=== PATIENT | female | born 1965 | race Caucasian/White ===

== ENCOUNTER 2018-02-12 19:12 | Emergency (ER) | payer MEDICAID ==
--- NOTE | 2018-02-12 19:43 | EDM.PDOC ---
ED HPI GENERAL MEDICAL PROBLEM - General Chief Complaint: Genitourinary Problem Stated Complaint: POSS UTI Time Seen by Provider: 02/12/18 19:25 Source of Information: Reports: Patient, Significant Other (Boyfriend) History Limitations: Reports: No Limitations - History of Present Illness INITIAL COMMENTS - FREE TEXT/NARRATIVE: The patient states that she developed dysuria, urinary frequency, and urgency, as well as noticing slight blood when she wipes, this morning. She denies abdominal or back pain. No recent fever, nausea, or vomiting. No prior similar symptoms. The patient states that she has not taken any [id number] medications, such as Azo, today. The patient states that she just moved to [place] and does not have a PCP. Bladder Pain Score (Numeric/FACES): 8 - Related Data Home Meds: Home Meds Sulfamethoxazole/Trimethoprim [Bactrim Ds Tablet] 1 tab PO Q12H #9 tablet [Rx] Past Medical History Musculoskeletal History: Reports: Osteoarthritis, Other (See Below) (Scoliosis) Psychiatric History: Reports: Anxiety, Depression - Infectious Disease History Infectious Disease History: Reports: Hepatitis C (treated, cured) - Past Surgical History GI Surgical History: Reports: Appendectomy Female Surgical History: Reports: Hysterectomy Social & Family History - Tobacco Use Smoking Status *Q: Current Every Day Smoker Years of Tobacco use: 36 Packs/Tins Daily: 1 - Caffeine Use Caffeine Use: Reports: Coffee, Soda - Alcohol Use Alcohol Use History: Yes Date/Time of Last Drink Comment: In recovery since 2016 - Recreational Drug Use Recreational Drug Use: Yes Drug Use in Last 12 Months: Yes Recreational Drug Type: Reports: Marijuana/Hashish (last smoked mid 2016), Methamphetamine (last snorted mid 2016) Other Recreational Drug Type: past history-last used 1 yr ago - Living Situation & Occupation Living situation: Reports: , with Family (Daughter, her 2 kids, and her boyfriend) Occupation: Disabled ED ROS GENERAL - Review of Systems Review Of Systems: ROS reveals no pertinent complaints other than HPI. ED EXAM, RENAL/ - Physical Exam Exam: See Below Exam Limited By: No Limitations General Appearance: Alert, WD/WN, No Apparent Distress Eye Exam: Bilateral Eye: Normal Inspection Ears: Normal External Exam, Hearing Grossly Normal Nose: Normal Inspection, No Blood Throat/Mouth: Normal Inspection, Normal Lips, Normal Voice, No Airway Compromise Head: Atraumatic, Normocephalic Neck: Normal Inspection, Full Range of Motion Respiratory/Chest: No Respiratory Distress, Lungs Clear, Normal Breath Sounds, No Accessory Muscle Use Cardiovascular: Normal Peripheral Pulses, Regular Rate, Rhythm, No Gallop, No JVD, No Murmur, No Rub GI/Abdominal: Normal Bowel Sounds, Soft, Non-Tender (including suprapubically), No Organomegaly, No Distention, No Abnormal Bruit, No Mass (Female) Exam: Deferred Rectal (Female) Exam: Deferred Back Exam: Normal Inspection, Full Range of Motion. No: CVA Tenderness (L), CVA Tenderness (R) Extremities: Normal Inspection, Normal Range of Motion, No Pedal Edema, Normal Capillary Refill Neurological: Alert, Oriented, Normal Cognition, No Motor/Sensory Deficits Psychiatric: Normal Affect Skin Exam: Warm, Dry, Intact, Normal Color, No Rash Course - Vital Signs Last Recorded V/S: Last Vital Signs Temp 36.7 C 02/12/18 19:31 Pulse 84 02/12/18 19:31 Resp 20 02/12/18 19:31 BP 125/73 02/12/18 19:31 Pulse Ox 99 02/12/18 19:31 - Orders/Labs/Meds Orders: Active Orders 24 hr Category Date Time Status CULTURE URINE [RM] Stat Lab 02/12/18 20:37 Ordered Sulfamethoxazole/Trimethoprim [Septra DS] Med 02/12/18 20:38 Once 1 tab PO ONETIME ONE Labs: Laboratory Tests 02/12/18 Range/Units 19:18 Urine Color Dark yellow (Yellow) Urine Appearance Turbid H (Clear) Urine pH 6.5 (5.0-8.0) Ur Specific [place] > or = 1.030 (1.005-1.030) Urine Protein 2+ H (Negative) Urine Glucose (UA) Negative (Negative) Urine Ketones Trace H (Negative) Urine Occult Blood 3+ H (Negative) Urine Nitrite Positive H (Negative) Urine Bilirubin Negative (Negative) Urine Urobilinogen 1.0 (0.2-1.0) Ur Leukocyte Esterase 3+ H (Negative) Urine RBC 10-20 H (0-5) /hpf Urine WBC 10-20 H (0-5) /hpf Ur Epithelial Cells 0-5 (0-5) /hpf Urine Bacteria Few (FEW) /hpf Urine Mucus Few (FEW) /hpf - Re-Assessments/Exams Free Text/Narrative Re-Assessment/Exam: 02/12/18 20:38 The chemical analysis of the patient's urine was done quickly, however, there was a delay in receiving the microscopic analysis. The patient's urinalysis is consistent with a UTI. A urine culture has been ordered. I will start her on empiric Bactrim. She will also receive peridium, which she can purchase [id number] if she wishes. Departure - Departure Time of Disposition: 20:44 Disposition: Home, Self-Care 01 Condition: Good Clinical Impression: Cystitis - Discharge Information Referrals: PCP,None [Primary Care Provider] - Dania Tamez MD [Physician] - Forms: ED Department Discharge Additional Instructions: You were seen in the emergency room for burning with urination and frequent urination. Workup in the ER included a urinalysis, which confirmed that you have a urinary tract infection. You have been started on the antibiotic Bactrim. A prescription for Bactrim has been sent to the [facility] located in the [employer] store. Take one tablet every 12 hours, starting tomorrow morning, 02/13/2018, as prescribed. Finish the entire prescription unless told otherwise by a doctor. You have also been started on the pain medicine Azo (pyridium). This medicine is available [id number]. If you decide to take it, you may take a total of 6 doses, including the dose you had in the ER. You may take 2 doses a day for 3 days, or 3 doses a day for 2 days. Be aware that Azo will turn your urine orange - this is normal. Stay adequately hydrated. A sample of your urine has been sent for culture. The culture results should be back by 02/15/2018. Follow-up with Dr. Dania Tamez as a primary care physician on Tuesday, 2017, to check on your urine culture results, as well as to establish her as a primary care physician. If any other problems, please do not hesitate to return to the ER. - My Orders Last 24 Hours: My Active Orders 02/12/18 20:37 CULTURE URINE [RM] Stat 02/12/18 20:38 Sulfamethoxazole/Trimethoprim [Septra DS] 1 tab PO ONETIME ONE - Assessment/Plan Last 24 Hours: My Active Orders 02/12/18 20:37 CULTURE URINE [RM] Stat 02/12/18 20:38 Sulfamethoxazole/Trimethoprim [Septra DS] 1 tab PO ONETIME ONE
[2018-02-12] MEDS ORDERED: Sulfamethoxazole/Trimethoprim 800-160 MG Tab PO ONE (20:38)
[2018-02-12] MEDS ORDERED: Phenazopyridine 95 MG Tab PO STA (20:47)
== END 2018-02-12 21:00 | disposition home or self-care (01) ==
LOC: JD.ED 19:12
DX: N30.90 Cystitis, unspecified without hematuria (principal); F17.210 Nicotine dependence, cigarettes, uncomplicated
CPT/HCPCS: 81001; 87086; 87088; 87186; 99283; A9270

== ENCOUNTER 2018-05-19 09:06 | Emergency (ER) | payer MEDICAID ==
--- NOTE | 2018-05-19 10:03 | EDM.PDOC ---
<Heather Bruno - Last Filed: 05/19/18 09:56> ED HPI GENERAL MEDICAL PROBLEM - General Chief Complaint: ENT Problem Stated Complaint: DENTAL COMPLAINT Time Seen by Provider: 05/19/18 09:38 - History of Present Illness INITIAL COMMENTS - FREE TEXT/NARRATIVE: Florence is a 53-year-old woman who presents with dental pain in her right lower jaw for the past two days. Pain is partially relieved by Tylenol and hot/cold compresses. She does not regularly see a dentist and does not have dental insurance. She has a history of extensive tooth decay due to meth use. 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 Her top teeth have been removed and she wears dentures. She has no dental implants. Florence reports a mild bilateral temporal headache. She denies fever, chills, shortness of breath, difficulty eating/swallowing, difficulty speaking or difficulty moving her tongue. She takes Paxil and trazodone and is a 0.75 pack- per-day smoker. She smoked from age 16 until she became with her daughter in 1998 (18 years), and started smoking again 14 months ago when she stopped using meth. She is concerned about substance abuse, so she does not want to take any narcotic pain medication. Right Lower Oral/Mouth Pain Score (Numeric/FACES): 9 - Related Data Allergies Allergy/AdvReac Type Severity Reaction Status Date / Time ketorolac [From Toradol] Allergy Vomiting Verified 05/19/18 09:14 Home Meds: Home Meds Amoxicillin/Potassium Clav [Augmentin 875-125 Tablet] 1 each PO BID #14 tablet 05/19/18 [Rx] Naproxen [Naprosyn] 500 mg PO Q12HR #14 tab 05/19/18 [Rx] PARoxetine [Paxil] 20 mg PO DAILY 05/19/18 [History] traZODone HCl [Trazodone HCl] 150 mg PO BEDTIME 05/19/18 [History] Past Medical History HEENT History: Reports: Impaired Vision Respiratory History: Reports: COPD Genitourinary History: Reports: UTI, Recurrent 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 - Past Surgical History HEENT Surgical History: Reports: Oral Surgery GI Surgical History: Reports: Appendectomy Female Surgical History: Reports: Hysterectomy Social & Family History - Family History Family Medical History: Noncontributory Cardiac: Reports: CAD Oncologic: Reports: Breast - Tobacco Use Smoking Status *Q: Current Every Day Smoker Years of Tobacco use: 30 Packs/Tins Daily: 0.7 - Caffeine Use Caffeine Use: Reports: Coffee - Recreational Drug Use Recreational Drug Use: Yes Drug Use in Last 12 Months: No Recreational Drug Type: Reports: Methamphetamine - Living Situation & Occupation Living situation: Reports: , with Family (Daughter, her 2 kids, and her boyfriend) Occupation: Disabled ED ROS ENT - Review of Systems Review Of Systems: ROS reveals no pertinent complaints other than HPI. Constitutional: Denies: Fever, Chills HEENT: Reports: Dental Pain (dental pain in right lower jaw). Denies: Ear Discharge, Eye Pain, Sinus Problem, Throat Pain, Throat Swelling Respiratory: Denies: Shortness of Breath, Cough Cardiovascular: Reports: No Symptoms Endocrine: Reports: Other GI/Abdominal: Reports: No Symptoms Musculoskeletal: Reports: No Symptoms Skin: Reports: No Symptoms Neurological: Reports: Headache (bilateral temporal headache, mild). Denies: Trouble Speaking, Change in Speech Psychiatric: Reports: Other Immunologic: Reports: No Symptoms, Other (no known allergies to antibiotics) ED EXAM, ENT - Physical Exam Exam Limited By: No Limitations General Appearance: Alert, Mild Distress, Thin Eye Exam: Bilateral Eye: EOMI Ears: Normal External Exam. No: Mastoid Swelling, Mastoid Tenderness Mouth/Throat: Dental Pain, Dental Tenderness. No: Normal Teeth (dentures on upper teeth; widespread dental decay on lower teeth. Did not appreciate any masses in the mouth. Moderate tenderness diffusely to right lower gumline. Multiple teeth are missing from the lower jaw, including all molars on the right lower jaw. ), Bleeding, Hoarse Voice, Lip Swelling, Oral Ulcers, Pharyngeal Erythema, Throat Swelling, Tonsillar Exudates Neck: Normal Inspection (no fullness or lymphadenopathy noted), Non-Tender, Lymphadenopathy (L) Cardiovascular: Normal Peripheral Pulses, Regular Rate, Rhythm Psychiatric: Anxious Course - Vital Signs Last Recorded V/S: Last Vital Signs Temp 97.2 F 05/19/18 09:19 Pulse 80 05/19/18 09:19 Resp 16 05/19/18 09:19 BP 122/62 05/19/18 09:19 Pulse Ox 96 05/19/18 09:19 Departure - Departure Disposition: Home, Self-Care 01 Clinical Impression: Pain, dental - Discharge Information Prescriptions: Naproxen [Naprosyn] 500 mg PO Q12HR #14 tab Amoxicillin/Potassium Clav [Augmentin 875-125 Tablet] 1 each PO BID #14 tablet Instructions: Preventive Dental Care, Adult Referrals: Ping Tamez MD [Primary Care Provider] - Forms: ED Department Discharge Additional Instructions: augmentin 875 mg twice daily, take that with food. Naprosyn 500 mg twice daily for pain and inflamation as needed. See dentist as soon as possible, early next week preferable. Follow up clinic if unable to get into dentist next week and symptoms not resolving as expected. Return to ED as needed. <Wilfrido Horner - Last Filed: 05/22/18 12:15> ED ROS ENT - Review of Systems Review Of Systems: See Below ED EXAM, ENT - Physical Exam Exam: See Below Course - Re-Assessments/Exams Free Text/Narrative Re-Assessment/Exam: 05/22/18 12:14 inititial hx and exam was done by Heather Wesley, 4th year medical student. I also interviewed and examined patient. I agree with her hx and exam as documented. Discharge instr. as documented. Departure - Departure Time of Disposition: 10:14 Condition: Fair
== END 2018-05-19 10:38 | disposition home or self-care (01) ==
LOC: JD.ED 09:06
DX: K02.9 Dental caries, unspecified (principal); F17.210 Nicotine dependence, cigarettes, uncomplicated; F41.9 Anxiety disorder, unspecified; F32.9 Major depressive disorder, single episode, unspecified; Z79.899 Other long term (current) drug therapy; Z88.6 Allergy status to analgesic agent
CPT/HCPCS: 99283

== ENCOUNTER 2018-10-28 20:48 | Emergency (ER) | payer MEDICAID ==
[2018-10-28] MEDS ORDERED: HYDROmorphone 1 MG/ML Syringe IM ONE (21:47)
--- NOTE | 2018-10-28 21:53 | EDM.PDOC ---
ED HPI GENERAL MEDICAL PROBLEM - General Chief Complaint: Lower Extremity Injury/Pain Stated Complaint: LEFT KNEE PAIN FELL ON ICE Time Seen by Provider: 10/28/18 21:03 Source of Information: Reports: Patient, RN Notes Reviewed History Limitations: Reports: No Limitations - History of Present Illness INITIAL COMMENTS - FREE TEXT/NARRATIVE: Patient is a 53-year-old female who presents to the ED for the evaluation of left knee pain after a fall on the ice. He states that approximately 6:30 PM tonight she was walking out of her house when she slipped on the ice and fell and hit the lateral side of her left knee. She states that this was just below her left knee, she did not take anything for pain at this time. She states that her foot feels numb however she does have good pulses and can feel my touch and move her toes and ankle appropriately. Her primary care doc is Dr. Tamez. She denies any left hip pain or left ankle pain. She would rate her pain at a 8 out of 10 today. She further denies hitting her head or any loss of consciousness. 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 - Past Surgical History HEENT Surgical History: Reports: Oral Surgery GI Surgical History: Reports: Appendectomy Female Surgical History: Reports: Hysterectomy Social & Family History - Family History Family Medical History: Noncontributory Cardiac: Reports: CAD Oncologic: Reports: Breast - Caffeine Use Caffeine Use: Reports: Coffee - Living Situation & Occupation Living situation: Reports: , with Family (Daughter, her 2 kids, and her boyfriend) Occupation: Disabled Review of Systems - Review of Systems Review Of Systems: See Below Constitutional: Reports: No Symptoms Eyes: Reports: No Symptoms Ears: Reports: No Symptoms Nose: Reports: No Symptoms Mouth/Throat: Reports: No Symptoms Respiratory: Reports: No Symptoms Cardiovascular: Reports: No Symptoms GI/Abdominal: Reports: No Symptoms Genitourinary: Reports: No Symptoms Musculoskeletal: Reports: Leg Pain (Left lower leg just inferior to left knee) Skin: Reports: No Symptoms Neurological: Reports: No Symptoms Psychiatric: Reports: No Symptoms ED EXAM, GENERAL - Physical Exam Exam: See Below Exam Limited By: No Limitations General Appearance: Alert, WD/WN, No Apparent Distress Eye Exam: Bilateral Eye: Normal Inspection Head: Atraumatic, Normocephalic Neck: Normal Inspection, Supple, Non-Tender, Full Range of Motion Respiratory/Chest: No Respiratory Distress, Lungs Clear, Normal Breath Sounds, No Accessory Muscle Use, Chest Non-Tender Cardiovascular: Normal Peripheral Pulses, Regular Rate, Rhythm, No Murmur GI/Abdominal: Normal Bowel Sounds, Soft, Non-Tender, No Distention Back Exam: Normal Inspection, Full Range of Motion Extremities: Normal Inspection, No Pedal Edema, Normal Capillary Refill, Limited Range of Motion (Of left knee secondary to pain). No: Joint Swelling, Mottled Neurological: Alert, Oriented, Normal Cognition, Normal Reflexes, No Motor/ Sensory Deficits Psychiatric: Normal Affect, Normal Mood Skin Exam: Warm, Dry, Intact, Normal Color, No Rash Course - Vital Signs Last Recorded V/S: Last Vital Signs Temp 99.0 F 10/28/18 21:03 Pulse 74 10/28/18 21:03 Resp 20 10/28/18 21:03 BP 115/62 10/28/18 21:03 Pulse Ox 99 10/28/18 21:03 - Orders/Labs/Meds Orders: Active Orders 24 hr Category Date Time Status Knee 3V Lt [CR] Stat Exams 10/28/18 21:22 Ordered Tibia Fibula Lt [CR] Stat Exams 10/28/18 21:22 Ordered HYDROmorphone [Dilaudid] Med 10/28/18 21:47 Once 0.5 mg IM ONETIME ONE - Re-Assessments/Exams Free Text/Narrative Re-Assessment/Exam: 10/28/18 21:52 Patient presents to the ED for the evaluation of left knee pain. I did order a left knee x-ray and left tib-fib x-ray in further evaluation of this. Did review this with Dr. Baeza and there is no acute fracture that is appreciated at this time. Will give general recommendations and discharge home. Have ordered 0.5 mg of IM Dilaudid for pain management in the ED ivette. Departure - Departure Time of Disposition: 21:53 Disposition: Home, Self-Care 01 Condition: Fair Clinical Impression: Knee pain Qualifiers: Chronicity: acute Laterality: left Qualified Code(s): M25.562 - Pain in left knee - Discharge Information *PRESCRIPTION DRUG MONITORING PROGRAM REVIEWED*: No *COPY OF PRESCRIPTION DRUG MONITORING REPORT IN PATIENT RUFINO: No Instructions: Knee Pain, Adult, [id number] Referrals: Ping Tamez MD [Primary Care Provider] - Additional Instructions: You have been evaluated in the ED for your left knee pain. Your x-ray demonstrated no acute fracture of your left knee or left lower leg. Please use ice/heat as tolerated to the affected area. You may take Aleve 500mg Q12 hours for pain relief. Please do so until you have a tolerable level of pain with activity. If your pain does not get much better within 1-1/2 to 2 weeks please seek re- evaluation by your primary care provider for a possible soft tissue injury not made apparent at ivette's visit. Please return to ED if your symptoms should change or worsen. - My Orders Last 24 Hours: My Active Orders 10/28/18 21:22 Knee 3V Lt [CR] Stat Tibia Fibula Lt [CR] Stat 10/28/18 21:47 HYDROmorphone [Dilaudid] 0.5 mg IM ONETIME ONE - Assessment/Plan Last 24 Hours: My Active Orders 10/28/18 21:22 Knee 3V Lt [CR] Stat Tibia Fibula Lt [CR] Stat 10/28/18 21:47 HYDROmorphone [Dilaudid] 0.5 mg IM ONETIME ONE
--- NOTE | 2018-10-30 07:03 | CR ---
Left knee: AP, lateral and sunrise patellar views of the left knee were obtained. Comparison: No prior knee exam. Medial and lateral joint compartments are maintained in height. No joint effusion is seen. No acute fracture or other abnormality is seen. Impression: 1. No abnormality is appreciated on left knee exam. Diagnostic code #1
--- NOTE | 2018-10-30 07:03 | CR ---
Left tibia and fibula: Two views of the left tibia and fibula were obtained. Comparison: No previous study. No fracture or other bony abnormality is seen. Impression: 1. No abnormality is seen on two-view left tibia and fibula exam. Diagnostic code #1
== END 2018-10-28 22:42 | disposition home or self-care (01) ==
LOC: JD.ED 20:48
DX: M25.562 Pain in left knee (principal); F41.9 Anxiety disorder, unspecified; F32.9 Major depressive disorder, single episode, unspecified; Z79.899 Other long term (current) drug therapy; Z88.6 Allergy status to analgesic agent; W00.0XXA Fall on same level due to ice and snow, initial encounter
CPT/HCPCS: 73562; 73590; 96372; 99283; J1170

== ENCOUNTER 2019-08-14 17:28 | Observation (INO) | payer MEDICAID ==
[2019-08-14] MEDS ORDERED: HYDROmorphone 0.5 MG/0.5 ML Syringe IVPUSH ONE ×2 (17:57→19:01)
[2019-08-14] MEDS ORDERED: Ondansetron 4 MG/2 ML SDV IVPUSH ONE (17:57)
[2019-08-14] MEDS ORDERED: Sodium Chloride 0.9% 10 ML Syringe FLUSH PRN (17:57)
--- NOTE | 2019-08-14 18:12 | EDM.PDOC ---
<Wilfrido Horner Radha - Last Filed: 08/14/19 19:01> ED HPI GENERAL MEDICAL PROBLEM - General Chief Complaint: Abdominal Pain Stated Complaint: R SIDE ABD PAIN Time Seen by Provider: 08/14/19 17:52 Source of Information: Reports: Patient, RN Notes Reviewed - History of Present Illness INITIAL COMMENTS - FREE TEXT/NARRATIVE: 54-year-old lady comes in with severe abdominal pain. This started about 3 hours ago. Upper right abdomen with some radiation to her back. It is severe, sharp and shooting. Nausea but no vomiting. She had felt fine earlier today. She did eat a light breakfast this past AM and than had steak and cheesy potato hashbrowns about 4 hrs ago. There is been no diarrhea. No other family members ill. She has had prior appendectomy, she still does have her gallbladder with no history of prior gallbladder related problems. 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: Reports: Other (see below) Other 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: none Right Upper Abdomen Pain Score (Numeric/FACES): 10 - Related Data Allergies Allergy/AdvReac Type Severity Reaction Status Date / Time ketorolac [From Toradol] Allergy Vomiting Verified 10/28/18 21:08 Home Meds: Home Meds traZODone HCl [Trazodone HCl] 150 mg PO BEDTIME 05/19/18 [History] Sertraline [Zoloft] 25 mg PO DAILY 08/14/19 [History] carBAMazepine [Carbamazepine] 200 mg PO BID 08/14/19 [History] Past Medical History HEENT History: Reports: Impaired Vision Respiratory History: Reports: COPD Genitourinary History: Reports: UTI, Recurrent 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 - Infectious Disease History Infectious Disease History: Reports: Hepatitis C Other Infectious Disease History: had treatment and now is clear since November. - Past Surgical History HEENT Surgical History: Reports: Oral Surgery GI Surgical History: Reports: Appendectomy Female Surgical History: Reports: Hysterectomy Social & Family History - Family History Family Medical History: Noncontributory Cardiac: Reports: CAD Oncologic: Reports: Breast - Tobacco Use Smoking Status *Q: Current Every Day Smoker Years of Tobacco use: 2 Packs/Tins Daily: 1 - Caffeine Use Caffeine Use: Reports: Coffee, Soda - Recreational Drug Use Recreational Drug Use: No - Living Situation & Occupation Living situation: Reports: , with Family (Daughter, her 2 kids, and her boyfriend) Occupation: Disabled ED ROS GENERAL - Review of Systems Review Of Systems: See Below Constitutional: Denies: Fever, Chills, Diaphoresis HEENT: Reports: No Symptoms Respiratory: Denies: Shortness of Breath Cardiovascular: Denies: Chest Pain GI/Abdominal: Reports: Abdominal Pain, Nausea. Denies: Diarrhea, Hematochezia, Melena, Vomiting : Reports: No Symptoms Musculoskeletal: Reports: Back Pain Skin: Reports: No Symptoms Neurological: Reports: No Symptoms ED EXAM, GI/ABD - Physical Exam Exam: See Below General Appearance: Alert, Moderate Distress Throat/Mouth: Normal Inspection, Normal Oropharynx Head: Atraumatic. No: Facial Swelling Neck: Supple, Full Range of Motion Respiratory/Chest: No Respiratory Distress, Lungs Clear, Normal Breath Sounds Cardiovascular: Regular Rate, Rhythm GI/Abdominal Exam: Soft, Tender (Right upper abdomen, upper mid abdomen, left abdomen nontender). No: Guarding, Rebound Back Exam: No: CVA Tenderness (L), CVA Tenderness (R) Extremities: Normal Inspection, Normal Range of Motion Neurological: Alert, Oriented, No Motor/Sensory Deficits Skin Exam: Warm, Dry, Normal Color Course - Vital Signs Last Recorded V/S: Last Vital Signs Temp 37.1 C 08/14/19 17:44 Pulse 86 08/14/19 17:44 Resp 20 08/14/19 17:44 BP 116/73 08/14/19 17:44 Pulse Ox 100 08/14/19 17:44 - Orders/Labs/Meds Orders: Active Orders 24 hr Category Date Time Status Patient Status [ADT] Routine ADT 08/14/19 23:59 Active Activity as Tolerated [RC] .Routine Care 08/14/19 23:59 Ordered Antiembolic Devices [RC] PER UNIT ROUTINE Care 08/15/19 00:00 Ordered Oxygen Therapy [RC] PRN Care 08/14/19 23:59 Ordered Peripheral IV Care [RC] . DIRECTED Care 08/14/19 17:58 Active RT Incentive Spirometry [RC] Q1HWA Care 08/14/19 23:59 Ordered Vital Signs [RC] Q8H Care 08/14/19 23:59 Ordered Nothing Per Oral Diet [DIET] Diet 08/15/19 Breakfast Ordered Abdomen Pelvis w Cont [CT] Stat Exams 08/14/19 21:58 Taken CBC WITH AUTO DIFF [HEME] AM Lab 08/15/19 05:11 Ordered Heparin Sodium Med 08/14/19 23:45 Ordered 5,000 units SUBCUT Q8H Lactated Ringers @ 100 MLS/HR(1000ml Bag) Med 08/14/19 23:45 Ordered Lactated Ringers [Ringers, Lactated] 1,000 ml IV ASDIRECTED Sertraline [Zoloft] Med 08/15/19 09:00 Ordered 25 mg PO DAILY Sodium Chloride 0.9% [Saline Flush] Med 08/14/19 17:57 Active 10 ml FLUSH ASDIRECTED PRN carBAMazepine [TEGretol Tab] Med 08/15/19 09:00 Ordered 200 mg PO BID traZODone HCl [Trazodone HCl] Med 08/15/19 21:00 Ordered 150 mg PO BEDTIME Peripheral IV Insertion Adult [OM.PC] Stat Oth 08/14/19 17:57 Ordered Sequential Compression Device [OM.PC] Routine Oth 08/14/19 23:59 Ordered Resuscitation Status Routine Resus Stat 08/14/19 23:58 Ordered Medication Orders Sodium Chloride (Saline Flush) 10 ml FLUSH ASDIRECTED PRN PRN Reason: Keep Vein Open Last Admin: 08/14/19 18:12 Dose: 10 ml Labs: Laboratory Tests 08/14/19 08/14/19 08/14/19 Range/Units 18:05 18:05 18:05 WBC 19.34 H (3.98-10.04) K/mm3 RBC 4.57 (3.98-5.22) M/mm3 Hgb 13.4 (11.2-15.7) gm/dl Hct 39.5 (34.1-44.9) % MCV 86.4 (79.4-94.8) fl MCH 29.3 (25.6-32.2) pg MCHC 33.9 (32.2-35.5) g/dl RDW Std Deviation 39.9 (36.4-46.3) fL Plt Count 475 H (182-369) K/mm3 MPV 9.3 L (9.4-12.3) fl Neut % (Auto) 81.7 H (34.0-71.1) % Lymph % (Auto) 12.0 L (19.3-51.7) % [place] % (Auto) 5.7 (4.7-12.5) % Eos % (Auto) 0.2 L (0.7-5.8) Baso % (Auto) 0.2 (0.1-1.2) % Neut # (Auto) 15.79 H (1.56-6.13) K/mm3 Lymph # (Auto) 2.33 (1.18-3.74) K/mm3 [place] # (Auto) 1.11 H (0.24-0.36) K/mm3 Eos # (Auto) 0.04 (0.04-0.36) K/mm3 Baso # (Auto) 0.03 (0.01-0.08) K/mm3 Manual Slide Review Abnormal smear Sodium 140 (136-145) mEq/L Potassium 3.5 (3.5-5.1) mEq/L Chloride 100 (98-107) mEq/L Carbon Dioxide 26 (21-32) mEq/L Anion Gap 17.5 H (5-15) BUN 10 (7-18) mg/dL Creatinine 0.7 (0.55-1.02) mg/dL Est Cr Clr Drug Dosing 72.37 mL/min Estimated GFR (MDRD) > 60 (>60) mL/min BUN/Creatinine Ratio 14.3 (14-18) Glucose 104 (74-106) mg/dL Calcium 9.2 (8.5-10.1) mg/dL Total Bilirubin 0.3 (0.2-1.0) mg/dL GGT 40 (5-55) U/L AST 15 (15-37) U/L ALT 19 (14-59) U/L Alkaline Phosphatase 101 (46-116) U/L C-Reactive Protein 7.8 H* (<1.0) mg/dL Total Protein 8.1 (6.4-8.2) g/dl Albumin 3.3 L (3.4-5.0) g/dl Globulin 4.8 gm/dL Albumin/Globulin Ratio 0.7 L (1-2) Lipase 227 (73-393) U/L Meds: Medications Generic Name Dose Route Start Last Admin Trade Name Freq PRN Reason Stop Dose Admin Sodium Chloride 10 ml 08/14/19 17:57 08/14/19 18:12 Saline Flush FLUSH 10 ml ASDIRECTED PRN Administration Keep Vein Open Discontinued Medications Generic Name Dose Route Start Last Admin Trade Name Freq PRN Reason Stop Dose Admin Hydromorphone HCl 0.5 mg 08/14/19 17:57 08/14/19 18:06 Dilaudid IVPUSH 08/14/19 17:58 0.5 mg ONETIME ONE Administration Hydromorphone HCl 0.5 mg 08/14/19 19:01 08/14/19 19:14 Dilaudid IVPUSH 08/14/19 19:02 0.5 mg ONETIME ONE Administration Ondansetron HCl 4 mg 08/14/19 17:57 08/14/19 18:08 Zofran IVPUSH 08/14/19 17:58 4 mg ONETIME ONE Administration - Re-Assessments/Exams Free Text/Narrative Re-Assessment/Exam: 08/14/19 18:55 White blood count is come back elevated at 19,300, C-reactive protein 7.8. Lipase is normal. Bilirubin, LFTs normal. 08/14/19 18:56 08/14/19 19:01 right upper quadrant pain is starting to come back. Will repeat Dilaudid 0.5 mg IV. As noted in history she does have history of prior appendectomy. She was pain-free up until just 3 or 4 hours ago. She did have steak with cheesy hashbrowns at around 2:30 this afternoon so we'll have to wait until about 8:30 to get a RUQ US which she probably needs this evening with consideration of severe RUQ pain that is not going away and quite elevated WBC. It is change of shift. Will transfer care to Dr Cantrell. Departure - Departure Disposition: Admitted As Inpatient 66 Clinical Impression: Acute cholecystitis - Discharge Information Referrals: Ping Tamez MD [Primary Care Provider] - Macho Garrison MD [Physician] - Forms: ED Department Discharge Sepsis Event Note - Evaluation Sepsis Screening Result: No Definite Risk - Focused Exam Vital Signs: Vital Signs Temp Pulse Resp BP Pulse Ox 08/14/19 17:44 37.1 C 86 20 116/73 100 Date Exam was Performed: 08/14/19 Time Exam was Performed: 19:01 - My Orders Last 24 Hours: My Active Orders 08/14/19 21:58 Abdomen Pelvis w Cont [CT] Stat - Assessment/Plan Last 24 Hours: My Active Orders 08/14/19 21:58 Abdomen Pelvis w Cont [CT] Stat <Crow Cantrell - Last Filed: 08/15/19 00:03> Social & Family History - Tobacco Use Years of Tobacco use: 32 - Alcohol Use Alcohol Use History: Yes Date/Time of Last Drink Comment: Alcoholic - sober since 2017 - Recreational Drug Use Recreational Drug Use: Yes Drug Use in Last 12 Months: No Recreational Drug Type: Reports: Marijuana/Hashish (last smoked 2016), Methamphetamine (last snorted 2016) - Living Situation & Occupation Living situation: Reports: , with Significant Other (Boyfriend) Occupation: Unemployed ED ROS GENERAL - Review of Systems Review Of Systems: Comprehensive ROS is negative, except as noted in HPI. Course - Re-Assessments/Exams Free Text/Narrative Re-Assessment/Exam: 08/14/19 21:[address] Horner. Ultrasound of the right upper quadrant is read by Dr. Roldan as: 1. Slightly dilated gallbladder as well as mildly dilated CBD. No shadowing gallstones are seen. Gallbladder wall is slightly thickened. Acalculous cholecystitis is difficult to exclude. Biliary HIDA scan with ejection fraction would be helpful to further evaluate. 2. No additional abnormality is identified on right upper quadrant abdominal ultrasound. 08/14/19 21:57 At present, the patient is relatively pain-free, although she states that the pain may be coming back. On examination, she has no abdominal tenderness whatsoever. Case discussed with Dr. Garrison at 21:53. He does not feel that there is enough evidence to justify undergoing a cholecystectomy at this time, primarily because of the lack of gallstones, however, he would like me to order a CT scan of the abdomen and pelvis - primarily because of the elevated WBC count - and he will come to the ED to evaluate the patient himself, shortly. 08/14/19 23:33 Dr. Garrison is here. He has viewed the CT images, although the Radiologist's report has not yet resulted. He will evaluate the patient. 08/14/19 23:56 CT of the abdomen and pelvis with oral and IV contrast is read by [facility] as: 1. A couple of pulmonary nodules at the left lung base measuring up to 5 mm. Further workup may be indicated. 2. Irregular enhancement of the biliary endothelium. While this could represent cholangitis, cholangiocarcinoma is also of concern. 3. Dilatation of the gallbladder and intrahepatic bile ducts. 4. eccentric [sic] gallbladder wall thickening that is present raises the question of cholecystitis. 5. Solitary 2 cm hepatic mass, suspicious for metastasis. Case discussed with Dr. Garrison. He has evaluated the patient and discussed the case with the [facility] Radiologist leasing professional. While the patient's abdominal exam is now benign, Dr. Garrison would like to admit her to his service to perform a HIDA scan tomorrow. If positive, he plans to take the patient to the operating room for a lap-cholecystectomy. If negative, she will need an outpatient workup that will likely include an ERCP. Departure - Departure Time of Disposition: 00:01 Condition: Fair - Discharge Information *PRESCRIPTION DRUG MONITORING PROGRAM REVIEWED*: Not Applicable *COPY OF PRESCRIPTION DRUG MONITORING REPORT IN PATIENT RUFINO: Not Applicable Sepsis Event Note - Focused Exam Date Exam was Performed: 08/15/19 Time Exam was Performed: 00:02 - My Orders Last 24 Hours: My Active Orders 08/14/19 21:58 Abdomen Pelvis w Cont [CT] Stat - Assessment/Plan Last 24 Hours: My Active Orders 08/14/19 21:58 Abdomen Pelvis w Cont [CT] Stat
--- NOTE | 2019-08-14 21:30 | US ---
Limited abdominal ultrasound: Multiple real-time images of the upper right abdomen were obtained. Comparison: No previous abdominal imaging. Liver shows no focal abnormality. Right kidney shows no hydronephrosis or mass and has a length of 10.1 cm. Common bile duct is somewhat dilated at 7.3 cm. Gallbladder is also slightly dilated. No shadowing gallstones are seen. Gallbladder wall appears somewhat thickened. Impression: 1. Slightly dilated gallbladder as well as mildly dilated CBD. No shadowing gallstones are seen. Gallbladder wall is slightly thickened. Acalculous cholecystitis is difficult to exclude. Biliary HIDA scan with ejection fraction would be helpful to further evaluate. 2. No additional abnormality is identified on right upper quadrant abdominal ultrasound. Diagnostic code #3 This report was dictated in [place] Standard Time
[2019-08-14] MEDS ORDERED: Lactated Ringers 1,000 ML IV SCH (23:45)
--- NOTE | 2019-08-15 00:15 | PCM.HP.2 ---
H&P History of Present Illness - General Date of Service: 08/15/19 Admit Problem/Dx: Admission Diagnosis/Problem Admission Diagnosis/Problem Cholecystitis without cholelithiasis Source of Information: Patient History Limitations: Reports: No Limitations - History of Present Illness Onset of Symptoms: Reports: Today Duration of Symptoms: Reports: Hour(s):, Improving Location: Reports: Abdomen Severity: Severe Associated Symptoms: Reports: No Other Symptoms Other HPI/Comments: Ms. Collins is a 54 yo woman presenting with RUQ pain. The pain began at 2 pm on 08/14 about one hour after eating steak and cheesy potatoes. The pain was severe and localized at the right upper quadrant. She denies associated symptoms such as fever or nausea. She has never had this pain before. It has essentially gone away at the time of evaluation, 10 hours after onset. She reports only psychiatric health issues and takes medications for depression/ anxiety. She has a history of Hepatitis C but has been disease free for 2.5 years per her report. She has had an open appendectomy and hysterectomy in the past. She denies any history of IV drug use. She has extensive tattoos. She is a smoker and denies any other drug use within the past two years. Her mother was an alcoholic and of complications from cirrhosis. On presentation, the patient has a WBC >19,000 with otherwise normal labs including LFTs. Her vitals are normal and abdominal exam benign. She does have a palpable large gallbladder, which is seen on CT scan. The scan shws a small radiodense lesion on the right lobe of the liver that looks like a small abscess or metastasis. The gallbladder is very large with thickened wall and some pericholecystic fluid but no evidence of gallstones. Per discussion with the initial interpreting radiologist, the distal common bile duct epithelial surface appears abnormal, raising concern for cholangiocarcinoma. 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 - Infectious Disease History Infectious Disease History: Reports: Hepatitis C Other Infectious Disease History: had treatment and now is clear since November. - Past Surgical History HEENT Surgical History: Reports: Oral Surgery GI Surgical History: Reports: Appendectomy Female Surgical History: Reports: Hysterectomy Social & Family History - Family History Family Medical History: Noncontributory Cardiac: Reports: CAD Oncologic: Reports: Breast - Tobacco Use Smoking Status *Q: Current Every Day Smoker Years of Tobacco use: 32 Packs/Tins Daily: 1 - Caffeine Use Caffeine Use: Reports: Coffee, Soda - Recreational Drug Use Recreational Drug Use: Yes Drug Use in Last 12 Months: No Recreational Drug Type: Reports: Marijuana/Hashish (last smoked 2016), Methamphetamine (last snorted 2016) - Living Situation & Occupation Living situation: Reports: , with Significant Other (Boyfriend) Occupation: Unemployed H&P Review of Systems - Review of Systems: Review Of Systems: See Below General: Reports: No Symptoms HEENT: Reports: No Symptoms Pulmonary: Reports: No Symptoms Cardiovascular: Reports: No Symptoms Gastrointestinal: Reports: Abdominal Pain, Constipation, Nausea Genitourinary: Reports: No Symptoms Musculoskeletal: Reports: No Symptoms Skin: Reports: No Symptoms Psychiatric: Reports: No Symptoms Neurological: Reports: No Symptoms Hematologic/Lymphatic: Reports: No Symptoms Immunologic: Reports: No Symptoms Exam - Exam Exam: See Below - Vital Signs Vital Signs: Last Vital Signs Temp 37.1 C 08/14/19 17:44 Pulse 86 08/14/19 17:44 Resp 20 08/14/19 17:44 BP 116/73 08/14/19 17:44 Pulse Ox 100 08/14/19 17:44 Weight: 49.895 kg - Exam General: Alert, Oriented, Cooperative HEENT: Conjunctiva Clear, Other (nearly edentulous with upper dentures) Neck: Supple Lungs: Clear to Auscultation, Normal Respiratory Effort Cardiovascular: Regular Rate GI/Abdominal Exam: Soft, Non-Tender, No Distention, Mass (Female) Exam: Deferred Rectal (Female) Exam: Deferred Back Exam: Normal Inspection Extremities: Normal Inspection Peripheral Pulses: 2+: Radial (L), Radial (R) Skin: Warm, Dry, Intact, Other (extensive tattoos) Neurological: Strength Equal Bilateral, Normal Gait Neuro Extensive - Mental Status: Alert, Oriented x3, Normal Mood/Affect Psychiatric: Alert, Normal Affect, Normal Mood - Patient Data Lab Results Last 24 hrs: Laboratory Results - last 24 hr 08/14/19 08/14/19 08/14/19 Range/Units 18:05 18:05 18:05 WBC 19.34 H (3.98-10.04) K/mm3 RBC 4.57 (3.98-5.22) M/mm3 Hgb 13.4 (11.2-15.7) gm/dl Hct 39.5 (34.1-44.9) % MCV 86.4 (79.4-94.8) fl MCH 29.3 (25.6-32.2) pg MCHC 33.9 (32.2-35.5) g/dl RDW Std Deviation 39.9 (36.4-46.3) fL Plt Count 475 H (182-369) K/mm3 MPV 9.3 L (9.4-12.3) fl Neut % (Auto) 81.7 H (34.0-71.1) % Lymph % (Auto) 12.0 L (19.3-51.7) % [place] % (Auto) 5.7 (4.7-12.5) % Eos % (Auto) 0.2 L (0.7-5.8) Baso % (Auto) 0.2 (0.1-1.2) % Neut # (Auto) 15.79 H (1.56-6.13) K/mm3 Lymph # (Auto) 2.33 (1.18-3.74) K/mm3 [place] # (Auto) 1.11 H (0.24-0.36) K/mm3 Eos # (Auto) 0.04 (0.04-0.36) K/mm3 Baso # (Auto) 0.03 (0.01-0.08) K/mm3 Manual Slide Review Abnormal smear Sodium 140 (136-145) mEq/L Potassium 3.5 (3.5-5.1) mEq/L Chloride 100 (98-107) mEq/L Carbon Dioxide 26 (21-32) mEq/L Anion Gap 17.5 H (5-15) BUN 10 (7-18) mg/dL Creatinine 0.7 (0.55-1.02) mg/dL Est Cr Clr Drug Dosing 72.37 mL/min Estimated GFR (MDRD) > 60 (>60) mL/min BUN/Creatinine Ratio 14.3 (14-18) Glucose 104 (74-106) mg/dL Calcium 9.2 (8.5-10.1) mg/dL Total Bilirubin 0.3 (0.2-1.0) mg/dL GGT 40 (5-55) U/L AST 15 (15-37) U/L ALT 19 (14-59) U/L Alkaline Phosphatase 101 (46-116) U/L C-Reactive Protein 7.8 H* (<1.0) mg/dL Total Protein 8.1 (6.4-8.2) g/dl Albumin 3.3 L (3.4-5.0) g/dl Globulin 4.8 gm/dL Albumin/Globulin Ratio 0.7 L (1-2) Lipase 227 (73-393) U/L Result Diagrams: 08/14/19 18:05 08/14/19 18:05 Sepsis Event Note - Evaluation Sepsis Screening Result: No Definite Risk - Focused Exam Vital Signs: Vital Signs Temp Pulse Resp BP Pulse Ox 08/14/19 17:44 37.1 C 86 20 116/73 100 Date Exam was Performed: 08/15/19 Time Exam was Performed: 09:08 *Q Meaningful Use (ADM) - VTE Risk Assess *Q Each Risk Factor Represents 1 Point: Age 41 - 59 years Total Score 1 Point Risk Factors: 1 Each Risk Factor Represents 2 Points: Malignancy (present or previous) Total Score 2 Point Risk Factors: 2 Problem List Initiated/Reviewed/Updated: Yes Orders Last 24hrs: Active Orders 24 hr Category Date Time Status Patient Status [ADT] Routine ADT 08/14/19 23:59 Ordered Activity as Tolerated [RC] .Routine Care 08/14/19 23:59 Ordered Antiembolic Devices [RC] PER UNIT ROUTINE Care 08/15/19 00:00 Ordered Oxygen Therapy [RC] PRN Care 08/14/19 23:59 Ordered Peripheral IV Care [RC] . DIRECTED Care 08/14/19 17:58 Active RT Incentive Spirometry [RC] Q1HWA Care 08/14/19 23:59 Ordered Vital Signs [RC] Q8H Care 08/14/19 23:59 Ordered Nothing Per Oral Diet [DIET] Diet 08/15/19 Breakfast Ordered Abdomen Pelvis w Cont [CT] Stat Exams 08/14/19 21:58 Taken HIDA with EF [Cholescintigraphy w Pharm Int] [NM] Exams 08/15/19 07:00 Ordered Routine AFP, SERUM, TUMOR MARKER [REF] Routine Lab 08/15/19 07:00 Ordered BILIRUBIN DIRECT [CHEM] Routine Lab 08/15/19 07:00 Ordered CA 19-9 [REF] Routine Lab 08/15/19 07:00 Ordered CBC WITH AUTO DIFF [HEME] Routine Lab 08/15/19 07:00 Ordered CEA [REF] Routine Lab 08/15/19 07:00 Ordered CMP [COMPREHENSIVE METABOLIC PN,CMP] [CHEM] Timed Lab 08/15/19 07:00 Ordered LACTATE DEHYDROGENASE,LDH [CHEM] Routine Lab 08/15/19 07:00 Ordered Heparin Sodium Med 08/14/19 23:45 Ordered 5,000 units SUBCUT Q8H Lactated Ringers @ 100 MLS/HR(1000ml Bag) Med 08/14/19 23:45 Ordered Lactated Ringers [Ringers, Lactated] 1,000 ml IV ASDIRECTED Sertraline [Zoloft] Med 08/15/19 09:00 Ordered 25 mg PO DAILY Sodium Chloride 0.9% [Saline Flush] Med 08/14/19 17:57 Active 10 ml FLUSH ASDIRECTED PRN carBAMazepine [TEGretol Tab] Med 08/15/19 09:00 Ordered 200 mg PO BID traZODone HCl [Trazodone HCl] Med 08/15/19 21:00 Ordered 150 mg PO BEDTIME Peripheral IV Insertion Adult [OM.PC] Stat Oth 08/14/19 17:57 Ordered Sequential Compression Device [OM.PC] Routine Oth 08/14/19 23:59 Ordered Resuscitation Status Routine Resus Stat 08/14/19 23:58 Ordered Medication Orders Carbamazepine (Tegretol Tab) 200 mg PO BID IVONNE Heparin Sodium (Porcine) (Heparin Sodium) 5,000 units SUBCUT Q8H IVONNE Lactated Ringer's (Ringers, Lactated) 1,000 mls @ 100 mls/hr IV ASDIRECTED IVONNE Non-Formulary Medication (Trazodone Hcl [Trazodone Hcl]) 150 mg PO BEDTIME IVONNE Sertraline HCl (Zoloft) 25 mg PO DAILY IVONNE Sodium Chloride (Saline Flush) 10 ml FLUSH ASDIRECTED PRN PRN Reason: Keep Vein Open Last Admin: 08/14/19 18:12 Dose: 10 ml Assessment/Plan Comment:: Question of acalculous cholecystitis in patient with history of Hepatitis C and findings on CT scan worrisome for metastatic disease in liver and changes in distal common bile duct suggestive of cholangiocarcinoma. At this time however, VSS and abdominal pain completely resolved. HIDA scan ordered, will be done tomorrow to determine if there is any gallbladder activity. This will guide the decision to do any intervention regarding treatment of cholecystitis. However, the patient warrants further investigation of her liver and biliary abnormalities and will likely need referral to a medical center with advanced GI capabilities including ERCP.
[2019-08-15] MEDS ORDERED: Ibuprofen 400 MG Tab PO ONE (00:43)
[2019-08-15] MEDS: Heparin Sodium 5,000 Units/ML Vial SUBCUT SCH ×3 (00:46→15:58)
[2019-08-15] MEDS: Sertraline 25 MG Tab PO SCH (08:09)
[2019-08-15] MEDS: carBAMazepine 200 MG Tab PO SCH ×2 (08:09→20:18)
[2019-08-15] MEDS: Ibuprofen 400 MG Tab PO PRN ×2 (09:33→20:18)
[2019-08-15] MEDS ORDERED: Ondansetron 4 MG Tab.DIS PO PRN (09:36)
--- NOTE | 2019-08-15 11:49 | CT ---
CT abdomen and pelvis Technique: Multiple axial sections were obtained from above the dome of the diaphragm inferiorly through the pubic symphysis. Intravenous and oral contrast was given. Delayed images were also obtained through the abdomen and pelvis. Comparison: Previous right upper quadrant abdominal ultrasound performed earlier on the same day (8:50 PM). Findings: Gallbladder is dilated with slight gallbladder wall thickening. Soft tissue density is seen within the distal CBD which measures 8.9 mm. Uncertain if this is due to soft tissue mass or represents a noncalcified gallstone. Mild intrahepatic and extrahepatic biliary duct dilatation is seen. 2 nodules are identified within the right lung base as well as 2 nodules within the left lung base. Emphysematous change is also noted within both lungs. Small pleural based nodule is also noted within the left lung base. Nodules all measure less than 1 cm in size. Abnormality is noted within the liver showing circumferential enhancement. This finding measures roughly 2.7 cm in size when including measurement of the enhancing component. This could be a metastatic lesion as the findings do not appear to represent definite hemangioma at this time. No additional abnormality is seen within the liver. Spleen appears normal. Adrenal glands show no nodule. Kidneys show symmetric contrast enhancement. 1.1 cm lesion within the right kidney. This does not clearly represent a cyst and could be a solid lesion. Adrenal glands show no nodule. Pancreas appears within normal limits. Aorta shows no aneurysm with atherosclerotic change being seen. No retroperitoneal adenopathy is seen at this time. No mesenteric abnormalities are appreciated. No pelvic mass or adenopathy is seen. No free fluid or inflammatory change is noted. Delayed images shows contrast within both ureters without evidence of ureteral obstruction. Contrast is also noted within the bladder. Appendix not visualized with certainty. Bone window settings were reviewed which shows minimal degenerative change within the lower thoracic spine. No acute osseous finding is seen. Impression: 1. Dilated gallbladder with gallbladder wall thickening. Soft tissue density within the distal CBD either due to soft tissue mass or noncalcified gallstone. 2. Lesion within the right kidney which is not clearly a cyst measuring 1.1 cm. Renal mass not excluded at this time. 3. 2.7 cm lesion within the right lobe of the liver showing peripheral enhancement. As mentioned above, this does not clearly represent a hemangioma and could represent a metastatic lesion. 4. Small nodules within both lung bases which are nonspecific but given the above findings, difficult to exclude early pulmonary metastatic disease. Diagnostic code #9 This report was dictated in [place] Standard Time I agree with preliminary report issued by [facility], additional renal finding as noted above ([facility] report finalized on 08/15/19, 12:55 AM Central Time.
[2019-08-15] MEDS: traZODone 50 MG Tab PO SCH (20:18)
[2019-08-16] MEDS: Ibuprofen 400 MG Tab PO PRN ×2 (04:49→13:28)
[2019-08-16] MEDS: Heparin Sodium 5,000 Units/ML Vial SUBCUT SCH ×3 (05:34→15:22)
[2019-08-16] MEDS: carBAMazepine 200 MG Tab PO SCH ×2 (08:10→21:11)
[2019-08-16] MEDS: Sertraline 25 MG Tab PO SCH (08:10)
[2019-08-16] MEDS ORDERED: Lactated Ringers 1,000 ML IV SCH (09:15)
--- NOTE | 2019-08-16 09:23 | PCM.SN ---
- Free Text/Narrative Note: S: HD 2 admitted for RUQ pain and abnormal hepatobiliary findings on CT imaging raising suspicion for cholangiocarcinoma and hepatic metastasis as well as acalculous cholecystitis. WBC down from 19 to 14, symptoms resolved. HIDA scan later today. 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 HIDA scan will answer the question of active cholecystitis. Regardless, if the patient's symptoms are minimal, I think further diagnostic workup including MRCP vs ERCP is warranted, and cholecystectomy may delay or interfere with future definitive treatment plan. I will await the results and discuss with patient plan of care but I anticipate referral to gastroenterology in the outpatient setting without preceding cholecystectomy if her symptoms continue to be minimal. She has not had antibiotics or narcotic pain medication since admission. Plan for diet after HIDA and likely discharge home later today.
--- NOTE | 2019-08-16 13:35 | NM ---
Biliary HIDA scan with ejection fraction Technique: 2.6 mCi of technetium 99m mebrofenin was given intravenously. Scintigraphic imaging then obtained over the upper abdomen. During the study, 3 ounces of heavy whipping cream and 1 teaspoon of sugar was given and continued scintigraphic imaging was performed. Gallbladder ejection fraction is 0% Comparison: Previous CT abdomen and pelvis study of 08/14/19. Gallbladder is opacified compatible with patent cystic drug. Photopenic area is noted within the right lobe liver which correlates to previous liver mass. Impression: 1. Patent cystic duct with 0% ejection fraction compatible with non-functioning gallbladder. 2. Photopenic liver abnormality correlating to liver mass on previous CT exam. Diagnostic code #3 This report was dictated in [place] Standard Time
[2019-08-16] MEDS ORDERED: oxyCODONE 5 MG Tab PO ONE (13:53)
--- NOTE | 2019-08-16 15:52 | PCM.PREANE ---
Preanesthetic Assessment - Procedure Proposed Procedure: Laparoscopic Cholecystectomy - Anesthesia/Transfusion/Family Hx Anesthesia History: Prior Anesthesia Without Reaction Family History of Anesthesia Reaction: No Transfusion History: No Prior Transfusion(s) Intubation History: Unknown - Review of Systems General: No Symptoms Pulmonary: No Symptoms (COPD: smoker-1 ppd times 32 years/ Last used marijuana 2016, last used methamphetamines 2016 ETOH 2016) Cardiovascular: No Symptoms, Dyspnea on Exertion Gastrointestinal: No Symptoms (History of GERD), Abdominal Pain (08/31), Decreased Appetite, Nausea Neurological: No Symptoms (Scoliosis), Headache (History of migraines), Seizure (currently on tegretol/May 2019) Other: Reports: Liver Problems (History of Hepatitis C), Depression, Anxiety ( History of suicidal attempt) - Physical Assessment NPO Status Date: 08/16/19 NPO Status Time: 13:30 Vital Signs: Last Vital Signs Temp 36.4 C 08/16/19 08:08 Pulse 59 L 08/16/19 08:08 Resp 18 08/16/19 08:08 BP 113/93 H 08/16/19 08:08 Pulse Ox 93 L 08/16/19 08:08 Height: 1.6 m Weight: 47.4 kg ASA Class: 3E Mental Status: Alert & Oriented x3 Airway Class: Mallampati = 2 Dentition: Reports: Dentures (upper), Missing Tooth/Teeth (very loose two bottom teeth) Thyro-Mental Finger Breadths: 3 Mouth Opening Finger Breadths: 3 ROM/Head Extension: Full Lungs: Clear to Auscultation, Normal Respiratory Effort, Decreased Breath Sounds Cardiovascular: Regular Rate, Regular Rhythm, No Murmurs - Lab Values: Laboratory Last Values WBC 15.86 K/mm3 (3.98-10.04) H 08/16/19 14:35 RBC 4.53 M/mm3 (3.98-5.22) 08/16/19 14:35 Hgb 13.1 gm/dl (11.2-15.7) 08/16/19 14:35 Hct 39.6 % (34.1-44.9) 08/16/19 14:35 MCV 87.4 fl (79.4-94.8) 08/16/19 14:35 MCH 28.9 pg (25.6-32.2) 08/16/19 14:35 MCHC 33.1 g/dl (32.2-35.5) 08/16/19 14:35 RDW Std Deviation 40.4 fL (36.4-46.3) 08/16/19 14:35 Plt Count 463 K/mm3 (182-369) H 08/16/19 14:35 MPV 9.5 fl (9.4-12.3) 08/16/19 14:35 Neut % (Auto) 85.1 % (34.0-71.1) H 08/16/19 14:35 Lymph % (Auto) 8.6 % (19.3-51.7) L 08/16/19 14:35 Campbell % (Auto) 5.7 % (4.7-12.5) 08/16/19 14:35 Eos % (Auto) 0.2 (0.7-5.8) L 08/16/19 14:35 Baso % (Auto) 0.2 % (0.1-1.2) 08/16/19 14:35 Neut # (Auto) 13.50 K/mm3 (1.56-6.13) H 08/16/19 14:35 Lymph # (Auto) 1.37 K/mm3 (1.18-3.74) 08/16/19 14:35 Campbell # (Auto) 0.90 K/mm3 (0.24-0.36) H 08/16/19 14:35 Eos # (Auto) 0.03 K/mm3 (0.04-0.36) L 08/16/19 14:35 Baso # (Auto) 0.03 K/mm3 (0.01-0.08) 08/16/19 14:35 Manual Slide Review Abnormal smear 08/16/19 14:35 Sodium 141 mEq/L (136-145) 08/16/19 14:35 Potassium 3.7 mEq/L (3.5-5.1) 08/16/19 14:35 Chloride 102 mEq/L (98-107) 08/16/19 14:35 Carbon Dioxide 28 mEq/L (21-32) 08/16/19 14:35 Anion Gap 14.7 (5-15) 08/16/19 14:35 BUN 14 mg/dL (7-18) 08/16/19 14:35 Creatinine 0.7 mg/dL (0.55-1.02) 08/16/19 14:35 Est Cr Clr Drug Dosing 68.75 mL/min 08/16/19 14:35 Estimated GFR (MDRD) > 60 mL/min (>60) 08/16/19 14:35 BUN/Creatinine Ratio 20.0 (14-18) H 08/16/19 14:35 Glucose 93 mg/dL (74-106) 08/16/19 14:35 Calcium 8.7 mg/dL (8.5-10.1) 08/16/19 14:35 Total Bilirubin 0.5 mg/dL (0.2-1.0) 08/16/19 14:35 Direct Bilirubin 0.10 mg/dl (0.0-0.2) 08/15/19 09:00 GGT 40 U/L (5-55) 08/14/19 18:05 AST 45 U/L (15-37) H 08/16/19 14:35 ALT 50 U/L (14-59) 08/16/19 14:35 Alkaline Phosphatase 115 U/L (46-116) 08/16/19 14:35 Lactate Dehydrogenase 164 U/L (81-234) 08/15/19 09:00 C-Reactive Protein 7.8 mg/dL (<1.0) H* 08/14/19 18:05 Total Protein 7.8 g/dl (6.4-8.2) 08/16/19 14:35 Albumin 3.0 g/dl (3.4-5.0) L 08/16/19 14:35 Globulin 4.8 gm/dL 08/16/19 14:35 Albumin/Globulin Ratio 0.6 (1-2) L 08/16/19 14:35 Lipase 227 U/L (73-393) 08/14/19 18:05 All labs reviewed and noted and within acceptable ranges to proceed with scheduled procedure. - Allergies Allergies/Adverse Reactions: Allergies Allergy/AdvReac Type Severity Reaction Status Date / Time ketorolac [From Toradol] Allergy Vomiting Verified 08/15/19 00:26 - Anesthesia Plan Pre-Op Medication Ordered: None - Acknowledgements Anesthesia Type Planned: General Anesthesia Pt an Appropriate Candidate for the Planned Anesthesia: Yes Alternatives and Risks of Anesthesia Discussed w Pt/Guardian: Yes Pt/Guardian Understands and Agrees with Anesthesia Plan: Yes PreAnesthesia Questionnaire HEENT History: Reports: Impaired Vision Respiratory History: Reports: COPD Gastrointestinal History: Reports: Hepatitis Other Gastrointestinal History: "cured for hepatitis C" Genitourinary History: Reports: UTI, 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 - Infectious Disease History Infectious Disease History: Reports: Hepatitis C Other Infectious Disease History: had treatment and now is clear since November. - Past Surgical History HEENT Surgical History: Reports: Oral Surgery GI Surgical History: Reports: Appendectomy Female Surgical History: Reports: Hysterectomy - SUBSTANCE USE Smoking Status *Q: Current Every Day Smoker Tobacco Use Within Last Twelve Months: Cigarettes Recreational Drug Use History: No Recreational Drug Type: Reports: Marijuana/Hashish (last smoked 2016), Methamphetamine (last snorted 2016) - HOME MEDS Home Medications: Home Meds traZODone HCl [Trazodone HCl] 150 mg PO BEDTIME 05/19/18 [History] Sertraline [Zoloft] 25 mg PO DAILY 08/14/19 [History] carBAMazepine [Carbamazepine] 100 mg PO BID 08/14/19 [History] - CURRENT (IN HOUSE) MEDS Current Meds: Current Medications Carbamazepine (Tegretol Tab) 200 mg PO BID [facility] Last Admin: 08/16/19 08:10 Dose: 200 mg Heparin Sodium (Porcine) (Heparin Sodium) 5,000 units SUBCUT Q8H [facility] Last Admin: 08/16/19 15:22 Dose: 5,000 units Lactated Ringer's (Ringers, Lactated) 1,000 mls @ 100 mls/hr IV ASDIRECTED [facility] Last Admin: 08/16/19 13:30 Dose: 100 mls/hr Piperacillin Sod/Tazobactam (Sod 4.5 gm/ Sodium Chloride) 100 mls @ 25 mls/hr IV Q8H [facility] Piperacillin Sod/Tazobactam (Sod 4.5 gm/ Sodium Chloride) 100 mls @ 200 mls/hr IV ONETIME ONE Stop: 08/16/19 16:29 Last Admin: 08/16/19 15:34 Dose: 200 mls/hr Ibuprofen (Motrin) 400 mg PO Q8H PRN PRN Reason: Headache Last Admin: 08/16/19 13:28 Dose: 400 mg Ondansetron HCl (Zofran Odt) 4 mg PO Q8H PRN PRN Reason: Nausea/Vomiting Last Admin: 08/15/19 09:42 Dose: 4 mg Sertraline HCl (Zoloft) 25 mg PO DAILY [facility] Last Admin: 08/16/19 08:10 Dose: 25 mg Sodium Chloride (Saline Flush) 10 ml FLUSH ASDIRECTED PRN PRN Reason: Keep Vein Open Last Admin: 08/14/19 18:12 Dose: 10 ml Trazodone HCl (Trazodone) 150 mg PO BEDTIME [facility] Last Admin: 08/15/19 20:18 Dose: 150 mg Discontinued Medications Hydromorphone HCl (Dilaudid) 0.5 mg IVPUSH ONETIME ONE Stop: 08/14/19 17:58 Last Admin: 08/14/19 18:06 Dose: 0.5 mg Hydromorphone HCl (Dilaudid) 0.5 mg IVPUSH ONETIME ONE Stop: 08/14/19 19:02 Last Admin: 08/14/19 19:14 Dose: 0.5 mg Lactated Ringer's (Ringers, Lactated) 1,000 mls @ 100 mls/hr IV ASDIRECTED [facility] Last Admin: 08/15/19 00:46 Dose: 100 mls/hr Ibuprofen (Motrin) 400 mg PO ONETIME ONE Stop: 08/15/19 00:44 Last Admin: 08/15/19 00:56 Dose: 400 mg Ondansetron HCl (Zofran) 4 mg IVPUSH ONETIME ONE Stop: 08/14/19 17:58 Last Admin: 08/14/19 18:08 Dose: 4 mg Oxycodone HCl (Oxycodone) 5 mg PO ONETIME ONE Stop: 08/16/19 13:54 Last Admin: 08/16/19 14:19 Dose: 5 mg
[2019-08-16] MEDS ORDERED: Bupivacaine 0.5%/EPINEPHrine 1:200,000 50 ML MDV ONE (15:59)
[2019-08-16] MEDS ORDERED: Piperacillin/Tazobactam 4.5 GM in Sodium Chloride 0.9% 100 ML IV ONE (16:00)
[2019-08-16] MEDS ORDERED: Albuterol 0.083% 2.5 MG/3 ML Neb Soln NEB ONE (16:00)
[2019-08-16] MEDS ORDERED: Rocuronium 100 MG/10 ML MDV ONE (16:29)
[2019-08-16] MEDS ORDERED: Ondansetron 4 MG/2 ML SDV ONE (16:29)
[2019-08-16] MEDS ORDERED: Dexamethasone 4 MG/ML 5 ML MDV ONE (16:29)
[2019-08-16] MEDS ORDERED: Lactated Ringers 2,000 ML ONE (16:29)
[2019-08-16] MEDS ORDERED: Lidocaine 1% 6 ML ONE (16:29)
[2019-08-16] MEDS ORDERED: Propofol 200 MG/20 ML SDV ONE (16:30)
[2019-08-16] MEDS ORDERED: Midazolam 1 MG/ML 2 ML SDV ONE (16:30)
[2019-08-16] MEDS ORDERED: fentaNYL 250 MCG/5 ML SDV ONE (16:30)
[2019-08-16] MEDS ORDERED: Phenylephrine/Normal Saline 100 MCG/ML 10 ML Syringe ONE (16:38)
[2019-08-16] MEDS ORDERED: Neostigmine Methylsulfate 1 MG/ML 5 ML Syringe ONE (16:48)
[2019-08-16] MEDS ORDERED: ePHEDrine 50 MG/ML SDV IVPUSH PRN (16:55)
[2019-08-16] MEDS ORDERED: diphenhydrAMINE 50 MG/ML SDV IVPUSH PRN (16:55)
[2019-08-16] MEDS ORDERED: HYDROmorphone 0.5 MG/0.5 ML Syringe IVPUSH PRN (16:55)
[2019-08-16] MEDS ORDERED: Albuterol 0.083% 2.5 MG/3 ML Neb Soln NEB PRN (16:55)
[2019-08-16] MEDS ORDERED: fentaNYL 100 MCG/2 ML SDV IVPUSH PRN (16:55)
[2019-08-16] MEDS ORDERED: Labetalol 100 MG/20 ML MDV ONE (16:57)
[2019-08-16] MEDS ORDERED: Phenylephrine 1 MG in Sodium Chloride 0.9% 10 ML IV SCH (17:00)
--- NOTE | 2019-08-16 17:54 | PCM.PRNOTE ---
- Free Text/Narrative Note: Operative Report Operation: laparoscopic cholecystectomy Date: 08/16/2019 Attending Surgeon: Macho Garrison MD Indication for Surgery:symptomatic acalculous cholecystitis Preoperative antibiotics: 4.5 g zosyn IV VTE prophylaxis: Heparin 5000 u SC, SCDs Estimated Blood Loss: 10 cc Findings: enlarged, chronically inflamed and edematous gallbladder. nearly 150 cc dark green bilious material aspirated from gallbladder. Calot node removed with specimen and sent for pathology. Liver appeared somewhat fibrotic. No obvious lesions suggestive of malignancy. Critical view was obtained. Detailed Report: The patient underwent general endotracheal anesthesia after being placed supine on the operating table and initial timeout. The abdomen was prepped and draped in sterile fashion. A pre-incision timeout was performed confirming the patient s identity and the operation to be performed. A Veress needle was inserted into the abdominal cavity below the left costal margin along the mid-clavicular line. The abdomen was insufflated with CO2 to 15 mm Hg. Gas was aspirated below the umbilicus with a syringe in order to ensure safe placement of a 5 mm bladed laparoscopic port. The 5mm 30 degree laparoscope was then inserted and viscera inspected. The gallbladder appeared very large and edematous. Two additional 5 mm ports were placed along the right subcostal region under direct vision with the laparoscope, and a 12 mm port was placed at the subxiphoid region. The gallbladder was decompressed with the laparoscopic hollow needle on a 60 cc syringe, and nearly 150 cc of bilious fluid was aspirated. The gallbladder was grasped at the fundus with a locking grasper and retracted anteriorly and superiorly, exposing the infundibulum. This was grasped with the surgeons left hand grasper and retracted laterally. The hook electrode was used to open the overlying peritoneum, and this plane of dissection was developed along the edges of the gallbladder at its interface with the liver bed. A combination of hook electrode, blunt dissection with the suction drop forger helper and the [place] grasper were used to carefully expose and skeletonize the cystic duct. Calot's node was dissected free and removed for pathology. A critical view of safety was obtained. Hemolock clips were then placed on the cystic duct; two on the stay side and one each on the specimen side. The duct was transected with laparoscopic scissors. The cystic artery was diminuitive and the arterial supply was divided with the hook electrode distal to the node. The hook was then used to dissect the gallbladder free from its attachment to the liver. The specimen was then placed in an Endocatch bag and removed through the subxiphoid port. The liver bed was irrigated and suctioned and appeared hemostatic. The larger subxiphoid port was closed at the level of the fascia with vicryl suture using the PMI laparoscopic suture passer. Pneumoperitoneum was then released. All skin incisions were then closed with placement of subcuticular vicryl suture and dressed with dermabond. A total of 20 cc 0.5% marcaine with epinephrine was used for local anesthesia at the incision sites. The patient tolerated the operation well, was extubated in the operating room and transferred to the PACU for routine post-anesthesia care. Macho Garrison MD General Surgery
--- NOTE | 2019-08-16 18:11 | PCM.POSTAN ---
POST ANESTHESIA ASSESSMENT - MENTAL STATUS Mental Status: Alert - VITAL SIGNS Vital Signs: Last Vital Signs Temp 98.8f 08/16/19 1745 Pulse 79 08/16/19 1745 Resp 17 08/16/19 1745 BP 143/68 08/16/19 1745 Pulse Ox 79 08/16/19 1745 - RESPIRATORY Respiratory Status: Respiratory Rate WNL, Airway Patent, O2 Saturation Stable - CARDIOVASCULAR CV Status: Pulse Rate WNL, Blood Pressure Stable - GASTROINTESTINAL GI Status: No Symptoms - POST OP HYDRATION Hydration Status: Adequate & Stable
[2019-08-16] MEDS: Acetaminophen 325 MG Tab PO SCH (19:34)
[2019-08-16] MEDS: traZODone 50 MG Tab PO SCH (21:10)
[2019-08-17] MEDS: Piperacillin/Tazobactam 4.5 GM in Sodium Chloride 0.9% 100 ML IV SCH ×2 (00:52→07:53)
[2019-08-17] MEDS: Acetaminophen 325 MG Tab PO SCH ×3 (00:53→12:07)
[2019-08-17] MEDS: Heparin Sodium 5,000 Units/ML Vial SUBCUT SCH ×2 (00:53→07:58)
[2019-08-17] MEDS: oxyCODONE 5 MG Tab PO PRN ×2 (04:47→09:55)
--- NOTE | 2019-08-17 07:49 | PCM48HPAN ---
Post Anesthesia Note - EVALUATION WITHIN 48HRS OF ANESTHETIC Vital Signs in Normal Range: Yes Patient Participated in Evaluation: Yes Respiratory Function Stable: Yes Airway Patent: Yes Cardiovascular Function Stable: Yes Hydration Status Stable: Yes Pain Control Satisfactory: Yes Nausea and Vomiting Control Satisfactory: Yes Mental Status Recovered: Yes Vital Signs: Last Vital Signs Temp 36.6 C 08/17/19 04:49 Pulse 54 L 08/17/19 04:49 Resp 16 08/17/19 04:49 BP 112/48 L 08/17/19 04:49 Pulse Ox 98 08/17/19 04:49 - COMMENTS/OBSERVATIONS Free Text/Narrative:: no anesthesia complications noted
[2019-08-17] MEDS: carBAMazepine 200 MG Tab PO SCH (07:59)
[2019-08-17] MEDS: Sertraline 25 MG Tab PO SCH (07:59)
--- NOTE | 2019-08-17 09:31 | PCM.DCSUM1 ---
Discharge Summary - Hospital Course Free Text/Narrative:: Mrs. Collins was admitted from the emergency department with abdominal pain, WBC 19,000 and imaging suggestive of acalculous cholecystitis as well as a right hepatic lobe lesion suspicious for metastasis and distal common bile duct abnormality suggesting possible cholangiocarcinoma. She has a history of Hepatitis C in remission for the past few years. Her symptoms resolved and WBC came down spontaneously, and a HIDA scan was ordered to assess for cholecystitis. The HIDA showed flow of tracer into the gallbladder but 0% gallbladder activity. The patient's symptoms returned and her WBC went from about 14,000 to 16,000 so laparoscopic cholecystectomy was performed. The gallbladder was markedly enlarged and edematous. No intraperitoneal lesions suggestive of cancer were observed at the time. She did well postoperatively. - Discharge Data Discharge Date: 08/17/19 Discharge Disposition: Home, Self-Care 01 Condition: Good - Referral to Home Health Primary Care Physician: Ping Tamez MD - Patient Summary/Data Operative Procedure(s) Performed: laparoscopic cholecystectomy Recommended Follow-up Testing/Procedures: MRCP vs ERCP for evaluation of distal common bile duct abnormality seen on CT scan, possible IR biopsy of suspicious liver lesion. - Patient Instructions Diet: Regular Diet as Tolerated Activity: As Tolerated Showering/Bathing: May Shower Wound/Incision Care: Keep Operative Site/Wound Site Clean and Dry Notify Provider of: Fever, Increased Pain - Discharge Plan *PRESCRIPTION DRUG MONITORING PROGRAM REVIEWED*: Not Applicable *COPY OF PRESCRIPTION DRUG MONITORING REPORT IN PATIENT RUFINO: Not Applicable Prescriptions/Med Rec: oxyCODONE 5 mg PO Q4H PRN #15 tab PRN Reason: Pain Home Medications: Home Meds traZODone HCl [Trazodone HCl] 150 mg PO BEDTIME 05/19/18 [History] Sertraline [Zoloft] 25 mg PO DAILY 08/14/19 [History] carBAMazepine [Carbamazepine] 100 mg PO BID 08/14/19 [History] oxyCODONE 5 mg PO Q4H PRN #15 tab 08/17/19 [Rx] Patient Handouts: Cholecystitis, [id number], Steps to Quit Smoking Forms: ED Department Discharge Referrals: Ping Tamez MD [Primary Care Provider] - Macho Garrison MD [Physician] - - Discharge Summary/Plan Comment DC Time >30 min.: No - Patient Data Vitals - Most Recent: Last Vital Signs Temp 36.6 C 08/17/19 09:02 Pulse 68 08/17/19 09:02 Resp 16 08/17/19 09:02 BP 131/56 L 08/17/19 09:02 Pulse Ox 99 08/17/19 09:02 Weight - Most Recent: 48.534 kg I&O - Last 24 hours: Intake & Output 08/16/19 08/17/19 08/17/19 22:59 06:59 14:59 Intake Total 470 1300 Output Total 500 300 Balance -30 1000 Lab Results - Last 24 hrs: Laboratory Results - last 24 hr 08/15/19 08/16/19 08/16/19 Range/Units 09:00 14:35 14:35 WBC 15.86 H (3.98-10.04) K/mm3 RBC 4.53 (3.98-5.22) M/mm3 Hgb 13.1 (11.2-15.7) gm/dl Hct 39.6 (34.1-44.9) % MCV 87.4 (79.4-94.8) fl MCH 28.9 (25.6-32.2) pg MCHC 33.1 (32.2-35.5) g/dl RDW Std Deviation 40.4 (36.4-46.3) fL Plt Count 463 H (182-369) K/mm3 MPV 9.5 (9.4-12.3) fl Neut % (Auto) 85.1 H (34.0-71.1) % Lymph % (Auto) 8.6 L (19.3-51.7) % [place] % (Auto) 5.7 (4.7-12.5) % Eos % (Auto) 0.2 L (0.7-5.8) Baso % (Auto) 0.2 (0.1-1.2) % Neut # (Auto) 13.50 H (1.56-6.13) K/mm3 Lymph # (Auto) 1.37 (1.18-3.74) K/mm3 [place] # (Auto) 0.90 H (0.24-0.36) K/mm3 Eos # (Auto) 0.03 L (0.04-0.36) K/mm3 Baso # (Auto) 0.03 (0.01-0.08) K/mm3 Manual Slide Review Abnormal smear Sodium 141 (136-145) mEq/L Potassium 3.7 (3.5-5.1) mEq/L Chloride 102 (98-107) mEq/L Carbon Dioxide 28 (21-32) mEq/L Anion Gap 14.7 (5-15) BUN 14 (7-18) mg/dL Creatinine 0.7 (0.55-1.02) mg/dL Est Cr Clr Drug Dosing 68.75 mL/min Estimated GFR (MDRD) > 60 (>60) mL/min BUN/Creatinine Ratio 20.0 H (14-18) Glucose 93 (74-106) mg/dL Calcium 8.7 (8.5-10.1) mg/dL Total Bilirubin 0.5 (0.2-1.0) mg/dL AST 45 H (15-37) U/L ALT 50 (14-59) U/L Alkaline Phosphatase 115 (46-116) U/L Total Protein 7.8 (6.4-8.2) g/dl Albumin 3.0 L (3.4-5.0) g/dl Globulin 4.8 gm/dL Albumin/Globulin Ratio 0.6 L (1-2) Carcinoembryonic Ag 3.0 (0.0-3.0) ng/mL Med Orders - Current: Current Medications Acetaminophen (Tylenol) 650 mg PO Q6H [facility] Last Admin: 08/17/19 06:22 Dose: 650 mg Carbamazepine (Tegretol Tab) 200 mg PO BID [facility] Last Admin: 08/17/19 07:59 Dose: 200 mg Heparin Sodium (Porcine) (Heparin Sodium) 5,000 units SUBCUT Q8H [facility] Last Admin: 08/17/19 07:58 Dose: 5,000 units Lactated Ringer's (Ringers, Lactated) 1,000 mls @ 100 mls/hr IV ASDIRECTED [facility] Last Admin: 08/16/19 13:30 Dose: 100 mls/hr Piperacillin Sod/Tazobactam (Sod 4.5 gm/ Sodium Chloride) 100 mls @ 25 mls/hr IV Q8H [facility] Last Admin: 08/17/19 07:53 Dose: 25 mls/hr Ibuprofen (Motrin) 400 mg PO Q8H PRN PRN Reason: Headache Last Admin: 08/16/19 13:28 Dose: 400 mg Ondansetron HCl (Zofran Odt) 4 mg PO Q8H PRN PRN Reason: Nausea/Vomiting Last Admin: 08/15/19 09:42 Dose: 4 mg Oxycodone HCl (Oxycodone) 5 mg PO Q4H PRN PRN Reason: Pain (moderate 4-6) Last Admin: 08/17/19 04:47 Dose: 5 mg Sertraline HCl (Zoloft) 25 mg PO DAILY [facility] Last Admin: 08/17/19 07:59 Dose: 25 mg Sodium Chloride (Saline Flush) 10 ml FLUSH ASDIRECTED PRN PRN Reason: Keep Vein Open Last Admin: 08/14/19 18:12 Dose: 10 ml Trazodone HCl (Trazodone) 150 mg PO BEDTIME IVONNE Last Admin: 08/16/19 21:10 Dose: 150 mg Discontinued Medications Albuterol (Proventil Neb Soln) 2.5 mg NEB ONETIME ONE Stop: 08/16/19 16:01 Last Admin: 08/16/19 16:19 Dose: 2.5 mg Albuterol (Proventil Neb Soln) 2.5 mg NEB ONETIME PRN PRN Reason: bronchodilation Stop: 08/16/19 19:00 Bupivacaine HCl/Epinephrine Bitart (Marcaine 0.5%/Epinephrine 1:200,000) Confirm Administered Dose 50 ml .ROUTE .STK-MED ONE Stop: 08/16/19 16:00 Last Admin: 08/16/19 16:49 Dose: 50 ml Dexamethasone (Dexamethasone) Confirm Administered Dose 20 mg .ROUTE .STK-MED ONE Stop: 08/16/19 16:30 Diphenhydramine HCl (Benadryl) 25 mg IVPUSH Q6H PRN PRN Reason: pruritis Stop: 08/16/19 19:00 Ephedrine Sulfate (Ephedrine Sulfate) 5 mg IVPUSH ASDIRECTED PRN PRN Reason: Hypotension Stop: 08/16/19 19:00 Fentanyl (Sublimaze) Confirm Administered Dose 250 mcg .ROUTE .STK-MED ONE Stop: 08/16/19 16:31 Fentanyl (Sublimaze) 50 mcg IVPUSH Q5M PRN PRN Reason: Pain Stop: 08/16/19 19:00 Last Admin: 12/26/19 18:05 Dose: 50 mcg Glycopyrrolate () Confirm Administered Dose 1 mg .ROUTE .STK-MED ONE Stop: 08/16/19 16:49 Hydromorphone HCl (Dilaudid) 0.5 mg IVPUSH ONETIME ONE Stop: 08/14/19 17:58 Last Admin: 08/14/19 18:06 Dose: 0.5 mg Hydromorphone HCl (Dilaudid) 0.5 mg IVPUSH ONETIME ONE Stop: 08/14/19 19:02 Last Admin: 08/14/19 19:14 Dose: 0.5 mg Hydromorphone HCl (Dilaudid) 0.5 mg IVPUSH Q15M PRN PRN Reason: Pain (severe 7-10) Stop: 08/16/19 19:00 Lactated Ringer's (Ringers, Lactated) 1,000 mls @ 100 mls/hr IV ASDIRECTED IVONNE Last Admin: 08/15/19 00:46 Dose: 100 mls/hr Piperacillin Sod/Tazobactam (Sod 4.5 gm/ Sodium Chloride) 100 mls @ 200 mls/hr IV ONETIME ONE Stop: 08/16/19 16:29 Last Admin: 08/16/19 15:34 Dose: 200 mls/hr Lidocaine HCl (Xylocaine-Mpf 1%) Confirm Administered Dose 6 mls @ as directed .ROUTE .STK-MED ONE Stop: 08/16/19 16:30 Lactated Ringer's (Ringers, Lactated) Confirm Administered Dose 2,000 mls @ as directed .ROUTE .STK-MED ONE Stop: 08/16/19 16:30 Phenylephrine HCl 1 mg/ Sodium (Chloride) 10.1 mls @ 1 mls/sec IV TITRATE IVONNE; Protocol Stop: 08/16/19 19:00 Ibuprofen (Motrin) 400 mg PO ONETIME ONE Stop: 08/15/19 00:44 Last Admin: 08/15/19 00:56 Dose: 400 mg Labetalol HCl (Normodyne) Confirm Administered Dose 100 mg .ROUTE .STK-MED ONE Stop: 08/16/19 16:58 Midazolam HCl (Versed 1 Mg/Ml) Confirm Administered Dose 2 mg .ROUTE .STK-MED ONE Stop: 08/16/19 16:31 Neostigmine Methylsulfate (Neostigmine) Confirm Administered Dose 5 mg .ROUTE .STK-MED ONE Stop: 08/16/19 16:49 Ondansetron HCl (Zofran) 4 mg IVPUSH ONETIME ONE Stop: 08/14/19 17:58 Last Admin: 08/14/19 18:08 Dose: 4 mg Ondansetron HCl (Zofran) Confirm Administered Dose 4 mg .ROUTE .STK-MED ONE Stop: 08/16/19 16:30 Oxycodone HCl (Oxycodone) 5 mg PO ONETIME ONE Stop: 08/16/19 13:54 Last Admin: 08/16/19 14:19 Dose: 5 mg Phenylephrine HCl (Phenylephrine In Ns 100 Mcg/Ml) Confirm Administered Dose 1 mg .ROUTE .STK-MED ONE Stop: 08/16/19 16:39 Propofol (Diprivan 20 Ml) Confirm Administered Dose 200 mg .ROUTE .STK-MED ONE Stop: 08/16/19 16:31 Rocuronium [place] (Zemuron) Confirm Administered Dose 100 mg .ROUTE .STK-MED ONE Stop: 08/16/19 16:30
== END 2019-08-17 12:45 | disposition home or self-care (01) ==
LOC: JD.ED 17:28 → JD.MS 23:59
PROVIDERS: ADMIT Surgery; ATTEND Surgery
DX: K81.1 Chronic cholecystitis (principal); J44.9 Chronic obstructive pulmonary disease, unspecified; F41.9 Anxiety disorder, unspecified; F32.9 Major depressive disorder, single episode, unspecified; F17.210 Nicotine dependence, cigarettes, uncomplicated; G43.909 Migraine, unspecified, not intractable, without status migrainosus; Z90.49 Acquired absence of other specified parts of digestive tract; Z88.8 Allergy status to other drugs, medicaments and biological substances; Z79.899 Other long term (current) drug therapy
CPT/HCPCS: 36415; 47562; 74177; 76705; 78227; 80053; 82105; 82248; 82378; 82977; 83615; 83690; 85025; 86140; 86301; 88304; 93005; 94640; A9270; A9537; J1100; J1170; J1644; J2001; J2250; J2370; J2405; J2543; J2704; J2710; J3010; J3490; J7050; J7120; 99284

== ENCOUNTER 2019-08-17 17:38 | Emergency (ER) | payer MEDICAID ==
[2019-08-17] MEDS ORDERED: Simethicone 80 MG Tab.Chew PO ONE (18:08)
[2019-08-17] MEDS ORDERED: HYDROmorphone 0.5 MG/0.5 ML Syringe IM ONE (18:08)
[2019-08-17] MEDS ORDERED: FLU Vacc QS2019-20(6MOS+)/PF 60 MCG/0.5 ML SYRINGE IM ONE (18:15)
--- NOTE | 2019-08-17 19:47 | EDM.PDOC ---
ED HPI GENERAL MEDICAL PROBLEM - General Chief Complaint: Gastrointestinal Problem Stated Complaint: GAS PAINS FOLLOWING SURGERY Time Seen by Provider: 08/17/19 17:56 Source of Information: Reports: Patient, Family, Old Records, RN Notes Reviewed History Limitations: Reports: No Limitations - History of Present Illness INITIAL COMMENTS - FREE TEXT/NARRATIVE: Patient is a 54-year-old female who presents to the ED for the evaluation of abdominal pain and gas pains. Patient notes she had a cholecystectomy done yesterday, and she is now having increased abdominal pain and gas pain. She states she is able to eat and drink okay, but she is not passing gas nor has she had a bowel movement. She did try going to walk around [employer] as well. She has been taking her pain medications as prescribed, and was directed by Dr. Garrison to also take MiraLAX. Patient notes that she did have 3 good meals today. And she has been drinking fluids as well. She has no fevers or chills, nausea or vomiting, her last dose of pain medication was oxycodone 5 mg at 3:30 PM. Right Upper Abdominal Pain Score (Numeric/FACES): 10 - Related Data Allergies Allergy/AdvReac Type Severity Reaction Status Date / Time ketorolac [From Toradol] AdvReac Vomiting Verified 08/17/19 17:59 Home Meds: Home Meds traZODone HCl [Trazodone HCl] 150 mg PO BEDTIME 05/19/18 [History] Sertraline [Zoloft] 25 mg PO DAILY 08/14/19 [History] carBAMazepine [Carbamazepine] 100 mg PO BID 08/14/19 [History] oxyCODONE 5 mg PO Q4H PRN #15 tab 08/17/19 [Rx] Past Medical History HEENT History: Reports: Impaired Vision Respiratory History: Reports: COPD Gastrointestinal History: Reports: Hepatitis Other Gastrointestinal History: "cured for hepatitis C" Genitourinary History: Reports: UTI, Recurrent [employer]IN History: Reports: Other [employer] History: partial hysterectomy Musculoskeletal History: Reports: RA Other Musculoskeletal History: bone on bone on both knees, and scolerosis of the spine Neurological History: Reports: Migraines, Seizure Psychiatric History: Reports: Anxiety, Depression, Suicide Attempt Other Immunologic History: Hep C- cured? - Infectious Disease History Infectious Disease History: Reports: Hepatitis C Other Infectious Disease History: had treatment and now is clear since November. - Past Surgical History HEENT Surgical History: Reports: Oral Surgery GI Surgical History: Reports: Appendectomy, Cholecystectomy Female Surgical History: Reports: Hysterectomy Social & Family History - Family History Family Medical History: Noncontributory Cardiac: Reports: CAD Oncologic: Reports: Breast - Tobacco Use Smoking Status *Q: Current Every Day Smoker Years of Tobacco use: 2 Packs/Tins Daily: 1 - Caffeine Use Caffeine Use: Reports: Coffee, Soda Other Caffeine Use: 2-3 coffee/day. 2 soda/day - Recreational Drug Use Recreational Drug Use: No - Living Situation & Occupation Living situation: Reports: , with Family (Daughter, her 2 kids, and her boyfriend) Occupation: Disabled ED ROS GENERAL - Review of Systems Review Of Systems: See Below Constitutional: Denies: Fever, Chills Respiratory: Reports: Shortness of Breath (d/t abd pain, hurts to take deep breath) Cardiovascular: Denies: Chest Pain GI/Abdominal: Reports: Abdominal Pain (generalized), Constipation. Denies: Flatus, Nausea, Vomiting : Denies: Dysuria, Frequency, Urgency ED EXAM, GI/ABD - Physical Exam Exam: See Below Exam Limited By: No Limitations General Appearance: Alert, WD/WN, No Apparent Distress Respiratory/Chest: No Respiratory Distress, Lungs Clear, Normal Breath Sounds, No Accessory Muscle Use, Chest Non-Tender Cardiovascular: Normal Peripheral Pulses, Regular Rate, Rhythm, No Murmur GI/Abdominal Exam: Soft, No Distention, Tender (entire abdomen is generally sore to touch), Abnormal Bowel Sounds (hypoactive bowel tones). No: Rigid, Rebound Extremities: Normal Inspection, Normal Capillary Refill Neurological: Alert, Oriented, Normal Cognition, No Motor/Sensory Deficits Psychiatric: Normal Affect, Normal Mood Skin Exam: Warm, Dry, Intact, Normal Color, No Rash Course - Vital Signs Last Recorded V/S: Last Vital Signs Temp 98.6 F 08/17/19 17:58 Pulse 74 08/17/19 17:58 Resp 20 08/17/19 17:58 BP 140/68 08/17/19 17:58 Pulse Ox 99 08/17/19 17:58 - Orders/Labs/Meds Orders: Active Orders 24 hr Category Date Time Status Influenza Vaccine Charge [RC] .DISCHARGE Care 08/17/19 18:03 Active Chest 2V [CR] Stat Exams 08/17/19 20:40 Taken KUB [Abdomen 1V Flat] [CR] Stat Exams 08/17/19 18:09 Taken Labs: Laboratory Tests 08/17/19 Range/Units 18:36 Urine Color Yellow (Yellow) Urine Appearance Clear (Clear) Urine pH 7.0 (5.0-8.0) Ur Specific [place] 1.020 (1.005-1.030) Urine Protein Negative (Negative) Urine Glucose (UA) Negative (Negative) Urine Ketones Negative (Negative) Urine Occult Blood Trace-intact H (Negative) Urine Nitrite Negative (Negative) Urine Bilirubin Negative (Negative) Urine Urobilinogen 0.2 (0.2-1.0) Ur Leukocyte Esterase Negative (Negative) Urine RBC 0-5 (0-5) /hpf Urine WBC 0-5 (0-5) /hpf Ur Squamous Epith Cells 5-10 H (0-5) /hpf Urine Bacteria Few (FEW) /hpf Urine Mucus Few (FEW) /hpf Meds: Medications Discontinued Medications Generic Name Dose Route Start Last Admin Trade Name Freq PRN Reason Stop Dose Admin Hydromorphone HCl 0.5 mg 08/17/19 18:08 08/17/19 18:32 Dilaudid IM 08/17/19 18:09 0.5 mg ONETIME ONE Administration Influenza Virus Vaccine 60 mcg 08/17/19 18:15 08/17/19 18:32 Fluzone Quad [id number] Syringe IM 08/17/19 18:16 60 mcg .ONCE ONE Administration Simethicone 160 mg 08/17/19 18:08 08/17/19 18:32 Simethicone PO 08/17/19 18:09 160 mg ONETIME ONE Administration - Re-Assessments/Exams Free Text/Narrative Re-Assessment/Exam: 08/17/19 18:20 Presents to the ED for evaluation of abdominal pain and gas pains after laparoscopic surgery yesterday. Ordered KUB, urinalysis for further evaluation. Patient will be given 0.5 mg IM Dilaudid and 160 mg p.o. simethicone for initial management. 08/17/19 19:46 Patient's KUB is done, and demonstrates a moderate amount of stool within the right side of the colon, and a large bout of gas within the left colon. Patient was reassessed at bedside, and states that she is feeling a little bit better, the combination of meds seem to help give her a little bit relief, however she is not had much for flatus yet. She notes that she still feels quite full. I will likely send the patient home with a bottle of magnesium citrate and have her take MiraLAX as previously directed. I will direct her also to take Gas-X [id number] for further gas pains relief. UA is still pending, as I had forgot to order it at initial time of exam. 08/17/19 20:11 UA is done and demonstrates no acute infection. Official radiology read is pending on the KUB x-ray, I would like to have that before I discharge the patient home. I did discuss the patient's clinical course with Dr. Brown, and he suggested getting official radiology read before discharge. 08/17/19 20:40 Patient x-ray is read by V rad, transverse and descending colon slightly dilated up to 6 cm. Mild ileus is not excluded. Oral contrast within the colon throughout. Infiltrate within the right lower lung field consider chest CT. At this time I think a CT might be a little too aggressive, I did order a 2 view chest x-ray for further evaluation. 08/17/19 22:44 Chest x-ray came back and also demonstrated the infiltrate within the right lower lobe, and suggested a CT be done. At this time I did call surgeon on- call Dr. Musa, and she believes that it very well due to atelectasis versus a pneumonia. She would recommend having the patient be more aggressive with her incentive spirometer, and have her follow-up with Dr. Garrison on Tuesday or present to the ER if she has any sort of fevers or chills. The patient became very frustrated with me as I ordered a chest x-ray for further evaluation of the infiltrate that was noted on the abdomen x-ray. She requested that she get her discharge papers so she could leave, it was at that time she called me stupid, and stated "you don't even know anything, you did not even review my chart to know that I had COPD and lung issues. " I assured her that I reviewed her chart, and tried to explain that the infiltrate was something that was a newer finding and not a chronic finding, however she was not receptive to this information. She was discharged home with general recommendations. Departure - Departure Time of Disposition: 21:41 Disposition: Home, Self-Care 01 Condition: Fair Clinical Impression: History of laparoscopic cholecystectomy, Abdominal gas pain, Infiltrate of right lung present on chest x-ray Constipation Qualifiers: Constipation type: unspecified constipation type Qualified Code(s): K59.00 - Constipation, unspecified - Discharge Information *PRESCRIPTION DRUG MONITORING PROGRAM REVIEWED*: No *COPY OF PRESCRIPTION DRUG MONITORING REPORT IN PATIENT RUFINO: No Instructions: Laparoscopic Cholecystectomy, Care After, [id number], Preventing Constipation After Surgery Referrals: Ping Tamez MD [Primary Care Provider] - Forms: ED Department Discharge Additional Instructions: You were evaluated in the ER today regarding your abdominal pain and gas pains. An abdominal x-ray was done, and demonstrates a large amount of gas within the left colon, and a moderate amount of stool within the right colon. You were given pain meds in the ER, and also a medication to relieve the gas in her abdomen. This seem to help provide pretty good relief. Recommend that you go to [facility], and obtain Gas-X and take as directed for dosing, recommend you also obtain a bottle of magnesium citrate, you will find this in the laxative section, please take 1/4-1/2 bottle, wait a few hours if you do not have a rather large bowel movement, recommend you repeat with the last half bottle. Please take your pain medication as previously prescribed, this may be contributing to slow down of your bowels. Dr. Garrison recommended taking MiraLAX to soften the stools, I would also keep doing that, on a regular basis while taking the opioid pain medication. The air in your abdomen, will likely reabsorb itself, may take up to 3 days to do so. Please expect that you will have a slight amount of abdominal discomfort during this time. If, however your pain is not much better by Tuesday recommend you call your surgeon for further management. These use your incentive spirometer at home, 10 repetitions every hour while awake, to help guard against collapsed lung tissue called atelectasis. If your symptoms should change or worsen however, please do not hesitate to return to the ER for evaluation. Sepsis Event Note - Evaluation Sepsis Screening Result: No Definite Risk - Focused Exam Vital Signs: Vital Signs Temp Pulse Resp BP Pulse Ox 08/17/19 17:58 98.6 F 74 20 140/68 99 Date Exam was Performed: 08/17/19 Time Exam was Performed: 22:44 - My Orders Last 24 Hours: My Active Orders 08/17/19 18:03 Influenza Vaccine Charge [RC] .DISCHARGE 08/17/19 18:09 KUB [Abdomen 1V Flat] [CR] Stat 08/17/19 20:40 Chest 2V [CR] Stat - Assessment/Plan Last 24 Hours: My Active Orders 08/17/19 18:03 Influenza Vaccine Charge [RC] .DISCHARGE 08/17/19 18:09 KUB [Abdomen 1V Flat] [CR] Stat 08/17/19 20:40 Chest 2V [CR] Stat
--- NOTE | 2019-08-20 07:12 | CR ---
Abdomen: Supine view of the abdomen was obtained. Comparison: Prior CT abdomen and pelvis study of 08/14/19. Contrast is noted within the colon from previous CT exam. Bowel gas pattern appears within normal limits. Bony structures are unremarkable. No abnormal calcifications or soft tissue abnormality is seen. Slight parenchymal density seen within the right mid-to lower lung most likely representing atelectasis or possibly change from aspiration. Impression: 1. Slight density within the right mid-to lower lung as described above. 2. Other incidental finding as noted above. Nothing acute is otherwise seen. Diagnostic code #1 I agree with preliminary report issued by [facility] ([facility] report finalized on 08/17/19, 9:20 PM Central Time) This report was dictated in [place] Standard Time
--- NOTE | 2019-08-20 07:12 | CR ---
Chest: Two views of the chest were obtained. Comparison: No chest x-ray is available. Heart size and mediastinum are normal. Increased density is noted within the right mid to lower lung. Lungs are hyperinflated compatible with emphysematous change. Lungs otherwise are clear. Bony structures appear within normal limits for the patient's age. Impression: 1. Emphysematous change. 2. Mild parenchymal density within the right mid to lower lung with differential including pneumonia, aspiration or atelectasis. Diagnostic code #3 This report was dictated in [place] Standard Time I agree with preliminary report issued by [facility] ([facility] report finalized on 08/17/19, 10:20 PM Central Time)
== END 2019-08-17 21:44 | disposition home or self-care (01) ==
LOC: JD.ED 17:38
DX: R14.1 Gas pain (principal); K59.00 Constipation, unspecified; R91.8 Other nonspecific abnormal finding of lung field; Z90.49 Acquired absence of other specified parts of digestive tract; M06.9 Rheumatoid arthritis, unspecified; F41.9 Anxiety disorder, unspecified; F32.9 Major depressive disorder, single episode, unspecified; F17.210 Nicotine dependence, cigarettes, uncomplicated; Z88.8 Allergy status to other drugs, medicaments and biological substances; Z79.899 Other long term (current) drug therapy
CPT/HCPCS: 71046; 74018; 81001; 90686; 96372; 99284; A9270; J1170; 99283

== ENCOUNTER 2019-10-07 18:03 | Inpatient (IN) | payer MEDICAID ==
--- NOTE | 2019-10-07 18:12 | EDM.PDOC ---
ED HPI GENERAL MEDICAL PROBLEM - General Chief Complaint: Fever Stated Complaint: BODY COLD/HEADACHE Time Seen by Provider: 10/07/19 18:12 Source of Information: Reports: Patient History Limitations: Reports: No Limitations - History of Present Illness INITIAL COMMENTS - FREE TEXT/NARRATIVE: 54-year-old female presents to the ED with a 3 day history of illness. She's not sure that all the symptoms came on at the same time but her chief complaint now is a severe headache temperature by 103.3 riders and chills with productive cough. Diagnsoed with Rt lung cancer with metastatic disease to her liver the beginning of this year.The lesion has been biopsied. The lesion was noted in her liver after gallbladder surgery that was done on August 17, 2019. She is currently awaiting further investigations by way of PET scan /MRI ,I believe this coming etc. to see if she is amenable to chemotherapy. She quit cigarette smoking 9 days ago. She has pain at the base of both lungs worse on the left side from coughing. She has not been able to eat all day today. She has no diarrhea and is mildly nauseated. She states she has a daughter at home that's diagnosed with pneumonia--(Preethi Herbert with known alpha 1 anti trypsin deficiency) and a grand child that is coughing paroxysmal and likely has influenza. Shee did have an influenza shot and a Pneumovax. Onset: Sudden Onset Date: 10/05/19 Duration: Day(s):, Getting Worse Location: Reports: Head (Severe generalized myalgia. Diffuse pounding headache) , Chest (Mildly productive cough without hemoptysis.), Generalized, Other ( Maria Eugenia's complete loss of appetite.) Quality: Reports: Other Severity: Severe (Signs and symptoms of influenza. 103.6.) Improves with: Reports: None Worsens with: Reports: None Context: Reports: Other (Illness started about 2-1/2 days ago.). Denies: Activity, Exercise, Lifting, Sick Contact, Trauma Associated Symptoms: Reports: Chest Pain, Cough (From coughing and deep breathing there is a pleuritic component or pain particularly left posterior lateral chest), cough w sputum ( minimally productive.), Diaphoresis, Fever/ Chills (High fever with chills and rigors.), Headaches, Loss of Appetite, Malaise, Nausea/Vomiting, Shortness of Breath, Weakness (Nausea without vomiting ). 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 take Tylenol before bed last night. She is having quite a bit of night sweats. ) - Related Data Allergies Allergy/AdvReac Type Severity Reaction Status Date / Time ketorolac [From Toradol] AdvReac Vomiting Verified 10/07/19 18:14 Home Meds: Home Meds traZODone HCl [Trazodone HCl] 150 mg PO BEDTIME 05/19/18 [History] Sertraline [Zoloft] 25 mg PO DAILY 08/14/19 [History] Albuterol Sulfate [Proair Hfa] 2 inh INH Q4HR PRN 10/07/19 [History] lamoTRIgine 25 mg PO DAILY 10/07/19 [History] Past Medical History HEENT History: Reports: Impaired Vision Respiratory History: Reports: COPD Gastrointestinal History: Reports: Hepatitis Other Gastrointestinal History: "cured for hepatitis C" Genitourinary History: Reports: UTI, Recurrent 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 Oncologic (Cancer) History: Reports: Lung (Right lung carcinoma diagnosed by biopsy and CT exam within the last 5 weeks. She's not sure about what kind of lung cancer she has. It is known to be metastatic to her liver), Metastatic (To the liver) - Infectious Disease History Infectious Disease History: Reports: Hepatitis C Other Infectious Disease History: had treatment and now is clear since November. - Past Surgical History HEENT Surgical History: Reports: Oral Surgery GI Surgical History: Reports: Appendectomy, Cholecystectomy Female Surgical History: Reports: Hysterectomy Social & Family History - Family History Family Medical History: Noncontributory Cardiac: Reports: CAD Oncologic: Reports: Breast - Tobacco Use Smoking Status *Q: Current Every Day Smoker Tobacco Use Within Last Twelve Months: Cigarettes (Quit 9 days ago.) - Caffeine Use Caffeine Use: Reports: Coffee, Soda Other Caffeine Use: 2-3 coffee/day. 2 soda/day - Living Situation & Occupation Living situation: Reports: , with Family (Daughter, her 2 kids, and her boyfriend) Occupation: Disabled ED ROS GENERAL - Review of Systems Review Of Systems: See Below Constitutional: Reports: Fever, Chills, Malaise, Weakness, Fatigue, Diaphoresis (With rigors.), Decreased Appetite, Weight Loss HEENT: Reports: Other Respiratory: Reports: Shortness of Breath (Mild sore throat), Wheezing, Pleuritic Chest Pain, Cough, Sputum (Some pleuritic chest pain on deep inspiration left lung base posterior laterally.). Denies: Hemoptysis ( Minimal sputum production) Cardiovascular: Reports: Chest Pain, Dyspnea on Exertion, Lightheadedness. Denies: Blood Pressure Problem (As described above.), Claudication, Orthopnea Endocrine: Reports: Fatigue GI/Abdominal: Reports: Abdominal Pain, Decreased Appetite, Nausea. Denies: Constipation (Right upper quadrant abdominal pain with deep inspiration in the distribution of her liver.), Difficulty Swallowing, Distension, Flatus, Hematemesis, Hematochezia, Melena, Mucous in Stool, Stool Incontinence, Vomiting , Other : Reports: No Symptoms Musculoskeletal: Reports: Muscle Pain Skin: Reports: No Symptoms (Generalized myalgia.) Neurological: Reports: Other (Takes Lamictal 25 mg a day for reported seizures. I question this diagnosis.) Psychiatric: Reports: Anxiety, Depression (Currently not using Cymbalta) Hematologic/Lymphatic: Reports: No Symptoms Immunologic: Reports: No Symptoms ED EXAM, GENERAL - Physical Exam Exam: See Below Exam Limited By: No Limitations General Appearance: Alert, Moderate Distress, Other (She is obviously quite ill. She is very thin. Temperature is 39.6 pulse 100 respiratory rate of 19 with O2 sats of 96% on room air BP is 129/66.) Eye Exam: Bilateral Eye: Normal Inspection Ears: Normal TMs Throat/Mouth: Normal Voice, No Airway Compromise, Other (Tongue is dry and coated.). No: Normal Lips (Lips are dry and chapped) Head: Atraumatic, Normocephalic Neck: Normal Inspection, Supple, Non-Tender, Full Range of Motion, Other (No supraclavicular or infraclavicular adenopathy noted.). No: Lymphadenopathy (L) , Lymphadenopathy (R), Thyromegaly Respiratory/Chest: Lungs Clear, Normal Breath Sounds, No Accessory Muscle Use, Chest Non-Tender, Respiratory Distress (Mild tachypnea at rest.), Rhonchi ( Right posterior lung field) Cardiovascular: Normal Peripheral Pulses, Regular Rate, Rhythm, No Edema, No Gallop, No Murmur, No Rub Peripheral Pulses: 2+: Carotid (L), Carotid (R), Posterior Tibial (L), Posterior Tibial (R), Dorsalis Pedis (L), Dorsalis Pedis (R) GI/Abdominal: Soft, Tender (Celso right upper quadrant with palpable liver 2 cm ), Hepatomegaly. No: Distended ( or 2 fingerbreadths below the right costal margin.), Splenomegaly Back Exam: Normal Inspection. No: CVA Tenderness (L), CVA Tenderness (R) Extremities: Normal Inspection, Normal Range of Motion, Non-Tender, No Pedal Edema Neurological: Alert, Oriented, CN II-XII Intact, Normal Cognition Psychiatric: Tearful, Other (She is not feeling very good at all. [place] recent prognosis with lung cancer with metastatic disease to her liver.) Skin Exam: Warm, Dry, Intact, Normal Color, No Rash Course - Vital Signs Last Recorded V/S: Last Vital Signs Temp 39.4 C H 10/07/19 18:34 Pulse 100 10/07/19 18:11 Resp 19 10/07/19 18:11 BP 129/66 10/07/19 18:11 Pulse Ox 96 10/07/19 18:11 - Orders/Labs/Meds Orders: Active Orders 24 hr Category Date Time Status Chest 1V Frontal [CR] Stat Exams 10/07/19 18:19 Taken CULTURE BLOOD [BC] Stat Lab 10/07/19 18:35 Received CULTURE BLOOD [BC] Stat Lab 10/07/19 18:45 Received Azithromycin [Zithromax] 500 mg Med 10/07/19 19:33 Active Sodium Chloride 0.9% [Normal Saline] 250 ml IV ONETIME Dextrose 5%-0.9% NaCl [Dextrose 5%-Normal Saline] 1,000 Med 10/07/19 18:30 Active ml IV ASDIRECTED cefTRIAXone [Rocephin] 2 gm Med 10/07/19 19:27 Active Sodium Chloride 0.9% [Normal Saline] 100 ml IV ONETIME Blood Culture x2 Reflex Set [OM.PC] Stat Oth 10/07/19 18:20 Ordered Medication Orders Dextrose/Sodium Chloride (Dextrose 5%-Normal Saline) 1,000 mls @ 999 mls/hr IV ASDIRECTED IVONNE Last Admin: 10/07/19 18:34 Dose: 999 mls/hr Azithromycin 500 mg/ Sodium (Chloride) 250 mls @ 250 mls/hr IV ONETIME ONE Stop: 10/07/19 20:32 Ceftriaxone Sodium 2 gm/ (Sodium Chloride) 100 mls @ 200 mls/hr IV ONETIME ONE Stop: 10/07/19 19:56 Labs: Laboratory Tests 10/07/19 10/07/19 10/07/19 Range/Units 18:35 18:35 18:35 WBC 19.86 H (3.98-10.04) K/mm3 RBC 3.59 L (3.98-5.22) M/mm3 Hgb 10.0 L D (11.2-15.7) gm/dl Hct 29.9 L (34.1-44.9) % MCV 83.3 D (79.4-94.8) fl MCH 27.9 (25.6-32.2) pg MCHC 33.4 (32.2-35.5) g/dl RDW Std Deviation 39.9 (36.4-46.3) fL Plt Count 615 H D (182-369) K/mm3 MPV 8.5 L (9.4-12.3) fl Neutrophils % (Manual) 83 H (40-60) % Band Neutrophils % 0 (0-10) % Lymphocytes % (Manual) 8 L (20-40) % Atypical Lymphs % 0 % Monocytes % (Manual) 7 (2-10) % Eosinophils % (Manual) 2 (0.7-5.8) % Basophils % (Manual) 0 L (0.1-1.2) Platelet Estimate Increased Plt Morphology Comment Normal RBC Morph Comment Normal PT 11.5 (9.7-12.0) SECONDS INR 1.06 APTT 30 (22-31) SECONDS Sodium 132 L (136-145) mEq/L Potassium 3.6 (3.5-5.1) mEq/L Chloride 95 L (98-107) mEq/L Carbon Dioxide 26 (21-32) mEq/L Anion Gap 14.6 (5-15) BUN 8 (7-18) mg/dL Creatinine 0.7 (0.55-1.02) mg/dL Est Cr Clr Drug Dosing 66.45 mL/min Estimated GFR (MDRD) > 60 (>60) mL/min BUN/Creatinine Ratio 11.4 L (14-18) Glucose 110 H (74-106) mg/dL Lactic Acid (0.4-2.0) mmol/L Calcium 9.3 (8.5-10.1) mg/dL Magnesium 1.7 L (1.8-2.4) mg/dl Total Bilirubin 0.3 (0.2-1.0) mg/dL GGT 218 H (5-55) U/L AST 16 (15-37) U/L ALT 22 (14-59) U/L Alkaline Phosphatase 158 H (46-116) U/L C-Reactive Protein 14.3 H* (<1.0) mg/dL NT-Pro-B Natriuret Pep (0-125) pg/mL Total Protein 7.9 (6.4-8.2) g/dl Albumin 2.4 L (3.4-5.0) g/dl Globulin 5.5 gm/dL Albumin/Globulin Ratio 0.4 L (1-2) Lipase 72 L (73-393) U/L 10/07/19 10/07/19 Range/Units 18:35 18:45 WBC (3.98-10.04) K/mm3 RBC (3.98-5.22) M/mm3 Hgb (11.2-15.7) gm/dl Hct (34.1-44.9) % MCV (79.4-94.8) fl MCH (25.6-32.2) pg MCHC (32.2-35.5) g/dl RDW Std Deviation (36.4-46.3) fL Plt Count (182-369) K/mm3 MPV (9.4-12.3) fl Neutrophils % (Manual) (40-60) % Band Neutrophils % (0-10) % Lymphocytes % (Manual) (20-40) % Atypical Lymphs % % Monocytes % (Manual) (2-10) % Eosinophils % (Manual) (0.7-5.8) % Basophils % (Manual) (0.1-1.2) Platelet Estimate Plt Morphology Comment RBC Morph Comment PT (9.7-12.0) SECONDS INR APTT (22-31) SECONDS Sodium (136-145) mEq/L Potassium (3.5-5.1) mEq/L Chloride (98-107) mEq/L Carbon Dioxide (21-32) mEq/L Anion Gap (5-15) BUN (7-18) mg/dL Creatinine (0.55-1.02) mg/dL Est Cr Clr Drug Dosing mL/min Estimated GFR (MDRD) (>60) mL/min BUN/Creatinine Ratio (14-18) Glucose (74-106) mg/dL Lactic Acid 1.1 (0.4-2.0) mmol/L Calcium (8.5-10.1) mg/dL Magnesium (1.8-2.4) mg/dl Total Bilirubin (0.2-1.0) mg/dL GGT (5-55) U/L AST (15-37) U/L ALT (14-59) U/L Alkaline Phosphatase (46-116) U/L C-Reactive Protein (<1.0) mg/dL NT-Pro-B Natriuret Pep 293 H (0-125) pg/mL Total Protein (6.4-8.2) g/dl Albumin (3.4-5.0) g/dl Globulin gm/dL Albumin/Globulin Ratio (1-2) Lipase (73-393) U/L Meds: Medications Generic Name Dose Route Start Last Admin Trade Name Freq PRN Reason Stop Dose Admin Dextrose/Sodium Chloride 1,000 mls @ 999 mls/hr 10/07/19 18:30 10/07/19 18:34 Dextrose 5%-Normal Saline IV 999 mls/hr ASDIRECTED IVONNE Administration Azithromycin 500 mg/ Sodium 250 mls @ 250 mls/hr 10/07/19 19:33 Chloride IV 10/07/19 20:32 ONETIME ONE Ceftriaxone Sodium 2 gm/ 100 mls @ 200 mls/hr 10/07/19 19:27 Sodium Chloride IV 10/07/19 19:56 ONETIME ONE Discontinued Medications Generic Name Dose Route Start Last Admin Trade Name Freq PRN Reason Stop Dose Admin Acetaminophen 650 mg 10/07/19 18:22 10/07/19 18:34 Tylenol PO 10/07/19 18:23 650 mg ONETIME ONE Administration Hydromorphone HCl 0.25 mg 10/07/19 18:22 10/07/19 18:33 Dilaudid IVPUSH 10/07/19 18:23 0.25 mg ONETIME ONE Administration Ondansetron HCl 4 mg 10/07/19 18:22 10/07/19 18:34 Zofran IVPUSH 10/07/19 18:23 4 mg ONETIME ONE Administration - Radiology Interpretation Free Text/Narrative:: 54-year-old female presents to the ED with a 2-1/2-3 day history of illness. She is unclear when fever started but she has not felt well enough to eat much for the last 3 days. Now she is having high fever of 103.6 with rigors and chills yesterday and today. Mild cough but not all that productive . No hemoptysis. Hurts to breathe deeply on the left side with a pleuritic component to pain at the base of her left lung. Generalized myalgia. Complete loss of appetite. Diaphoresis and sweats. She did have a flu shot and a Pneumovax shot. She stopped smoking 9 days ago. She was diagnosed with right lung cancer with metastatic disease to her liver the beginning of this year. She is currently awaiting further workup with oncology with PET scan later this week etc. She has a daughter at home with reported pneumonia and one of her grandchildren is sick with influenza-like symptoms. Clinically I suspect she has influenza as well. Cousin with diagnosis of lung cancer and left pleuritic base of lung pain a chest x-ray will be obtained. IV will be D5 normal saline at open. She is allergic to Toradol. She will receive Zofran 4 mg IV with Dilaudid 0.25 mg IV as she is not very big, i.e. 45 kg. She will receive Tylenol 650 mg IV 15 minutes after Zofran has been infused. She will have blood cultures and septic workup carried out including lactic acid as well as influenza screen. - Re-Assessments/Exams Free Text/Narrative Re-Assessment/Exam: 10/07/19 19:24 White count is markedly elevated at 19.86 with 83% neutrophils and no band cells reported. Hemoglobin is 10.0 with a hematocrit of 29.9. Platelet count is elevated at 615,000. PT is 11.5 with an INR slightly elevated at 1.06. PTT is 30. Sodium is slightly low at 132. Potassium is 3.6 with chloride 95. Bicarbonate was 26 with an anion gap of 14.6. BUN is 8 with a creatinine of 0.7. GFR is greater than 60. Glucose is 110. Calcium is 9.3 magnesium minimally low at 1.7. Bilirubin is 0.3 GGT is elevated at 218. AST is 16 with an ALT of 22. Alkaline phosphatase is also slightly elevated at 158. C- reactive protein is 14.3. Total protein is 7.9 with a low albumin fraction of 2.4. Lipase is 72. Influenza screen is negative. Zyvox and Levaquin both interact with trazodone to prolonged QT interval and potentiate serotonin syndrome. I therefore will opt with for Rocephin 2 g intravenously and Zithromax 500 mg intravenously. I would suggest placing the trazodone 150 mg on hold while taking medication. They require alternative medication to help sleep well in the hospital such as Ambien or clonazepam 2 mg. 10/07/19 19:51 I discussed the findings with the patient and her daughter. Patient is actually quite happy to come into the hospital she feels too ill to try and help herself at home and she has a daughter at home with pneumonia with alpha 1 antitrypsin deficiency and one of the grandkids is sick with suspect influenza. Advise clonazepam 2 mg at bedtime to replace trazodone 150 mg to help her sleep so that there is not a drug drug interaction with Zithromax. Stressed the case with Dr. Pacheco artificial stone applicator hospitalist and the patient will be admitted to the [facility] surgery floor on telemetry. Of note her lactic acid level did come back in the normal range at 1.1. His completed her first liter of IV fluids for rehydration but with a normal lactic acid she does not need further aggressive fluid management. Second liter fluid will be D5 normal saline with 20 mg of KCl per liter to run at 125 mils per hour. Departure - Departure Time of Disposition: 20:02 Disposition: Admitted As Inpatient 66 Condition: Poor Clinical Impression: Acute febrile illness, Primary cancer of right lung metastatic to other site Pneumonia Qualifiers: Pneumonia type: due to unspecified organism Laterality: right Lung location: lower lobe of lung Qualified Code(s): J18.9 - Pneumonia, unspecified organism - Discharge Information *PRESCRIPTION DRUG MONITORING PROGRAM REVIEWED*: Not Applicable *COPY OF PRESCRIPTION DRUG MONITORING REPORT IN PATIENT RUFINO: Not Applicable Referrals: Ping Tamez MD [Primary Care Provider] - Forms: ED Department Discharge Sepsis Event Note - Focused Exam Vital Signs: Vital Signs Temp Temp Pulse Resp BP Pulse Ox 10/07/19 18:34 39.4 C H 10/07/19 18:11 39.6 C H 100 19 129/66 96 Date Exam was Performed: 10/07/19 Time Exam was Performed: 19:51 - My Orders Last 24 Hours: My Active Orders 10/07/19 18:19 Chest 1V Frontal [CR] Stat 10/07/19 18:20 Blood Culture x2 Reflex Set [OM.PC] Stat 10/07/19 18:30 Dextrose 5%-0.9% NaCl [Dextrose 5%-Normal Saline] 1,000 ml IV ASDIRECTED 10/07/19 18:35 CULTURE BLOOD [BC] Stat 10/07/19 18:45 CULTURE BLOOD [BC] Stat 10/07/19 19:27 cefTRIAXone [Rocephin] 2 gm Sodium Chloride 0.9% [Normal Saline] 100 ml IV ONETIME 10/07/19 19:33 Azithromycin [Zithromax] 500 mg Sodium Chloride 0.9% [Normal Saline] 250 ml IV ONETIME - Assessment/Plan Last 24 Hours: My Active Orders 10/07/19 18:19 Chest 1V Frontal [CR] Stat 10/07/19 18:20 Blood Culture x2 Reflex Set [OM.PC] Stat 10/07/19 18:30 Dextrose 5%-0.9% NaCl [Dextrose 5%-Normal Saline] 1,000 ml IV ASDIRECTED 10/07/19 18:35 CULTURE BLOOD [BC] Stat 10/07/19 18:45 CULTURE BLOOD [BC] Stat 10/07/19 19:27 cefTRIAXone [Rocephin] 2 gm Sodium Chloride 0.9% [Normal Saline] 100 ml IV ONETIME 10/07/19 19:33 Azithromycin [Zithromax] 500 mg Sodium Chloride 0.9% [Normal Saline] 250 ml IV ONETIME
[2019-10-07] MEDS ORDERED: HYDROmorphone 0.5 MG/0.5 ML Syringe IVPUSH ONE ×2 (18:22→19:52)
[2019-10-07] MEDS ORDERED: Acetaminophen 325 MG Tab PO ONE (18:22)
[2019-10-07] MEDS ORDERED: Ondansetron 4 MG/2 ML SDV IVPUSH ONE (18:22)
[2019-10-07] MEDS: Dextrose 5%-0.9% NaCl 1,000 ML IV SCH ×3 (18:34→20:35)
[2019-10-07] MEDS ORDERED: cefTRIAXone 2 GM in Sodium Chloride 0.9% 100 ML IV ONE (19:27)
[2019-10-07] MEDS ORDERED: Azithromycin 500 MG in Sodium Chloride 0.9% 250 ML IV ONE (19:33)
[2019-10-07] MEDS ORDERED: Dextrose 5%-0.9% NaCl with KCl 1,000 ML IV SCH (20:00)
--- NOTE | 2019-10-07 20:50 | CR ---
Chest: Portable view of the chest was obtained. Comparison: Prior chest CT study of 08/24/19 and chest x-ray [id number]. Increasing masslike density is noted within the right lung base from prior study. Lungs otherwise are clear but hyperinflated. Heart size and mediastinum are normal. Scoliosis is noted within the spine. Impression: 1. Increasing masslike density within the right lung base. Finding suspicious for worsening neoplasm. 2. Emphysematous change. 3. Nothing acute is otherwise seen. Diagnostic code #9 This report was dictated in [place] Standard Time
[2019-10-07] MEDS ORDERED: Albuterol/Ipratropium 3.0-0.5 MG/3 ML Neb Soln NEB PRN (21:57)
[2019-10-07] MEDS ORDERED: Acetaminophen 325 MG Tab PO PRN (21:57)
[2019-10-07] MEDS ORDERED: Albuterol 0.083% 2.5 MG/3 ML Neb Soln NEB PRN (21:57)
--- NOTE | 2019-10-07 22:07 | PCM.HP.2 ---
H&P History of Present Illness - General Date of Service: 10/07/19 Admit Problem/Dx: Admission Diagnosis/Problem Admission Diagnosis/Problem Pneumonia - History of Present Illness Initial Comments - Free Text/Narative: 54-year-old female with history of metastatic lung cancer to the liver diagnosed late July presents to the emergency room with symptoms of upper respiratory tract infection and fever. Patient had a fever of 103.3 with dry cough and runny nose. She states that she has a mass in her liver that was biopsied and a mass in her lung. She stopped smoking approximately 9 days ago. Patient has not had a PET scan or chemotherapy. Patient received Pneumovax a couple of weeks ago and influenza vaccine a couple months ago. She does complain of right-sided upper abdominal pain. Chest x-ray showed a increasing masslike density within the right lung base suspicious for worsening neoplasm. Emphysematous change. Labs: WBC 19.86, hemoglobin 10.0 (13.1 on 08/16/2019), platelet count 615, sodium 132, potassium 3.6, chloride 95, anion gap 14.6, BUN 8, creatinine 0.7, lactic acid 1.1, GGT 218, magnesium 1.7. Patient given Rocephin and azithromycin in the emergency room. Patient also has a history of seizure disorder. She states that she developed seizures in the and her last seizure was in May. Her neurologist recently took her off of carbamazepine and has started her on Lamictal. Patient is currently on only 25 mg a day and will increase it to twice a day in 2 days. - Related Data Allergies/Adverse Reactions: Allergies Allergy/AdvReac Type Severity Reaction Status Date / Time ketorolac [From Toradol] AdvReac Vomiting Verified 10/07/19 20:58 Home Medications: Home Meds traZODone HCl [Trazodone HCl] 150 mg PO BEDTIME 05/19/18 [History] Sertraline [Zoloft] 25 mg PO DAILY 08/14/19 [History] Albuterol Sulfate [Proair Hfa] 2 inh INH Q4HR PRN 10/07/19 [History] lamoTRIgine 25 mg PO DAILY 10/07/19 [History] Past Medical History HEENT History: Reports: Impaired Vision, Other (See Below) Other HEENT History: wears glasses Respiratory History: Reports: COPD, Other (See Below) Other Respiratory History: emphysema and lung cancer Gastrointestinal History: Reports: Hepatitis Other Gastrointestinal History: "cured for hepatitis C" Genitourinary History: Reports: UTI, 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 Oncologic (Cancer) History: Reports: Liver, Lung, Metastatic Dermatologic History: Reports: Other (See Below) Other Dermatologic History: dry skin - Infectious Disease History Infectious Disease History: Reports: Chicken Pox, Hepatitis C Other Infectious Disease History: had treatment and now is clear since November. - Past Surgical History HEENT Surgical History: Reports: Oral Surgery Other HEENT Surgeries/Procedures: upper dentures Respiratory Surgical History: Reports: None GI Surgical History: Reports: Appendectomy, Cholecystectomy Female Surgical History: Reports: Hysterectomy Neurological Surgical History: Reports: None Musculoskeletal Surgical History: Reports: None Oncologic Surgical History: Reports: None Social & Family History - Family History Family Medical History: Noncontributory Cardiac: Reports: CAD Oncologic: Reports: Breast - Tobacco Use Smoking Status *Q: Former Smoker Used Tobacco, but Quit: Yes Month/Year Tobacco Last Used: 09/27/19 Second Hand Smoke Exposure: No - Caffeine Use Caffeine Use: Reports: Coffee, Soda Other Caffeine Use: 2 cups a day sometimes 3 - Recreational Drug Use Recreational Drug Use: Yes Drug Use in Last 12 Months: No Recreational Drug Type: Reports: Marijuana/Hashish, Methamphetamine Other Recreational Drug Type: none for 3 years in february - Living Situation & Occupation Living situation: Reports: , with Family (Daughter, her 2 kids, and her boyfriend) Occupation: Disabled H&P Review of Systems - Review of Systems: Review Of Systems: Comprehensive ROS is negative, except as noted in HPI. Exam - Exam Exam: See Below - Vital Signs Vital Signs: Last Vital Signs Temp 97.9 F 10/07/19 20:45 Pulse 74 10/07/19 20:45 Resp 17 10/07/19 20:45 BP 94/56 L 10/07/19 20:45 Pulse Ox 95 02/16/20 20:45 Weight: 101 lb - Exam General: Alert, Oriented, Other (Cachectic) HEENT: Conjunctiva Clear, Hearing Intact, Mucosa Moist & [place] Neck: Supple, Trachea Midline, 2 Lungs: Normal Respiratory Effort, Rhonchi (Right lower lobe), Wheezing (Faint wheeze bilaterally) Cardiovascular: Regular Rate, Regular Rhythm GI/Abdominal Exam: Normal Bowel Sounds, Soft, Non-Tender, No Organomegaly, No Distention, No Abnormal Bruit, No Mass Back Exam: Normal Inspection Extremities: Normal Inspection, Normal Range of Motion, Non-Tender, No Pedal Edema, Normal Capillary Refill Skin: Warm, Dry, Intact Neurological: Cranial Nerves Intact Neuro Extensive - Mental Status: Alert, Oriented x3, Normal Mood/Affect, Normal Cognition, Memory Intact Neuro Extensive - Motor, Sensory, Reflexes: CN II-XII Intact Psychiatric: Alert, Normal Affect, Normal Mood - Patient Data Lab Results Last 24 hrs: Laboratory Results - last 24 hr 10/07/19 10/07/19 10/07/19 Range/Units 18:35 18:35 18:35 WBC 19.86 H (3.98-10.04) K/mm3 RBC 3.59 L (3.98-5.22) M/mm3 Hgb 10.0 L D (11.2-15.7) gm/dl Hct 29.9 L (34.1-44.9) % MCV 83.3 D (79.4-94.8) fl MCH 27.9 (25.6-32.2) pg MCHC 33.4 (32.2-35.5) g/dl RDW Std Deviation 39.9 (36.4-46.3) fL Plt Count 615 H D (182-369) K/mm3 MPV 8.5 L (9.4-12.3) fl Neutrophils % (Manual) 83 H (40-60) % Band Neutrophils % 0 (0-10) % Lymphocytes % (Manual) 8 L (20-40) % Atypical Lymphs % 0 % Monocytes % (Manual) 7 (2-10) % Eosinophils % (Manual) 2 (0.7-5.8) % Basophils % (Manual) 0 L (0.1-1.2) Platelet Estimate Increased Plt Morphology Comment Normal RBC Morph Comment Normal PT 11.5 (9.7-12.0) SECONDS INR 1.06 APTT 30 (22-31) SECONDS Sodium 132 L (136-145) mEq/L Potassium 3.6 (3.5-5.1) mEq/L Chloride 95 L (98-107) mEq/L Carbon Dioxide 26 (21-32) mEq/L Anion Gap 14.6 (5-15) BUN 8 (7-18) mg/dL Creatinine 0.7 (0.55-1.02) mg/dL Est Cr Clr Drug Dosing 66.45 mL/min Estimated GFR (MDRD) > 60 (>60) mL/min BUN/Creatinine Ratio 11.4 L (14-18) Glucose 110 H (74-106) mg/dL Lactic Acid (0.4-2.0) mmol/L Calcium 9.3 (8.5-10.1) mg/dL Magnesium 1.7 L (1.8-2.4) mg/dl Total Bilirubin 0.3 (0.2-1.0) mg/dL GGT 218 H (5-55) U/L AST 16 (15-37) U/L ALT 22 (14-59) U/L Alkaline Phosphatase 158 H (46-116) U/L C-Reactive Protein 14.3 H* (<1.0) mg/dL NT-Pro-B Natriuret Pep (0-125) pg/mL Total Protein 7.9 (6.4-8.2) g/dl Albumin 2.4 L (3.4-5.0) g/dl Globulin 5.5 gm/dL Albumin/Globulin Ratio 0.4 L (1-2) Lipase 72 L (73-393) U/L 10/07/19 10/07/19 Range/Units 18:35 18:45 WBC (3.98-10.04) K/mm3 RBC (3.98-5.22) M/mm3 Hgb (11.2-15.7) gm/dl Hct (34.1-44.9) % MCV (79.4-94.8) fl MCH (25.6-32.2) pg MCHC (32.2-35.5) g/dl RDW Std Deviation (36.4-46.3) fL Plt Count (182-369) K/mm3 MPV (9.4-12.3) fl Neutrophils % (Manual) (40-60) % Band Neutrophils % (0-10) % Lymphocytes % (Manual) (20-40) % Atypical Lymphs % % Monocytes % (Manual) (2-10) % Eosinophils % (Manual) (0.7-5.8) % Basophils % (Manual) (0.1-1.2) Platelet Estimate Plt Morphology Comment RBC Morph Comment PT (9.7-12.0) SECONDS INR APTT (22-31) SECONDS Sodium (136-145) mEq/L Potassium (3.5-5.1) mEq/L Chloride (98-107) mEq/L Carbon Dioxide (21-32) mEq/L Anion Gap (5-15) BUN (7-18) mg/dL Creatinine (0.55-1.02) mg/dL Est Cr Clr Drug Dosing mL/min Estimated GFR (MDRD) (>60) mL/min BUN/Creatinine Ratio (14-18) Glucose (74-106) mg/dL Lactic Acid 1.1 (0.4-2.0) mmol/L Calcium (8.5-10.1) mg/dL Magnesium (1.8-2.4) mg/dl Total Bilirubin (0.2-1.0) mg/dL GGT (5-55) U/L AST (15-37) U/L ALT (14-59) U/L Alkaline Phosphatase (46-116) U/L C-Reactive Protein (<1.0) mg/dL NT-Pro-B Natriuret Pep 293 H (0-125) pg/mL Total Protein (6.4-8.2) g/dl Albumin (3.4-5.0) g/dl Globulin gm/dL Albumin/Globulin Ratio (1-2) Lipase (73-393) U/L Result Diagrams: 10/07/19 18:35 10/07/19 18:35 Pb Results Last 24 hrs: Microbiology 10/07/19 18:35 Influenza Type A Antigen Screen - Final Nasal Aspirate, Unspecified NEGATIVE INFLUENZA A VIRUS AG REFERENCE RANGE: NEGATIVE Influenza Type B Antigen Screen - Final NEGATIVE INFLUENZA B VIRUS AG REFERENCE RANGE: NEGATIVE Sepsis Event Note - Evaluation Sepsis Screening Result: No Definite Risk - Focused Exam Vital Signs: Vital Signs Temp Temp Pulse Pulse Resp BP BP 10/07/19 20:45 97.9 F 74 17 94/56 L 10/07/19 18:34 103 F H 10/07/19 18:11 103.3 F H 100 19 129/66 Pulse Ox 10/07/19 20:45 95 10/07/19 18:34 10/07/19 18:11 96 Date Exam was Performed: 10/07/19 Time Exam was Performed: 22:51 Problem List Initiated/Reviewed/Updated: Yes Orders Last 24hrs: Active Orders 24 hr Category Date Time Status Admission Status [Patient Status] [ADT] Routine ADT 10/07/19 19:53 Active Oxygen Therapy [RC] PRN Care 10/07/19 21:58 Ordered RT Aerosol Therapy [RC] ASDIRECTED Care 10/07/19 22:02 Ordered Up ad Destiny [RC] ASDIRECTED Care 10/07/19 21:57 Ordered VTE/DVT Education [RC] PER UNIT ROUTINE Care 10/07/19 21:58 Ordered Vital Signs [RC] Q4H Care 10/07/19 21:58 Ordered Regular Diet [DIET] Diet 10/08/19 Breakfast Ordered C-REACTIVE PROTEIN [CHEM] AM Lab 10/08/19 05:11 Ordered C-REACTIVE PROTEIN [CHEM] AM Lab 10/09/19 05:11 Ordered CBC WITH AUTO DIFF [HEME] AM Lab 10/08/19 05:11 Ordered CBC WITH AUTO DIFF [HEME] AM Lab 10/09/19 05:11 Ordered COMPREHENSIVE METABOLIC PN,CMP [CHEM] AM Lab 10/08/19 05:11 Ordered COMPREHENSIVE METABOLIC PN,CMP [CHEM] AM Lab 10/09/19 05:11 Ordered CULTURE BLOOD [BC] Stat Lab 10/07/19 18:35 Received CULTURE BLOOD [BC] Stat Lab 10/07/19 18:45 Received MAGNESIUM [CHEM] AM Lab 10/08/19 05:11 Ordered MAGNESIUM [CHEM] AM Lab 10/09/19 05:11 Ordered RESPIRATORY PANEL Routine Lab 10/07/19 22:06 Ordered STREP PNEUMONIAE ANTIGEN [MREF] Routine Lab 10/07/19 22:05 Ordered Acetaminophen [Tylenol] Med 10/07/19 21:57 Ordered 650 mg PO Q4H PRN Acetaminophen/HYDROcodone [Carney 325-5 MG] Med 10/07/19 21:57 Ordered 1 tab PO Q4H PRN Albuterol [Proventil Neb Soln] Med 02/16/20 21:57 Ordered 2.5 mg NEB Q2H PRN Albuterol/Ipratropium [DuoNeb 3.0-0.5 MG/3 ML] Med 10/07/19 21:57 Ordered 3 ml NEB Q4H PRN Azithromycin [Zithromax] 250 mg Med 10/08/19 20:00 Ordered Sodium Chloride 0.9% [Normal Saline] 250 ml IV Q24H Dextrose 5%-0.9% NaCl [Dextrose 5%-Normal Saline] 1,000 Med 10/07/19 18:30 Active ml IV ASDIRECTED Enoxaparin [Lovenox] Med 10/08/19 09:00 Ordered 40 mg SUBCUT DAILY Melatonin Med 10/08/19 21:00 Ordered 9 mg PO BEDTIME Oseltamivir [Tamiflu] Med 10/07/19 22:15 Ordered 75 mg PO BID Sertraline [Zoloft] Med 10/08/19 09:00 Ordered 25 mg PO DAILY cefTRIAXone [Rocephin] 1 gm Med 10/08/19 19:00 Ordered Sodium Chloride 0.9% [Normal Saline] 100 ml IV Q24H lamoTRIgine Med 10/07/19 21:00 Ordered 25 mg PO BEDTIME lamoTRIgine Med 10/09/19 09:00 Once 25 mg PO BID ONE Blood Culture x2 Reflex Set [OM.PC] Stat Oth 10/07/19 18:20 Ordered Resuscitation Status Routine Resus Stat 10/07/19 21:57 Ordered Medication Orders Acetaminophen (Tylenol) 650 mg PO Q4H PRN PRN Reason: Pain (Mild 1-3)/fever Hydrocodone Bitart/Acetaminophen (Carney 325-5 Mg) 1 tab PO Q4H PRN PRN Reason: Pain (moderate 4-6) Albuterol (Proventil Neb Soln) 2.5 mg NEB Q2H PRN PRN Reason: Shortness Of Breath/wheezing Albuterol/Ipratropium (Duoneb 3.0-0.5 Mg/3 Ml) 3 ml NEB Q4H PRN PRN Reason: Shortness Of Breath/wheezing Enoxaparin Sodium (Lovenox) 40 mg SUBCUT DAILY IVONNE Dextrose/Sodium Chloride (Dextrose 5%-Normal Saline) 1,000 mls @ 999 mls/hr IV ASDIRECTED IVONNE Last Admin: 10/07/19 20:35 Dose: 999 mls/hr Infusion: 10/07/19 20:35 Dose: 999 mls/hr Admin: 10/07/19 20:07 Dose: 999 mls/hr Infusion: 10/07/19 19:35 Dose: 999 mls/hr Admin: 10/07/19 18:34 Dose: 999 mls/hr Azithromycin 250 mg/ Sodium (Chloride) 250 mls @ 250 mls/hr IV Q24H IVONNE Stop: 10/11/19 20:59 Ceftriaxone Sodium 1 gm/ (Sodium Chloride) 100 mls @ 200 mls/hr IV Q24H IVONNE Lamotrigine (Lamotrigine) 25 mg PO BID ONE Stop: 10/09/19 09:01 Melatonin (Melatonin) 9 mg PO BEDTIME IVONNE Non-Formulary Medication (Lamotrigine) 25 mg PO BEDTIME IVONNE Stop: 10/09/19 21:01 Oseltamivir Phosphate (Tamiflu) 75 mg PO BID IVONNE Sertraline HCl (Zoloft) 25 mg PO DAILY IVONNE Assessment/Plan Comment:: Assessment * Right lower lobe pneumonia/metastatic lung disease with mass in the right lung base * Started on Rocephin and azithromycin * Chest x-ray suggestive for increasing size of the mass versus secondary infiltrate. * WBC 19.6,, fever 103.3, lactic acid 1.1, C-reactive protein 14.3 * Right lower chest/upper abdomen pain * COPD exacerbation * Worsening cough * Mild wheeze on exam * Chest x-ray consistent with emphysematous changes * Hypomagnesemia * Seizure disorder * Recently switched to Lamictal and titrating up * Last seizure May, seizure disorder diagnosed in the * Depression/anxiety * On sertraline * Trazodone at night, held secondary to interaction with Zithromax Plan * Admit to medical floor * Continue Rocephin and azithromycin * Albuterol nebs every 2 hours as needed wheeze * DuoNeb every 6 hours as needed wheeze * Solu-Medrol 40 mg every 8 hours * Lamictal 25 mg in the evening for 2 days then 25 mg twice daily * Carney and Tylenol for pain * Melatonin for insomnia * Respiratory panel, strep pneumonia antigen, blood cultures * VTE prophylaxis with Lovenox * CODE STATUS: Full code * Length of stay anticipated 3 to 4 days - Mortality Measure Prognosis:: Poor
[2019-10-07] MEDS ORDERED: Oseltamivir 75 MG Cap PO SCH (22:15)
[2019-10-07] MEDS ORDERED: Nicotine 21 MG/24 Hr Patch TRDERM ONE (22:33)
[2019-10-07] MEDS ORDERED: Magnesium Sulfate/Water 2 GM in Premix Bag 1 BAG IV ONE (22:38)
[2019-10-07] MEDS: methylPREDNISolone Sodium Succinate 40 MG/1 ML SDV IVPUSH SCH (23:16)
[2019-10-07] MEDS: Melatonin 3 MG Tab PO SCH (23:16)
[2019-10-08] MEDS: Oseltamivir 30 MG Cap PO SCH ×3 (00:38→20:42)
[2019-10-08] MEDS: methylPREDNISolone Sodium Succinate 40 MG/1 ML SDV IVPUSH SCH ×3 (06:52→22:40)
[2019-10-08] MEDS ORDERED: Magnesium Hydroxide 400 MG/5 ML Susp 30 ML Cup PO ONE (08:13)
[2019-10-08] MEDS: Sertraline 25 MG Tab PO SCH (08:33)
[2019-10-08] MEDS: Enoxaparin 40 MG/0.4 ML Syringe SUBCUT SCH (08:33)
[2019-10-08] MEDS ORDERED: Polyethylene Glycol 3350 Powder 17 GM Packet PO ONE (08:45)
[2019-10-08] MEDS ORDERED: Nicotine 21 MG/24 Hr Patch TRDERM SCH (09:00)
[2019-10-08] MEDS: Acetaminophen/HYDROcodone 325-5 MG Tab PO PRN (10:56)
--- NOTE | 2019-10-08 13:52 | PCM.PN ---
- General Info Date of Service: 10/08/19 Admission Dx/Problem (Free Text): Admission Diagnosis/Problem Admission Diagnosis/Problem Pneumonia Subjective Update: Patient states that she is having less pain. Generally feeling better. Tolerating a diet. Functional Status: Reports: Pain Controlled - Review of Systems General: Reports: No Symptoms HEENT: Reports: No Symptoms Pulmonary: Reports: No Symptoms Cardiovascular: Reports: No Symptoms Gastrointestinal: Reports: Abdominal Pain - Patient Data Vitals - Most Recent: Last Vital Signs Temp 97.3 F 10/08/19 12:52 Pulse 56 L 10/08/19 12:52 Resp 16 10/08/19 12:52 BP 93/52 L 10/08/19 12:52 Pulse Ox 99 10/08/19 12:52 Weight - Most Recent: 100 lb 12.8 oz I&O - Last 24 Hours: Intake & Output 10/07/19 10/08/19 10/08/19 22:59 06:59 14:59 Intake Total 1660 540 Output Total 1100 Balance 560 540 Lab Results Last 24 Hours: Laboratory Results - last 24 hr 10/07/19 10/07/19 10/07/19 Range/Units 18:35 18:35 18:35 WBC 19.86 H (3.98-10.04) K/mm3 RBC 3.59 L (3.98-5.22) M/mm3 Hgb 10.0 L D (11.2-15.7) gm/dl Hct 29.9 L (34.1-44.9) % MCV 83.3 D (79.4-94.8) fl MCH 27.9 (25.6-32.2) pg MCHC 33.4 (32.2-35.5) g/dl RDW Std Deviation 39.9 (36.4-46.3) fL Plt Count 615 H D (182-369) K/mm3 MPV 8.5 L (9.4-12.3) fl Neut % (Auto) (34.0-71.1) % Lymph % (Auto) (19.3-51.7) % [place] % (Auto) (4.7-12.5) % Eos % (Auto) (0.7-5.8) Baso % (Auto) (0.1-1.2) % Neut # (Auto) (1.56-6.13) K/mm3 Lymph # (Auto) (1.18-3.74) K/mm3 [place] # (Auto) (0.24-0.36) K/mm3 Eos # (Auto) (0.04-0.36) K/mm3 Baso # (Auto) (0.01-0.08) K/mm3 Neutrophils % (Manual) 83 H (40-60) % Band Neutrophils % 0 (0-10) % Lymphocytes % (Manual) 8 L (20-40) % Atypical Lymphs % 0 % Monocytes % (Manual) 7 (2-10) % Eosinophils % (Manual) 2 (0.7-5.8) % Basophils % (Manual) 0 L (0.1-1.2) Manual Slide Review Platelet Estimate Increased Plt Morphology Comment Normal RBC Morph Comment Normal PT 11.5 (9.7-12.0) SECONDS INR 1.06 APTT 30 (22-31) SECONDS Sodium 132 L (136-145) mEq/L Potassium 3.6 (3.5-5.1) mEq/L Chloride 95 L (98-107) mEq/L Carbon Dioxide 26 (21-32) mEq/L Anion Gap 14.6 (5-15) BUN 8 (7-18) mg/dL Creatinine 0.7 (0.55-1.02) mg/dL Est Cr Clr Drug Dosing 66.45 mL/min Estimated GFR (MDRD) > 60 (>60) mL/min BUN/Creatinine Ratio 11.4 L (14-18) Glucose 110 H (74-106) mg/dL Lactic Acid (0.4-2.0) mmol/L Calcium 9.3 (8.5-10.1) mg/dL Magnesium 1.7 L (1.8-2.4) mg/dl Total Bilirubin 0.3 (0.2-1.0) mg/dL GGT 218 H (5-55) U/L AST 16 (15-37) U/L ALT 22 (14-59) U/L Alkaline Phosphatase 158 H (46-116) U/L C-Reactive Protein 14.3 H* (<1.0) mg/dL NT-Pro-B Natriuret Pep (0-125) pg/mL Total Protein 7.9 (6.4-8.2) g/dl Albumin 2.4 L (3.4-5.0) g/dl Globulin 5.5 gm/dL Albumin/Globulin Ratio 0.4 L (1-2) Lipase 72 L (73-393) U/L 10/07/19 10/07/19 10/08/19 Range/Units 18:35 18:45 05:45 WBC 18.23 H (3.98-10.04) K/mm3 RBC 3.70 L (3.98-5.22) M/mm3 Hgb 10.2 L (11.2-15.7) gm/dl Hct 31.6 L (34.1-44.9) % MCV 85.4 (79.4-94.8) fl MCH 27.6 (25.6-32.2) pg MCHC 32.3 (32.2-35.5) g/dl RDW Std Deviation 41.1 (36.4-46.3) fL Plt Count 551 H (182-369) K/mm3 MPV 9.0 L (9.4-12.3) fl Neut % (Auto) 94.6 H (34.0-71.1) % Lymph % (Auto) 3.7 L (19.3-51.7) % [place] % (Auto) 1.3 L (4.7-12.5) % Eos % (Auto) 0.2 L (0.7-5.8) Baso % (Auto) 0.2 (0.1-1.2) % Neut # (Auto) 17.26 H (1.56-6.13) K/mm3 Lymph # (Auto) 0.68 L (1.18-3.74) K/mm3 [place] # (Auto) 0.23 L (0.24-0.36) K/mm3 Eos # (Auto) 0.03 L (0.04-0.36) K/mm3 Baso # (Auto) 0.03 (0.01-0.08) K/mm3 Neutrophils % (Manual) (40-60) % Band Neutrophils % (0-10) % Lymphocytes % (Manual) (20-40) % Atypical Lymphs % % Monocytes % (Manual) (2-10) % Eosinophils % (Manual) (0.7-5.8) % Basophils % (Manual) (0.1-1.2) Manual Slide Review Abnormal smear Platelet Estimate Plt Morphology Comment RBC Morph Comment PT (9.7-12.0) SECONDS INR APTT (22-31) SECONDS Sodium (136-145) mEq/L Potassium (3.5-5.1) mEq/L Chloride (98-107) mEq/L Carbon Dioxide (21-32) mEq/L Anion Gap (5-15) BUN (7-18) mg/dL Creatinine (0.55-1.02) mg/dL Est Cr Clr Drug Dosing mL/min Estimated GFR (MDRD) (>60) mL/min BUN/Creatinine Ratio (14-18) Glucose (74-106) mg/dL Lactic Acid 1.1 (0.4-2.0) mmol/L Calcium (8.5-10.1) mg/dL Magnesium (1.8-2.4) mg/dl Total Bilirubin (0.2-1.0) mg/dL GGT (5-55) U/L AST (15-37) U/L ALT (14-59) U/L Alkaline Phosphatase (46-116) U/L C-Reactive Protein (<1.0) mg/dL NT-Pro-B Natriuret Pep 293 H (0-125) pg/mL Total Protein (6.4-8.2) g/dl Albumin (3.4-5.0) g/dl Globulin gm/dL Albumin/Globulin Ratio (1-2) Lipase (73-393) U/L 10/08/19 Range/Units 05:45 WBC (3.98-10.04) K/mm3 RBC (3.98-5.22) M/mm3 Hgb (11.2-15.7) gm/dl Hct (34.1-44.9) % MCV (79.4-94.8) fl MCH (25.6-32.2) pg MCHC (32.2-35.5) g/dl RDW Std Deviation (36.4-46.3) fL Plt Count (182-369) K/mm3 MPV (9.4-12.3) fl Neut % (Auto) (34.0-71.1) % Lymph % (Auto) (19.3-51.7) % [place] % (Auto) (4.7-12.5) % Eos % (Auto) (0.7-5.8) Baso % (Auto) (0.1-1.2) % Neut # (Auto) (1.56-6.13) K/mm3 Lymph # (Auto) (1.18-3.74) K/mm3 [place] # (Auto) (0.24-0.36) K/mm3 Eos # (Auto) (0.04-0.36) K/mm3 Baso # (Auto) (0.01-0.08) K/mm3 Neutrophils % (Manual) (40-60) % Band Neutrophils % (0-10) % Lymphocytes % (Manual) (20-40) % Atypical Lymphs % % Monocytes % (Manual) (2-10) % Eosinophils % (Manual) (0.7-5.8) % Basophils % (Manual) (0.1-1.2) Manual Slide Review Platelet Estimate Plt Morphology Comment RBC Morph Comment PT (9.7-12.0) SECONDS INR APTT (22-31) SECONDS Sodium 137 (136-145) mEq/L Potassium 4.1 (3.5-5.1) mEq/L Chloride 101 (98-107) mEq/L Carbon Dioxide 28 (21-32) mEq/L Anion Gap 12.1 (5-15) BUN 8 (7-18) mg/dL Creatinine 0.8 (0.55-1.02) mg/dL Est Cr Clr Drug Dosing 58.03 mL/min Estimated GFR (MDRD) > 60 (>60) mL/min BUN/Creatinine Ratio 10.0 L (14-18) Glucose 196 H (74-106) mg/dL Lactic Acid (0.4-2.0) mmol/L Calcium 9.0 (8.5-10.1) mg/dL Magnesium 2.6 H (1.8-2.4) mg/dl Total Bilirubin 0.2 (0.2-1.0) mg/dL GGT (5-55) U/L AST 14 L (15-37) U/L ALT 17 (14-59) U/L Alkaline Phosphatase 139 H (46-116) U/L C-Reactive Protein 13.0 H* (<1.0) mg/dL NT-Pro-B Natriuret Pep (0-125) pg/mL Total Protein 7.3 (6.4-8.2) g/dl Albumin 2.1 L (3.4-5.0) g/dl Globulin 5.2 gm/dL Albumin/Globulin Ratio 0.4 L (1-2) Lipase (73-393) U/L Pb Results Last 24 Hours: Microbiology 10/07/19 18:35 Influenza Type A Antigen Screen - Final Nasal Aspirate, Unspecified NEGATIVE INFLUENZA A VIRUS AG REFERENCE RANGE: NEGATIVE Influenza Type B Antigen Screen - Final NEGATIVE INFLUENZA B VIRUS AG REFERENCE RANGE: NEGATIVE Med Orders - Current: Current Medications Acetaminophen (Tylenol) 650 mg PO Q4H PRN PRN Reason: Pain (Mild 1-3)/fever Hydrocodone Bitart/Acetaminophen ([place] 325-5 Mg) 1 tab PO Q4H PRN PRN Reason: Pain (moderate 4-6) Last Admin: 10/08/19 10:56 Dose: 1 tab Albuterol (Proventil Neb Soln) 2.5 mg NEB Q2H PRN PRN Reason: Shortness Of Breath/wheezing Albuterol/Ipratropium (Duoneb 3.0-0.5 Mg/3 Ml) 3 ml NEB Q4H PRN PRN Reason: Shortness Of Breath/wheezing Enoxaparin Sodium (Lovenox) 40 mg SUBCUT DAILY [facility] Last Admin: 10/08/19 08:33 Dose: 40 mg Azithromycin 250 mg/ Sodium (Chloride) 250 mls @ 250 mls/hr IV Q24H [facility] Stop: 10/11/19 21:59 Ceftriaxone Sodium 1 gm/ (Sodium Chloride) 100 mls @ 200 mls/hr IV Q24H [facility] Lamotrigine (Lamotrigine) 25 mg PO BEDTIME [facility] Stop: 10/08/19 23:59 Last Admin: 10/08/19 00:38 Dose: 25 mg Lamotrigine (Lamotrigine) 25 mg PO BID [facility] Melatonin (Melatonin) 9 mg PO BEDTIME [facility] Last Admin: 10/07/19 23:16 Dose: 9 mg Methylprednisolone Sodium Succinate (Solu-Medrol) 40 mg IVPUSH Q8H [facility] Last Admin: 10/08/19 06:52 Dose: 40 mg Oseltamivir Phosphate (Tamiflu) 30 mg PO BID [facility] Last Admin: 10/08/19 08:33 Dose: 30 mg Sertraline HCl (Zoloft) 25 mg PO DAILY [facility] Last Admin: 10/08/19 08:33 Dose: 25 mg Discontinued Medications Acetaminophen (Tylenol) 650 mg PO ONETIME ONE Stop: 10/07/19 18:23 Last Admin: 10/07/19 18:34 Dose: 650 mg Hydromorphone HCl (Dilaudid) 0.25 mg IVPUSH ONETIME ONE Stop: 10/07/19 18:23 Last Admin: 10/07/19 18:33 Dose: 0.25 mg Hydromorphone HCl (Dilaudid) 0.5 mg IVPUSH ONETIME ONE Stop: 10/07/19 19:53 Last Admin: 10/07/19 20:24 Dose: 0.5 mg Dextrose/Sodium Chloride (Dextrose 5%-Normal Saline) 1,000 mls @ 999 mls/hr IV ASDIRECTED [facility] Last Admin: 10/07/19 20:35 Dose: 999 mls/hr Azithromycin 500 mg/ Sodium (Chloride) 250 mls @ 250 mls/hr IV ONETIME ONE Stop: 10/07/19 20:32 Last Admin: 10/07/19 20:40 Dose: 250 mls/hr Ceftriaxone Sodium 2 gm/ (Sodium Chloride) 100 mls @ 200 mls/hr IV ONETIME ONE Stop: 10/07/19 19:56 Last Admin: 10/07/19 20:15 Dose: 200 mls/hr Potassium Chloride/Dextrose/Sod Cl (D5 Ns With 20 Meq Kcl) 1,000 mls @ 125 mls/ hr IV ASDIRECTED [facility] Magnesium Sulfate 2 gm/ Premix 50 mls @ 25 mls/hr IV ONETIME ONE Stop: 10/08/19 00:37 Last Admin: 10/07/19 23:16 Dose: 25 mls/hr Magnesium Hydroxide (Milk Of Magnesia) 30 ml PO ONETIME ONE Stop: 10/08/19 08:14 Last Admin: 10/08/19 08:38 Dose: Not Given Miscellaneous Information (Remove Patch) 1 ea TRDERM DAILY [facility] Nicotine (Habitrol) 21 mg TRDERM ONETIME ONE Stop: 10/07/19 22:34 Last Admin: 10/07/19 23:21 Dose: Not Given Nicotine (Habitrol) 21 mg TRDERM DAILY [facility] Ondansetron HCl (Zofran) 4 mg IVPUSH ONETIME ONE Stop: 10/07/19 18:23 Last Admin: 10/07/19 18:34 Dose: 4 mg Oseltamivir Phosphate (Tamiflu) 75 mg PO BID [facility] Last Admin: 10/08/19 00:01 Dose: Not Given Polyethylene Glycol (Miralax) 17 gm PO ONETIME ONE Stop: 10/08/19 08:46 Last Admin: 10/08/19 08:48 Dose: 17 gm - Exam Quality Assessment: Supplemental Oxygen General: Alert, Oriented HEENT: Pupils Equal, Mucous Membr. Moist/[place] Neck: Supple Lungs: Normal Respiratory Effort, Rhonchi (Bibasilar) Cardiovascular: Regular Rate, Regular Rhythm GI/Abdominal Exam: Normal Bowel Sounds, Soft, No Organomegaly, No Distention, No Abnormal Bruit, No Mass, Tender (Mild epigastric and right upper quadrant tenderness) Extremities: Normal Inspection, Normal Range of Motion, Non-Tender, No Pedal Edema Skin: Warm, Dry, Intact Psy/Mental Status: Alert, Normal Affect, Normal Mood Sepsis Event Note - Evaluation Sepsis Screening Result: No Definite Risk - Focused Exam Vital Signs: Vital Signs Temp Pulse Resp BP Pulse Ox 10/08/19 12:52 97.3 F 56 L 16 93/52 L 99 10/08/19 08:10 97.9 F 58 L 20 103/44 L 99 10/08/19 05:10 61 91/48 L 99 10/08/19 05:04 97.9 F 58 L 18 86/54 L 98 Date Exam was Performed: 10/08/19 Time Exam was Performed: 13:48 - Problem List Review Problem List Initiated/Reviewed/Updated: Yes - My Orders Last 24 Hours: My Active Orders 10/07/19 21:57 Up ad Destiny [RC] ASDIRECTED Acetaminophen [Tylenol] 650 mg PO Q4H PRN Acetaminophen/HYDROcodone [[place] 325-5 MG] 1 tab PO Q4H PRN Albuterol [Proventil Neb Soln] 2.5 mg NEB Q2H PRN Albuterol/Ipratropium [DuoNeb 3.0-0.5 MG/3 ML] 3 ml NEB Q4H PRN Resuscitation Status Routine 10/07/19 21:58 Oxygen Therapy [RC] PRN VTE/DVT Education [RC] PER UNIT ROUTINE Vital Signs [RC] Q4H 10/07/19 22:02 RT Aerosol Therapy [RC] ASDIRECTED 10/07/19 22:30 Melatonin 9 mg PO BEDTIME 10/07/19 22:35 RESPIRATORY PANEL Routine 10/07/19 23:00 methylPREDNISolone Sod Succ [Solu-MEDROL] 40 mg IVPUSH Q8H 10/07/19 23:24 STREP PNEUMONIAE ANTIGEN [MREF] Routine 10/07/19 23:45 Oseltamivir [Tamiflu] 30 mg PO BID 10/08/19 00:30 lamoTRIgine 25 mg PO BEDTIME 10/08/19 09:00 Enoxaparin [Lovenox] 40 mg SUBCUT DAILY Sertraline [Zoloft] 25 mg PO DAILY 10/08/19 20:00 cefTRIAXone [Rocephin] 1 gm Sodium Chloride 0.9% [Normal Saline] 100 ml IV Q24H 10/08/19 21:00 Azithromycin [Zithromax] 250 mg Sodium Chloride 0.9% [Normal Saline] 250 ml IV Q24H 10/08/19 Breakfast Regular Diet [DIET] 10/09/19 05:11 C-REACTIVE PROTEIN [CHEM] AM CBC WITH AUTO DIFF [HEME] AM COMPREHENSIVE METABOLIC PN,CMP [CHEM] AM MAGNESIUM [CHEM] AM 10/09/19 09:00 lamoTRIgine 25 mg PO BID - Plan Plan:: Assessment * Right lower lobe pneumonia/metastatic lung disease with mass in the right lung base * Rocephin and azithromycin * Chest x-ray suggestive for increasing size of the mass versus secondary infiltrate. * WBC 19.6, fever 103.3, lactic acid 1.1, C-reactive protein 14.3 * Right lower chest/upper abdomen pain - improved * COPD exacerbation * Worsening cough - improved * Chest x-ray consistent with emphysematous changes * Hypomagnesemia - 2.6 - resolved * Seizure disorder * Recently switched to Lamictal and titrating up * Last seizure May, seizure disorder diagnosed in the * Depression/anxiety * On sertraline * Trazodone at night, held secondary to interaction with Zithromax Plan * Admit to medical floor * Continue Rocephin and azithromycin * Albuterol nebs every 2 hours as needed wheeze * DuoNeb every 6 hours as needed wheeze * Solu-Medrol 40 mg every 8 hours * Lamictal 25 mg in the evening for 2 days then 25 mg twice daily * [place] and Tylenol for pain * Melatonin for insomnia * Respiratory panel, strep pneumonia antigen, blood cultures * VTE prophylaxis with Lovenox * CODE STATUS: Full code * Length of stay anticipated 3 to 4 days total
[2019-10-08] MEDS ORDERED: cefTRIAXone 1 GM in Sodium Chloride 0.9% 100 ML IV SCH (20:00)
[2019-10-08] MEDS: Melatonin 3 MG Tab PO SCH (20:42)
[2019-10-08] MEDS ORDERED: Azithromycin 250 MG in Sodium Chloride 0.9% 250 ML IV SCH (21:00)
[2019-10-09 04:47] LABS: BORDETELLA PARAPERT IS1001 Not Detected (Not Detected)
[2019-10-09] MEDS: methylPREDNISolone Sodium Succinate 40 MG/1 ML SDV IVPUSH SCH (06:29)
[2019-10-09] MEDS: Sertraline 25 MG Tab PO SCH (08:37)
[2019-10-09] MEDS: Oseltamivir 30 MG Cap PO SCH (08:37)
[2019-10-09] MEDS: Enoxaparin 40 MG/0.4 ML Syringe SUBCUT SCH (08:41)
[2019-10-09] MEDS ORDERED: Sennosides 8.6 MG Tab PO SCH (09:45)
--- NOTE | 2019-10-09 11:37 | PCM.DCSUM1 ---
Discharge Summary - Hospital Course HPI Initial Comments: 54-year-old female with history of metastatic lung cancer to the liver diagnosed late July presents to the emergency room with symptoms of upper respiratory tract infection and fever. Patient had a fever of 103.3 with dry cough and runny nose. She states that she has a mass in her liver that was biopsied and a mass in her lung. She stopped smoking approximately 9 days ago. Patient has not had a PET scan or chemotherapy. Patient received Pneumovax a couple of weeks ago and influenza vaccine a couple months ago. She does complain of right-sided upper abdominal pain. Chest x-ray showed a increasing masslike density within the right lung base suspicious for worsening neoplasm. Emphysematous change. Labs: WBC 19.86, hemoglobin 10.0 (13.1 on 08/16/2019), platelet count 615, sodium 132, potassium 3.6, chloride 95, anion gap 14.6, BUN 8, creatinine 0.7, lactic acid 1.1, GGT 218, magnesium 1.7. Patient given Rocephin and azithromycin in the emergency room. Patient also has a history of seizure disorder. She states that she developed seizures in the and her last seizure was in May. Her neurologist recently took her off of carbamazepine and has started her on Lamictal. Patient is currently on only 25 mg a day and will increase it to twice a day in 2 days. Diagnosis: Stroke: No - Discharge Data Discharge Date: 10/09/19 Discharge Disposition: Home, Self-Care 01 Condition: Good - Referral to Home Health Primary Care Physician: Ping Tamez MD - Patient Summary/Data Hospital Course: Patient was admitted with possible pneumonia. She has a history of metastatic lung disease and due to x-ray suggesting increased size of her mass she was treated with Rocephin and azithromycin for possible pneumonia. Patient also had some mild wheezing on exam consistent with a COPD exacerbation. Patient did well with IV steroids, DuoNeb, albuterol, and antibiotics. Respiratory panel was ordered and it was positive for RSV. Patient was sent home on day 2 on oral steroids and azithromycin for an exacerbation of COPD. - Patient Instructions Diet: Usual Diet as Tolerated Driving: May Drive Today Showering/Bathing: May Shower Notify Provider of: Fever Other/Special Instructions: Follow up with PCP in 1 week. - Discharge Plan *PRESCRIPTION DRUG MONITORING PROGRAM REVIEWED*: Not Applicable *COPY OF PRESCRIPTION DRUG MONITORING REPORT IN PATIENT RUFINO: Not Applicable Prescriptions/Med Rec: Azithromycin 250 mg PO DAILY #3 tablet predniSONE [Prednisone] 40 mg PO DAILY #6 tablet Home Medications: Home Meds traZODone HCl [Trazodone HCl] 150 mg PO BEDTIME 05/19/18 [History] Sertraline [Zoloft] 25 mg PO DAILY 08/14/19 [History] Albuterol Sulfate [Proair Hfa] 2 inh INH Q4HR PRN 10/07/19 [History] lamoTRIgine 25 mg PO DAILY 10/07/19 [History] Azithromycin 250 mg PO DAILY #3 tablet 10/09/19 [Rx] lamoTRIgine 25 mg PO BID tab.chew 10/09/19 [Rx] predniSONE [Prednisone] 40 mg PO DAILY #6 tablet 10/09/19 [Rx] Patient Handouts: Steps to Quit Smoking, [id number], Sepsis, Adult Forms: ED Department Discharge Referrals: Ping Tamez MD [Primary Care Provider] - 10/16/19 12:45 pm (Please follow up with your primary care provider on ) - Discharge Summary/Plan Comment DC Time >30 min.: Yes Discharge Summary/Plan Comment: Discharge home with prednisone 40 mg daily x3 days and azithromycin 2050 mg daily x3 days. Follow-up with primary care provider and oncologist. - General Info Date of Service: 10/09/19 Admission Dx/Problem (Free Text: Admission Diagnosis/Problem Admission Diagnosis/Problem Pneumonia Subjective Update: Off oxygen and feeling much better. Functional Status: Reports: Pain Controlled - Review of Systems General: Reports: No Symptoms HEENT: Reports: No Symptoms Pulmonary: Reports: Cough Cardiovascular: Reports: No Symptoms Gastrointestinal: Reports: No Symptoms - Patient Data Vitals - Most Recent: Last Vital Signs Temp 97.7 F 10/09/19 08:46 Pulse 61 10/09/19 08:46 Resp 10 L 10/09/19 08:46 BP 100/54 L 10/09/19 08:46 Pulse Ox 98 10/09/19 08:46 Weight - Most Recent: 103 lb 1.6 oz I&O - Last 24 hours: Intake & Output 10/08/19 10/09/19 10/09/19 22:59 06:59 14:59 Intake Total 1340 830 240 Output Total 700 525 Balance 640 305 240 Lab Results - Last 24 hrs: Laboratory Results - last 24 hr 10/07/19 10/09/19 10/09/19 Range/Units 22:35 05:00 05:00 WBC 22.02 H (3.98-10.04) K/mm3 RBC 3.95 L (3.98-5.22) M/mm3 Hgb 10.5 L (11.2-15.7) gm/dl Hct 34.6 (34.1-44.9) % MCV 87.6 (79.4-94.8) fl MCH 26.6 (25.6-32.2) pg MCHC 30.3 L (32.2-35.5) g/dl RDW Std Deviation 42.2 (36.4-46.3) fL Plt Count 682 H D (182-369) K/mm3 MPV 9.5 (9.4-12.3) fl Neut % (Auto) 89.5 H (34.0-71.1) % Lymph % (Auto) 6.4 L (19.3-51.7) % [place] % (Auto) 3.7 L (4.7-12.5) % Eos % (Auto) 0 L (0.7-5.8) Baso % (Auto) 0.1 (0.1-1.2) % Neut # (Auto) 19.72 H (1.56-6.13) K/mm3 Lymph # (Auto) 1.40 (1.18-3.74) K/mm3 [place] # (Auto) 0.81 H (0.24-0.36) K/mm3 Eos # (Auto) 0.00 L (0.04-0.36) K/mm3 Baso # (Auto) 0.02 (0.01-0.08) K/mm3 Manual Slide Review Abnormal smear Sodium 140 (136-145) mEq/L Potassium 4.3 (3.5-5.1) mEq/L Chloride 103 (98-107) mEq/L Carbon Dioxide 30 (21-32) mEq/L Anion Gap 11.3 (5-15) BUN 9 (7-18) mg/dL Creatinine 0.6 (0.55-1.02) mg/dL Est Cr Clr Drug Dosing 79.13 mL/min Estimated GFR (MDRD) > 60 (>60) mL/min BUN/Creatinine Ratio 15.0 (14-18) Glucose 135 H (74-106) mg/dL Calcium 9.6 (8.5-10.1) mg/dL Magnesium 2.1 (1.8-2.4) mg/dl Total Bilirubin 0.1 L (0.2-1.0) mg/dL AST 12 L (15-37) U/L ALT 14 (14-59) U/L Alkaline Phosphatase 127 H (46-116) U/L C-Reactive Protein 7.9 H* (<1.0) mg/dL Total Protein 7.3 (6.4-8.2) g/dl Albumin 2.2 L (3.4-5.0) g/dl Globulin 5.1 gm/dL Albumin/Globulin Ratio 0.4 L (1-2) Adenovirus (PCR) Not detected (Not Detected) B. pertussis DNA (PCR) Not detected (Not Detected) B.parapertussis DNA PCR Not detected (Not Detected) C. pneumoniae DNA (PCR) Not detected (Not Detected) Coronavirus (PCR) Not detected (Not Detected) Human Metapneumovir PCR Not detected (Not Detected) Influenza A (RT-PCR) Not detected (Not Detected) Influenza B (RT-PCR) Not detected (Not Detected) M. pneumoniae (PCR) Not detected (Not Detected) Parainfluen 1,2,3,4 PCR Not detected (Not Detected) RSV (PCR) Detected H (Not Detected) Entero/Rhino (PCR) Not detected (Not Detected) TYREE Results - Last 24 hrs: Microbiology 10/07/19 18:45 Aerobic Blood Culture - Preliminary Blood - Venous - Lab Draw NO GROWTH AFTER 1 DAY Anaerobic Blood Culture - Preliminary NO GROWTH AFTER 1 DAY 10/07/19 18:35 Aerobic Blood Culture - Preliminary Blood - Venous NO GROWTH AFTER 1 DAY Anaerobic Blood Culture - Preliminary NO GROWTH AFTER 1 DAY Med Orders - Current: Current Medications Acetaminophen (Tylenol) 650 mg PO Q4H PRN PRN Reason: Pain (Mild 1-3)/fever Last Admin: 10/08/19 15:30 Dose: 650 mg Hydrocodone Bitart/Acetaminophen ([place] 325-5 Mg) 1 tab PO Q4H PRN PRN Reason: Pain (moderate 4-6) Last Admin: 10/08/19 10:56 Dose: 1 tab Albuterol (Proventil Neb Soln) 2.5 mg NEB Q2H PRN PRN Reason: Shortness Of Breath/wheezing Albuterol/Ipratropium (Duoneb 3.0-0.5 Mg/3 Ml) 3 ml NEB Q4H PRN PRN Reason: Shortness Of Breath/wheezing Enoxaparin Sodium (Lovenox) 40 mg SUBCUT DAILY [facility] Last Admin: 10/09/19 08:41 Dose: 40 mg Azithromycin 250 mg/ Sodium (Chloride) 250 mls @ 250 mls/hr IV Q24H [facility] Stop: 10/11/19 21:59 Last Admin: 10/08/19 21:25 Dose: 250 mls/hr Ceftriaxone Sodium 1 gm/ (Sodium Chloride) 100 mls @ 200 mls/hr IV Q24H [facility] Last Admin: 10/08/19 20:42 Dose: 200 mls/hr Lamotrigine (Lamotrigine) 25 mg PO BID [facility] Last Admin: 10/09/19 08:37 Dose: 25 mg Melatonin (Melatonin) 9 mg PO BEDTIME [facility] Last Admin: 10/08/19 20:42 Dose: 9 mg Methylprednisolone Sodium Succinate (Solu-Medrol) 40 mg IVPUSH Q8H [facility] Last Admin: 10/09/19 06:29 Dose: 40 mg Senna (Senna) 17.2 mg PO BID [facility] Stop: 10/09/19 21:01 Last Admin: 10/09/19 11:08 Dose: 17.2 mg Sertraline HCl (Zoloft) 25 mg PO DAILY [facility] Last Admin: 10/09/19 08:37 Dose: 25 mg Discontinued Medications Acetaminophen (Tylenol) 650 mg PO ONETIME ONE Stop: 10/07/19 18:23 Last Admin: 10/07/19 18:34 Dose: 650 mg Hydromorphone HCl (Dilaudid) 0.25 mg IVPUSH ONETIME ONE Stop: 10/07/19 18:23 Last Admin: 10/07/19 18:33 Dose: 0.25 mg Hydromorphone HCl (Dilaudid) 0.5 mg IVPUSH ONETIME ONE Stop: 10/07/19 19:53 Last Admin: 10/07/19 20:24 Dose: 0.5 mg Dextrose/Sodium Chloride (Dextrose 5%-Normal Saline) 1,000 mls @ 999 mls/hr IV ASDIRECTED [facility] Last Admin: 10/07/19 20:35 Dose: 999 mls/hr Azithromycin 500 mg/ Sodium (Chloride) 250 mls @ 250 mls/hr IV ONETIME ONE Stop: 10/07/19 20:32 Last Admin: 10/07/19 20:40 Dose: 250 mls/hr Ceftriaxone Sodium 2 gm/ (Sodium Chloride) 100 mls @ 200 mls/hr IV ONETIME ONE Stop: 10/07/19 19:56 Last Admin: 10/07/19 20:15 Dose: 200 mls/hr Potassium Chloride/Dextrose/Sod Cl (D5 Ns With 20 Meq Kcl) 1,000 mls @ 125 mls/ hr IV ASDIRECTED [facility] Magnesium Sulfate 2 gm/ Premix 50 mls @ 25 mls/hr IV ONETIME ONE Stop: 10/08/19 00:37 Last Admin: 10/07/19 23:16 Dose: 25 mls/hr Lamotrigine (Lamotrigine) 25 mg PO BEDTIME [facility] Stop: 10/08/19 23:59 Last Admin: 10/08/19 20:41 Dose: 25 mg Magnesium Hydroxide (Milk Of Magnesia) 30 ml PO ONETIME ONE Stop: 10/08/19 08:14 Last Admin: 10/08/19 08:38 Dose: Not Given Miscellaneous Information (Remove Patch) 1 ea TRDERM DAILY [facility] Nicotine (Habitrol) 21 mg TRDERM ONETIME ONE Stop: 10/07/19 22:34 Last Admin: 10/07/19 23:21 Dose: Not Given Nicotine (Habitrol) 21 mg TRDERM DAILY [facility] Ondansetron HCl (Zofran) 4 mg IVPUSH ONETIME ONE Stop: 10/07/19 18:23 Last Admin: 10/07/19 18:34 Dose: 4 mg Oseltamivir Phosphate (Tamiflu) 75 mg PO BID [facility] Last Admin: 10/08/19 00:01 Dose: Not Given Oseltamivir Phosphate (Tamiflu) 30 mg PO BID [facility] Last Admin: 10/09/19 08:37 Dose: 30 mg Polyethylene Glycol (Miralax) 17 gm PO ONETIME ONE Stop: 10/08/19 08:46 Last Admin: 10/08/19 08:48 Dose: 17 gm - Exam General: Reports: Alert, Oriented HEENT: Reports: Pupils Equal, Mucous Membr. Moist/[place] Neck: Reports: Supple Lungs: Reports: Clear to Auscultation, Normal Respiratory Effort Cardiovascular: Reports: Regular Rate Extremities: Normal Inspection, Normal Range of Motion, Non-Tender, No Pedal Edema Skin: Reports: Warm, Dry, Intact
[2019-10-09] MEDS: Acetaminophen/HYDROcodone 325-5 MG Tab PO PRN (12:21)
== END 2019-10-09 13:57 | disposition home or self-care (01) | DRG 194 ==
LOC: JD.ED 18:03 → JD.MS 19:53
PROVIDERS: ADMIT Family Medicine; ATTEND Family Medicine
DX: J18.9 Pneumonia, unspecified organism (principal); C34.91 Malignant neoplasm of unspecified part of right bronchus or lung; C78.7 Secondary malignant neoplasm of liver and intrahepatic bile duct; J43.9 Emphysema, unspecified; H54.7 Unspecified visual loss; J44.9 Chronic obstructive pulmonary disease, unspecified; Z86.19 Personal history of other infectious and parasitic diseases; Z87.440 Personal history of urinary (tract) infections; M06.9 Rheumatoid arthritis, unspecified; M41.9 Scoliosis, unspecified; E83.42 Hypomagnesemia; G40.909 Epilepsy, unspecified, not intractable, without status epilepticus; G47.00 Insomnia, unspecified; G43.909 Migraine, unspecified, not intractable, without status migrainosus; Z90.711 Acquired absence of uterus with remaining cervical stump; F41.9 Anxiety disorder, unspecified; F32.9 Major depressive disorder, single episode, unspecified; Z85.05 Personal history of malignant neoplasm of liver; Z90.49 Acquired absence of other specified parts of digestive tract; Z87.891 Personal history of nicotine dependence; Z98.890 Other specified postprocedural states; Z88.8 Allergy status to other drugs, medicaments and biological substances; Z79.51 Long term (current) use of inhaled steroids; Z79.899 Other long term (current) drug therapy; Z99.81 Dependence on supplemental oxygen; Z90.710 Acquired absence of both cervix and uterus
CPT/HCPCS: 36415; 71045; 80053; 82977; 83605; 83690; 83735; 83880; 85007; 85027; 85610; 85730; 86140; 87040 ×2; 87804 ×2; A9270; J1170; J2405; J7042; 85025; 87486; 87581; 87632; 87798; 87899; 96361; 96374; 96375; 99222; 99231; 99239; 99285; 99285-25; J0456; J0696; J1650; J2920; J3475; J7050

== ENCOUNTER 2019-10-10 10:47 | Emergency (ER) | payer MEDICAID ==
[2019-10-10] MEDS ORDERED: HYDROmorphone 1 MG/ML Syringe IM ONE (11:19)
--- NOTE | 2019-10-10 11:24 | EDM.PDOC ---
ED HPI GENERAL MEDICAL PROBLEM - General Chief Complaint: Back Pain or Injury Stated Complaint: BACK PAIN Time Seen by Provider: 10/10/19 11:08 Source of Information: Reports: Patient History Limitations: Reports: No Limitations - History of Present Illness INITIAL COMMENTS - FREE TEXT/NARRATIVE: Patient is a 54-year-old female who presents with complaints of low back pain that started last night. She denies any known injury to the area. She was just discharged from the hospital yesterday with pneumonia and RSV. Patient also has a diagnosis of lung cancer with metastases to the liver. Her oncologist is Dr. Villar and primary care provider is Dr. Aparna Tamez. She has no history of low back pain and has no known metastases to the bone. Patient is scheduled for a PET scan and MRI in [place] tomorrow. She denies any numbness or tingling in her extremities. No bowel or bladder dysfunction. Lower Back Pain Score (Numeric/FACES): 9 - Related Data Allergies Allergy/AdvReac Type Severity Reaction Status Date / Time ketorolac [From Toradol] AdvReac Vomiting Verified 10/10/19 11:02 Home Meds: Home Meds traZODone HCl [Trazodone HCl] 150 mg PO BEDTIME 05/19/18 [History] Sertraline [Zoloft] 25 mg PO DAILY 08/14/19 [History] Albuterol Sulfate [Proair Hfa] 2 inh INH Q4HR PRN 10/07/19 [History] lamoTRIgine 25 mg PO DAILY 10/07/19 [History] Azithromycin 250 mg PO DAILY #3 tablet 10/09/19 [Rx] lamoTRIgine 25 mg PO BID tab.chew 10/09/19 [Rx] predniSONE [Prednisone] 40 mg PO DAILY #6 tablet 10/09/19 [Rx] Acetaminophen/oxyCODONE [Percocet 325-5 MG] 1 each PO Q4H PRN #10 tab 10/10/19 [ Rx] Past Medical History HEENT History: Reports: Impaired Vision, Other (See Below) Other HEENT History: wears glasses Respiratory History: Reports: COPD, Other (See Below) Other Respiratory History: emphysema and lung cancer Gastrointestinal History: Reports: Hepatitis Other Gastrointestinal History: "cured for hepatitis C" Genitourinary History: Reports: UTI, Recurrent FOUNDATION ENGINEER History: Reports: Other FOUNDATION ENGINEER History: partial hysterectomy, vaginal x 3 deliveries Musculoskeletal History: Reports: RA Other Musculoskeletal History: bone on bone on both knees, and scolerosis of the spine Neurological History: Reports: Migraines, Seizure Psychiatric History: Reports: Anxiety, Depression, Suicide Attempt Other Immunologic History: Hep C- cured? Oncologic (Cancer) History: Reports: Liver, Lung, Metastatic Dermatologic History: Reports: Other (See Below) Other Dermatologic History: dry skin - Infectious Disease History Infectious Disease History: Reports: Chicken Pox, Hepatitis C Other Infectious Disease History: had treatment and now is clear since November. - Past Surgical History HEENT Surgical History: Reports: Oral Surgery Other HEENT Surgeries/Procedures: upper dentures Respiratory Surgical History: Reports: None GI Surgical History: Reports: Appendectomy, Cholecystectomy Female Surgical History: Reports: Hysterectomy Neurological Surgical History: Reports: None Musculoskeletal Surgical History: Reports: None Oncologic Surgical History: Reports: None Social & Family History - Family History Family Medical History: Noncontributory Cardiac: Reports: CAD Oncologic: Reports: Breast - Tobacco Use Smoking Status *Q: Current Every Day Smoker Years of Tobacco use: 22 Packs/Tins Daily: 1 Used Tobacco, but Quit: Yes Month/Year Tobacco Last Used: 11days - Caffeine Use Caffeine Use: Reports: Coffee Other Caffeine Use: 2 cups a day sometimes 3 - Recreational Drug Use Recreational Drug Use: No - Living Situation & Occupation Living situation: Reports: , with Family (Daughter, her 2 kids, and her boyfriend) Occupation: Disabled ED ROS GENERAL - Review of Systems Review Of Systems: Comprehensive ROS is negative, except as noted in HPI. ED EXAM,LOWER BACK PAIN/INJURY - Physical Exam Exam: See Below Exam Limited By: No Limitations General Appearance: Alert, WD/WN, No Apparent Distress Respiratory/Chest: No Respiratory Distress, Lungs Clear, Normal Breath Sounds, No Accessory Muscle Use, Chest Non-Tender Cardiovascular: Normal Peripheral Pulses, Regular Rate, Rhythm, No Edema, No Gallop, No JVD, No Murmur, No Rub Back Exam: Normal Inspection, Vertebral Tenderness (L1 - S1) Extremities: Normal Inspection, Normal Range of Motion, Non-Tender, No Pedal Edema, Normal Capillary Refill Neurological: Alert, Normal Mood/Affect, Normal Dorsiflexion, CN II-XII Intact, Normal Plantar Flexion, Normal Gait, Normal Reflexes, No Motor/Sensory Deficits , Oriented x 3 Psychiatric: Normal Affect, Normal Mood Skin Exam: Warm, Dry, Intact, Normal Color, No Rash Course - Vital Signs Last Recorded V/S: Last Vital Signs Temp 98.7 F 10/10/19 10:56 Pulse 95 10/10/19 10:56 Resp 20 10/10/19 10:56 BP 112/66 10/10/19 10:56 Pulse Ox 96 10/10/19 10:56 - Orders/Labs/Meds Orders: Active Orders 24 hr Category Date Time Status Lumbar Spine 2 or 3V [CR] Stat Exams 10/10/19 11:18 Taken Meds: Medications Discontinued Medications Generic Name Dose Route Start Last Admin Trade Name Freq PRN Reason Stop Dose Admin Hydromorphone HCl 0.75 mg 10/10/19 11:19 10/10/19 11:25 Dilaudid IM 10/10/19 11:20 0.75 mg ONETIME ONE Administration - Re-Assessments/Exams Free Text/Narrative Re-Assessment/Exam: 10/10/19 11:42 There is no obvious lesions to the vertebrae on x-ray. No signs of compression fracture. Patient has having improvement in her pain after the Dilaudid administration. We will discharge her home with Percocet as needed for pain. Recommend she follow-up with her primary care provider if symptoms continue. Discharge instructions as documented. Departure - Departure Time of Disposition: 11:42 Disposition: Home, Self-Care 01 Condition: Fair Clinical Impression: Back pain Qualifiers: Back pain location: low back pain Chronicity: acute Back pain laterality: midline Sciatica presence: without sciatica Qualified Code(s): M54.5 - Low back pain - Discharge Information *PRESCRIPTION DRUG MONITORING PROGRAM REVIEWED*: Yes *COPY OF PRESCRIPTION DRUG MONITORING REPORT IN PATIENT RUFINO: No Prescriptions: Acetaminophen/oxyCODONE [Percocet 325-5 MG] 1 each PO Q4H PRN #10 tab PRN Reason: Pain Instructions: Acute Back Pain, Adult Referrals: Ping Tamez MD [Primary Care Provider] - Forms: ED Department Discharge Additional Instructions: You were seen in the emergency department today for low back pain. An x-ray of your lumbar spine was done and showed no evidence of fracture or lesions to the vertebrae. While in the ER you received an injection of Dilaudid which you state did improve your pain. Recommend that you use [id number] Tylenol or ibuprofen as needed for pain. For pain not relieved by these methods, a prescription of Percocet has been sent to [facility] in [place]. Use this only as needed. Do not drive after taking this medication as it can be sedating. You may also apply a hot pack to your lower back. If the symptoms persist or fail to improve as expected, I recommend that you follow-up with your primary care provider, or return to the emergency department as needed. Sepsis Event Note - Evaluation Sepsis Screening Result: No Definite Risk - Focused Exam Vital Signs: Vital Signs Temp Pulse Resp BP Pulse Ox 10/10/19 10:56 98.7 F 95 20 112/66 96 Date Exam was Performed: 10/10/19 Time Exam was Performed: 11:41 - My Orders Last 24 Hours: My Active Orders 10/10/19 11:18 Lumbar Spine 2 or 3V [CR] Stat - Assessment/Plan Last 24 Hours: My Active Orders 10/10/19 11:18 Lumbar Spine 2 or 3V [CR] Stat
--- NOTE | 2019-10-10 13:25 | CR ---
Lumbar spine: AP and lateral views of the lumbar spine were obtained. Comparison: No prior lumbar spine imaging. Findings: Mild disc space narrowing is noted at T11-T12 with anterior osteophytes. Mild anterior disc space narrowing at noted at T10-T11. Vertebral body heights and disc spaces within lumbar spine are maintained. Pedicles are intact. Transverse and spinous processes are intact. No subluxation is seen. Vascular calcification is noted within the aorta. Impression: 1. Mild degenerative change within the lower thoracic spine. 2. Two-view lumbar spine study is otherwise unremarkable. Diagnostic code #3 Study was dictated in [place] Standard Time
== END 2019-10-10 11:59 | disposition home or self-care (01) ==
LOC: JD.ED 10:47
DX: M54.5 Low back pain (principal); J43.9 Emphysema, unspecified; F41.9 Anxiety disorder, unspecified; F32.9 Major depressive disorder, single episode, unspecified; R56.9 Unspecified convulsions; F17.210 Nicotine dependence, cigarettes, uncomplicated; Z88.6 Allergy status to analgesic agent; Z79.899 Other long term (current) drug therapy; Z79.52 Long term (current) use of systemic steroids
CPT/HCPCS: 72100; 96372; 99283; J1170

== ENCOUNTER 2019-10-14 16:33 | Inpatient (IN) | payer MEDICAID ==
[2019-10-14] MEDS ORDERED: Sodium Chloride 0.9% 1,000 ML IV ONE (17:19)
[2019-10-14] MEDS ORDERED: Sodium Chloride 0.9% 10 ML Syringe FLUSH PRN (17:19)
--- NOTE | 2019-10-14 17:48 | EDM.PDOC ---
ED HPI GENERAL MEDICAL PROBLEM - General Chief Complaint: Respiratory Problem Stated Complaint: SOB UNABLE TO GET A DEEP BREATH Time Seen by Provider: 10/14/19 17:08 Source of Information: Reports: Patient, Old Records, RN Notes Reviewed History Limitations: Reports: No Limitations - History of Present Illness INITIAL COMMENTS - FREE TEXT/NARRATIVE: Patient is a 54-year-old female who presents to the ED for evaluation of her increasing shortness of breath. Patient relates that she has a recent diagnosis of lung and liver cancer, and was hospitalized in this hospital last week for pneumonia for a few days. Patient states she felt okay after this, but over the last few days, she is having increased weakness, coughing, just cannot catch a deep breath. She relates some nausea, and pains in her chest as well. She does have a fever at time of triage, 101.8 F, and blood pressure was mildly low at 97/76. Patient was seen in the ER just after the hospitalization for back pain as well, and states that she was given some tabs of oxycodone, but has not taken any for pain management. Right Chest Pain Score (Numeric/FACES): 7 - Related Data Allergies Allergy/AdvReac Type Severity Reaction Status Date / Time ketorolac [From Toradol] AdvReac Vomiting Verified 10/10/19 11:02 Home Meds: Home Meds traZODone HCl [Trazodone HCl] 150 mg PO BEDTIME 05/19/18 [History] Sertraline [Zoloft] 25 mg PO DAILY 08/14/19 [History] Albuterol Sulfate [Proair Hfa] 2 inh INH Q4HR PRN 10/07/19 [History] lamoTRIgine 25 mg PO BID tab.chew 10/09/19 [Rx] Past Medical History HEENT History: Reports: Impaired Vision, Other (See Below) Other HEENT History: wears glasses Respiratory History: Reports: COPD (emphysema), Other (See Below) Other Respiratory History: lung cancer Gastrointestinal History: Reports: Hepatitis Other Gastrointestinal History: "cured for hepatitis C" Genitourinary History: Reports: UTI, Recurrent FISHER LOBSTER 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 Oncologic (Cancer) History: Reports: Liver, Lung, Metastatic Dermatologic History: Reports: Other (See Below) Other Dermatologic History: dry skin - Infectious Disease History Infectious Disease History: Reports: Chicken Pox, Hepatitis C Other Infectious Disease History: had treatment and now is clear since November. - Past Surgical History HEENT Surgical History: Reports: Oral Surgery Other HEENT Surgeries/Procedures: upper dentures GI Surgical History: Reports: Appendectomy, Cholecystectomy Female Surgical History: Reports: Hysterectomy Social & Family History - Family History Family Medical History: Noncontributory Cardiac: Reports: CAD Oncologic: Reports: Breast - Caffeine Use Caffeine Use: Reports: Coffee Other Caffeine Use: 2 cups a day sometimes 3 - Living Situation & Occupation Living situation: Reports: , with Family (Daughter, her 2 kids, and her boyfriend) Occupation: Disabled ED ROS GENERAL - Review of Systems Review Of Systems: See Below Constitutional: Reports: Fever, Chills, Malaise, Decreased Appetite Respiratory: Reports: Shortness of Breath. Denies: Cough Cardiovascular: Reports: Chest Pain GI/Abdominal: Reports: Abdominal Pain, Nausea. Denies: Constipation, Diarrhea, Vomiting Neurological: Denies: Headache ED EXAM, GENERAL - Physical Exam Exam: See Below Exam Limited By: No Limitations General Appearance: Alert, WD/WN, No Apparent Distress, Cachetic Eye Exam: Bilateral Eye: EOMI, Normal Inspection, PERRL Ears: Normal External Exam Nose: Normal Inspection Throat/Mouth: Normal Inspection, Normal Lips, Normal Teeth, Normal Gums, Normal Oropharynx, Normal Voice, No Airway Compromise Head: Atraumatic, Normocephalic Neck: Normal Inspection Respiratory/Chest: No Respiratory Distress, Lungs Clear, Normal Breath Sounds, No Accessory Muscle Use, Chest Non-Tender Cardiovascular: Normal Peripheral Pulses, Regular Rate, Rhythm, No Edema, No Murmur Peripheral Pulses: 3+: Radial (L), Radial (R) GI/Abdominal: Normal Bowel Sounds, Soft, No Distention, No Mass, Tender (mild generlized tenderness) Extremities: Normal Inspection, Normal Capillary Refill Neurological: Alert, Oriented, Normal Cognition, No Motor/Sensory Deficits Psychiatric: Normal Affect, Normal Mood Skin Exam: Warm, Dry, Intact, Normal Color, No Rash EKG INTERPRETATION EKG Date: 10/14/19 Time: 18:55 Rhythm: NSR Rate (Beats/Min): 92 [place]: Normal P-Wave: Present QRS: Normal ST-T: Normal QT: Normal EKG Interpretation Comments: No acute ischemic changes noted reviewed by myself and Dr. Sanders. Course - Vital Signs Last Recorded V/S: Last Vital Signs Temp 100 F 10/14/19 20:21 Pulse 75 10/14/19 20:21 Resp 16 10/14/19 20:21 BP 104/56 L 10/14/19 20:21 Pulse Ox 95 10/14/19 20:21 - Orders/Labs/Meds Orders: Active Orders 24 hr Category Date Time Status CULTURE BLOOD [BC] Stat Lab 10/14/19 17:45 Received CULTURE BLOOD [BC] Stat Lab 10/14/19 17:50 Received CULTURE URINE [RM] Routine Lab 10/14/19 18:10 Received Sodium Chloride 0.9% [Saline Flush] Med 10/14/19 17:19 Active 10 ml FLUSH ASDIRECTED PRN Blood Culture x2 Reflex Set [OM.PC] Stat Oth 10/14/19 17:19 Ordered Saline Lock Insert [OM.PC] Stat Oth 10/14/19 17:19 Ordered Medication Orders Lactated Ringer's (Ringers, Lactated) 1,000 mls @ 50 mls/hr IV ASDIRECTED IVONNE Sodium Chloride (Saline Flush) 10 ml FLUSH ASDIRECTED PRN PRN Reason: Keep Vein Open Last Admin: 10/14/19 17:46 Dose: 10 ml Labs: Laboratory Tests 10/14/19 10/14/19 10/14/19 Range/Units 17:45 17:45 17:45 WBC 24.91 H (3.98-10.04) K/mm3 RBC 4.08 (3.98-5.22) M/mm3 Hgb 10.9 L (11.2-15.7) gm/dl Hct 34.2 (34.1-44.9) % MCV 83.8 D (79.4-94.8) fl MCH 26.7 (25.6-32.2) pg MCHC 31.9 L (32.2-35.5) g/dl RDW Std Deviation 42.1 (36.4-46.3) fL Plt Count 695 H (182-369) K/mm3 MPV 8.9 L (9.4-12.3) fl Neutrophils % (Manual) 88 H (40-60) % Band Neutrophils % 0 (0-10) % Lymphocytes % (Manual) 5 L (20-40) % Atypical Lymphs % 0 % Monocytes % (Manual) 7 (2-10) % Eosinophils % (Manual) 0 L (0.7-5.8) % Basophils % (Manual) 0 L (0.1-1.2) Platelet Estimate Increased Plt Morphology Comment See note Macrocytosis 1+ slight Spherocytes Few Ovalocytes 1+ slight RBC Morph Comment Not Reportable PT 11.5 (9.7-12.0) SECONDS INR 1.06 Sodium (136-145) mEq/L Potassium (3.5-5.1) mEq/L Chloride (98-107) mEq/L Carbon Dioxide (21-32) mEq/L Anion Gap (5-15) BUN (7-18) mg/dL Creatinine (0.55-1.02) mg/dL Est Cr Clr Drug Dosing mL/min Estimated GFR (MDRD) (>60) mL/min BUN/Creatinine Ratio (14-18) Glucose (74-106) mg/dL Lactic Acid 1.4 (0.4-2.0) mmol/L Calcium (8.5-10.1) mg/dL Total Bilirubin (0.2-1.0) mg/dL AST (15-37) U/L ALT (14-59) U/L Alkaline Phosphatase (46-116) U/L Troponin I (0.00-0.056) ng/mL C-Reactive Protein (<1.0) mg/dL Total Protein (6.4-8.2) g/dl Albumin (3.4-5.0) g/dl Globulin gm/dL Albumin/Globulin Ratio (1-2) Urine Color (Yellow) Urine Appearance (Clear) Urine pH (5.0-8.0) Ur Specific [place] (1.005-1.030) Urine Protein (Negative) Urine Glucose (UA) (Negative) Urine Ketones (Negative) Urine Occult Blood (Negative) Urine Nitrite (Negative) Urine Bilirubin (Negative) Urine Urobilinogen (0.2-1.0) Ur Leukocyte Esterase (Negative) Urine RBC (0-5) /hpf Urine WBC (0-5) /hpf Ur Squamous Epith Cells (0-5) /hpf Urine Bacteria (FEW) /hpf Urine Mucus (FEW) /hpf Mycoplasma pneumon IgM (NEGATIVE) 10/14/19 10/14/19 10/14/19 Range/Units 17:50 17:50 17:50 WBC (3.98-10.04) K/mm3 RBC (3.98-5.22) M/mm3 Hgb (11.2-15.7) gm/dl Hct (34.1-44.9) % MCV (79.4-94.8) fl MCH (25.6-32.2) pg MCHC (32.2-35.5) g/dl RDW Std Deviation (36.4-46.3) fL Plt Count (182-369) K/mm3 MPV (9.4-12.3) fl Neutrophils % (Manual) (40-60) % Band Neutrophils % (0-10) % Lymphocytes % (Manual) (20-40) % Atypical Lymphs % % Monocytes % (Manual) (2-10) % Eosinophils % (Manual) (0.7-5.8) % Basophils % (Manual) (0.1-1.2) Platelet Estimate Plt Morphology Comment Macrocytosis Spherocytes Ovalocytes RBC Morph Comment PT (9.7-12.0) SECONDS INR Sodium 132 L (136-145) mEq/L Potassium 3.6 (3.5-5.1) mEq/L Chloride 95 L (98-107) mEq/L Carbon Dioxide 25 (21-32) mEq/L Anion Gap 15.6 H (5-15) BUN 8 (7-18) mg/dL Creatinine 0.9 (0.55-1.02) mg/dL Est Cr Clr Drug Dosing 52.19 mL/min Estimated GFR (MDRD) > 60 (>60) mL/min BUN/Creatinine Ratio 8.9 L (14-18) Glucose 113 H (74-106) mg/dL Lactic Acid (0.4-2.0) mmol/L Calcium 9.8 (8.5-10.1) mg/dL Total Bilirubin 0.6 (0.2-1.0) mg/dL AST 12 L (15-37) U/L ALT 14 (14-59) U/L Alkaline Phosphatase 117 H (46-116) U/L Troponin I < 0.017 (0.00-0.056) ng/mL C-Reactive Protein 30.8 H* (<1.0) mg/dL Total Protein 8.3 H (6.4-8.2) g/dl Albumin 2.6 L (3.4-5.0) g/dl Globulin 5.7 gm/dL Albumin/Globulin Ratio 0.5 L (1-2) Urine Color (Yellow) Urine Appearance (Clear) Urine pH (5.0-8.0) Ur Specific [place] (1.005-1.030) Urine Protein (Negative) Urine Glucose (UA) (Negative) Urine Ketones (Negative) Urine Occult Blood (Negative) Urine Nitrite (Negative) Urine Bilirubin (Negative) Urine Urobilinogen (0.2-1.0) Ur Leukocyte Esterase (Negative) Urine RBC (0-5) /hpf Urine WBC (0-5) /hpf Ur Squamous Epith Cells (0-5) /hpf Urine Bacteria (FEW) /hpf Urine Mucus (FEW) /hpf Mycoplasma pneumon IgM Positive H (NEGATIVE) 10/14/19 Range/Units 18:10 WBC (3.98-10.04) K/mm3 RBC (3.98-5.22) M/mm3 Hgb (11.2-15.7) gm/dl Hct (34.1-44.9) % MCV (79.4-94.8) fl MCH (25.6-32.2) pg MCHC (32.2-35.5) g/dl RDW Std Deviation (36.4-46.3) fL Plt Count (182-369) K/mm3 MPV (9.4-12.3) fl Neutrophils % (Manual) (40-60) % Band Neutrophils % (0-10) % Lymphocytes % (Manual) (20-40) % Atypical Lymphs % % Monocytes % (Manual) (2-10) % Eosinophils % (Manual) (0.7-5.8) % Basophils % (Manual) (0.1-1.2) Platelet Estimate Plt Morphology Comment Macrocytosis Spherocytes Ovalocytes RBC Morph Comment PT (9.7-12.0) SECONDS INR Sodium (136-145) mEq/L Potassium (3.5-5.1) mEq/L Chloride (98-107) mEq/L Carbon Dioxide (21-32) mEq/L Anion Gap (5-15) BUN (7-18) mg/dL Creatinine (0.55-1.02) mg/dL Est Cr Clr Drug Dosing mL/min Estimated GFR (MDRD) (>60) mL/min BUN/Creatinine Ratio (14-18) Glucose (74-106) mg/dL Lactic Acid (0.4-2.0) mmol/L Calcium (8.5-10.1) mg/dL Total Bilirubin (0.2-1.0) mg/dL AST (15-37) U/L ALT (14-59) U/L Alkaline Phosphatase (46-116) U/L Troponin I (0.00-0.056) ng/mL C-Reactive Protein (<1.0) mg/dL Total Protein (6.4-8.2) g/dl Albumin (3.4-5.0) g/dl Globulin gm/dL Albumin/Globulin Ratio (1-2) Urine Color Yellow (Yellow) Urine Appearance Slt cloudy H (Clear) Urine pH 8.5 H (5.0-8.0) Ur Specific [place] 1.020 (1.005-1.030) Urine Protein Trace H (Negative) Urine Glucose (UA) Negative (Negative) Urine Ketones Negative (Negative) Urine Occult Blood 1+ H (Negative) Urine Nitrite Negative (Negative) Urine Bilirubin Negative (Negative) Urine Urobilinogen 1.0 (0.2-1.0) Ur Leukocyte Esterase Negative (Negative) Urine RBC 20-30 H (0-5) /hpf Urine WBC 0-5 (0-5) /hpf Ur Squamous Epith Cells 0-5 (0-5) /hpf Urine Bacteria Few (FEW) /hpf Urine Mucus Few (FEW) /hpf Mycoplasma pneumon IgM (NEGATIVE) Meds: Medications Generic Name Dose Route Start Last Admin Trade Name Freq PRN Reason Stop Dose Admin Lactated Ringer's 1,000 mls @ 50 mls/hr 10/14/19 20:45 Ringers, Lactated IV ASDIRECTED IVONNE Sodium Chloride 10 ml 10/14/19 17:19 10/14/19 17:46 Saline Flush FLUSH 10 ml ASDIRECTED PRN Administration Keep Vein Open Discontinued Medications Generic Name Dose Route Start Last Admin Trade Name Rowan PRN Reason Stop Dose Admin Acetaminophen 975 mg 10/14/19 20:46 10/14/19 20:58 Tylenol PO 10/14/19 20:47 975 mg NOW ONE Administration Hydromorphone HCl 0.5 mg 10/14/19 17:49 10/14/19 18:09 Dilaudid IVPUSH 10/14/19 17:50 0.5 mg ONETIME ONE Administration Hydromorphone HCl 0.5 mg 10/14/19 20:06 10/14/19 20:11 Dilaudid IVPUSH 10/14/19 20:07 0.5 mg ONETIME ONE Administration Sodium Chloride 1,000 mls @ 999 mls/hr 10/14/19 17:19 10/14/19 17:46 Normal Saline IV 10/14/19 18:19 999 mls/hr BOLUS ONE Administration Ceftriaxone Sodium 1 gm/ 100 mls @ 200 mls/hr 10/14/19 20:44 10/14/19 20:59 Sodium Chloride IV 10/14/19 21:13 200 mls/hr ONETIME ONE Administration Vancomycin HCl 1 gm/ Sodium 250 mls @ 250 mls/hr 10/14/19 20:43 Chloride IV 10/14/19 21:42 ONETIME ONE Ondansetron HCl 4 mg 10/14/19 17:49 10/14/19 18:09 Zofran IVPUSH 10/14/19 17:50 4 mg ONETIME ONE Administration - Re-Assessments/Exams Free Text/Narrative Re-Assessment/Exam: 10/14/19 17:48 Patient presents to the ED for the evaluation of some increased shortness of breath and a cough. I have ordered chest x-ray, CBC, CMP, EKG, CRP, blood cultures, influenza screen, lactic acid with reflex, PT/INR, UA and IV fluids for initial management. 10/14/19 18:46 Patient's labs have started to return, demonstrate a white blood cell count that is markedly elevated at 24.91, with 88% neutrophils no bands noted. Metabolic panel still pending. PT/INR is okay at this time. Patient's chest x- ray was read as a worsening parenchymal density within the right lower lung. Findings presumably represent worsening neoplasm. Otherwise nothing acute is appreciated on the plain film study. With emphysematous change. 10/14/19 20:44 Patient's course was discussed with she does accept the patient for this time, she did request a few labs to be added, I did do this, she did not states she would like any antibiotics started, but it talked the case over Dr. Sanders and he suggested, Rocephin and a gram of Vanco to start with. I have ordered this at this time. Departure - Departure Time of Disposition: 20:40 Disposition: Refer to Observation Condition: Fair Clinical Impression: SIRS (systemic inflammatory response syndrome) - Discharge Information *PRESCRIPTION DRUG MONITORING PROGRAM REVIEWED*: No *COPY OF PRESCRIPTION DRUG MONITORING REPORT IN PATIENT RUFINO: No Sepsis Event Note - Evaluation Sepsis Screening Result: No Definite Risk - Focused Exam Vital Signs: Vital Signs Temp Pulse Resp BP Pulse Ox 10/14/19 20:21 100 F 75 16 104/56 L 95 10/14/19 16:46 101.8 F H 97 20 97/76 98 Date Exam was Performed: 10/14/19 Time Exam was Performed: 22:01 - My Orders Last 24 Hours: My Active Orders 10/14/19 17:19 Sodium Chloride 0.9% [Saline Flush] 10 ml FLUSH ASDIRECTED PRN Blood Culture x2 Reflex Set [OM.PC] Stat Saline Lock Insert [OM.PC] Stat 10/14/19 17:45 CULTURE BLOOD [BC] Stat 10/14/19 17:50 CULTURE BLOOD [BC] Stat 10/14/19 18:10 CULTURE URINE [RM] Routine - Assessment/Plan Last 24 Hours: My Active Orders 10/14/19 17:19 Sodium Chloride 0.9% [Saline Flush] 10 ml FLUSH ASDIRECTED PRN Blood Culture x2 Reflex Set [OM.PC] Stat Saline Lock Insert [OM.PC] Stat 10/14/19 17:45 CULTURE BLOOD [BC] Stat 10/14/19 17:50 CULTURE BLOOD [BC] Stat 10/14/19 18:10 CULTURE URINE [RM] Routine
[2019-10-14] MEDS ORDERED: HYDROmorphone 0.5 MG/0.5 ML Syringe IVPUSH ONE ×2 (17:49→20:06)
[2019-10-14] MEDS ORDERED: Ondansetron 4 MG/2 ML SDV IVPUSH ONE (17:49)
--- NOTE | 2019-10-14 18:21 | CR ---
Chest: 2 views of the chest were obtained. Comparison: Prior chest x-ray of 08/23/19. Parenchymal density is seen within the superior segment of the right lower lung. This appears slightly more dense than on prior study and may represent continuing increased worsening neoplasm. Lungs otherwise are clear without definite acute parenchymal change being seen on this plain film exam. Heart size and mediastinum are normal. Lungs are hyperinflated compatible with emphysematous change. Impression: 1. Worsening parenchymal density within the right lower lung. Findings presumably represent worsening neoplasm. 2. Nothing acute is otherwise appreciated on plain film study. 3. Emphysematous change. Diagnostic code #9 This report was dictated in [place] Standard Time
[2019-10-14] MEDS ORDERED: cefTRIAXone 1 GM in Sodium Chloride 0.9% 100 ML IV ONE (20:44)
[2019-10-14] MEDS ORDERED: Lactated Ringers 1,000 ML IV SCH (20:45)
[2019-10-14] MEDS ORDERED: Acetaminophen 325 MG Tab PO ONE (20:46)
[2019-10-14] MEDS ORDERED: Trolamine Salicylate/Aloe Vera 10% Crm 85 GM Tube TOP PRN (22:35)
--- NOTE | 2019-10-15 07:33 | PCM.HP.2 ---
H&P History of Present Illness - General Date of Service: 10/15/19 Admit Problem/Dx: Admission Diagnosis/Problem Admission Diagnosis/Problem SIRS without acute organ dysfunction due to infectious process - History of Present Illness Initial Comments - Free Text/Narative: Patient is a 54-year-old female who presents to the ED for evaluation of her increasing shortness of breath. Patient relates that she has a recent diagnosis of lung and liver cancer, and was hospitalized in this hospital last week for pneumonia for a few days. Patient states she felt okay after this, but over the last few days, she is having increased weakness, coughing, just cannot catch a deep breath. She relates some nausea, and pains in her chest as well. She does have a fever at time of triage, 101.8 F, and blood pressure was mildly low at 97/76. Patient was seen in the ER just after the hospitalization for back pain as well, and states that she was given some tabs of oxycodone, but has not taken any for pain management. Right Chest Pain Score (Numeric/FACES): 7 - Related Data Allergies/Adverse Reactions: Allergies Allergy/AdvReac Type Severity Reaction Status Date / Time ketorolac [From Toradol] AdvReac Vomiting Verified 10/10/19 11:02 Home Medications: Home Meds traZODone HCl [Trazodone HCl] 150 mg PO BEDTIME 05/19/18 [History] Sertraline [Zoloft] 25 mg PO DAILY 08/14/19 [History] Albuterol Sulfate [Proair Hfa] 2 inh INH Q4HR PRN 10/07/19 [History] lamoTRIgine 25 mg PO BID tab.chew 10/09/19 [Rx] Past Medical History HEENT History: Reports: Impaired Vision, Other (See Below) Other HEENT History: wears glasses Respiratory History: Reports: COPD, Other (See Below) Other Respiratory History: lung cancer Gastrointestinal History: Reports: Hepatitis Other Gastrointestinal History: "cured for hepatitis C" Genitourinary History: Reports: None 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 Oncologic (Cancer) History: Reports: Liver, Lung, Metastatic Dermatologic History: Reports: Other (See Below) Other Dermatologic History: dry skin - Infectious Disease History Infectious Disease History: Reports: Chicken Pox, Hepatitis C Other Infectious Disease History: had treatment and now is clear since November. - Past Surgical History HEENT Surgical History: Reports: Oral Surgery Other HEENT Surgeries/Procedures: upper dentures Respiratory Surgical History: Reports: None GI Surgical History: Reports: Appendectomy, Cholecystectomy Female Surgical History: Reports: Hysterectomy Neurological Surgical History: Reports: None Musculoskeletal Surgical History: Reports: None Social & Family History - Family History Family Medical History: Noncontributory Cardiac: Reports: CAD Oncologic: Reports: Breast - Tobacco Use Smoking Status *Q: Former Smoker Years of Tobacco use: 32 Packs/Tins Daily: 1 Used Tobacco, but Quit: Yes Month/Year Tobacco Last Used: 09/2019 Second Hand Smoke Exposure: No - Caffeine Use Caffeine Use: Reports: Coffee, Soda Other Caffeine Use: 2 cups a day sometimes 3 - Recreational Drug Use Recreational Drug Use: Yes Drug Use in Last 12 Months: No Recreational Drug Type: Reports: Marijuana/Hashish, Methamphetamine Other Recreational Drug Type: Reports has not taken any since February 2017 Recreational Drug Use Frequency: Not Used In Over 6 Months - Living Situation & Occupation Living situation: Reports: , with Family (Daughter, her 2 kids, and her boyfriend) Occupation: Disabled H&P Review of Systems - Review of Systems: Review Of Systems: See Below Review of Systems Comment:: Constitutional: Reports: Fever, Chills, Malaise, Decreased Appetite Respiratory: Reports: Shortness of Breath. Denies: Cough Cardiovascular: Reports: Chest Pain GI/Abdominal: Reports: Abdominal Pain, Nausea. Denies: Constipation, Diarrhea, Vomiting Neurological: Denies: Headache Exam - Exam Exam: See Below - Vital Signs Vital Signs: Last Vital Signs Temp 98.9 F 10/15/19 00:00 Pulse 85 10/14/19 23:18 Resp 14 10/15/19 00:00 BP 102/58 L 10/15/19 00:00 Pulse Ox 96 10/15/19 00:00 Weight: 45.405 kg - Exam General: Alert, Oriented, Cooperative, Mild Distress HEENT: Conjunctiva Clear, EACs Clear, EOMI, Mucosa Moist & Thurman, Other ( extremely poor dentition) Neck: Supple, Trachea Midline, +2 Carotid Pulse wo Bruit, Full Range of Motion. No: Lymphadenopathy Lungs: Clear to Auscultation, Normal Respiratory Effort, Crackles (very occasional). No: Rales, Rub, Stridor, Wheezing Cardiovascular: Regular Rate, Regular Rhythm. No: Systolic Murmur, Diastolic Murmur, Rubs, Gallop/S3 GI/Abdominal Exam: Normal Bowel Sounds. No: Distended, Guarding, Rigid, Rebound , Tender Back Exam: Normal Inspection. No: CVA Tenderness (L), CVA Tenderness (R) Extremities: Normal Inspection, Normal Range of Motion Neuro Extensive - Mental Status: Alert, Oriented x3 Psychiatric: Alert, Labile Mood, Anxious, Agitated - Patient Data Result Diagrams: 10/16/19 10:50 10/15/19 13:30 Sepsis Event Note - Evaluation Sepsis Screening Result: No Definite Risk - Focused Exam Vital Signs: Vital Signs Temp Temp Pulse Pulse Resp BP BP 10/15/19 00:00 98.9 F 14 102/58 L 10/14/19 23:18 100 F 85 16 97/64 10/14/19 21:30 97/54 L 10/14/19 21:22 99.1 F 78 14 89/52 L 10/14/19 20:21 100 F 75 16 104/56 L Pulse Ox 10/15/19 00:00 96 10/14/19 23:18 95 10/14/19 21:30 10/14/19 21:22 95 10/14/19 20:21 95 Date Exam was Performed: 10/17/19 Time Exam was Performed: 05:52 - Problem List (1) Mycoplasma infection SNOMED Code(s): 313961273 ICD Code: A49.3 - MYCOPLASMA INFECTION, UNSPECIFIED SITE Status: Acute Priority: High Current Visit: Yes (2) RSV (respiratory syncytial virus infection) SNOMED Code(s): 48528915 ICD Code: B97.4 - RESPIRATORY SYNCYTIAL VIRUS CAUSING DISEASES CLASSD ELSWHR Status: Acute Priority: High Current Visit: Yes (3) Primary cancer of right lung metastatic to other site SNOMED Code(s): 25463212, 897263883 ICD Code: C34.91 - MALIGNANT NEOPLASM OF UNSP PART OF RIGHT BRONCHUS OR LUNG Status: Chronic Priority: High Current Visit: Yes (4) Liver metastases Status: Acute Current Visit: Yes (5) COPD (chronic obstructive pulmonary disease) SNOMED Code(s): 47259590 ICD Code: J44.9 - CHRONIC OBSTRUCTIVE PULMONARY DISEASE, UNSPECIFIED Status : Chronic Priority: Medium Current Visit: No Qualifiers: COPD type: unspecified COPD Qualified Code(s): J44.9 - Chronic obstructive pulmonary disease, unspecified (6) Depression SNOMED Code(s): 72090242 ICD Code: F32.9 - MAJOR DEPRESSIVE DISORDER, SINGLE EPISODE, UNSPECIFIED Status: Chronic Priority: Low Current Visit: No Qualifiers: Depression Type: other depression Qualified Code(s): F32.89 - Other specified depressive episodes (7) History of hepatitis C SNOMED Code(s): 50440183317204, 99306352550257 ICD Code: Z86.19 - PERSONAL HISTORY OF OTHER INFECTIOUS AND PARASITIC DISEASES Status: Chronic Priority: Low Current Visit: No (8) SIRS (systemic inflammatory response syndrome) SNOMED Code(s): 906067176 ICD Code: R65.10 - SIRS OF NON-INFECTIOUS ORIGIN W/O ACUTE ORGAN DYSFUNCTION Status: Acute Current Visit: Yes Problem List Initiated/Reviewed/Updated: Yes Assessment/Plan Comment:: Mycoplasma infection RSV (respiratory syncytial virus infection), recent admission 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 COPD (chronic obstructive pulmonary disease) Shortness of breath Discharged 1 week ago--> she was admitted for URI--> + RSV at that time --> Discharged on Azithromycin and prednisone for 3 more days Completed treatment with azithromycin prior to admission Reconsults for SOB, new respiratory panel in ER was done and was positive for RSV and mycoplasma this is expected and she has been treated for both of these conditions The leukocytosis, mainly neutrophils is secondary to the steroid use-->due to bone marrow stimulation and decreased migration out of the circulation Patient also has a mental health component and appears to be very anxious being that the first thing she asked me for was something for anxiety She is also showing some signs of splitting during out conversation I discussed with her that at this time there is not really much treatment regimens that i can offer other than repeat the CBC in the morning to see if WBC count has come down and that might not happen because she just took steroids but generally this effect peaks at 24 hours and is normal around 72 hours however this might be changed due to her current neoplastic process affecting the liver As for her shortness of breath her SatO2 has not dropped below 95% on RA PLAN - I recommended discharge to follow up with PCP tomorrow however patient voiced concern that she was not ready to go home and requested a longer hospital stay. - Repeat CBC in the morning PROPHYLAXIS DVT- ambulation GI-not indicated CODE STATUS: FULL CODE DISPOSITION: Patient will remain admitted with repeat CBC to be drawn in the morning. - Mortality Measure Prognosis:: Good
[2019-10-15] MEDS: Sertraline 25 MG Tab PO SCH (09:32)
--- NOTE | 2019-10-15 09:34 | PCM.DCSUM1 ---
Discharge Summary - Discharge Data Discharge Date: 10/15/19 Discharge Disposition: Home, Self-Care 01 Condition: Stable - Referral to Home Health Primary Care Physician: Ping Tamez MD - Discharge Plan *PRESCRIPTION DRUG MONITORING PROGRAM REVIEWED*: No *COPY OF PRESCRIPTION DRUG MONITORING REPORT IN PATIENT RUFINO: No Home Medications: Home Meds traZODone HCl [Trazodone HCl] 150 mg PO BEDTIME 05/19/18 [History] Sertraline [Zoloft] 25 mg PO DAILY 08/14/19 [History] Albuterol Sulfate [Proair Hfa] 2 inh INH Q4HR PRN 10/07/19 [History] lamoTRIgine 25 mg PO BID tab.chew 10/09/19 [Rx] Patient Handouts: Steps to Quit Smoking, Community-Acquired Pneumonia, Adult, [id number] Forms: ED Department Discharge Referrals: Ping Tamez MD [Primary Care Provider] - - General Info Date of Service: 10/15/19 - Patient Data Vitals - Most Recent: Last Vital Signs Temp 98.4 F 10/15/19 07:50 Pulse 77 10/15/19 07:50 Resp 19 10/15/19 07:50 BP 113/59 L 10/15/19 07:50 Pulse Ox 96 10/15/19 07:50 Weight - Most Recent: 45.405 kg I&O - Last 24 hours: Intake & Output 10/14/19 10/15/19 10/15/19 22:59 06:59 14:59 Intake Total 925 Output Total 1200 Balance -275 Lab Results - Last 24 hrs: Laboratory Results - last 24 hr 10/14/19 10/14/19 10/14/19 Range/Units 17:45 17:45 17:45 WBC 24.91 H (3.98-10.04) K/mm3 RBC 4.08 (3.98-5.22) M/mm3 Hgb 10.9 L (11.2-15.7) gm/dl Hct 34.2 (34.1-44.9) % MCV 83.8 D (79.4-94.8) fl MCH 26.7 (25.6-32.2) pg MCHC 31.9 L (32.2-35.5) g/dl RDW Std Deviation 42.1 (36.4-46.3) fL Plt Count 695 H (182-369) K/mm3 MPV 8.9 L (9.4-12.3) fl Neutrophils % (Manual) 88 H (40-60) % Band Neutrophils % 0 (0-10) % Lymphocytes % (Manual) 5 L (20-40) % Atypical Lymphs % 0 % Monocytes % (Manual) 7 (2-10) % Eosinophils % (Manual) 0 L (0.7-5.8) % Basophils % (Manual) 0 L (0.1-1.2) Platelet Estimate Increased Plt Morphology Comment See note Macrocytosis 1+ slight Spherocytes Few Ovalocytes 1+ slight RBC Morph Comment Not Reportable PT 11.5 (9.7-12.0) SECONDS INR 1.06 Sodium (136-145) mEq/L Potassium (3.5-5.1) mEq/L Chloride (98-107) mEq/L Carbon Dioxide (21-32) mEq/L Anion Gap (5-15) BUN (7-18) mg/dL Creatinine (0.55-1.02) mg/dL Est Cr Clr Drug Dosing mL/min Estimated GFR (MDRD) (>60) mL/min BUN/Creatinine Ratio (14-18) Glucose (74-106) mg/dL Lactic Acid 1.4 (0.4-2.0) mmol/L Calcium (8.5-10.1) mg/dL Total Bilirubin (0.2-1.0) mg/dL AST (15-37) U/L ALT (14-59) U/L Alkaline Phosphatase (46-116) U/L Troponin I (0.00-0.056) ng/mL C-Reactive Protein (<1.0) mg/dL Total Protein (6.4-8.2) g/dl Albumin (3.4-5.0) g/dl Globulin gm/dL Albumin/Globulin Ratio (1-2) Urine Color (Yellow) Urine Appearance (Clear) Urine pH (5.0-8.0) Ur Specific [place] (1.005-1.030) Urine Protein (Negative) Urine Glucose (UA) (Negative) Urine Ketones (Negative) Urine Occult Blood (Negative) Urine Nitrite (Negative) Urine Bilirubin (Negative) Urine Urobilinogen (0.2-1.0) Ur Leukocyte Esterase (Negative) Urine RBC (0-5) /hpf Urine WBC (0-5) /hpf Ur Squamous Epith Cells (0-5) /hpf Urine Bacteria (FEW) /hpf Urine Mucus (FEW) /hpf Mycoplasma pneumon IgM (NEGATIVE) 10/14/19 10/14/19 10/14/19 Range/Units 17:50 17:50 17:50 WBC (3.98-10.04) K/mm3 RBC (3.98-5.22) M/mm3 Hgb (11.2-15.7) gm/dl Hct (34.1-44.9) % MCV (79.4-94.8) fl MCH (25.6-32.2) pg MCHC (32.2-35.5) g/dl RDW Std Deviation (36.4-46.3) fL Plt Count (182-369) K/mm3 MPV (9.4-12.3) fl Neutrophils % (Manual) (40-60) % Band Neutrophils % (0-10) % Lymphocytes % (Manual) (20-40) % Atypical Lymphs % % Monocytes % (Manual) (2-10) % Eosinophils % (Manual) (0.7-5.8) % Basophils % (Manual) (0.1-1.2) Platelet Estimate Plt Morphology Comment Macrocytosis Spherocytes Ovalocytes RBC Morph Comment PT (9.7-12.0) SECONDS INR Sodium 132 L (136-145) mEq/L Potassium 3.6 (3.5-5.1) mEq/L Chloride 95 L (98-107) mEq/L Carbon Dioxide 25 (21-32) mEq/L Anion Gap 15.6 H (5-15) BUN 8 (7-18) mg/dL Creatinine 0.9 (0.55-1.02) mg/dL Est Cr Clr Drug Dosing 52.19 mL/min Estimated GFR (MDRD) > 60 (>60) mL/min BUN/Creatinine Ratio 8.9 L (14-18) Glucose 113 H (74-106) mg/dL Lactic Acid (0.4-2.0) mmol/L Calcium 9.8 (8.5-10.1) mg/dL Total Bilirubin 0.6 (0.2-1.0) mg/dL AST 12 L (15-37) U/L ALT 14 (14-59) U/L Alkaline Phosphatase 117 H (46-116) U/L Troponin I < 0.017 (0.00-0.056) ng/mL C-Reactive Protein 30.8 H* (<1.0) mg/dL Total Protein 8.3 H (6.4-8.2) g/dl Albumin 2.6 L (3.4-5.0) g/dl Globulin 5.7 gm/dL Albumin/Globulin Ratio 0.5 L (1-2) Urine Color (Yellow) Urine Appearance (Clear) Urine pH (5.0-8.0) Ur Specific [place] (1.005-1.030) Urine Protein (Negative) Urine Glucose (UA) (Negative) Urine Ketones (Negative) Urine Occult Blood (Negative) Urine Nitrite (Negative) Urine Bilirubin (Negative) Urine Urobilinogen (0.2-1.0) Ur Leukocyte Esterase (Negative) Urine RBC (0-5) /hpf Urine WBC (0-5) /hpf Ur Squamous Epith Cells (0-5) /hpf Urine Bacteria (FEW) /hpf Urine Mucus (FEW) /hpf Mycoplasma pneumon IgM Positive H (NEGATIVE) 10/14/19 Range/Units 18:10 WBC (3.98-10.04) K/mm3 RBC (3.98-5.22) M/mm3 Hgb (11.2-15.7) gm/dl Hct (34.1-44.9) % MCV (79.4-94.8) fl MCH (25.6-32.2) pg MCHC (32.2-35.5) g/dl RDW Std Deviation (36.4-46.3) fL Plt Count (182-369) K/mm3 MPV (9.4-12.3) fl Neutrophils % (Manual) (40-60) % Band Neutrophils % (0-10) % Lymphocytes % (Manual) (20-40) % Atypical Lymphs % % Monocytes % (Manual) (2-10) % Eosinophils % (Manual) (0.7-5.8) % Basophils % (Manual) (0.1-1.2) Platelet Estimate Plt Morphology Comment Macrocytosis Spherocytes Ovalocytes RBC Morph Comment PT (9.7-12.0) SECONDS INR Sodium (136-145) mEq/L Potassium (3.5-5.1) mEq/L Chloride (98-107) mEq/L Carbon Dioxide (21-32) mEq/L Anion Gap (5-15) BUN (7-18) mg/dL Creatinine (0.55-1.02) mg/dL Est Cr Clr Drug Dosing mL/min Estimated GFR (MDRD) (>60) mL/min BUN/Creatinine Ratio (14-18) Glucose (74-106) mg/dL Lactic Acid (0.4-2.0) mmol/L Calcium (8.5-10.1) mg/dL Total Bilirubin (0.2-1.0) mg/dL AST (15-37) U/L ALT (14-59) U/L Alkaline Phosphatase (46-116) U/L Troponin I (0.00-0.056) ng/mL C-Reactive Protein (<1.0) mg/dL Total Protein (6.4-8.2) g/dl Albumin (3.4-5.0) g/dl Globulin gm/dL Albumin/Globulin Ratio (1-2) Urine Color Yellow (Yellow) Urine Appearance Slt cloudy H (Clear) Urine pH 8.5 H (5.0-8.0) Ur Specific [place] 1.020 (1.005-1.030) Urine Protein Trace H (Negative) Urine Glucose (UA) Negative (Negative) Urine Ketones Negative (Negative) Urine Occult Blood 1+ H (Negative) Urine Nitrite Negative (Negative) Urine Bilirubin Negative (Negative) Urine Urobilinogen 1.0 (0.2-1.0) Ur Leukocyte Esterase Negative (Negative) Urine RBC 20-30 H (0-5) /hpf Urine WBC 0-5 (0-5) /hpf Ur Squamous Epith Cells 0-5 (0-5) /hpf Urine Bacteria Few (FEW) /hpf Urine Mucus Few (FEW) /hpf Mycoplasma pneumon IgM (NEGATIVE) TYREE Results - Last 24 hrs: Microbiology 10/14/19 17:52 Influenza Type A Antigen Screen - Final Nasal, Unspecified NEGATIVE INFLUENZA A VIRUS AG REFERENCE RANGE: NEGATIVE Influenza Type B Antigen Screen - Final NEGATIVE INFLUENZA B VIRUS AG REFERENCE RANGE: NEGATIVE Med Orders - Current: Current Medications Acetaminophen (Tylenol) 650 mg PO Q6H PRN PRN Reason: Pain Lactated Ringer's (Ringers, Lactated) 1,000 mls @ 50 mls/hr IV ASDIRECTED [facility] Last Admin: 10/14/19 22:29 Dose: 50 mls/hr Lamotrigine (Lamotrigine) 25 mg PO BID [facility] Last Admin: 10/15/19 09:32 Dose: 25 mg Sertraline HCl (Zoloft) 25 mg PO DAILY [facility] Last Admin: 10/15/19 09:32 Dose: 25 mg Sodium Chloride (Saline Flush) 10 ml FLUSH ASDIRECTED PRN PRN Reason: Keep Vein Open Last Admin: 10/14/19 17:46 Dose: 10 ml Trazodone HCl (Trazodone) 150 mg PO BEDTIME [facility] Trolamine Salicylate (Aspercreme 10%) 0 gm TOP Q1H PRN PRN Reason: Pain Discontinued Medications Acetaminophen (Tylenol) 975 mg PO NOW ONE Stop: 10/14/19 20:47 Last Admin: 10/14/19 20:58 Dose: 975 mg Hydromorphone HCl (Dilaudid) 0.5 mg IVPUSH ONETIME ONE Stop: 10/14/19 17:50 Last Admin: 10/14/19 18:09 Dose: 0.5 mg Hydromorphone HCl (Dilaudid) 0.5 mg IVPUSH ONETIME ONE Stop: 10/14/19 20:07 Last Admin: 10/14/19 20:11 Dose: 0.5 mg Sodium Chloride (Normal Saline) 1,000 mls @ 999 mls/hr IV BOLUS ONE Stop: 10/14/19 18:19 Last Admin: 10/14/19 17:46 Dose: 999 mls/hr Ceftriaxone Sodium 1 gm/ (Sodium Chloride) 100 mls @ 200 mls/hr IV ONETIME ONE Stop: 10/14/19 21:13 Last Admin: 10/14/19 20:59 Dose: 200 mls/hr Vancomycin HCl 1 gm/ Sodium (Chloride) 250 mls @ 250 mls/hr IV ONETIME ONE Stop: 10/14/19 21:42 Last Admin: 10/14/19 22:28 Dose: 250 mls/hr Ondansetron HCl (Zofran) 4 mg IVPUSH ONETIME ONE Stop: 10/14/19 17:50 Last Admin: 10/14/19 18:09 Dose: 4 mg
[2019-10-15] MEDS: Benzocaine/Cetylpyridinium/Menthol Lozenge MUCMEM PRN ×2 (10:37→20:24)
[2019-10-15] MEDS: Azithromycin 250 MG Tab PO SCH (12:33)
[2019-10-15] MEDS: Acetaminophen 325 MG Tab PO PRN ×2 (12:33→20:24)
[2019-10-15] MEDS: traZODone 50 MG Tab PO SCH (20:24)
[2019-10-16] MEDS: Acetaminophen 325 MG Tab PO PRN ×3 (05:39→23:25)
[2019-10-16] MEDS: Sertraline 25 MG Tab PO SCH (08:38)
[2019-10-16] MEDS ORDERED: Sertraline 25 MG Tab PO SCH (09:45)
--- NOTE | 2019-10-16 11:14 | PCM.PN ---
- General Info Date of Service: 10/16/19 Admission Dx/Problem (Free Text): Admission Diagnosis/Problem Admission Diagnosis/Problem SIRS without acute organ dysfunction due to infectious process Functional Status: Reports: Pain Controlled, Tolerating Diet, Ambulating, Urinating, Incentive Spirometry. Denies: New Symptoms - Review of Systems General: Reports: No Symptoms. Denies: Fever, Weakness, Fatigue, Malaise, Chills HEENT: Reports: Sore Throat (occasional). Denies: Headaches Pulmonary: Reports: Pleuritic Chest Pain (2/2 coughing ), Cough, Sputum. Denies : Shortness of Breath, Wheezing Cardiovascular: Reports: No Symptoms. Denies: Chest Pain, Palpitations, Dyspnea on Exertion Gastrointestinal: Reports: No Symptoms. Denies: Abdominal Pain, Constipation, Diarrhea, Nausea, Vomiting Genitourinary: Reports: No Symptoms. Denies: Pain Musculoskeletal: Reports: Back Pain (occasional ) Skin: Reports: No Symptoms Neurological: Reports: No Symptoms. Denies: Confusion, Difficulty Walking, Gait Disturbance Psychiatric: Reports: No Symptoms - Patient Data Vitals - Most Recent: Last Vital Signs Temp 98.2 F 10/16/19 07:18 Pulse 53 L 10/16/19 07:18 Resp 14 10/16/19 07:18 BP 102/33 L 10/16/19 07:18 Pulse Ox 95 10/16/19 07:18 Weight - Most Recent: 101 lb 12.8 oz I&O - Last 24 Hours: Intake & Output 10/15/19 10/16/19 10/16/19 22:59 06:59 14:59 Intake Total 1587 700 600 Output Total 1350 1700 Balance 237 -1000 600 Lab Results Last 24 Hours: Laboratory Results - last 24 hr 10/14/19 10/14/19 10/15/19 Range/Units 17:50 23:15 13:30 WBC 20.04 H (3.98-10.04) K/mm3 RBC 3.33 L (3.98-5.22) M/mm3 Hgb 8.9 L D (11.2-15.7) gm/dl Hct 28.5 L (34.1-44.9) % MCV 85.6 (79.4-94.8) fl MCH 26.7 (25.6-32.2) pg MCHC 31.2 L (32.2-35.5) g/dl RDW Std Deviation 42.6 (36.4-46.3) fL Plt Count 553 H D (182-369) K/mm3 MPV 8.6 L (9.4-12.3) fl Neutrophils % (Manual) 84 H (40-60) % Band Neutrophils % 0 (0-10) % Lymphocytes % (Manual) 8 L (20-40) % Atypical Lymphs % 0 % Monocytes % (Manual) 7 (2-10) % Eosinophils % (Manual) 1 (0.7-5.8) % Basophils % (Manual) 0 L (0.1-1.2) Platelet Estimate Increased Anisocytosis 1+ slight RBC Morph Comment Not Reportable Sodium (136-145) mEq/L Potassium (3.5-5.1) mEq/L Chloride (98-107) mEq/L Carbon Dioxide (21-32) mEq/L Anion Gap (5-15) BUN (7-18) mg/dL Creatinine (0.55-1.02) mg/dL Est Cr Clr Drug Dosing mL/min Estimated GFR (MDRD) (>60) mL/min BUN/Creatinine Ratio (14-18) Glucose (74-106) mg/dL Calcium (8.5-10.1) mg/dL Procalcitonin 0.10 H (<0.10) ng/mL Adenovirus (PCR) Not detected (Not Detected) B. pertussis DNA (PCR) Not detected (Not Detected) B.parapertussis DNA PCR Not detected (Not Detected) C. pneumoniae DNA (PCR) Not detected (Not Detected) Coronavirus (PCR) Not detected (Not Detected) Human Metapneumovir PCR Not detected (Not Detected) Influenza A (RT-PCR) Not detected (Not Detected) Influenza B (RT-PCR) Not detected (Not Detected) M. pneumoniae (PCR) Not detected (Not Detected) Parainfluen 1,2,3,4 PCR Not detected (Not Detected) RSV (PCR) Detected H (Not Detected) Entero/Rhino (PCR) Not detected (Not Detected) 10/15/19 10/16/19 Range/Units 13:30 10:50 WBC 18.63 H (3.98-10.04) K/mm3 RBC 3.44 L (3.98-5.22) M/mm3 Hgb 9.2 L (11.2-15.7) gm/dl Hct 28.3 L (34.1-44.9) % MCV 82.3 D (79.4-94.8) fl MCH 26.7 (25.6-32.2) pg MCHC 32.5 (32.2-35.5) g/dl RDW Std Deviation 40.4 (36.4-46.3) fL Plt Count 548 H (182-369) K/mm3 MPV 8.3 L (9.4-12.3) fl Neutrophils % (Manual) 80 H (40-60) % Band Neutrophils % 0 (0-10) % Lymphocytes % (Manual) 11 L (20-40) % Atypical Lymphs % 0 % Monocytes % (Manual) 8 (2-10) % Eosinophils % (Manual) 1 (0.7-5.8) % Basophils % (Manual) 0 L (0.1-1.2) Platelet Estimate Increased Anisocytosis 1+ slight RBC Morph Comment Not Reportable Sodium 135 L (136-145) mEq/L Potassium 3.5 (3.5-5.1) mEq/L Chloride 98 (98-107) mEq/L Carbon Dioxide 26 (21-32) mEq/L Anion Gap 14.5 (5-15) BUN 9 (7-18) mg/dL Creatinine 0.8 (0.55-1.02) mg/dL Est Cr Clr Drug Dosing 57.62 mL/min Estimated GFR (MDRD) > 60 (>60) mL/min BUN/Creatinine Ratio 11.3 L (14-18) Glucose 145 H (74-106) mg/dL Calcium 8.8 (8.5-10.1) mg/dL Procalcitonin (<0.10) ng/mL Adenovirus (PCR) (Not Detected) B. pertussis DNA (PCR) (Not Detected) B.parapertussis DNA PCR (Not Detected) C. pneumoniae DNA (PCR) (Not Detected) Coronavirus (PCR) (Not Detected) Human Metapneumovir PCR (Not Detected) Influenza A (RT-PCR) (Not Detected) Influenza B (RT-PCR) (Not Detected) M. pneumoniae (PCR) (Not Detected) Parainfluen 1,2,3,4 PCR (Not Detected) RSV (PCR) (Not Detected) Entero/Rhino (PCR) (Not Detected) Pb Results Last 24 Hours: Microbiology 10/14/19 18:10 Streptococcus pneumoniae Antigen (M - Final Urine 10/14/19 17:50 Aerobic Blood Culture - Preliminary Blood - Venous - Lab Draw NO GROWTH AFTER 1 DAY Anaerobic Blood Culture - Preliminary NO GROWTH AFTER 1 DAY 10/14/19 17:45 Aerobic Blood Culture - Preliminary Blood - Venous NO GROWTH AFTER 1 DAY Anaerobic Blood Culture - Preliminary NO GROWTH AFTER 1 DAY Med Orders - Current: Current Medications Acetaminophen (Tylenol) 650 mg PO Q6H PRN PRN Reason: Pain Last Admin: 10/16/19 05:39 Dose: 650 mg Azithromycin (Zithromax) 500 mg PO Q24H [facility] Last Admin: 10/15/19 12:33 Dose: 500 mg Benzocaine/Menthol (Cepacol Sore Throat) 1 lozenge MUCMEM Q4H PRN PRN Reason: Sore Throat Last Admin: 10/15/19 20:24 Dose: 1 lozenge Lamotrigine (Lamotrigine) 25 mg PO BID [facility] Last Admin: 10/16/19 08:38 Dose: 25 mg Sertraline HCl (Zoloft) 25 mg PO DAILY [facility] Last Admin: 10/16/19 08:38 Dose: 25 mg Sodium Chloride (Saline Flush) 10 ml FLUSH ASDIRECTED PRN PRN Reason: Keep Vein Open Last Admin: 10/14/19 17:46 Dose: 10 ml Trazodone HCl (Trazodone) 150 mg PO BEDTIME [facility] Last Admin: 10/15/19 20:24 Dose: 150 mg Trolamine Salicylate (Aspercreme 10%) 0 gm TOP Q1H PRN PRN Reason: Pain Discontinued Medications Acetaminophen (Tylenol) 975 mg PO NOW ONE Stop: 10/14/19 20:47 Last Admin: 10/14/19 20:58 Dose: 975 mg Hydromorphone HCl (Dilaudid) 0.5 mg IVPUSH ONETIME ONE Stop: 10/14/19 17:50 Last Admin: 10/14/19 18:09 Dose: 0.5 mg Hydromorphone HCl (Dilaudid) 0.5 mg IVPUSH ONETIME ONE Stop: 10/14/19 20:07 Last Admin: 10/14/19 20:11 Dose: 0.5 mg Sodium Chloride (Normal Saline) 1,000 mls @ 999 mls/hr IV BOLUS ONE Stop: 10/14/19 18:19 Last Admin: 10/14/19 17:46 Dose: 999 mls/hr Lactated Ringer's (Ringers, Lactated) 1,000 mls @ 50 mls/hr IV ASDIRECTED IVONNE Last Admin: 10/14/19 22:29 Dose: 50 mls/hr Ceftriaxone Sodium 1 gm/ (Sodium Chloride) 100 mls @ 200 mls/hr IV ONETIME ONE Stop: 10/14/19 21:13 Last Admin: 10/14/19 20:59 Dose: 200 mls/hr Vancomycin HCl 1 gm/ Sodium (Chloride) 250 mls @ 250 mls/hr IV ONETIME ONE Stop: 10/14/19 21:42 Last Admin: 10/14/19 22:28 Dose: 250 mls/hr Ondansetron HCl (Zofran) 4 mg IVPUSH ONETIME ONE Stop: 10/14/19 17:50 Last Admin: 10/14/19 18:09 Dose: 4 mg Sertraline HCl (Zoloft) 25 mg PO DAILY IVONNE - Exam Quality Assessment: DVT Prophylaxis. No: Supplemental Oxygen General: Alert, Oriented, Cooperative, No Acute Distress, Other (cachectic ) HEENT: Pupils Equal, Pupils Reactive, Mucous Membr. Moist/Sleeping [place] Lungs: Normal Respiratory Effort, Decreased Breath Sounds Cardiovascular: Regular Rate, Regular Rhythm GI/Abdominal Exam: Normal Bowel Sounds, Soft, Non-Tender, No Distention (Female) Exam: Deferred Back Exam: Normal Inspection, Full Range of Motion Extremities: Normal Inspection, Normal Range of Motion, Non-Tender, No Pedal Edema, Normal Capillary Refill Peripheral Pulses: 2+: Radial (L), Radial (R), Dorsalis Pedis (L), Dorsalis Pedis (R) Skin: Warm, Dry, Intact Neurological: No New Focal Deficit Psy/Mental Status: Alert, Normal Affect, Normal Mood Sepsis Event Note - Evaluation Sepsis Screening Result: No Definite Risk - Focused Exam Vital Signs: Vital Signs Temp Pulse Resp BP Pulse Ox 10/16/19 07:18 98.2 F 53 L 14 102/33 L 95 10/16/19 05:43 98.4 F 10/16/19 05:41 99.0 F 81 18 98/48 L 96 Date Exam was Performed: 10/17/19 Time Exam was Performed: 09:05 - Problem List & Annotations (1) RSV (respiratory syncytial virus infection) SNOMED Code(s): 17531547 Code(s): B97.4 - RESPIRATORY SYNCYTIAL VIRUS CAUSING DISEASES CLASSD [id number] Status: Acute Priority: High Current Visit: Yes (2) Mycoplasma infection SNOMED Code(s): 921494266 Code(s): A49.3 - MYCOPLASMA INFECTION, UNSPECIFIED SITE Status: Acute Priority: High Current Visit: Yes (3) Back pain SNOMED Code(s): 294073332 Code(s): M54.9 - DORSALGIA, UNSPECIFIED Status: Chronic Priority: Medium Current Visit: No Qualifiers: Back pain location: low back pain Chronicity: acute Back pain laterality : midline Sciatica presence: without sciatica Qualified Code(s): M54.5 - Low back pain (4) History of laparoscopic cholecystectomy SNOMED Code(s): 480373839 Code(s): Z90.49 - ACQUIRED ABSENCE OF OTHER SPECIFIED PARTS OF DIGESTIVE TRACT Status: Chronic Priority: Low Current Visit: No (5) Pneumonia SNOMED Code(s): 579613798 Code(s): J18.9 - PNEUMONIA, UNSPECIFIED ORGANISM Status: Acute Priority: High Current Visit: Yes Qualifiers: Pneumonia type: due to unspecified organism Laterality: right Lung location: lower lobe of lung Qualified Code(s): J18.9 - Pneumonia, unspecified organism (6) Primary cancer of right lung metastatic to other site SNOMED Code(s): 85330456, 318171454 Code(s): C34.91 - MALIGNANT NEOPLASM OF UNSP PART OF RIGHT BRONCHUS OR LUNG Status: Chronic Priority: High Current Visit: Yes (7) Liver cancer SNOMED Code(s): 30161142 Code(s): C22.9 - MALIG NEOPLASM OF LIVER, NOT SPECIFIED PRIMARY OR SEC Status: Chronic Priority: Medium Current Visit: Yes Qualifiers: Liver malignancy type: unspecified liver malignancy Qualified Code(s): C22.9 - Malignant neoplasm of liver, not specified as primary or secondary (8) History of hepatitis C SNOMED Code(s): 35738252017615, 81140807233771 Code(s): Z86.19 - PERSONAL HISTORY OF OTHER INFECTIOUS AND PARASITIC DISEASES Status: Chronic Priority: Low Current Visit: No (9) COPD (chronic obstructive pulmonary disease) SNOMED Code(s): 47543853 Code(s): J44.9 - CHRONIC OBSTRUCTIVE PULMONARY DISEASE, UNSPECIFIED Status : Chronic Priority: Medium Current Visit: No Qualifiers: COPD type: unspecified COPD Qualified Code(s): J44.9 - Chronic obstructive pulmonary disease, unspecified (10) History of seizures SNOMED Code(s): 519545348 Code(s): Z87.898 - PERSONAL HISTORY OF OTHER SPECIFIED CONDITIONS Status: Chronic Priority: Low Current Visit: No (11) History of migraine SNOMED Code(s): 742181063 Code(s): Z86.69 - PERSONAL HISTORY OF DIS OF THE NERVOUS SYS AND SENSE ORGANS Status: Chronic Priority: Low Current Visit: No (12) Osteoarthritis SNOMED Code(s): 141301426 Code(s): M19.90 - UNSPECIFIED OSTEOARTHRITIS, UNSPECIFIED SITE Status: Chronic Priority: Medium Current Visit: No Qualifiers: Osteoarthritis location: unspecified site Osteoarthritis type: unspecified Qualified Code(s): M19.90 - Unspecified osteoarthritis, unspecified site (13) Anxiety SNOMED Code(s): 29772139 Code(s): F41.9 - ANXIETY DISORDER, UNSPECIFIED Status: Chronic Priority: Low Current Visit: No (14) Depression SNOMED Code(s): 44921584 Code(s): F32.9 - MAJOR DEPRESSIVE DISORDER, SINGLE EPISODE, UNSPECIFIED Status: Chronic Priority: Low Current Visit: No Qualifiers: Depression Type: other depression Qualified Code(s): F32.89 - Other specified depressive episodes (15) History of suicide attempt SNOMED Code(s): 443649281, 594794691 Code(s): Z91.5 - PERSONAL HISTORY OF SELF-HARM Status: Chronic Priority: Low Current Visit: No (16) Liver metastases Status: Chronic Priority: Medium Current Visit: Yes (17) SIRS (systemic inflammatory response syndrome) SNOMED Code(s): 085188441 Code(s): R65.10 - SIRS OF NON-INFECTIOUS ORIGIN W/O ACUTE ORGAN DYSFUNCTION Status: Acute Priority: High Current Visit: Yes - Problem List Review Problem List Initiated/Reviewed/Updated: Yes - My Orders Last 24 Hours: My Active Orders 10/16/19 09:44 RT Incentive Spirometry [RC] ASDIRECTED - Plan Plan:: Mycoplasma infection RSV (respiratory syncytial virus infection), recent admission 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 COPD (chronic obstructive pulmonary disease) Shortness of breath Discharged 1 week ago--> she was admitted for URI--> + RSV at that time --> Discharged on Azithromycin and prednisone for 3 more days Completed treatment with azithromycin prior to admission Reconsults for SOB, new respiratory panel in ER was done and was positive for RSV and mycoplasma this is expected and she has been treated for both of these conditions The leukocytosis, mainly neutrophils is secondary to the steroid use-->due to bone marrow stimulation and decreased migration out of the circulation Patient also has a mental health component and appears to be very anxious being that the first thing she asked me for was something for anxiety She is also showing some signs of splitting during our conversation I discussed with her that at this time there is not really much treatment regimens that i can offer other than repeat the CBC in the morning to see if WBC count has come down and that might not happen because she just took steroids but generally this effect peaks at 24 hours and is normal around 72 hours however this might be changed due to her current neoplastic process affecting the liver As for her shortness of breath her SatO2 has not dropped below 95% on RA PLAN - I recommended discharge to follow up with PCP tomorrow however patient voiced concern that she was not ready to go home and requested a longer hospital stay. - Repeat CBC in the morning - Sl[employer] Helper consult - Droplet/Contact isolation PROPHYLAXIS DVT- ambulation GI-not indicated CODE STATUS: FULL CODE DISPOSITION: Patient will remain admitted with repeat CBC to be drawn in the morning. Likely discharge on 10/17/19 Follow-up with Oncology regarding neoplasm of lung and liver
[2019-10-16] MEDS: Azithromycin 250 MG Tab PO SCH (12:29)
[2019-10-16] MEDS: traZODone 50 MG Tab PO SCH (20:10)
[2019-10-17] MEDS: Sertraline 25 MG Tab PO SCH (08:59)
--- NOTE | 2019-10-17 09:10 | PCM.DCSUM1 ---
Discharge Summary - Hospital Course HPI Initial Comments: Patient is a 54-year-old female who presents to the ED for evaluation of her increasing shortness of breath. Patient relates that she has a recent diagnosis of lung and liver cancer, and was hospitalized in this hospital last week for pneumonia for a few days. Patient states she felt okay after this, but over the last few days, she is having increased weakness, coughing, just cannot catch a deep breath. She relates some nausea, and pains in her chest as well. She does have a fever at time of triage, 101.8 F, and blood pressure was mildly low at 97/76. Patient was seen in the ER just after the hospitalization for back pain as well, and states that she was given some tabs of oxycodone, but has not taken any for pain management. Diagnosis: Stroke: No - Discharge Data Discharge Date: 10/17/19 (Admit date: 10/14/19) Discharge Disposition: Home, Self-Care 01 Condition: Good - Referral to Home Health Primary Care Physician: Ping Tamez MD - Discharge Diagnosis/Problem(s) (1) RSV (respiratory syncytial virus infection) SNOMED Code(s): 31600772 ICD Code: B97.4 - RESPIRATORY SYNCYTIAL VIRUS CAUSING DISEASES CLASSD ELSWHR Status: Acute Priority: High Current Visit: Yes (2) Mycoplasma infection SNOMED Code(s): 549409594 ICD Code: A49.3 - MYCOPLASMA INFECTION, UNSPECIFIED SITE Status: Acute Priority: High Current Visit: Yes (3) Back pain SNOMED Code(s): 916616114 ICD Code: M54.9 - DORSALGIA, UNSPECIFIED Status: Chronic Priority: Medium Current Visit: No Qualifiers: Back pain location: low back pain Chronicity: acute Back pain laterality : midline Sciatica presence: without sciatica Qualified Code(s): M54.5 - Low back pain (4) History of laparoscopic cholecystectomy SNOMED Code(s): 796973880 ICD Code: Z90.49 - ACQUIRED ABSENCE OF OTHER SPECIFIED PARTS OF DIGESTIVE TRACT Status: Chronic Priority: Low Current Visit: No (5) Pneumonia SNOMED Code(s): 332095755 ICD Code: J18.9 - PNEUMONIA, UNSPECIFIED ORGANISM Status: Acute Priority : High Current Visit: Yes Qualifiers: Pneumonia type: due to unspecified organism Laterality: right Lung location: lower lobe of lung Qualified Code(s): J18.9 - Pneumonia, unspecified organism (6) Primary cancer of right lung metastatic to other site SNOMED Code(s): 26300013, 904461758 ICD Code: C34.91 - MALIGNANT NEOPLASM OF UNSP PART OF RIGHT BRONCHUS OR LUNG Status: Chronic Priority: High Current Visit: Yes (7) Liver cancer SNOMED Code(s): 50666156 ICD Code: C22.9 - MALIG NEOPLASM OF LIVER, NOT SPECIFIED PRIMARY OR SEC Status: Chronic Priority: Medium Current Visit: Yes Qualifiers: Liver malignancy type: unspecified liver malignancy Qualified Code(s): C22.9 - Malignant neoplasm of liver, not specified as primary or secondary (8) History of hepatitis C SNOMED Code(s): 60736222251910, 94196061629092 ICD Code: Z86.19 - PERSONAL HISTORY OF OTHER INFECTIOUS AND PARASITIC DISEASES Status: Chronic Priority: Low Current Visit: No (9) COPD (chronic obstructive pulmonary disease) SNOMED Code(s): 92316093 ICD Code: J44.9 - CHRONIC OBSTRUCTIVE PULMONARY DISEASE, UNSPECIFIED Status : Chronic Priority: Medium Current Visit: No Qualifiers: COPD type: unspecified COPD Qualified Code(s): J44.9 - Chronic obstructive pulmonary disease, unspecified (10) History of seizures SNOMED Code(s): 258116821 ICD Code: Z87.898 - PERSONAL HISTORY OF OTHER SPECIFIED CONDITIONS Status: Chronic Priority: Low Current Visit: No (11) History of migraine SNOMED Code(s): 342520586 ICD Code: Z86.69 - PERSONAL HISTORY OF DIS OF THE NERVOUS SYS AND SENSE ORGANS Status: Chronic Priority: Low Current Visit: No (12) Osteoarthritis SNOMED Code(s): 522271196 ICD Code: M19.90 - UNSPECIFIED OSTEOARTHRITIS, UNSPECIFIED SITE Status: Chronic Priority: Medium Current Visit: No Qualifiers: Osteoarthritis location: unspecified site Osteoarthritis type: unspecified Qualified Code(s): M19.90 - Unspecified osteoarthritis, unspecified site (13) Anxiety SNOMED Code(s): 87972762 ICD Code: F41.9 - ANXIETY DISORDER, UNSPECIFIED Status: Chronic Priority : Low Current Visit: No (14) Depression SNOMED Code(s): 19815959 ICD Code: F32.9 - MAJOR DEPRESSIVE DISORDER, SINGLE EPISODE, UNSPECIFIED Status: Chronic Priority: Low Current Visit: No Qualifiers: Depression Type: other depression Qualified Code(s): F32.89 - Other specified depressive episodes (15) History of suicide attempt SNOMED Code(s): 323585757, 621638919 ICD Code: Z91.5 - PERSONAL HISTORY OF SELF-HARM Status: Chronic Priority : Low Current Visit: No (16) Liver metastases Status: Chronic Priority: Medium Current Visit: Yes (17) SIRS (systemic inflammatory response syndrome) SNOMED Code(s): 005262162 ICD Code: R65.10 - SIRS OF NON-INFECTIOUS ORIGIN W/O ACUTE ORGAN DYSFUNCTION Status: Acute Priority: High Current Visit: Yes - Patient Summary/Data Consults: Consultations 10/16/19 11:35 Consult to Spiritual Care [CONS] Routine 10/16/19 11:48 Consult to Electrical Prospecting Engineer [CONS] Routine Labs Pending at D/C: None Recommended Follow-up Testing/Procedures: Follow-up with PCP within 7-10 days of discharge, sooner if needed. Follow-up with oncology as directed prior. Hospital Course: [place] was admitted to the floor for possible SIRS. Started on Vanco and Rocephin in the ED and once on the floor became pretty obvious that this was not as severe of an infection as initially thought. Patient had been treated for mycoplasma and RSV prior hospital admission. Patient was pretty adamant that she had a new infection due to her elevated white count and it was explained to the patient that this was likely due to her prior steroid and also her ongoing neoplasm. She was ultimately switched to a 5-day course of azithromycin. It was explained to her that she will likely feel bad for some time as we can treat her mycoplasma but the RSV virus must run its course. She was given incentive spirometry and Acapella. She did have a productive cough. She denied any significant pain until just prior to discharge. At that time she began to complain of severe right sided back pain. She reports this is the same pain that brought her to the emergency room initially. She did report that she has had this pain in the past and was given Dilaudid in the ER, which helped significantly. She had been refusing any narcotics while here however with this acute onset of pain she did request something that would make her feel better. She does have a prescription for [place] which she reports she has not taken and does not want while here. We discussed options and ultimately she was given a 10 mg Flexeril. She was warned that this can make her feel like a wet noodle. She did report that her daughter will be driving her home and she is not concerned about operating motor vehicle. She was prescribed 2 more days of 500 mg azithromycin which will complete her 5 days of treatment. She was advised to continue to utilize her incentive spirometry and Acapella until symptoms resolve. She also requested another prescription for an albuterol inhaler, as she reports she has lost hers, and this was provided. She was advised to follow-up with her primary care provider within 7 to 10 days of discharge and to follow-up with her oncologist as per prior. She did note that she was awaiting results of a PET scan and that her oncologist will be calling today to discuss options. She was discharged today. Home medications were otherwise continued. - Patient Instructions Diet: Usual Diet as Tolerated Activity: As Tolerated Driving: Do Not Drive Showering/Bathing: May Shower Notify Provider of: Fever, Increased Pain, Nausea and/or Vomiting Other/Special Instructions: Follow-up with primary care provider within 7-10 days of discharge, sooner if needed. Follow-up with oncology as per prior. Take over the counter Robitussin DM for cough. Take all of your antibiotic as prescribed, even if you feel 100% better. Your symptoms will likely last for quite a while. You have both a bacterial and viral infection. We can give you an antibiotic for the bacteria but unfortunately the virus must just run its course. Take it easy. Drink plenty of water and stay hydrated. Avoid contact with the very old or very young. You are generally contagious for 3-8 days from the onset of symptoms, but may be contagious longer. You saw our fabric coating supervisor and they recommended an oral supplement. You were given samples of this. Recommend you continue this at home. Continuet to utilize your incentive spirometry ( Clear/blue tube you inhale thorugh) and acapella (green tube you blow through) until your symptoms resolve. Should symtpoms return or worsen, contact primary care provider or return to the Emergency Department. - Discharge Plan *PRESCRIPTION DRUG MONITORING PROGRAM REVIEWED*: No *COPY OF PRESCRIPTION DRUG MONITORING REPORT IN PATIENT RUFINO: No Prescriptions/Med Rec: Albuterol Sulfate [Proair Hfa] 2 inh INH Q4HR PRN #1 hfa.[email or web address] PRN Reason: Shortness Of Breath Azithromycin [Zithromax] 500 mg PO Q24H #2 tablet Home Medications: Home Meds traZODone HCl [Trazodone HCl] 150 mg PO BEDTIME 05/19/18 [History] Sertraline [Zoloft] 25 mg PO DAILY 08/14/19 [History] lamoTRIgine 25 mg PO BID tab.chew 10/09/19 [Rx] Albuterol Sulfate [Proair Hfa] 2 inh INH Q4HR PRN #1 hfa.aer.ad 10/17/19 [Rx] Azithromycin [Zithromax] 500 mg PO Q24H #2 tablet 10/17/19 [Rx] Oxygen Therapy Mode: Room Air Patient Handouts: Upper Respiratory Infection, Adult, [id number], Respiratory Syncytial Virus, Adult, Community-Acquired Pneumonia, Adult, Easy-to -Read Referrals: Ping Tamez MD [Primary Care Provider] - 10/25/19 12:45 pm (Please follow up with Dr. Tamez on October 24 at 12:45 for a hospital follow-up. This appointment will be replacing your well visit. Discuss with Dr. Tamez if you must reschedule your well visit.) Justin Blackwell MD [Ordering Only Provider] - - Discharge Summary/Plan Comment DC Time >30 min.: Yes (45 mins ) - General Info Date of Service: 10/17/19 Admission Dx/Problem (Free Text: Admission Diagnosis/Problem Admission Diagnosis/Problem SIRS without acute organ dysfunction due to infectious process Functional Status: Reports: Pain Controlled, Tolerating Diet, Ambulating, Urinating, Incentive Spirometry, Other (Acapella ). Denies: New Symptoms - Review of Systems General: Reports: No Symptoms. Denies: Fever, Weakness, Fatigue, Malaise, Chills HEENT: Reports: No Symptoms. Denies: Headaches Pulmonary: Reports: Pleuritic Chest Pain (2/2 cough ), Cough, Sputum. Denies: Shortness of Breath, Wheezing Cardiovascular: Reports: No Symptoms. Denies: Chest Pain, Palpitations, Dyspnea on Exertion, Edema Gastrointestinal: Reports: No Symptoms. Denies: Abdominal Pain, Constipation, Diarrhea, Nausea, Vomiting Genitourinary: Reports: No Symptoms. Denies: Pain Musculoskeletal: Reports: Back Pain (Sudden severe right scapular pain prior to discharge. ) Skin: Reports: No Symptoms. Denies: Cyanosis Neurological: Reports: No Symptoms. Denies: Confusion, Difficulty Walking, Gait Disturbance Psychiatric: Reports: No Symptoms - Patient Data Vitals - Most Recent: Last Vital Signs Temp 98.8 F 10/17/19 07:37 Pulse 64 10/17/19 07:37 Resp 12 10/17/19 07:37 BP 120/54 L 10/17/19 07:37 Pulse Ox 95 10/17/19 07:37 Weight - Most Recent: 101 lb 12.8 oz I&O - Last 24 hours: Intake & Output 10/16/19 10/17/19 10/17/19 22:59 06:59 14:59 Intake Total 1560 850 Output Total 1500 1300 Balance 60 -450 Lab Results - Last 24 hrs: Laboratory Results - last 24 hr 10/16/19 Range/Units 10:50 WBC 18.63 H (3.98-10.04) K/mm3 RBC 3.44 L (3.98-5.22) M/mm3 Hgb 9.2 L (11.2-15.7) gm/dl Hct 28.3 L (34.1-44.9) % MCV 82.3 D (79.4-94.8) fl MCH 26.7 (25.6-32.2) pg MCHC 32.5 (32.2-35.5) g/dl RDW Std Deviation 40.4 (36.4-46.3) fL Plt Count 548 H (182-369) K/mm3 MPV 8.3 L (9.4-12.3) fl Neutrophils % (Manual) 80 H (40-60) % Band Neutrophils % 0 (0-10) % Lymphocytes % (Manual) 11 L (20-40) % Atypical Lymphs % 0 % Monocytes % (Manual) 8 (2-10) % Eosinophils % (Manual) 1 (0.7-5.8) % Basophils % (Manual) 0 L (0.1-1.2) Platelet Estimate Increased Anisocytosis 1+ slight RBC Morph Comment Not Reportable TYREE Results - Last 24 hrs: Microbiology 10/14/19 17:50 Aerobic Blood Culture - Preliminary Blood - Venous - Lab Draw NO GROWTH AFTER 2 DAYS Anaerobic Blood Culture - Preliminary NO GROWTH AFTER 2 DAYS 10/14/19 17:45 Aerobic Blood Culture - Preliminary Blood - Venous NO GROWTH AFTER 2 DAYS Anaerobic Blood Culture - Preliminary NO GROWTH AFTER 2 DAYS 10/14/19 18:10 Urine Culture - Final Urine, Clean Catch MIXED JIMBO SUGGESTIVE OF CONTAMINATION. 10/14/19 18:10 Streptococcus pneumoniae Antigen (M - Final Urine Med Orders - Current: Current Medications Acetaminophen (Tylenol) 650 mg PO Q6H PRN PRN Reason: Pain Last Admin: 10/16/19 23:25 Dose: 650 mg Azithromycin (Zithromax) 500 mg PO Q24H [facility] Last Admin: 10/16/19 12:29 Dose: 500 mg Benzocaine/Menthol (Cepacol Sore Throat) 1 lozenge MUCMEM Q4H PRN PRN Reason: Sore Throat Last Admin: 10/15/19 20:24 Dose: 1 lozenge Lamotrigine (Lamotrigine) 25 mg PO BID [facility] Last Admin: 10/17/19 08:59 Dose: 25 mg Sertraline HCl (Zoloft) 25 mg PO DAILY [facility] Last Admin: 10/17/19 08:59 Dose: 25 mg Sodium Chloride (Saline Flush) 10 ml FLUSH ASDIRECTED PRN PRN Reason: Keep Vein Open Last Admin: 10/14/19 17:46 Dose: 10 ml Trazodone HCl (Trazodone) 150 mg PO BEDTIME [facility] Last Admin: 10/16/19 20:10 Dose: 150 mg Trolamine Salicylate (Aspercreme 10%) 0 gm TOP Q1H PRN PRN Reason: Pain Discontinued Medications Acetaminophen (Tylenol) 975 mg PO NOW ONE Stop: 10/14/19 20:47 Last Admin: 10/14/19 20:58 Dose: 975 mg Hydromorphone HCl (Dilaudid) 0.5 mg IVPUSH ONETIME ONE Stop: 10/14/19 17:50 Last Admin: 10/14/19 18:09 Dose: 0.5 mg Hydromorphone HCl (Dilaudid) 0.5 mg IVPUSH ONETIME ONE Stop: 10/14/19 20:07 Last Admin: 10/14/19 20:11 Dose: 0.5 mg Sodium Chloride (Normal Saline) 1,000 mls @ 999 mls/hr IV BOLUS ONE Stop: 10/14/19 18:19 Last Admin: 10/14/19 17:46 Dose: 999 mls/hr Lactated Ringer's (Ringers, Lactated) 1,000 mls @ 50 mls/hr IV ASDIRECTED IVONNE Last Admin: 10/14/19 22:29 Dose: 50 mls/hr Ceftriaxone Sodium 1 gm/ (Sodium Chloride) 100 mls @ 200 mls/hr IV ONETIME ONE Stop: 10/14/19 21:13 Last Admin: 10/14/19 20:59 Dose: 200 mls/hr Vancomycin HCl 1 gm/ Sodium (Chloride) 250 mls @ 250 mls/hr IV ONETIME ONE Stop: 10/14/19 21:42 Last Admin: 10/14/19 22:28 Dose: 250 mls/hr Ondansetron HCl (Zofran) 4 mg IVPUSH ONETIME ONE Stop: 10/14/19 17:50 Last Admin: 10/14/19 18:09 Dose: 4 mg Sertraline HCl (Zoloft) 25 mg PO DAILY IVONNE - Exam Quality Assessment: Reports: DVT Prophylaxis. Denies: Supplemental Oxygen General: Reports: Alert, Oriented, Cooperative, No Acute Distress HEENT: Reports: Pupils Equal, Pupils Reactive, Mucous Membr. Moist/Likely Neck: Reports: Supple, Trachea Midline Lungs: Reports: Clear to Auscultation, Normal Respiratory Effort Cardiovascular: Reports: Regular Rate, Regular Rhythm GI/Abdominal Exam: Normal Bowel Sounds, Soft, Non-Tender, No Distention (Female) Exam: Deferred Rectal (Female) Exam: Deferred Back Exam: Reports: Normal Inspection, Full Range of Motion, Other (Reports back pain on right scapular region. No muscle spasm noted. ). Denies: Muscle Spasm Extremities: Normal Inspection, Normal Range of Motion, Non-Tender, No Pedal Edema, Normal Capillary Refill Skin: Reports: Warm, Dry, Intact Neurological: Reports: No New Focal Deficit Psy/Mental Status: Reports: Alert, Normal Affect, Normal Mood
[2019-10-17] MEDS: Acetaminophen 325 MG Tab PO PRN (12:55)
[2019-10-17] MEDS: Azithromycin 250 MG Tab PO SCH (12:55)
[2019-10-17] MEDS ORDERED: Cyclobenzaprine 10 MG Tab PO ONE (14:18)
== END 2019-10-17 15:38 | disposition home or self-care (01) | DRG 194 ==
LOC: JD.ED 16:33 → JD.MS 20:38 → OBSVTOIN 10-16 11:20
PROVIDERS: ADMIT Internal Medicine; ATTEND Internal Medicine
DX: J18.9 Pneumonia, unspecified organism (principal); C34.91 Malignant neoplasm of unspecified part of right bronchus or lung; J44.0 Chronic obstructive pulmonary disease with (acute) lower respiratory infection; C78.7 Secondary malignant neoplasm of liver and intrahepatic bile duct; R65.10 Systemic inflammatory response syndrome (SIRS) of non-infectious origin without acute organ dysfunction; B97.4 Respiratory syncytial virus as the cause of diseases classified elsewhere; J44.9 Chronic obstructive pulmonary disease, unspecified; A49.3 Mycoplasma infection, unspecified site; Z86.19 Personal history of other infectious and parasitic diseases; M54.9 Dorsalgia, unspecified; M54.5 Low back pain; M19.90 Unspecified osteoarthritis, unspecified site; F41.9 Anxiety disorder, unspecified; Z91.5 Personal history of self-harm; Z88.6 Allergy status to analgesic agent; F32.9 Major depressive disorder, single episode, unspecified; H54.7 Unspecified visual loss; Z88.5 Allergy status to narcotic agent; M41.9 Scoliosis, unspecified; Z79.899 Other long term (current) drug therapy; Z90.710 Acquired absence of both cervix and uterus; Z87.891 Personal history of nicotine dependence; Z90.49 Acquired absence of other specified parts of digestive tract
CPT/HCPCS: 36415 ×3; 71046; 80048; 80053; 81001; 83605; 84145; 84484; 85007 ×3; 85027 ×3; 85610; 86140; 86738; 87040 ×2; 87086; 87486; 87581; 87632; 87798; 87804 ×2; 87899; 93005; 96361; 96365; 96367; 96375; 96376; 99285; A9270 ×13; J0696; J1170 ×2; J2405; J3370; J7030; J7050 ×2; J7120; 93010; 94667; 99284; G0378

== ENCOUNTER 2019-10-25 20:07 | Emergency (ER) | payer MEDICAID ==
[2019-10-25] MEDS ORDERED: Ibuprofen 600 MG Tab PO ONE (20:58)
--- NOTE | 2019-10-25 21:06 | EDM.PDOC ---
ED HPI GENERAL MEDICAL PROBLEM - General Chief Complaint: General Stated Complaint: FIRST CHEMO NOW BACK AND STOMACH HURT Time Seen by Provider: 10/25/19 20:35 Source of Information: Reports: Patient History Limitations: Reports: No Limitations - History of Present Illness INITIAL COMMENTS - FREE TEXT/NARRATIVE: Patient is a 54-year-old female who presents with complaints of generalized abdominal and low back pain and bloating for the last 2 days. Patient does have stage IV lung cancer. Her port was just placed this past Tuesday and she received her first round of chemo yesterday. She states that on Tuesday she had a normal bowel movement. She states that she is also not passing gas. She has had no nausea or vomiting. She has not had a fever that she is aware of, however she states that she does feel chilled at this time. She denies any cough or shortness of breath. She was just discharged from our facility last week for a pneumonia. Her primary care provider is Dr. Tamez and she did have an appointment with her today. Her oncologist is Dr. Manuel at [facility] in [place]. Lower Back Pain Score (Numeric/FACES): 8 - Related Data Allergies Allergy/AdvReac Type Severity Reaction Status Date / Time ketorolac [From Toradol] AdvReac Vomiting Verified 10/10/19 11:02 Home Meds: Home Meds traZODone HCl [Trazodone HCl] 150 mg PO BEDTIME 05/19/18 [History] Sertraline [Zoloft] 25 mg PO DAILY 08/14/19 [History] Albuterol Sulfate [Proair Hfa] 2 inh INH Q4HR PRN #1 [email or web address] 10/17/19 [Rx] Nicotine [Habitrol] 14 mg TOP DAILY PRN 10/26/19 [History] Ondansetron [Zofran] 8 mg PO Q6H PRN 10/26/19 [History] Orphenadrine Citrate [Orphenadrine Citrate ER] 100 mg PO DAILY PRN 10/26/19 [ History] Promethazine HCl 25 mg TOP Q6H PRN 10/26/19 [History] lamoTRIgine 50 mg PO BID 10/26/19 [History] Past Medical History HEENT History: Reports: Impaired Vision, Other (See Below) Other HEENT History: wears glasses Respiratory History: Reports: COPD, Other (See Below) Other Respiratory History: lung cancer Gastrointestinal History: Reports: Hepatitis Other Gastrointestinal History: "cured for hepatitis C" Genitourinary History: Reports: None 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 Oncologic (Cancer) History: Reports: Liver, Lung, Metastatic Dermatologic History: Reports: Other (See Below) Other Dermatologic History: dry skin - Infectious Disease History Infectious Disease History: Reports: Chicken Pox, Hepatitis C Other Infectious Disease History: had treatment and now is clear since November. - Past Surgical History HEENT Surgical History: Reports: Oral Surgery Other HEENT Surgeries/Procedures: upper dentures Respiratory Surgical History: Reports: None GI Surgical History: Reports: Appendectomy, Cholecystectomy Female Surgical History: Reports: Hysterectomy Neurological Surgical History: Reports: None Musculoskeletal Surgical History: Reports: None Social & Family History - Family History Family Medical History: Noncontributory Cardiac: Reports: CAD Oncologic: Reports: Breast - Tobacco Use Smoking Status *Q: Former Smoker Used Tobacco, but Quit: Yes Month/Year Tobacco Last Used: Dec - Caffeine Use Caffeine Use: Reports: Coffee, Soda Other Caffeine Use: 2 cups a day sometimes 3 - Recreational Drug Use Recreational Drug Use: No Other Recreational Drug Type: clean for 2.5 yrs - Living Situation & Occupation Living situation: Reports: , with Family (Daughter, her 2 kids, and her boyfriend) Occupation: Disabled ED ROS GENERAL - Review of Systems Review Of Systems: Comprehensive ROS is negative, except as noted in HPI. ED EXAM, GENERAL - Physical Exam Exam: See Below Exam Limited By: No Limitations General Appearance: Alert, WD/WN, No Apparent Distress Head: Atraumatic, Normocephalic Respiratory/Chest: No Respiratory Distress, Lungs Clear, Normal Breath Sounds, No Accessory Muscle Use, Chest Non-Tender Cardiovascular: Normal Peripheral Pulses, Regular Rate, Rhythm, No Edema, No Gallop, No JVD, No Murmur, No Rub GI/Abdominal: Normal Bowel Sounds, Soft, No Distention, No Abnormal Bruit, No Mass, Pelvis Stable, Tender (Generalized throughout. ) Neurological: Alert, Oriented, CN II-XII Intact, Normal Cognition, Normal Gait, Normal Reflexes, No Motor/Sensory Deficits Psychiatric: Normal Affect, Normal Mood Skin Exam: Warm, Dry, Intact, Normal Color, No Rash, Wound/Incision (partially healed incision to right upper chest from port-a-cath insertion. No redness or drainage present.) Course - Vital Signs Last Recorded V/S: Last Vital Signs Temp 100.1 F 10/25/19 23:50 Pulse 85 10/25/19 20:24 Resp 19 10/25/19 23:50 BP 99/59 L 10/25/19 23:50 Pulse Ox 95 10/25/19 23:50 - Orders/Labs/Meds Orders: Active Orders 24 hr Category Date Time Status Enema [RC] ASDIRECTED Care 10/25/19 21:59 Active CULTURE BLOOD [BC] Stat Lab 10/25/19 21:40 Received CULTURE BLOOD [BC] Stat Lab 10/25/19 21:48 Received Blood Culture x2 Reflex Set [OM.PC] Stat Oth 10/25/19 20:56 Ordered Labs: Laboratory Tests 10/25/19 10/25/19 10/25/19 Range/Units 21:00 21:40 21:48 WBC (3.98-10.04) K/mm3 RBC (3.98-5.22) M/mm3 Hgb (11.2-15.7) gm/dl Hct (34.1-44.9) % MCV (79.4-94.8) fl MCH (25.6-32.2) pg MCHC (32.2-35.5) g/dl RDW Std Deviation (36.4-46.3) fL Plt Count (182-369) K/mm3 MPV (9.4-12.3) fl Neut % (Auto) (34.0-71.1) % Lymph % (Auto) (19.3-51.7) % Emery % (Auto) (4.7-12.5) % Eos % (Auto) (0.7-5.8) Baso % (Auto) (0.1-1.2) % Neut # (Auto) (1.56-6.13) K/mm3 Lymph # (Auto) (1.18-3.74) K/mm3 Emery # (Auto) (0.24-0.36) K/mm3 Eos # (Auto) (0.04-0.36) K/mm3 Baso # (Auto) (0.01-0.08) K/mm3 Manual Slide Review PT (9.7-12.0) SECONDS INR Sodium (136-145) mEq/L Potassium (3.5-5.1) mEq/L Chloride (98-107) mEq/L Carbon Dioxide (21-32) mEq/L Anion Gap (5-15) BUN (7-18) mg/dL Creatinine (0.55-1.02) mg/dL Est Cr Clr Drug Dosing mL/min Estimated GFR (MDRD) (>60) mL/min BUN/Creatinine Ratio (14-18) Glucose (74-106) mg/dL Lactic Acid 2.3 H* (0.4-2.0) mmol/L Calcium (8.5-10.1) mg/dL Total Bilirubin (0.2-1.0) mg/dL AST (15-37) U/L ALT (14-59) U/L Alkaline Phosphatase (46-116) U/L C-Reactive Protein 13.9 H* (<1.0) mg/dL Total Protein (6.4-8.2) g/dl Albumin (3.4-5.0) g/dl Globulin gm/dL Albumin/Globulin Ratio (1-2) Urine Color Yellow (Yellow) Urine Appearance Clear (Clear) Urine pH 7.0 (5.0-8.0) Ur Specific Carrington 1.020 (1.005-1.030) Urine Protein Negative (Negative) Urine Glucose (UA) Negative (Negative) Urine Ketones Negative (Negative) Urine Occult Blood Trace-lysed H (Negative) Urine Nitrite Negative (Negative) Urine Bilirubin Negative (Negative) Urine Urobilinogen 0.2 (0.2-1.0) Ur Leukocyte Esterase Negative (Negative) Urine RBC 0-5 (0-5) /hpf Urine WBC 0-5 (0-5) /hpf Ur Squamous Epith Cells Not seen (0-5) /hpf Urine Bacteria Rare (FEW) /hpf Urine Mucus Not seen (FEW) /hpf 03/05/20 03/05/20 03/05/20 Range/Units 21:48 21:48 21:48 WBC 26.66 H (3.98-10.04) K/mm3 RBC 3.42 L (3.98-5.22) M/mm3 Hgb 8.7 L (11.2-15.7) gm/dl Hct 28.8 L (34.1-44.9) % MCV 84.2 (79.4-94.8) fl MCH 25.4 L (25.6-32.2) pg MCHC 30.2 L (32.2-35.5) g/dl RDW Std Deviation 42.6 (36.4-46.3) fL Plt Count 684 H D (182-369) K/mm3 MPV 9.0 L (9.4-12.3) fl Neut % (Auto) 93.5 H (34.0-71.1) % Lymph % (Auto) 4.6 L (19.3-51.7) % Emery % (Auto) 1.3 L (4.7-12.5) % Eos % (Auto) 0.2 L (0.7-5.8) Baso % (Auto) 0.1 (0.1-1.2) % Neut # (Auto) 24.95 H (1.56-6.13) K/mm3 Lymph # (Auto) 1.22 (1.18-3.74) K/mm3 Emery # (Auto) 0.34 (0.24-0.36) K/mm3 Eos # (Auto) 0.04 (0.04-0.36) K/mm3 Baso # (Auto) 0.02 (0.01-0.08) K/mm3 Manual Slide Review Abnormal smear PT 10.5 (9.7-12.0) SECONDS INR 0.96 Sodium 137 (136-145) mEq/L Potassium 3.6 (3.5-5.1) mEq/L Chloride 97 L (98-107) mEq/L Carbon Dioxide 29 (21-32) mEq/L Anion Gap 14.6 (5-15) BUN 11 (7-18) mg/dL Creatinine 0.8 (0.55-1.02) mg/dL Est Cr Clr Drug Dosing 61.02 mL/min Estimated GFR (MDRD) > 60 (>60) mL/min BUN/Creatinine Ratio 13.8 L (14-18) Glucose 107 H (74-106) mg/dL Lactic Acid (0.4-2.0) mmol/L Calcium 9.2 (8.5-10.1) mg/dL Total Bilirubin 0.3 (0.2-1.0) mg/dL AST 20 (15-37) U/L ALT 17 (14-59) U/L Alkaline Phosphatase 146 H (46-116) U/L C-Reactive Protein (<1.0) mg/dL Total Protein 7.2 (6.4-8.2) g/dl Albumin 2.2 L (3.4-5.0) g/dl Globulin 5.0 gm/dL Albumin/Globulin Ratio 0.4 L (1-2) Urine Color (Yellow) Urine Appearance (Clear) Urine pH (5.0-8.0) Ur Specific Carrington (1.005-1.030) Urine Protein (Negative) Urine Glucose (UA) (Negative) Urine Ketones (Negative) Urine Occult Blood (Negative) Urine Nitrite (Negative) Urine Bilirubin (Negative) Urine Urobilinogen (0.2-1.0) Ur Leukocyte Esterase (Negative) Urine RBC (0-5) /hpf Urine WBC (0-5) /hpf Ur Squamous Epith Cells (0-5) /hpf Urine Bacteria (FEW) /hpf Urine Mucus (FEW) /hpf Meds: Medications Discontinued Medications Generic Name Dose Route Start Last Admin Trade Name Freq PRN Reason Stop Dose Admin Hydromorphone HCl 0.5 mg 10/25/19 21:12 10/25/19 21:51 Dilaudid IVPUSH 10/25/19 21:13 0.5 mg ONETIME ONE Administration Levofloxacin/Dextrose 750 mg/ 150 mls @ 100 mls/hr 10/25/19 22:45 10/25/19 23 :02 Premix IV 10/26/19 00:14 100 mls/hr ONETIME ONE Administration Sodium Chloride 1,000 mls @ 150 mls/hr 10/25/19 22:45 10/25/19 23:02 Normal Saline IV 150 mls/hr ASDIRECTED IVONNE Administration Vancomycin HCl 1.25 gm/ Sodium 250 mls @ 150 mls/hr 10/25/19 23:11 10/25/19 23:29 Chloride IV 10/26/19 00:50 150 mls/hr ONETIME ONE Administration Ibuprofen 600 mg 10/25/19 20:58 10/25/19 21:51 Motrin PO 10/25/19 20:59 600 mg ONETIME ONE Administration - Re-Assessments/Exams Free Text/Narrative Re-Assessment/Exam: On exam, patient is warm to the touch, especially in the chest area around her port insertion site. A recheck of her temperature showed a fever of 101.0 temporal. Based on this finding and her recent port insertion, we will do a complete septic work-up, as well as an abdomen x-ray to assess for constipation. I have ordered a CBC, CMP, lactic acid, PT/INR, blood cultures from the peripheral as well as the port, chest x-ray, urinalysis, and abdomen 2 view. Patient does currently have chills. Have ordered ibuprofen 600 mg to be given for her fever. Have also ordered Dilaudid 0.5 mg for her back pain. 10/25/19 22:00 X-ray of the abdomen and pelvis showed increased stool throughout the rectal vault and the descending colon. I ordered a soapsuds enema. 10/25/19 23:15 Hematology was significant for a WBC elevated at 26.6, hemoglobin decreased to 8.7, platelets 684, lactic acid elevated at 2.6, CRP elevated at 13.9. Repeat temperature is 100.5 temporal. I have ordered maintenance IVF, as well as levaquin IV. Pt did have a large bowel movement after the soap suds enema and states that her abdominal pain and back pain has resolved. Discussed admission for sepsis with hospitalist, Dr. Jay. She felt patient would be best cared for with oncology services available. Called [facility] and spoke with oncologist on-call, Dr. St. He recommended that we start Vancomycin in addition to the Levaquin and discuss admission with a oncology consult with the hospitalist. Spoke with hospitalist Dr. Castle. She accepted pt for transfer with direct admission. Pt will be transferred via ground ambulance. Departure - Departure Time of Disposition: 23:10 Disposition: DC/Tfer to [facility] 02 Condition: Fair Clinical Impression: Sepsis Qualifiers: Sepsis type: sepsis due to unspecified organism Sepsis acute organ dysfunction status: without acute organ dysfunction Qualified Code(s): A41.9 - Sepsis, unspecified organism - Discharge Information Referrals: Ping Tamez MD [Primary Care Provider] - Forms: ED Department Discharge Sepsis Event Note - Evaluation Sepsis Screening Result: No Definite Risk - Focused Exam Date Exam was Performed: 10/26/19 Time Exam was Performed: 12:11 - My Orders Last 24 Hours: My Active Orders 10/25/19 20:56 Blood Culture x2 Reflex Set [OM.PC] Stat 10/25/19 21:40 CULTURE BLOOD [BC] Stat 10/25/19 21:48 CULTURE BLOOD [BC] Stat 10/25/19 21:59 Enema [RC] ASDIRECTED - Assessment/Plan Last 24 Hours: My Active Orders 10/25/19 20:56 Blood Culture x2 Reflex Set [OM.PC] Stat 10/25/19 21:40 CULTURE BLOOD [BC] Stat 10/25/19 21:48 CULTURE BLOOD [BC] Stat 10/25/19 21:59 Enema [RC] ASDIRECTED
[2019-10-25] MEDS ORDERED: HYDROmorphone 0.5 MG/0.5 ML Syringe IVPUSH ONE (21:12)
[2019-10-25] MEDS ORDERED: Sodium Chloride 0.9% 1,000 ML IV SCH (22:45)
[2019-10-25] MEDS ORDERED: Levofloxacin/Dextrose 5%-Water 750 MG in Premix Bag 1 BAG IV ONE (22:45)
--- NOTE | 2019-10-26 07:42 | CR ---
Chest: Two views of the chest were obtained. Comparison: Prior chest x-ray of 10/14/19. Masslike density within the right lung base is seen. Findings are fairly stable from previous exam. Right-sided infusion port is seen which is an interval change. Lungs otherwise are clear without acute parenchymal change. Mild degenerative change is seen within the lower thoracic spine. Impression: 1. Interval placement of right-sided infusion port. 2. Continuing parenchymal mass within the right base. 3. Nothing acute is otherwise seen. Diagnostic code #3 This report was dictated in [place] Standard Time
--- NOTE | 2019-10-26 07:59 | CR ---
Abdomen: Supine and upright views of the abdomen were obtained. Comparison: Prior abdominal series of 08/23/19. Bowel gas pattern appears within normal limits. No free air is seen. Parenchymal density having a masslike appearance seen within the right lung base which is stable from prior chest x-ray. Bony structures are grossly intact. Impression: 1. Masslike density within the right lung base similar to previous exam. 2. Nothing acute is otherwise seen on two-view abdominal x-ray. Diagnostic code #3 This report was dictated in [place] Standard Time
== END 2019-10-25 23:50 ==
LOC: JD.ED 20:07
DX: A41.9 Sepsis, unspecified organism (principal); Z79.899 Other long term (current) drug therapy; Z88.8 Allergy status to other drugs, medicaments and biological substances; Z90.49 Acquired absence of other specified parts of digestive tract; Z87.891 Personal history of nicotine dependence
CPT/HCPCS: 36415; 71046; 74019; 80053; 81001; 83605; 85025; 85610; 86140; 87040; 96365; 96375; 99285; A9270; J1170; J1956; J3370; J7030; J7050

== ENCOUNTER 2019-11-04 15:32 | Emergency (ER) | payer MEDICAID ==
--- NOTE | 2019-11-04 16:22 | EDM.PDOC ---
ED HPI GENERAL MEDICAL PROBLEM - General Chief Complaint: Fever Stated Complaint: NOT FEELING WELL STAGE 4 CANCER Time Seen by Provider: 11/04/19 15:44 Source of Information: Reports: Patient, RN Notes Reviewed - History of Present Illness INITIAL COMMENTS - FREE TEXT/NARRATIVE: 54-year-old lady comes in with fever, chills, dizziness not feeling well. She feels more short of breath than usual, has generalized body aches. She does have history of stage IV lung cancer. She just had a Port-A-Cath placed a couple of weeks ago. At her first round of chemotherapy about a couple of weeks ago. Was evaluated here in this ED 12 days ago found to have fever, high white blood count of 26,660, C-reactive protein 13.9, lactic acid 2.3. As for to [facility] with diagnosis of probable sepsis. [place] cultures are reported to have remained negative. Treated with IV antibiotics while at [facility] having been discharged home 4 days ago. States that I have continued to have fever every day since discharge does have fever on arrival to ED at this time. Side been taking a lot of Tylenol, I am tired of taking Tylenol with her last dosage last evening, none today. 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 1400 - Related Data Allergies Allergy/AdvReac Type Severity Reaction Status Date / Time ketorolac [From Toradol] AdvReac Vomiting Verified 10/10/19 11:02 Home Meds: Home Meds traZODone HCl [Trazodone HCl] 150 mg PO BEDTIME 05/19/18 [History] Sertraline [Zoloft] 25 mg PO DAILY 08/14/19 [History] Albuterol Sulfate [Proair Hfa] 2 inh INH Q4HR PRN #1 [email or web address] 10/17/19 [Rx] Promethazine HCl 12.5 mg TOP Q6H PRN 10/26/19 [History] lamoTRIgine 50 mg PO BID 10/26/19 [History] Diphenoxylate HCl/Atropine [Lomotil] 2 mg PO ASDIRECTED 11/04/19 [History] HYDROmorphone [Dilaudid] 2 mg PO Q6H PRN 11/04/19 [History] Ondansetron [Zofran] 8 mg PO Q8H PRN 11/04/19 [History] Past Medical History HEENT History: Reports: Impaired Vision, Other (See Below) Other HEENT History: wears glasses Respiratory History: Reports: COPD, Other (See Below) Other Respiratory History: lung cancer Gastrointestinal History: Reports: Hepatitis Other Gastrointestinal History: "cured for hepatitis C" Genitourinary History: Reports: None HEALTH CENTER ASSISTANT History: Reports: Other HEALTH CENTER ASSISTANT History: partial hysterectomy, vaginal x 3 deliveries Musculoskeletal History: Reports: Osteoarthritis Other Musculoskeletal History: and scoliosis of the spine Neurological History: Reports: Migraines, Seizure Psychiatric History: Reports: Anxiety, Depression, Suicide Attempt Immunologic History: Reports: Other (See Below) Other Immunologic History: Hep C- cured? Oncologic (Cancer) History: Reports: Liver, Lung, Metastatic Dermatologic History: Reports: Other (See Below) Other Dermatologic History: dry skin - Infectious Disease History Infectious Disease History: Reports: Chicken Pox, Hepatitis C Other Infectious Disease History: had treatment and now is clear since November. - Past Surgical History HEENT Surgical History: Reports: Oral Surgery Other HEENT Surgeries/Procedures: upper dentures Respiratory Surgical History: Reports: None GI Surgical History: Reports: Appendectomy, Cholecystectomy Female Surgical History: Reports: Hysterectomy Neurological Surgical History: Reports: None Musculoskeletal Surgical History: Reports: None Social & Family History - Family History Family Medical History: Noncontributory Cardiac: Reports: CAD Oncologic: Reports: Breast - Tobacco Use Smoking Status *Q: Former Smoker Used Tobacco, but Quit: Yes Month/Year Tobacco Last Used: 2 months - Caffeine Use Caffeine Use: Reports: Coffee, Soda Other Caffeine Use: 2 cups a day sometimes 3 - Recreational Drug Use Recreational Drug Use: No - Living Situation & Occupation Living situation: Reports: , with Family (Daughter, her 2 kids, and her boyfriend) Occupation: Disabled ED ROS GENERAL - Review of Systems Review Of Systems: See Below Constitutional: Reports: Fever, Chills HEENT: Denies: Sinus Problem, Throat Pain Respiratory: Reports: Shortness of Breath, Wheezing, Cough. Denies: Sputum Cardiovascular: Reports: Chest Pain (With coughing) Endocrine: Reports: Fatigue GI/Abdominal: Denies: Abdominal Pain, Vomiting : Denies: Dysuria, Frequency Musculoskeletal: Reports: Other (Analyzed achiness) Neurological: Reports: Dizziness, Weakness (Analyzed) ED EXAM, GENERAL - Physical Exam Exam: See Below General Appearance: Alert, Mild Distress Eye Exam: Bilateral Eye: Proptosis Throat/Mouth: Normal Inspection Neck: Supple Respiratory/Chest: Respiratory Distress, Wheezing (Bilateral). No: Rhonchi ( Tachypnea) Cardiovascular: Regular Rate, Rhythm GI/Abdominal: Soft, Non-Tender. No: Guarding Back Exam: No: CVA Tenderness (L), CVA Tenderness (R) Extremities: Normal Inspection. No: Pedal Edema, Leg Pain, Increased Warmth Neurological: Alert, Oriented, No Motor/Sensory Deficits Skin Exam: Warm, Dry, No Rash Course - Vital Signs Last Recorded V/S: Last Vital Signs Temp 213.3 F H 11/04/19 19:08 Pulse 80 11/04/19 15:41 Resp 20 11/04/19 15:41 BP 112/68 11/04/19 15:41 Pulse Ox 99 11/04/19 15:41 - Orders/Labs/Meds Labs: Laboratory Tests 11/04/19 11/04/19 11/04/19 Range/Units 16:25 16:55 16:55 WBC 10.79 H (3.98-10.04) K/mm3 RBC 3.59 L (3.98-5.22) M/mm3 Hgb 9.7 L (11.2-15.7) gm/dl Hct 30.2 L (34.1-44.9) % MCV 84.1 (79.4-94.8) fl MCH 27.0 (25.6-32.2) pg MCHC 32.1 L (32.2-35.5) g/dl RDW Std Deviation 46.1 (36.4-46.3) fL Plt Count 663 H (182-369) K/mm3 MPV 8.2 L (9.4-12.3) fl Neut % (Auto) 63.7 (34.0-71.1) % Lymph % (Auto) 13.4 L (19.3-51.7) % [place] % (Auto) 20.8 H (4.7-12.5) % Eos % (Auto) 1.2 (0.7-5.8) Baso % (Auto) 0.3 (0.1-1.2) % Neut # (Auto) 6.88 H (1.56-6.13) K/mm3 Lymph # (Auto) 1.45 (1.18-3.74) K/mm3 [place] # (Auto) 2.24 H (0.24-0.36) K/mm3 Eos # (Auto) 0.13 (0.04-0.36) K/mm3 Baso # (Auto) 0.03 (0.01-0.08) K/mm3 Manual Slide Review Abnormal smear Sodium (136-145) mEq/L Potassium (3.5-5.1) mEq/L Chloride (98-107) mEq/L Carbon Dioxide (21-32) mEq/L Anion Gap (5-15) BUN (7-18) mg/dL Creatinine (0.55-1.02) mg/dL Est Cr Clr Drug Dosing mL/min Estimated GFR (MDRD) (>60) mL/min BUN/Creatinine Ratio (14-18) Glucose (74-106) mg/dL Lactic Acid (0.4-2.0) mmol/L Calcium (8.5-10.1) mg/dL Total Bilirubin (0.2-1.0) mg/dL AST (15-37) U/L ALT (14-59) U/L Alkaline Phosphatase (46-116) U/L C-Reactive Protein 25.3 H* (<1.0) mg/dL Total Protein (6.4-8.2) g/dl Albumin (3.4-5.0) g/dl Globulin gm/dL Albumin/Globulin Ratio (1-2) Urine Color Yellow (Yellow) Urine Appearance Clear (Clear) Urine pH 7.0 (5.0-8.0) Ur Specific [place] 1.020 (1.005-1.030) Urine Protein Negative (Negative) Urine Glucose (UA) Negative (Negative) Urine Ketones Negative (Negative) Urine Occult Blood 2+ H (Negative) Urine Nitrite Negative (Negative) Urine Bilirubin Negative (Negative) Urine Urobilinogen 0.2 (0.2-1.0) Ur Leukocyte Esterase Negative (Negative) Urine RBC 5-10 H (0-5) /hpf Urine WBC 0-5 (0-5) /hpf Ur Epithelial Cells 0-5 (0-5) /hpf Urine Bacteria Rare (FEW) /hpf Urine Mucus Rare (FEW) /hpf 11/04/19 11/04/19 Range/Units 16:55 16:55 WBC (3.98-10.04) K/mm3 RBC (3.98-5.22) M/mm3 Hgb (11.2-15.7) gm/dl Hct (34.1-44.9) % MCV (79.4-94.8) fl MCH (25.6-32.2) pg MCHC (32.2-35.5) g/dl RDW Std Deviation (36.4-46.3) fL Plt Count (182-369) K/mm3 MPV (9.4-12.3) fl Neut % (Auto) (34.0-71.1) % Lymph % (Auto) (19.3-51.7) % [place] % (Auto) (4.7-12.5) % Eos % (Auto) (0.7-5.8) Baso % (Auto) (0.1-1.2) % Neut # (Auto) (1.56-6.13) K/mm3 Lymph # (Auto) (1.18-3.74) K/mm3 [place] # (Auto) (0.24-0.36) K/mm3 Eos # (Auto) (0.04-0.36) K/mm3 Baso # (Auto) (0.01-0.08) K/mm3 Manual Slide Review Sodium 132 L (136-145) mEq/L Potassium 2.8 L (3.5-5.1) mEq/L Chloride 92 L (98-107) mEq/L Carbon Dioxide 30 (21-32) mEq/L Anion Gap 12.8 (5-15) BUN 3 L (7-18) mg/dL Creatinine 0.7 (0.55-1.02) mg/dL Est Cr Clr Drug Dosing 67.10 mL/min Estimated GFR (MDRD) > 60 (>60) mL/min BUN/Creatinine Ratio 4.3 L (14-18) Glucose 89 (74-106) mg/dL Lactic Acid 1.4 (0.4-2.0) mmol/L Calcium 8.4 L (8.5-10.1) mg/dL Total Bilirubin 0.5 (0.2-1.0) mg/dL AST 15 (15-37) U/L ALT 15 (14-59) U/L Alkaline Phosphatase 155 H (46-116) U/L C-Reactive Protein (<1.0) mg/dL Total Protein 7.1 (6.4-8.2) g/dl Albumin 2.6 L (3.4-5.0) g/dl Globulin 4.5 gm/dL Albumin/Globulin Ratio 0.6 L (1-2) Urine Color (Yellow) Urine Appearance (Clear) Urine pH (5.0-8.0) Ur Specific [place] (1.005-1.030) Urine Protein (Negative) Urine Glucose (UA) (Negative) Urine Ketones (Negative) Urine Occult Blood (Negative) Urine Nitrite (Negative) Urine Bilirubin (Negative) Urine Urobilinogen (0.2-1.0) Ur Leukocyte Esterase (Negative) Urine RBC (0-5) /hpf Urine WBC (0-5) /hpf Ur Epithelial Cells (0-5) /hpf Urine Bacteria (FEW) /hpf Urine Mucus (FEW) /hpf Meds: Medications Discontinued Medications Generic Name Dose Route Start Last Admin Trade Name Rowan PRN Reason Stop Dose Admin Acetaminophen 650 mg 11/04/19 18:04 11/04/19 18:11 Tylenol PO 11/04/19 18:05 650 mg NOW ONE Administration Acetaminophen Confirm 11/04/19 18:23 11/04/19 18:27 Tylenol Administered 11/04/19 18:24 Not Given Dose 650 mg .ROUTE .STK-MED ONE Sodium Chloride 1,000 mls @ 999 mls/hr 11/04/19 16:30 11/04/19 16:40 Normal Saline IV 999 mls/hr ONETIME IVONNE Administration Lactated Ringer's 1,000 mls @ 75 mls/hr 11/04/19 18:30 11/04/19 18:28 Ringers, Lactated IV 75 mls/hr ASDIRECTED IVONNE Administration Cefepime HCl 2 gm/ Premix 50 mls @ 100 mls/hr 11/04/19 18:24 11/04/19 18:56 IV 11/04/19 18:53 100 mls/hr ONETIME ONE Administration Lactated Ringer's Confirm 11/04/19 18:24 11/04/19 18:42 Ringers, Lactated Administered 11/04/19 18:25 Not Given Dose 1,000 mls @ as directed .ROUTE .STK-MED ONE Potassium Chloride 40 meq 11/04/19 18:31 11/04/19 18:55 Klor-Con M20 PO 11/04/19 18:32 40 meq ONETIME ONE Administration Potassium Chloride 20 meq 11/04/19 18:31 11/04/19 18:56 Klor-Con 10 PO 11/04/19 18:32 20 meq ONETIME ONE Administration - Re-Assessments/Exams Free Text/Narrative Re-Assessment/Exam: 11/06/19 02:44 I did discuss this with Dr Jay regarding need for hospital admission. Dr Jay has [facility], believes with her recent chemo that she could become more ill very quickly, needs higher level of care. I did make arrangements for her to be transferred to [facility], Dr Avitia, Hospitalist, accepting Physician. Cefepime 2 grams IV given, transported by ground ambulance. Departure - Departure Time of Disposition: 19:00 Disposition: DC/Tfer to Acute Hospital 02 Clinical Impression: Lung cancer, Immunocompromised state Pneumonia Qualifiers: Pneumonia type: due to unspecified organism Laterality: right Lung location: lower lobe of lung Qualified Code(s): J18.9 - Pneumonia, unspecified organism - Discharge Information Referrals: Ping Tamez MD [Primary Care Provider] - Forms: ED Department Discharge Sepsis Event Note - Evaluation Sepsis Screening Result: Sepsis Risk - Focused Exam Date Exam was Performed: 11/06/19 Time Exam was Performed: 02:43
[2019-11-04] MEDS ORDERED: Sodium Chloride 0.9% 1,000 ML IV SCH (16:30)
--- NOTE | 2019-11-04 17:42 | CR ---
Chest: 2 views of the chest were obtained. Comparison: Prior chest x-ray of 10/25/19. Parenchymal density within the right lung base is seen. New nodular density is noted within the left lung base. Lungs are hyperinflated compatible with emphysematous change. Infusion port is seen on the right side. Heart size and mediastinum are normal. Upper lungs are clear. Impression: 1. Parenchymal density within the right lung base. Findings are seen on prior study but may be increased. Uncertain if this represents increasing neoplasm or represents superimposed pneumonia. 2. Small nodular density within the left base. This is an interval change and difficult to exclude developing nodule. Recommend treatment with antibiotics and repeat chest x-ray 2 weeks after antibiotic therapy is complete to see if findings resolve or persist. Diagnostic code #9 Study was dictated in MDT
[2019-11-04] MEDS ORDERED: Acetaminophen 325 MG Tab PO ONE (18:04)
[2019-11-04] MEDS ORDERED: Acetaminophen 325 MG Tab ONE (18:23)
[2019-11-04] MEDS ORDERED: Cefepime 2 GM in Premix Bag 1 BAG IV ONE (18:24)
[2019-11-04] MEDS ORDERED: Lactated Ringers 1,000 ML ONE (18:24)
[2019-11-04] MEDS ORDERED: Lactated Ringers 1,000 ML IV SCH (18:30)
[2019-11-04] MEDS ORDERED: Potassium Chloride 10 MEQ Tab.ER PO ONE (18:31)
[2019-11-04] MEDS ORDERED: Potassium Chloride 20 MEQ Tab.ER PO ONE (18:31)
== END 2019-11-04 20:50 ==
LOC: JD.ED 15:32
DX: J18.9 Pneumonia, unspecified organism (principal); C34.90 Malignant neoplasm of unspecified part of unspecified bronchus or lung; D89.9 Disorder involving the immune mechanism, unspecified; J44.9 Chronic obstructive pulmonary disease, unspecified; F41.9 Anxiety disorder, unspecified; M41.9 Scoliosis, unspecified; Z87.891 Personal history of nicotine dependence; F32.9 Major depressive disorder, single episode, unspecified; Z88.8 Allergy status to other drugs, medicaments and biological substances
CPT/HCPCS: 36415; 71046; 80053; 81001; 83605; 85025; 86140; 87040; 87804; 96361; 96365; 99285; A9270; J0692; J7030; J7120

== ENCOUNTER 2019-11-11 12:14 | Inpatient (IN) | payer MEDICAID ==
[2019-11-11] MEDS ORDERED: Sodium Chloride 0.9% 10 ML Syringe FLUSH PRN (13:05)
--- NOTE | 2019-11-11 14:46 | EDM.PDOC ---
ED HPI GENERAL MEDICAL PROBLEM - General Chief Complaint: ENT Problem Stated Complaint: SORE THROAT AND RUNNY NOSE Time Seen by Provider: 11/11/19 12:35 Source of Information: Reports: Patient, RN Notes Reviewed - History of Present Illness INITIAL COMMENTS - FREE TEXT/NARRATIVE: 54 year old female comes in with acute onset this past morning of sore throat, nasal and sinus congestion. She has hx of recently diagnosed lung cancer, had her first dose of chemo about 3 1/2 wks ago. She has had fevers on and off for the past 3 weeks with [address] [facility] just released from [facility] 3 days ago. She not currently coughing, occasional chills but no current fever. No abd pain nausea or vomiting. Her mouth feels dry, not able to eat or drink much this morning. Throat Pain Score (Numeric/FACES): 8 - Related Data Allergies Allergy/AdvReac Type Severity Reaction Status Date / Time ketorolac [From Toradol] AdvReac Vomiting Verified 11/11/19 13:27 Home Meds: Home Meds traZODone HCl [Trazodone HCl] 150 mg PO BEDTIME 05/19/18 [History] Sertraline [Zoloft] 25 mg PO DAILY 08/14/19 [History] lamoTRIgine 75 mg PO BID 10/26/19 [History] Diphenoxylate HCl/Atropine [Lomotil] 2 mg PO QID PRN 11/04/19 [History] HYDROmorphone [Dilaudid] 2 mg PO Q6H PRN 11/04/19 [History] Baclofen 5 mg PO TID PRN 11/11/19 [History] Naproxen 250 tab PO Q12HR PRN 11/11/19 [History] lamoTRIgine [Lamotrigine] 25 tab PO ASDIRECTED 11/11/19 [History] traMADol [Ultram] 50 mg PO Q6H PRN 11/11/19 [History] Past Medical History HEENT History: Reports: Impaired Vision, Other (See Below) Other HEENT History: wears glasses Respiratory History: Reports: COPD, Other (See Below) Other Respiratory History: lung cancer Gastrointestinal History: Reports: Hepatitis Other Gastrointestinal History: "cured for hepatitis C" Genitourinary History: Reports: None RECRUITER ACCOUNT MANAGER History: Reports: Other RECRUITER ACCOUNT MANAGER History: partial hysterectomy, vaginal x 3 deliveries Musculoskeletal History: Reports: Osteoarthritis Other Musculoskeletal History: and scoliosis of the spine Neurological History: Reports: Migraines, Seizure Psychiatric History: Reports: Anxiety, Depression, Suicide Attempt Immunologic History: Reports: Other (See Below) Other Immunologic History: Hep C- cured? Oncologic (Cancer) History: Reports: Liver, Lung, Metastatic Dermatologic History: Reports: Other (See Below) Other Dermatologic History: dry skin - Infectious Disease History Infectious Disease History: Reports: Chicken Pox, Hepatitis C Other Infectious Disease History: had treatment and now is clear since November. - Past Surgical History HEENT Surgical History: Reports: Oral Surgery Other HEENT Surgeries/Procedures: upper dentures Respiratory Surgical History: Reports: None GI Surgical History: Reports: Appendectomy, Cholecystectomy Female Surgical History: Reports: Hysterectomy Neurological Surgical History: Reports: None Musculoskeletal Surgical History: Reports: None Social & Family History - Family History Family Medical History: Noncontributory Cardiac: Reports: CAD Oncologic: Reports: Breast - Tobacco Use Smoking Status *Q: Former Smoker Used Tobacco, but Quit: Yes Month/Year Tobacco Last Used: 3 months ago - Caffeine Use Caffeine Use: Reports: Coffee, Soda Other Caffeine Use: 2 cups a day sometimes 3 - Recreational Drug Use Recreational Drug Use: No - Living Situation & Occupation Living situation: Reports: , with Family (Daughter, her 2 kids, and her boyfriend) Occupation: Disabled ED ROS GENERAL - Review of Systems Review Of Systems: See Below Constitutional: Reports: Chills. Denies: Fever HEENT: Reports: Rhinitis, Sinus Problem, Throat Pain Respiratory: Denies: Shortness of Breath Cardiovascular: Denies: Chest Pain GI/Abdominal: Denies: Abdominal Pain, Nausea, Vomiting Musculoskeletal: Denies: Leg Pain Skin: Denies: Rash Neurological: Reports: Dizziness ED EXAM, GENERAL - Physical Exam Exam: See Below General Appearance: Alert, Mild Distress Throat/Mouth: Other (oral mucosa is dry, pharynx mildly inflamed) Respiratory/Chest: No Respiratory Distress, Lungs Clear, Normal Breath Sounds Cardiovascular: Regular Rate, Rhythm GI/Abdominal: Non-Tender Extremities: No: Pedal Edema, Leg Pain, Redness Neurological: Alert, Oriented, No Motor/Sensory Deficits Skin Exam: Warm, Dry, No Rash Course - Vital Signs Last Recorded V/S: Last Vital Signs Temp 97.9 F 11/11/19 17:58 Pulse 79 11/11/19 17:58 Resp 16 11/11/19 17:58 BP 117/44 L 11/11/19 17:58 Pulse Ox 94 L 11/11/19 17:58 - Orders/Labs/Meds Orders: Active Orders 24 hr Category Date Time Status Admission Status [Patient Status] [ADT] Routine ADT 11/11/19 17:31 Active Peripheral IV Care [RC] Q2HR Care 11/11/19 13:08 Active CXR [Chest 2V] [CR] Stat Exams 11/11/19 13:11 Taken CULTURE BLOOD [BC] Stat Lab 11/11/19 15:40 Received CULTURE BLOOD [BC] Stat Lab 11/11/19 16:59 Received CULTURE STREP A CONFIRMATION [RM] Stat Lab 11/11/19 13:11 Results STREP SCRN A RAPID W CULT CONF [RM] Stat Lab 11/11/19 13:11 Results Sodium Chloride 0.9% [Saline Flush] Med 11/11/19 13:05 Active 10 ml FLUSH ASDIRECTED PRN Peripheral IV Insertion Adult [OM.PC] Stat Oth 11/11/19 13:08 Ordered Medication Orders Sodium Chloride (Saline Flush) 10 ml FLUSH ASDIRECTED PRN PRN Reason: Keep Vein Open Last Admin: 11/11/19 13:21 Dose: 10 ml Labs: Laboratory Tests 11/11/19 11/11/19 11/11/19 Range/Units 14:11 14:11 14:11 WBC 33.21 H (3.98-10.04) K/mm3 RBC 3.48 L (3.98-5.22) M/mm3 Hgb 9.2 L (11.2-15.7) gm/dl Hct 29.4 L (34.1-44.9) % MCV 84.5 (79.4-94.8) fl MCH 26.4 (25.6-32.2) pg MCHC 31.3 L (32.2-35.5) g/dl RDW Std Deviation 50.8 H (36.4-46.3) fL Plt Count 666 H (182-369) K/mm3 MPV 7.9 L (9.4-12.3) fl Neut % (Auto) 85.2 H (34.0-71.1) % Lymph % (Auto) 4.9 L (19.3-51.7) % [place] % (Auto) 7.1 (4.7-12.5) % Eos % (Auto) 2.0 (0.7-5.8) Baso % (Auto) 0.2 (0.1-1.2) % Neut # (Auto) 28.27 H (1.56-6.13) K/mm3 Lymph # (Auto) 1.62 (1.18-3.74) K/mm3 [place] # (Auto) 2.37 H (0.24-0.36) K/mm3 Eos # (Auto) 0.67 H (0.04-0.36) K/mm3 Baso # (Auto) 0.07 (0.01-0.08) K/mm3 Manual Slide Review Abnormal smear Sodium 139 (136-145) mEq/L Potassium 3.7 (3.5-5.1) mEq/L Chloride 101 (98-107) mEq/L Carbon Dioxide 28 (21-32) mEq/L Anion Gap 14.7 (5-15) BUN 4 L (7-18) mg/dL Creatinine 0.9 (0.55-1.02) mg/dL Est Cr Clr Drug Dosing 54.24 mL/min Estimated GFR (MDRD) > 60 (>60) mL/min BUN/Creatinine Ratio 4.4 L (14-18) Glucose 111 H (74-106) mg/dL Lactic Acid (0.4-2.0) mmol/L Calcium 8.7 (8.5-10.1) mg/dL Total Bilirubin 0.3 (0.2-1.0) mg/dL AST 11 L (15-37) U/L ALT 9 L (14-59) U/L Alkaline Phosphatase 173 H (46-116) U/L C-Reactive Protein 23.8 H* (<1.0) mg/dL Total Protein 6.4 (6.4-8.2) g/dl Albumin 2.0 L (3.4-5.0) g/dl Globulin 4.4 gm/dL Albumin/Globulin Ratio 0.5 L (1-2) Urine Color (Yellow) Urine Appearance (Clear) Urine pH (5.0-8.0) Ur Specific [place] (1.005-1.030) Urine Protein (Negative) Urine Glucose (UA) (Negative) Urine Ketones (Negative) Urine Occult Blood (Negative) Urine Nitrite (Negative) Urine Bilirubin (Negative) Urine Urobilinogen (0.2-1.0) Ur Leukocyte Esterase (Negative) Urine RBC (0-5) /hpf Urine WBC (0-5) /hpf Ur Squamous Epith Cells (0-5) /hpf Urine Bacteria (FEW) /hpf Urine Mucus (FEW) /hpf 11/11/19 11/11/19 Range/Units 14:11 15:05 WBC (3.98-10.04) K/mm3 RBC (3.98-5.22) M/mm3 Hgb (11.2-15.7) gm/dl Hct (34.1-44.9) % MCV (79.4-94.8) fl MCH (25.6-32.2) pg MCHC (32.2-35.5) g/dl RDW Std Deviation (36.4-46.3) fL Plt Count (182-369) K/mm3 MPV (9.4-12.3) fl Neut % (Auto) (34.0-71.1) % Lymph % (Auto) (19.3-51.7) % [place] % (Auto) (4.7-12.5) % Eos % (Auto) (0.7-5.8) Baso % (Auto) (0.1-1.2) % Neut # (Auto) (1.56-6.13) K/mm3 Lymph # (Auto) (1.18-3.74) K/mm3 [place] # (Auto) (0.24-0.36) K/mm3 Eos # (Auto) (0.04-0.36) K/mm3 Baso # (Auto) (0.01-0.08) K/mm3 Manual Slide Review Sodium (136-145) mEq/L Potassium (3.5-5.1) mEq/L Chloride (98-107) mEq/L Carbon Dioxide (21-32) mEq/L Anion Gap (5-15) BUN (7-18) mg/dL Creatinine (0.55-1.02) mg/dL Est Cr Clr Drug Dosing mL/min Estimated GFR (MDRD) (>60) mL/min BUN/Creatinine Ratio (14-18) Glucose (74-106) mg/dL Lactic Acid 1.6 (0.4-2.0) mmol/L Calcium (8.5-10.1) mg/dL Total Bilirubin (0.2-1.0) mg/dL AST (15-37) U/L ALT (14-59) U/L Alkaline Phosphatase (46-116) U/L C-Reactive Protein (<1.0) mg/dL Total Protein (6.4-8.2) g/dl Albumin (3.4-5.0) g/dl Globulin gm/dL Albumin/Globulin Ratio (1-2) Urine Color Yellow (Yellow) Urine Appearance Clear (Clear) Urine pH 8.5 H (5.0-8.0) Ur Specific [place] 1.020 (1.005-1.030) Urine Protein Negative (Negative) Urine Glucose (UA) Negative (Negative) Urine Ketones Negative (Negative) Urine Occult Blood Trace-intact H (Negative) Urine Nitrite Negative (Negative) Urine Bilirubin Negative (Negative) Urine Urobilinogen 1.0 (0.2-1.0) Ur Leukocyte Esterase Negative (Negative) Urine RBC 0-5 (0-5) /hpf Urine WBC 0-5 (0-5) /hpf Ur Squamous Epith Cells 0-5 (0-5) /hpf Urine Bacteria Few (FEW) /hpf Urine Mucus Not seen (FEW) /hpf Meds: Medications Generic Name Dose Route Start Last Admin Trade Name Freq PRN Reason Stop Dose Admin Sodium Chloride 10 ml 11/11/19 13:05 11/11/19 13:21 Saline Flush FLUSH 10 ml ASDIRECTED PRN Administration Keep Vein Open Discontinued Medications Generic Name Dose Route Start Last Admin Trade Name Freq PRN Reason Stop Dose Admin Hydromorphone HCl 0.5 mg 11/11/19 14:39 11/11/19 15:43 Dilaudid IVPUSH 11/11/19 14:40 0.25 mg ONETIME ONE Administration - Re-Assessments/Exams Free Text/Narrative Re-Assessment/Exam: 11/11/19 16:34. Rapid strep neg, flu screen neg. WBC 33,200, CRP 23.8, lactic acid 1.6, afebrile, not tachycardic, BP has been good. CXR does not show pneumonia, UA clear. I have discussed this with Dr Olivera, manager community relations for [facility]. He recomends 2 blood cultures which have been done, Obs admission, antibioitics if indicated for sx. He recomends our Hospitalist phone consult Her Oncologist Dr Sandoval, [facility] for further guidance. Departure - Departure Time of Disposition: 16:46 Disposition: Home, Self-Care 01 Condition: Fair Clinical Impression: Pharyngitis Qualifiers: Pharyngitis/tonsillitis etiology: unspecified etiology Qualified Code(s): J02.9 - Acute pharyngitis, unspecified Leukocytosis Qualifiers: Leukocytosis type: unspecified Qualified Code(s): D72.829 - Elevated white blood cell count, unspecified Lung cancer Qualifiers: Laterality: right Lung location: unspecified part of lung Qualified Code(s): C34.91 - Malignant neoplasm of unspecified part of right bronchus or lung - Discharge Information Sepsis Event Note - Evaluation Sepsis Screening Result: No Definite Risk - Focused Exam Vital Signs: Vital Signs Temp Pulse Resp BP Pulse Ox 11/11/19 12:25 98.4 F 75 20 127/71 96 Date Exam was Performed: 11/11/19 Time Exam was Performed: 18:34 ED Communication - Discussed Case With (1) Discussed Case With (1): Admitting Provider (Tara, decision to admit at about 16;45) - My Orders Last 24 Hours: My Active Orders 11/11/19 13:05 Sodium Chloride 0.9% [Saline Flush] 10 ml FLUSH ASDIRECTED PRN 11/11/19 13:08 Peripheral IV Care [RC] Q2HR Peripheral IV Insertion Adult [OM.PC] Stat 11/11/19 13:11 CXR [Chest 2V] [CR] Stat CULTURE STREP A CONFIRMATION [RM] Stat STREP SCRN A RAPID W CULT CONF [RM] Stat 11/11/19 15:40 CULTURE BLOOD [BC] Stat 11/11/19 16:59 CULTURE BLOOD [BC] Stat 11/11/19 17:31 Admission Status [Patient Status] [ADT] Routine - Assessment/Plan Last 24 Hours: My Active Orders 11/11/19 13:05 Sodium Chloride 0.9% [Saline Flush] 10 ml FLUSH ASDIRECTED PRN 11/11/19 13:08 Peripheral IV Care [RC] Q2HR Peripheral IV Insertion Adult [OM.PC] Stat 11/11/19 13:11 CXR [Chest 2V] [CR] Stat CULTURE STREP A CONFIRMATION [RM] Stat STREP SCRN A RAPID W CULT CONF [RM] Stat 11/11/19 15:40 CULTURE BLOOD [BC] Stat 11/11/19 16:59 CULTURE BLOOD [BC] Stat 11/11/19 17:31 Admission Status [Patient Status] [ADT] Routine
[2019-11-11] MEDS: HYDROmorphone 0.5 MG/0.5 ML Syringe IVPUSH ONE ×2 (14:48→15:43)
[2019-11-11] MEDS ORDERED: Atropine/Diphenoxylate 0.025-2.5 MG Tab PO PRN ×3 (19:44→21:31)
[2019-11-11] MEDS ORDERED: HYDROMORPHONE 2 MG PO PRN (19:44)
[2019-11-11] MEDS ORDERED: Baclofen 10 MG Tab PO PRN (19:44)
[2019-11-11] MEDS ORDERED: LAMOTRIGINE PO SCH (19:45)
[2019-11-11] MEDS: cefTRIAXone 2 GM in Sodium Chloride 0.9% 100 ML IV SCH (20:48)
[2019-11-11] MEDS: Ondansetron 4 MG/2 ML SDV IV PRN (20:53)
--- NOTE | 2019-11-11 20:58 | PCM.HP.2 ---
H&P History of Present Illness - General Date of Service: 11/11/19 Admit Problem/Dx: Admission Diagnosis/Problem Admission Diagnosis/Problem Leukocytosis - History of Present Illness Initial Comments - Free Text/Narative: 54-year-old female who was recently diagnosed with lung cancer with mets to the liver has been hospitalized 4 times in the last 6 weeks. Patient was hospitalized here the first 2 times with pneumonia the first time with mycoplasma and RSV the second time secondary to pain. She was then seen in the emergency room and transferred to [place] 2 more times after her first dose of chemotherapy. She apparently was hospitalized last time for approximately 1 week and believes she was given IV antibiotics. She was just released from [facility] in [place] 3 days ago. Today she presents secondary to a sore throat that started this morning. She denies any cough does have occasional chills but no fever. No abdominal pain, nausea or vomiting. Her mouth does feel dry she is having difficulty eating and drinking because of throat pain. In the emergency room her rapid strep and flu were negative. Her white count was 33,200 and her C-reactive protein was 23.8. Lactic acid of 1.8. She was afebrile and not tachycardic. Blood pressure was good. Chest x-ray showed improvement from last x-ray with no pneumonia. UA was clear. Dr. Horner spoke with Dr. Olivera the on-call oncologist who recommended blood cultures and admission for observation. He also recommended speaking with her oncologist, Dr. Sandoval, tomorrow. Throat Pain Score (Numeric/FACES): 8 - Related Data Allergies/Adverse Reactions: Allergies Allergy/AdvReac Type Severity Reaction Status Date / Time ketorolac [From Toradol] AdvReac Vomiting Verified 11/11/19 13:27 Home Medications: Home Meds traZODone HCl [Trazodone HCl] 150 mg PO BEDTIME 05/19/18 [History] Sertraline [Zoloft] 25 mg PO DAILY 08/14/19 [History] lamoTRIgine 75 mg PO BID 10/26/19 [History] Diphenoxylate HCl/Atropine [Lomotil] 2 mg PO QID PRN 11/04/19 [History] HYDROmorphone [Dilaudid] 2 mg PO Q6H PRN 11/04/19 [History] Baclofen 5 mg PO TID PRN 11/11/19 [History] Naproxen 250 tab PO Q12HR PRN 11/11/19 [History] lamoTRIgine [Lamotrigine] 25 tab PO ASDIRECTED 11/11/19 [History] traMADol [Ultram] 50 mg PO Q6H PRN 11/11/19 [History] Past Medical History HEENT History: Reports: Impaired Vision, Other (See Below) Other HEENT History: wears glasses Respiratory History: Reports: COPD, Other (See Below) Other Respiratory History: lung cancer Gastrointestinal History: Reports: Hepatitis Other Gastrointestinal History: "cured for hepatitis C" Genitourinary History: Reports: None 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 Oncologic (Cancer) History: Reports: Liver, Lung, Metastatic Other Oncologic History: Last chemo-3 weeks ago-4 total treatments, next upcoming is the 2nd Dermatologic History: Reports: Other (See Below) Other Dermatologic History: dry skin - Infectious Disease History Infectious Disease History: Reports: Chicken Pox, Hepatitis C Other Infectious Disease History: had treatment and now is clear since November. - Past Surgical History HEENT Surgical History: Reports: Oral Surgery Other HEENT Surgeries/Procedures: upper dentures Respiratory Surgical History: Reports: None GI Surgical History: Reports: Appendectomy, Cholecystectomy Female Surgical History: Reports: Hysterectomy Neurological Surgical History: Reports: None Musculoskeletal Surgical History: Reports: None Social & Family History - Family History Family Medical History: Noncontributory Cardiac: Reports: CAD Oncologic: Reports: Breast - Tobacco Use Smoking Status *Q: Former Smoker Used Tobacco, but Quit: Yes Month/Year Tobacco Last Used: 3 months ago Second Hand Smoke Exposure: Yes - Caffeine Use Caffeine Use: Reports: Coffee, Soda Other Caffeine Use: 2 cups a day sometimes 3 - Recreational Drug Use Recreational Drug Use: No - Living Situation & Occupation Living situation: Reports: , with Family (Daughter, her 2 kids, and her boyfriend) Occupation: Disabled H&P Review of Systems - Review of Systems: Review Of Systems: Comprehensive ROS is negative, except as noted in HPI. Exam - Exam Exam: See Below - Vital Signs Vital Signs: Last Vital Signs Temp 97.9 F 11/11/19 17:58 Pulse 79 11/11/19 17:58 Resp 16 11/11/19 17:58 BP 117/44 L 11/11/19 17:58 Pulse Ox 94 L 11/11/19 17:58 Weight: 105 lb 6.4 oz - Exam Quality Assessment: No: Supplemental Oxygen General: Alert, Oriented, Severe Distress HEENT: Hearing Intact, Mucosa Moist & [place], Other (Right side of her uvula shows an ulcer. Posterior pharynx is erythematous) Neck: Supple, Trachea Midline, Lymphadenopathy (Tender lymph node left submandibular) Lungs: Clear to Auscultation, Normal Respiratory Effort Cardiovascular: Regular Rate, Regular Rhythm GI/Abdominal Exam: Normal Bowel Sounds, Soft, Non-Tender, No Organomegaly, No Distention, No Abnormal Bruit, No Mass Extremities: Normal Inspection, Normal Range of Motion, Non-Tender, No Pedal Edema, Normal Capillary Refill Skin: Warm, Dry, Intact Neuro Extensive - Mental Status: Alert, Oriented x3, Normal Mood/Affect, Normal Cognition Psychiatric: Alert, Normal Affect, Normal Mood - Patient Data Lab Results Last 24 hrs: Laboratory Results - last 24 hr 11/11/19 11/11/19 11/11/19 Range/Units 14:11 14:11 14:11 WBC 33.21 H (3.98-10.04) K/mm3 RBC 3.48 L (3.98-5.22) M/mm3 Hgb 9.2 L (11.2-15.7) gm/dl Hct 29.4 L (34.1-44.9) % MCV 84.5 (79.4-94.8) fl MCH 26.4 (25.6-32.2) pg MCHC 31.3 L (32.2-35.5) g/dl RDW Std Deviation 50.8 H (36.4-46.3) fL Plt Count 666 H (182-369) K/mm3 MPV 7.9 L (9.4-12.3) fl Neut % (Auto) 85.2 H (34.0-71.1) % Lymph % (Auto) 4.9 L (19.3-51.7) % [place] % (Auto) 7.1 (4.7-12.5) % Eos % (Auto) 2.0 (0.7-5.8) Baso % (Auto) 0.2 (0.1-1.2) % Neut # (Auto) 28.27 H (1.56-6.13) K/mm3 Lymph # (Auto) 1.62 (1.18-3.74) K/mm3 [place] # (Auto) 2.37 H (0.24-0.36) K/mm3 Eos # (Auto) 0.67 H (0.04-0.36) K/mm3 Baso # (Auto) 0.07 (0.01-0.08) K/mm3 Manual Slide Review Abnormal smear Sodium 139 (136-145) mEq/L Potassium 3.7 (3.5-5.1) mEq/L Chloride 101 (98-107) mEq/L Carbon Dioxide 28 (21-32) mEq/L Anion Gap 14.7 (5-15) BUN 4 L (7-18) mg/dL Creatinine 0.9 (0.55-1.02) mg/dL Est Cr Clr Drug Dosing 54.24 mL/min Estimated GFR (MDRD) > 60 (>60) mL/min BUN/Creatinine Ratio 4.4 L (14-18) Glucose 111 H (74-106) mg/dL Lactic Acid (0.4-2.0) mmol/L Calcium 8.7 (8.5-10.1) mg/dL Total Bilirubin 0.3 (0.2-1.0) mg/dL AST 11 L (15-37) U/L ALT 9 L (14-59) U/L Alkaline Phosphatase 173 H (46-116) U/L C-Reactive Protein 23.8 H* (<1.0) mg/dL Total Protein 6.4 (6.4-8.2) g/dl Albumin 2.0 L (3.4-5.0) g/dl Globulin 4.4 gm/dL Albumin/Globulin Ratio 0.5 L (1-2) Urine Color (Yellow) Urine Appearance (Clear) Urine pH (5.0-8.0) Ur Specific [place] (1.005-1.030) Urine Protein (Negative) Urine Glucose (UA) (Negative) Urine Ketones (Negative) Urine Occult Blood (Negative) Urine Nitrite (Negative) Urine Bilirubin (Negative) Urine Urobilinogen (0.2-1.0) Ur Leukocyte Esterase (Negative) Urine RBC (0-5) /hpf Urine WBC (0-5) /hpf Ur Squamous Epith Cells (0-5) /hpf Urine Bacteria (FEW) /hpf Urine Mucus (FEW) /hpf 11/11/19 11/11/19 Range/Units 14:11 15:05 WBC (3.98-10.04) K/mm3 RBC (3.98-5.22) M/mm3 Hgb (11.2-15.7) gm/dl Hct (34.1-44.9) % MCV (79.4-94.8) fl MCH (25.6-32.2) pg MCHC (32.2-35.5) g/dl RDW Std Deviation (36.4-46.3) fL Plt Count (182-369) K/mm3 MPV (9.4-12.3) fl Neut % (Auto) (34.0-71.1) % Lymph % (Auto) (19.3-51.7) % [place] % (Auto) (4.7-12.5) % Eos % (Auto) (0.7-5.8) Baso % (Auto) (0.1-1.2) % Neut # (Auto) (1.56-6.13) K/mm3 Lymph # (Auto) (1.18-3.74) K/mm3 [place] # (Auto) (0.24-0.36) K/mm3 Eos # (Auto) (0.04-0.36) K/mm3 Baso # (Auto) (0.01-0.08) K/mm3 Manual Slide Review Sodium (136-145) mEq/L Potassium (3.5-5.1) mEq/L Chloride (98-107) mEq/L Carbon Dioxide (21-32) mEq/L Anion Gap (5-15) BUN (7-18) mg/dL Creatinine (0.55-1.02) mg/dL Est Cr Clr Drug Dosing mL/min Estimated GFR (MDRD) (>60) mL/min BUN/Creatinine Ratio (14-18) Glucose (74-106) mg/dL Lactic Acid 1.6 (0.4-2.0) mmol/L Calcium (8.5-10.1) mg/dL Total Bilirubin (0.2-1.0) mg/dL AST (15-37) U/L ALT (14-59) U/L Alkaline Phosphatase (46-116) U/L C-Reactive Protein (<1.0) mg/dL Total Protein (6.4-8.2) g/dl Albumin (3.4-5.0) g/dl Globulin gm/dL Albumin/Globulin Ratio (1-2) Urine Color Yellow (Yellow) Urine Appearance Clear (Clear) Urine pH 8.5 H (5.0-8.0) Ur Specific [place] 1.020 (1.005-1.030) Urine Protein Negative (Negative) Urine Glucose (UA) Negative (Negative) Urine Ketones Negative (Negative) Urine Occult Blood Trace-intact H (Negative) Urine Nitrite Negative (Negative) Urine Bilirubin Negative (Negative) Urine Urobilinogen 1.0 (0.2-1.0) Ur Leukocyte Esterase Negative (Negative) Urine RBC 0-5 (0-5) /hpf Urine WBC 0-5 (0-5) /hpf Ur Squamous Epith Cells 0-5 (0-5) /hpf Urine Bacteria Few (FEW) /hpf Urine Mucus Not seen (FEW) /hpf Result Diagrams: 11/11/19 14:11 11/11/19 14:11 Pb Results Last 24 hrs: Microbiology 11/11/19 13:11 Group A Streptococcus Rapid Screen - Final Throat NEGATIVE STREP A SCREEN REFERENCE RANGE: NEGATIVE 11/11/19 13:22 Influenza Type A Antigen Screen - Final Nasopharyngeal Swab NEGATIVE INFLUENZA A VIRUS AG REFERENCE RANGE: NEGATIVE Influenza Type B Antigen Screen - Final NEGATIVE INFLUENZA B VIRUS AG REFERENCE RANGE: NEGATIVE Sepsis Event Note - Evaluation Sepsis Screening Result: No Definite Risk - Focused Exam Vital Signs: Vital Signs Temp Temp Pulse Pulse Resp BP BP 11/11/19 17:58 97.9 F 79 16 117/44 L 11/11/19 17:50 98.0 F 77 18 109/70 11/11/19 12:25 98.4 F 75 20 127/71 Pulse Ox 11/11/19 17:58 94 L 11/11/19 17:50 95 11/11/19 12:25 96 Date Exam was Performed: 11/11/19 Time Exam was Performed: 20:51 Problem List Initiated/Reviewed/Updated: Yes Orders Last 24hrs: Active Orders 24 hr Category Date Time Status Admission Status [Patient Status] [ADT] Routine ADT 11/11/19 17:31 Active Oxygen Therapy [RC] PRN Care 11/11/19 19:43 Active Peripheral IV Care [RC] Q2HR Care 11/11/19 13:08 Active Up ad Destiny [RC] ASDIRECTED Care 11/11/19 18:44 Active VTE/DVT Education [RC] PER UNIT ROUTINE Care 11/11/19 19:43 Active Vital Signs [RC] Q4H Care 11/11/19 19:43 Active Regular Diet [DIET] Diet 11/12/19 Breakfast Active CXR [Chest 2V] [CR] Stat Exams 11/11/19 13:11 Taken C-REACTIVE PROTEIN [CHEM] AM Lab 11/12/19 05:11 Ordered CBC WITH AUTO DIFF [HEME] AM Lab 11/12/19 05:11 Ordered COMPREHENSIVE METABOLIC PN,CMP [CHEM] AM Lab 11/12/19 05:11 Ordered CULTURE BLOOD [BC] Stat Lab 11/11/19 15:40 Received CULTURE BLOOD [BC] Stat Lab 11/11/19 16:59 Received CULTURE BLOOD [BC] Stat Lab 11/11/19 18:49 Received CULTURE STREP A CONFIRMATION [RM] Stat Lab 11/11/19 13:11 Results MAGNESIUM [CHEM] AM Lab 11/12/19 05:11 Ordered STREP SCRN A RAPID W CULT CONF [RM] Stat Lab 11/11/19 13:11 Results Acetaminophen [Tylenol] Med 11/11/19 19:43 Active 650 mg PO Q4H PRN Atropine/Diphenoxylate [Lomotil 0.025-2.5 MG] Med 11/11/19 19:44 Pending DOSE tab PO QID PRN Baclofen [Lioresal] Med 11/11/19 19:44 Pending 5 mg PO TID PRN Benzocaine/Cetylpyrd/Menthol [Cepacol Sore Throat] Med 11/11/19 19:34 Active 1 lozenge MUCMEM Q2H PRN Enoxaparin [Lovenox] Med 11/12/19 09:00 Active 40 mg SUBCUT DAILY HYDROmorphone [Dilaudid] Med 11/11/19 19:44 Ordered 2 mg PO Q6H PRN Nystatin [Nystatin Oral Syringe] Med 11/11/19 21:00 Active 500,000 unit PO QID Ondansetron [Zofran] Med 11/11/19 19:43 Active 4 mg IV Q4H PRN Sertraline [Zoloft] Med 11/12/19 09:00 Ordered 25 mg PO DAILY Sodium Chloride 0.9% [Saline Flush] Med 11/11/19 13:05 Active 10 ml FLUSH ASDIRECTED PRN cefTRIAXone [Rocephin] 2 gm Med 11/11/19 20:00 Active Sodium Chloride 0.9% [Normal Saline] 100 ml IV Q24H lamoTRIgine Med 11/11/19 19:45 Ordered 25 tab PO ASDIRECTED lamoTRIgine Med 11/11/19 21:00 Ordered 75 mg PO BID traMADol [Ultram] Med 11/11/19 19:44 Ordered 50 mg PO Q6H PRN traZODone HCl [Trazodone HCl] Med 11/11/19 21:00 Ordered 150 mg PO BEDTIME Blood Culture x2 Reflex Set [OM.PC] Stat Oth 11/11/19 18:15 Ordered Peripheral IV Insertion Adult [OM.PC] Stat Oth 11/11/19 13:08 Ordered Resuscitation Status Routine Resus Stat 11/11/19 18:39 Ordered Medication Orders Acetaminophen (Tylenol) 650 mg PO Q4H PRN PRN Reason: Pain (Mild 1-3)/fever Baclofen (Lioresal) 5 mg PO TID PRN PRN Reason: Other Benzocaine/Menthol (Cepacol Sore Throat) 1 lozenge MUCMEM Q2H PRN PRN Reason: Sore Throat Diphenoxylate HCl/Atropine (Lomotil 0.025-2.5 Mg) tab PO QID PRN PRN Reason: Diarrhea Enoxaparin Sodium (Lovenox) 40 mg SUBCUT DAILY [facility] Hydromorphone HCl (Dilaudid) 2 mg PO Q6H PRN PRN Reason: Pain Ceftriaxone Sodium 2 gm/ (Sodium Chloride) 100 mls @ 200 mls/hr IV Q24H IVONNE Last Admin: 11/11/19 20:48 Dose: 200 mls/hr Lamotrigine (Lamotrigine) 75 mg PO BID [facility] Non-Formulary Medication (Lamotrigine) 25 tab PO ASDIRECTED [facility] Non-Formulary Medication (Trazodone Hcl [Trazodone Hcl]) 150 mg PO BEDTIME [facility] Nystatin (Nystatin Oral Syringe) 500,000 unit PO QID [facility] Ondansetron HCl (Zofran) 4 mg IV Q4H PRN PRN Reason: Nausea/Vomiting Sertraline HCl (Zoloft) 25 mg PO DAILY [facility] Sodium Chloride (Saline Flush) 10 ml FLUSH ASDIRECTED PRN PRN Reason: Keep Vein Open Last Admin: 11/11/19 13:21 Dose: 10 ml Tramadol HCl (Ultram) 50 mg PO Q6H PRN PRN Reason: Pain (mild 1-3) Assessment/Plan Comment:: Assessment 54-year-old female with metastatic lung cancer to liver presents to the emergency room with pharyngitis and leukocytosis * Negative rapid strep and flu * Ulcer on the right side of her uvula * Pharyngeal erythema * Possible oral candidiasis * WBC 33,200, platelets 666, C-reactive protein 23.8, lactic acid 1.6 * White count, platelets, and C-reactive protein are likely reactive * This is the fifth hospitalization in the last 6 weeks. Depression, anxiety * Home med: Zoloft Chronic pain including back pain * Home meds: Dilaudid, baclofen, and Ultram Seizure disorder * Home med: Lamictal COPD Plan * Refer for observation * Blood cultures and culture from recent Port-A-Cath * Rocephin * Nystatin swish and swallow 4 times daily * Cepacol for throat pain * Continue home meds except NSAIDs * Discussed with her oncologist Dr. Sandoval in a.m. * VTE prophylaxis with Lovenox * CODE STATUS: Full code - Mortality Measure Prognosis:: Poor
[2019-11-11] MEDS: Nystatin Susp 100,000 Unit/ML 5 ML Oral Syringe PO SCH (21:14)
[2019-11-11] MEDS: Benzocaine/Cetylpyridinium/Menthol Lozenge MUCMEM PRN (21:14)
[2019-11-11] MEDS: traMADol 50 MG Tab**OWN MED PO PRN (22:34)
[2019-11-11] MEDS: TRAZODONE HCL 150 MG PO SCH (22:36)
--- NOTE | 2019-11-12 07:41 | CR ---
Chest: 2 views of the chest were obtained. Comparison: Prior chest x-ray of 11/04/19. Continuing parenchymal change is noted within the right lung base. Finding remains fairly stable from most recent exam. Slight parenchymal nodule within the left base is noted. Lung markings mildly increased within the left retrocardiac region questionably increased from prior exam representing bronchitis. Lungs are hyperinflated compatible with emphysematous change. Right-sided infusion catheter is seen. Impression: 1. Emphysematous change. 2. Parenchymal density presumably which is fairly stable from most recent exam. This presumably represents site of previous neoplasm. 3. Questionable increased lung markings within the left retrocardiac base and difficult to exclude mild superimposed bronchitis. 3. Nodular density within the left lung base which remained stable. Diagnostic code #3 This report was dictated in [facility]
[2019-11-12] MEDS: Enoxaparin 40 MG/0.4 ML Syringe SUBCUT SCH (08:19)
[2019-11-12] MEDS: Nystatin Susp 100,000 Unit/ML 5 ML Oral Syringe PO SCH ×4 (08:20→20:15)
[2019-11-12] MEDS: traMADol 50 MG Tab**OWN MED PO PRN (08:44)
[2019-11-12] MEDS ORDERED: Sertraline 25 MG Tab PO SCH (09:00)
[2019-11-12] MEDS: Acetaminophen 325 MG Tab PO PRN ×2 (11:30→20:14)
--- NOTE | 2019-11-12 16:23 | PCM.PN ---
- General Info Date of Service: 11/12/19 Admission Dx/Problem (Free Text): Admission Diagnosis/Problem Admission Diagnosis/Problem Leukocytosis Subjective Update: Patient is doing well. She states she is feeling better than yesterday. I spoke with her oncologist Dr. Blackwell who stated that she is likely fighting some kind of infection and to continue on Rocephin until discharge and then discharged on Levaquin. Functional Status: Reports: Pain Controlled - Review of Systems General: Reports: No Symptoms HEENT: Reports: No Symptoms Pulmonary: Reports: No Symptoms Cardiovascular: Reports: No Symptoms Gastrointestinal: Reports: No Symptoms Musculoskeletal: Reports: No Symptoms - Patient Data Vitals - Most Recent: Last Vital Signs Temp 99.1 F 11/12/19 11:30 Pulse 80 11/12/19 08:37 Resp 20 11/12/19 08:37 BP 104/51 L 11/12/19 08:37 Pulse Ox 94 L 11/12/19 08:37 Weight - Most Recent: 105 lb 9.6 oz I&O - Last 24 Hours: Intake & Output 11/12/19 11/12/19 11/12/19 06:59 14:59 22:59 Intake Total 300 480 900 Output Total 800 800 Balance -500 480 100 Lab Results Last 24 Hours: Laboratory Results - last 24 hr 11/12/19 11/12/19 Range/Units 05:23 05:23 WBC 24.74 H (3.98-10.04) K/mm3 RBC 3.20 L (3.98-5.22) M/mm3 Hgb 8.3 L (11.2-15.7) gm/dl Hct 27.3 L (34.1-44.9) % MCV 85.3 (79.4-94.8) fl MCH 25.9 (25.6-32.2) pg MCHC 30.4 L (32.2-35.5) g/dl RDW Std Deviation 51.9 H (36.4-46.3) fL Plt Count 624 H (182-369) K/mm3 MPV 8.0 L (9.4-12.3) fl Neut % (Auto) 80.8 H (34.0-71.1) % Lymph % (Auto) 7.8 L (19.3-51.7) % [place] % (Auto) 8.2 (4.7-12.5) % Eos % (Auto) 2.3 (0.7-5.8) Baso % (Auto) 0.2 (0.1-1.2) % Neut # (Auto) 19.98 H (1.56-6.13) K/mm3 Lymph # (Auto) 1.92 (1.18-3.74) K/mm3 [place] # (Auto) 2.02 H (0.24-0.36) K/mm3 Eos # (Auto) 0.58 H (0.04-0.36) K/mm3 Baso # (Auto) 0.06 (0.01-0.08) K/mm3 Manual Slide Review Abnormal smear Sodium 139 (136-145) mEq/L Potassium 3.8 (3.5-5.1) mEq/L Chloride 102 (98-107) mEq/L Carbon Dioxide 28 (21-32) mEq/L Anion Gap 12.8 (5-15) BUN 6 L (7-18) mg/dL Creatinine 1.0 (0.55-1.02) mg/dL Est Cr Clr Drug Dosing 48.63 mL/min Estimated GFR (MDRD) 58 (>60) mL/min BUN/Creatinine Ratio 6.0 L (14-18) Glucose 92 (74-106) mg/dL Calcium 8.5 (8.5-10.1) mg/dL Magnesium 1.9 (1.8-2.4) mg/dl Total Bilirubin 0.2 (0.2-1.0) mg/dL AST 10 L (15-37) U/L ALT 8 L (14-59) U/L Alkaline Phosphatase 155 H (46-116) U/L C-Reactive Protein 18.2 H* (<1.0) mg/dL Total Protein 6.1 L (6.4-8.2) g/dl Albumin 1.9 L (3.4-5.0) g/dl Globulin 4.2 gm/dL Albumin/Globulin Ratio 0.5 L (1-2) Pb Results Last 24 Hours: Microbiology 11/11/19 15:40 Aerobic Blood Culture - Preliminary Blood NO GROWTH AFTER 1 DAY Anaerobic Blood Culture - Preliminary NO GROWTH AFTER 1 DAY 11/11/19 13:11 Quick Strep Confirmation Culture - Preliminary Throat Group A Streptococcus Rapid Screen - Final NEGATIVE STREP A SCREEN REFERENCE RANGE: NEGATIVE 11/11/19 13:22 Influenza Type A Antigen Screen - Final Nasopharyngeal Swab NEGATIVE INFLUENZA A VIRUS AG REFERENCE RANGE: NEGATIVE Influenza Type B Antigen Screen - Final NEGATIVE INFLUENZA B VIRUS AG REFERENCE RANGE: NEGATIVE Med Orders - Current: Current Medications Acetaminophen (Tylenol) 650 mg PO Q4H PRN PRN Reason: Pain (Mild 1-3)/fever Last Admin: 11/12/19 11:30 Dose: 650 mg Baclofen (Lioresal) 5 mg PO TID PRN PRN Reason: Other Benzocaine/Menthol (Cepacol Sore Throat) 1 lozenge MUCMEM Q2H PRN PRN Reason: Sore Throat Last Admin: 11/11/19 21:14 Dose: 1 lozenge Diphenoxylate HCl/Atropine (Lomotil 0.025-2.5 Mg) 1 tab PO QID PRN PRN Reason: Diarrhea Enoxaparin Sodium (Lovenox) 40 mg SUBCUT DAILY [facility] Last Admin: 11/12/19 08:19 Dose: 40 mg Hydromorphone HCl (Dilaudid) 2 mg PO Q6H PRN PRN Reason: Pain Ceftriaxone Sodium 2 gm/ (Sodium Chloride) 100 mls @ 200 mls/hr IV Q24H [facility] Last Admin: 11/11/19 20:48 Dose: 200 mls/hr Lamotrigine (Lamotrigine) 75 mg PO BID [facility] Stop: 11/14/19 21:01 Last Admin: 11/12/19 08:22 Dose: 75 mg Lamotrigine (Lamotrigine) 75 mg PO DAILY [facility] Stop: 11/21/19 09:01 Lamotrigine (Lamotrigine) 100 mg PO BEDTIME [facility] Stop: 11/21/19 21:01 Lamotrigine (Lamotrigine) 100 mg PO BID [facility] Stop: 11/28/19 21:01 Lamotrigine 25 Tab - (Pts Own Med) 0 tab PO ASDIRECTED [facility] Trazodone Hcl 150 Mg (TabOwn Med) 150 mg PO BEDTIME [facility] Last Admin: 11/11/19 22:36 Dose: 150 mg Nystatin (Nystatin Oral Syringe) 500,000 unit PO QID [facility] Last Admin: 11/12/19 12:38 Dose: 500,000 unit Ondansetron HCl (Zofran) 4 mg IV Q4H PRN PRN Reason: Nausea/Vomiting Last Admin: 11/11/19 20:53 Dose: 4 mg Sertraline HCl (Zoloft) 25 mg PO DAILY [facility] Last Admin: 11/12/19 08:21 Dose: 25 mg Sodium Chloride (Saline Flush) 10 ml FLUSH ASDIRECTED PRN PRN Reason: Keep Vein Open Last Admin: 11/11/19 13:21 Dose: 10 ml Tramadol HCl (Ultram) 50 mg PO Q6H PRN PRN Reason: Pain (mild 1-3) Last Admin: 11/12/19 08:44 Dose: 50 mg Discontinued Medications Diphenoxylate HCl/Atropine (Lomotil 0.025-2.5 Mg) tab PO QID PRN PRN Reason: Diarrhea Hydromorphone HCl (Dilaudid) 0.5 mg IVPUSH ONETIME ONE Stop: 11/11/19 14:40 Last Admin: 11/11/19 15:43 Dose: 0.25 mg - Exam Quality Assessment: No: Supplemental Oxygen General: Alert, Oriented HEENT: Pupils Equal, Mucous Membr. Moist/[place] Neck: Supple Lungs: Clear to Auscultation, Normal Respiratory Effort Cardiovascular: Regular Rate, Regular Rhythm GI/Abdominal Exam: Normal Bowel Sounds, Soft, Non-Tender, No Organomegaly, No Distention Extremities: Normal Inspection, Normal Range of Motion, No Pedal Edema Sepsis Event Note - Evaluation Sepsis Screening Result: No Definite Risk - Focused Exam Vital Signs: Vital Signs Temp Pulse Resp BP Pulse Ox 11/12/19 11:30 99.1 F 11/12/19 08:37 98.1 F 80 20 104/51 L 94 L 11/12/19 05:15 98.2 F 72 12 101/75 93 L Date Exam was Performed: 11/13/19 Time Exam was Performed: 09:55 - Problem List Review Problem List Initiated/Reviewed/Updated: Yes - My Orders Last 24 Hours: My Active Orders 11/11/19 18:15 Blood Culture x2 Reflex Set [OM.PC] Stat 11/11/19 18:39 Resuscitation Status Routine 11/11/19 18:44 Up ad Destiny [RC] BID 11/11/19 18:49 CULTURE BLOOD [BC] Stat 11/11/19 19:34 Benzocaine/Cetylpyrd/Menthol [Cepacol Sore Throat] 1 lozenge MUCMEM Q2H PRN 11/11/19 19:43 Oxygen Therapy [RC] PRN VTE/DVT Education [RC] PER UNIT ROUTINE Vital Signs [RC] Q4HR Acetaminophen [Tylenol] 650 mg PO Q4H PRN Ondansetron [Zofran] 4 mg IV Q4H PRN 11/11/19 19:44 Baclofen [Lioresal] 5 mg PO TID PRN HYDROmorphone [Dilaudid] 2 mg PO Q6H PRN traMADol [Ultram] 50 mg PO Q6H PRN 11/11/19 19:45 lamoTRIgine 0 tab PO ASDIRECTED 11/11/19 20:00 cefTRIAXone [Rocephin] 2 gm Sodium Chloride 0.9% [Normal Saline] 100 ml IV Q24H 11/11/19 21:00 Nystatin [Nystatin Oral Syringe] 500,000 unit PO QID lamoTRIgine 75 mg PO BID 11/11/19 21:31 Atropine/Diphenoxylate [Lomotil 0.025-2.5 MG] 1 tab PO QID PRN 11/11/19 22:30 traZODone HCl [Trazodone HCl] 150 mg PO BEDTIME 11/12/19 09:00 Enoxaparin [Lovenox] 40 mg SUBCUT DAILY Sertraline [Zoloft] 25 mg PO DAILY 11/12/19 12:34 Admission Status [Patient Status] [ADT] Routine 11/12/19 Breakfast Regular Diet [DIET] 11/15/19 09:00 lamoTRIgine 75 mg PO DAILY 11/15/19 21:00 lamoTRIgine 100 mg PO BEDTIME 11/22/19 09:00 lamoTRIgine 100 mg PO BID - Plan Plan:: Assessment 54-year-old female with metastatic lung cancer to liver presents to the emergency room with pharyngitis and leukocytosis * Negative rapid strep and flu * Ulcer on the right side of her uvula - improved * Pharyngeal erythema - improved * Possible oral candidiasis - on nystatin * WBC 33.2-->24.74, C-reactive protein 23.8-->18.2, * White count, platelets, and C-reactive protein are likely reactive * This is the fifth hospitalization in the last 6 weeks. * I spoke with her oncologist Dr. Blackwell who stated that she is likely fighting some kind of infection and to continue on Rocephin until discharge and then discharged on Levaquin. Depression, anxiety * Home med: Zoloft Chronic pain including back pain * Home meds: Dilaudid, baclofen, and Ultram Seizure disorder * Home med: Lamictal COPD Plan * Admit as inpatient secondary to patient having inability to tolerate oral treatment with antibiotics. Because of her severely immunocompromised state we need to assure that she will get her antibiotics. Therefore we will keep her for another 24 to 48 hours to ensure antibiotic therapy. * Blood cultures and culture from recent Port-A-Cath * Continue Rocephin * Nystatin swish and swallow 4 times daily * Cepacol for throat pain * Continue home meds she can tolerate except NSAIDs * VTE prophylaxis with Lovenox * CODE STATUS: Full code
[2019-11-12] MEDS: Benzocaine/Cetylpyridinium/Menthol Lozenge MUCMEM PRN ×2 (16:55→20:14)
[2019-11-12] MEDS: Morphine 15 MG Tab.ER PO SCH (16:56)
[2019-11-12] MEDS: Ondansetron 4 MG/2 ML SDV IV PRN (18:01)
[2019-11-12] MEDS: cefTRIAXone 2 GM in Sodium Chloride 0.9% 100 ML IV SCH (20:15)
[2019-11-12] MEDS: TRAZODONE HCL 150 MG PO SCH (21:52)
[2019-11-13] MEDS: Benzocaine/Cetylpyridinium/Menthol Lozenge MUCMEM PRN ×2 (02:33→04:46)
[2019-11-13] MEDS: Morphine 15 MG Tab.ER PO SCH ×2 (04:46→16:42)
[2019-11-13] MEDS ORDERED: HYDROmorphone 2 MG Tab PO PRN (07:30)
[2019-11-13] MEDS ORDERED: Atropine/Diphenoxylate 0.025-2.5 MG Tab PO PRN (07:45)
[2019-11-13] MEDS: Sertraline 25 MG Tab PO SCH (08:10)
[2019-11-13] MEDS: Potassium Chloride 20 MEQ Tab.ER PO SCH (08:11)
[2019-11-13] MEDS: Nystatin Susp 100,000 Unit/ML 5 ML Oral Syringe PO SCH ×4 (08:14→20:39)
[2019-11-13] MEDS: Enoxaparin 40 MG/0.4 ML Syringe SUBCUT SCH (08:14)
[2019-11-13] MEDS: traMADol 50 MG Tab PO PRN ×2 (08:18→20:33)
[2019-11-13] MEDS: Baclofen 10 MG Tab PO PRN ×2 (08:19→20:38)
--- NOTE | 2019-11-13 08:42 | PCM.PN ---
- General Info Date of Service: 11/13/19 Admission Dx/Problem (Free Text): Admission Diagnosis/Problem Admission Diagnosis/Problem Leukocytosis Subjective Update: Reports she continues to feel good. Fever was overnight and she denies any symptoms so far today. Feels like her throat symptoms are improving. Functional Status: Reports: Pain Controlled, Tolerating Diet, Ambulating, Urinating. Denies: New Symptoms - Review of Systems General: Denies: Fever (lowgrade overnight. Nothing today), Weakness, Fatigue, Malaise HEENT: Reports: No Symptoms. Denies: Headaches, Sore Throat Pulmonary: Reports: No Symptoms. Denies: Shortness of Breath, Pleuritic Chest Pain, Cough, Sputum, Wheezing Cardiovascular: Reports: No Symptoms. Denies: Chest Pain, Palpitations, Dyspnea on Exertion, Edema Gastrointestinal: Reports: No Symptoms. Denies: Abdominal Pain, Constipation, Diarrhea, Nausea, Vomiting Genitourinary: Reports: No Symptoms. Denies: Pain Musculoskeletal: Reports: No Symptoms Skin: Reports: No Symptoms. Denies: Cyanosis Neurological: Reports: No Symptoms. Denies: Confusion, Pre-Existing Deficit, Difficulty Walking, Gait Disturbance Psychiatric: Reports: No Symptoms - Patient Data Vitals - Most Recent: Last Vital Signs Temp 98.1 F 11/13/19 07:40 Pulse 83 11/13/19 07:40 Resp 16 11/13/19 07:40 BP 108/52 L 11/13/19 07:40 Pulse Ox 94 L 11/13/19 07:40 Weight - Most Recent: 106 lb 3.2 oz I&O - Last 24 Hours: Intake & Output 11/12/19 11/13/19 11/13/19 22:59 06:59 14:59 Intake Total 1000 400 Output Total 800 1700 Balance 200 -1300 Lab Results Last 24 Hours: Laboratory Results - last 24 hr 11/13/19 Range/Units 04:45 WBC 29.17 H (3.98-10.04) K/mm3 RBC 3.18 L (3.98-5.22) M/mm3 Hgb 8.3 L (11.2-15.7) gm/dl Hct 27.3 L (34.1-44.9) % MCV 85.8 (79.4-94.8) fl MCH 26.1 (25.6-32.2) pg MCHC 30.4 L (32.2-35.5) g/dl RDW Std Deviation 51.6 H (36.4-46.3) fL Plt Count 549 H D (182-369) K/mm3 MPV 8.6 L (9.4-12.3) fl Neut % (Auto) 84.1 H (34.0-71.1) % Lymph % (Auto) 5.0 L (19.3-51.7) % [place] % (Auto) 7.5 (4.7-12.5) % Eos % (Auto) 2.5 (0.7-5.8) Baso % (Auto) 0.2 (0.1-1.2) % Neut # (Auto) 24.54 H (1.56-6.13) K/mm3 Lymph # (Auto) 1.46 (1.18-3.74) K/mm3 [place] # (Auto) 2.20 H (0.24-0.36) K/mm3 Eos # (Auto) 0.73 H (0.04-0.36) K/mm3 Baso # (Auto) 0.05 (0.01-0.08) K/mm3 Manual Slide Review Abnormal smear Pb Results Last 24 Hours: Microbiology 11/11/19 13:11 Quick Strep Confirmation Culture - Final Throat NEGATIVE FOR BETA STREP REFERENCE RANGE: NEGATIVE Group A Streptococcus Rapid Screen - Final NEGATIVE STREP A SCREEN REFERENCE RANGE: NEGATIVE 11/11/19 18:49 Aerobic Blood Culture - Preliminary Blood - Port-A-Cath NO GROWTH AFTER 1 DAY Anaerobic Blood Culture - Preliminary NO GROWTH AFTER 1 DAY 11/11/19 16:59 Aerobic Blood Culture - Preliminary Blood - Port-A-Cath NO GROWTH AFTER 1 DAY Anaerobic Blood Culture - Preliminary NO GROWTH AFTER 1 DAY 11/11/19 15:40 Aerobic Blood Culture - Preliminary Blood NO GROWTH AFTER 1 DAY Anaerobic Blood Culture - Preliminary NO GROWTH AFTER 1 DAY Med Orders - Current: Current Medications Acetaminophen (Tylenol) 650 mg PO Q4H PRN PRN Reason: Pain (Mild 1-3)/fever Last Admin: 11/12/19 20:14 Dose: 650 mg Baclofen (Lioresal) 5 mg PO TID PRN PRN Reason: Other Last Admin: 11/13/19 08:19 Dose: 5 mg Benzocaine/Menthol (Cepacol Sore Throat) 1 lozenge MUCMEM Q2H PRN PRN Reason: Sore Throat Last Admin: 11/13/19 04:46 Dose: 1 lozenge Diphenoxylate HCl/Atropine (Lomotil 0.025-2.5 Mg) 1 tab PO QID PRN PRN Reason: Diarrhea Enoxaparin Sodium (Lovenox) 40 mg SUBCUT DAILY [facility] Last Admin: 11/13/19 08:14 Dose: 40 mg Hydromorphone HCl (Dilaudid) 2 mg PO Q6H PRN PRN Reason: Pain Ceftriaxone Sodium 2 gm/ (Sodium Chloride) 100 mls @ 200 mls/hr IV Q24H [facility] Last Admin: 11/12/19 20:15 Dose: 200 mls/hr Lamotrigine (Lamotrigine) 75 mg PO DAILY [facility] Stop: 11/21/19 09:01 Lamotrigine (Lamotrigine) 100 mg PO BEDTIME [facility] Stop: 11/21/19 21:01 Lamotrigine (Lamotrigine) 100 mg PO BID [facility] Stop: 11/28/19 21:01 Lamotrigine (Lamotrigine) 75 mg PO BID [facility] Stop: 11/14/19 21:01 Last Admin: 11/13/19 08:09 Dose: 75 mg Morphine Sulfate (Ms Contin) 15 mg PO Q12H [facility] Last Admin: 11/13/19 04:46 Dose: 15 mg Lamotrigine 25 Tab - (Pts Own Med) 0 tab PO ASDIRECTED [facility] Nystatin (Nystatin Oral Syringe) 500,000 unit PO QID [facility] Last Admin: 11/13/19 08:14 Dose: 500,000 unit Ondansetron HCl (Zofran) 4 mg IV Q4H PRN PRN Reason: Nausea/Vomiting Last Admin: 11/12/19 18:01 Dose: 4 mg Potassium Chloride (Klor-Con M20) 20 meq PO DAILY [facility] Last Admin: 11/13/19 08:11 Dose: 20 meq Sertraline HCl (Zoloft) 25 mg PO DAILY [facility] Last Admin: 11/13/19 08:10 Dose: 25 mg Sodium Chloride (Saline Flush) 10 ml FLUSH ASDIRECTED PRN PRN Reason: Keep Vein Open Last Admin: 11/11/19 13:21 Dose: 10 ml Tramadol HCl (Ultram) 50 mg PO Q6H PRN PRN Reason: Pain (mild 1-3) Last Admin: 11/13/19 08:18 Dose: 50 mg Trazodone HCl (Trazodone) 150 mg PO BEDTIME [facility] Discontinued Medications Baclofen (Lioresal) 5 mg PO TID PRN PRN Reason: Other Diphenoxylate HCl/Atropine (Lomotil 0.025-2.5 Mg) tab PO QID PRN PRN Reason: Diarrhea Diphenoxylate HCl/Atropine (Lomotil 0.025-2.5 Mg) 1 tab PO QID PRN PRN Reason: Diarrhea Hydromorphone HCl (Dilaudid) 0.5 mg IVPUSH ONETIME ONE Stop: 11/11/19 14:40 Last Admin: 11/11/19 15:43 Dose: 0.25 mg Hydromorphone HCl (Dilaudid) 2 mg PO Q6H PRN PRN Reason: Pain Lamotrigine (Lamotrigine) 75 mg PO BID [facility] Stop: 11/14/19 21:01 Last Admin: 11/12/19 20:14 Dose: 75 mg Trazodone Hcl 150 Mg (TabOwn Med) 150 mg PO BEDTIME [facility] Last Admin: 11/12/19 21:52 Dose: 150 mg Sertraline HCl (Zoloft) 25 mg PO DAILY [facility] Last Admin: 11/12/19 08:21 Dose: 25 mg Tramadol HCl (Ultram) 50 mg PO Q6H PRN PRN Reason: Pain (mild 1-3) Last Admin: 11/12/19 08:44 Dose: 50 mg - Exam Quality Assessment: DVT Prophylaxis. No: Supplemental Oxygen General: Alert, Oriented, Cooperative, No Acute Distress HEENT: Pupils Equal, Pupils Reactive, Mucous Membr. Moist/[place] Neck: Supple, Trachea Midline Lungs: Clear to Auscultation, Normal Respiratory Effort, Other (Port in chest ) Cardiovascular: Regular Rate, Regular Rhythm GI/Abdominal Exam: Normal Bowel Sounds, Soft, Non-Tender, No Distention (Female) Exam: Deferred Back Exam: Normal Inspection, Full Range of Motion Extremities: Normal Inspection, Normal Range of Motion, Non-Tender, No Pedal Edema, Normal Capillary Refill Skin: Warm, Dry, Intact Neurological: No New Focal Deficit Psy/Mental Status: Alert, Normal Affect, Normal Mood Sepsis Event Note - Evaluation Sepsis Screening Result: No Definite Risk - Focused Exam Vital Signs: Vital Signs Temp Temp Pulse Pulse Resp BP BP 11/13/19 07:40 98.1 F 83 16 108/52 L 11/13/19 02:16 97.7 F 66 16 90/60 11/13/19 01:53 97.7 F 67 16 11/12/19 23:43 14 11/12/19 23:42 97.9 F 68 85/51 L 11/12/19 21:17 100.6 F Pulse Ox 11/13/19 07:40 94 L 11/13/19 02:16 96 11/13/19 01:53 96 11/12/19 23:43 11/12/19 23:42 97 11/12/19 21:17 Date Exam was Performed: 11/13/19 Time Exam was Performed: 12:52 - Problem List & Annotations (1) Leukocytosis SNOMED Code(s): 530478939, 341535869 Code(s): D72.829 - ELEVATED WHITE BLOOD CELL COUNT, UNSPECIFIED Status: Acute Priority: High Current Visit: Yes Qualifiers: Leukocytosis type: unspecified Qualified Code(s): D72.829 - Elevated white blood cell count, unspecified (2) Pharyngitis SNOMED Code(s): 336700309 Code(s): J02.9 - ACUTE PHARYNGITIS, UNSPECIFIED Status: Acute Priority: High Current Visit: Yes Qualifiers: Pharyngitis/tonsillitis etiology: unspecified etiology Qualified Code(s): J02.9 - Acute pharyngitis, unspecified (3) Acute febrile illness SNOMED Code(s): 476422967 Code(s): R50.9 - FEVER, UNSPECIFIED Status: Acute Priority: High Current Visit: Yes (4) Immunocompromised state SNOMED Code(s): 946080961 Code(s): D89.9 - DISORDER INVOLVING THE IMMUNE MECHANISM, UNSPECIFIED Status: Chronic Priority: Medium Current Visit: No (5) Anxiety SNOMED Code(s): 55240252 Code(s): F41.9 - ANXIETY DISORDER, UNSPECIFIED Status: Chronic Priority: Low Current Visit: No (6) COPD (chronic obstructive pulmonary disease) SNOMED Code(s): 16084807 Code(s): J44.9 - CHRONIC OBSTRUCTIVE PULMONARY DISEASE, UNSPECIFIED Status : Chronic Priority: Medium Current Visit: No Qualifiers: COPD type: unspecified COPD Qualified Code(s): J44.9 - Chronic obstructive pulmonary disease, unspecified (7) Depression SNOMED Code(s): 80806306 Code(s): F32.9 - MAJOR DEPRESSIVE DISORDER, SINGLE EPISODE, UNSPECIFIED Status: Chronic Priority: Low Current Visit: No Qualifiers: Depression Type: other depression Qualified Code(s): F32.89 - Other specified depressive episodes (8) History of hepatitis C SNOMED Code(s): 21466993589582, 06655219559194 Code(s): Z86.19 - PERSONAL HISTORY OF OTHER INFECTIOUS AND PARASITIC DISEASES Status: Chronic Priority: Low Current Visit: No (9) History of laparoscopic cholecystectomy SNOMED Code(s): 890441461 Code(s): Z90.49 - ACQUIRED ABSENCE OF OTHER SPECIFIED PARTS OF DIGESTIVE TRACT Status: Chronic Priority: Low Current Visit: No (10) History of migraine SNOMED Code(s): 887593870 Code(s): Z86.69 - PERSONAL HISTORY OF DIS OF THE NERVOUS SYS AND SENSE ORGANS Status: Chronic Priority: Low Current Visit: No (11) History of seizures SNOMED Code(s): 239722055 Code(s): Z87.898 - PERSONAL HISTORY OF OTHER SPECIFIED CONDITIONS Status: Chronic Priority: Low Current Visit: No (12) History of suicide attempt SNOMED Code(s): 393117451, 785946003 Code(s): Z91.5 - PERSONAL HISTORY OF SELF-HARM Status: Chronic Priority: Low Current Visit: No (13) Liver metastases Status: Chronic Priority: Medium Current Visit: No (14) Osteoarthritis SNOMED Code(s): 143022266 Code(s): M19.90 - UNSPECIFIED OSTEOARTHRITIS, UNSPECIFIED SITE Status: Chronic Priority: Medium Current Visit: No Qualifiers: Osteoarthritis location: unspecified site Osteoarthritis type: unspecified Qualified Code(s): M19.90 - Unspecified osteoarthritis, unspecified site (15) Primary cancer of right lung metastatic to other site SNOMED Code(s): 57965312, 325100613 Code(s): C34.91 - MALIGNANT NEOPLASM OF UNSP PART OF RIGHT BRONCHUS OR LUNG Status: Chronic Priority: Medium Current Visit: No - Problem List Review Problem List Initiated/Reviewed/Updated: Yes - Plan Plan:: Assessment 54-year-old female with metastatic lung cancer to liver presents to the emergency room with pharyngitis and leukocytosis * Negative rapid strep and flu * Ulcer on the right side of her uvula - improved * Pharyngeal erythema - improved * Possible oral candidiasis - on nystatin * WBC 33.2-->24.74-->29.17, C-reactive protein 23.8-->18.2, * White count, platelets, and C-reactive protein are likely reactive * This is the fifth hospitalization in the last 6 weeks. * Dr. Pacheco spoke with her oncologist Dr. Blackwell who stated that she is likely fighting some kind of infection and to continue on Rocephin until discharge and then discharged on Levaquin. Due to fever will change to Levaquin today. * Blood cultures and culture from recent Port-A-Cath negative Depression, anxiety * Home med: Zoloft Chronic pain including back pain * Home meds: Dilaudid, baclofen, and Ultram Seizure disorder * Home med: Lamictal COPD * No symptoms currently * Continue to monitor Plan * Refer for observation-->upgraded to inpatient * Switch to IV Levaquin * Nystatin swish and swallow 4 times daily * Cepacol for throat pain * Continue home meds except NSAIDs * VTE prophylaxis with Lovenox * CODE STATUS: Full code
[2019-11-13] MEDS ORDERED: Magnesium Hydroxide 400 MG/5 ML Susp 30 ML Cup PO ONE (10:00)
[2019-11-13] MEDS ORDERED: Levofloxacin/Dextrose 5%-Water 750 MG in Premix Bag 1 BAG IV SCH (12:30)
[2019-11-13] MEDS: Aluminum Hydroxide/Magnesium Hydroxide/Simethicone Susp 30 ML Cup PO PRN (17:09)
[2019-11-13] MEDS: Ondansetron 4 MG/2 ML SDV IV PRN (18:09)
[2019-11-13] MEDS: Acetaminophen 325 MG Tab PO PRN (23:35)
[2019-11-14] MEDS: Morphine 15 MG Tab.ER PO SCH ×2 (04:08→17:19)
[2019-11-14] MEDS: Sertraline 25 MG Tab PO SCH (09:00)
[2019-11-14] MEDS: Potassium Chloride 20 MEQ Tab.ER PO SCH (09:00)
[2019-11-14] MEDS: Enoxaparin 40 MG/0.4 ML Syringe SUBCUT SCH (09:01)
[2019-11-14] MEDS: Nystatin Susp 100,000 Unit/ML 5 ML Oral Syringe PO SCH ×4 (09:01→20:49)
--- NOTE | 2019-11-14 09:03 | PCM.PN ---
- General Info Date of Service: 11/14/19 Admission Dx/Problem (Free Text): Admission Diagnosis/Problem Admission Diagnosis/Problem Leukocytosis Subjective Update: In to see Florence. She is lying in bed sleeping. No new complaints and states she is doing pretty well. Functional Status: Reports: Pain Controlled, Tolerating Diet, Ambulating, Urinating. Denies: New Symptoms - Review of Systems General: Reports: Chills (States she has been cold in her room). Denies: Fever , Weakness, Fatigue, Malaise HEENT: Reports: Sore Throat (improving ). Denies: Headaches Pulmonary: Reports: No Symptoms. Denies: Shortness of Breath, Cough, Sputum, Wheezing Cardiovascular: Reports: No Symptoms. Denies: Chest Pain, Palpitations, Edema Gastrointestinal: Reports: No Symptoms. Denies: Abdominal Pain, Constipation, Diarrhea, Nausea, Vomiting Genitourinary: Reports: No Symptoms. Denies: Pain Musculoskeletal: Reports: No Symptoms Skin: Reports: No Symptoms. Denies: Cyanosis Neurological: Reports: No Symptoms. Denies: Confusion, Dizziness, Difficulty Walking, Weakness Psychiatric: Reports: No Symptoms - Patient Data Vitals - Most Recent: Last Vital Signs Temp 97.5 F 11/14/19 04:07 Pulse 72 11/14/19 04:07 Resp 20 11/14/19 04:07 BP 100/69 11/14/19 04:07 Pulse Ox 93 L 11/14/19 06:56 Weight - Most Recent: 106 lb 6.4 oz I&O - Last 24 Hours: Intake & Output 11/13/19 11/14/19 11/14/19 22:59 06:59 14:59 Intake Total 970 1400 Output Total 2150 1400 Balance -1180 0 Lab Results Last 24 Hours: Laboratory Results - last 24 hr 11/14/19 11/14/19 Range/Units 06:17 06:17 WBC 25.54 H (3.98-10.04) K/mm3 RBC 3.10 L (3.98-5.22) M/mm3 Hgb 8.0 L (11.2-15.7) gm/dl Hct 26.8 L (34.1-44.9) % MCV 86.5 (79.4-94.8) fl MCH 25.8 (25.6-32.2) pg MCHC 29.9 L (32.2-35.5) g/dl RDW Std Deviation 51.9 H (36.4-46.3) fL Plt Count 462 H D (182-369) K/mm3 MPV 8.2 L (9.4-12.3) fl Neut % (Auto) 82.3 H (34.0-71.1) % Lymph % (Auto) 4.5 L (19.3-51.7) % Caroline % (Auto) 8.8 (4.7-12.5) % Eos % (Auto) 3.5 (0.7-5.8) Baso % (Auto) 0.2 (0.1-1.2) % Neut # (Auto) 20.98 H (1.56-6.13) K/mm3 Lymph # (Auto) 1.16 L (1.18-3.74) K/mm3 Caroline # (Auto) 2.26 H (0.24-0.36) K/mm3 Eos # (Auto) 0.90 H (0.04-0.36) K/mm3 Baso # (Auto) 0.05 (0.01-0.08) K/mm3 Manual Slide Review Abnormal smear C-Reactive Protein 19.6 H* (<1.0) mg/dL Pb Results Last 24 Hours: Microbiology 11/11/19 18:49 Aerobic Blood Culture - Preliminary Blood - Port-A-Cath NO GROWTH AFTER 2 DAYS Anaerobic Blood Culture - Preliminary NO GROWTH AFTER 2 DAYS 11/11/19 16:59 Aerobic Blood Culture - Preliminary Blood - Port-A-Cath NO GROWTH AFTER 2 DAYS Anaerobic Blood Culture - Preliminary NO GROWTH AFTER 2 DAYS 11/11/19 15:40 Aerobic Blood Culture - Preliminary Blood NO GROWTH AFTER 2 DAYS Anaerobic Blood Culture - Preliminary NO GROWTH AFTER 2 DAYS 11/11/19 13:11 Quick Strep Confirmation Culture - Final Throat NEGATIVE FOR BETA STREP REFERENCE RANGE: NEGATIVE Group A Streptococcus Rapid Screen - Final NEGATIVE STREP A SCREEN REFERENCE RANGE: NEGATIVE Med Orders - Current: Current Medications Acetaminophen (Tylenol) 650 mg PO Q4H PRN PRN Reason: Pain (Mild 1-3)/fever Last Admin: 11/13/19 23:35 Dose: 650 mg Al Hydroxide/Mg Hydroxide (Mag-Al Plus) 30 ml PO Q4H PRN PRN Reason: Heartburn Last Admin: 11/13/19 17:09 Dose: 30 ml Baclofen (Lioresal) 5 mg PO TID PRN PRN Reason: Other Last Admin: 11/13/19 20:38 Dose: 5 mg Benzocaine/Menthol (Cepacol Sore Throat) 1 lozenge MUCMEM Q2H PRN PRN Reason: Sore Throat Last Admin: 11/13/19 04:46 Dose: 1 lozenge Diphenoxylate HCl/Atropine (Lomotil 0.025-2.5 Mg) 1 tab PO QID PRN PRN Reason: Diarrhea Enoxaparin Sodium (Lovenox) 40 mg SUBCUT DAILY [facility] Last Admin: 11/13/19 08:14 Dose: 40 mg Hydromorphone HCl (Dilaudid) 2 mg PO Q6H PRN PRN Reason: Pain Levofloxacin/Dextrose 750 mg/ (Premix) 150 mls @ 100 mls/hr IV Q24H [facility] Last Admin: 11/13/19 13:02 Dose: 100 mls/hr Lamotrigine (Lamotrigine) 75 mg PO DAILY [facility] Stop: 11/21/19 09:01 Lamotrigine (Lamotrigine) 100 mg PO BEDTIME [facility] Stop: 11/21/19 21:01 Lamotrigine (Lamotrigine) 100 mg PO BID [facility] Stop: 11/28/19 21:01 Lamotrigine (Lamotrigine) 75 mg PO BID [facility] Stop: 11/14/19 21:01 Last Admin: 11/13/19 20:35 Dose: 75 mg Morphine Sulfate (Ms Contin) 15 mg PO Q12H [facility] Last Admin: 11/14/19 04:08 Dose: 15 mg Nystatin (Nystatin Oral Syringe) 500,000 unit PO QID [facility] Last Admin: 11/13/19 20:39 Dose: 500,000 unit Ondansetron HCl (Zofran) 4 mg IV Q4H PRN PRN Reason: Nausea/Vomiting Last Admin: 11/13/19 18:09 Dose: 4 mg Potassium Chloride (Klor-Con M20) 20 meq PO DAILY [facility] Last Admin: 11/13/19 08:11 Dose: 20 meq Sertraline HCl (Zoloft) 25 mg PO DAILY [facility] Last Admin: 11/13/19 08:10 Dose: 25 mg Sodium Chloride (Saline Flush) 10 ml FLUSH ASDIRECTED PRN PRN Reason: Keep Vein Open Last Admin: 11/11/19 13:21 Dose: 10 ml Tramadol HCl (Ultram) 50 mg PO Q6H PRN PRN Reason: Pain (mild 1-3) Last Admin: 11/13/19 20:33 Dose: 50 mg Trazodone HCl (Trazodone) 150 mg PO BEDTIME [facility] Last Admin: 11/13/19 20:38 Dose: 150 mg Discontinued Medications Baclofen (Lioresal) 5 mg PO TID PRN PRN Reason: Other Diphenoxylate HCl/Atropine (Lomotil 0.025-2.5 Mg) tab PO QID PRN PRN Reason: Diarrhea Diphenoxylate HCl/Atropine (Lomotil 0.025-2.5 Mg) 1 tab PO QID PRN PRN Reason: Diarrhea Hydromorphone HCl (Dilaudid) 0.5 mg IVPUSH ONETIME ONE Stop: 11/11/19 14:40 Last Admin: 11/11/19 15:43 Dose: 0.25 mg Hydromorphone HCl (Dilaudid) 2 mg PO Q6H PRN PRN Reason: Pain Ceftriaxone Sodium 2 gm/ (Sodium Chloride) 100 mls @ 200 mls/hr IV Q24H [facility] Last Admin: 11/12/19 20:15 Dose: 200 mls/hr Lamotrigine (Lamotrigine) 75 mg PO BID [facility] Stop: 11/14/19 21:01 Last Admin: 11/12/19 20:14 Dose: 75 mg Magnesium Hydroxide (Milk Of Magnesia) 30 ml PO Q4H ONE Stop: 11/13/19 10:01 Last Admin: 11/13/19 10:04 Dose: 30 ml Lamotrigine 25 Tab - (Pts Own Med) 0 tab PO ASDIRECTED [facility] Trazodone Hcl 150 Mg (TabOwn Med) 150 mg PO BEDTIME [facility] Last Admin: 11/12/19 21:52 Dose: 150 mg Sertraline HCl (Zoloft) 25 mg PO DAILY [facility] Last Admin: 11/12/19 08:21 Dose: 25 mg Tramadol HCl (Ultram) 50 mg PO Q6H PRN PRN Reason: Pain (mild 1-3) Last Admin: 11/12/19 08:44 Dose: 50 mg - Exam Quality Assessment: DVT Prophylaxis General: Alert, Oriented, Cooperative, No Acute Distress HEENT: Pupils Equal, Pupils Reactive, Mucous Membr. Moist/[place] Neck: Supple, Trachea Midline Lungs: Clear to Auscultation, Normal Respiratory Effort, Decreased Breath Sounds Cardiovascular: Regular Rate, Regular Rhythm, Other (Port in chest) GI/Abdominal Exam: Normal Bowel Sounds, Soft, Non-Tender, No Distention (Female) Exam: Deferred Back Exam: Normal Inspection, Full Range of Motion Extremities: Normal Inspection, Normal Range of Motion, Non-Tender, No Pedal Edema, Normal Capillary Refill Skin: Warm, Dry, Intact Neurological: No New Focal Deficit Psy/Mental Status: Alert, Normal Affect, Normal Mood Sepsis Event Note - Evaluation Sepsis Screening Result: No Definite Risk - Focused Exam Vital Signs: Vital Signs Temp Pulse Resp BP Pulse Ox Pulse Ox 11/14/19 06:56 93 L 11/14/19 04:07 97.5 F 72 20 100/69 98 11/14/19 00:18 99.1 F 11/13/19 23:35 100.0 F 11/13/19 23:32 100.0 F 86 18 100/43 L 92 L Date Exam was Performed: 11/14/19 Time Exam was Performed: 12:27 - Problem List & Annotations (1) Leukocytosis SNOMED Code(s): 931357755, 492265973 Code(s): D72.829 - ELEVATED WHITE BLOOD CELL COUNT, UNSPECIFIED Status: Acute Priority: High Current Visit: Yes Qualifiers: Leukocytosis type: unspecified Qualified Code(s): D72.829 - Elevated white blood cell count, unspecified (2) Pharyngitis SNOMED Code(s): 394032598 Code(s): J02.9 - ACUTE PHARYNGITIS, UNSPECIFIED Status: Acute Priority: High Current Visit: Yes Qualifiers: Pharyngitis/tonsillitis etiology: unspecified etiology Qualified Code(s): J02.9 - Acute pharyngitis, unspecified (3) Acute febrile illness SNOMED Code(s): 904378252 Code(s): R50.9 - FEVER, UNSPECIFIED Status: Acute Priority: High Current Visit: Yes (4) Immunocompromised state SNOMED Code(s): 105247549 Code(s): D89.9 - DISORDER INVOLVING THE IMMUNE MECHANISM, UNSPECIFIED Status: Chronic Priority: Medium Current Visit: No (5) Anxiety SNOMED Code(s): 82244898 Code(s): F41.9 - ANXIETY DISORDER, UNSPECIFIED Status: Chronic Priority: Low Current Visit: No (6) COPD (chronic obstructive pulmonary disease) SNOMED Code(s): 13707236 Code(s): J44.9 - CHRONIC OBSTRUCTIVE PULMONARY DISEASE, UNSPECIFIED Status : Chronic Priority: Medium Current Visit: No Qualifiers: COPD type: unspecified COPD Qualified Code(s): J44.9 - Chronic obstructive pulmonary disease, unspecified (7) Depression SNOMED Code(s): 55823002 Code(s): F32.9 - MAJOR DEPRESSIVE DISORDER, SINGLE EPISODE, UNSPECIFIED Status: Chronic Priority: Low Current Visit: No Qualifiers: Depression Type: other depression Qualified Code(s): F32.89 - Other specified depressive episodes (8) History of hepatitis C SNOMED Code(s): 34803166803917, 49432539999954 Code(s): Z86.19 - PERSONAL HISTORY OF OTHER INFECTIOUS AND PARASITIC DISEASES Status: Chronic Priority: Low Current Visit: No (9) History of laparoscopic cholecystectomy SNOMED Code(s): 312992100 Code(s): Z90.49 - ACQUIRED ABSENCE OF OTHER SPECIFIED PARTS OF DIGESTIVE TRACT Status: Chronic Priority: Low Current Visit: No (10) History of migraine SNOMED Code(s): 687153056 Code(s): Z86.69 - PERSONAL HISTORY OF DIS OF THE NERVOUS SYS AND SENSE ORGANS Status: Chronic Priority: Low Current Visit: No (11) History of seizures SNOMED Code(s): 241901704 Code(s): Z87.898 - PERSONAL HISTORY OF OTHER SPECIFIED CONDITIONS Status: Chronic Priority: Low Current Visit: No (12) History of suicide attempt SNOMED Code(s): 908809101, 208401225 Code(s): Z91.5 - PERSONAL HISTORY OF SELF-HARM Status: Chronic Priority: Low Current Visit: No (13) Liver metastases Status: Chronic Priority: Medium Current Visit: No (14) Osteoarthritis SNOMED Code(s): 938728453 Code(s): M19.90 - UNSPECIFIED OSTEOARTHRITIS, UNSPECIFIED SITE Status: Chronic Priority: Medium Current Visit: No Qualifiers: Osteoarthritis location: unspecified site Osteoarthritis type: unspecified Qualified Code(s): M19.90 - Unspecified osteoarthritis, unspecified site (15) Primary cancer of right lung metastatic to other site SNOMED Code(s): 96017330, 619035689 Code(s): C34.91 - MALIGNANT NEOPLASM OF UNSP PART OF RIGHT BRONCHUS OR LUNG Status: Chronic Priority: Medium Current Visit: No - Problem List Review Problem List Initiated/Reviewed/Updated: Yes - My Orders Last 24 Hours: My Active Orders 11/13/19 12:30 Levofloxacin/Dextrose 5%-Water [Levaquin in D5W 750 MG/150 ML] 750 mg Premix Bag 1 bag IV Q24H 11/15/19 05:11 CBC WITH AUTO DIFF [HEME] AM 11/16/19 05:11 CBC WITH AUTO DIFF [HEME] AM 11/17/19 05:11 CBC WITH AUTO DIFF [HEME] AM - Plan Plan:: Assessment 54-year-old female with metastatic lung cancer to liver presents to the emergency room with pharyngitis and leukocytosis * Negative rapid strep and flu * Ulcer on the right side of her uvula - improved * Pharyngeal erythema - improved * Possible oral candidiasis - on nystatin * WBC 33.2-->24.74-->29.17-->25.54, C-reactive protein 23.8-->18.2-->19.6, * White count, platelets, and C-reactive protein are likely reactive * This is the fifth hospitalization in the last 6 weeks. * Dr. Pacheco spoke with her oncologist Dr. Blackwell who stated that she is likely fighting some kind of infection and to continue on Rocephin until discharge and then discharged on Levaquin. Due to fever will change to Levaquin today. * Blood cultures and culture from recent Port-A-Cath negative Depression, anxiety * Home med: Zoloft Chronic pain including back pain * Home meds: Dilaudid, baclofen, and Ultram Seizure disorder * Home med: Lamictal COPD * No symptoms currently * Continue to monitor Plan * Refer for observation-->upgraded to inpatient * Switch to PO Levaquin * Nystatin swish and swallow 4 times daily * Cepacol for throat pain * O2 As needed - RT to qualify - appears to desaturate at night * Continue home meds except NSAIDs * VTE prophylaxis with Lovenox * CODE STATUS: Full code * Likely discharge tomorrow pending continued stability
[2019-11-14] MEDS: Levofloxacin 750 MG Tab PO SCH (12:54)
[2019-11-14] MEDS ORDERED: LORazepam 0.5 MG Tab PO PRN (17:18)
[2019-11-14] MEDS: Aluminum Hydroxide/Magnesium Hydroxide/Simethicone Susp 30 ML Cup PO PRN (17:19)
[2019-11-14] MEDS: Ondansetron 4 MG/2 ML SDV IV PRN (17:23)
--- NOTE | 2019-11-14 18:40 | CR ---
Chest: 2 views of the chest were obtained. Comparison: Previous chest x-ray of 11/11/19. Increased density within the right lung base which is fairly stable from previous studies presumably representing treated lung cancer. Slight blunting of the lateral left costophrenic angle is seen and is difficult to exclude minimal pleural effusion. Lungs are hyperinflated compatible with emphysematous change. No acute parenchymal change is otherwise seen. Lungs are hyperinflated on the lateral view. Right-sided infusion port is seen. Mild scoliosis is noted within the spine. Impression: 1. Increased density with right lung base which is stable from prior studies most likely representing site of previous treated neoplasm. 2. Minimal blunting of the lateral left costophrenic angle and difficult to exclude minimal pleural effusion. 3. Emphysematous change and other stable findings as noted above. Diagnostic code #3 This report was dictated in MDT
[2019-11-14] MEDS: Baclofen 10 MG Tab PO PRN (20:46)
[2019-11-14] MEDS: Acetaminophen 325 MG Tab PO PRN (20:47)
[2019-11-15] MEDS: Ondansetron 4 MG/2 ML SDV IV PRN (02:58)
[2019-11-15] MEDS: Benzocaine/Cetylpyridinium/Menthol Lozenge MUCMEM PRN (02:58)
[2019-11-15] MEDS: Morphine 15 MG Tab.ER PO SCH (05:37)
[2019-11-15] MEDS: Sertraline 25 MG Tab PO SCH (08:28)
[2019-11-15] MEDS: Nystatin Susp 100,000 Unit/ML 5 ML Oral Syringe PO SCH ×2 (08:29→13:12)
[2019-11-15] MEDS: Potassium Chloride 20 MEQ Tab.ER PO SCH (08:29)
[2019-11-15] MEDS: Enoxaparin 40 MG/0.4 ML Syringe SUBCUT SCH (08:29)
--- NOTE | 2019-11-15 12:49 | PCM.DCSUM1 ---
Discharge Summary - Hospital Course HPI Initial Comments: 54-year-old female who was recently diagnosed with lung cancer with mets to the liver has been hospitalized 4 times in the last 6 weeks. Patient was hospitalized here the first 2 times with pneumonia the first time with mycoplasma and RSV the second time secondary to pain. She was then seen in the emergency room and transferred to [place] 2 more times after her first dose of chemotherapy. She apparently was hospitalized last time for approximately 1 week and believes she was given IV antibiotics. She was just released from [facility] in [place] 3 days ago. Today she presents secondary to a sore throat that started this morning. She denies any cough does have occasional chills but no fever. No abdominal pain, nausea or vomiting. Her mouth does feel dry she is having difficulty eating and drinking because of throat pain. In the emergency room her rapid strep and flu were negative. Her white count was 33,200 and her C-reactive protein was 23.8. Lactic acid of 1.8. She was afebrile and not tachycardic. Blood pressure was good. Chest x-ray showed improvement from last x-ray with no pneumonia. UA was clear. Dr. Horner spoke with Dr. Olivera the on-call oncologist who recommended blood cultures and admission for observation. He also recommended speaking with her oncologist, Dr. Sandoval, tomorrow. Diagnosis: Stroke: No - Discharge Data Discharge Date: 11/15/19 (Admit date: 11/11/19) Discharge Disposition: Home, Self-Care 01 Condition: Good - Referral to Home Health Primary Care Physician: Ping Tamez MD - Discharge Diagnosis/Problem(s) (1) Leukocytosis SNOMED Code(s): 086127203, 983092949 ICD Code: D72.829 - ELEVATED WHITE BLOOD CELL COUNT, UNSPECIFIED Status: Acute Priority: High Current Visit: Yes Qualifiers: Leukocytosis type: unspecified Qualified Code(s): D72.829 - Elevated white blood cell count, unspecified (2) Pharyngitis SNOMED Code(s): 646097706 ICD Code: J02.9 - ACUTE PHARYNGITIS, UNSPECIFIED Status: Acute Priority: High Current Visit: Yes Qualifiers: Pharyngitis/tonsillitis etiology: unspecified etiology Qualified Code(s): J02.9 - Acute pharyngitis, unspecified (3) Acute febrile illness SNOMED Code(s): 947902349 ICD Code: R50.9 - FEVER, UNSPECIFIED Status: Acute Priority: High Current Visit: Yes (4) Immunocompromised state SNOMED Code(s): 878196337 ICD Code: D89.9 - DISORDER INVOLVING THE IMMUNE MECHANISM, UNSPECIFIED Status: Chronic Priority: Medium Current Visit: No (5) Anxiety SNOMED Code(s): 18379565 ICD Code: F41.9 - ANXIETY DISORDER, UNSPECIFIED Status: Chronic Priority : Low Current Visit: No (6) COPD (chronic obstructive pulmonary disease) SNOMED Code(s): 40260059 ICD Code: J44.9 - CHRONIC OBSTRUCTIVE PULMONARY DISEASE, UNSPECIFIED Status : Chronic Priority: Medium Current Visit: No Qualifiers: COPD type: unspecified COPD Qualified Code(s): J44.9 - Chronic obstructive pulmonary disease, unspecified (7) Depression SNOMED Code(s): 69064287 ICD Code: F32.9 - MAJOR DEPRESSIVE DISORDER, SINGLE EPISODE, UNSPECIFIED Status: Chronic Priority: Low Current Visit: No Qualifiers: Depression Type: other depression Qualified Code(s): F32.89 - Other specified depressive episodes (8) History of hepatitis C SNOMED Code(s): 99077901471454, 77214710900182 ICD Code: Z86.19 - PERSONAL HISTORY OF OTHER INFECTIOUS AND PARASITIC DISEASES Status: Chronic Priority: Low Current Visit: No (9) History of laparoscopic cholecystectomy SNOMED Code(s): 489871076 ICD Code: Z90.49 - ACQUIRED ABSENCE OF OTHER SPECIFIED PARTS OF DIGESTIVE TRACT Status: Chronic Priority: Low Current Visit: No (10) History of migraine SNOMED Code(s): 519911130 ICD Code: Z86.69 - PERSONAL HISTORY OF DIS OF THE NERVOUS SYS AND SENSE ORGANS Status: Chronic Priority: Low Current Visit: No (11) History of seizures SNOMED Code(s): 377377343 ICD Code: Z87.898 - PERSONAL HISTORY OF OTHER SPECIFIED CONDITIONS Status: Chronic Priority: Low Current Visit: No (12) History of suicide attempt SNOMED Code(s): 515399415, 033597524 ICD Code: Z91.5 - PERSONAL HISTORY OF SELF-HARM Status: Chronic Priority : Low Current Visit: No (13) Liver metastases Status: Chronic Priority: Medium Current Visit: No (14) Osteoarthritis SNOMED Code(s): 711383701 ICD Code: M19.90 - UNSPECIFIED OSTEOARTHRITIS, UNSPECIFIED SITE Status: Chronic Priority: Medium Current Visit: No Qualifiers: Osteoarthritis location: unspecified site Osteoarthritis type: unspecified Qualified Code(s): M19.90 - Unspecified osteoarthritis, unspecified site (15) Primary cancer of right lung metastatic to other site SNOMED Code(s): 18671317, 696150902 ICD Code: C34.91 - MALIGNANT NEOPLASM OF UNSP PART OF RIGHT BRONCHUS OR LUNG Status: Chronic Priority: Medium Current Visit: No (16) Bronchitis SNOMED Code(s): 17095123 ICD Code: J40 - BRONCHITIS, NOT SPECIFIED ACUTE OR CHRONIC Status: Acute Priority: High Current Visit: Yes - Patient Summary/Data Labs Pending at D/C: None Recommended Follow-up Testing/Procedures: Follow-up with PCP within 5-7 days of discharge - Recommend repeat CBC at that time Follow-up with oncology as scheduled. Hospital Course: [place] was admitted to the floor due to pharyngitis, leukocytosis, and a possible bronchitis. Infectious work-up in the ED was grossly negative otherwise with a negative rapid strep and flu. Count was high at 33.2 and CRP elevated at 23.8. It is unknown if these are elevated due to stress, her ongoing neoplasms, and actual infection. Platelets are also noted to be elevated. Chest x-ray in the ED was suggestive of a possible mild bronchitis. The ED provider did speak with on-call oncologist, Dr. Peñaloza, who recommended the patient be admitted and that we contact the patient's primary oncologist in the morning. Dr. Pacheco, attending hospitalist, did contact Dr. Blackwell, patient's primary oncologist who recommended IV Rocephin and changed to p.o. Levaquin at discharge. Patient did have a very low-grade fever while here and a small spike in WBC. Because of this decision was made to switch from IV Rocephin to IV Levaquin. Her WBC and CRP continue to trend down. Blood cultures were also obtained peripherally and from patient's implanted port which were all negative throughout her stay. She was noted to have a small ulcer on the right side of her uvula, along with throat pain. She was started on oral nystatin with good response. She is also given Cepacol lozenges. Her medications were otherwise continued. Patient is on an increasing lamotrigine dosing schedule, which was started outpatient, which was continued. Patient has been hospitalized multiple times and this is her fifth hospitalization in the past 6 weeks. Prior to discharge we did discuss how she would likely have some of the symptoms throughout her treatment that she should remain in contact with her oncologist. She stated that she felt pretty good today. Overnight pulse ox was obtained and she was prescribed 1 L of oxygen overnight while sleeping, no need for oxygen during the day. She reports occasional nausea which does wax and wane. She was prescribed as needed Zofran at discharge. She should continue 5 more days of 750 mg p.o. oral Levaquin. She does report that her roommate smokes in the house and she was instructed to avoid this if at all possible, as it will likely exacerbate her symptoms. She was discharged home today. - Patient Instructions Diet: Usual Diet as Tolerated Activity: As Tolerated Showering/Bathing: May Shower Notify Provider of: Fever, Increased Pain, Nausea and/or Vomiting Other/Special Instructions: Follow-up with primary care provider, Dr. Tamez, within 5-7 days of discharge, sooner if needed. Follow-up with oncology as already scheduled. Continue your Lamotrigine dose increase directions as prior. Continue 75mg in the AM and 100mg in the PM until november. Starting november start taking 100 mg twice daily. Wear your oxygen as directed: None during the day, 1L at night or when sleeping. Continue to take your antibitoic as prescribed until you run out, even if you feel 100% better. Resume home medications as directed. Take tyleonl per the manufacturers recommendation as needed for pain. Stay hydrated. Be sure to drink plenty of water and keep eating as best you can. Continue to utilize you incetive spirometer (clear/blue device you inhale through.). Avoid being around cigarette smoke. Should symptoms return or worsen, contact your primary care provider, onlcology, or return to the Emergency Department. - Discharge Plan *PRESCRIPTION DRUG MONITORING PROGRAM REVIEWED*: No *COPY OF PRESCRIPTION DRUG MONITORING REPORT IN PATIENT RUFINO: No Prescriptions/Med Rec: levoFLOXacin [Levaquin] 750 mg PO Q24H #5 tablet Nystatin [Nystatin Oral Syringe] 500,000 unit PO QID 5 Days #5 syringe Ondansetron [Zofran] 4 mg PO Q6H PRN #12 tab PRN Reason: Nausea Home Medications: Home Meds traZODone HCl [Trazodone HCl] 150 mg PO BEDTIME 05/19/18 [History] Sertraline [Zoloft] 25 mg PO DAILY 08/14/19 [History] lamoTRIgine 75 mg PO BID 10/26/19 [History] Diphenoxylate HCl/Atropine [Lomotil] 2 mg PO QID PRN 11/04/19 [History] HYDROmorphone [Dilaudid] 2 mg PO Q6H PRN 11/04/19 [History] Baclofen 5 mg PO TID PRN 11/11/19 [History] Naproxen 250 tab PO Q12HR PRN 11/11/19 [History] traMADol [Ultram] 50 mg PO Q6H PRN 11/11/19 [History] Morphine Sulfate [Morphine Sulfate ER] 15 mg PO Q12H 11/12/19 [History] Potassium Chloride 20 meq PO DAILY 11/12/19 [History] Nystatin [Nystatin Oral Syringe] 500,000 unit PO QID 5 Days #5 syringe 11/15/19 [Rx] Ondansetron [Zofran] 4 mg PO Q6H PRN #12 tab 11/15/19 [Rx] levoFLOXacin [Levaquin] 750 mg PO Q24H #5 tablet 11/15/19 [Rx] Oxygen Therapy Mode: Room Air Oxygen Flow Rate (L/min): 1 (1L at night, nothing during the day) Patient Handouts: Fever, Adult, Chronic Obstructive Pulmonary Disease, Easy-to- Read, Home Oxygen Use, Adult, Acute Bronchitis, Adult, [id number], Pharyngitis , [id number] Referrals: Ping Tamez MD [Primary Care Provider] - 11/20/19 9:00 am (Follow Up with Dr. Tamez at 0900 on 11/20/2019.) Justin Blackwell MD [Ordering Only Provider] - 11/21/19 11:30 am (Oncology appointment with DR Indio Blackwell on Tuesday @ 11:30 CUSTOMER ACCOUNT SPECIALIST with labs prior at 10:30 CUSTOMER ACCOUNT SPECIALIST @ [facility] in [facility].) - Discharge Summary/Plan Comment DC Time >30 min.: Yes (45 mins ) - General Info Date of Service: 11/15/19 Admission Dx/Problem (Free Text: Admission Diagnosis/Problem Admission Diagnosis/Problem Leukocytosis Functional Status: Reports: Pain Controlled, Tolerating Diet, Ambulating, Urinating, Incentive Spirometry. Denies: New Symptoms - Review of Systems General: Reports: Weakness, Fatigue. Denies: Fever, Malaise, Chills HEENT: Reports: No Symptoms. Denies: Headaches, Sore Throat Pulmonary: Reports: Cough, Sputum. Denies: Shortness of Breath, Pleuritic Chest Pain, Wheezing Cardiovascular: Reports: No Symptoms. Denies: Chest Pain, Dyspnea on Exertion, Edema Gastrointestinal: Reports: No Symptoms. Denies: Abdominal Pain, Constipation, Diarrhea, Nausea, Vomiting Genitourinary: Reports: No Symptoms. Denies: Pain Musculoskeletal: Reports: No Symptoms Skin: Reports: No Symptoms. Denies: Cyanosis Neurological: Reports: Weakness. Denies: Confusion, Difficulty Walking, Gait Disturbance Psychiatric: Reports: No Symptoms - Patient Data Vitals - Most Recent: Last Vital Signs Temp 97.9 F 11/15/19 07:46 Pulse 78 11/15/19 07:46 Resp 20 11/15/19 07:46 BP 98/40 L 11/15/19 07:46 Pulse Ox 93 L 11/15/19 07:46 Orthostatic Blood Pressure [ 104/79 Standing] Orthostatic Blood Pressure [ 99/61 Sitting] Orthostatic Blood Pressure [ 95/59 Supine] Weight - Most Recent: 102 lb I&O - Last 24 hours: Intake & Output 11/14/19 11/15/19 11/15/19 22:59 06:59 14:59 Intake Total 2050 800 Output Total 2700 1450 Balance -650 -650 Lab Results - Last 24 hrs: Laboratory Results - last 24 hr 11/15/19 11/15/19 Range/Units 05:35 05:35 WBC 23.64 H (3.98-10.04) K/mm3 RBC 3.22 L (3.98-5.22) M/mm3 Hgb 8.4 L (11.2-15.7) gm/dl Hct 27.7 L (34.1-44.9) % MCV 86.0 (79.4-94.8) fl MCH 26.1 (25.6-32.2) pg MCHC 30.3 L (32.2-35.5) g/dl RDW Std Deviation 51.4 H (36.4-46.3) fL Plt Count 476 H (182-369) K/mm3 MPV 8.8 L (9.4-12.3) fl Neut % (Auto) 81.2 H (34.0-71.1) % Lymph % (Auto) 4.5 L (19.3-51.7) % [place] % (Auto) 9.4 (4.7-12.5) % Eos % (Auto) 4.1 (0.7-5.8) Baso % (Auto) 0.3 (0.1-1.2) % Neut # (Auto) 19.20 H (1.56-6.13) K/mm3 Lymph # (Auto) 1.07 L (1.18-3.74) K/mm3 [place] # (Auto) 2.22 H (0.24-0.36) K/mm3 Eos # (Auto) 0.97 H (0.04-0.36) K/mm3 Baso # (Auto) 0.06 (0.01-0.08) K/mm3 Manual Slide Review Abnormal smear Sodium 135 L (136-145) mEq/L Potassium 4.4 (3.5-5.1) mEq/L Chloride 98 (98-107) mEq/L Carbon Dioxide 30 (21-32) mEq/L Anion Gap 11.4 (5-15) BUN 7 (7-18) mg/dL Creatinine 0.9 (0.55-1.02) mg/dL Est Cr Clr Drug Dosing 52.19 mL/min Estimated GFR (MDRD) > 60 (>60) mL/min BUN/Creatinine Ratio 7.8 L (14-18) Glucose 91 (74-106) mg/dL Calcium 8.9 (8.5-10.1) mg/dL Magnesium 2.2 (1.8-2.4) mg/dl C-Reactive Protein 19.9 H* (<1.0) mg/dL TYREE Results - Last 24 hrs: Microbiology 11/11/19 18:49 Aerobic Blood Culture - Preliminary Blood - Port-A-Cath NO GROWTH AFTER 3 DAYS Anaerobic Blood Culture - Preliminary NO GROWTH AFTER 3 DAYS 11/11/19 16:59 Aerobic Blood Culture - Preliminary Blood - Port-A-Cath NO GROWTH AFTER 3 DAYS Anaerobic Blood Culture - Preliminary NO GROWTH AFTER 3 DAYS 11/11/19 15:40 Aerobic Blood Culture - Preliminary Blood NO GROWTH AFTER 3 DAYS Anaerobic Blood Culture - Preliminary NO GROWTH AFTER 3 DAYS Med Orders - Current: Current Medications Acetaminophen (Tylenol) 650 mg PO Q4H PRN PRN Reason: Pain (Mild 1-3)/fever Last Admin: 11/14/19 20:47 Dose: 650 mg Al Hydroxide/Mg Hydroxide (Mag-Al Plus) 30 ml PO Q4H PRN PRN Reason: Heartburn Last Admin: 11/14/19 17:19 Dose: 30 ml Baclofen (Lioresal) 5 mg PO TID PRN PRN Reason: Other Last Admin: 11/14/19 20:46 Dose: 5 mg Benzocaine/Menthol (Cepacol Sore Throat) 1 lozenge MUCMEM Q2H PRN PRN Reason: Sore Throat Last Admin: 11/15/19 02:58 Dose: 1 lozenge Diphenoxylate HCl/Atropine (Lomotil 0.025-2.5 Mg) 1 tab PO QID PRN PRN Reason: Diarrhea Enoxaparin Sodium (Lovenox) 40 mg SUBCUT DAILY [facility] Last Admin: 11/15/19 08:29 Dose: 40 mg Heparin Sodium (Porcine) (Heparin Lock Flush 100 Units/Ml) 500 units FLUSH ASDIRECTED PRN PRN Reason: deaccess port Hydromorphone HCl (Dilaudid) 2 mg PO Q6H PRN PRN Reason: Pain Lamotrigine (Lamotrigine) 75 mg PO DAILY [facility] Stop: 11/21/19 09:01 Last Admin: 11/15/19 08:32 Dose: 75 mg Lamotrigine (Lamotrigine) 100 mg PO BEDTIME [facility] Stop: 11/21/19 21:01 Lamotrigine (Lamotrigine) 100 mg PO BID [facility] Stop: 11/28/19 21:01 Levofloxacin (Levaquin) 750 mg PO Q24H [facility] Last Admin: 11/14/19 12:54 Dose: 750 mg Lorazepam (Ativan) 0.5 mg PO Q8H PRN PRN Reason: Anxiety Last Admin: 11/14/19 17:28 Dose: 0.5 mg Morphine Sulfate (Ms Contin) 15 mg PO Q12H [facility] Last Admin: 11/15/19 05:37 Dose: 15 mg Nystatin (Nystatin Oral Syringe) 500,000 unit PO QID [facility] Last Admin: 11/15/19 08:29 Dose: 500,000 unit Ondansetron HCl (Zofran) 4 mg IV Q4H PRN PRN Reason: Nausea/Vomiting Last Admin: 11/15/19 02:58 Dose: 4 mg Potassium Chloride (Klor-Con M20) 20 meq PO DAILY [facility] Last Admin: 11/15/19 08:29 Dose: 20 meq Sertraline HCl (Zoloft) 25 mg PO DAILY [facility] Last Admin: 11/15/19 08:28 Dose: 25 mg Sodium Chloride (Saline Flush) 10 ml FLUSH ASDIRECTED PRN PRN Reason: Keep Vein Open Last Admin: 11/11/19 13:21 Dose: 10 ml Tramadol HCl (Ultram) 50 mg PO Q6H PRN PRN Reason: Pain (mild 1-3) Last Admin: 11/13/19 20:33 Dose: 50 mg Trazodone HCl (Trazodone) 150 mg PO BEDTIME [facility] Last Admin: 11/14/19 20:44 Dose: 150 mg Discontinued Medications Baclofen (Lioresal) 5 mg PO TID PRN PRN Reason: Other Diphenoxylate HCl/Atropine (Lomotil 0.025-2.5 Mg) tab PO QID PRN PRN Reason: Diarrhea Diphenoxylate HCl/Atropine (Lomotil 0.025-2.5 Mg) 1 tab PO QID PRN PRN Reason: Diarrhea Hydromorphone HCl (Dilaudid) 0.5 mg IVPUSH ONETIME ONE Stop: 11/11/19 14:40 Last Admin: 11/11/19 15:43 Dose: 0.25 mg Hydromorphone HCl (Dilaudid) 2 mg PO Q6H PRN PRN Reason: Pain Ceftriaxone Sodium 2 gm/ (Sodium Chloride) 100 mls @ 200 mls/hr IV Q24H [facility] Last Admin: 11/12/19 20:15 Dose: 200 mls/hr Levofloxacin/Dextrose 750 mg/ (Premix) 150 mls @ 100 mls/hr IV Q24H [facility] Last Admin: 11/13/19 13:02 Dose: 100 mls/hr Lamotrigine (Lamotrigine) 75 mg PO BID [facility] Stop: 11/14/19 21:01 Last Admin: 11/12/19 20:14 Dose: 75 mg Lamotrigine (Lamotrigine) 75 mg PO BID [facility] Stop: 11/14/19 21:01 Last Admin: 11/14/19 20:44 Dose: 75 mg Magnesium Hydroxide (Milk Of Magnesia) 30 ml PO Q4H ONE Stop: 11/13/19 10:01 Last Admin: 11/13/19 10:04 Dose: 30 ml Lamotrigine 25 Tab - (Pts Own Med) 0 tab PO ASDIRECTED [facility] Trazodone Hcl 150 Mg (TabOwn Med) 150 mg PO BEDTIME [facility] Last Admin: 11/12/19 21:52 Dose: 150 mg Sertraline HCl (Zoloft) 25 mg PO DAILY [facility] Last Admin: 11/12/19 08:21 Dose: 25 mg Tramadol HCl (Ultram) 50 mg PO Q6H PRN PRN Reason: Pain (mild 1-3) Last Admin: 11/12/19 08:44 Dose: 50 mg - Exam Quality Assessment: Reports: DVT Prophylaxis General: Reports: Alert, Oriented, Cooperative, No Acute Distress HEENT: Reports: Pupils Equal, Pupils Reactive, Mucous Membr. Moist/[place] Neck: Reports: Supple, Trachea Midline Lungs: Reports: Normal Respiratory Effort, Decreased Breath Sounds Cardiovascular: Reports: Regular Rate, Regular Rhythm GI/Abdominal Exam: Normal Bowel Sounds, Soft, Non-Tender, No Abnormal Bruit (Female) Exam: Deferred Rectal (Female) Exam: Deferred Back Exam: Reports: Normal Inspection, Full Range of Motion Extremities: Normal Inspection, Normal Range of Motion, Non-Tender, No Pedal Edema, Normal Capillary Refill Skin: Reports: Warm, Dry, Intact Psy/Mental Status: Reports: Alert, Anxious
[2019-11-15] MEDS: Levofloxacin 750 MG Tab PO SCH (13:11)
[2019-11-15] MEDS ORDERED: lamoTRIgine 100 MG Tab PO SCH (21:00)
[2019-11-22] MEDS ORDERED: lamoTRIgine 100 MG Tab PO SCH (09:00)
== END 2019-11-15 14:21 | disposition home or self-care (01) | DRG 202 ==
LOC: JD.ED 12:14 → JD.MS 17:31 → OBSVTOIN 11-12 12:34 → JD.MS 11-12 12:35
PROVIDERS: ADMIT Family Medicine; ATTEND Family Medicine
DX: D84.9 Immunodeficiency, unspecified (principal); J20.9 Acute bronchitis, unspecified; C78.7 Secondary malignant neoplasm of liver and intrahepatic bile duct; C34.90 Malignant neoplasm of unspecified part of unspecified bronchus or lung; F32.9 Major depressive disorder, single episode, unspecified; C34.91 Malignant neoplasm of unspecified part of right bronchus or lung; J02.9 Acute pharyngitis, unspecified; D89.9 Disorder involving the immune mechanism, unspecified; F41.9 Anxiety disorder, unspecified; F32.89 Other specified depressive episodes; H54.7 Unspecified visual loss; G40.909 Epilepsy, unspecified, not intractable, without status epilepticus; Z90.711 Acquired absence of uterus with remaining cervical stump; K12.1 Other forms of stomatitis; M41.9 Scoliosis, unspecified; J44.9 Chronic obstructive pulmonary disease, unspecified; G89.29 Other chronic pain; Z80.3 Family history of malignant neoplasm of breast; Z88.6 Allergy status to analgesic agent; M19.90 Unspecified osteoarthritis, unspecified site; Z88.5 Allergy status to narcotic agent; Z86.19 Personal history of other infectious and parasitic diseases; Z90.49 Acquired absence of other specified parts of digestive tract; Z86.69 Personal history of other diseases of the nervous system and sense organs; Z87.898 Personal history of other specified conditions; Z91.5 Personal history of self-harm; Z79.899 Other long term (current) drug therapy; Z87.891 Personal history of nicotine dependence; M54.9 Dorsalgia, unspecified
CPT/HCPCS: 71046; 96365; 96375 ×2; 99284; 96372; 85025 ×2; 81001; 36415 ×2; 80053 ×2; 83735; 83605; 86140 ×2; 87081; 87804 ×2; 87430; 87040 ×3; A9270 ×9; J0696; J1650; J7050; J2405; J1170 ×2; G0378 ×2; 80048; 94762; 96374; 99283; J1642; J1956

== ENCOUNTER 2019-12-06 12:29 | Emergency (ER) | payer MEDICAID ==
--- NOTE | 2019-12-06 13:57 | CR ---
Chest: Portable view of the chest was obtained. Comparison: Prior chest x-ray of 11/14/19. Masslike density is again seen within the right chest. Lungs otherwise are clear. Right-sided infusion port is seen. Heart size and mediastinum are normal. Bony structures are grossly intact. Impression: 1. Stable appearing right sided lung mass. 2. Stable right-sided infusion port. 3. Nothing acute is appreciated. Diagnostic code #3 Study was dictated in [facility]
--- NOTE | 2019-12-06 14:20 | EDM.PDOC ---
ED HPI GENERAL MEDICAL PROBLEM - General Chief Complaint: Fever Stated Complaint: FEVER 101 X-3DAYS MUSCLE SORENESS Time Seen by Provider: 12/06/19 12:42 Source of Information: Reports: Patient History Limitations: Reports: No Limitations - History of Present Illness INITIAL COMMENTS - FREE TEXT/NARRATIVE: The patient presents with a fever. She has lung cancer with liver mets. She last had chemo about 3 weeks ago. She had the fever for about 3 days. It was as high as 101.1F. She denies cough, congestion, runny nose, sore throat, chest pain, shortness of breath, abdominal pain, nausea or vomiting. She see an oncologist at [facility]. She also has some body aches. Onset: Gradual Duration: Day(s): (3) Location: Reports: Generalized Quality: Reports: Ache Severity: Moderate Improves with: Reports: None Worsens with: Reports: None Associated Symptoms: Reports: Fever/Chills. Denies: Chest Pain, Cough, Headaches, Nausea/Vomiting, Shortness of Breath Generalized Pain Score (Numeric/FACES): 3 - Related Data Allergies Allergy/AdvReac Type Severity Reaction Status Date / Time ketorolac [From Toradol] AdvReac Vomiting Verified 11/11/19 13:27 Home Meds: Home Meds traZODone HCl [Trazodone HCl] 150 mg PO BEDTIME 05/19/18 [History] Sertraline [Zoloft] 25 mg PO DAILY 08/14/19 [History] lamoTRIgine 150 mg PO BID 10/26/19 [History] Baclofen 5 mg PO TID PRN 11/11/19 [History] Levofloxacin [Levaquin] 750 mg PO DAILY #7 tablet 12/06/19 [Rx] Past Medical History HEENT History: Reports: Impaired Vision, Other (See Below) Other HEENT History: wears glasses Respiratory History: Reports: COPD, Other (See Below) Other Respiratory History: lung cancer Gastrointestinal History: Reports: Hepatitis Other Gastrointestinal History: "cured for hepatitis C" Genitourinary History: Reports: None CREDIT OFFICE MANAGER History: Reports: Other CREDIT OFFICE MANAGER History: partial hysterectomy, vaginal x 3 deliveries Musculoskeletal History: Reports: Osteoarthritis Other Musculoskeletal History: and scoliosis of the spine Neurological History: Reports: Migraines, Seizure Psychiatric History: Reports: Anxiety, Depression, Suicide Attempt Immunologic History: Reports: Other (See Below) Other Immunologic History: Hep C- cured? Oncologic (Cancer) History: Reports: Liver, Lung, Metastatic Other Oncologic History: Last chemo-3 weeks ago-4 total treatments, next upcoming is the 2nd Dermatologic History: Reports: Other (See Below) Other Dermatologic History: dry skin - Infectious Disease History Infectious Disease History: Reports: Chicken Pox, Hepatitis C Other Infectious Disease History: had treatment and now is clear since November. - Past Surgical History HEENT Surgical History: Reports: Oral Surgery Other HEENT Surgeries/Procedures: upper dentures Respiratory Surgical History: Reports: None GI Surgical History: Reports: Appendectomy, Cholecystectomy Female Surgical History: Reports: Hysterectomy Neurological Surgical History: Reports: None Musculoskeletal Surgical History: Reports: None Social & Family History - Family History Family Medical History: Noncontributory Cardiac: Reports: CAD Oncologic: Reports: Breast - Tobacco Use Smoking Status *Q: Former Smoker Used Tobacco, but Quit: Yes Month/Year Tobacco Last Used: 5m - Caffeine Use Caffeine Use: Reports: Coffee, Soda Other Caffeine Use: 2 cups a day sometimes 3 - Recreational Drug Use Recreational Drug Use: No - Living Situation & Occupation Living situation: Reports: , with Family (Daughter, her 2 kids, and her boyfriend) Occupation: Disabled ED ROS GENERAL - Review of Systems Review Of Systems: See Below Constitutional: Reports: Fever. Denies: Chills HEENT: Reports: No Symptoms Respiratory: Reports: No Symptoms Cardiovascular: Reports: No Symptoms Endocrine: Reports: No Symptoms GI/Abdominal: Reports: No Symptoms : Reports: No Symptoms Musculoskeletal: Reports: No Symptoms ED EXAM, SEPSIS - Physical Exam Exam: See Below Exam Limited By: No Limitations General Appearance: Alert, No Apparent Distress Ears: Normal External Exam Nose: Normal Inspection Head: Atraumatic, Normocephalic Neck: Normal Inspection Respiratory/Chest: No Respiratory Distress, Lungs Clear, Normal Breath Sounds Cardiovascular: Regular Rate, Rhythm, No Edema, No Murmur GI/Abdominal Exam: Soft, Non-Tender, No Organomegaly, No Mass Extremities: Normal Inspection Course - Vital Signs Last Recorded V/S: Last Vital Signs Temp 99.7 F 12/06/19 12:43 Pulse 96 12/06/19 12:43 Resp 20 12/06/19 12:43 BP 143/65 H 12/06/19 12:43 Pulse Ox 100 12/06/19 12:43 - Orders/Labs/Meds Orders: Active Orders 24 hr Category Date Time Status Insert Alanis Catheter [Insert Urinary Catheter] [OM.PC] Care 12/06/19 15:05 Ordered Q24H Urinary Catheter Assessment [RC] ASDIRECTED Care 12/06/19 15:05 Active CORONAVIRUS COVID-19 PCR PHL Stat Lab 12/06/19 13:25 Received CULTURE BLOOD [BC] Stat Lab 12/06/19 13:25 Received CULTURE BLOOD [BC] Stat Lab 12/06/19 13:35 Received Blood Culture x2 Reflex Set [OM.PC] Stat Oth 12/06/19 13:03 Ordered Isolation [COMM] Routine Oth 12/06/19 13:04 Ordered Labs: Laboratory Tests 12/06/19 12/06/19 12/06/19 Range/Units 13:35 13:35 15:10 WBC 21.52 H (3.98-10.04) K/mm3 RBC 3.32 L (3.98-5.22) M/mm3 Hgb 8.9 L (11.2-15.7) gm/dl Hct 28.6 L (34.1-44.9) % MCV 86.1 (79.4-94.8) fl MCH 26.8 (25.6-32.2) pg MCHC 31.1 L (32.2-35.5) g/dl RDW Std Deviation 59.2 H (36.4-46.3) fL Plt Count 525 H (182-369) K/mm3 MPV 8.6 L (9.4-12.3) fl Neut % (Auto) 85.4 H (34.0-71.1) % Lymph % (Auto) 3.2 L (19.3-51.7) % [place] % (Auto) 10.4 (4.7-12.5) % Eos % (Auto) 0.3 L (0.7-5.8) Baso % (Auto) 0.1 (0.1-1.2) % Neut # (Auto) 18.38 H (1.56-6.13) K/mm3 Lymph # (Auto) 0.69 L (1.18-3.74) K/mm3 [place] # (Auto) 2.23 H (0.24-0.36) K/mm3 Eos # (Auto) 0.06 (0.04-0.36) K/mm3 Baso # (Auto) 0.03 (0.01-0.08) K/mm3 Manual Slide Review Abnormal smear Sodium 132 L (136-145) mEq/L Potassium 3.2 L (3.5-5.1) mEq/L Chloride 94 L (98-107) mEq/L Carbon Dioxide 28 (21-32) mEq/L Anion Gap 13.2 (5-15) BUN 14 (7-18) mg/dL Creatinine 0.8 (0.55-1.02) mg/dL Est Cr Clr Drug Dosing 58.14 mL/min Estimated GFR (MDRD) > 60 (>60) mL/min BUN/Creatinine Ratio 17.5 (14-18) Glucose 91 (74-106) mg/dL Calcium 9.0 (8.5-10.1) mg/dL Total Bilirubin 0.6 (0.2-1.0) mg/dL AST 21 (15-37) U/L ALT 22 (14-59) U/L Alkaline Phosphatase 286 H (46-116) U/L C-Reactive Protein 24.4 H* (<1.0) mg/dL Total Protein 7.5 (6.4-8.2) g/dl Albumin 2.5 L (3.4-5.0) g/dl Globulin 5.0 gm/dL Albumin/Globulin Ratio 0.5 L (1-2) Urine Color Light yellow (Yellow) Urine Appearance Clear (Clear) Urine pH 7.0 (5.0-8.0) Ur Specific [place] 1.015 (1.005-1.030) Urine Protein Negative (Negative) Urine Glucose (UA) Negative (Negative) Urine Ketones Negative (Negative) Urine Occult Blood 2+ H (Negative) Urine Nitrite Negative (Negative) Urine Bilirubin Negative (Negative) Urine Urobilinogen 0.2 (0.2-1.0) Ur Leukocyte Esterase Negative (Negative) Urine RBC 0-5 (0-5) /hpf Urine WBC Not seen (0-5) /hpf Ur Squamous Epith Cells Not seen (0-5) /hpf Urine Bacteria Not seen (FEW) /hpf Urine Mucus Not seen (FEW) /hpf - Re-Assessments/Exams Free Text/Narrative Re-Assessment/Exam: 12/06/19 14:19 I ordered labs, CXR, blood cultures and UA. 12/06/19 15:58 Her CXR shows stable appearing right sided lung mass. Stable right sided infusion port. Nothing acute is appreciated. 12/06/19 16:01 Her WBC was elevated at 21.52. Her Hgb was low at 8.9. Her alk phos was elevated. I called the oncologist rehabilitation aide at [facility] and he recommended levaquin daily until we get cultures back. I will discharge her home. Departure - Departure Time of Disposition: 16:10 Disposition: Home, Self-Care 01 Condition: Good Clinical Impression: Fever Qualifiers: Fever type: unspecified Qualified Code(s): R50.9 - Fever, unspecified Lung cancer, primary, with metastasis from lung to other site Qualifiers: Laterality: right Qualified Code(s): C34.91 - Malignant neoplasm of unspecified part of right bronchus or lung - Discharge Information *PRESCRIPTION DRUG MONITORING PROGRAM REVIEWED*: Not Applicable *COPY OF PRESCRIPTION DRUG MONITORING REPORT IN PATIENT RUFINO: Not Applicable Prescriptions: Levofloxacin [Levaquin] 750 mg PO DAILY #7 tablet Referrals: Ping Tamez MD [Primary Care Provider] - 1 Week Forms: ED Department Discharge Additional Instructions: Take your medication as prescribed. Take levaquin 750mg daily. We will call you with the COVID 19 results. Please return if you are worse. Sepsis Event Note - Evaluation Sepsis Screening Result: No Definite Risk - Focused Exam Vital Signs: Vital Signs Temp Pulse Resp BP Pulse Ox 12/06/19 12:43 99.7 F 96 20 143/65 H 100 Date Exam was Performed: 12/06/19 Time Exam was Performed: 16:01 - My Orders Last 24 Hours: My Active Orders 12/06/19 13:03 Blood Culture x2 Reflex Set [OM.PC] Stat 12/06/19 13:04 Isolation [COMM] Routine 12/06/19 13:25 CORONAVIRUS COVID-19 PCR PHL Stat CULTURE BLOOD [BC] Stat 12/06/19 13:35 CULTURE BLOOD [BC] Stat 12/06/19 15:05 Insert Alanis Catheter [Insert Urinary Catheter] [OM.PC] Q24H Urinary Catheter Assessment [RC] ASDIRECTED - Assessment/Plan Last 24 Hours: My Active Orders 12/06/19 13:03 Blood Culture x2 Reflex Set [OM.PC] Stat 12/06/19 13:04 Isolation [COMM] Routine 12/06/19 13:25 CORONAVIRUS COVID-19 PCR PHL Stat CULTURE BLOOD [BC] Stat 12/06/19 13:35 CULTURE BLOOD [BC] Stat 12/06/19 15:05 Insert Alanis Catheter [Insert Urinary Catheter] [OM.PC] Q24H Urinary Catheter Assessment [RC] ASDIRECTED
== END 2019-12-06 16:40 | disposition home or self-care (01) ==
LOC: JD.ED 12:29
DX: R50.9 Fever, unspecified (principal); C34.91 Malignant neoplasm of unspecified part of right bronchus or lung; Z88.8 Allergy status to other drugs, medicaments and biological substances; Z87.891 Personal history of nicotine dependence
CPT/HCPCS: 36415; 71045; 71045-26; 80053; 81001; 85025; 86140; 87040; 87804; 99283; 99283-25; U0002

== ENCOUNTER 2019-12-08 08:37 | Emergency (ER) | payer MEDICAID ==
--- NOTE | 2019-12-08 08:58 | EDM.PDOC ---
ED HPI GENERAL MEDICAL PROBLEM - General Chief Complaint: General Stated Complaint: MULTIPLE FALLS Time Seen by Provider: 12/08/19 08:57 - History of Present Illness INITIAL COMMENTS - FREE TEXT/NARRATIVE: 54-year-old female presents the emergency room with complaint of multiple falls. These falls started a couple of days ago on that day she was seen here and started on Levaquin as she had an elevated white count. No clear-cut diagnosis she is on chemotherapy for what sounds like a lung cancer with metastatic disease to the liver potentially elsewhere. The patient thinks it is a small cell, her understanding of the treatment goals is to slow the progression but it does not sound like they are looking for a state of remission. Patient is fallen forward a few times she has not struck her head or face but she has bumped her port a time or 2. The fall seem to be triggered by change of position and standing up. Patient states she is drinking plenty of fluid and trying to eat 3 meals a day. X-ray 2 days ago showed no acute changes lung mass no significant changes. Her white count was indeed elevated cultures pending. Blood cultures after 1 day are negative she had an influenza screen that was negative. - Related Data Allergies Allergy/AdvReac Type Severity Reaction Status Date / Time ketorolac [From Toradol] AdvReac Vomiting Verified 12/08/19 08:58 Home Meds: Home Meds traZODone HCl [Trazodone HCl] 150 mg PO BEDTIME 05/19/18 [History] Sertraline [Zoloft] 25 mg PO DAILY 08/14/19 [History] lamoTRIgine 150 mg PO BID 10/26/19 [History] Levofloxacin [Levaquin] 750 mg PO DAILY #7 tablet 12/06/19 [Rx] Potassium Chloride [Klor-Con M20] 20 meq PO Q8H #6 tab.er 12/08/19 [Rx] Past Medical History HEENT History: Reports: Impaired Vision, Other (See Below) Other HEENT History: wears glasses Respiratory History: Reports: COPD, Other (See Below) Other Respiratory History: lung cancer Gastrointestinal History: Reports: Hepatitis Other Gastrointestinal History: "cured for hepatitis C" Genitourinary History: Reports: None 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 Oncologic (Cancer) History: Reports: Liver, Lung, Metastatic Other Oncologic History: Last chemo-3 weeks ago-4 total treatments, next upcoming is the 2nd Dermatologic History: Reports: Other (See Below) Other Dermatologic History: dry skin - Infectious Disease History Infectious Disease History: Reports: Chicken Pox, Hepatitis C Other Infectious Disease History: had treatment and now is clear since November. - Past Surgical History HEENT Surgical History: Reports: Oral Surgery Other HEENT Surgeries/Procedures: upper dentures Respiratory Surgical History: Reports: None GI Surgical History: Reports: Appendectomy, Cholecystectomy Female Surgical History: Reports: Hysterectomy Neurological Surgical History: Reports: None Musculoskeletal Surgical History: Reports: None Social & Family History - Family History Family Medical History: Noncontributory Cardiac: Reports: CAD Oncologic: Reports: Breast - Caffeine Use Caffeine Use: Reports: Coffee, Soda Other Caffeine Use: 2 cups a day sometimes 3 - Living Situation & Occupation Living situation: Reports: , with Family (Daughter, her 2 kids, and her boyfriend) Occupation: Disabled ED ROS GENERAL - Review of Systems Review Of Systems: See Below Constitutional: Reports: Other (No fevers at this time) HEENT: Reports: No Symptoms Respiratory: Denies: Cough, Hemoptysis Cardiovascular: Reports: No Symptoms. Denies: Chest Pain GI/Abdominal: Reports: No Symptoms : Reports: No Symptoms Musculoskeletal: Reports: No Symptoms Skin: Reports: No Symptoms Neurological: Reports: Dizziness (Brought on by change of position) Psychiatric: Reports: No Symptoms ED EXAM, GENERAL - Physical Exam Exam: See Below Exam Limited By: No Limitations General Appearance: Alert, No Apparent Distress Eye Exam: Bilateral Eye: Normal Inspection, PERRL Ears: Normal External Exam, Normal Canal, Hearing Grossly Normal, Normal TMs Nose: Normal Inspection, Normal Mucosa, No Blood Throat/Mouth: Normal Inspection, Normal Lips, Normal Gums, Normal Oropharynx, Normal Voice, No Airway Compromise. No: Normal Teeth (Dentures on the upper poor dentition on the lower no acute issues seen) Head: Atraumatic, Normocephalic, Other (Tender no trauma) Neck: Normal Inspection, Supple, Non-Tender, Full Range of Motion. No: Limited Range of Motion, Lymphadenopathy (L), Lymphadenopathy (R), Tender Lateral, Tender Midline, Thyromegaly Respiratory/Chest: No Respiratory Distress, Lungs Clear, No Accessory Muscle Use , Chest Non-Tender, Decreased Breath Sounds (Decreased sounds in the right base otherwise normal breath sounds). No: Normal Breath Sounds Cardiovascular: Normal Peripheral Pulses, Regular Rate, Rhythm, No Edema GI/Abdominal: Normal Bowel Sounds, Soft, Non-Tender Back Exam: Normal Inspection. No: CVA Tenderness (L), CVA Tenderness (R) Extremities: Normal Inspection, No Pedal Edema Neurological: Alert, Oriented, Normal Cognition EKG INTERPRETATION EKG Date: 12/08/19 Rhythm: NSR Rate (Beats/Min): 69 [place]: Normal P-Wave: Present QRS: Normal ST-T: Other (Stable nonacute nondiagnostic changes inverted T waves V2 3) QT: Normal Comparison: Change From Previous EKG (Only the T wave changes in V2 V3) EKG Interpretation Comments: Inverted T's anterior leads otherwise normal looking EKG Course - Vital Signs Last Recorded V/S: Last Vital Signs Temp 36.4 C 12/08/19 08:52 Pulse 70 12/08/19 08:52 Resp 16 12/08/19 08:52 BP 93/77 12/08/19 08:52 Pulse Ox 99 12/08/19 08:52 - Orders/Labs/Meds Orders: Active Orders 24 hr Category Date Time Status Cardiac Monitoring [RC] . DIRECTED Care 12/08/19 09:09 Active EKG Documentation Completion [RC] STAT Care 12/08/19 09:09 Active Sodium Chloride 0.9% [Normal Saline] 1,000 ml Med 12/08/19 11:45 Active IV ASDIRECTED Medication Orders Sodium Chloride (Normal Saline) 1,000 mls @ 125 mls/hr IV ASDIRECTED IVONNE Last Admin: 12/08/19 11:40 Dose: 125 mls/hr Labs: Laboratory Tests 12/08/19 12/08/19 12/08/19 Range/Units 09:32 09:32 09:32 WBC 13.32 H (3.98-10.04) K/mm3 RBC 2.90 L (3.98-5.22) M/mm3 Hgb 7.8 L (11.2-15.7) gm/dl Hct 25.0 L (34.1-44.9) % MCV 86.2 (79.4-94.8) fl MCH 26.9 (25.6-32.2) pg MCHC 31.2 L (32.2-35.5) g/dl RDW Std Deviation 58.2 H (36.4-46.3) fL Plt Count 481 H (182-369) K/mm3 MPV 8.5 L (9.4-12.3) fl Neut % (Auto) 82.9 H (34.0-71.1) % Lymph % (Auto) 5.4 L (19.3-51.7) % [place] % (Auto) 10.8 (4.7-12.5) % Eos % (Auto) 0.5 L (0.7-5.8) Baso % (Auto) 0.1 (0.1-1.2) % Neut # (Auto) 11.04 H (1.56-6.13) K/mm3 Lymph # (Auto) 0.72 L (1.18-3.74) K/mm3 [place] # (Auto) 1.44 H (0.24-0.36) K/mm3 Eos # (Auto) 0.07 (0.04-0.36) K/mm3 Baso # (Auto) 0.01 (0.01-0.08) K/mm3 Manual Slide Review Abnormal smear Sodium 132 L (136-145) mEq/L Potassium 2.8 L (3.5-5.1) mEq/L Chloride 96 L (98-107) mEq/L Carbon Dioxide 26 (21-32) mEq/L Anion Gap 12.8 (5-15) BUN 14 (7-18) mg/dL Creatinine 0.8 (0.55-1.02) mg/dL Est Cr Clr Drug Dosing 58.14 mL/min Estimated GFR (MDRD) > 60 (>60) mL/min BUN/Creatinine Ratio 17.5 (14-18) Glucose 167 H (74-106) mg/dL Calcium 9.0 (8.5-10.1) mg/dL Magnesium 1.7 L (1.8-2.4) mg/dl Meds: Medications Generic Name Dose Route Start Last Admin Trade Name Freq PRN Reason Stop Dose Admin Sodium Chloride 1,000 mls @ 125 mls/hr 12/08/19 11:45 12/08/19 11:40 Normal Saline IV 125 mls/hr ASDIRECTED IVONNE Administration Discontinued Medications Generic Name Dose Route Start Last Admin Trade Name Rowan PRN Reason Stop Dose Admin Acetaminophen 650 mg 12/08/19 11:33 12/08/19 11:38 Tylenol PO 12/08/19 11:34 650 mg NOW ONE Administration Acetaminophen Confirm 12/08/19 11:34 12/08/19 11:51 Tylenol Administered 12/08/19 11:35 Not Given Dose 650 mg .ROUTE .STK-MED ONE Diphenhydramine HCl 50 mg 12/08/19 13:55 12/08/19 14:09 Benadryl IVPUSH 12/08/19 13:56 50 mg ONETIME ONE Administration Lactated Ringer's 1,000 mls @ 999 mls/hr 12/08/19 09:16 12/08/19 09:55 Ringers, Lactated IV 12/08/19 10:16 999 mls/hr .BOLUS ONE Administration Magnesium Sulfate 2 gm/ Premix 50 mls @ 25 mls/hr 12/08/19 10:26 12/08/19 11: 08 IV 12/08/19 12:25 25 mls/hr ONETIME ONE Administration Potassium Chloride 10 meq/ 100 mls @ 100 mls/hr 12/08/19 10:30 12/08/19 12:49 Premix IV 12/08/19 16:29 Infused Q1H IVONNE Infusion Potassium Chloride 10 meq/ 100 mls @ 100 mls/hr 12/08/19 12:45 12/08/19 14:45 Premix IV 12/08/19 14:44 100 mls/hr Q1H IVONNE Administration Potassium Chloride 40 meq 12/08/19 12:30 12/08/19 13:37 Klor-Con M20 PO 12/08/19 12:31 40 meq ONETIME ONE Administration - Re-Assessments/Exams Free Text/Narrative Re-Assessment/Exam: 12/08/19 09:44 Chest x-ray from 2 days ago showed no acute changes labs will be repeated to a lesser degree she will be started on some IV fluids as her blood pressure is little lower than normal and this seems to be positional. 12/08/19 13:11 Just got started on her second 10 mEq of IV potassium a while back we discussed observation for IV potassium replacement the patient really did not feel like spending the night in the hospital so we agreed to give her 40 mEq here in the emergency department as well as 40 p.o. And will discharge her on p.o. potassium her magnesium was a little low so we will give her 2 g of IV mag as well. 12/08/19 13:54 Patient is doing okay but she is getting headache we gave her some Tylenol a while back that did not seem to help we will give her some Benadryl. 12/08/19 15:45 Patient is doing better she is received a liter of fluids she is taking good p.o. intake she has had her potassium 40 mEq IV 40 mEq p.o. and 2 g of magnesium. Her headache is better and she would like to go home Departure - Departure Time of Disposition: 15:45 Disposition: Home, Self-Care 01 Clinical Impression: Dehydration, Hypokalemia - Discharge Information Prescriptions: Potassium Chloride [Klor-Con M20] 20 meq PO Q8H #6 tab.er Instructions: Hypokalemia, Dehydration, Adult Referrals: Ping Tamez MD [Primary Care Provider] - Forms: ED Department Discharge Additional Instructions: Return to the emergency room with any questions problems or worsening symptoms. Take the potassium 20 mEq 3 times a day for 2 days. 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 Follow-up with Dr. Tamez early this next week and have your potassium rechecked. Drink lots of fluids as we discussed. Sepsis Event Note - Focused Exam Vital Signs: Vital Signs Temp Pulse Resp BP Pulse Ox 12/08/19 08:52 36.4 C 70 16 93/77 99 Date Exam was Performed: 12/08/19 Time Exam was Performed: 15:52 - My Orders Last 24 Hours: My Active Orders 12/08/19 09:09 Cardiac Monitoring [RC] . DIRECTED EKG Documentation Completion [RC] STAT 12/08/19 11:45 Sodium Chloride 0.9% [Normal Saline] 1,000 ml IV ASDIRECTED - Assessment/Plan Last 24 Hours: My Active Orders 12/08/19 09:09 Cardiac Monitoring [RC] . DIRECTED EKG Documentation Completion [RC] STAT 12/08/19 11:45 Sodium Chloride 0.9% [Normal Saline] 1,000 ml IV ASDIRECTED
[2019-12-08] MEDS ORDERED: Lactated Ringers 1,000 ML IV ONE (09:16)
[2019-12-08] MEDS ORDERED: Magnesium Sulfate/Water 2 GM in Premix Bag 1 BAG IV ONE (10:26)
[2019-12-08] MEDS ORDERED: STERILE WATER IV SCH (10:30)
[2019-12-08] MEDS ORDERED: POTASSIUM CHLORIDE IV SCH (10:30)
[2019-12-08] MEDS: Potassium Chloride 10 MEQ in Premix Bag 1 BAG IV SCH ×5 (11:09→14:45)
[2019-12-08] MEDS ORDERED: Acetaminophen 325 MG Tab PO ONE (11:33)
[2019-12-08] MEDS ORDERED: Acetaminophen 325 MG Tab ONE (11:34)
[2019-12-08] MEDS ORDERED: Sodium Chloride 0.9% 1,000 ML IV SCH (11:45)
[2019-12-08] MEDS ORDERED: Potassium Chloride 20 MEQ Tab.ER PO ONE (12:30)
[2019-12-08] MEDS ORDERED: diphenhydrAMINE 50 MG/ML SDV IVPUSH ONE (13:55)
== END 2019-12-08 15:58 | disposition home or self-care (01) ==
LOC: JD.ED 08:37
DX: E87.6 Hypokalemia (principal); E86.0 Dehydration; J44.9 Chronic obstructive pulmonary disease, unspecified; R56.9 Unspecified convulsions; F41.9 Anxiety disorder, unspecified; F32.9 Major depressive disorder, single episode, unspecified; M41.9 Scoliosis, unspecified; Z79.899 Other long term (current) drug therapy; Z88.6 Allergy status to analgesic agent
CPT/HCPCS: 36415; 80048; 83735; 85025; 93005; 96361; 96365; 96366; 96368; 96375; 99284; A9270; J1200; J3475; J3480; J7030; J7120; 93010

== ENCOUNTER 2019-12-14 09:33 | Emergency (ER) | payer MEDICAID ==
--- NOTE | 2019-12-14 10:13 | EDM.PDOC ---
ED HPI GENERAL MEDICAL PROBLEM - General Chief Complaint: ENT Problem Stated Complaint: SORE THROAT Time Seen by Provider: 12/14/19 09:46 Source of Information: Reports: Patient History Limitations: Reports: No Limitations - History of Present Illness INITIAL COMMENTS - FREE TEXT/NARRATIVE: The patient presents with a sore throat. This started yesterday. She has a history of lung cancer and she had chemo on 12/11. She has no fever, chills, cough, congestion, runny nose, chest pain, shortness of breath, abdominal pain, nausea and vomiting. She says it takes her 2 tries to swallow. Things do go down but it hurts. Onset: Gradual Duration: Day(s): Location: Reports: Other (Throat) Quality: Reports: Sharp Severity: Moderate Improves with: Reports: None Worsens with: Reports: None Associated Symptoms: Reports: No Other Symptoms Throat Pain Score (Numeric/FACES): 6 - Related Data Allergies Allergy/AdvReac Type Severity Reaction Status Date / Time ketorolac [From Toradol] AdvReac Vomiting Verified 12/14/19 09:43 Home Meds: Home Meds traZODone HCl [Trazodone HCl] 150 mg PO BEDTIME 05/19/18 [History] Sertraline [Zoloft] 25 mg PO DAILY 08/14/19 [History] lamoTRIgine 150 mg PO BID 10/26/19 [History] Potassium Chloride [Klor-Con M20] 20 meq PO Q8H #6 tab.er 12/08/19 [Rx] Magnesium 250 mg PO DAILY 12/14/19 [History] Past Medical History HEENT History: Reports: Impaired Vision, Other (See Below) Other HEENT History: wears glasses Respiratory History: Reports: COPD, Other (See Below) Other Respiratory History: lung cancer Gastrointestinal History: Reports: Hepatitis Other Gastrointestinal History: "cured for hepatitis C" Genitourinary History: Reports: None LEAD ATHLETE History: Reports: Other LEAD ATHLETE History: partial hysterectomy, vaginal x 3 deliveries Musculoskeletal History: Reports: Osteoarthritis Other Musculoskeletal History: and scoliosis of the spine Neurological History: Reports: Migraines, Seizure Psychiatric History: Reports: Anxiety, Depression, Suicide Attempt Immunologic History: Reports: Other (See Below) Other Immunologic History: Hep C- cured? Oncologic (Cancer) History: Reports: Liver, Lung, Metastatic Other Oncologic History: Last chemo-3 weeks ago-4 total treatments, next upcoming is the 2nd Dermatologic History: Reports: Other (See Below) Other Dermatologic History: dry skin - Infectious Disease History Infectious Disease History: Reports: Chicken Pox, Hepatitis C Other Infectious Disease History: had treatment and now is clear since November. - Past Surgical History HEENT Surgical History: Reports: Oral Surgery Other HEENT Surgeries/Procedures: upper dentures Respiratory Surgical History: Reports: None GI Surgical History: Reports: Appendectomy, Cholecystectomy Female Surgical History: Reports: Hysterectomy Neurological Surgical History: Reports: None Musculoskeletal Surgical History: Reports: None Social & Family History - Family History Family Medical History: Noncontributory Cardiac: Reports: CAD Oncologic: Reports: Breast - Tobacco Use Smoking Status *Q: Former Smoker Used Tobacco, but Quit: Yes Month/Year Tobacco Last Used: august 2019 - Caffeine Use Caffeine Use: Reports: Coffee, Soda Other Caffeine Use: 2 cups a day sometimes 3 - Recreational Drug Use Recreational Drug Use: No - Living Situation & Occupation Living situation: Reports: , with Family (Daughter, her 2 kids, and her boyfriend) Occupation: Disabled ED ROS ENT - Review of Systems Review Of Systems: See Below Constitutional: Reports: No Symptoms HEENT: Reports: Throat Pain Respiratory: Reports: No Symptoms Cardiovascular: Reports: No Symptoms Endocrine: Reports: No Symptoms GI/Abdominal: Reports: No Symptoms : Reports: No Symptoms Musculoskeletal: Reports: No Symptoms ED EXAM, ENT - Physical Exam Exam: See Below Exam Limited By: No Limitations General Appearance: Alert, No Apparent Distress Ears: Normal External Exam Nose: Normal Inspection Mouth/Throat: Other (Mild erythema but no swelling) Head: Atraumatic, Normocephalic Neck: Normal Inspection, Supple, Non-Tender Respiratory/Chest: No Respiratory Distress, Lungs Clear, Normal Breath Sounds Cardiovascular: Regular Rate, Rhythm, No Edema, No Murmur GI/Abdominal: Soft, Non-Tender, No Organomegaly, No Mass Extremities: Normal Inspection Course - Vital Signs Last Recorded V/S: Last Vital Signs Temp 98.4 F 12/14/19 09:41 Pulse 76 12/14/19 09:41 Resp 18 12/14/19 09:41 BP 92/37 L 12/14/19 09:41 Pulse Ox 100 12/14/19 09:41 - Orders/Labs/Meds Orders: Active Orders 24 hr Category Date Time Status CULTURE STREP A CONFIRMATION [RM] Stat Lab 12/14/19 10:10 Results STREP SCRN A RAPID W CULT CONF [RM] Stat Lab 12/14/19 10:10 Results - Re-Assessments/Exams Free Text/Narrative Re-Assessment/Exam: 12/14/19 10:13 I ordered a rapid strep. 12/14/19 10:44 The strep is negative. I did not see any signs of thrush in her throat either. I will discharge her home. Departure - Departure Time of Disposition: 10:45 Disposition: Home, Self-Care 01 Condition: Good Clinical Impression: Sore throat - Discharge Information *PRESCRIPTION DRUG MONITORING PROGRAM REVIEWED*: Not Applicable *COPY OF PRESCRIPTION DRUG MONITORING REPORT IN PATIENT RUFINO: Not Applicable Referrals: Ping Tamez MD [Primary Care Provider] - 1 Week Forms: ED Department Discharge Additional Instructions: Take your medications as prescribed. Drink plenty of fluids. Drink some ice water and cool drinks. Please return if you are worse. Sepsis Event Note - Evaluation Sepsis Screening Result: No Definite Risk - Focused Exam Vital Signs: Vital Signs Temp Pulse Resp BP Pulse Ox 12/14/19 09:41 98.4 F 76 18 92/37 L 100 Date Exam was Performed: 12/14/19 Time Exam was Performed: 10:44 - My Orders Last 24 Hours: My Active Orders 12/14/19 10:10 CULTURE STREP A CONFIRMATION [RM] Stat STREP SCRN A RAPID W CULT CONF [RM] Stat - Assessment/Plan Last 24 Hours: My Active Orders 12/14/19 10:10 CULTURE STREP A CONFIRMATION [RM] Stat STREP SCRN A RAPID W CULT CONF [RM] Stat
== END 2019-12-14 10:58 | disposition home or self-care (01) ==
LOC: JD.ED 09:33
DX: J02.9 Acute pharyngitis, unspecified (principal); J44.9 Chronic obstructive pulmonary disease, unspecified; M41.9 Scoliosis, unspecified; R56.9 Unspecified convulsions; F32.9 Major depressive disorder, single episode, unspecified; F41.9 Anxiety disorder, unspecified; Z79.899 Other long term (current) drug therapy; Z88.6 Allergy status to analgesic agent; Z87.891 Personal history of nicotine dependence
CPT/HCPCS: 87081; 87430; 99282; 99283

== ENCOUNTER 2019-12-15 15:15 | Inpatient (IN) | payer MEDICAID ==
--- NOTE | 2019-12-15 15:34 | EDM.PDOC ---
ED HPI GENERAL MEDICAL PROBLEM - General Chief Complaint: Fever Stated Complaint: [facility] Time Seen by Provider: 12/15/19 15:29 - History of Present Illness INITIAL COMMENTS - FREE TEXT/NARRATIVE: 54-year-old female presents the emergency room with fever. It was well over 101 at home. Patient has lung cancer and is on palliative chemotherapy. Her last chemotherapy was on the . I saw her on the for frequent falls and she was seen here for a sore throat yesterday. This morning the patient was very chilled and then she noticed after she bundled up that her temperature was 101.4. Patient has some nausea. Otherwise does not have any significant pain she had a sore throat yesterday. This morning she did notice a mild cough. The patient is not positive but she thinks she finished Levaquin yesterday she does not recall who started it or what exactly it was for. Headache Pain Score (Numeric/FACES): 8 - Related Data Allergies Allergy/AdvReac Type Severity Reaction Status Date / Time ketorolac [From Toradol] AdvReac Vomiting Verified 12/15/19 15:19 Home Meds: Home Meds traZODone HCl [Trazodone HCl] 150 mg PO BEDTIME 05/19/18 [History] Sertraline [Zoloft] 25 mg PO DAILY 08/14/19 [History] lamoTRIgine 150 mg PO BID 10/26/19 [History] Potassium Chloride [Klor-Con M20] 20 meq PO Q8H #6 tab.er 12/08/19 [Rx] Magnesium 250 mg PO DAILY 12/14/19 [History] Past Medical History HEENT History: Reports: Impaired Vision, Other (See Below) Other HEENT History: wears glasses Respiratory History: Reports: COPD, Other (See Below) Other Respiratory History: lung cancer Gastrointestinal History: Reports: Hepatitis Other Gastrointestinal History: "cured for hepatitis C" Genitourinary History: Reports: None TRAFFIC CONTROL FLAGGER History: Reports: Other TRAFFIC CONTROL FLAGGER History: partial hysterectomy, vaginal x 3 deliveries Musculoskeletal History: Reports: Osteoarthritis Other Musculoskeletal History: and scoliosis of the spine Neurological History: Reports: Migraines, Seizure Psychiatric History: Reports: Anxiety, Depression, Suicide Attempt Immunologic History: Reports: Other (See Below) Other Immunologic History: Hep C- cured? Oncologic (Cancer) History: Reports: Liver, Lung, Metastatic Other Oncologic History: Last chemo-3 weeks ago-4 total treatments, next upcoming is the 2nd Dermatologic History: Reports: Other (See Below) Other Dermatologic History: dry skin - Infectious Disease History Infectious Disease History: Reports: Chicken Pox, Hepatitis C Other Infectious Disease History: had treatment and now is clear since November. - Past Surgical History HEENT Surgical History: Reports: Oral Surgery Other HEENT Surgeries/Procedures: upper dentures Respiratory Surgical History: Reports: None GI Surgical History: Reports: Appendectomy, Cholecystectomy Female Surgical History: Reports: Hysterectomy Neurological Surgical History: Reports: None Musculoskeletal Surgical History: Reports: None Social & Family History - Family History Family Medical History: Noncontributory Cardiac: Reports: CAD Oncologic: Reports: Breast - Tobacco Use Smoking Status *Q: Never Smoker - Caffeine Use Caffeine Use: Reports: Coffee, Soda Other Caffeine Use: 2 cups a day sometimes 3 - Recreational Drug Use Recreational Drug Use: No - Living Situation & Occupation Living situation: Reports: , with Family (Daughter, her 2 kids, and her boyfriend) Occupation: Disabled ED ROS GENERAL - Review of Systems Review Of Systems: See Below Constitutional: Reports: Fever, Chills HEENT: Reports: Throat Pain Respiratory: Reports: Cough. Denies: Shortness of Breath, Sputum, Hemoptysis Cardiovascular: Reports: No Symptoms, Palpitations GI/Abdominal: Reports: Nausea. Denies: Abdominal Pain, Constipation, Diarrhea, Vomiting : Reports: No Symptoms. Denies: Hematuria, Incontinence Musculoskeletal: Reports: No Symptoms Skin: Reports: No Symptoms Neurological: Reports: No Symptoms Hematologic/Lymphatic: Reports: No Symptoms Immunologic: Reports: No Symptoms ED EXAM, SEPSIS - Physical Exam Exam: See Below Exam Limited By: No Limitations General Appearance: Alert, No Apparent Distress Eye Exam: Bilateral Eye: Normal Inspection Ears: Normal External Exam Nose: Normal Inspection, Normal Mucosa, Nasal Drainage Throat/Mouth: Normal Inspection, Normal Lips, Normal Gums, Normal Oropharynx, Normal Voice, No Airway Compromise Head: Atraumatic, Normocephalic Neck: Normal Inspection, Supple, Non-Tender, Full Range of Motion. No: Lymphadenopathy (L), Lymphadenopathy (R) Respiratory/Chest: No Respiratory Distress, Lungs Clear, Normal Breath Sounds Cardiovascular: Regular Rate, Rhythm, No Edema, No Murmur GI/Abdominal Exam: Normal Bowel Sounds, Soft, Non-Tender. No: Guarding, Rigid, Rebound Back: Normal Inspection. No: CVA Tenderness (L), CVA Tenderness (R) Course - Vital Signs Last Recorded V/S: Last Vital Signs Temp 38.4 C H 12/15/19 15:16 Pulse 81 12/15/19 15:16 Resp 16 12/15/19 15:16 BP 126/62 12/15/19 15:16 Pulse Ox 96 12/15/19 15:16 - Orders/Labs/Meds Orders: Active Orders 24 hr Category Date Time Status CULTURE BLOOD [BC] Stat Lab 12/15/19 16:25 Received CULTURE BLOOD [BC] Stat Lab 12/15/19 16:34 Received PROCALCITONIN [REF] Stat Lab 12/15/19 16:20 Received Lactated Ringers [Ringers, Lactated] 1,000 ml Med 12/15/19 16:00 Active IV ASDIRECTED Sodium Chloride 0.9% [Saline Flush] Med 12/15/19 15:37 Active 10 ml FLUSH ASDIRECTED PRN Blood Culture x2 Reflex Set [OM.PC] Stat Oth 12/15/19 15:36 Ordered Blood Culture x2 Reflex Set [OM.PC] Stat Oth 12/15/19 15:37 Ordered Saline Lock Insert [OM.PC] Stat Oth 12/15/19 15:37 Ordered Severe Sepsis Onset Time [OM.PC] Stat Oth 12/15/19 15:37 Ordered Medication Orders Lactated Ringer's (Ringers, Lactated) 1,000 mls @ 125 mls/hr IV ASDIRECTED IVONNE Sodium Chloride (Saline Flush) 10 ml FLUSH ASDIRECTED PRN PRN Reason: Keep Vein Open Labs: Laboratory Tests 12/15/19 12/15/19 12/15/19 Range/Units 16:20 16:20 16:20 WBC 17.82 H (3.98-10.04) K/mm3 RBC 2.87 L (3.98-5.22) M/mm3 Hgb 7.8 L (11.2-15.7) gm/dl Hct 25.9 L (34.1-44.9) % MCV 90.2 D (79.4-94.8) fl MCH 27.2 (25.6-32.2) pg MCHC 30.1 L (32.2-35.5) g/dl RDW Std Deviation 69.5 H (36.4-46.3) fL Plt Count 581 H D (182-369) K/mm3 MPV 7.8 L (9.4-12.3) fl Neutrophils % (Manual) 84 H (40-60) % Band Neutrophils % 0 (0-10) % Lymphocytes % (Manual) 11 L (20-40) % Atypical Lymphs % 0 % Monocytes % (Manual) 4 (2-10) % Eosinophils % (Manual) 0 L (0.7-5.8) % Basophils % (Manual) 1 (0.1-1.2) Toxic Granulation 3+ marked Platelet Estimate Increased Plt Morphology Comment Normal Hypochromasia 2+ moderate Anisocytosis 2+ moderate RBC Morph Comment Not Reportable PT 11.2 (9.7-12.0) SECONDS INR 1.03 Sodium 130 L (136-145) mEq/L Potassium 3.7 (3.5-5.1) mEq/L Chloride 93 L (98-107) mEq/L Carbon Dioxide 27 (21-32) mEq/L Anion Gap 13.7 (5-15) BUN 13 (7-18) mg/dL Creatinine 0.8 (0.55-1.02) mg/dL Est Cr Clr Drug Dosing TNP Estimated GFR (MDRD) > 60 (>60) mL/min BUN/Creatinine Ratio 16.3 (14-18) Glucose 123 H (74-106) mg/dL Lactic Acid (0.4-2.0) mmol/L Calcium 8.9 (8.5-10.1) mg/dL Total Bilirubin 0.8 (0.2-1.0) mg/dL AST 21 (15-37) U/L ALT 13 L (14-59) U/L Alkaline Phosphatase 163 H (46-116) U/L C-Reactive Protein 20.3 H* (<1.0) mg/dL Total Protein 6.7 (6.4-8.2) g/dl Albumin 2.5 L (3.4-5.0) g/dl Globulin 4.2 gm/dL Albumin/Globulin Ratio 0.6 L (1-2) Amylase 35 (25-115) U/L Lipase 50 L (73-393) U/L Urine Color (Yellow) Urine Appearance (Clear) Urine pH (5.0-8.0) Ur Specific [place] (1.005-1.030) Urine Protein (Negative) Urine Glucose (UA) (Negative) Urine Ketones (Negative) Urine Occult Blood (Negative) Urine Nitrite (Negative) Urine Bilirubin (Negative) Urine Urobilinogen (0.2-1.0) Ur Leukocyte Esterase (Negative) Urine RBC (0-5) /hpf Urine WBC (0-5) /hpf Ur Squamous Epith Cells (0-5) /hpf Urine Bacteria (FEW) /hpf Urine Mucus (FEW) /hpf 12/15/19 12/15/19 Range/Units 16:20 16:35 WBC (3.98-10.04) K/mm3 RBC (3.98-5.22) M/mm3 Hgb (11.2-15.7) gm/dl Hct (34.1-44.9) % MCV (79.4-94.8) fl MCH (25.6-32.2) pg MCHC (32.2-35.5) g/dl RDW Std Deviation (36.4-46.3) fL Plt Count (182-369) K/mm3 MPV (9.4-12.3) fl Neutrophils % (Manual) (40-60) % Band Neutrophils % (0-10) % Lymphocytes % (Manual) (20-40) % Atypical Lymphs % % Monocytes % (Manual) (2-10) % Eosinophils % (Manual) (0.7-5.8) % Basophils % (Manual) (0.1-1.2) Toxic Granulation Platelet Estimate Plt Morphology Comment Hypochromasia Anisocytosis RBC Morph Comment PT (9.7-12.0) SECONDS INR Sodium (136-145) mEq/L Potassium (3.5-5.1) mEq/L Chloride (98-107) mEq/L Carbon Dioxide (21-32) mEq/L Anion Gap (5-15) BUN (7-18) mg/dL Creatinine (0.55-1.02) mg/dL Est Cr Clr Drug Dosing Estimated GFR (MDRD) (>60) mL/min BUN/Creatinine Ratio (14-18) Glucose (74-106) mg/dL Lactic Acid 1.1 (0.4-2.0) mmol/L Calcium (8.5-10.1) mg/dL Total Bilirubin (0.2-1.0) mg/dL AST (15-37) U/L ALT (14-59) U/L Alkaline Phosphatase (46-116) U/L C-Reactive Protein (<1.0) mg/dL Total Protein (6.4-8.2) g/dl Albumin (3.4-5.0) g/dl Globulin gm/dL Albumin/Globulin Ratio (1-2) Amylase (25-115) U/L Lipase (73-393) U/L Urine Color Yellow (Yellow) Urine Appearance Clear (Clear) Urine pH 7.5 (5.0-8.0) Ur Specific [place] 1.020 (1.005-1.030) Urine Protein Trace H (Negative) Urine Glucose (UA) Negative (Negative) Urine Ketones Negative (Negative) Urine Occult Blood Trace-lysed H (Negative) Urine Nitrite Negative (Negative) Urine Bilirubin Negative (Negative) Urine Urobilinogen 1.0 (0.2-1.0) Ur Leukocyte Esterase Negative (Negative) Urine RBC 5-10 H (0-5) /hpf Urine WBC 0-5 (0-5) /hpf Ur Squamous Epith Cells 0-5 (0-5) /hpf Urine Bacteria Not seen (FEW) /hpf Urine Mucus Not seen (FEW) /hpf Meds: Medications Generic Name Dose Route Start Last Admin Trade Name Freq PRN Reason Stop Dose Admin Lactated Ringer's 1,000 mls @ 125 mls/hr 12/15/19 16:00 Ringers, Lactated IV ASDIRECTED IVONNE Sodium Chloride 10 ml 12/15/19 15:37 Saline Flush FLUSH ASDIRECTED PRN Keep Vein Open Discontinued Medications Generic Name Dose Route Start Last Admin Trade Name Freq PRN Reason Stop Dose Admin Lactated Ringer's 1,000 mls @ 999 mls/hr 12/15/19 15:35 12/15/19 16:22 Ringers, Lactated IV 12/15/19 16:35 999 mls/hr .BOLUS ONE Administration Ondansetron HCl 4 mg 12/15/19 15:35 12/15/19 16:22 Zofran IVPUSH 12/15/19 15:36 4 mg ONETIME ONE Administration - Re-Assessments/Exams Free Text/Narrative Re-Assessment/Exam: 12/15/19 17:36 Case discussed with our hospitalist agrees the patient to be presented on my interpretation of the chest x-ray I am wondering about a left lower lobe infiltrate looking at this on initial exam I thought I heard some in the left base but could not reproduce it radiology thought this was a normal study so it is unclear to me exactly what is going on her white count 17,800 84 % segs no bandemia noted. She will be started on IV Zosyn and doxy. Departure - Departure Time of Disposition: 17:40 Disposition: Admitted As Inpatient 66 Clinical Impression: Pneumonia Qualifiers: Pneumonia type: due to unspecified organism Laterality: right Lung location: lower lobe of lung Qualified Code(s): J18.9 - Pneumonia, unspecified organism - Discharge Information Referrals: Ping Tamez MD [Primary Care Provider] - Forms: ED Department Discharge Sepsis Event Note - Evaluation Sepsis Screening Result: No Definite Risk - Focused Exam Vital Signs: Vital Signs Temp Pulse Resp BP Pulse Ox 12/15/19 15:16 38.4 C H 81 16 126/62 96 Date Exam was Performed: 12/15/19 Time Exam was Performed: 17:32 - My Orders Last 24 Hours: My Active Orders 12/15/19 15:36 Blood Culture x2 Reflex Set [OM.PC] Stat 12/15/19 15:37 Sodium Chloride 0.9% [Saline Flush] 10 ml FLUSH ASDIRECTED PRN Blood Culture x2 Reflex Set [OM.PC] Stat Saline Lock Insert [OM.PC] Stat Severe Sepsis Onset Time [OM.PC] Stat 12/15/19 16:00 Lactated Ringers [Ringers, Lactated] 1,000 ml IV ASDIRECTED 12/15/19 16:20 PROCALCITONIN [REF] Stat 12/15/19 16:25 CULTURE BLOOD [BC] Stat 12/15/19 16:34 CULTURE BLOOD [BC] Stat - Assessment/Plan Last 24 Hours: My Active Orders 12/15/19 15:36 Blood Culture x2 Reflex Set [OM.PC] Stat 12/15/19 15:37 Sodium Chloride 0.9% [Saline Flush] 10 ml FLUSH ASDIRECTED PRN Blood Culture x2 Reflex Set [OM.PC] Stat Saline Lock Insert [OM.PC] Stat Severe Sepsis Onset Time [OM.PC] Stat 12/15/19 16:00 Lactated Ringers [Ringers, Lactated] 1,000 ml IV ASDIRECTED 12/15/19 16:20 PROCALCITONIN [REF] Stat 12/15/19 16:25 CULTURE BLOOD [BC] Stat 12/15/19 16:34 CULTURE BLOOD [BC] Stat
[2019-12-15] MEDS ORDERED: Lactated Ringers 1,000 ML IV ONE (15:35)
[2019-12-15] MEDS ORDERED: Ondansetron 4 MG/2 ML SDV IVPUSH ONE (15:35)
[2019-12-15] MEDS ORDERED: Sodium Chloride 0.9% 10 ML Syringe FLUSH PRN (15:37)
[2019-12-15] MEDS ORDERED: Lactated Ringers 1,000 ML IV SCH (16:00)
--- NOTE | 2019-12-15 16:52 | CR ---
Chest: Frontal view of the chest was obtained. Comparison: Prior chest x-ray of 12/06/19. Stable right-sided lung mass is again noted. Right-sided infusion port is seen. Lungs show no acute parenchymal change. Diaphragms are flattened compatible with emphysematous change. Impression: 1. Findings as noted above. 2. Nothing acute is appreciated. Diagnostic code #3 This report was dictated in [facility]T
[2019-12-15] MEDS ORDERED: Piperacillin/Tazobactam 4.5 GM in Sodium Chloride 0.9% 100 ML IV ONE ×2 (17:35→18:56)
[2019-12-15] MEDS ORDERED: Doxycycline 100 MG in Sodium Chloride 0.9% 100 ML IV ONE (17:37)
[2019-12-15] MEDS ORDERED: Acetaminophen 325 MG Tab PO ONE (17:56)
[2019-12-15] MEDS ORDERED: Doxycycline 100 MG Vial ONE (17:58)
[2019-12-15] MEDS ORDERED: Albuterol 0.083% 2.5 MG/3 ML Neb Soln NEB PRN (18:40)
[2019-12-15] MEDS ORDERED: Acetaminophen 325 MG Tab PO PRN (18:40)
[2019-12-15] MEDS ORDERED: Ondansetron 4 MG/2 ML SDV IVPUSH PRN (18:40)
[2019-12-15] MEDS ORDERED: diphenhydrAMINE 50 MG/ML SDV IVPUSH PRN (18:40)
[2019-12-15] MEDS ORDERED: Acetaminophen 650 MG Supp RECTAL PRN (18:40)
[2019-12-15] MEDS ORDERED: Sodium Chloride 0.9% 1,000 ML IV ONE ×3 (18:40→23:25)
[2019-12-15] MEDS ORDERED: Ipratropium 0.02% 0.5 MG/2.5 ML Neb Soln NEB SCH (18:45)
[2019-12-15] MEDS ORDERED: Sodium Chloride 0.45% with KCl 1,000 ML IV SCH (18:45)
--- NOTE | 2019-12-15 19:03 | PCM.HP.2 ---
H&P History of Present Illness - General Date of Service: 12/15/19 Admit Problem/Dx: Admission Diagnosis/Problem Admission Diagnosis/Problem Fever - History of Present Illness Other HPI/Comments: Mrs. Collins is a pleasant 54-year-old female, with past medical history significant for depression, insomnia, stage IV cancer with metastases to the liver. Patient presented today in the ED for evaluation of fevers and shaking chills. Patient reported she was in her usual state of health, when yesterday she started having some sore throat. Reported coming to the ER for further evaluation. Patient was evaluated in the ER, strep was done to the patient fortunately came back negative. Patient was discharged from the ER but woke up this morning with what she describes as persistent nonproductive cough, chills. Eyes any obvious nausea or vomiting, no abdominal pain but noted that she was shaking at the same time developed some headache so decided to come to the ED for further evaluation. Evaluation in the ED, patient appears toxic, when talking oxygen saturation dropped to 89% per the patient he uses 1 L of oxygen just at night. Vital signs 71/47, that improved to 110/50 liter of NS, T-max 101.2. Labs that was done to the patient in the ED created sodium/ potassium 130/2.7, chloride 97 CO2 27 BUN/creatinine 13/0.8, random glucose 123 , WBC 17.8 with 50 left, H&H 17.8/25.9, platelets 581. Chest x-ray concerning for right lower lobe pneumonia, to confirm diagnosis will require CT scan of chest with IV contrast. Given this presentation, patient will be admitted with chief complaint sepsis secondary to right lobe pneumonia for further work-up and management. Headache Pain Score (Numeric/FACES): 8 - Related Data Allergies/Adverse Reactions: Allergies Allergy/AdvReac Type Severity Reaction Status Date / Time ketorolac [From Toradol] AdvReac Vomiting Verified 12/15/19 15:19 Home Medications: Home Meds traZODone HCl [Trazodone HCl] 150 mg PO BEDTIME 05/19/18 [History] Sertraline [Zoloft] 25 mg PO DAILY 08/14/19 [History] lamoTRIgine 150 mg PO BID 10/26/19 [History] Potassium Chloride [Klor-Con M20] 20 meq PO Q8H #6 tab.er 12/08/19 [Rx] Magnesium 250 mg PO DAILY 12/14/19 [History] Past Medical History HEENT History: Reports: Impaired Vision, Other (See Below) Other HEENT History: wears glasses Respiratory History: Reports: COPD, Other (See Below) Other Respiratory History: lung cancer Gastrointestinal History: Reports: Hepatitis Other Gastrointestinal History: "cured for hepatitis C" Genitourinary History: Reports: None COLON THERAPIST History: Reports: Other OB/BYN History: partial hysterectomy, vaginal x 3 deliveries Musculoskeletal History: Reports: Osteoarthritis Other Musculoskeletal History: and scoliosis of the spine Neurological History: Reports: Migraines, Seizure Psychiatric History: Reports: Anxiety, Depression, Suicide Attempt Immunologic History: Reports: Other (See Below) Other Immunologic History: Hep C- cured? Oncologic (Cancer) History: Reports: Liver, Lung, Metastatic Other Oncologic History: Last chemo-3 weeks ago-4 total treatments, next upcoming is the 2nd Dermatologic History: Reports: Other (See Below) Other Dermatologic History: dry skin - Infectious Disease History Infectious Disease History: Reports: Chicken Pox, Hepatitis C Other Infectious Disease History: had treatment and now is clear since November. - Past Surgical History HEENT Surgical History: Reports: Oral Surgery Other HEENT Surgeries/Procedures: upper dentures Respiratory Surgical History: Reports: None GI Surgical History: Reports: Appendectomy, Cholecystectomy Female Surgical History: Reports: Hysterectomy Neurological Surgical History: Reports: None Musculoskeletal Surgical History: Reports: None Social & Family History - Family History Family Medical History: Noncontributory Cardiac: Reports: CAD Oncologic: Reports: Breast - Tobacco Use Smoking Status *Q: Never Smoker - Caffeine Use Caffeine Use: Reports: Coffee, Soda Other Caffeine Use: 2 cups a day sometimes 3 - Recreational Drug Use Recreational Drug Use: No - Living Situation & Occupation Living situation: Reports: , with Family (Daughter, her 2 kids, and her boyfriend) Occupation: Disabled H&P Review of Systems - Review of Systems: Review Of Systems: See Below General: Reports: Fever, Chills, Malaise, Weakness, Fatigue HEENT: Reports: Sore Throat Pulmonary: Reports: Shortness of Breath, Cough Cardiovascular: Reports: No Symptoms Gastrointestinal: Reports: No Symptoms Genitourinary: Reports: No Symptoms Musculoskeletal: Reports: No Symptoms Skin: Reports: No Symptoms Psychiatric: Reports: No Symptoms Neurological: Reports: No Symptoms Hematologic/Lymphatic: Reports: No Symptoms Exam - Exam Exam: See Below - Vital Signs Vital Signs: Last Vital Signs Temp 102.4 F H 12/15/19 18:11 Pulse 81 12/15/19 15:16 Resp 16 12/15/19 15:16 BP 126/62 12/15/19 15:16 Pulse Ox 96 12/15/19 15:16 Weight: 101 lb - Exam Quality Assessment: Supplemental Oxygen General: Alert, Oriented, Cooperative, Mild Distress HEENT: Conjunctiva Clear, EACs Clear, Hearing Intact, Other (oral mucosa dry.) Neck: Supple, Trachea Midline Lungs: Clear to Auscultation, Normal Respiratory Effort, Decreased Breath Sounds (bilaterally) Cardiovascular: Regular Rate, Regular Rhythm, Normal S1, Normal S2 GI/Abdominal Exam: Normal Bowel Sounds, Soft, Non-Tender, No Organomegaly Back Exam: Normal Inspection, Full Range of Motion Extremities: Normal Inspection, Normal Range of Motion, Non-Tender, No Pedal Edema, Normal Capillary Refill Skin: Warm, Dry, Intact, Other (hot) Neurological: Cranial Nerves Intact, Reflexes Equal Bilateral Neuro Extensive - Mental Status: Alert, Oriented x3, Normal Mood/Affect, Normal Cognition, Memory Intact Psychiatric: Alert, Normal Affect, Normal Mood - Patient Data Lab Results Last 24 hrs: Laboratory Results - last 24 hr 12/15/19 12/15/19 12/15/19 Range/Units 16:20 16:20 16:20 WBC 17.82 H (3.98-10.04) K/mm3 RBC 2.87 L (3.98-5.22) M/mm3 Hgb 7.8 L (11.2-15.7) gm/dl Hct 25.9 L (34.1-44.9) % MCV 90.2 D (79.4-94.8) fl MCH 27.2 (25.6-32.2) pg MCHC 30.1 L (32.2-35.5) g/dl RDW Std Deviation 69.5 H (36.4-46.3) fL Plt Count 581 H D (182-369) K/mm3 MPV 7.8 L (9.4-12.3) fl Neutrophils % (Manual) 84 H (40-60) % Band Neutrophils % 0 (0-10) % Lymphocytes % (Manual) 11 L (20-40) % Atypical Lymphs % 0 % Monocytes % (Manual) 4 (2-10) % Eosinophils % (Manual) 0 L (0.7-5.8) % Basophils % (Manual) 1 (0.1-1.2) Toxic Granulation 3+ marked Platelet Estimate Increased Plt Morphology Comment Normal Hypochromasia 2+ moderate Anisocytosis 2+ moderate RBC Morph Comment Not Reportable PT 11.2 (9.7-12.0) SECONDS INR 1.03 Sodium 130 L (136-145) mEq/L Potassium 3.7 (3.5-5.1) mEq/L Chloride 93 L (98-107) mEq/L Carbon Dioxide 27 (21-32) mEq/L Anion Gap 13.7 (5-15) BUN 13 (7-18) mg/dL Creatinine 0.8 (0.55-1.02) mg/dL Est Cr Clr Drug Dosing TNP Estimated GFR (MDRD) > 60 (>60) mL/min BUN/Creatinine Ratio 16.3 (14-18) Glucose 123 H (74-106) mg/dL Lactic Acid (0.4-2.0) mmol/L Calcium 8.9 (8.5-10.1) mg/dL Total Bilirubin 0.8 (0.2-1.0) mg/dL AST 21 (15-37) U/L ALT 13 L (14-59) U/L Alkaline Phosphatase 163 H (46-116) U/L C-Reactive Protein 20.3 H* (<1.0) mg/dL Total Protein 6.7 (6.4-8.2) g/dl Albumin 2.5 L (3.4-5.0) g/dl Globulin 4.2 gm/dL Albumin/Globulin Ratio 0.6 L (1-2) Amylase 35 (25-115) U/L Lipase 50 L (73-393) U/L Urine Color (Yellow) Urine Appearance (Clear) Urine pH (5.0-8.0) Ur Specific [place] (1.005-1.030) Urine Protein (Negative) Urine Glucose (UA) (Negative) Urine Ketones (Negative) Urine Occult Blood (Negative) Urine Nitrite (Negative) Urine Bilirubin (Negative) Urine Urobilinogen (0.2-1.0) Ur Leukocyte Esterase (Negative) Urine RBC (0-5) /hpf Urine WBC (0-5) /hpf Ur Squamous Epith Cells (0-5) /hpf Urine Bacteria (FEW) /hpf Urine Mucus (FEW) /hpf 12/15/19 12/15/19 Range/Units 16:20 16:35 WBC (3.98-10.04) K/mm3 RBC (3.98-5.22) M/mm3 Hgb (11.2-15.7) gm/dl Hct (34.1-44.9) % MCV (79.4-94.8) fl MCH (25.6-32.2) pg MCHC (32.2-35.5) g/dl RDW Std Deviation (36.4-46.3) fL Plt Count (182-369) K/mm3 MPV (9.4-12.3) fl Neutrophils % (Manual) (40-60) % Band Neutrophils % (0-10) % Lymphocytes % (Manual) (20-40) % Atypical Lymphs % % Monocytes % (Manual) (2-10) % Eosinophils % (Manual) (0.7-5.8) % Basophils % (Manual) (0.1-1.2) Toxic Granulation Platelet Estimate Plt Morphology Comment Hypochromasia Anisocytosis RBC Morph Comment PT (9.7-12.0) SECONDS INR Sodium (136-145) mEq/L Potassium (3.5-5.1) mEq/L Chloride (98-107) mEq/L Carbon Dioxide (21-32) mEq/L Anion Gap (5-15) BUN (7-18) mg/dL Creatinine (0.55-1.02) mg/dL Est Cr Clr Drug Dosing Estimated GFR (MDRD) (>60) mL/min BUN/Creatinine Ratio (14-18) Glucose (74-106) mg/dL Lactic Acid 1.1 (0.4-2.0) mmol/L Calcium (8.5-10.1) mg/dL Total Bilirubin (0.2-1.0) mg/dL AST (15-37) U/L ALT (14-59) U/L Alkaline Phosphatase (46-116) U/L C-Reactive Protein (<1.0) mg/dL Total Protein (6.4-8.2) g/dl Albumin (3.4-5.0) g/dl Globulin gm/dL Albumin/Globulin Ratio (1-2) Amylase (25-115) U/L Lipase (73-393) U/L Urine Color Yellow (Yellow) Urine Appearance Clear (Clear) Urine pH 7.5 (5.0-8.0) Ur Specific [place] 1.020 (1.005-1.030) Urine Protein Trace H (Negative) Urine Glucose (UA) Negative (Negative) Urine Ketones Negative (Negative) Urine Occult Blood Trace-lysed H (Negative) Urine Nitrite Negative (Negative) Urine Bilirubin Negative (Negative) Urine Urobilinogen 1.0 (0.2-1.0) Ur Leukocyte Esterase Negative (Negative) Urine RBC 5-10 H (0-5) /hpf Urine WBC 0-5 (0-5) /hpf Ur Squamous Epith Cells 0-5 (0-5) /hpf Urine Bacteria Not seen (FEW) /hpf Urine Mucus Not seen (FEW) /hpf Result Diagrams: 12/15/19 16:20 12/15/19 16:20 Sepsis Event Note - Evaluation Sepsis Screening Result: No Definite Risk - Focused Exam Vital Signs: Vital Signs Temp Temp Pulse Resp BP Pulse Ox 12/15/19 18:11 102.4 F H 12/15/19 15:16 101.2 F H 81 16 126/62 96 Date Exam was Performed: 12/15/19 Time Exam was Performed: 18:58 Problem List Initiated/Reviewed/Updated: Yes Orders Last 24hrs: Active Orders 24 hr Category Date Time Status Admission Status [Patient Status] [ADT] Routine ADT 12/15/19 18:23 Active Patient Status [ADT] Routine ADT 12/15/19 18:41 Active Antiembolic Devices [RC] PER UNIT ROUTINE Care 12/15/19 18:43 Active Cardiac Monitoring [RC] CONTINUOUS Care 12/15/19 18:41 Active Communication Order [RC] ASDIRECTED Care 12/15/19 18:41 Active Communication Order [RC] ASDIRECTED Care 12/15/19 18:41 Active Communication Order [RC] PRN Care 12/15/19 18:41 Active EKG Documentation Completion [RC] AM Care 12/16/19 08:00 Active Enema [RC] Q2D Care 12/15/19 18:41 Active Head of Bed Elevation [RC] ASDIRECTED Care 12/15/19 18:41 Active Height and Weight [RC] DAILY Care 12/15/19 18:41 Active Notify Provider Vital Signs [RC] ASDIRECTED Care 12/15/19 18:41 Active Notify Provider [RC] ASDIRECTED Care 12/15/19 18:41 Active Notify Provider [RC] PRN Care 12/15/19 18:41 Active Oxygen Therapy [RC] ASDIRECTED Care 12/15/19 18:41 Active Up to Chair [RC] ASDIRECTED Care 12/15/19 18:41 Active Vital Signs [RC] PER UNIT ROUTINE Care 12/15/19 18:41 Active OT Evaluation and Treatment [CONS] Routine Cons 12/15/19 18:41 Active PT Evaluation and Treatment [CONS] Routine Cons 12/15/19 18:41 Active Soft Diet [DIET] Diet 12/15/19 Breakfast Active CBC WITH AUTO DIFF [HEME] AM Lab 12/16/19 05:11 Ordered COMPREHENSIVE METABOLIC PN,CMP [CHEM] AM Lab 12/16/19 05:11 Ordered CULTURE BLOOD [BC] Stat Lab 12/15/19 16:25 Received CULTURE BLOOD [BC] Stat Lab 12/15/19 16:34 Received CULTURE SPUTUM + SMEAR [RM] Routine Lab 12/15/19 18:49 Ordered CULTURE URINE [RM] Routine Lab 12/15/19 18:50 Ordered CULTURE URINE [RM] Stat Lab 12/15/19 18:17 Ordered INFLUENZA A+B AG SCREEN [RM] Routine Lab 12/15/19 18:49 Ordered PROCALCITONIN [REF] Stat Lab 12/15/19 16:20 Received TSH [CHEM] AM Lab 12/16/19 05:11 Ordered Acetaminophen [Tylenol] Med 12/15/19 18:40 Active 650 mg PO Q6H PRN Acetaminophen [Tylenol] Med 12/15/19 18:40 Active 650 mg RECTAL Q6H PRN Acetaminophen/HYDROcodone [[place] 325-5 MG] Med 12/15/19 18:40 Active 1 tab PO Q6H PRN Albuterol [Proventil Neb Soln] Med 12/15/19 18:40 Active 2.5 mg NEB Q2H PRN Aspirin [Halfprin] Med 12/16/19 09:00 Active 81 mg PO DAILY Docusate Sodium/Sennosides [Senna Plus] Med 12/15/19 21:00 Active 2 tab PO BID Doxycycline [Vibramycin] 100 mg Med 12/15/19 21:00 Active Sodium Chloride 0.9% [Normal Saline] 100 ml IV Q12HR Enoxaparin [Lovenox] Med 12/15/19 19:00 Active 30 mg SUBCUT DAILY Famotidine [Pepcid] Med 12/15/19 18:45 Active 20 mg PO Q12H Ipratropium [Atrovent] Med 12/15/19 18:45 Active 0.5 mg NEB Q8H Lactated Ringers [Ringers, Lactated] 1,000 ml Med 12/15/19 16:00 Active IV ASDIRECTED Metoprolol Succinate [Toprol XL] Med 12/15/19 21:00 Active 12.5 mg PO BID Morphine Med 12/15/19 18:40 Active 2 mg IVPUSH Q4H PRN Ondansetron [Zofran] Med 12/15/19 18:40 Active 4 mg IVPUSH Q4H PRN Piperacillin/Tazobactam [Piperacil-Tazobact] 4.5 gm Med 12/15/19 18:56 Active Sodium Chloride 0.9% [Normal Saline] 100 ml IV ONETIME Sertraline [Zoloft] Med 12/16/19 09:00 Active 25 mg PO DAILY Sodium Chloride 0.45% with KCl [1/2 NS with 20 mEq KCl] Med 12/15/19 18:45 Active 1,000 ml IV ASDIRECTED Sodium Chloride 0.9% [Normal Saline] 1,000 ml Med 12/15/19 18:40 Active IV ONETIME Sodium Chloride 0.9% [Saline Flush] Med 12/15/19 15:37 Active 10 ml FLUSH ASDIRECTED PRN Sucralfate [Carafate] Med 12/15/19 21:00 Active 2 gm PO BEDTIME diphenhydrAMINE [Benadryl] Med 12/15/19 18:40 Active 25 mg IVPUSH Q4H PRN lamoTRIgine Med 12/15/19 21:00 Active 150 mg PO BID polyethylene glycoL 3350 [MiraLAX] Med 12/16/19 09:00 Active 17 gm PO DAILY traZODone HCl [Trazodone HCl] Med 04/25/20 21:00 Active 150 mg PO BEDTIME Antiembolic Hose [OM.PC] Routine Oth 12/15/19 18:41 Ordered Blood Culture x2 Reflex Set [OM.PC] Stat Oth 12/15/19 15:36 Ordered Blood Culture x2 Reflex Set [OM.PC] Stat Oth 12/15/19 15:37 Ordered Saline Lock Insert [OM.PC] Stat Oth 12/15/19 15:37 Ordered Severe Sepsis Onset Time [OM.PC] Stat Ot 12/15/19 15:37 Ordered Resuscitation Status Routine Resus Stat 12/15/19 18:40 Ordered Medication Orders Acetaminophen (Tylenol) 650 mg PO Q6H PRN PRN Reason: Pain (Mild 1-3) or Fever Acetaminophen (Tylenol) 650 mg RECTAL Q6H PRN PRN Reason: Pain (Mild 1-3) or Fever Hydrocodone Bitart/Acetaminophen ([place] 325-5 Mg) 1 tab PO Q6H PRN PRN Reason: Pain (moderate 4-6) Albuterol (Proventil Neb Soln) 2.5 mg NEB Q2H PRN PRN Reason: Wheezing Aspirin (Halfprin) 81 mg PO DAILY IVONNE Diphenhydramine HCl (Benadryl) 25 mg IVPUSH Q4H PRN PRN Reason: Restlessness or Allergies Enoxaparin Sodium (Lovenox) 30 mg SUBCUT DAILY IVONNE Famotidine (Pepcid) 20 mg PO Q12H COUNT INCLUDES THE [facility] Lactated Ringer's (Ringers, Lactated) 1,000 mls @ 125 mls/hr IV ASDIRECTED COUNT INCLUDES THE [facility] Last Admin: 12/15/19 17:37 Dose: 125 mls/hr Sodium Chloride (Normal Saline) 1,000 mls @ 500 mls/hr IV ONETIME ONE Stop: 12/15/19 20:39 Potassium Chloride/Sodium Chloride (1/2 Ns With 20 Meq Kcl) 1,000 mls @ 126 mls /hr IV ASDIRECTED COUNT INCLUDES THE [facility] Doxycycline Hyclate 100 mg/ (Sodium Chloride) 100 mls @ 100 mls/hr IV Q12HR IVONNE Piperacillin Sod/Tazobactam (Sod 4.5 gm/ Sodium Chloride) 100 mls @ 200 mls/hr IV ONETIME ONE Stop: 12/15/19 19:25 Ipratropium [place] (Atrovent) 0.5 mg NEB Q8H IVONNE Lamotrigine (Lamotrigine) 150 mg PO BID COUNT INCLUDES THE [facility] Metoprolol Succinate (Toprol Xl) 12.5 mg PO BID COUNT INCLUDES THE [facility] Morphine Sulfate (Morphine) 2 mg IVPUSH Q4H PRN PRN Reason: Pain (severe 7-10) Non-Formulary Medication (Trazodone Hcl [Trazodone Hcl]) 150 mg PO BEDTIME IVONNE Ondansetron HCl (Zofran) 4 mg IVPUSH Q4H PRN PRN Reason: Nausea and Vomiting Polyethylene Glycol (Miralax) 17 gm PO DAILY IVONNE Senna/Docusate Sodium (Senna Plus) 2 tab PO BID IVONNE Sertraline HCl (Zoloft) 25 mg PO DAILY COUNT INCLUDES THE [facility] Sodium Chloride (Saline Flush) 10 ml FLUSH ASDIRECTED PRN PRN Reason: Keep Vein Open Sucralfate (Carafate) 2 gm PO BEDTIME IVONNE Assessment/Plan Comment:: Assessment and plan: Acute on chronic hypoxemic respiratory failure: The patient uses 1 L of oxygen at home, but on arrival in the ED, the patient when talking was noted with drop in oxygen saturation to 89, The patient will be admitted to telemetry. Will keep the patient on supplemental oxygen , Breathing treatments with DuoNeb every 6 hours and every 2 hours as needed. Sepsis secondary to pneumonia. . After initial 1 L of NS given in ER, BP stays reasonably stable, will give the patient additional 1l normal saline bolus. IVF will be continued as 1/2NS KCL 20 meq at rate 126 ml/hr, trying not to trigger fluid overload. Additional boluses and/or changes in IVF rate will be done based on further assessment Antibiotic choice based on the severity of clinical presentation to cover potentially nosocomial gram-negative or Staph carissa, and will be start Zosyn 3.375 gr IVPB q 6 hrs, and Doxycycline 100 mg IVPB q 12hrs. Will de-escalate antibiotics promptly after the patients status improves and if no obvious signs of aspiration. Will start Duoneb nebulizer treatments Q 8hr +Q 2 hrs prn wheezing. Will try to obtain sputum cultures. Awaiting the results of blood cultures taken in ER. . Moderate CV risk factors. Patient will be on metoprol 12.5 mg PO bid and aspirin 81 mg PO daily. Telemetry. Will do at least 2 sets of EKG and cardiac enzymes. Stage IV lung cancer with metastasis to the liver: Patient who last had chemotherapy on 12/12/2019, she is scheduled for additional rounds of chemotherapy. We will continue to monitor patient for signs of abnormalities. Hyponatremia: Patient's sodium 130, the patient will be on IV fluids as described above, continue to monitor and replace electrolytes. Chronic anemia: The patient's H&H 7.8/25.9. Will monitor patient's H&H closely I believe this is secondary to the patient's malignancy. Will check the patient 's iron studies. Calorie malnutrition: Patient appears cachectic, noted with decreased BMI. We will start the patient on Ensure 1 can 3 times daily with meals. Pain Control: Acetaminophen 650mg PO Q6H PRN mild pain or fever, HYDROcodone 5/ 325mg PO Q6H PRN moderate pain, and morphine sulfate 2mg IVP Q4H PRN chest pain or severe pain. Restlessness or Allergies: Benadryl 25mg IV Q4H PRN restlessness or allergy. Depression: will continue the patient's home dose of lamotrigine 150 mg p.o BID , and Zoloft 25mg p.o daily. Insomnia: will continue trazodone 150 mg p.o qhs. Nausea: In case of nausea use Zofran 4mg IVP Q4H PRN nausea. DVT Prophylaxis: Lovenox 30mg subQ Q24H (dose adjusted to renal function). We will keep monitoring H&H and platelet count. UGI Bleed Prophylaxis: Protonix 40mg PO QPM before dinner, Carafate 2 gram PO QHS, anti-reflux precautions, and Mylanta 30 mL q4h PRN indigestion. Constipation Prophylaxis: Senokot S 2 tabs PO BID, MiraLAX 17 grams PO at 1400 daily PRN no bowl movement, Fleet enema every other day if needed. CODE STATUS: Full Code Disposition: Anticipated hospital stay is longer than 2 midnights.
[2019-12-15] MEDS ORDERED: Albuterol/Ipratropium 3.0-0.5 MG/3 ML Neb Soln NEB PRN (19:19)
[2019-12-15] MEDS: Albuterol/Ipratropium 3.0-0.5 MG/3 ML Neb Soln NEB SCH (20:33)
[2019-12-15] MEDS ORDERED: Doxycycline 100 MG in Sodium Chloride 0.9% 100 ML IV SCH (21:00)
[2019-12-15] MEDS ORDERED: TRAZODONE HCL 150 MG PO SCH (21:00)
[2019-12-15] MEDS: Sucralfate 1 GM Tab PO SCH (21:58)
[2019-12-15] MEDS: Famotidine 20 MG Tab PO SCH (22:07)
[2019-12-15] MEDS: Acetaminophen/HYDROcodone 325-5 MG Tab PO PRN (22:08)
[2019-12-15] MEDS: Enoxaparin 30 MG/0.3 ML Syringe SUBCUT SCH (22:09)
[2019-12-15] MEDS: Sodium Chloride 0.45% with KCl 1,000 ML IV SCH (23:16)
[2019-12-15] MEDS: Metoprolol Succinate 25 MG Tab.ER PO SCH (23:29)
[2019-12-15] MEDS ORDERED: Sodium Chloride 0.9% 1,000 ML ONE (23:31)
[2019-12-16] MEDS: Albuterol/Ipratropium 3.0-0.5 MG/3 ML Neb Soln NEB SCH ×3 (05:32→21:08)
[2019-12-16] MEDS: Acetaminophen/HYDROcodone 325-5 MG Tab PO PRN ×3 (06:28→20:31)
[2019-12-16] MEDS: Famotidine 20 MG Tab PO SCH ×2 (06:28→20:29)
[2019-12-16] MEDS ORDERED: Piperacillin/Tazobactam 4.5 GM in Sodium Chloride 0.9% 100 ML IV ONE (07:51)
[2019-12-16] MEDS: Sodium Chloride 0.45% with KCl 1,000 ML IV SCH (08:37)
[2019-12-16] MEDS: Aspirin 81 MG Tab.EC PO SCH (08:41)
[2019-12-16] MEDS: Sertraline 25 MG Tab PO SCH (08:41)
[2019-12-16] MEDS: Enoxaparin 30 MG/0.3 ML Syringe SUBCUT SCH (08:47)
[2019-12-16] MEDS: Metoprolol Succinate 25 MG Tab.ER PO SCH ×2 (09:08→21:48)
[2019-12-16] MEDS: Doxycycline 100 MG in Sodium Chloride 0.9% 100 ML IV SCH ×2 (09:27→22:01)
[2019-12-16] MEDS ORDERED: Iopamidol 612 MG/ML 100 ML Bottle IVPUSH ONE (10:32)
[2019-12-16] MEDS ORDERED: Sodium Chloride 0.9% 10 ML Syringe FLUSH PRN (10:32)
[2019-12-16] MEDS: Polyethylene Glycol 3350 Powder 17 GM Packet PO SCH (11:04)
--- NOTE | 2019-12-16 11:49 | CT ---
CT chest Technique: Multiple axial sections were obtained from above the lung apices inferiorly through the lung bases. Intravenous contrast was utilized. Comparison: Prior CT chest exam of 08/24/19. Findings: Large irregular low density lesion noted within the right lobe of the liver. This measures around 8.1 cm in size. In similar measurement plane this measured about 6.8 cm on prior study and finding is felt to have increased in severity. 2nd lesion is seen more anteriorly within the right lobe of the liver which is not definitely appreciated on the prior exam and measures about 1.5 cm. Low density identified next of the ligamentum teres fissure most likely due to focal fat which is stable. Cysts are noted within the right kidney with lesser cysts also noted within the left kidney. Minimal pericardial effusion is seen which is an interval change from previous exam. Aorta shows no aneurysm. Right hilar lymph node is noted which has increased in size from previous study. This measures about 1.3 cm and measured about 8 mm on previous exam. Slightly enlarged carinal lymph node is also noted which in thickness measures 1.0 cm compared to 6 mm on prior exam. Several small pretracheal lymph nodes are seen which are believed to be stable. No axillary adenopathy is appreciated. Diffuse emphysematous changes are seen. Cavitary lesion is again noted within the right lung base increasing wall thickness is seen within this finding from prior exam. Increasing pulmonary nodularity is seen within the right lung compatible with mild increasing metastatic disease. Small left-sided nodule is seen in a subpleural location within the left base measuring 5 mm which is believed to be stable. 2nd lesion seen within the left base which is minimally more prominent when compared to previous exam. Bone window settings were reviewed which shows no acute osseous finding. Mild degenerative change is scattered within the thoracic spine. Impression: 1. Increasing size as well as increasing number of liver lesions from previous study most likely metastatic in etiology. 2. 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 3. Slight increasing nodularity as described above which is felt compatible with increasing metastatic nodules. Slight increasing mediastinal adenopathy is seen. 4. Severe emphysematous change which remains stable. 5. No pneumonia is identified. Diagnostic code #9 This report was dictated in MDT
--- NOTE | 2019-12-16 13:04 | PCM.PN ---
- General Info Date of Service: 12/16/19 - Review of Systems Systems Review Comment:: The patient was seen and examined by me, and discussed with Dr. Mead. At the time of my exam, the patient resting in bed. Still looks weak but states she feels somewhat better today compared to yesterday. Last night, patient's blood pressure still dropped requiring a total of 3 L of normal saline bolus since the time of admission. This morning patient looks pale but otherwise no reports of chest pain or palpitations no nausea no vomiting eating and drinking appropriately, nursing staff did not report any other acute concerns with the patient. - Patient Data Vitals - Most Recent: Last Vital Signs Temp 97.7 F 12/16/19 08:36 Pulse 81 12/16/19 08:36 Resp 19 12/16/19 08:36 BP 96/44 L 12/16/19 08:36 Pulse Ox 98 12/16/19 08:36 Weight - Most Recent: 103 lb I&O - Last 24 Hours: Intake & Output 12/15/19 12/16/19 12/16/19 22:59 06:59 14:59 Intake Total 3173 480 Output Total 1800 Balance 1373 480 Lab Results Last 24 Hours: Laboratory Results - last 24 hr 12/15/19 12/15/19 12/15/19 Range/Units 16:20 16:20 16:20 WBC 17.82 H (3.98-10.04) K/mm3 RBC 2.87 L (3.98-5.22) M/mm3 Hgb 7.8 L (11.2-15.7) gm/dl Hct 25.9 L (34.1-44.9) % MCV 90.2 D (79.4-94.8) fl MCH 27.2 (25.6-32.2) pg MCHC 30.1 L (32.2-35.5) g/dl RDW Std Deviation 69.5 H (36.4-46.3) fL Plt Count 581 H D (182-369) K/mm3 MPV 7.8 L (9.4-12.3) fl Neut % (Auto) (34.0-71.1) % Lymph % (Auto) (19.3-51.7) % [place] % (Auto) (4.7-12.5) % Eos % (Auto) (0.7-5.8) Baso % (Auto) (0.1-1.2) % Neut # (Auto) (1.56-6.13) K/mm3 Lymph # (Auto) (1.18-3.74) K/mm3 [place] # (Auto) (0.24-0.36) K/mm3 Eos # (Auto) (0.04-0.36) K/mm3 Baso # (Auto) (0.01-0.08) K/mm3 Neutrophils % (Manual) 84 H (40-60) % Band Neutrophils % 0 (0-10) % Lymphocytes % (Manual) 11 L (20-40) % Atypical Lymphs % 0 % Monocytes % (Manual) 4 (2-10) % Eosinophils % (Manual) 0 L (0.7-5.8) % Basophils % (Manual) 1 (0.1-1.2) Manual Slide Review Toxic Granulation 3+ marked Platelet Estimate Increased Plt Morphology Comment Normal Hypochromasia 2+ moderate Anisocytosis 2+ moderate RBC Morph Comment Not Reportable PT 11.2 (9.7-12.0) SECONDS INR 1.03 Sodium 130 L (136-145) mEq/L Potassium 3.7 (3.5-5.1) mEq/L Chloride 93 L (98-107) mEq/L Carbon Dioxide 27 (21-32) mEq/L Anion Gap 13.7 (5-15) BUN 13 (7-18) mg/dL Creatinine 0.8 (0.55-1.02) mg/dL Est Cr Clr Drug Dosing TNP Estimated GFR (MDRD) > 60 (>60) mL/min BUN/Creatinine Ratio 16.3 (14-18) Glucose 123 H (74-106) mg/dL Lactic Acid (0.4-2.0) mmol/L Calcium 8.9 (8.5-10.1) mg/dL Iron (50-170) ug/dL TIBC (100-400) ug/dL % Saturation (20-55) % Transferrin (202-364) mg/dL Total Bilirubin 0.8 (0.2-1.0) mg/dL AST 21 (15-37) U/L ALT 13 L (14-59) U/L Alkaline Phosphatase 163 H (46-116) U/L C-Reactive Protein 20.3 H* (<1.0) mg/dL Total Protein 6.7 (6.4-8.2) g/dl Albumin 2.5 L (3.4-5.0) g/dl Globulin 4.2 gm/dL Albumin/Globulin Ratio 0.6 L (1-2) Amylase 35 (25-115) U/L Lipase 50 L (73-393) U/L Procalcitonin (<0.10) ng/mL TSH 3rd Generation (0.358-3.74) uIU/mL Urine Color (Yellow) Urine Appearance (Clear) Urine pH (5.0-8.0) Ur Specific [place] (1.005-1.030) Urine Protein (Negative) Urine Glucose (UA) (Negative) Urine Ketones (Negative) Urine Occult Blood (Negative) Urine Nitrite (Negative) Urine Bilirubin (Negative) Urine Urobilinogen (0.2-1.0) Ur Leukocyte Esterase (Negative) Urine RBC (0-5) /hpf Urine WBC (0-5) /hpf Ur Squamous Epith Cells (0-5) /hpf Urine Bacteria (FEW) /hpf Urine Mucus (FEW) /hpf Blood Type Gel Antibody Screen 12/15/19 12/15/19 12/15/19 Range/Units 16:20 16:20 16:35 WBC (3.98-10.04) K/mm3 RBC (3.98-5.22) M/mm3 Hgb (11.2-15.7) gm/dl Hct (34.1-44.9) % MCV (79.4-94.8) fl MCH (25.6-32.2) pg MCHC (32.2-35.5) g/dl RDW Std Deviation (36.4-46.3) fL Plt Count (182-369) K/mm3 MPV (9.4-12.3) fl Neut % (Auto) (34.0-71.1) % Lymph % (Auto) (19.3-51.7) % [place] % (Auto) (4.7-12.5) % Eos % (Auto) (0.7-5.8) Baso % (Auto) (0.1-1.2) % Neut # (Auto) (1.56-6.13) K/mm3 Lymph # (Auto) (1.18-3.74) K/mm3 [place] # (Auto) (0.24-0.36) K/mm3 Eos # (Auto) (0.04-0.36) K/mm3 Baso # (Auto) (0.01-0.08) K/mm3 Neutrophils % (Manual) (40-60) % Band Neutrophils % (0-10) % Lymphocytes % (Manual) (20-40) % Atypical Lymphs % % Monocytes % (Manual) (2-10) % Eosinophils % (Manual) (0.7-5.8) % Basophils % (Manual) (0.1-1.2) Manual Slide Review Toxic Granulation Platelet Estimate Plt Morphology Comment Hypochromasia Anisocytosis RBC Morph Comment PT (9.7-12.0) SECONDS INR Sodium (136-145) mEq/L Potassium (3.5-5.1) mEq/L Chloride (98-107) mEq/L Carbon Dioxide (21-32) mEq/L Anion Gap (5-15) BUN (7-18) mg/dL Creatinine (0.55-1.02) mg/dL Est Cr Clr Drug Dosing Estimated GFR (MDRD) (>60) mL/min BUN/Creatinine Ratio (14-18) Glucose (74-106) mg/dL Lactic Acid 1.1 (0.4-2.0) mmol/L Calcium (8.5-10.1) mg/dL Iron (50-170) ug/dL TIBC (100-400) ug/dL % Saturation (20-55) % Transferrin (202-364) mg/dL Total Bilirubin (0.2-1.0) mg/dL AST (15-37) U/L ALT (14-59) U/L Alkaline Phosphatase (46-116) U/L C-Reactive Protein (<1.0) mg/dL Total Protein (6.4-8.2) g/dl Albumin (3.4-5.0) g/dl Globulin gm/dL Albumin/Globulin Ratio (1-2) Amylase (25-115) U/L Lipase (73-393) U/L Procalcitonin 0.21 H (<0.10) ng/mL TSH 3rd Generation (0.358-3.74) uIU/mL Urine Color Yellow (Yellow) Urine Appearance Clear (Clear) Urine pH 7.5 (5.0-8.0) Ur Specific [place] 1.020 (1.005-1.030) Urine Protein Trace H (Negative) Urine Glucose (UA) Negative (Negative) Urine Ketones Negative (Negative) Urine Occult Blood Trace-lysed H (Negative) Urine Nitrite Negative (Negative) Urine Bilirubin Negative (Negative) Urine Urobilinogen 1.0 (0.2-1.0) Ur Leukocyte Esterase Negative (Negative) Urine RBC 5-10 H (0-5) /hpf Urine WBC 0-5 (0-5) /hpf Ur Squamous Epith Cells 0-5 (0-5) /hpf Urine Bacteria Not seen (FEW) /hpf Urine Mucus Not seen (FEW) /hpf Blood Type Gel Antibody Screen 12/16/19 12/16/19 12/16/19 Range/Units 05:20 05:20 05:20 WBC 14.95 H (3.98-10.04) K/mm3 RBC 2.56 L (3.98-5.22) M/mm3 Hgb 6.8 L* (11.2-15.7) gm/dl Hct 23.1 L (34.1-44.9) % MCV 90.2 (79.4-94.8) fl MCH 26.6 (25.6-32.2) pg MCHC 29.4 L (32.2-35.5) g/dl RDW Std Deviation 68.6 H (36.4-46.3) fL Plt Count 491 H D (182-369) K/mm3 MPV 8.1 L (9.4-12.3) fl Neut % (Auto) 83.4 H (34.0-71.1) % Lymph % (Auto) 6.3 L (19.3-51.7) % [place] % (Auto) 9.6 (4.7-12.5) % Eos % (Auto) 0.3 L (0.7-5.8) Baso % (Auto) 0.1 (0.1-1.2) % Neut # (Auto) 12.48 H (1.56-6.13) K/mm3 Lymph # (Auto) 0.94 L (1.18-3.74) K/mm3 [place] # (Auto) 1.43 H (0.24-0.36) K/mm3 Eos # (Auto) 0.04 (0.04-0.36) K/mm3 Baso # (Auto) 0.01 (0.01-0.08) K/mm3 Neutrophils % (Manual) (40-60) % Band Neutrophils % (0-10) % Lymphocytes % (Manual) (20-40) % Atypical Lymphs % % Monocytes % (Manual) (2-10) % Eosinophils % (Manual) (0.7-5.8) % Basophils % (Manual) (0.1-1.2) Manual Slide Review Abnormal smear Toxic Granulation Platelet Estimate Plt Morphology Comment Hypochromasia Anisocytosis RBC Morph Comment PT (9.7-12.0) SECONDS INR Sodium 137 (136-145) mEq/L Potassium 3.8 (3.5-5.1) mEq/L Chloride 102 (98-107) mEq/L Carbon Dioxide 26 (21-32) mEq/L Anion Gap 12.8 (5-15) BUN 11 (7-18) mg/dL Creatinine 0.7 (0.55-1.02) mg/dL Est Cr Clr Drug Dosing 67.76 Estimated GFR (MDRD) > 60 (>60) mL/min BUN/Creatinine Ratio 15.7 (14-18) Glucose 98 (74-106) mg/dL Lactic Acid (0.4-2.0) mmol/L Calcium 8.0 L (8.5-10.1) mg/dL Iron 22 L (50-170) ug/dL TIBC 196 (100-400) ug/dL % Saturation 11 L (20-55) % Transferrin 157 L (202-364) mg/dL Total Bilirubin 0.6 (0.2-1.0) mg/dL AST 18 (15-37) U/L ALT 11 L (14-59) U/L Alkaline Phosphatase 133 H (46-116) U/L C-Reactive Protein (<1.0) mg/dL Total Protein 5.5 L (6.4-8.2) g/dl Albumin 2.0 L (3.4-5.0) g/dl Globulin 3.5 gm/dL Albumin/Globulin Ratio 0.6 L (1-2) Amylase (25-115) U/L Lipase (73-393) U/L Procalcitonin (<0.10) ng/mL TSH 3rd Generation 0.745 (0.358-3.74) uIU/mL Urine Color (Yellow) Urine Appearance (Clear) Urine pH (5.0-8.0) Ur Specific [place] (1.005-1.030) Urine Protein (Negative) Urine Glucose (UA) (Negative) Urine Ketones (Negative) Urine Occult Blood (Negative) Urine Nitrite (Negative) Urine Bilirubin (Negative) Urine Urobilinogen (0.2-1.0) Ur Leukocyte Esterase (Negative) Urine RBC (0-5) /hpf Urine WBC (0-5) /hpf Ur Squamous Epith Cells (0-5) /hpf Urine Bacteria (FEW) /hpf Urine Mucus (FEW) /hpf Blood Type Gel Antibody Screen 12/16/19 Range/Units 05:20 WBC (3.98-10.04) K/mm3 RBC (3.98-5.22) M/mm3 Hgb (11.2-15.7) gm/dl Hct (34.1-44.9) % MCV (79.4-94.8) fl MCH (25.6-32.2) pg MCHC (32.2-35.5) g/dl RDW Std Deviation (36.4-46.3) fL Plt Count (182-369) K/mm3 MPV (9.4-12.3) fl Neut % (Auto) (34.0-71.1) % Lymph % (Auto) (19.3-51.7) % [place] % (Auto) (4.7-12.5) % Eos % (Auto) (0.7-5.8) Baso % (Auto) (0.1-1.2) % Neut # (Auto) (1.56-6.13) K/mm3 Lymph # (Auto) (1.18-3.74) K/mm3 [place] # (Auto) (0.24-0.36) K/mm3 Eos # (Auto) (0.04-0.36) K/mm3 Baso # (Auto) (0.01-0.08) K/mm3 Neutrophils % (Manual) (40-60) % Band Neutrophils % (0-10) % Lymphocytes % (Manual) (20-40) % Atypical Lymphs % % Monocytes % (Manual) (2-10) % Eosinophils % (Manual) (0.7-5.8) % Basophils % (Manual) (0.1-1.2) Manual Slide Review Toxic Granulation Platelet Estimate Plt Morphology Comment Hypochromasia Anisocytosis RBC Morph Comment PT (9.7-12.0) SECONDS INR Sodium (136-145) mEq/L Potassium (3.5-5.1) mEq/L Chloride (98-107) mEq/L Carbon Dioxide (21-32) mEq/L Anion Gap (5-15) BUN (7-18) mg/dL Creatinine (0.55-1.02) mg/dL Est Cr Clr Drug Dosing Estimated GFR (MDRD) (>60) mL/min BUN/Creatinine Ratio (14-18) Glucose (74-106) mg/dL Lactic Acid (0.4-2.0) mmol/L Calcium (8.5-10.1) mg/dL Iron (50-170) ug/dL TIBC (100-400) ug/dL % Saturation (20-55) % Transferrin (202-364) mg/dL Total Bilirubin (0.2-1.0) mg/dL AST (15-37) U/L ALT (14-59) U/L Alkaline Phosphatase (46-116) U/L C-Reactive Protein (<1.0) mg/dL Total Protein (6.4-8.2) g/dl Albumin (3.4-5.0) g/dl Globulin gm/dL Albumin/Globulin Ratio (1-2) Amylase (25-115) U/L Lipase (73-393) U/L Procalcitonin (<0.10) ng/mL TSH 3rd Generation (0.358-3.74) uIU/mL Urine Color (Yellow) Urine Appearance (Clear) Urine pH (5.0-8.0) Ur Specific [place] (1.005-1.030) Urine Protein (Negative) Urine Glucose (UA) (Negative) Urine Ketones (Negative) Urine Occult Blood (Negative) Urine Nitrite (Negative) Urine Bilirubin (Negative) Urine Urobilinogen (0.2-1.0) Ur Leukocyte Esterase (Negative) Urine RBC (0-5) /hpf Urine WBC (0-5) /hpf Ur Squamous Epith Cells (0-5) /hpf Urine Bacteria (FEW) /hpf Urine Mucus (FEW) /hpf Blood Type O POSITIVE Gel Antibody Screen Negative Pb Results Last 24 Hours: Microbiology 12/15/19 23:25 Influenza Type A Antigen Screen - Final Nasopharyngeal Swab NEGATIVE INFLUENZA A VIRUS AG REFERENCE RANGE: NEGATIVE Influenza Type B Antigen Screen - Final NEGATIVE INFLUENZA B VIRUS AG REFERENCE RANGE: NEGATIVE Med Orders - Current: Current Medications Acetaminophen (Tylenol) 650 mg PO Q6H PRN PRN Reason: Pain (Mild 1-3) or Fever Last Admin: 12/16/19 03:30 Dose: 650 mg Acetaminophen (Tylenol) 650 mg RECTAL Q6H PRN PRN Reason: Pain (Mild 1-3) or Fever Hydrocodone Bitart/Acetaminophen ([place] 325-5 Mg) 1 tab PO Q6H PRN PRN Reason: Pain (moderate 4-6) Last Admin: 12/16/19 06:28 Dose: 1 tab Albuterol/Ipratropium (Duoneb 3.0-0.5 Mg/3 Ml) 3 ml NEB Q8HRRT [facility] Last Admin: 12/16/19 05:32 Dose: 3 ml Albuterol/Ipratropium (Duoneb 3.0-0.5 Mg/3 Ml) 3 ml NEB Q2H PRN PRN Reason: Shortness of Breath Aspirin (Halfprin) 81 mg PO DAILY [facility] Last Admin: 12/16/19 08:41 Dose: 81 mg Diphenhydramine HCl (Benadryl) 25 mg IVPUSH Q4H PRN PRN Reason: Restlessness or Allergies Enoxaparin Sodium (Lovenox) 30 mg SUBCUT DAILY [facility] Last Admin: 12/16/19 08:47 Dose: 30 mg Famotidine (Pepcid) 20 mg PO Q12H [facility] Last Admin: 12/16/19 06:28 Dose: 20 mg Doxycycline Hyclate 100 mg/ (Sodium Chloride) 100 mls @ 100 mls/hr IV Q12HR [facility] Last Admin: 12/16/19 09:27 Dose: 100 mls/hr Potassium Chloride/Sodium Chloride (1/2 Ns With 20 Meq Kcl) 1,000 mls @ 75 mls/ hr IV ASDIRECTED [facility] Last Admin: 12/16/19 08:37 Dose: 126 mls/hr Piperacillin Sod/Tazobactam (Sod 4.5 gm/ Sodium Chloride) 100 mls @ 25 mls/hr IV Q8H [facility] Lamotrigine (Lamotrigine) 150 mg PO BID [facility] Last Admin: 12/16/19 08:41 Dose: 150 mg Metoprolol Succinate (Toprol Xl) 12.5 mg PO BID [facility] Last Admin: 12/16/19 09:08 Dose: Not Given Morphine Sulfate (Morphine) 2 mg IVPUSH Q4H PRN PRN Reason: Pain (severe 7-10) Ondansetron HCl (Zofran) 4 mg IVPUSH Q4H PRN PRN Reason: Nausea and Vomiting Polyethylene Glycol (Miralax) 17 gm PO DAILY [facility] Last Admin: 12/16/19 11:04 Dose: Not Given Senna/Docusate Sodium (Senna Plus) 2 tab PO BID [facility] Last Admin: 12/16/19 09:09 Dose: Not Given Sertraline HCl (Zoloft) 25 mg PO DAILY [facility] Last Admin: 12/16/19 08:41 Dose: 25 mg Sodium Chloride (Saline Flush) 10 ml FLUSH ASDIRECTED PRN PRN Reason: Keep Vein Open Sodium Chloride (Saline Flush) 10 ml FLUSH ONETIME PRN PRN Reason: IV Flush Last Admin: 12/16/19 10:35 Dose: 10 ml Sucralfate (Carafate) 2 gm PO BEDTIME [facility] Last Admin: 12/15/19 21:58 Dose: 2 gm Trazodone HCl (Trazodone) 150 mg PO BEDTIME [facility] Discontinued Medications Acetaminophen (Tylenol) 975 mg PO NOW ONE Stop: 12/15/19 17:57 Last Admin: 12/15/19 18:11 Dose: 975 mg Albuterol (Proventil Neb Soln) 2.5 mg NEB Q2H PRN PRN Reason: Wheezing Doxycycline Hyclate (Vibramycin) Confirm Administered Dose 100 mg .ROUTE .STK- MED ONE Stop: 12/15/19 17:59 Last Admin: 12/15/19 23:10 Dose: Not Given Lactated Ringer's (Ringers, Lactated) 1,000 mls @ 999 mls/hr IV .BOLUS ONE Stop: 12/15/19 16:35 Last Admin: 12/15/19 16:22 Dose: 999 mls/hr Lactated Ringer's (Ringers, Lactated) 1,000 mls @ 125 mls/hr IV ASDIRECTED [facility] Last Admin: 12/15/19 17:37 Dose: 125 mls/hr Piperacillin Sod/Tazobactam (Sod 4.5 gm/ Sodium Chloride) 100 mls @ 200 mls/hr IV ONETIME ONE Stop: 12/15/19 18:04 Last Admin: 12/15/19 17:53 Dose: 200 mls/hr Doxycycline Hyclate 100 mg/ (Sodium Chloride) 100 mls @ 100 mls/hr IV ONETIME ONE Stop: 12/15/19 18:36 Last Admin: 12/15/19 18:28 Dose: 100 mls/hr Sodium Chloride (Normal Saline) 1,000 mls @ 999 mls/hr IV ONETIME ONE Stop: 12/15/19 19:40 Last Admin: 12/15/19 23:10 Dose: Not Given Potassium Chloride/Sodium Chloride (1/2 Ns With 20 Meq Kcl) 1,000 mls @ 126 mls /hr IV ASDIRECTED [facility] Doxycycline Hyclate 100 mg/ (Sodium Chloride) 100 mls @ 100 mls/hr IV Q12HR [facility] Last Admin: 12/15/19 21:17 Dose: Not Given Piperacillin Sod/Tazobactam (Sod 4.5 gm/ Sodium Chloride) 100 mls @ 200 mls/hr IV ONETIME ONE Stop: 12/15/19 19:25 Last Admin: 12/15/19 23:11 Dose: Not Given Sodium Chloride (Normal Saline) 1,000 mls @ 999 mls/hr IV ONETIME ONE Stop: 12/15/19 21:52 Last Admin: 12/15/19 21:58 Dose: 999 mls/hr Sodium Chloride (Normal Saline) 1,000 mls @ 999 mls/hr IV ONETIME ONE Stop: 12/16/19 00:25 Last Admin: 12/15/19 23:35 Dose: 999 mls/hr Sodium Chloride (Normal Saline) Confirm Administered Dose 1,000 mls @ as directed .ROUTE .STK-MED ONE Stop: 12/15/19 23:32 Last Admin: 12/15/19 23:35 Dose: Not Given Piperacillin Sod/Tazobactam (Sod 4.5 gm/ Sodium Chloride) 100 mls @ 200 mls/hr IV ONETIME ONE Stop: 12/16/19 08:20 Last Admin: 12/16/19 08:46 Dose: 200 mls/hr Iopamidol (Isovue-300 (61%)) 84 ml IVPUSH ONETIME ONE Stop: 12/16/19 10:33 Last Admin: 12/16/19 10:35 Dose: 84 ml Ipratropium [place] (Atrovent) 0.5 mg NEB Q8H [facility] Last Admin: 12/15/19 20:47 Dose: Not Given Non-Formulary Medication (Trazodone Hcl [Trazodone Hcl]) 150 mg PO BEDTIME [facility] Last Admin: 12/15/19 22:04 Dose: 150 mg Ondansetron HCl (Zofran) 4 mg IVPUSH ONETIME ONE Stop: 12/15/19 15:36 Last Admin: 12/15/19 16:22 Dose: 4 mg - Exam General: Alert, Oriented, Cooperative, No Acute Distress, Other (Patient looks pale) HEENT: Pupils Equal, Pupils Reactive, Mucous Membr. Moist/[place] Neck: Supple, Trachea Midline, No Thyromegaly Lungs: Clear to Auscultation, Normal Respiratory Effort Cardiovascular: Regular Rate, Regular Rhythm Extremities: Normal Inspection, Normal Range of Motion, Non-Tender, No Pedal Edema, Normal Capillary Refill Skin: Warm, Intact Neurological: No New Focal Deficit Psy/Mental Status: Alert, Normal Affect, Normal Mood Sepsis Event Note - Evaluation Sepsis Screening Result: No Definite Risk - Focused Exam Vital Signs: Vital Signs Temp Pulse Resp BP Pulse Ox Pulse Ox 12/16/19 08:36 97.7 F 81 19 96/44 L 98 12/16/19 05:33 94 L 12/16/19 05:01 97.9 F 83 18 111/85 96 12/16/19 03:05 97.3 F 74 18 108/50 L 98 Date Exam was Performed: 12/16/19 Time Exam was Performed: 12:58 - Problem List Review Problem List Initiated/Reviewed/Updated: Yes - My Orders Last 24 Hours: My Active Orders 12/15/19 18:40 Acetaminophen [Tylenol] 650 mg PO Q6H PRN Acetaminophen [Tylenol] 650 mg RECTAL Q6H PRN Acetaminophen/HYDROcodone [[place] 325-5 MG] 1 tab PO Q6H PRN Morphine 2 mg IVPUSH Q4H PRN Ondansetron [Zofran] 4 mg IVPUSH Q4H PRN diphenhydrAMINE [Benadryl] 25 mg IVPUSH Q4H PRN Resuscitation Status Routine 12/15/19 18:41 Patient Status [ADT] Routine Cardiac Monitoring [RC] CONTINUOUS Communication Order [RC] BID Enema [RC] Q2D Head of Bed Elevation [RC] BID Height and Weight [RC] 04 Notify Provider Vital Signs [RC] BID Notify Provider [RC] BID Oxygen Therapy [RC] ASDIRECTED Up to Chair [RC] 09,15 Vital Signs [RC] Q4HR OT Evaluation and Treatment [CONS] Routine PT Evaluation and Treatment [CONS] Routine Antiembolic Hose [OM.PC] Routine 12/15/19 18:43 Antiembolic Devices [RC] BID 12/15/19 18:45 Famotidine [Pepcid] 20 mg PO Q12H 12/15/19 19:00 Enoxaparin [Lovenox] 30 mg SUBCUT DAILY 12/15/19 19:18 RT Aerosol Therapy [RC] ASDIRECTED 12/15/19 19:19 Albuterol/Ipratropium [DuoNeb 3.0-0.5 MG/3 ML] 3 ml NEB Q2H PRN 12/15/19 21:00 Albuterol/Ipratropium [DuoNeb 3.0-0.5 MG/3 ML] 3 ml NEB Q8HRRT Docusate Sodium/Sennosides [Senna Plus] 2 tab PO BID Metoprolol Succinate [Toprol XL] 12.5 mg PO BID Sucralfate [Carafate] 2 gm PO BEDTIME lamoTRIgine 150 mg PO BID 12/15/19 21:24 traZODone 150 mg PO BEDTIME 12/15/19 23:15 Sodium Chloride 0.45% with KCl [1/2 NS with 20 mEq KCl] 1,000 ml IV ASDIRECTED 12/16/19 07:46 Transfuse PRBC [Transfuse Red Blood Cells] [COMM] Routine 12/16/19 08:33 PATIENT RETYPE [BBK] Routine 12/16/19 09:00 Aspirin [Halfprin] 81 mg PO DAILY Doxycycline [Vibramycin] 100 mg Sodium Chloride 0.9% [Normal Saline] 100 ml IV Q12HR Sertraline [Zoloft] 25 mg PO DAILY polyethylene glycoL 3350 [MiraLAX] 17 gm PO DAILY 12/16/19 17:00 Piperacillin/Tazobactam [Piperacil-Tazobact] 4.5 gm Sodium Chloride 0.9% [ Normal Saline] 100 ml IV Q8H 12/17/19 05:11 CBC WITH AUTO DIFF [HEME] AM CMP [COMPREHENSIVE METABOLIC PN,CMP] [CHEM] Routine MAGNESIUM (PHARM SOLN) [CHEM] DAILY - Plan Plan:: Assessment and plan: Acute on chronic hypoxemic respiratory failure: S/p resolved. At time of my exam today, patient was satting above 90 on room air. Will continue supplemental oxygen as needed. Continue to monitor patient for signs of respiratory distress. Sepsis secondary to pneumonia: Overnight, patient had a low-grade temperature. But blood pressure drop was given additional 2 L of normal saline bolus. Making a total of 3. At time of my exam, the patient looks weak but blood pressures improved.patient looks pale. We will continue the patient on IV hydration with decrease from 125 to 75 mL/h. Plan will be to further decrease IV fluids once patient starts transfusion for PRBC. In the meantime, continue broad-spectrum antibiotics with Zosyn and doxycycline. Continue to follow-up on blood , sputum cultures report of CT chest scan. Chemotherapy-induced anemia today, the patient's H&H 6.8/23.1. Patient looks pale slightly hypotensive. Plan will be to type and screen, transfuse 1 unit of PRBC, continue to monitor patient's blood closely. Moderate CV risk factors. Patient will be on metoprol 12.5 mg PO bid and aspirin 81 mg PO daily. Telemetry. Will do at least 2 sets of EKG and cardiac enzymes. Stage IV lung cancer with metastasis to the liver: Patient who last had chemotherapy on 12/12/2019, she is scheduled for additional rounds of chemotherapy. We will continue to monitor patient for signs of abnormalities. Hyponatremia: This was resolved. Today the patient's sodium level 137. We will continue to monitor patient's electrolytes. Calorie malnutrition: Patient appears cachectic, noted with decreased BMI. We will start the patient on Ensure 1 can 3 times daily with meals. Pain Control: Acetaminophen 650mg PO Q6H PRN mild pain or fever, HYDROcodone 5/ 325mg PO Q6H PRN moderate pain, and morphine sulfate 2mg IVP Q4H PRN chest pain or severe pain. Restlessness or Allergies: Benadryl 25mg IV Q4H PRN restlessness or allergy. Depression: will continue the patient's home dose of lamotrigine 150 mg p.o BID , and Zoloft 25mg p.o daily. Insomnia: will continue trazodone 150 mg p.o qhs. Nausea: In case of nausea use Zofran 4mg IVP Q4H PRN nausea. DVT Prophylaxis: Lovenox 30mg subQ Q24H (dose adjusted to renal function). We will keep monitoring H&H and platelet count. UGI Bleed Prophylaxis: Protonix 40mg PO QPM before dinner, Carafate 2 gram PO QHS, anti-reflux precautions, and Mylanta 30 mL q4h PRN indigestion. Constipation Prophylaxis: Senokot S 2 tabs PO BID, MiraLAX 17 grams PO at 1400 daily PRN no bowl movement, Fleet enema every other day if needed. CODE STATUS: Full Code Disposition: Anticipated hospital stay is longer than 2 midnights.
[2019-12-16] MEDS ORDERED: Sodium Chloride 0.9% 500 ML IV SCH (14:15)
[2019-12-16] MEDS: Piperacillin/Tazobactam 4.5 GM in Sodium Chloride 0.9% 100 ML IV SCH (20:32)
[2019-12-16] MEDS: Sucralfate 1 GM Tab PO SCH (21:23)
[2019-12-16] MEDS: traZODone 50 MG Tab PO SCH (21:49)
[2019-12-17] MEDS: Piperacillin/Tazobactam 4.5 GM in Sodium Chloride 0.9% 100 ML IV SCH ×4 (02:19→21:16)
[2019-12-17] MEDS: Acetaminophen/HYDROcodone 325-5 MG Tab PO PRN ×4 (03:01→23:08)
[2019-12-17] MEDS: Sodium Chloride 0.45% with KCl 1,000 ML IV SCH ×3 (03:04→16:17)
[2019-12-17] MEDS: Albuterol/Ipratropium 3.0-0.5 MG/3 ML Neb Soln NEB SCH ×3 (05:50→20:41)
[2019-12-17] MEDS: Famotidine 20 MG Tab PO SCH ×2 (06:16→18:12)
[2019-12-17] MEDS: Enoxaparin 30 MG/0.3 ML Syringe SUBCUT SCH (08:11)
[2019-12-17] MEDS: Aspirin 81 MG Tab.EC PO SCH (08:11)
[2019-12-17] MEDS: Polyethylene Glycol 3350 Powder 17 GM Packet PO SCH (08:12)
[2019-12-17] MEDS: Metoprolol Succinate 25 MG Tab.ER PO SCH ×2 (08:14→20:06)
[2019-12-17] MEDS: Sertraline 25 MG Tab PO SCH (08:16)
--- NOTE | 2019-12-17 08:39 | PCM.PN ---
- General Info Date of Service: 12/17/19 Admission Dx/Problem (Free Text): Admission Diagnosis/Problem Admission Diagnosis/Problem Fever Functional Status: Reports: Pain Controlled, Tolerating Diet, Ambulating, Urinating. Denies: New Symptoms - Review of Systems General: Reports: Weakness (improving ). Denies: Fever, Fatigue, Malaise, Chills HEENT: Reports: No Symptoms. Denies: Headaches, Sore Throat Pulmonary: Reports: Shortness of Breath (chronic ), Pleuritic Chest Pain ( chronic ), Cough (improved to resolved ). Denies: Sputum, Wheezing Cardiovascular: Reports: Dyspnea on Exertion (chronic ). Denies: Palpitations Gastrointestinal: Reports: No Symptoms. Denies: Abdominal Pain, Constipation, Diarrhea, Nausea, Vomiting Genitourinary: Reports: No Symptoms. Denies: Pain Musculoskeletal: Reports: Back Pain (chronic ) Skin: Reports: No Symptoms. Denies: Cyanosis Neurological: Denies: Confusion, Difficulty Walking, Gait Disturbance Psychiatric: Reports: No Symptoms - Patient Data Vitals - Most Recent: Last Vital Signs Temp 97.5 F 12/17/19 07:25 Pulse 81 12/17/19 08:14 Resp 20 12/17/19 07:25 BP 112/90 12/17/19 08:14 Pulse Ox 97 12/17/19 07:25 Weight - Most Recent: 104 lb 4.8 oz I&O - Last 24 Hours: Intake & Output 12/16/19 12/17/19 12/17/19 22:59 06:59 14:59 Intake Total 3550 2000 Output Total 2900 2500 Balance 650 -500 Lab Results Last 24 Hours: Laboratory Results - last 24 hr 12/15/19 12/16/19 12/16/19 Range/Units 16:20 05:20 14:01 WBC (3.98-10.04) K/mm3 RBC (3.98-5.22) M/mm3 Hgb (11.2-15.7) gm/dl Hct (34.1-44.9) % MCV (79.4-94.8) fl MCH (25.6-32.2) pg MCHC (32.2-35.5) g/dl RDW Std Deviation (36.4-46.3) fL Plt Count (182-369) K/mm3 MPV (9.4-12.3) fl Neut % (Auto) (34.0-71.1) % Lymph % (Auto) (19.3-51.7) % [place] % (Auto) (4.7-12.5) % Eos % (Auto) (0.7-5.8) Baso % (Auto) (0.1-1.2) % Neut # (Auto) (1.56-6.13) K/mm3 Lymph # (Auto) (1.18-3.74) K/mm3 [place] # (Auto) (0.24-0.36) K/mm3 Eos # (Auto) (0.04-0.36) K/mm3 Baso # (Auto) (0.01-0.08) K/mm3 Manual Slide Review Sodium (136-145) mEq/L Potassium (3.5-5.1) mEq/L Chloride (98-107) mEq/L Carbon Dioxide (21-32) mEq/L Anion Gap (5-15) BUN (7-18) mg/dL Creatinine (0.55-1.02) mg/dL Est Cr Clr Drug Dosing mL/min Estimated GFR (MDRD) (>60) mL/min BUN/Creatinine Ratio (14-18) Glucose (74-106) mg/dL Calcium (8.5-10.1) mg/dL Total Bilirubin (0.2-1.0) mg/dL AST (15-37) U/L ALT (14-59) U/L Alkaline Phosphatase (46-116) U/L Total Protein (6.4-8.2) g/dl Albumin (3.4-5.0) g/dl Globulin gm/dL Albumin/Globulin Ratio (1-2) Procalcitonin 0.21 H (<0.10) ng/mL Blood Type O POSITIVE Gel Antibody Screen Negative Crossmatch See Detail See Detail 12/17/19 12/17/19 Range/Units 06:20 06:20 WBC 12.62 H (3.98-10.04) K/mm3 RBC 2.99 L (3.98-5.22) M/mm3 Hgb 8.1 L (11.2-15.7) gm/dl Hct 26.4 L (34.1-44.9) % MCV 88.3 (79.4-94.8) fl MCH 27.1 (25.6-32.2) pg MCHC 30.7 L (32.2-35.5) g/dl RDW Std Deviation 64.1 H (36.4-46.3) fL Plt Count 490 H (182-369) K/mm3 MPV 8.1 L (9.4-12.3) fl Neut % (Auto) 77.5 H (34.0-71.1) % Lymph % (Auto) 8.6 L (19.3-51.7) % [place] % (Auto) 13.2 H (4.7-12.5) % Eos % (Auto) 0.3 L (0.7-5.8) Baso % (Auto) 0.1 (0.1-1.2) % Neut # (Auto) 9.79 H (1.56-6.13) K/mm3 Lymph # (Auto) 1.08 L (1.18-3.74) K/mm3 [place] # (Auto) 1.66 H (0.24-0.36) K/mm3 Eos # (Auto) 0.04 (0.04-0.36) K/mm3 Baso # (Auto) 0.01 (0.01-0.08) K/mm3 Manual Slide Review Abnormal smear Sodium 133 L (136-145) mEq/L Potassium 4.4 (3.5-5.1) mEq/L Chloride 98 (98-107) mEq/L Carbon Dioxide 26 (21-32) mEq/L Anion Gap 13.4 (5-15) BUN 8 (7-18) mg/dL Creatinine 0.7 (0.55-1.02) mg/dL Est Cr Clr Drug Dosing 68.62 mL/min Estimated GFR (MDRD) > 60 (>60) mL/min BUN/Creatinine Ratio 11.4 L (14-18) Glucose 104 (74-106) mg/dL Calcium 8.5 (8.5-10.1) mg/dL Total Bilirubin 0.8 (0.2-1.0) mg/dL AST 10 L (15-37) U/L ALT 12 L (14-59) U/L Alkaline Phosphatase 138 H (46-116) U/L Total Protein 6.2 L (6.4-8.2) g/dl Albumin 2.2 L (3.4-5.0) g/dl Globulin 4.0 gm/dL Albumin/Globulin Ratio 0.6 L (1-2) Procalcitonin (<0.10) ng/mL Blood Type Gel Antibody Screen Crossmatch Pb Results Last 24 Hours: Microbiology 12/15/19 16:34 Aerobic Blood Culture - Preliminary Blood - Venous - Lab Draw NO GROWTH AFTER 1 DAY Anaerobic Blood Culture - Preliminary NO GROWTH AFTER 1 DAY 12/15/19 16:25 Aerobic Blood Culture - Preliminary Blood - Venous NO GROWTH AFTER 1 DAY Anaerobic Blood Culture - Preliminary NO GROWTH AFTER 1 DAY Med Orders - Current: Current Medications Acetaminophen (Tylenol) 650 mg PO Q6H PRN PRN Reason: Pain (Mild 1-3) or Fever Last Admin: 12/16/19 03:30 Dose: 650 mg Acetaminophen (Tylenol) 650 mg RECTAL Q6H PRN PRN Reason: Pain (Mild 1-3) or Fever Hydrocodone Bitart/Acetaminophen ([place] 325-5 Mg) 1 tab PO Q6H PRN PRN Reason: Pain (moderate 4-6) Last Admin: 12/17/19 03:01 Dose: 1 tab Albuterol/Ipratropium (Duoneb 3.0-0.5 Mg/3 Ml) 3 ml NEB Q8HRRT [facility] [place] Last Admin: 12/17/19 05:50 Dose: 3 ml Albuterol/Ipratropium (Duoneb 3.0-0.5 Mg/3 Ml) 3 ml NEB Q2H PRN PRN Reason: Shortness of Breath Aspirin (Halfprin) 81 mg PO DAILY [facility] [place] Last Admin: 12/17/19 08:11 Dose: 81 mg Diphenhydramine HCl (Benadryl) 25 mg IVPUSH Q4H PRN PRN Reason: Restlessness or Allergies Enoxaparin Sodium (Lovenox) 30 mg SUBCUT DAILY [facility] [place] Last Admin: 12/17/19 08:11 Dose: 30 mg Famotidine (Pepcid) 20 mg PO Q12H [facility] [place] Last Admin: 12/17/19 06:16 Dose: 20 mg Doxycycline Hyclate 100 mg/ (Sodium Chloride) 100 mls @ 100 mls/hr IV Q12HR [facility] [place] Last Admin: 12/16/19 22:01 Dose: 100 mls/hr Potassium Chloride/Sodium Chloride (1/2 Ns With 20 Meq Kcl) 1,000 mls @ 75 mls/ hr IV ASDIRECTED [facility] [place] Last Admin: 12/17/19 08:09 Dose: 126 mls/hr Piperacillin Sod/Tazobactam (Sod 4.5 gm/ Sodium Chloride) 100 mls @ 25 mls/hr IV Q8H [facility] [place] Last Admin: 12/17/19 06:17 Dose: 25 mls/hr Lamotrigine (Lamotrigine) 150 mg PO BID [facility] [place] Last Admin: 12/17/19 08:12 Dose: 150 mg Metoprolol Succinate (Toprol Xl) 12.5 mg PO BID [facility] [place] Last Admin: 12/17/19 08:14 Dose: 12.5 mg Morphine Sulfate (Morphine) 2 mg IVPUSH Q4H PRN PRN Reason: Pain (severe 7-10) Ondansetron HCl (Zofran) 4 mg IVPUSH Q4H PRN PRN Reason: Nausea and Vomiting Polyethylene Glycol (Miralax) 17 gm PO DAILY [facility] [place] Last Admin: 12/17/19 08:12 Dose: Not Given Senna/Docusate Sodium (Senna Plus) 2 tab PO BID [facility] [place] Last Admin: 12/17/19 08:11 Dose: 2 tab Sertraline HCl (Zoloft) 25 mg PO DAILY [facility] [place] Last Admin: 12/17/19 08:16 Dose: 25 mg Sodium Chloride (Saline Flush) 10 ml FLUSH ONETIME PRN PRN Reason: IV Flush Last Admin: 12/16/19 10:35 Dose: 10 ml Sucralfate (Carafate) 2 gm PO BEDTIME [facility] [place] Last Admin: 12/16/19 21:23 Dose: Not Given Trazodone HCl (Trazodone) 150 mg PO BEDTIME [facility] [place] Last Admin: 12/16/19 21:49 Dose: 150 mg Discontinued Medications Acetaminophen (Tylenol) 975 mg PO NOW ONE Stop: 12/15/19 17:57 Last Admin: 12/15/19 18:11 Dose: 975 mg Albuterol (Proventil Neb Soln) 2.5 mg NEB Q2H PRN PRN Reason: Wheezing Doxycycline Hyclate (Vibramycin) Confirm Administered Dose 100 mg .ROUTE .STK- MED ONE Stop: 12/15/19 17:59 Last Admin: 12/15/19 23:10 Dose: Not Given Lactated Ringer's (Ringers, Lactated) 1,000 mls @ 999 mls/hr IV .BOLUS ONE Stop: 12/15/19 16:35 Last Admin: 12/15/19 16:22 Dose: 999 mls/hr Lactated Ringer's (Ringers, Lactated) 1,000 mls @ 125 mls/hr IV ASDIRECTED [facility] [place] Last Admin: 12/15/19 17:37 Dose: 125 mls/hr Piperacillin Sod/Tazobactam (Sod 4.5 gm/ Sodium Chloride) 100 mls @ 200 mls/hr IV ONETIME ONE Stop: 12/15/19 18:04 Last Admin: 12/15/19 17:53 Dose: 200 mls/hr Doxycycline Hyclate 100 mg/ (Sodium Chloride) 100 mls @ 100 mls/hr IV ONETIME ONE Stop: 12/15/19 18:36 Last Admin: 12/15/19 18:28 Dose: 100 mls/hr Sodium Chloride (Normal Saline) 1,000 mls @ 999 mls/hr IV ONETIME ONE Stop: 12/15/19 19:40 Last Admin: 12/15/19 23:10 Dose: Not Given Potassium Chloride/Sodium Chloride (1/2 Ns With 20 Meq Kcl) 1,000 mls @ 126 mls /hr IV ASDIRECTED [facility] [place] Doxycycline Hyclate 100 mg/ (Sodium Chloride) 100 mls @ 100 mls/hr IV Q12HR [facility] [place] Last Admin: 12/15/19 21:17 Dose: Not Given Piperacillin Sod/Tazobactam (Sod 4.5 gm/ Sodium Chloride) 100 mls @ 200 mls/hr IV ONETIME ONE Stop: 12/15/19 19:25 Last Admin: 12/15/19 23:11 Dose: Not Given Sodium Chloride (Normal Saline) 1,000 mls @ 999 mls/hr IV ONETIME ONE Stop: 12/15/19 21:52 Last Admin: 12/15/19 21:58 Dose: 999 mls/hr Sodium Chloride (Normal Saline) 1,000 mls @ 999 mls/hr IV ONETIME ONE Stop: 12/16/19 00:25 Last Admin: 12/15/19 23:35 Dose: 999 mls/hr Sodium Chloride (Normal Saline) Confirm Administered Dose 1,000 mls @ as directed .ROUTE .STK-MED ONE Stop: 12/15/19 23:32 Last Admin: 12/15/19 23:35 Dose: Not Given Piperacillin Sod/Tazobactam (Sod 4.5 gm/ Sodium Chloride) 100 mls @ 200 mls/hr IV ONETIME ONE Stop: 12/16/19 08:20 Last Admin: 12/16/19 08:46 Dose: 200 mls/hr Piperacillin Sod/Tazobactam (Sod 4.5 gm/ Sodium Chloride) 100 mls @ 25 mls/hr IV Q8H [facility] [place] Last Admin: 12/17/19 02:19 Dose: Not Given Sodium Chloride (Normal Saline) 500 mls @ 50 mls/hr IV ASDIRECTED [facility] [place] Last Admin: 12/16/19 14:20 Dose: 50 mls/hr Iopamidol (Isovue-300 (61%)) 84 ml IVPUSH ONETIME ONE Stop: 12/16/19 10:33 Last Admin: 12/16/19 10:35 Dose: 84 ml Ipratropium [place] (Atrovent) 0.5 mg NEB Q8H [facility] [place] Last Admin: 12/15/19 20:47 Dose: Not Given Non-Formulary Medication (Trazodone Hcl [Trazodone Hcl]) 150 mg PO BEDTIME [facility] [place] Last Admin: 12/15/19 22:04 Dose: 150 mg Ondansetron HCl (Zofran) 4 mg IVPUSH ONETIME ONE Stop: 12/15/19 15:36 Last Admin: 12/15/19 16:22 Dose: 4 mg Sodium Chloride (Saline Flush) 10 ml FLUSH ASDIRECTED PRN PRN Reason: Keep Vein Open - Exam Quality Assessment: Supplemental Oxygen, DVT Prophylaxis General: Alert, Cooperative, No Acute Distress HEENT: Pupils Equal, Pupils Reactive, Mucous Membr. Moist/[place] Neck: Supple, Trachea Midline Lungs: Clear to Auscultation, Normal Respiratory Effort Cardiovascular: Regular Rate, Regular Rhythm GI/Abdominal Exam: Normal Bowel Sounds, Soft, Non-Tender, No Distention (Female) Exam: Deferred Back Exam: Normal Inspection, Full Range of Motion Extremities: Normal Inspection, Normal Range of Motion, Non-Tender, No Pedal Edema, Normal Capillary Refill Skin: Warm, Dry, Intact Neurological: No New Focal Deficit Psy/Mental Status: Alert Sepsis Event Note - Evaluation Sepsis Screening Result: No Definite Risk - Focused Exam Vital Signs: Vital Signs Temp Pulse Resp BP Pulse Ox Pulse Ox 12/17/19 08:14 81 112/90 12/17/19 07:25 97.5 F 71 20 85/47 L 97 12/17/19 05:50 97 12/17/19 03:06 98.2 F 80 16 125/86 98 12/17/19 00:11 98.2 F 73 18 92/53 L 99 12/16/19 21:48 96 108/57 L 12/16/19 21:44 99.9 F 96 16 108/57 L 98 12/16/19 21:08 98 Date Exam was Performed: 12/17/19 Time Exam was Performed: 15:14 - Problem List & Annotations (1) Acute febrile illness SNOMED Code(s): 386762069 Code(s): R50.9 - FEVER, UNSPECIFIED Status: Acute Priority: High Current Visit: No (2) Leukocytosis SNOMED Code(s): 236250584, 631687656 Code(s): D72.829 - ELEVATED WHITE BLOOD CELL COUNT, UNSPECIFIED Status: Acute Priority: High Current Visit: No Qualifiers: Leukocytosis type: unspecified Qualified Code(s): D72.829 - Elevated white blood cell count, unspecified (3) Lung cancer SNOMED Code(s): 586277782 Code(s): C34.90 - MALIGNANT NEOPLASM OF UNSP PART OF UNSP BRONCHUS OR LUNG Status: Acute Current Visit: No Qualifiers: Laterality: right Lung location: unspecified part of lung Qualified Code( s): C34.91 - Malignant neoplasm of unspecified part of right bronchus or lung (4) Lung cancer, primary, with metastasis from lung to other site SNOMED Code(s): 23516111, 945598197 Code(s): C34.90 - MALIGNANT NEOPLASM OF UNSP PART OF UNSP BRONCHUS OR LUNG Status: Acute Current Visit: No Qualifiers: Laterality: right Qualified Code(s): C34.91 - Malignant neoplasm of unspecified part of right bronchus or lung (5) Anxiety SNOMED Code(s): 94019389 Code(s): F41.9 - ANXIETY DISORDER, UNSPECIFIED Status: Chronic Priority: Low Current Visit: No (6) Back pain SNOMED Code(s): 718295103 Code(s): M54.9 - DORSALGIA, UNSPECIFIED Status: Chronic Priority: Medium Current Visit: No Qualifiers: Back pain location: low back pain Chronicity: acute Back pain laterality : midline Sciatica presence: without sciatica Qualified Code(s): M54.5 - Low back pain (7) COPD (chronic obstructive pulmonary disease) SNOMED Code(s): 21395261 Code(s): J44.9 - CHRONIC OBSTRUCTIVE PULMONARY DISEASE, UNSPECIFIED Status : Chronic Priority: Medium Current Visit: No Qualifiers: COPD type: unspecified COPD Qualified Code(s): J44.9 - Chronic obstructive pulmonary disease, unspecified (8) Depression SNOMED Code(s): 83271925 Code(s): F32.9 - MAJOR DEPRESSIVE DISORDER, SINGLE EPISODE, UNSPECIFIED Status: Chronic Priority: Low Current Visit: No Qualifiers: Depression Type: other depression Qualified Code(s): F32.89 - Other specified depressive episodes (9) History of hepatitis C SNOMED Code(s): 17204472160214, 30079241867927 Code(s): Z86.19 - PERSONAL HISTORY OF OTHER INFECTIOUS AND PARASITIC DISEASES Status: Chronic Priority: Low Current Visit: No (10) History of laparoscopic cholecystectomy SNOMED Code(s): 191101501 Code(s): Z90.49 - ACQUIRED ABSENCE OF OTHER SPECIFIED PARTS OF DIGESTIVE TRACT Status: Chronic Priority: Low Current Visit: No (11) History of migraine SNOMED Code(s): 218170375 Code(s): Z86.69 - PERSONAL HISTORY OF DIS OF THE NERVOUS SYS AND SENSE ORGANS Status: Chronic Priority: Low Current Visit: No (12) History of seizures SNOMED Code(s): 213361018 Code(s): Z87.898 - PERSONAL HISTORY OF OTHER SPECIFIED CONDITIONS Status: Chronic Priority: Low Current Visit: No (13) History of suicide attempt SNOMED Code(s): 099204136, 904820162 Code(s): Z91.5 - PERSONAL HISTORY OF SELF-HARM Status: Chronic Priority: Low Current Visit: No (14) Immunocompromised state SNOMED Code(s): 524448610 Code(s): D89.9 - DISORDER INVOLVING THE IMMUNE MECHANISM, UNSPECIFIED Status: Chronic Priority: Medium Current Visit: No (15) Liver cancer SNOMED Code(s): 67896155 Code(s): C22.9 - MALIG NEOPLASM OF LIVER, NOT SPECIFIED PRIMARY OR SEC Status: Chronic Priority: Medium Current Visit: No Qualifiers: Liver malignancy type: unspecified liver malignancy Qualified Code(s): C22.9 - Malignant neoplasm of liver, not specified as primary or secondary (16) Liver metastases Status: Chronic Priority: Medium Current Visit: No (17) Osteoarthritis SNOMED Code(s): 545399237 Code(s): M19.90 - UNSPECIFIED OSTEOARTHRITIS, UNSPECIFIED SITE Status: Chronic Priority: Medium Current Visit: No Qualifiers: Osteoarthritis location: unspecified site Osteoarthritis type: unspecified Qualified Code(s): M19.90 - Unspecified osteoarthritis, unspecified site (18) Acute on chronic respiratory failure with hypoxemia SNOMED Code(s): 26920104936753429 Code(s): J96.21 - ACUTE AND CHRONIC RESPIRATORY FAILURE WITH HYPOXIA Status : Acute Priority: High Current Visit: Yes (19) Sepsis SNOMED Code(s): 24261121 Code(s): A41.9 - SEPSIS, UNSPECIFIED ORGANISM Status: Resolved Priority: High Current Visit: Yes Qualifiers: Sepsis type: sepsis due to unspecified organism Sepsis acute organ dysfunction status: without acute organ dysfunction Qualified Code(s): A41.9 - Sepsis, unspecified organism (20) Antineoplastic chemotherapy induced anemia Status: Acute Priority: High Current Visit: Yes (21) History of transfusion of packed red blood cells SNOMED Code(s): 480134128 Code(s): Z92.89 - PERSONAL HISTORY OF OTHER MEDICAL TREATMENT Status: Acute Priority: High Current Visit: Yes - Problem List Review Problem List Initiated/Reviewed/Updated: Yes - Plan Plan:: Assessment and plan: Acute on chronic hypoxemic respiratory failure: Has been requiring 1.5L over course of admission. Will order RT oxygen qualification with ambulation and overnight pulse oximetry. Has home O2 at night and will likely need increased O2. Chest CT shows worsening neoplasm. S/P Sepsis secondary to pneumonia: No fevers since admission. BP and vital signs have been stable. Patient reports she feels much better. WBC trending down. Urine cultures negative. Continue broad-spectrum antibiotics with Zosyn and doxycycline. Blood cultures negative. CT chest scan shows no obvious pneumonia however difficult with neoplasm and known immunocompromised state. Procalcitonin 0.21 Chemotherapy-induced anemia, the patient's H&H on admission 6.8/23.1, Now 8.1/ 26.4. Patient looks much better s/p 1 unit PRBC. Monitor H/H. Moderate CV risk factors. Patient will be on metoprol 12.5 mg PO bid and aspirin 81 mg PO daily. Telemetry. Stage IV lung cancer with metastasis to the liver: Patient who last had chemotherapy on 12/12/2019, she is scheduled for additional rounds of chemotherapy. We will continue to monitor patient for signs of abnormalities. Worsening chest CT neoplasms as noted. Hyponatremia: Stable. Sodium 130-->137-->133. Continue to monitor. Calorie malnutrition: Patient appears cachectic, noted with decreased BMI. We will start the patient on Ensure 1 can 3 times daily with meals. Pain Control: Acetaminophen 650mg PO Q6H PRN mild pain or fever, HYDROcodone 5/ 325mg PO Q6H PRN moderate pain, and morphine sulfate 2mg IVP Q4H PRN chest pain or severe pain. Restlessness or Allergies: Benadryl 25mg IV Q4H PRN restlessness or allergy. Depression: will continue the patient's home dose of lamotrigine 150 mg p.o BID , and Zoloft 25mg p.o daily. Insomnia: will continue trazodone 150 mg p.o qhs. Nausea: In case of nausea use Zofran 4mg IVP Q4H PRN nausea. DVT Prophylaxis: Lovenox 30mg subQ Q24H (dose adjusted to renal function). We will keep monitoring H&H and platelet count. UGI Bleed Prophylaxis: Protonix 40mg PO QPM before dinner, Carafate 2 gram PO QHS, anti-reflux precautions, and Mylanta 30 mL q4h PRN indigestion. Constipation Prophylaxis: Senokot S 2 tabs PO BID, MiraLAX 17 grams PO at 1400 daily PRN no bowl movement, Fleet enema every other day if needed. CODE STATUS: Full Code Disposition: Likely discharge 12/18/19
--- NOTE | 2019-12-17 09:00 | HP ---
DATE OF ADMISSION: 12/15/2019 ADDENDUM: CHIEF COMPLAINT: Fever, cough. PAST MEDICAL HISTORY: Significant for depression; right lung non-small cancer, on current chemotherapy with latest chemotherapy around on 12/12/2019. The patient was seen, examined, and discussed by me with Torsten Giordano PA-C. Ms. Collins is a 54-year-old white female with past medical history as above who stated that overall she was at her usual state of health till yesterday when the patient started having sore throat and started feeling very chilly, and today, the patient had shaking chills. She could not warm up, but after she warmed up finally, temperature was 101.4. The patient felt extremely weak, muscle aches, and she came to emergency room for evaluation. Evaluation in the emergency room found toxic-appearing, emaciated lady. Further encounter found white blood cells 17.4 thousand with WBC shift to left. In the emergency room, the patient's temperature was still very high at 101.2. The patient was found not tachycardic, but blood pressure was extremely low, as low as 71/47 (came up to 101/56 after 1 L of normal saline given in the emergency room). Further workup included a chest x-ray that was reviewed by me. The patient does have fibrosis over right mid lung secondary to known for the patient's right lung cancer. At the same time, the patient has areas of haziness over fibrosis, and over left lower lung, the patient has some linear infiltrates, difficult to say if it is infectious or just atelectasis. To lung auscultation, the patient has extremely diminished breathing sounds and basically silence over lower lungs. No obvious signs of fluid overload. The patient meets criteria for sepsis and the reason for sepsis most likely is bilateral pneumonia. With diagnosis of sepsis secondary to bilateral pneumonia in immunocompromised patient on chemotherapy, the patient will be admitted to Med/Surg floor telemetry for further workup and management. It is also worth to mention that at the time of physical exam, at time of conversation, the patient's pulse ox dropped as low as 79% to 82% and it took some time for the patient to build up her pulse ox back when she was placed on 3 L on nasal cannula oxygen. Additional diagnosis, acute on top of chronic hypoxemic respiratory failure. Upon admission to Med/Surg floor telemetry, diagnosis of pneumonia will be verified with chest CT. If for some reason, we do not see convincing signs of pneumonia, we will do further infectious workup that will include UA and maybe abdominal CT. The patient already received 1 L of normal saline fluids, blood pressure came up. We will still give additional 1 L of normal saline, and we will start IV fluids at 126 mL/hour, but we will watch the patient's fluid status, not to fluid overload the patient. Antibiotic choice will be Zosyn and doxycycline IV. We will provide the patient with DuoNeb nebulizer treatment q.6 hours and albuterol q.2 hours p.r.n. wheezes. Anticipated hospital stay is 3 to 4 days. General prognosis for this patient is very guarded given her primary diagnosis, deconditioning, and protein-calorie malnutrition/extremely low weight with BMI below 19. For details of the patient's history, clinical presentation, test results, physical exam, medications, and further plan of management, please see H and P note prepared by Torsten Giordano PA-C, that I discussed with Torsten in details at time of admission visit. GUILLAUME /[id number]
[2019-12-17] MEDS: Doxycycline 100 MG in Sodium Chloride 0.9% 100 ML IV SCH ×2 (10:22→20:07)
[2019-12-17] MEDS: Morphine 2 MG/ML Syringe IVPUSH PRN (10:28)
--- NOTE | 2019-12-17 10:41 | PN ---
DATE OF SERVICE: 12/16/2019 ADDENDUM: The patient was seen, examined, and discussed by me with Torsten Giordano PA-C. Ms. Collins today completely regained her mental status. Even comparing to all admissions, we can tell that the patient's mental status nicely improved. The patient still has cough. She did have fever up to 101 overnight but generally, the patient stated that she feels better, more interactive. Overnight, though, the patient did have an episode of a very low blood pressure, systolic was only in low 80s, so totally 3 L of normal saline boluses patient received overnight and was continued on the IV fluids up to 126 mL/h., and today though the patient is well hydrated and we will cut down on IV fluids to 75 mL/h. Today's hemoglobin came back at 6.8, most likely the patient developed chemotherapy- induced anemia that now revealed after hydration. 1 unit of PRBCs will be transfused and if needed additional units will be transfused tomorrow. Broad- spectrum antibiotics IV will be continued. We will keep close monitoring of respiratory status. The patient will stay in-house. For details of the patient's review of systems, interval test results, physical exam, medications, and further plan of management, please see note prepared by Torsten Giordano PA-C. GUILLAUME /[id number]
[2019-12-17] MEDS: Sucralfate 1 GM Tab PO SCH (20:04)
[2019-12-17] MEDS: traZODone 50 MG Tab PO SCH (20:04)
[2019-12-18] MEDS: Sodium Chloride 0.45% with KCl 1,000 ML IV SCH (04:28)
[2019-12-18] MEDS: Morphine 2 MG/ML Syringe IVPUSH PRN (04:33)
[2019-12-18] MEDS: Piperacillin/Tazobactam 4.5 GM in Sodium Chloride 0.9% 100 ML IV SCH ×2 (04:42→13:39)
[2019-12-18] MEDS: Albuterol/Ipratropium 3.0-0.5 MG/3 ML Neb Soln NEB SCH (05:23)
[2019-12-18] MEDS: Famotidine 20 MG Tab PO SCH ×2 (05:38→06:39)
--- NOTE | 2019-12-18 07:38 | PN ---
DATE OF SERVICE: 12/17/2019 ADDENDUM: The patient was seen, examined, and discussed by me with Mark Yuen PA-C. Ms. Collins today feels better and she was afebrile. At daytime, the patient does not require any oxygen supplementation for now. She is getting up and participated in physical therapy, even though still very weak. The chest CT that was done revealed worsening of infiltrate around the patient's right lung mass that is believed to represent inflammatory pneumonia and it looks like it is responding to our antibiotic treatment. The patient's white blood cells came down to 12.62 from 17.82 on admission and 14.95 yesterday, but still slightly elevated. At this moment, the patient will be continued on IV antibiotics. Overnight, we will do nocturnal oximetry on 1 L of nasal cannula oxygen the patient takes at home to make sure that she does not require any additional oxygen supplementation at night and tomorrow we will do exercise oximetry on room air to verify if the patient does or does not require oxygen supplementation. Other than this, hemoglobin remained stable at 8.1 after transfusion of 1 unit of PRBCs and no signs of any active bleeding. The patient will stay in-house, but prepare to discharge the patient home tomorrow. Upon discharge, we will recommend cefpodoxime 200 mg p.o. twice a day and doxycycline 100 mg p.o. twice a day to finish p.o. course of antibiotics for the patient's right mid lung pneumonia. The course of p.o. antibiotics will be 6 days. For details of the patient's review of systems, interval test results, physical exam, medications, and further plan of management, please see note prepared by Mark Yuen PA-C. MMODAL /[id number]
[2019-12-18] MEDS: Sertraline 25 MG Tab PO SCH (08:24)
[2019-12-18] MEDS: Aspirin 81 MG Tab.EC PO SCH (08:24)
[2019-12-18] MEDS: Metoprolol Succinate 25 MG Tab.ER PO SCH (08:24)
[2019-12-18] MEDS: Enoxaparin 30 MG/0.3 ML Syringe SUBCUT SCH (08:25)
[2019-12-18] MEDS: Polyethylene Glycol 3350 Powder 17 GM Packet PO SCH (08:31)
[2019-12-18] MEDS: Doxycycline 100 MG in Sodium Chloride 0.9% 100 ML IV SCH (08:45)
[2019-12-18] MEDS ORDERED: Magnesium Sulfate/Water 2 GM in Premix Bag 1 BAG IV ONE (09:30)
--- NOTE | 2019-12-18 11:04 | PCM.DCSUM1 ---
Discharge Summary - Hospital Course HPI Initial Comments: Mrs. Collins is a pleasant 54-year-old female, with past medical history significant for depression, insomnia, stage IV cancer with metastases to the liver. Patient presented today in the ED for evaluation of fevers and shaking chills. Patient reported she was in her usual state of health, when yesterday she started having some sore throat. Reported coming to the ER for further evaluation. Patient was evaluated in the ER, strep was done to the patient fortunately came back negative. Patient was discharged from the ER but woke up this morning with what she describes as persistent nonproductive cough, chills. Eyes any obvious nausea or vomiting, no abdominal pain but noted that she was shaking at the same time developed some headache so decided to come to the ED for further evaluation. Evaluation in the ED, patient appears toxic, when talking oxygen saturation dropped to 89% per the patient he uses 1 L of oxygen just at night. Vital signs 71/47, that improved to 110/50 liter of NS, T-max 101.2. Labs that was done to the patient in the ED created sodium/ potassium 130/2.7, chloride 97 CO2 27 BUN/creatinine 13/0.8, random glucose 123 , WBC 17.8 with 50 left, H&H 17.8/25.9, platelets 581. Chest x-ray concerning for right lower lobe pneumonia, to confirm diagnosis will require CT scan of chest with IV contrast. Given this presentation, patient will be admitted with chief complaint sepsis secondary to right lobe pneumonia for further work-up and management. Diagnosis: Stroke: No - Discharge Data Discharge Date: 12/18/19 (Admit date: 12/15/19) Discharge Disposition: Home, Self-Care 01 Condition: Good - Referral to Home Health Primary Care Physician: Ping Tamez MD - Discharge Diagnosis/Problem(s) (1) Acute febrile illness SNOMED Code(s): 992681197 ICD Code: R50.9 - FEVER, UNSPECIFIED Status: Acute Priority: High Current Visit: No (2) Leukocytosis SNOMED Code(s): 495599217, 194498414 ICD Code: D72.829 - ELEVATED WHITE BLOOD CELL COUNT, UNSPECIFIED Status: Acute Priority: High Current Visit: No Qualifiers: Leukocytosis type: unspecified Qualified Code(s): D72.829 - Elevated white blood cell count, unspecified (3) Lung cancer SNOMED Code(s): 842940070 ICD Code: C34.90 - MALIGNANT NEOPLASM OF UNSP PART OF UNSP BRONCHUS OR LUNG Status: Acute Current Visit: No Qualifiers: Laterality: right Lung location: unspecified part of lung Qualified Code( s): C34.91 - Malignant neoplasm of unspecified part of right bronchus or lung (4) Lung cancer, primary, with metastasis from lung to other site SNOMED Code(s): 58426854, 864789629 ICD Code: C34.90 - MALIGNANT NEOPLASM OF UNSP PART OF UNSP BRONCHUS OR LUNG Status: Acute Current Visit: No Qualifiers: Laterality: right Qualified Code(s): C34.91 - Malignant neoplasm of unspecified part of right bronchus or lung (5) Anxiety SNOMED Code(s): 19150935 ICD Code: F41.9 - ANXIETY DISORDER, UNSPECIFIED Status: Chronic Priority : Low Current Visit: No (6) Back pain SNOMED Code(s): 947739867 ICD Code: M54.9 - DORSALGIA, UNSPECIFIED Status: Chronic Priority: Medium Current Visit: No Qualifiers: Back pain location: low back pain Chronicity: acute Back pain laterality : midline Sciatica presence: without sciatica Qualified Code(s): M54.5 - Low back pain (7) COPD (chronic obstructive pulmonary disease) SNOMED Code(s): 70269356 ICD Code: J44.9 - CHRONIC OBSTRUCTIVE PULMONARY DISEASE, UNSPECIFIED Status : Chronic Priority: Medium Current Visit: No Qualifiers: COPD type: unspecified COPD Qualified Code(s): J44.9 - Chronic obstructive pulmonary disease, unspecified (8) Depression SNOMED Code(s): 58391186 ICD Code: F32.9 - MAJOR DEPRESSIVE DISORDER, SINGLE EPISODE, UNSPECIFIED Status: Chronic Priority: Low Current Visit: No Qualifiers: Depression Type: other depression Qualified Code(s): F32.89 - Other specified depressive episodes (9) History of hepatitis C SNOMED Code(s): 52155868791815, 70600472891113 ICD Code: Z86.19 - PERSONAL HISTORY OF OTHER INFECTIOUS AND PARASITIC DISEASES Status: Chronic Priority: Low Current Visit: No (10) History of laparoscopic cholecystectomy SNOMED Code(s): 233382765 ICD Code: Z90.49 - ACQUIRED ABSENCE OF OTHER SPECIFIED PARTS OF DIGESTIVE TRACT Status: Chronic Priority: Low Current Visit: No (11) History of migraine SNOMED Code(s): 335672460 ICD Code: Z86.69 - PERSONAL HISTORY OF DIS OF THE NERVOUS SYS AND SENSE ORGANS Status: Chronic Priority: Low Current Visit: No (12) History of seizures SNOMED Code(s): 530995366 ICD Code: Z87.898 - PERSONAL HISTORY OF OTHER SPECIFIED CONDITIONS Status: Chronic Priority: Low Current Visit: No (13) History of suicide attempt SNOMED Code(s): 291846463, 234572977 ICD Code: Z91.5 - PERSONAL HISTORY OF SELF-HARM Status: Chronic Priority : Low Current Visit: No (14) Immunocompromised state SNOMED Code(s): 194464774 ICD Code: D89.9 - DISORDER INVOLVING THE IMMUNE MECHANISM, UNSPECIFIED Status: Chronic Priority: Medium Current Visit: No (15) Liver cancer SNOMED Code(s): 65846789 ICD Code: C22.9 - MALIG NEOPLASM OF LIVER, NOT SPECIFIED PRIMARY OR SEC Status: Chronic Priority: Medium Current Visit: No Qualifiers: Liver malignancy type: unspecified liver malignancy Qualified Code(s): C22.9 - Malignant neoplasm of liver, not specified as primary or secondary (16) Liver metastases Status: Chronic Priority: Medium Current Visit: No (17) Osteoarthritis SNOMED Code(s): 094785767 ICD Code: M19.90 - UNSPECIFIED OSTEOARTHRITIS, UNSPECIFIED SITE Status: Chronic Priority: Medium Current Visit: No Qualifiers: Osteoarthritis location: unspecified site Osteoarthritis type: unspecified Qualified Code(s): M19.90 - Unspecified osteoarthritis, unspecified site (18) Acute on chronic respiratory failure with hypoxemia SNOMED Code(s): 71757634737879213 ICD Code: J96.21 - ACUTE AND CHRONIC RESPIRATORY FAILURE WITH HYPOXIA Status: Acute Priority: High Current Visit: Yes (19) Sepsis SNOMED Code(s): 47478000 ICD Code: A41.9 - SEPSIS, UNSPECIFIED ORGANISM Status: Resolved Priority : High Current Visit: Yes Qualifiers: Sepsis type: sepsis due to unspecified organism Sepsis acute organ dysfunction status: without acute organ dysfunction Qualified Code(s): A41.9 - Sepsis, unspecified organism (20) Antineoplastic chemotherapy induced anemia Status: Acute Priority: High Current Visit: Yes (21) History of transfusion of packed red blood cells SNOMED Code(s): 083437170 ICD Code: Z92.89 - PERSONAL HISTORY OF OTHER MEDICAL TREATMENT Status: Acute Priority: High Current Visit: Yes (22) Pneumonia SNOMED Code(s): 914020869 ICD Code: J18.9 - PNEUMONIA, UNSPECIFIED ORGANISM Status: Acute Priority : High Current Visit: Yes Qualifiers: Pneumonia type: due to unspecified organism Laterality: right Lung location: lower lobe of lung Qualified Code(s): J18.9 - Pneumonia, unspecified organism - Patient Summary/Data Consults: Consultations 12/15/19 18:41 OT Evaluation and Treatment [CONS] Routine PT Evaluation and Treatment [CONS] Routine Labs Pending at D/C: None Recommended Follow-up Testing/Procedures: Follow-up with primary care provider within 5-7 days of discharge, sooner if needed -Recommend recheck CBC, CMP, Magensium at that appointment. Follow-up with oncology as directed. Hospital Course: Florence was admitted to the hospital floor due to fever, cough, and suspected pneumonia. CT scan was obtained and appears to show worsening neoplasm. This may also have an underlying inflammatory pneumonia as her white count was quite high and she was requiring oxygen. She was started on twice daily doxycycline and every 8 hours Zosyn with good response. She also was noted to be anemic with a initial hemoglobin of 7.8. This did drop to 6.8 and she was given 1 unit packed red blood cells with good response. She states she feels much better. Globin has been stable since then and was 9.0 on discharge. We were able to wean her down for oxygen. Overnight pulse oximetry was obtained and she will be discharged on 2 L at nighttime. Respiratory therapy did attempt to qualify her and she does not need oxygen during the day. She was also started on daily 81 mg aspirin and probably 5 mg twice daily metoprolol due to her cardiac risk. She will be discharged on 6 more days of 200 mg p.o. twice daily cefpodoxime and 100 mg twice daily doxycycline PO. Home medications were otherwise continued. Her magnesium was low here and was supplemented. She is on daily magnesium and potassium supplementation this will be continued at discharge. She was instructed to follow-up with her primary care provider within 5 to 7 days of discharge or sooner if needed. She should follow-up with oncology as directed. We do recommend she obtain a repeat CBC, CMP, magnesium at discharge to check her levels. She was discharged home today. - Patient Instructions Diet: Usual Diet as Tolerated Activity: As Tolerated Driving: Do Not Drive (today) Showering/Bathing: May Shower Notify Provider of: Fever, Increased Pain, Nausea and/or Vomiting Other/Special Instructions: Follow-up with primary care provider within 5-7 days of dishcarge, sooner if needed. Follow-up with oncology as directed. Resume home medications as instructed. Take all of your antibioitic as prescribed until completed, even if you feel 100% better. No need for oxygen during the day. Please wear 2L at night. It is very important that you continue to do this as your oxygen saturations appear to drop overnight. Should symtpoms return or worsen contact primary care provider or return to the Emergency Department. - Discharge Plan *PRESCRIPTION DRUG MONITORING PROGRAM REVIEWED*: No *COPY OF PRESCRIPTION DRUG MONITORING REPORT IN PATIENT RUFINO: No Prescriptions/Med Rec: Aspirin [Halfprin] 81 mg PO DAILY #20 tab.ec Cefpodoxime [Vantin] 200 mg PO BID #12 tab Doxycycline [Vibramycin] 100 mg PO DAILY #12 tab Metoprolol Succinate [Toprol XL] 12.5 mg PO BID #15 tab.er Home Medications: Home Meds traZODone HCl [Trazodone HCl] 150 mg PO BEDTIME 05/19/18 [History] Sertraline [Zoloft] 25 mg PO DAILY 08/14/19 [History] lamoTRIgine 150 mg PO BID 10/26/19 [History] Magnesium 250 mg PO DAILY 12/14/19 [History] Potassium Chloride 20 meq PO DAILY 12/15/19 [History] Albuterol Sulfate [Albuterol Sulfate Hfa] 2 puff INH Q4H PRN 12/18/19 [History] Aspirin [Halfprin] 81 mg PO DAILY #20 tab.ec 12/18/19 [Rx] Cefpodoxime [Vantin] 200 mg PO BID #12 tab 12/18/19 [Rx] Doxycycline [Vibramycin] 100 mg PO DAILY #12 tab 12/18/19 [Rx] Metoprolol Succinate [Toprol XL] 12.5 mg PO BID #15 tab.er 12/18/19 [Rx] Oxygen Therapy Mode: Room Air Oxygen Flow Rate (L/min): 0 (2L at night ) Patient Handouts: Home Oxygen Use, Adult, Community-Acquired Pneumonia, Adult, [id number] Forms: ED Department Discharge Referrals: Ping Tamez MD [Primary Care Provider] - - Discharge Summary/Plan Comment DC Time >30 min.: Yes (45 mins ) - General Info Date of Service: 12/18/19 Admission Dx/Problem (Free Text: Admission Diagnosis/Problem Admission Diagnosis/Problem Fever Functional Status: Reports: Pain Controlled, Tolerating Diet, Ambulating, Urinating. Denies: New Symptoms - Review of Systems General: Reports: No Symptoms. Denies: Fever, Weakness, Fatigue, Malaise, Chills HEENT: Reports: No Symptoms. Denies: Headaches, Sore Throat Pulmonary: Reports: No Symptoms. Denies: Shortness of Breath, Cough, Sputum, Wheezing Cardiovascular: Reports: No Symptoms. Denies: Chest Pain, Palpitations, Dyspnea on Exertion Gastrointestinal: Reports: No Symptoms. Denies: Abdominal Pain, Constipation, Diarrhea, Nausea, Vomiting Genitourinary: Reports: No Symptoms. Denies: Pain Musculoskeletal: Reports: Back Pain (chronic ) Skin: Reports: No Symptoms. Denies: Cyanosis Neurological: Reports: No Symptoms. Denies: Confusion, Difficulty Walking, Weakness, Gait Disturbance Psychiatric: Reports: No Symptoms - Patient Data Vitals - Most Recent: Last Vital Signs Temp 99.9 F 12/18/19 08:22 Pulse 88 12/18/19 08:24 Resp 18 12/18/19 08:22 BP 107/58 L 12/18/19 08:24 Pulse Ox 92 L 12/18/19 08:22 Weight - Most Recent: 101 lb 4.8 oz I&O - Last 24 hours: Intake & Output 12/17/19 12/18/19 12/18/19 22:59 06:59 14:59 Intake Total 3353 1719 540 Output Total 1000 2450 Balance 2353 -731 540 Lab Results - Last 24 hrs: Laboratory Results - last 24 hr 12/18/19 12/18/19 Range/Units 08:06 08:06 WBC 15.09 H (3.98-10.04) K/mm3 RBC 3.26 L (3.98-5.22) M/mm3 Hgb 9.0 L (11.2-15.7) gm/dl Hct 29.2 L (34.1-44.9) % MCV 89.6 (79.4-94.8) fl MCH 27.6 (25.6-32.2) pg MCHC 30.8 L (32.2-35.5) g/dl RDW Std Deviation 68.2 H (36.4-46.3) fL Plt Count 580 H D (182-369) K/mm3 MPV 8.3 L (9.4-12.3) fl Neut % (Auto) 80.3 H (34.0-71.1) % Lymph % (Auto) 6.2 L (19.3-51.7) % [place] % (Auto) 12.5 (4.7-12.5) % Eos % (Auto) 0.2 L (0.7-5.8) Baso % (Auto) 0.1 (0.1-1.2) % Neut # (Auto) 12.11 H (1.56-6.13) K/mm3 Lymph # (Auto) 0.93 L (1.18-3.74) K/mm3 [place] # (Auto) 1.89 H (0.24-0.36) K/mm3 Eos # (Auto) 0.03 L (0.04-0.36) K/mm3 Baso # (Auto) 0.02 (0.01-0.08) K/mm3 Manual Slide Review Abnormal smear Sodium 129 L (136-145) mEq/L Potassium 4.6 (3.5-5.1) mEq/L Chloride 93 L (98-107) mEq/L Carbon Dioxide 27 (21-32) mEq/L Anion Gap 13.6 (5-15) BUN 9 (7-18) mg/dL Creatinine 0.8 (0.55-1.02) mg/dL Est Cr Clr Drug Dosing 58.31 mL/min Estimated GFR (MDRD) > 60 (>60) mL/min BUN/Creatinine Ratio 11.3 L (14-18) Glucose 110 H (74-106) mg/dL Calcium 9.3 (8.5-10.1) mg/dL Magnesium 1.6 L (1.8-2.4) mg/dl Total Bilirubin 0.8 (0.2-1.0) mg/dL AST 18 (15-37) U/L ALT 12 L (14-59) U/L Alkaline Phosphatase 168 H (46-116) U/L Total Protein 7.1 (6.4-8.2) g/dl Albumin 2.5 L (3.4-5.0) g/dl Globulin 4.6 gm/dL Albumin/Globulin Ratio 0.5 L (1-2) TYREE Results - Last 24 hrs: Microbiology 12/15/19 16:34 Aerobic Blood Culture - Preliminary Blood - Venous - Lab Draw NO GROWTH AFTER 2 DAYS Anaerobic Blood Culture - Preliminary NO GROWTH AFTER 2 DAYS 12/15/19 16:25 Aerobic Blood Culture - Preliminary Blood - Venous NO GROWTH AFTER 2 DAYS Anaerobic Blood Culture - Preliminary NO GROWTH AFTER 2 DAYS 12/15/19 16:35 Urine Culture - Final Urine, Clean Catch MIXED JIMBO SUGGESTIVE OF CONTAMINATION. Med Orders - Current: Current Medications Acetaminophen (Tylenol) 650 mg PO Q6H PRN PRN Reason: Pain (Mild 1-3) or Fever Last Admin: 12/16/19 03:30 Dose: 650 mg Acetaminophen (Tylenol) 650 mg RECTAL Q6H PRN PRN Reason: Pain (Mild 1-3) or Fever Hydrocodone Bitart/Acetaminophen ([place] 325-5 Mg) 1 tab PO Q6H PRN PRN Reason: Pain (moderate 4-6) Last Admin: 12/17/19 23:08 Dose: 1 tab Albuterol/Ipratropium (Duoneb 3.0-0.5 Mg/3 Ml) 3 ml NEB Q8HRRT [facility] Last Admin: 12/18/19 05:23 Dose: 3 ml Albuterol/Ipratropium (Duoneb 3.0-0.5 Mg/3 Ml) 3 ml NEB Q2H PRN PRN Reason: Shortness of Breath Aspirin (Halfprin) 81 mg PO DAILY [facility] Last Admin: 12/18/19 08:24 Dose: 81 mg Diphenhydramine HCl (Benadryl) 25 mg IVPUSH Q4H PRN PRN Reason: Restlessness or Allergies Enoxaparin Sodium (Lovenox) 30 mg SUBCUT DAILY [facility] Last Admin: 12/18/19 08:25 Dose: 30 mg Famotidine (Pepcid) 20 mg PO Q12H [facility] Last Admin: 12/18/19 06:39 Dose: Not Given Doxycycline Hyclate 100 mg/ (Sodium Chloride) 100 mls @ 100 mls/hr IV Q12HR [facility] Last Admin: 12/18/19 08:45 Dose: 100 mls/hr Potassium Chloride/Sodium Chloride (1/2 Ns With 20 Meq Kcl) 1,000 mls @ 75 mls/ hr IV ASDIRECTED [facility] Last Admin: 12/18/19 04:28 Dose: 126 mls/hr Piperacillin Sod/Tazobactam (Sod 4.5 gm/ Sodium Chloride) 100 mls @ 25 mls/hr IV Q8H [facility] Last Admin: 12/18/19 04:42 Dose: 25 mls/hr Magnesium Sulfate 2 gm/ Premix 50 mls @ 25 mls/hr IV ONETIME ONE Stop: 12/18/19 11:29 Last Admin: 12/18/19 10:22 Dose: 25 mls/hr Lamotrigine (Lamotrigine) 150 mg PO BID [facility] Last Admin: 12/18/19 08:24 Dose: 150 mg Metoprolol Succinate (Toprol Xl) 12.5 mg PO BID [facility] Last Admin: 12/18/19 08:24 Dose: 12.5 mg Morphine Sulfate (Morphine) 2 mg IVPUSH Q4H PRN PRN Reason: Pain (severe 7-10) Last Admin: 12/18/19 04:33 Dose: 2 mg Ondansetron HCl (Zofran) 4 mg IVPUSH Q4H PRN PRN Reason: Nausea and Vomiting Last Admin: 12/18/19 07:46 Dose: 4 mg Polyethylene Glycol (Miralax) 17 gm PO DAILY [facility] Last Admin: 12/18/19 08:31 Dose: Not Given Senna/Docusate Sodium (Senna Plus) 2 tab PO BID [facility] Last Admin: 12/18/19 08:31 Dose: Not Given Sertraline HCl (Zoloft) 25 mg PO DAILY [facility] Last Admin: 12/18/19 08:24 Dose: 25 mg Sodium Chloride (Saline Flush) 10 ml FLUSH ONETIME PRN PRN Reason: IV Flush Last Admin: 12/16/19 10:35 Dose: 10 ml Sucralfate (Carafate) 2 gm PO BEDTIME [facility] Last Admin: 12/17/19 20:04 Dose: 2 gm Trazodone HCl (Trazodone) 150 mg PO BEDTIME IVONNE Last Admin: 12/17/19 20:04 Dose: 150 mg Discontinued Medications Acetaminophen (Tylenol) 975 mg PO NOW ONE Stop: 12/15/19 17:57 Last Admin: 12/15/19 18:11 Dose: 975 mg Albuterol (Proventil Neb Soln) 2.5 mg NEB Q2H PRN PRN Reason: Wheezing Doxycycline Hyclate (Vibramycin) Confirm Administered Dose 100 mg .ROUTE .STK- MED ONE Stop: 12/15/19 17:59 Last Admin: 12/15/19 23:10 Dose: Not Given Lactated Ringer's (Ringers, Lactated) 1,000 mls @ 999 mls/hr IV .BOLUS ONE Stop: 12/15/19 16:35 Last Admin: 12/15/19 16:22 Dose: 999 mls/hr Lactated Ringer's (Ringers, Lactated) 1,000 mls @ 125 mls/hr IV ASDIRECTED [facility] Last Admin: 12/15/19 17:37 Dose: 125 mls/hr Piperacillin Sod/Tazobactam (Sod 4.5 gm/ Sodium Chloride) 100 mls @ 200 mls/hr IV ONETIME ONE Stop: 12/15/19 18:04 Last Admin: 12/15/19 17:53 Dose: 200 mls/hr Doxycycline Hyclate 100 mg/ (Sodium Chloride) 100 mls @ 100 mls/hr IV ONETIME ONE Stop: 12/15/19 18:36 Last Admin: 12/15/19 18:28 Dose: 100 mls/hr Sodium Chloride (Normal Saline) 1,000 mls @ 999 mls/hr IV ONETIME ONE Stop: 12/15/19 19:40 Last Admin: 12/15/19 23:10 Dose: Not Given Potassium Chloride/Sodium Chloride (1/2 Ns With 20 Meq Kcl) 1,000 mls @ 126 mls /hr IV ASDIRECTED [facility] Doxycycline Hyclate 100 mg/ (Sodium Chloride) 100 mls @ 100 mls/hr IV Q12HR [facility] Last Admin: 12/15/19 21:17 Dose: Not Given Piperacillin Sod/Tazobactam (Sod 4.5 gm/ Sodium Chloride) 100 mls @ 200 mls/hr IV ONETIME ONE Stop: 12/15/19 19:25 Last Admin: 12/15/19 23:11 Dose: Not Given Sodium Chloride (Normal Saline) 1,000 mls @ 999 mls/hr IV ONETIME ONE Stop: 12/15/19 21:52 Last Admin: 12/15/19 21:58 Dose: 999 mls/hr Sodium Chloride (Normal Saline) 1,000 mls @ 999 mls/hr IV ONETIME ONE Stop: 12/16/19 00:25 Last Admin: 12/15/19 23:35 Dose: 999 mls/hr Sodium Chloride (Normal Saline) Confirm Administered Dose 1,000 mls @ as directed .ROUTE .STK-MED ONE Stop: 12/15/19 23:32 Last Admin: 12/15/19 23:35 Dose: Not Given Piperacillin Sod/Tazobactam (Sod 4.5 gm/ Sodium Chloride) 100 mls @ 200 mls/hr IV ONETIME ONE Stop: 12/16/19 08:20 Last Admin: 12/16/19 08:46 Dose: 200 mls/hr Piperacillin Sod/Tazobactam (Sod 4.5 gm/ Sodium Chloride) 100 mls @ 25 mls/hr IV Q8H [facility] Last Admin: 12/17/19 02:19 Dose: Not Given Sodium Chloride (Normal Saline) 500 mls @ 50 mls/hr IV ASDIRECTED [facility] Last Admin: 12/16/19 14:20 Dose: 50 mls/hr Iopamidol (Isovue-300 (61%)) 84 ml IVPUSH ONETIME ONE Stop: 12/16/19 10:33 Last Admin: 12/16/19 10:35 Dose: 84 ml Ipratropium [place] (Atrovent) 0.5 mg NEB Q8H [facility] Last Admin: 12/15/19 20:47 Dose: Not Given Non-Formulary Medication (Trazodone Hcl [Trazodone Hcl]) 150 mg PO BEDTIME [facility] Last Admin: 12/15/19 22:04 Dose: 150 mg Ondansetron HCl (Zofran) 4 mg IVPUSH ONETIME ONE Stop: 12/15/19 15:36 Last Admin: 12/15/19 16:22 Dose: 4 mg Sodium Chloride (Saline Flush) 10 ml FLUSH ASDIRECTED PRN PRN Reason: Keep Vein Open - Exam Quality Assessment: Reports: DVT Prophylaxis General: Reports: Alert, Oriented, Cooperative, No Acute Distress HEENT: Reports: Pupils Equal, Pupils Reactive, Mucous Membr. Moist/[place] Lungs: Reports: Clear to Auscultation, Normal Respiratory Effort Cardiovascular: Reports: Regular Rate, Regular Rhythm, Other (Port in chest ) GI/Abdominal Exam: Normal Bowel Sounds, Soft, Non-Tender, No Distention (Female) Exam: Deferred Rectal (Female) Exam: Deferred Back Exam: Reports: Normal Inspection, Full Range of Motion Extremities: Normal Inspection, Normal Range of Motion, Non-Tender, No Pedal Edema, Normal Capillary Refill Skin: Reports: Warm, Dry, Intact Neurological: Reports: No New Focal Deficit Psy/Mental Status: Reports: Alert, Normal Affect, Normal Mood
--- NOTE | 2019-12-18 16:16 | DISCH ---
ADMISSION DATE: 12/15/2019 DISCHARGE DATE: 12/18/2019 ADDENDUM: FINAL DIAGNOSIS: 1. Sepsis secondary to severe right perifocal cancer pneumonia in immunocompromised patient on chemotherapy. 2. Right lung cancer, on chemotherapy. 3. Chronic hypoxemic respiratory failure requiring nasal cannula oxygen supplementation 2 L/minute overnight. 4. History of seizures. 5. Migraine. 6. History of hepatitis C. 7. Depression. 8. Anxiety. The patient was seen, examined, and discussed by me with Mark Yuen PA-C. HOSPITAL COURSE: Ms. Collins is a 54-year-old white female who was admitted to the hospital on 12/15/2019, from emergency room where the patient presented with changes in mental status/metabolic and possibly hypoxic encephalopathy, shaking chills, was found with high white blood cells, tachycardia. Clinical assessment and x-ray showed signs of pneumonia. Initially, it was the impression that patient has bilateral pneumonia, but CT scan showed that the patient has perifocal pneumonia around known for patient cancer. She was on broad-spectrum antibiotics. We applied oxygen supplementation. The patient received massive fluid resuscitation that included 3 L boluses of IV fluids on admission and fortunately established nice trend for improvement. By the day of discharge, the patient's condition is stable, mental status back to baseline. We found that at nighttime, the patient does require nasal cannula oxygen supplementation. She is afebrile and will be discharged home to continue chemotherapy under the care of her oncologist and follow up with primary physician. Upon discharge, we recommend nasal cannula oxygen at night and several more days of p.o. antibiotics to finish course of treatment for pneumonia and sepsis. For details of patient's history, clinical presentation, test results, physical exam, course of hospital stay, discharge medications and recommendations, please see discharge summary and discharge instructions prepared by Mark Yuen PA-C. MMODAL /[id number]
== END 2019-12-18 13:55 | disposition home or self-care (01) | DRG 871 ==
LOC: JD.ED 15:15 → JD.MS 18:23
PROVIDERS: ADMIT Internal Medicine; ATTEND Internal Medicine
PROC: 30233N1 Transfusion of Nonautologous Red Blood Cells into Peripheral Vein, Percutaneous Approach (ICD-10-PCS; principal; 2019-12-16)
DX: J18.1 Lobar pneumonia, unspecified organism (principal); A41.9 Sepsis, unspecified organism; C34.90 Malignant neoplasm of unspecified part of unspecified bronchus or lung; J18.9 Pneumonia, unspecified organism; J96.21 Acute and chronic respiratory failure with hypoxia; C34.91 Malignant neoplasm of unspecified part of right bronchus or lung; C78.7 Secondary malignant neoplasm of liver and intrahepatic bile duct; Z51.5 Encounter for palliative care; F32.9 Major depressive disorder, single episode, unspecified; E46 Unspecified protein-calorie malnutrition; Z91.81 History of falling; E87.1 Hypo-osmolality and hyponatremia; F41.9 Anxiety disorder, unspecified; M54.5 Low back pain; J44.9 Chronic obstructive pulmonary disease, unspecified; F32.89 Other specified depressive episodes; D89.9 Disorder involving the immune mechanism, unspecified; M19.90 Unspecified osteoarthritis, unspecified site; H54.7 Unspecified visual loss; D64.81 Anemia due to antineoplastic chemotherapy; D63.0 Anemia in neoplastic disease; T45.1X5A Adverse effect of antineoplastic and immunosuppressive drugs, initial encounter; G47.00 Insomnia, unspecified; Z92.89 Personal history of other medical treatment; Z86.19 Personal history of other infectious and parasitic diseases; Z90.49 Acquired absence of other specified parts of digestive tract; Z86.69 Personal history of other diseases of the nervous system and sense organs; Z87.898 Personal history of other specified conditions; Z91.5 Personal history of self-harm; Z79.82 Long term (current) use of aspirin; Z79.899 Other long term (current) drug therapy; Z88.8 Allergy status to other drugs, medicaments and biological substances; Z90.710 Acquired absence of both cervix and uterus
CPT/HCPCS: 36415; 71045; 80053; 81001; 82150; 83605; 83690; 84145; 85007; 85027; 85610; 86140; 87040 ×2; 87086; 96361; 96365; 96375; 99285; A9270; J2405; J2543; J7050; J7120 ×2; 36430; 71260; 71260-26; 83540; 83735; 84443; 84466; 85025; 86850; 86900; 86901; 86922; 87804; 94640; 94761; 96366; 96367; 97116-GP; 97162-GP; 97165-GO; J1642; J1650; J2270; J3475; J3480; J3490; J7030; J7040; J7620-GY; P9016; Q9967

== ENCOUNTER 2020-01-07 15:13 | Emergency (ER) | payer MEDICAID ==
--- NOTE | 2020-01-07 16:49 | EDM.PDOC ---
<Ania Cantrell - Last Filed: 01/07/20 16:33> ED HPI GENERAL MEDICAL PROBLEM - General Chief Complaint: General Stated Complaint: HEADACHE Time Seen by Provider: 01/07/20 15:37 Source of Information: Reports: Patient, RN Notes Reviewed History Limitations: Reports: No Limitations - History of Present Illness INITIAL COMMENTS - FREE TEXT/NARRATIVE: Florence presents with complaints of a KIRBY. She states she fell to her knees last night. She states she was able to crawl to her bed and get into bed. She does not remember striking her head but woke up this morning with a KIRBY on top right parietal scalp. Florence has a history of migraines and this is not like her migraine KIRBY. She has nausea, vomiting, and diarrhea chronically due to her chemo treatment for her lung cancer with mets to the liver. Her last chemo treatment was January 02, 2020. Florence had a scratchy throat yesterday. She states she was out at [facility] with her mask a few days ago. She was tested for COVID- 19 in November and which was negative. Florence notes she had a temp of 100.6 this am. Headache Pain Score (Numeric/FACES): 7 - Related Data Allergies Allergy/AdvReac Type Severity Reaction Status Date / Time ketorolac [From Toradol] AdvReac Vomiting Verified 01/07/20 15:58 Home Meds: Home Meds traZODone HCl [Trazodone HCl] 150 mg PO BEDTIME 05/19/18 [History] Sertraline [Zoloft] 25 mg PO DAILY 08/14/19 [History] lamoTRIgine 150 mg PO BID 10/26/19 [History] Albuterol Sulfate [Albuterol Sulfate Hfa] 2 puff INH Q4H PRN 12/18/19 [History] traMADol HCl [Tramadol HCl] 50 mg PO Q6H PRN 01/07/20 [History] Past Medical History HEENT History: Reports: Impaired Vision, Other (See Below) Other HEENT History: wears glasses Respiratory History: Reports: COPD, Other (See Below) Other Respiratory History: lung cancer, emphysema Gastrointestinal History: Reports: Hepatitis Other Gastrointestinal History: "cured for hepatitis C" Genitourinary History: Reports: None CREDIT MANAGER History: Reports: Other CREDIT MANAGER History: partial hysterectomy, vaginal x 3 deliveries Musculoskeletal History: Reports: Osteoarthritis Other Musculoskeletal History: and scoliosis of the spine Neurological History: Reports: Migraines, Seizure Psychiatric History: Reports: Anxiety, Depression, Suicide Attempt Immunologic History: Reports: Other (See Below) Other Immunologic History: Hep C- cured? Oncologic (Cancer) History: Reports: Liver, Lung, Metastatic Other Oncologic History: Last chemo-12/12/2019 Dermatologic History: Reports: Other (See Below) Other Dermatologic History: dry skin - Infectious Disease History Infectious Disease History: Reports: Chicken Pox, Hepatitis C Other Infectious Disease History: had treatment and now is clear since November. - Past Surgical History HEENT Surgical History: Reports: Oral Surgery Other HEENT Surgeries/Procedures: upper dentures, not here with pt Respiratory Surgical History: Reports: None GI Surgical History: Reports: Appendectomy, Cholecystectomy Female Surgical History: Reports: Hysterectomy Neurological Surgical History: Reports: None Musculoskeletal Surgical History: Reports: None Social & Family History - Family History Family Medical History: Noncontributory Cardiac: Reports: CAD Oncologic: Reports: Breast - Tobacco Use Smoking Status *Q: Former Smoker Years of Tobacco use: 17 Packs/Tins Daily: 1 Used Tobacco, but Quit: Yes Month/Year Tobacco Last Used: 06/2019 - Caffeine Use Caffeine Use: Reports: Coffee Other Caffeine Use: 2 cups a day sometimes 3 - Recreational Drug Use Recreational Drug Use: Yes Drug Use in Last 12 Months: No Recreational Drug Type: Reports: Marijuana/Hashish, Methamphetamine Recreational Drug Last Use: 3 years - Living Situation & Occupation Living situation: Reports: , with Family (Daughter, her 2 kids, and her boyfriend) Occupation: Disabled ED ROS GENERAL - Review of Systems Review Of Systems: Comprehensive ROS is negative, except as noted in HPI. ED EXAM, GENERAL - Physical Exam Exam Limited By: No Limitations General Appearance: Alert, WD/WN, No Apparent Distress, Other (T: 100.3 P: 81 Resp: 18 B/P: 109/50 SpO2 99%) Throat/Mouth: Normal Inspection, Normal Lips, Normal Teeth, Normal Gums, Normal Oropharynx, Normal Voice, No Airway Compromise Head: Other (small abrasion with soft swelling right parietal scalp) Neck: Normal Inspection, Supple, Non-Tender, Full Range of Motion Respiratory/Chest: No Respiratory Distress, Lungs Clear, Normal Breath Sounds, No Accessory Muscle Use, Chest Non-Tender Cardiovascular: Normal Peripheral Pulses, Regular Rate, Rhythm, No Edema, No Gallop, No JVD, No Murmur, No Rub GI/Abdominal: Normal Bowel Sounds, Soft, Non-Tender, No Organomegaly, No Distention, No Abnormal Bruit, No Mass Extremities: Normal Inspection, Normal Range of Motion, Non-Tender, Normal Capillary Refill, No Pedal Edema Neurological: Alert, Oriented, CN II-XII Intact, Normal Cognition, Normal Gait, Normal Reflexes, No Motor/Sensory Deficits Psychiatric: Normal Affect, Normal Mood Skin Exam: Warm, Dry, Intact, Normal Color, No Rash Course - Vital Signs Last Recorded V/S: Last Vital Signs Temp 100.6 F 01/07/20 18:39 Pulse 79 01/07/20 18:39 Resp 18 01/07/20 18:39 BP 102/53 L 01/07/20 18:39 Pulse Ox 98 01/07/20 18:39 - Orders/Labs/Meds Orders: Active Orders 24 hr Category Date Time Status Cardiac Monitoring [RC] . DIRECTED Care 01/07/20 16:27 Active CULTURE BLOOD [BC] Stat Lab 01/07/20 18:30 Received CULTURE BLOOD [] Stat Lab 01/07/20 18:38 Received CULTURE STREP A CONFIRMATION [] Stat Lab 01/07/20 16:32 Results STREP SCRN A RAPID W CULT CONF [] Stat Lab 01/07/20 16:32 Results cefTRIAXone 1 GM with Lidocaine 1% 2.1 ML IM Med 01/07/20 19:30 Ordered cefTRIAXone [Rocephin] 1 gm Lidocaine 1% [Xylocaine 1%] 2.1 ml IM Q24H Blood Culture x2 Reflex Set [OM.PC] Stat Oth 01/07/20 17:46 Ordered Medication Orders Ceftriaxone Sodium 1 gm/ (Lidocaine HCl 2.1 ml) 0 gm IM Q24H [facility] Labs: Laboratory Tests 01/07/20 01/07/20 01/07/20 Range/Units 16:50 17:00 17:00 WBC 28.71 H (3.98-10.04) K/mm3 RBC 3.54 L (3.98-5.22) M/mm3 Hgb 10.1 L D (11.2-15.7) gm/dl Hct 32.4 L (34.1-44.9) % MCV 91.5 (79.4-94.8) fl MCH 28.5 (25.6-32.2) pg MCHC 31.2 L (32.2-35.5) g/dl RDW Std Deviation 63.6 H (36.4-46.3) fL Plt Count 454 H D (182-369) K/mm3 MPV 8.3 L (9.4-12.3) fl Neut % (Auto) 90.4 H (34.0-71.1) % Lymph % (Auto) 4.2 L (19.3-51.7) % [place] % (Auto) 4.7 (4.7-12.5) % Eos % (Auto) 0.2 L (0.7-5.8) Baso % (Auto) 0.1 (0.1-1.2) % Neut # (Auto) 25.95 H (1.56-6.13) K/mm3 Lymph # (Auto) 1.21 (1.18-3.74) K/mm3 [place] # (Auto) 1.36 H (0.24-0.36) K/mm3 Eos # (Auto) 0.06 (0.04-0.36) K/mm3 Baso # (Auto) 0.02 (0.01-0.08) K/mm3 Manual Slide Review Abnormal smear Sodium 127 L (136-145) mEq/L Potassium 3.2 L (3.5-5.1) mEq/L Chloride 86 L (98-107) mEq/L Carbon Dioxide 32 (21-32) mEq/L Anion Gap 12.2 (5-15) BUN 10 (7-18) mg/dL Creatinine 0.7 (0.55-1.02) mg/dL Est Cr Clr Drug Dosing 69.08 mL/min Estimated GFR (MDRD) > 60 (>60) mL/min BUN/Creatinine Ratio 14.3 (14-18) Glucose 106 (74-106) mg/dL Calcium 9.1 (8.5-10.1) mg/dL Total Bilirubin 0.3 (0.2-1.0) mg/dL AST 15 (15-37) U/L ALT 14 (14-59) U/L Alkaline Phosphatase 186 H (46-116) U/L C-Reactive Protein 24.9 H* (<1.0) mg/dL Total Protein 7.4 (6.4-8.2) g/dl Albumin 2.4 L (3.4-5.0) g/dl Globulin 5.0 gm/dL Albumin/Globulin Ratio 0.5 L (1-2) Urine Color Yellow (Yellow) Urine Appearance Clear (Clear) Urine pH 8.0 (5.0-8.0) Ur Specific [place] 1.020 (1.005-1.030) Urine Protein 1+ H (Negative) Urine Glucose (UA) Negative (Negative) Urine Ketones Negative (Negative) Urine Occult Blood 1+ H (Negative) Urine Nitrite Negative (Negative) Urine Bilirubin Negative (Negative) Urine Urobilinogen 0.2 (0.2-1.0) Ur Leukocyte Esterase Negative (Negative) Urine RBC 5-10 H (0-5) /hpf Urine WBC 0-5 (0-5) /hpf Ur Squamous Epith Cells 5-10 H (0-5) /hpf Urine Bacteria Few (FEW) /hpf Urine Mucus Few (FEW) /hpf SARS-CoV-2 RNA (RT-PCR) (NEGATIVE) 01/07/20 Range/Units 18:38 WBC (3.98-10.04) K/mm3 RBC (3.98-5.22) M/mm3 Hgb (11.2-15.7) gm/dl Hct (34.1-44.9) % MCV (79.4-94.8) fl MCH (25.6-32.2) pg MCHC (32.2-35.5) g/dl RDW Std Deviation (36.4-46.3) fL Plt Count (182-369) K/mm3 MPV (9.4-12.3) fl Neut % (Auto) (34.0-71.1) % Lymph % (Auto) (19.3-51.7) % [place] % (Auto) (4.7-12.5) % Eos % (Auto) (0.7-5.8) Baso % (Auto) (0.1-1.2) % Neut # (Auto) (1.56-6.13) K/mm3 Lymph # (Auto) (1.18-3.74) K/mm3 [place] # (Auto) (0.24-0.36) K/mm3 Eos # (Auto) (0.04-0.36) K/mm3 Baso # (Auto) (0.01-0.08) K/mm3 Manual Slide Review Sodium (136-145) mEq/L Potassium (3.5-5.1) mEq/L Chloride (98-107) mEq/L Carbon Dioxide (21-32) mEq/L Anion Gap (5-15) BUN (7-18) mg/dL Creatinine (0.55-1.02) mg/dL Est Cr Clr Drug Dosing mL/min Estimated GFR (MDRD) (>60) mL/min BUN/Creatinine Ratio (14-18) Glucose (74-106) mg/dL Calcium (8.5-10.1) mg/dL Total Bilirubin (0.2-1.0) mg/dL AST (15-37) U/L ALT (14-59) U/L Alkaline Phosphatase (46-116) U/L C-Reactive Protein (<1.0) mg/dL Total Protein (6.4-8.2) g/dl Albumin (3.4-5.0) g/dl Globulin gm/dL Albumin/Globulin Ratio (1-2) Urine Color (Yellow) Urine Appearance (Clear) Urine pH (5.0-8.0) Ur Specific [place] (1.005-1.030) Urine Protein (Negative) Urine Glucose (UA) (Negative) Urine Ketones (Negative) Urine Occult Blood (Negative) Urine Nitrite (Negative) Urine Bilirubin (Negative) Urine Urobilinogen (0.2-1.0) Ur Leukocyte Esterase (Negative) Urine RBC (0-5) /hpf Urine WBC (0-5) /hpf Ur Squamous Epith Cells (0-5) /hpf Urine Bacteria (FEW) /hpf Urine Mucus (FEW) /hpf SARS-CoV-2 RNA (RT-PCR) Negative (NEGATIVE) Meds: Medications Generic Name Dose Route Start Last Admin Trade Name Freq PRN Reason Stop Dose Admin Ceftriaxone Sodium 1 gm/ 0 gm 01/07/20 19:30 Lidocaine HCl 2.1 ml IM Q24H IVONNE - Re-Assessments/Exams Free Text/Narrative Re-Assessment/Exam: Florence presents with complaints of a KIRBY. She states she fell to her knees last night. She states she was able to crawl to her bed and get into bed. She does not remember striking her head but woke up this morning with a KIRBY on top right parietal scalp. Florence has a history of migraines and this is not like her migraine KIRBY. She has nausea, vomiting, and diarrhea chronically due to her chemo treatment for her lung cancer with mets to the liver. Her last chemo treatment was January 02, 2020. Florence had a scratchy throat yesterday. She states she was out at [facility] with her mask a few days ago. She was tested for COVID- 19 in November and which was negative. She noted that her temp at home was 100.6. We will obtain CBC,CMP, Strep, UA. 01/07/20 1647 01/07/20 17:10 01/07/20 17:13 Departure - Departure Disposition: Home, Self-Care 01 Clinical Impression: Fever Qualifiers: Fever type: unspecified Qualified Code(s): R50.9 - Fever, unspecified Lung cancer, primary, with metastasis from lung to other site Qualifiers: Laterality: right Qualified Code(s): C34.91 - Malignant neoplasm of unspecified part of right bronchus or lung Leukocytosis Qualifiers: Leukocytosis type: unspecified Qualified Code(s): D72.829 - Elevated white blood cell count, unspecified - Discharge Information Referrals: Ping Tamez MD [Primary Care Provider] - Forms: ED Department Discharge Additional Instructions: Take your medications as prescribed. We will call you with the culture results. Please return if you are worse. Sepsis Event Note - Evaluation Sepsis Screening Result: No Definite Risk - Focused Exam Vital Signs: Vital Signs Temp Pulse Resp BP Pulse Ox 01/07/20 18:39 100.6 F 79 18 102/53 L 98 01/07/20 16:54 100.2 F 80 20 105/50 L 99 01/07/20 15:53 100.3 F 81 18 109/50 L 99 Date Exam was Performed: 01/07/20 Time Exam was Performed: 16:33 - My Orders Last 24 Hours: My Active Orders 01/07/20 16:27 Cardiac Monitoring [RC] . DIRECTED 01/07/20 16:32 CULTURE STREP A CONFIRMATION [RM] Stat STREP SCRN A RAPID W CULT CONF [RM] Stat 01/07/20 17:46 Blood Culture x2 Reflex Set [OM.PC] Stat 01/07/20 18:30 CULTURE BLOOD [BC] Stat 01/07/20 18:38 CULTURE BLOOD [BC] Stat 01/07/20 19:30 cefTRIAXone 1 GM with Lidocaine 1% 2.1 ML IM cefTRIAXone [Rocephin] 1 gm Lidocaine 1% [Xylocaine 1%] 2.1 ml IM Q24H - Assessment/Plan Last 24 Hours: My Active Orders 01/07/20 16:27 Cardiac Monitoring [RC] . DIRECTED 01/07/20 16:32 CULTURE STREP A CONFIRMATION [] Stat STREP SCRN A RAPID W CULT CONF [] Stat 01/07/20 17:46 Blood Culture x2 Reflex Set [OM.PC] Stat 01/07/20 18:30 CULTURE BLOOD [BC] Stat 01/07/20 18:38 CULTURE BLOOD [BC] Stat 01/07/20 19:30 cefTRIAXone 1 GM with Lidocaine 1% 2.1 ML IM cefTRIAXone [Rocephin] 1 gm Lidocaine 1% [Xylocaine 1%] 2.1 ml IM Q24H <Dandre Solis - Last Filed: 01/07/20 19:34> ED EXAM, GENERAL - Physical Exam Exam: See Below Course - Orders/Labs/Meds Meds: Medications Generic Name Dose Route Start Last Admin Trade Name Rowan PRN Reason Stop Dose Admin Ceftriaxone Sodium 1 gm/ 0 gm 01/07/20 19:30 Lidocaine HCl 2.1 ml IM Q24H [facility] - Re-Assessments/Exams Free Text/Narrative Re-Assessment/Exam: 01/07/20 19:10 I examined the patient myself and I agree with Kiana's assessment and plan. 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 Largest finding measures 8.6mm. No acute intracranial abnormality is seen. Her WBC is elevated at 28.71. Her Hgb is low at 10.1. Her platelets are elevated at 454. Her Na is low at 127. Her K is low at 3.2. Her alk phos is elevated at 186. Her CRP is elevated at 24.9. Her UA shows no UTI. 01/07/20 19:30 I feel the increased WBC is from the neupogen she got. I will give her a shot of rocephin and discharge her home. I will follow up with her cultures and COVID 19. 01/07/20 19:33 Departure - Departure Time of Disposition: 19:35 Condition: Good - Discharge Information *PRESCRIPTION DRUG MONITORING PROGRAM REVIEWED*: Not Applicable *COPY OF PRESCRIPTION DRUG MONITORING REPORT IN PATIENT RUFINO: Not Applicable Sepsis Event Note - Focused Exam Date Exam was Performed: 01/07/20 Time Exam was Performed: 19:30
--- NOTE | 2020-01-07 18:18 | CT ---
Head CT Technique: Multiple axial sections through the brain were obtained. Intravenous contrast was not utilized. Comparison: No prior intracranial imaging is available. Findings: Ventricles along with basal cisterns and sulci over the convexities are within normal limits for the patient's age. No abnormal parenchymal densities are seen. No evidence of intracranial hemorrhage. No midline shift or mass-effect is seen. Bone window settings were reviewed. No acute calvarial finding is appreciated. Visualized mastoid sinuses and paranasal sinuses are clear. Several lucent lesions are seen within the right parietal scalp. Difficult to exclude metastatic lesions. Larger lesion shows mild soft tissue component within the scalp. Larger lesion measures 8.6 mm. Impression: 1. 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 Largest finding measures 8.6 mm. 2. No acute intracranial abnormality is seen. Diagnostic code #9 This report was dictated in MDT
--- NOTE | 2020-01-07 19:22 | CR ---
Chest: Portable supine view of the chest was obtained. Comparison: Prior chest CT study of 12/16/19 and chest x-ray of 12/06/19 and . Cavitary lesion is partially visualized within the right lung base. This appears stable from prior study. Slight increasing area of atelectasis is seen within the right lung base which appears more prominent than on prior exam. Diffuse emphysematous change is seen. No acute parenchymal change is otherwise noted. Right-sided infusion catheter is seen. Impression: 1. Cavitary lesion within the right lung base which is seen on previous studies. Mild increasing atelectasis within the right lung base adjacent to the cavitary lesion. 2. Emphysematous change. 3. No other acute abnormality is seen. Diagnostic code #3 This report was dictated in MDT
[2020-01-07] MEDS ORDERED: cefTRIAXone 1 GM, Lidocaine 1% 2.1 ML IM SCH ×2 (19:30)
== END 2020-01-07 19:47 | disposition home or self-care (01) ==
LOC: JD.ED 15:13
DX: R50.9 Fever, unspecified (principal); C34.91 Malignant neoplasm of unspecified part of right bronchus or lung; D72.829 Elevated white blood cell count, unspecified; C78.7 Secondary malignant neoplasm of liver and intrahepatic bile duct; J44.9 Chronic obstructive pulmonary disease, unspecified; M41.9 Scoliosis, unspecified; F41.9 Anxiety disorder, unspecified; F32.9 Major depressive disorder, single episode, unspecified; Z88.6 Allergy status to analgesic agent; Z79.899 Other long term (current) drug therapy; Z87.891 Personal history of nicotine dependence
CPT/HCPCS: 36415; 70450; 71045; 80053; 81001; 85025; 86140; 87040; 87081; 87430; 87635; 96372; 99284; J0696; J2001; U0002

== ENCOUNTER 2020-01-08 16:44 | Inpatient (IN) | payer MEDICAID ==
[2020-01-08] MEDS ORDERED: Lactated Ringers 1,000 ML IV SCH ×2 (17:30→20:45)
--- NOTE | 2020-01-08 17:52 | CR ---
Chest: Portable view of the chest was obtained. Comparison: Prior chest x-ray of 01/07/20. Heart size and mediastinum are normal. Cavitary lesion is seen within the right lung base which appears stable. No acute parenchymal change is seen. Right-sided infusion port is seen with tip appearing stable from prior study in location. Bony structures are grossly intact. Impression: 1. Findings as noted above believed to be stable. 2. Nothing acute is appreciated on portable chest x-ray. Diagnostic code #3 This report was dictated in MDT
--- NOTE | 2020-01-08 18:09 | EDM.PDOC ---
<Ania Cantrell - Last Filed: 01/08/20 20:46> ED HPI GENERAL MEDICAL PROBLEM - General Chief Complaint: Fever Stated Complaint: [facility] Time Seen by Provider: 01/08/20 17:39 Source of Information: Reports: Patient History Limitations: Reports: No Limitations - History of Present Illness INITIAL COMMENTS - FREE TEXT/NARRATIVE: The patient presents today with complaints of falling during the night, increased weakness, and fever of 102 at home and per EMS 103.6. She feels like she is having increased weakness and generally feels worse. She has chronic nausea and lightheadedness due to her chemo. She is having constipation. She now states she has a dry cough. She was seen in ED yesterday for complaints falling, fever, and weakness. Her WBC was 28.71. HgB was low at 10.1. Her platelets were elevated at 454. Her NA was low at 127. Her K is low at 3.2. Her CRP is elevated at 24.9. 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 Her CXR was clear. Her UA did not show a UTI. She was given Rocephin and discharged home. She is scheduled for a repeat CT January 21 or 2019. - Related Data Allergies Allergy/AdvReac Type Severity Reaction Status Date / Time ketorolac [From Toradol] AdvReac Severe Vomiting Verified 01/08/20 16:46 Home Meds: Home Meds traZODone HCl [Trazodone HCl] 150 mg PO BEDTIME 05/19/18 [History] Sertraline [Zoloft] 25 mg PO DAILY 08/14/19 [History] lamoTRIgine 150 mg PO BID 10/26/19 [History] Albuterol Sulfate [Albuterol Sulfate Hfa] 2 puff INH Q4H PRN 12/18/19 [History] Past Medical History HEENT History: Reports: Impaired Vision, Other (See Below) Other HEENT History: wears glasses Respiratory History: Reports: COPD, Other (See Below) Other Respiratory History: lung cancer, emphysema Gastrointestinal History: Reports: Hepatitis Other Gastrointestinal History: "cured for hepatitis C" Genitourinary History: Reports: None 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 Oncologic (Cancer) History: Reports: Liver, Lung, Metastatic Other Oncologic History: Last chemo-12/12/2019 Dermatologic History: Reports: Other (See Below) Other Dermatologic History: dry skin - Infectious Disease History Infectious Disease History: Reports: Chicken Pox, Hepatitis C Other Infectious Disease History: had treatment and now is clear since November. - Past Surgical History HEENT Surgical History: Reports: Oral Surgery Other HEENT Surgeries/Procedures: upper dentures, not here with pt Respiratory Surgical History: Reports: None GI Surgical History: Reports: Appendectomy, Cholecystectomy Female Surgical History: Reports: Hysterectomy Neurological Surgical History: Reports: None Musculoskeletal Surgical History: Reports: None Social & Family History - Family History Family Medical History: Noncontributory Cardiac: Reports: CAD Oncologic: Reports: Breast - Tobacco Use Smoking Status *Q: Former Smoker Used Tobacco, but Quit: Yes Month/Year Tobacco Last Used: 11/04/2019 - Caffeine Use Caffeine Use: Reports: None Other Caffeine Use: 2 cups a day sometimes 3 - Living Situation & Occupation Living situation: Reports: , with Family (Daughter, her 2 kids, and her boyfriend) Occupation: Disabled ED ROS GENERAL - Review of Systems Review Of Systems: See Below Constitutional: Reports: Fever, Malaise, Weakness, Fatigue. Denies: Chills, Decreased Appetite HEENT: Reports: No Symptoms Respiratory: Reports: Shortness of Breath (When getting up onto bed.), Cough ( nonproductive). Denies: Wheezing Cardiovascular: Reports: No Symptoms, Lightheadedness. Denies: Chest Pain, Edema, Palpitations Endocrine: Reports: Fatigue GI/Abdominal: Reports: Constipation, Nausea. Denies: Diarrhea, Vomiting : Reports: No Symptoms Musculoskeletal: Reports: No Symptoms Skin: Reports: No Symptoms Neurological: Reports: Headache, Weakness. Denies: Confusion, Dizziness Psychiatric: Denies: Agitation, Anxiety, Confusion Hematologic/Lymphatic: Reports: No Symptoms Immunologic: Reports: No Symptoms ED EXAM, SEPSIS - Physical Exam Exam Limited By: No Limitations General Appearance: Alert, WD/WN, No Apparent Distress, Other (Temp: 1006. Pulse : 90 Resp: 16 B/P 106/64 SpO2: 96%) Eye Exam: Bilateral Eye: Normal Inspection Ears: Normal External Exam, Normal Canal, Hearing Grossly Normal, Normal TMs Nose: Normal Inspection, Normal Mucosa, No Blood Throat/Mouth: Normal Inspection, Normal Lips, Normal Teeth, Normal Gums, Normal Oropharynx, Normal Voice, No Airway Compromise Head: Other (Soft tender area over right parietal area) Neck: Normal Inspection, Supple, Non-Tender, Full Range of Motion Respiratory/Chest: No Respiratory Distress, Lungs Clear, Normal Breath Sounds, No Accessory Muscle Use, Chest Non-Tender Cardiovascular: Normal Peripheral Pulses, Regular Rate, Rhythm, No Edema, No Gallop, No JVD, No Murmur, No Rub GI/Abdominal Exam: Normal Bowel Sounds, Soft, Non-Tender, No Organomegaly, No Distention, No Abnormal Bruit, No Mass, Pelvis Stable Back: Normal Inspection, Full Range of Motion, NT Extremities: Normal Inspection, Normal Range of Motion, Non-Tender, No Pedal Edema, Normal Capillary Refill Neurological: Alert, Oriented, CN II-XII Intact, Normal Cognition Psychiatric: Normal Affect, Normal Mood Skin: Warm, Dry, Intact, Normal Color, No Rash EKG INTERPRETATION EKG Date: 01/08/20 Time: 18:23 Rhythm: NSR Rate (Beats/Min): 88 [place]: Normal P-Wave: Enlarged (LAE) QRS: Normal ST-T: Normal QT: Normal Comparison: No Change (12/08/2019) Course - Vital Signs Last Recorded V/S: Last Vital Signs Temp 38.1 C 01/08/20 16:46 Pulse 90 01/08/20 16:46 Resp 16 01/08/20 16:46 BP 106/64 01/08/20 16:46 Pulse Ox 96 01/08/20 16:46 Orthostatic Blood Pressure [ 100/67 Standing] Orthostatic Blood Pressure [ 116/58 Supine] - Orders/Labs/Meds Orders: Active Orders 24 hr Category Date Time Status Patient Status [ADT] Routine ADT 01/08/20 21:39 Active Antiembolic Devices [RC] PER UNIT ROUTINE Care 01/08/20 21:42 Active EKG Documentation Completion [RC] STAT Care 01/08/20 18:05 Active Height and Weight [RC] DAILY Care 01/08/20 21:39 Active Intake and Output [RC] QSHIFT Care 01/08/20 21:40 Active Orthostatic Vital Signs [RC] STAT Care 01/08/20 18:24 Active Oxygen Therapy [RC] PRN Care 01/08/20 21:39 Active Up With Assistance [RC] ASDIRECTED Care 01/08/20 21:39 Active VTE/DVT Education [RC] PER UNIT ROUTINE Care 01/08/20 21:39 Active Vital Signs [RC] Q4H Care 01/08/20 21:39 Active Consult to Printer Assistant [CONS] Routine Cons 01/08/20 21:39 Active Regular Diet [DIET] Diet 01/09/20 Breakfast Active BASIC METABOLIC PANEL,BMP [CHEM] AM Lab 01/09/20 05:11 Ordered CBC WITH AUTO DIFF [HEME] AM Lab 01/09/20 05:11 Ordered CULTURE BLOOD [BC] Stat Lab 01/08/20 17:30 Received CULTURE BLOOD [BC] Stat Lab 01/08/20 17:45 Received MAGNESIUM [CHEM] AM Lab 01/09/20 05:11 Ordered PHOSPHORUS [CHEM] AM Lab 01/09/20 05:11 Ordered PROCALCITONIN [REF] Stat Lab 01/08/20 17:30 Received STREP PNEUMONIAE ANTIGEN [MREF] Stat Lab 01/08/20 22:45 Received Acetaminophen [Tylenol] Med 01/08/20 21:39 Active 650 mg PO Q4H PRN Ondansetron [Zofran ODT] Med 01/08/20 21:39 Active 4 mg PO Q6H PRN Ondansetron [Zofran] Med 01/08/20 21:39 Active 4 mg IV Q6H PRN Sodium Chloride 0.9% [Normal Saline] 1,000 ml Med 01/08/20 21:45 Active IV ASDIRECTED Antiembolic Hose [OM.PC] Per Unit Routine Oth 01/08/20 21:40 Ordered Blood Culture x2 Reflex Set [OM.PC] Stat Oth 01/08/20 17:15 Ordered Resuscitation Status Routine Resus Stat 01/08/20 21:39 Ordered Medication Orders Acetaminophen (Tylenol) 650 mg PO Q4H PRN PRN Reason: Pain (Mild 1-3)/fever Azithromycin (Zithromax) 500 mg PO DAILY [facility] Sodium Chloride (Normal Saline) 1,000 mls @ 125 mls/hr IV ASDIRECTED [facility] Ondansetron HCl (Zofran Odt) 4 mg PO Q6H PRN PRN Reason: nausea, able to take PO Ondansetron HCl (Zofran) 4 mg IV Q6H PRN PRN Reason: Nausea/Vomiting Labs: Laboratory Tests 01/08/20 01/08/20 01/08/20 Range/Units 17:13 17:30 17:30 WBC 24.80 H (3.98-10.04) K/mm3 RBC 2.97 L (3.98-5.22) M/mm3 Hgb 8.5 L D (11.2-15.7) gm/dl Hct 27.3 L (34.1-44.9) % MCV 91.9 (79.4-94.8) fl MCH 28.6 (25.6-32.2) pg MCHC 31.1 L (32.2-35.5) g/dl RDW Std Deviation 63.8 H (36.4-46.3) fL Plt Count 389 H (182-369) K/mm3 MPV 8.5 L (9.4-12.3) fl Neutrophils % (Manual) 88 H (40-60) % Band Neutrophils % 0 (0-10) % Lymphocytes % (Manual) 7 L (20-40) % Atypical Lymphs % 0 % Monocytes % (Manual) 4 (2-10) % Eosinophils % (Manual) 1 (0.7-5.8) % Basophils % (Manual) 0 L (0.1-1.2) Toxic Granulation Few Platelet Estimate Adequate Anisocytosis 2+ moderate Macrocytosis 1+ slight Ovalocytes 1+ slight RBC Morph Comment Not Reportable D-Dimer, Quantitative (0.19-0.50) mg/L Sodium 128 L (136-145) mEq/L Potassium 3.1 L (3.5-5.1) mEq/L Chloride 88 L (98-107) mEq/L Carbon Dioxide 29 (21-32) mEq/L Anion Gap 14.1 (5-15) BUN 15 (7-18) mg/dL Creatinine 0.7 (0.55-1.02) mg/dL Est Cr Clr Drug Dosing 69.08 mL/min Estimated GFR (MDRD) > 60 (>60) mL/min BUN/Creatinine Ratio 21.4 H (14-18) Glucose 111 H (74-106) mg/dL Lactic Acid (0.4-2.0) mmol/L Calcium 8.5 (8.5-10.1) mg/dL Magnesium (1.8-2.4) mg/dl Ferritin (8-252) ng/ml Total Bilirubin 0.3 (0.2-1.0) mg/dL AST 16 (15-37) U/L ALT 14 (14-59) U/L Alkaline Phosphatase 187 H (46-116) U/L Lactate Dehydrogenase 190 (81-234) U/L Troponin I < 0.017 (0.00-0.056) ng/mL C-Reactive Protein 19.1 H* (<1.0) mg/dL NT-Pro-B Natriuret Pep (0-125) pg/mL Total Protein 6.8 (6.4-8.2) g/dl Albumin 2.2 L (3.4-5.0) g/dl Globulin 4.6 gm/dL Albumin/Globulin Ratio 0.5 L (1-2) Mycoplasma pneumon IgM (NEGATIVE) SARS Virus RNA (PCR) (NEGATIVE) 01/08/20 01/08/20 01/08/20 Range/Units 17:30 17:30 17:30 WBC (3.98-10.04) K/mm3 RBC (3.98-5.22) M/mm3 Hgb (11.2-15.7) gm/dl Hct (34.1-44.9) % MCV (79.4-94.8) fl MCH (25.6-32.2) pg MCHC (32.2-35.5) g/dl RDW Std Deviation (36.4-46.3) fL Plt Count (182-369) K/mm3 MPV (9.4-12.3) fl Neutrophils % (Manual) (40-60) % Band Neutrophils % (0-10) % Lymphocytes % (Manual) (20-40) % Atypical Lymphs % % Monocytes % (Manual) (2-10) % Eosinophils % (Manual) (0.7-5.8) % Basophils % (Manual) (0.1-1.2) Toxic Granulation Platelet Estimate Anisocytosis Macrocytosis Ovalocytes RBC Morph Comment D-Dimer, Quantitative 0.88 H (0.19-0.50) mg/L Sodium (136-145) mEq/L Potassium (3.5-5.1) mEq/L Chloride (98-107) mEq/L Carbon Dioxide (21-32) mEq/L Anion Gap (5-15) BUN (7-18) mg/dL Creatinine (0.55-1.02) mg/dL Est Cr Clr Drug Dosing mL/min Estimated GFR (MDRD) (>60) mL/min BUN/Creatinine Ratio (14-18) Glucose (74-106) mg/dL Lactic Acid (0.4-2.0) mmol/L Calcium (8.5-10.1) mg/dL Magnesium (1.8-2.4) mg/dl Ferritin 1795 H (8-252) ng/ml Total Bilirubin (0.2-1.0) mg/dL AST (15-37) U/L ALT (14-59) U/L Alkaline Phosphatase (46-116) U/L Lactate Dehydrogenase (81-234) U/L Troponin I (0.00-0.056) ng/mL C-Reactive Protein (<1.0) mg/dL NT-Pro-B Natriuret Pep 243 H (0-125) pg/mL Total Protein (6.4-8.2) g/dl Albumin (3.4-5.0) g/dl Globulin gm/dL Albumin/Globulin Ratio (1-2) Mycoplasma pneumon IgM (NEGATIVE) SARS Virus RNA (PCR) (NEGATIVE) 01/08/20 01/08/20 01/08/20 Range/Units 17:30 17:30 17:30 WBC (3.98-10.04) K/mm3 RBC (3.98-5.22) M/mm3 Hgb (11.2-15.7) gm/dl Hct (34.1-44.9) % MCV (79.4-94.8) fl MCH (25.6-32.2) pg MCHC (32.2-35.5) g/dl RDW Std Deviation (36.4-46.3) fL Plt Count (182-369) K/mm3 MPV (9.4-12.3) fl Neutrophils % (Manual) (40-60) % Band Neutrophils % (0-10) % Lymphocytes % (Manual) (20-40) % Atypical Lymphs % % Monocytes % (Manual) (2-10) % Eosinophils % (Manual) (0.7-5.8) % Basophils % (Manual) (0.1-1.2) Toxic Granulation Platelet Estimate Anisocytosis Macrocytosis Ovalocytes RBC Morph Comment D-Dimer, Quantitative (0.19-0.50) mg/L Sodium (136-145) mEq/L Potassium (3.5-5.1) mEq/L Chloride (98-107) mEq/L Carbon Dioxide (21-32) mEq/L Anion Gap (5-15) BUN (7-18) mg/dL Creatinine (0.55-1.02) mg/dL Est Cr Clr Drug Dosing mL/min Estimated GFR (MDRD) (>60) mL/min BUN/Creatinine Ratio (14-18) Glucose (74-106) mg/dL Lactic Acid 1.6 (0.4-2.0) mmol/L Calcium (8.5-10.1) mg/dL Magnesium 1.6 L (1.8-2.4) mg/dl Ferritin (8-252) ng/ml Total Bilirubin (0.2-1.0) mg/dL AST (15-37) U/L ALT (14-59) U/L Alkaline Phosphatase (46-116) U/L Lactate Dehydrogenase (81-234) U/L Troponin I (0.00-0.056) ng/mL C-Reactive Protein (<1.0) mg/dL NT-Pro-B Natriuret Pep (0-125) pg/mL Total Protein (6.4-8.2) g/dl Albumin (3.4-5.0) g/dl Globulin gm/dL Albumin/Globulin Ratio (1-2) Mycoplasma pneumon IgM Positive H (NEGATIVE) SARS Virus RNA (PCR) (NEGATIVE) 01/08/20 Range/Units 19:58 WBC (3.98-10.04) K/mm3 RBC (3.98-5.22) M/mm3 Hgb (11.2-15.7) gm/dl Hct (34.1-44.9) % MCV (79.4-94.8) fl MCH (25.6-32.2) pg MCHC (32.2-35.5) g/dl RDW Std Deviation (36.4-46.3) fL Plt Count (182-369) K/mm3 MPV (9.4-12.3) fl Neutrophils % (Manual) (40-60) % Band Neutrophils % (0-10) % Lymphocytes % (Manual) (20-40) % Atypical Lymphs % % Monocytes % (Manual) (2-10) % Eosinophils % (Manual) (0.7-5.8) % Basophils % (Manual) (0.1-1.2) Toxic Granulation Platelet Estimate Anisocytosis Macrocytosis Ovalocytes RBC Morph Comment D-Dimer, Quantitative (0.19-0.50) mg/L Sodium (136-145) mEq/L Potassium (3.5-5.1) mEq/L Chloride (98-107) mEq/L Carbon Dioxide (21-32) mEq/L Anion Gap (5-15) BUN (7-18) mg/dL Creatinine (0.55-1.02) mg/dL Est Cr Clr Drug Dosing mL/min Estimated GFR (MDRD) (>60) mL/min BUN/Creatinine Ratio (14-18) Glucose (74-106) mg/dL Lactic Acid (0.4-2.0) mmol/L Calcium (8.5-10.1) mg/dL Magnesium (1.8-2.4) mg/dl Ferritin (8-252) ng/ml Total Bilirubin (0.2-1.0) mg/dL AST (15-37) U/L ALT (14-59) U/L Alkaline Phosphatase (46-116) U/L Lactate Dehydrogenase (81-234) U/L Troponin I (0.00-0.056) ng/mL C-Reactive Protein (<1.0) mg/dL NT-Pro-B Natriuret Pep (0-125) pg/mL Total Protein (6.4-8.2) g/dl Albumin (3.4-5.0) g/dl Globulin gm/dL Albumin/Globulin Ratio (1-2) Mycoplasma pneumon IgM (NEGATIVE) SARS Virus RNA (PCR) Negative (NEGATIVE) Meds: Medications Generic Name Dose Route Start Last Admin Trade Name Freq PRN Reason Stop Dose Admin Acetaminophen 650 mg 01/08/20 21:39 Tylenol PO Q4H PRN Pain (Mild 1-3)/fever Azithromycin 500 mg 01/08/20 22:00 Zithromax PO DAILY [facility] Sodium Chloride 1,000 mls @ 125 mls/hr 01/08/20 21:45 Normal Saline IV ASDIRECTED [facility] Ondansetron HCl 4 mg 01/08/20 21:39 Zofran Odt PO Q6H PRN nausea, able to take PO Ondansetron HCl 4 mg 01/08/20 21:39 Zofran IV Q6H PRN Nausea/Vomiting Discontinued Medications Generic Name Dose Route Start Last Admin Trade Name Roawn PRN Reason Stop Dose Admin Lactated Ringer's 1,000 mls @ 150 mls/hr 01/08/20 17:30 01/08/20 20:50 Ringers, Lactated IV 125 mls/hr ASDIRECTED [facility] Infusion Magnesium Sulfate 2 gm/ Premix 50 mls @ 25 mls/hr 01/08/20 20:31 01/08/20 20: 49 IV 01/08/20 22:30 25 mls/hr ONETIME ONE Administration Lactated Ringer's 1,000 mls @ 125 mls/hr 01/08/20 20:45 Ringers, Lactated IV ASDIRECTED [facility] - Re-Assessments/Exams Free Text/Narrative Re-Assessment/Exam: 01/08/20 17:45 The patient presents today with complaints of falling during the night, increased weakness, and fever of 102 at home and per EMS 103.6. She feels like she is having increased weakness and generally feels worse. She has chronic nausea and lightheadedness due to her chemo. She is having constipation. She now states she has a dry cough. She was seen in ED yesterday for complaints falling, fever, and weakness. We will do a septic work up and COVID-19 work up for possible admission. Labs ordered a lactic acid, CBC, CMP, CRP, Blood cultures x 2, D-Dimer, LDH, Ferritin, BNP and a CXR. 01/08/20 18:08 Patient is now complaining of left sided chest pain with no radiation. No further change in status. She has no increased SOB or nausea. 01/08/20 18:25. Patient's EKG unremarkable. 01/08/20 20:46 Departure - Departure Disposition: Refer to Observation Clinical Impression: Hypomagnesemia, Hypokalemia, Hyponatremia, Generalized weakness, Fall at home, Anemia - Discharge Information Sepsis Event Note - Evaluation Sepsis Screening Result: No Definite Risk - Focused Exam Vital Signs: Vital Signs Temp Pulse Resp BP Pulse Ox 01/08/20 16:46 38.1 C 90 16 106/64 96 Date Exam was Performed: 01/08/20 Time Exam was Performed: 20:46 - My Orders Last 24 Hours: My Active Orders 01/08/20 18:24 Orthostatic Vital Signs [RC] STAT - Assessment/Plan Last 24 Hours: My Active Orders 01/08/20 18:24 Orthostatic Vital Signs [RC] STAT <Crow Cantrell - Last Filed: 01/08/20 23:04> ED EXAM, SEPSIS - Physical Exam Exam: See Below Course - Re-Assessments/Exams Free Text/Narrative Re-Assessment/Exam: 01/08/20 18:41 I evaluated and examined the patient with Ania Cantrell RN, and I agree with her assessment thus far. A work-up is in progress. I have added orthostatics and a magnesium level. 01/08/20 19:38 The patient is not orthostatic. Portable chest radiograph reviewed. The cardiac silhouette is within normal limits. No pulmonary vascular congestion. No pleural effusions, although there is subtle blunting of the left costophrenic angle, most likely due to pleural thickening. No pneumothorax. There is an infiltrate in the right middle lobe that most likely represents the patient's previously diagnosed lung cancer. Subtle thoracic scoliosis versus positioning. Formal read per the Radiologist pending. Not all of the patient's labs have returned, however, her ferritin is elevated, which is somewhat concerning for COVID-19, although how we can interpret markers of COVID-19 in the setting of cancer with chemotherapy is unknown, therefore I have ordered a rapid COVID-19 test. 01/08/20 20:35 The patient has been complaining of some left-sided chest discomfort. I have ordered a troponin. The patient CBC is remarkable for a WBC count elevated at 24.80, but with 0% bandemia. Her H/H is depressed at 8.5/27.3. Her platelets are elevated at 389, 000. Her CMP is remarkable for a sodium depressed at 128, and a potassium depressed at 3.1. Her blood glucose is slightly elevated at 111, with the remainder of her CMP being unremarkable. Her magnesium level is depressed at 1.6. Her BNP is slightly elevated at 243. Her lactic acid level is within normal limits at 1.6. Her LDH is within normal limits at 190. Her ferritin is elevated at 1795. Her CRP is elevated at 19.1. Her D-dimer is mildly elevated at 0.88. The SARS-CoV-2 virus test is still pending. Based on the above, I have ordered a 2 g Mg-rider. I have decreased her LR from 150 mL/h to 125 mL/h. Case discussed with Dr. Jay here in the ED, and she is accepted the patient for placement into observation. 01/08/20 21:12 The patient's troponin has returned undetectably low. Her SARS-CoV-2 virus test returned negative. Departure - Departure Time of Disposition: 20:41 Condition: Good - Discharge Information *PRESCRIPTION DRUG MONITORING PROGRAM REVIEWED*: Not Applicable *COPY OF PRESCRIPTION DRUG MONITORING REPORT IN PATIENT RUFINO: Not Applicable Sepsis Event Note - Focused Exam Date Exam was Performed: 01/08/20 Time Exam was Performed: 23:04
[2020-01-08] MEDS ORDERED: Magnesium Sulfate/Water 2 GM in Premix Bag 1 BAG IV ONE (20:31)
--- NOTE | 2020-01-08 21:15 | PCM.HP.2 ---
H&P History of Present Illness - General Date of Service: 01/08/20 - History of Present Illness Initial Comments - Free Text/Narative: This is a 54-year-old female with past medical history of advanced lung cancer currently getting chemotherapy who came to hospital brought by EMS for fever. 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 This morning patient noted head was still hurting and she also found to have a fever of 102 did not take any medications just called the ambulance and was brought here. Positive for dry cough, constipation (taking miralax BM every 3-7 days) Denies diarrhea, abdominal pain, no skin rash, painful urination, nausea, vomiting, no sick contacts but roommate does not follow social distancing and coughs a lot, yet hasn't been tested. - Related Data Allergies/Adverse Reactions: Allergies Allergy/AdvReac Type Severity Reaction Status Date / Time ketorolac [From Toradol] AdvReac Severe Vomiting Verified 01/08/20 16:46 Home Medications: Home Meds traZODone HCl [Trazodone HCl] 150 mg PO BEDTIME 05/19/18 [History] Sertraline [Zoloft] 25 mg PO DAILY 08/14/19 [History] lamoTRIgine 150 mg PO BID 10/26/19 [History] Albuterol Sulfate [Albuterol Sulfate Hfa] 2 puff INH Q4H PRN 12/18/19 [History] traMADol HCl [Tramadol HCl] 50 mg PO Q6H PRN 01/07/20 [History] Past Medical History HEENT History: Reports: Impaired Vision, Other (See Below) Other HEENT History: wears glasses Respiratory History: Reports: COPD, Other (See Below) Other Respiratory History: lung cancer, emphysema Gastrointestinal History: Reports: Hepatitis Other Gastrointestinal History: "cured for hepatitis C" Genitourinary History: Reports: None CONTACT REPRESENTATIVE History: Reports: Other OB/BYN History: partial hysterectomy, vaginal x 3 deliveries Musculoskeletal History: Reports: Osteoarthritis Other Musculoskeletal History: and scoliosis of the spine Neurological History: Reports: Migraines, Seizure Psychiatric History: Reports: Anxiety, Depression, Suicide Attempt Immunologic History: Reports: Other (See Below) Other Immunologic History: Hep C- cured? Oncologic (Cancer) History: Reports: Liver, Lung, Metastatic Other Oncologic History: Last chemo-12/12/2019 Dermatologic History: Reports: Other (See Below) Other Dermatologic History: dry skin - Infectious Disease History Infectious Disease History: Reports: Chicken Pox, Hepatitis C Other Infectious Disease History: had treatment and now is clear since November. - Past Surgical History HEENT Surgical History: Reports: Oral Surgery Other HEENT Surgeries/Procedures: upper dentures, not here with pt Respiratory Surgical History: Reports: None GI Surgical History: Reports: Appendectomy, Cholecystectomy Female Surgical History: Reports: Hysterectomy Neurological Surgical History: Reports: None Musculoskeletal Surgical History: Reports: None Social & Family History - Family History Family Medical History: Noncontributory Cardiac: Reports: CAD Oncologic: Reports: Breast - Tobacco Use Smoking Status *Q: Former Smoker Used Tobacco, but Quit: Yes Month/Year Tobacco Last Used: 11/04/2019 - Caffeine Use Caffeine Use: Reports: None Other Caffeine Use: 2 cups a day sometimes 3 - Living Situation & Occupation Living situation: Reports: , with Family (Daughter, her 2 kids, and her boyfriend) Occupation: Disabled H&P Review of Systems - Review of Systems: Review Of Systems: See Below General: Reports: Fever, Malaise, Weakness, Fatigue, Decreased Appetite, Weight Loss. Denies: Chills, Night Sweats, Diaphoresis HEENT: Denies: Post Nasal Drip, Sinus Congestion, Sore Throat, Vertigo, Visual Changes Pulmonary: Reports: Cough. Denies: Shortness of Breath, Wheezing, Pleuritic Chest Pain, Sputum, Hemoptysis Cardiovascular: Denies: Chest Pain, Palpitations, Dyspnea on Exertion, Orthopnea , PND, Edema, Lightheadedness, Syncope, Claudication Gastrointestinal: Reports: Constipation, Decreased Appetite. Denies: Abdominal Pain, Anorexia, Diarrhea, Distension, Nausea, Vomiting Genitourinary: Denies: Dysuria, Frequency, Burning, Pain, Urgency, Incontinence Musculoskeletal: Denies: Joint Pain, Joint Swelling, Muscle Pain, Muscle Stiffness Skin: Denies: Cyanosis, Jaundice, Mottled, Pallor Psychiatric: Reports: Depression, Anxiety. Denies: Mood Lability Neurological: Reports: Dizziness, Headache, Weakness. Denies: Numbness, Paresthesia Exam - Exam Exam: See Below - Vital Signs Vital Signs: Last Vital Signs Temp 100.6 F 01/08/20 16:46 Pulse 90 01/08/20 16:46 Resp 16 01/08/20 16:46 BP 106/64 01/08/20 16:46 Pulse Ox 96 01/08/20 16:46 Orthostatic Blood Pressure [ 100/67 Standing] Orthostatic Blood Pressure [ 116/58 Supine] Weight: 47.627 kg - Exam General: Alert, Oriented, Cooperative, Other (Severely cachectic, bitemporal wasting and eyes are sunken in) HEENT: Hearing Intact, Mucosa Moist & [place], Pupils Equal, Pupils Reactive. No: Rhinitis Neck: Supple, Trachea Midline, Full Range of Motion. No: Lymphadenopathy, Carotid Bruit Lungs: Clear to Auscultation, Normal Respiratory Effort. No: Decreased Breath Sounds, Crackles, Rales, Rhonchi, Rub, Stridor, Wheezing Cardiovascular: Regular Rate, Regular Rhythm. No: Systolic Murmur, Diastolic Murmur, Gallop/S3, Gallop/S4 GI/Abdominal Exam: Normal Bowel Sounds, Soft, Non-Tender. No: Distended, Guarding, Rigid, Rebound Back Exam: Normal Inspection, Other (Intercostal muscle wasting) Extremities: Normal Inspection, Normal Range of Motion, No Pedal Edema, Slow Capillary Refill Skin: Dry Neuro Extensive - Mental Status: Alert, Oriented x3 - Patient Data Result Diagrams: 01/08/20 17:30 01/08/20 17:30 Sepsis Event Note - Evaluation Sepsis Screening Result: No Definite Risk - Focused Exam Vital Signs: Vital Signs Temp Pulse Resp BP Pulse Ox 01/08/20 16:46 100.6 F 90 16 106/64 96 Date Exam was Performed: 01/08/20 Time Exam was Performed: 21:31 - Problem List (1) Hypoalbuminemia due to protein-calorie malnutrition SNOMED Code(s): 73363266678727 ICD Code: E88.09 - OTH DISORDERS OF PLASMA-PROTEIN METABOLISM, NEC; E46 - UNSPECIFIED PROTEIN-CALORIE MALNUTRITION Status: Acute Current Visit: Yes (2) Protein-calorie malnutrition SNOMED Code(s): 663991138 ICD Code: E46 - UNSPECIFIED PROTEIN-CALORIE MALNUTRITION Status: Acute Current Visit: Yes (3) Anemia SNOMED Code(s): 399350989 ICD Code: D64.9 - ANEMIA, UNSPECIFIED Status: Acute Current Visit: Yes (4) Constipation SNOMED Code(s): 52338137 ICD Code: K59.00 - CONSTIPATION, UNSPECIFIED Status: Acute Current Visit : No Qualifiers: Constipation type: unspecified constipation type Qualified Code(s): K59.00 - Constipation, unspecified (5) Depression SNOMED Code(s): 95094686 ICD Code: F32.9 - MAJOR DEPRESSIVE DISORDER, SINGLE EPISODE, UNSPECIFIED Status: Chronic Priority: Low Current Visit: No Qualifiers: Depression Type: other depression Qualified Code(s): F32.89 - Other specified depressive episodes (6) Fall at home SNOMED Code(s): 12703598 ICD Code: W19.XXXA - UNSPECIFIED FALL, INITIAL ENCOUNTER; Y92.009 - UNSP PLACE IN UNSP NON-INSTITUT (PRIVATE) RESIDENCE PLACE Status: Acute Current Visit: Yes (7) Fever SNOMED Code(s): 615607766 ICD Code: R50.9 - FEVER, UNSPECIFIED Status: Acute Current Visit: No Qualifiers: Fever type: unspecified Qualified Code(s): R50.9 - Fever, unspecified (8) Generalized weakness SNOMED Code(s): 07595937 ICD Code: R53.1 - WEAKNESS Status: Acute Current Visit: Yes (9) Hypokalemia SNOMED Code(s): 71814241 ICD Code: E87.6 - HYPOKALEMIA Status: Acute Current Visit: Yes (10) Hypomagnesemia SNOMED Code(s): 484256301 ICD Code: E83.42 - HYPOMAGNESEMIA Status: Acute Current Visit: Yes (11) Hyponatremia SNOMED Code(s): 70692051 ICD Code: E87.1 - HYPO-OSMOLALITY AND HYPONATREMIA Status: Acute Current Visit: Yes (12) Immunocompromised state SNOMED Code(s): 466488895 ICD Code: D89.9 - DISORDER INVOLVING THE IMMUNE MECHANISM, UNSPECIFIED Status: Chronic Priority: Medium Current Visit: No (13) Leukocytosis SNOMED Code(s): 173937662, 242504893 ICD Code: D72.829 - ELEVATED WHITE BLOOD CELL COUNT, UNSPECIFIED Status: Acute Priority: High Current Visit: No Qualifiers: Leukocytosis type: unspecified Qualified Code(s): D72.829 - Elevated white blood cell count, unspecified (14) Lung cancer SNOMED Code(s): 279887577 ICD Code: C34.90 - MALIGNANT NEOPLASM OF UNSP PART OF UNSP BRONCHUS OR LUNG Status: Acute Current Visit: No Qualifiers: Laterality: right Lung location: unspecified part of lung Qualified Code( s): C34.91 - Malignant neoplasm of unspecified part of right bronchus or lung Problem List Initiated/Reviewed/Updated: Yes Assessment/Plan Comment:: ASSESSMENT -Patient came in complaining of fever, documented at home at 102, in route by EMS of 103 and 100.6. -Denies any urinary, gastrointestinal, skin symptoms -Does endorse dry cough, however states that this is an intermittent problem -Is currently receiving chemotherapy for her lung cancer with Keytruda last chemotherapy session was on 01/01 next one on 01/22 -Labs -Significant leukocytosis with neutrophilia and no bandemia -Elevated ferritin and CRP -Chest x-ray without any changes from previous studies -Hb at baseline -Hyponatremia, hypokalemia and hypomagnesemia -hypoalbuminemia -A lot of the lab test might be abnormal secondary to chemotherapy, he does not seem to be an active infection -Will work up for atypical pneumonia and start azithromycin -As for the falls patient has been loosing significant amount of weight so vitamin levels will be drawn Fever Leukocytosis with neutrophilia Immunocompromised state Metastatic advanced lung cancer - Panculture if febrile - Procalcitonin stat - Mycoplasma and strep. pneumo serology - Start Azithromycin - Request records from [facility] Hypokalemia Hypomagnesemia Hyponatremia - KCL replaced in ED - 2g MgSO4 - NS at 125 - Repeat labs in AM Fall at home Generalized weakness Hypoalbuminemia due to protein-calorie malnutrition - Vitamin B 12, folic acid, vitamin D level - Dietary evaluation Constipation - Home bowel regimen Depression - Continue home medications PROPHYLAXIS: DVT- compression stockings GI- not indicated CODE STATUS: FULL CODE DISPOSITION: Patient will be admitted to medical floor for electrolyte replacement and monitoring for return of temperature, following up cultures. - Mortality Measure Prognosis:: Poor
[2020-01-08] MEDS ORDERED: Ondansetron 4 MG/2 ML SDV IV PRN (21:39)
[2020-01-08] MEDS ORDERED: Ondansetron 4 MG Tab.DIS PO PRN (21:39)
[2020-01-08] MEDS: Azithromycin 250 MG Tab PO SCH (23:12)
[2020-01-08] MEDS: Sodium Chloride 0.9% 1,000 ML IV SCH (23:15)
[2020-01-09] MEDS ORDERED: Albuterol 6.7 GM Inhaler INH PRN (00:04)
[2020-01-09] MEDS ORDERED: traZODone 50 MG Tab PO ONE ×2 (00:06→00:30)
[2020-01-09] MEDS: Acetaminophen 325 MG Tab PO PRN ×2 (05:11→14:13)
[2020-01-09] MEDS: Sodium Chloride 0.9% 1,000 ML IV SCH ×2 (07:04→16:53)
[2020-01-09] MEDS: lamoTRIgine 100 MG Tab PO SCH ×2 (08:38→20:35)
[2020-01-09] MEDS: Sertraline 25 MG Tab PO SCH (08:39)
[2020-01-09] MEDS: Azithromycin 250 MG Tab PO SCH (08:39)
--- NOTE | 2020-01-09 08:42 | PCM.PN ---
- General Info Date of Service: 01/09/20 Subjective Update: Reports she feels much better Last BM on the 16 Slept pretty well. No patient concerns. Functional Status: Reports: Pain Controlled, Tolerating Diet, Ambulating, Urinating. Denies: New Symptoms - Review of Systems General: Reports: Weakness (improving ). Denies: Fever, Fatigue, Malaise, Chills HEENT: Denies: Headaches Pulmonary: Reports: Cough. Denies: Shortness of Breath, Sputum, Wheezing Cardiovascular: Reports: Dyspnea on Exertion. Denies: Chest Pain, Palpitations , Edema Gastrointestinal: Reports: Constipation. Denies: Abdominal Pain, Diarrhea, Nausea, Vomiting Genitourinary: Reports: No Symptoms. Denies: Pain Musculoskeletal: Reports: No Symptoms Skin: Reports: No Symptoms Neurological: Reports: No Symptoms. Denies: Confusion, Difficulty Walking, Weakness, Gait Disturbance Psychiatric: Reports: No Symptoms - Patient Data Vitals - Most Recent: Last Vital Signs Temp 99.3 F 01/09/20 03:27 Pulse 74 01/09/20 03:27 Resp 16 01/09/20 03:27 BP 93/49 L 01/09/20 03:27 Pulse Ox 96 01/09/20 03:27 Orthostatic Blood Pressure [ 100/67 Standing] Orthostatic Blood Pressure [ 116/58 Supine] Weight - Most Recent: 99 lb 12.8 oz I&O - Last 24 Hours: Intake & Output 01/08/20 01/09/20 01/09/20 22:59 06:59 14:59 Intake Total 762 Output Total 1200 Balance -438 Lab Results Last 24 Hours: Laboratory Results - last 24 hr 01/08/20 01/08/20 01/08/20 Range/Units 17:13 17:30 17:30 WBC 24.80 H (3.98-10.04) K/mm3 RBC 2.97 L (3.98-5.22) M/mm3 Hgb 8.5 L D (11.2-15.7) gm/dl Hct 27.3 L (34.1-44.9) % MCV 91.9 (79.4-94.8) fl MCH 28.6 (25.6-32.2) pg MCHC 31.1 L (32.2-35.5) g/dl RDW Std Deviation 63.8 H (36.4-46.3) fL Plt Count 389 H (182-369) K/mm3 MPV 8.5 L (9.4-12.3) fl Neut % (Auto) (34.0-71.1) % Lymph % (Auto) (19.3-51.7) % Wolfe % (Auto) (4.7-12.5) % Eos % (Auto) (0.7-5.8) Baso % (Auto) (0.1-1.2) % Neut # (Auto) (1.56-6.13) K/mm3 Lymph # (Auto) (1.18-3.74) K/mm3 Wolfe # (Auto) (0.24-0.36) K/mm3 Eos # (Auto) (0.04-0.36) K/mm3 Baso # (Auto) (0.01-0.08) K/mm3 Neutrophils % (Manual) 88 H (40-60) % Band Neutrophils % 0 (0-10) % Lymphocytes % (Manual) 7 L (20-40) % Atypical Lymphs % 0 % Monocytes % (Manual) 4 (2-10) % Eosinophils % (Manual) 1 (0.7-5.8) % Basophils % (Manual) 0 L (0.1-1.2) Manual Slide Review Toxic Granulation Few Platelet Estimate Adequate Anisocytosis 2+ moderate Macrocytosis 1+ slight Ovalocytes 1+ slight RBC Morph Comment Not Reportable D-Dimer, Quantitative (0.19-0.50) mg/L Sodium 128 L (136-145) mEq/L Potassium 3.1 L (3.5-5.1) mEq/L Chloride 88 L (98-107) mEq/L Carbon Dioxide 29 (21-32) mEq/L Anion Gap 14.1 (5-15) BUN 15 (7-18) mg/dL Creatinine 0.7 (0.55-1.02) mg/dL Est Cr Clr Drug Dosing 69.08 mL/min Estimated GFR (MDRD) > 60 (>60) mL/min BUN/Creatinine Ratio 21.4 H (14-18) Glucose 111 H (74-106) mg/dL Lactic Acid (0.4-2.0) mmol/L Calcium 8.5 (8.5-10.1) mg/dL Phosphorus (2.6-4.7) mg/dL Magnesium (1.8-2.4) mg/dl Ferritin (8-252) ng/ml Total Bilirubin 0.3 (0.2-1.0) mg/dL AST 16 (15-37) U/L ALT 14 (14-59) U/L Alkaline Phosphatase 187 H (46-116) U/L Lactate Dehydrogenase 190 (81-234) U/L Troponin I < 0.017 (0.00-0.056) ng/mL C-Reactive Protein 19.1 H* (<1.0) mg/dL NT-Pro-B Natriuret Pep (0-125) pg/mL Total Protein 6.8 (6.4-8.2) g/dl Albumin 2.2 L (3.4-5.0) g/dl Globulin 4.6 gm/dL Albumin/Globulin Ratio 0.5 L (1-2) Mycoplasma pneumon IgM (NEGATIVE) SARS Virus RNA (PCR) (NEGATIVE) 01/08/20 01/08/20 01/08/20 Range/Units 17:30 17:30 17:30 WBC (3.98-10.04) K/mm3 RBC (3.98-5.22) M/mm3 Hgb (11.2-15.7) gm/dl Hct (34.1-44.9) % MCV (79.4-94.8) fl MCH (25.6-32.2) pg MCHC (32.2-35.5) g/dl RDW Std Deviation (36.4-46.3) fL Plt Count (182-369) K/mm3 MPV (9.4-12.3) fl Neut % (Auto) (34.0-71.1) % Lymph % (Auto) (19.3-51.7) % Wolfe % (Auto) (4.7-12.5) % Eos % (Auto) (0.7-5.8) Baso % (Auto) (0.1-1.2) % Neut # (Auto) (1.56-6.13) K/mm3 Lymph # (Auto) (1.18-3.74) K/mm3 Wolfe # (Auto) (0.24-0.36) K/mm3 Eos # (Auto) (0.04-0.36) K/mm3 Baso # (Auto) (0.01-0.08) K/mm3 Neutrophils % (Manual) (40-60) % Band Neutrophils % (0-10) % Lymphocytes % (Manual) (20-40) % Atypical Lymphs % % Monocytes % (Manual) (2-10) % Eosinophils % (Manual) (0.7-5.8) % Basophils % (Manual) (0.1-1.2) Manual Slide Review Toxic Granulation Platelet Estimate Anisocytosis Macrocytosis Ovalocytes RBC Morph Comment D-Dimer, Quantitative 0.88 H (0.19-0.50) mg/L Sodium (136-145) mEq/L Potassium (3.5-5.1) mEq/L Chloride (98-107) mEq/L Carbon Dioxide (21-32) mEq/L Anion Gap (5-15) BUN (7-18) mg/dL Creatinine (0.55-1.02) mg/dL Est Cr Clr Drug Dosing mL/min Estimated GFR (MDRD) (>60) mL/min BUN/Creatinine Ratio (14-18) Glucose (74-106) mg/dL Lactic Acid (0.4-2.0) mmol/L Calcium (8.5-10.1) mg/dL Phosphorus (2.6-4.7) mg/dL Magnesium (1.8-2.4) mg/dl Ferritin 1795 H (8-252) ng/ml Total Bilirubin (0.2-1.0) mg/dL AST (15-37) U/L ALT (14-59) U/L Alkaline Phosphatase (46-116) U/L Lactate Dehydrogenase (81-234) U/L Troponin I (0.00-0.056) ng/mL C-Reactive Protein (<1.0) mg/dL NT-Pro-B Natriuret Pep 243 H (0-125) pg/mL Total Protein (6.4-8.2) g/dl Albumin (3.4-5.0) g/dl Globulin gm/dL Albumin/Globulin Ratio (1-2) Mycoplasma pneumon IgM (NEGATIVE) SARS Virus RNA (PCR) (NEGATIVE) 01/08/20 01/08/20 01/08/20 Range/Units 17:30 17:30 17:30 WBC (3.98-10.04) K/mm3 RBC (3.98-5.22) M/mm3 Hgb (11.2-15.7) gm/dl Hct (34.1-44.9) % MCV (79.4-94.8) fl MCH (25.6-32.2) pg MCHC (32.2-35.5) g/dl RDW Std Deviation (36.4-46.3) fL Plt Count (182-369) K/mm3 MPV (9.4-12.3) fl Neut % (Auto) (34.0-71.1) % Lymph % (Auto) (19.3-51.7) % Wolfe % (Auto) (4.7-12.5) % Eos % (Auto) (0.7-5.8) Baso % (Auto) (0.1-1.2) % Neut # (Auto) (1.56-6.13) K/mm3 Lymph # (Auto) (1.18-3.74) K/mm3 Wolfe # (Auto) (0.24-0.36) K/mm3 Eos # (Auto) (0.04-0.36) K/mm3 Baso # (Auto) (0.01-0.08) K/mm3 Neutrophils % (Manual) (40-60) % Band Neutrophils % (0-10) % Lymphocytes % (Manual) (20-40) % Atypical Lymphs % % Monocytes % (Manual) (2-10) % Eosinophils % (Manual) (0.7-5.8) % Basophils % (Manual) (0.1-1.2) Manual Slide Review Toxic Granulation Platelet Estimate Anisocytosis Macrocytosis Ovalocytes RBC Morph Comment D-Dimer, Quantitative (0.19-0.50) mg/L Sodium (136-145) mEq/L Potassium (3.5-5.1) mEq/L Chloride (98-107) mEq/L Carbon Dioxide (21-32) mEq/L Anion Gap (5-15) BUN (7-18) mg/dL Creatinine (0.55-1.02) mg/dL Est Cr Clr Drug Dosing mL/min Estimated GFR (MDRD) (>60) mL/min BUN/Creatinine Ratio (14-18) Glucose (74-106) mg/dL Lactic Acid 1.6 (0.4-2.0) mmol/L Calcium (8.5-10.1) mg/dL Phosphorus (2.6-4.7) mg/dL Magnesium 1.6 L (1.8-2.4) mg/dl Ferritin (8-252) ng/ml Total Bilirubin (0.2-1.0) mg/dL AST (15-37) U/L ALT (14-59) U/L Alkaline Phosphatase (46-116) U/L Lactate Dehydrogenase (81-234) U/L Troponin I (0.00-0.056) ng/mL C-Reactive Protein (<1.0) mg/dL NT-Pro-B Natriuret Pep (0-125) pg/mL Total Protein (6.4-8.2) g/dl Albumin (3.4-5.0) g/dl Globulin gm/dL Albumin/Globulin Ratio (1-2) Mycoplasma pneumon IgM Positive H (NEGATIVE) SARS Virus RNA (PCR) (NEGATIVE) 01/08/20 01/09/20 01/09/20 Range/Units 19:58 05:40 05:40 WBC 17.18 H (3.98-10.04) K/mm3 RBC 2.92 L (3.98-5.22) M/mm3 Hgb 8.1 L (11.2-15.7) gm/dl Hct 26.8 L (34.1-44.9) % MCV 91.8 (79.4-94.8) fl MCH 27.7 (25.6-32.2) pg MCHC 30.2 L (32.2-35.5) g/dl RDW Std Deviation 63.9 H (36.4-46.3) fL Plt Count 364 (182-369) K/mm3 MPV 8.6 L (9.4-12.3) fl Neut % (Auto) 84.3 H (34.0-71.1) % Lymph % (Auto) 6.1 L (19.3-51.7) % Wolfe % (Auto) 8.9 (4.7-12.5) % Eos % (Auto) 0.3 L (0.7-5.8) Baso % (Auto) 0.1 (0.1-1.2) % Neut # (Auto) 14.49 H (1.56-6.13) K/mm3 Lymph # (Auto) 1.04 L (1.18-3.74) K/mm3 Wolfe # (Auto) 1.53 H (0.24-0.36) K/mm3 Eos # (Auto) 0.05 (0.04-0.36) K/mm3 Baso # (Auto) 0.01 (0.01-0.08) K/mm3 Neutrophils % (Manual) (40-60) % Band Neutrophils % (0-10) % Lymphocytes % (Manual) (20-40) % Atypical Lymphs % % Monocytes % (Manual) (2-10) % Eosinophils % (Manual) (0.7-5.8) % Basophils % (Manual) (0.1-1.2) Manual Slide Review Abnormal smear Toxic Granulation Platelet Estimate Anisocytosis Macrocytosis Ovalocytes RBC Morph Comment D-Dimer, Quantitative (0.19-0.50) mg/L Sodium 130 L (136-145) mEq/L Potassium 3.5 (3.5-5.1) mEq/L Chloride 94 L (98-107) mEq/L Carbon Dioxide 27 (21-32) mEq/L Anion Gap 12.5 (5-15) BUN 12 (7-18) mg/dL Creatinine 0.7 (0.55-1.02) mg/dL Est Cr Clr Drug Dosing 65.66 mL/min Estimated GFR (MDRD) > 60 (>60) mL/min BUN/Creatinine Ratio 17.1 (14-18) Glucose 143 H (74-106) mg/dL Lactic Acid (0.4-2.0) mmol/L Calcium 8.3 L (8.5-10.1) mg/dL Phosphorus 2.5 L (2.6-4.7) mg/dL Magnesium 1.9 (1.8-2.4) mg/dl Ferritin (8-252) ng/ml Total Bilirubin (0.2-1.0) mg/dL AST (15-37) U/L ALT (14-59) U/L Alkaline Phosphatase (46-116) U/L Lactate Dehydrogenase (81-234) U/L Troponin I (0.00-0.056) ng/mL C-Reactive Protein (<1.0) mg/dL NT-Pro-B Natriuret Pep (0-125) pg/mL Total Protein (6.4-8.2) g/dl Albumin (3.4-5.0) g/dl Globulin gm/dL Albumin/Globulin Ratio (1-2) Mycoplasma pneumon IgM (NEGATIVE) SARS Virus RNA (PCR) Negative (NEGATIVE) Med Orders - Current: Current Medications Acetaminophen (Tylenol) 650 mg PO Q4H PRN PRN Reason: Pain (Mild 1-3)/fever Last Admin: 01/09/20 05:11 Dose: 650 mg Albuterol (Proventil Hfa) 0 gm INH Q4H PRN PRN Reason: Shortness of Breath Azithromycin (Zithromax) 500 mg PO DAILY [facility] Last Admin: 01/09/20 08:39 Dose: 500 mg Sodium Chloride (Normal Saline) 1,000 mls @ 125 mls/hr IV ASDIRECTED [facility] Last Admin: 01/09/20 07:04 Dose: 125 mls/hr Lamotrigine (Lamotrigine) 150 mg PO BID [facility] Last Admin: 01/09/20 08:38 Dose: 150 mg Ondansetron HCl (Zofran Odt) 4 mg PO Q6H PRN PRN Reason: nausea, able to take PO Ondansetron HCl (Zofran) 4 mg IV Q6H PRN PRN Reason: Nausea/Vomiting Sertraline HCl (Zoloft) 25 mg PO DAILY [facility] Last Admin: 01/09/20 08:39 Dose: 25 mg Trazodone HCl (Trazodone) 150 mg PO BEDTIME [facility] Discontinued Medications Lactated Ringer's (Ringers, Lactated) 1,000 mls @ 150 mls/hr IV ASDIRECTED [facility] Last Infusion: 01/08/20 20:50 Dose: 125 mls/hr Magnesium Sulfate 2 gm/ Premix 50 mls @ 25 mls/hr IV ONETIME ONE Stop: 01/08/20 22:30 Last Admin: 01/08/20 20:49 Dose: 25 mls/hr Lactated Ringer's (Ringers, Lactated) 1,000 mls @ 125 mls/hr IV ASDIRECTED [facility] Trazodone HCl (Trazodone) 150 mg PO ONETIME ONE Stop: 01/09/20 00:31 Last Admin: 01/09/20 00:47 Dose: 150 mg - Exam Quality Assessment: DVT Prophylaxis. No: Supplemental Oxygen (1L at night) General: Alert, Oriented, Cooperative, No Acute Distress, Other (Cachectic ) HEENT: Pupils Equal, Pupils Reactive, Mucous Membr. Moist/[place]: Supple, Trachea Midline Lungs: Clear to Auscultation, Normal Respiratory Effort. No: Crackles, Rhonchi , Wheezing Cardiovascular: Regular Rate, Regular Rhythm GI/Abdominal Exam: Normal Bowel Sounds, Soft, Non-Tender, No Distention (Female) Exam: Deferred Back Exam: Normal Inspection, Full Range of Motion Extremities: Normal Inspection, Normal Range of Motion, Non-Tender, No Pedal Edema, Normal Capillary Refill Skin: Warm, Dry, Intact Neurological: No New Focal Deficit Psy/Mental Status: Alert Sepsis Event Note - Evaluation Sepsis Screening Result: No Definite Risk - Focused Exam Vital Signs: Vital Signs Temp Pulse Resp BP Pulse Ox 01/09/20 03:27 99.3 F 74 16 93/49 L 96 01/09/20 00:52 98.1 F 72 16 101/68 97 01/08/20 22:42 98.4 F 69 14 125/83 96 Date Exam was Performed: 01/09/20 Time Exam was Performed: 11:22 - Problem List & Annotations (1) Depression SNOMED Code(s): 05032110 Code(s): F32.9 - MAJOR DEPRESSIVE DISORDER, SINGLE EPISODE, UNSPECIFIED Status: Chronic Priority: Medium Current Visit: Yes Qualifiers: Depression Type: other depression Qualified Code(s): F32.89 - Other specified depressive episodes (2) Fall at home SNOMED Code(s): 34258845 Code(s): W19.XXXA - UNSPECIFIED FALL, INITIAL ENCOUNTER; Y92.009 - UNSP PLACE IN UNSP NON-INSTITUT (PRIVATE) RESIDENCE PLACE Status: Acute Priority: High Current Visit: Yes Qualifiers: Encounter type: initial encounter Qualified Code(s): W19.XXXA - Unspecified fall, initial encounter; Y92.009 - Unspecified place in unspecified non-institutional (private) residence as the place of occurrence of the external cause (3) Generalized weakness SNOMED Code(s): 00195055 Code(s): R53.1 - WEAKNESS Status: Chronic Priority: High Current Visit : Yes (4) Hypoalbuminemia due to protein-calorie malnutrition SNOMED Code(s): 08793999830657 Code(s): E88.09 - OTH DISORDERS OF PLASMA-PROTEIN METABOLISM, NEC; E46 - UNSPECIFIED PROTEIN-CALORIE MALNUTRITION Status: Chronic Priority: High Current Visit: Yes (5) Hypokalemia SNOMED Code(s): 31119258 Code(s): E87.6 - HYPOKALEMIA Status: Acute Priority: High Current Visit : Yes (6) Hypomagnesemia SNOMED Code(s): 531683226 Code(s): E83.42 - HYPOMAGNESEMIA Status: Acute Priority: High Current Visit: Yes (7) Hyponatremia SNOMED Code(s): 50209518 Code(s): E87.1 - HYPO-OSMOLALITY AND HYPONATREMIA Status: Acute Priority : High Current Visit: Yes (8) Constipation SNOMED Code(s): 84554524 Code(s): K59.00 - CONSTIPATION, UNSPECIFIED Status: Acute Priority: Medium Current Visit: Yes Qualifiers: Constipation type: unspecified constipation type Qualified Code(s): K59.00 - Constipation, unspecified (9) Fever SNOMED Code(s): 452553045 Code(s): R50.9 - FEVER, UNSPECIFIED Status: Acute Priority: High Current Visit: Yes Qualifiers: Fever type: unspecified Qualified Code(s): R50.9 - Fever, unspecified (10) Leukocytosis SNOMED Code(s): 651601444, 841970640 Code(s): D72.829 - ELEVATED WHITE BLOOD CELL COUNT, UNSPECIFIED Status: Acute Priority: High Current Visit: Yes Qualifiers: Leukocytosis type: unspecified Qualified Code(s): D72.829 - Elevated white blood cell count, unspecified (11) Lung cancer, primary, with metastasis from lung to other site SNOMED Code(s): 25734976, 102025578 Code(s): C34.90 - MALIGNANT NEOPLASM OF UNSP PART OF UNSP BRONCHUS OR LUNG Status: Chronic Priority: High Current Visit: Yes Qualifiers: Laterality: right Qualified Code(s): C34.91 - Malignant neoplasm of unspecified part of right bronchus or lung (12) Mycoplasma infection SNOMED Code(s): 966624909 Code(s): A49.3 - MYCOPLASMA INFECTION, UNSPECIFIED SITE Status: Acute Priority: High Current Visit: Yes (13) COPD (chronic obstructive pulmonary disease) SNOMED Code(s): 12214008 Code(s): J44.9 - CHRONIC OBSTRUCTIVE PULMONARY DISEASE, UNSPECIFIED Status : Chronic Priority: Medium Current Visit: No Qualifiers: COPD type: unspecified COPD Qualified Code(s): J44.9 - Chronic obstructive pulmonary disease, unspecified (14) Immunocompromised state SNOMED Code(s): 447387664 Code(s): D89.9 - DISORDER INVOLVING THE IMMUNE MECHANISM, UNSPECIFIED Status: Chronic Priority: Medium Current Visit: No (15) Liver cancer SNOMED Code(s): 67326956 Code(s): C22.9 - MALIG NEOPLASM OF LIVER, NOT SPECIFIED PRIMARY OR SEC Status: Chronic Priority: Medium Current Visit: No Qualifiers: Liver malignancy type: unspecified liver malignancy Qualified Code(s): C22.9 - Malignant neoplasm of liver, not specified as primary or secondary (16) Liver metastases Status: Chronic Priority: Medium Current Visit: No (17) Primary cancer of right lung metastatic to other site SNOMED Code(s): 18898883, 306956771 Code(s): C34.91 - MALIGNANT NEOPLASM OF UNSP PART OF RIGHT BRONCHUS OR LUNG Status: Chronic Priority: Medium Current Visit: No - Problem List Review Problem List Initiated/Reviewed/Updated: Yes - Plan Plan:: ASSESSMENT -Patient came in complaining of fever, documented at home at 102, in route by EMS of 103 and 100.6. -Denies any urinary, gastrointestinal, skin symptoms -Does endorse dry cough, however states that this is an intermittent problem -Is currently receiving chemotherapy for her lung cancer with Keytruda last chemotherapy session was on 01/01 next one on 01/22 -Labs -Significant leukocytosis with neutrophilia and no bandemia -Elevated ferritin and CRP -Chest x-ray without any changes from previous studies -Hb at baseline -Hyponatremia, hypokalemia and hypomagnesemia -hypoalbuminemia -A lot of the lab test might be abnormal secondary to chemotherapy, he does not seem to be an active infection -Will work up for atypical pneumonia and start azithromycin -As for the falls patient has been loosing significant amount of weight so vitamin levels will be drawn Day 1 -Reports she feels much better -Negative COVID-19 -No fevers since admission -Positive mycoplasma infection -Continue azithromycin -Blood cultures pending Fever Leukocytosis with neutrophilia Immunocompromised state Metastatic advanced lung cancer Mycoplasma infection - Panculture if febrile - Procalcitonin stat - Mycoplasma Positive - Strep. pneumo serology pending - Continue Azithromycin - Request records from [facility] Hypokalemia, Resolved Hypomagnesemia, Resolved Hyponatremia, stable - KCL replaced in ED - Discontinue IV fluids - Repeat labs in AM Fall at home Generalized weakness Hypoalbuminemia due to protein-calorie malnutrition - Vitamin B 12, folic acid, vitamin D level - Dietary evaluation Constipation - Home bowel regimen Depression - Continue home medications PROPHYLAXIS: DVT- compression stockings GI- not indicated CODE STATUS: FULL CODE DISPOSITION: Patient will be admitted to medical floor for electrolyte replacement and monitoring for return of temperature, following up cultures.
[2020-01-09] MEDS: Psyllium Husk Powder Sugar Free 3.4 GM Packet PO SCH ×2 (14:13→20:36)
[2020-01-09] MEDS ORDERED: Morphine 2 MG/ML Syringe IVPUSH PRN (14:31)
[2020-01-09] MEDS: Acetaminophen/HYDROcodone 325-5 MG Tab PO PRN ×2 (15:57→21:51)
[2020-01-09] MEDS: traZODone 50 MG Tab PO SCH (20:33)
[2020-01-09] MEDS ORDERED: traZODone 50 MG Tab PO SCH (21:00)
[2020-01-10] MEDS: Acetaminophen 325 MG Tab PO PRN (00:24)
[2020-01-10] MEDS: Sodium Chloride 0.9% 1,000 ML IV SCH ×2 (06:21→18:57)
[2020-01-10] MEDS: Sertraline 25 MG Tab PO SCH (09:08)
[2020-01-10] MEDS: lamoTRIgine 100 MG Tab PO SCH ×2 (09:08→21:28)
[2020-01-10] MEDS: Azithromycin 250 MG Tab PO SCH (09:09)
[2020-01-10] MEDS: Psyllium Husk Powder Sugar Free 3.4 GM Packet PO SCH ×3 (09:11→21:31)
[2020-01-10] MEDS: Sodium Chloride/Potassium Chloride Tab PO SCH ×2 (11:54→16:06)
[2020-01-10] MEDS ORDERED: Bisacodyl 10 MG Supp RECTAL ONE (12:00)
--- NOTE | 2020-01-10 12:45 | PCM.PN ---
- General Info Date of Service: 01/10/20 Admission Dx/Problem (Free Text): Fever Subjective Update: Patient complains of having chills. She had a temperature of 102.6 overnight. No blood cultures were drawn. Denies bowel movement since admission. Decreased appetite. Functional Status: Reports: Pain Controlled - Review of Systems General: Reports: Fever, Fatigue, Malaise HEENT: Reports: Headaches Pulmonary: Reports: Cough Cardiovascular: Reports: No Symptoms Gastrointestinal: Reports: Decreased Appetite, Nausea Musculoskeletal: Reports: No Symptoms Skin: Reports: No Symptoms Neurological: Reports: No Symptoms Psychiatric: Reports: No Symptoms - Patient Data Vitals - Most Recent: Last Vital Signs Temp 99.5 F 01/10/20 11:29 Pulse 93 01/10/20 11:29 Resp 16 01/10/20 11:29 BP 140/66 01/10/20 11:29 Pulse Ox 99 01/10/20 11:29 Orthostatic Blood Pressure [ 100/67 Standing] Orthostatic Blood Pressure [ 116/58 Supine] Weight - Most Recent: 104 lb 3.2 oz I&O - Last 24 Hours: Intake & Output 01/09/20 01/10/20 01/10/20 22:59 06:59 14:59 Intake Total 2400 1453 420 Output Total 500 Balance 2400 953 420 Lab Results Last 24 Hours: Laboratory Results - last 24 hr 01/08/20 01/09/20 01/09/20 Range/Units 17:30 05:40 05:40 Sodium (136-145) mEq/L Potassium (3.5-5.1) mEq/L Chloride (98-107) mEq/L Carbon Dioxide (21-32) mEq/L Anion Gap (5-15) BUN (7-18) mg/dL Creatinine (0.55-1.02) mg/dL Est Cr Clr Drug Dosing mL/min Estimated GFR (MDRD) (>60) mL/min BUN/Creatinine Ratio (14-18) Glucose (74-106) mg/dL Lactic Acid (0.4-2.0) mmol/L Calcium (8.5-10.1) mg/dL Vitamin B12 620 (193-986) pg/ml Vitamin D 25-Hydroxy 30.9 (30.0-100.0) ng/ml Folate 23.5 (8.6-58.9) ng/mL Procalcitonin 0.43 H (<0.10) ng/mL 01/10/20 01/10/20 Range/Units 00:30 00:30 Sodium 129 L (136-145) mEq/L Potassium 3.5 (3.5-5.1) mEq/L Chloride 94 L (98-107) mEq/L Carbon Dioxide 27 (21-32) mEq/L Anion Gap 11.5 (5-15) BUN 11 (7-18) mg/dL Creatinine 0.7 (0.55-1.02) mg/dL Est Cr Clr Drug Dosing 65.66 mL/min Estimated GFR (MDRD) > 60 (>60) mL/min BUN/Creatinine Ratio 15.7 (14-18) Glucose 121 H (74-106) mg/dL Lactic Acid 1.8 (0.4-2.0) mmol/L Calcium 8.6 (8.5-10.1) mg/dL Vitamin B12 (193-986) pg/ml Vitamin D 25-Hydroxy (30.0-100.0) ng/ml Folate (8.6-58.9) ng/mL Procalcitonin (<0.10) ng/mL Pb Results Last 24 Hours: Microbiology 01/08/20 22:45 Streptococcus pneumoniae Antigen (M - Final Urine 01/08/20 17:30 Aerobic Blood Culture - Preliminary Blood - Venous - Lab Draw NO GROWTH AFTER 1 DAY Anaerobic Blood Culture - Preliminary NO GROWTH AFTER 1 DAY 01/08/20 17:45 Aerobic Blood Culture - Preliminary Blood - Venous NO GROWTH AFTER 1 DAY Anaerobic Blood Culture - Preliminary NO GROWTH AFTER 1 DAY Med Orders - Current: Current Medications Acetaminophen (Tylenol) 650 mg PO Q4H PRN PRN Reason: Pain (Mild 1-3)/fever Last Admin: 01/10/20 00:24 Dose: 650 mg Hydrocodone Bitart/Acetaminophen ([place] 325-5 Mg) 1 tab PO Q6H PRN PRN Reason: Pain Last Admin: 01/09/20 21:51 Dose: 1 tab Albuterol (Proventil Hfa) 0 gm INH Q4H PRN PRN Reason: Shortness of Breath Azithromycin (Zithromax) 500 mg PO DAILY IVONNE Last Admin: 01/10/20 09:09 Dose: 500 mg Sodium Chloride (Normal Saline) 1,000 mls @ 75 mls/hr IV ASDIRECTED [facility] Last Admin: 01/10/20 06:21 Dose: 75 mls/hr Lamotrigine (Lamotrigine) 150 mg PO BID [facility] Last Admin: 01/10/20 09:08 Dose: 150 mg Morphine Sulfate (Morphine) 2 mg IVPUSH Q6HR PRN PRN Reason: Pain Ondansetron HCl (Zofran Odt) 4 mg PO Q6H PRN PRN Reason: nausea, able to take PO Ondansetron HCl (Zofran) 4 mg IV Q6H PRN PRN Reason: Nausea/Vomiting Oral Electrolytes (Thermotabs) 1 each PO TIDAC [facility] Last Admin: 01/10/20 11:54 Dose: 1 each Psyllium Husk (Metamucil Sugar Free) 2 packet PO TID [facility] Last Admin: 01/10/20 09:11 Dose: Not Given Sertraline HCl (Zoloft) 25 mg PO DAILY [facility] Last Admin: 01/10/20 09:08 Dose: 25 mg Trazodone HCl (Trazodone) 150 mg PO BEDTIME [facility] Last Admin: 01/09/20 20:33 Dose: 150 mg Discontinued Medications Bisacodyl (Dulcolax) 10 mg RECTAL ONETIME ONE Stop: 01/10/20 12:01 Last Admin: 01/10/20 11:54 Dose: 10 mg Lactated Ringer's (Ringers, Lactated) 1,000 mls @ 150 mls/hr IV ASDIRECTED [facility] Last Infusion: 01/08/20 20:50 Dose: 125 mls/hr Magnesium Sulfate 2 gm/ Premix 50 mls @ 25 mls/hr IV ONETIME ONE Stop: 01/08/20 22:30 Last Admin: 01/08/20 20:49 Dose: 25 mls/hr Lactated Ringer's (Ringers, Lactated) 1,000 mls @ 125 mls/hr IV ASDIRECTED [facility] Sodium Chloride (Normal Saline) 1,000 mls @ 125 mls/hr IV ASDIRECTED [facility] Last Admin: 01/09/20 07:04 Dose: 125 mls/hr Trazodone HCl (Trazodone) 150 mg PO ONETIME ONE Stop: 01/09/20 00:31 Last Admin: 01/09/20 00:47 Dose: 150 mg - Exam Quality Assessment: Supplemental Oxygen General: Alert, Oriented HEENT: Pupils Equal, Mucous Membr. Moist/[place] Neck: Supple Lungs: Clear to Auscultation, Normal Respiratory Effort Cardiovascular: Regular Rate, Regular Rhythm GI/Abdominal Exam: Normal Bowel Sounds, Soft, Non-Tender, No Distention Extremities: Normal Inspection, Normal Range of Motion, Non-Tender, No Pedal Edema, Normal Capillary Refill Skin: Warm, Dry, Intact Psy/Mental Status: Alert, Depressed Sepsis Event Note - Evaluation Sepsis Screening Result: No Definite Risk - Focused Exam Vital Signs: Vital Signs Temp Pulse Resp BP Pulse Ox 01/10/20 11:29 99.5 F 93 16 140/66 99 01/10/20 09:46 98.6 F 01/10/20 08:25 98.1 F 67 16 121/88 99 01/10/20 03:11 98.2 F 72 18 96/46 L 96 01/10/20 01:18 100.9 F H Date Exam was Performed: 01/10/20 Time Exam was Performed: 12:36 - Problem List Review Problem List Initiated/Reviewed/Updated: Yes - My Orders Last 24 Hours: My Active Orders 01/10/20 09:21 CXR [Chest 2V] [CR] Routine 01/10/20 09:22 UA W/PB RFLX IF INDICATED [URIN] Routine 01/10/20 11:39 PT Evaluation and Treatment [CONS] Routine 01/11/20 05:11 BASIC METABOLIC PANEL,BMP [CHEM] Routine C-REACTIVE PROTEIN [CHEM] AM CBC WITH AUTO DIFF [HEME] AM CBC WITH MANUAL DIFF [HEME] Routine CMP [COMPREHENSIVE METABOLIC PN,CMP] [CHEM] AM MAGNESIUM [CHEM] AM - Plan Plan:: ASSESSMENT On admission -Patient came in complaining of fever, documented at home at 102, in route by EMS of 103 and 100.6. -Denies any urinary, gastrointestinal, skin symptoms -Does endorse dry cough, however states that this is an intermittent problem -Is currently receiving chemotherapy for her lung cancer with Keytruda last chemotherapy session was on 01/01 next one on 01/22 -Labs -Significant leukocytosis with neutrophilia and no bandemia -Elevated ferritin and CRP -Chest x-ray without any changes from previous studies -Hb at baseline -Hyponatremia, hypokalemia and hypomagnesemia -hypoalbuminemia -A lot of the lab test might be abnormal secondary to chemotherapy, she does not seem to be an active infection -Will work up for atypical pneumonia and start azithromycin -As for the falls patient has been loosing significant amount of weight so vitamin levels will be drawn 01/08 -Reports she feels much better -Negative COVID-19 -No fevers since admission -Positive mycoplasma infection -Continue azithromycin -Blood cultures pending 01/09 -Tm 102.6 -Complaining of chills -Positive mycoplasma IgM on admission and in September of this year increasing the likelihood of a false positive for this admission. -Decreased appetite -No bowel movement for 3-4 days -Strep pneumonia urine antigen negative Fever Leukocytosis with neutrophilia Immunocompromised state Metastatic advanced lung cancer ? Mycoplasma infection - Panculture if febrile - Mycoplasma Positive IgM -she had a positive IgM in September, increasing the likelihood that this is a false positive - Strep. pneumo urine antigen negative - Continue Azithromycin - Request records from [facility] -Repeat 2 view chest x-ray -UA and micro Hypokalemia, Resolved Hypomagnesemia, Resolved Hyponatremia, stable - KCL replaced in ED - Discontinue IV fluids -Potassium 3.5 -Sodium 129 -Chronic hyponatremia -Start Thermotabs 1 tab 3 times daily Fall at home Generalized weakness Hypoalbuminemia due to protein-calorie malnutrition - Vitamin B 12, folic acid, vitamin D level - Dietary evaluation Constipation - Home bowel regimen Depression - Continue home medications PROPHYLAXIS: DVT- compression stockings GI- not indicated CODE STATUS: FULL CODE DISPOSITION: Patient will be admitted to medical floor for electrolyte replacement and monitoring for return of temperature, following up cultures.
--- NOTE | 2020-01-10 13:55 | CR ---
Chest: 2 views of the chest were obtained. Comparison: Previous chest x-ray of 01/08/20. Heart size and mediastinum are normal. Cavitary lesion is seen within the right lung. Slight linear densities are seen within the right base which appeared to be chronic. No acute parenchymal change is seen. Right-sided infusion catheter is noted. Heart size and mediastinum are normal. Impression: 1. Stable chest x-ray as described above. 2. Nothing acute is appreciated. Diagnostic code #2 This report was dictated in MDT
[2020-01-10] MEDS ORDERED: LORazepam 1 MG Tab PO PRN (15:10)
[2020-01-10] MEDS: traZODone 50 MG Tab PO SCH (21:28)
[2020-01-11] MEDS: Acetaminophen/HYDROcodone 325-5 MG Tab PO PRN (08:11)
[2020-01-11] MEDS: lamoTRIgine 100 MG Tab PO SCH (08:55)
[2020-01-11] MEDS: Sodium Chloride/Potassium Chloride Tab PO SCH ×2 (08:55→12:33)
[2020-01-11] MEDS: Azithromycin 250 MG Tab PO SCH (08:56)
[2020-01-11] MEDS: Sertraline 25 MG Tab PO SCH (08:56)
[2020-01-11] MEDS: Psyllium Husk Powder Sugar Free 3.4 GM Packet PO SCH (08:57)
[2020-01-11] MEDS ORDERED: Magnesium Oxide 400 MG Tab PO SCH (09:00)
[2020-01-11] MEDS ORDERED: Magnesium Sulfate/Water 4 GM in Premix Bag 1 BAG IV ONE (09:00)
[2020-01-11] MEDS ORDERED: Potassium Chloride 20 MEQ Tab.ER PO ONE (09:00)
--- NOTE | 2020-01-11 11:07 | PCM.DCSUM1 ---
Discharge Summary - Hospital Course HPI Initial Comments: This is a 54-year-old female with past medical history of advanced lung cancer currently getting chemotherapy who came to hospital brought by EMS for fever. 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 This morning patient noted head was still hurting and she also found to have a fever of 102 did not take any medications just called the ambulance and was brought here. Positive for dry cough, constipation (taking miralax BM every 3-7 days) Denies diarrhea, abdominal pain, no skin rash, painful urination, nausea, vomiting, no sick contacts but roommate does not follow social distancing and coughs a lot, yet hasn't been tested. Diagnosis: Stroke: No - Discharge Data Discharge Date: 01/11/20 Discharge Disposition: Home, Self-Care 01 Condition: Good - Referral to Home Health Primary Care Physician: Ping Tamez MD - Discharge Diagnosis/Problem(s) (1) Anemia SNOMED Code(s): 581337640 ICD Code: D64.9 - ANEMIA, UNSPECIFIED Status: Acute (2) Fever SNOMED Code(s): 587355999 ICD Code: R50.9 - FEVER, UNSPECIFIED Status: Acute Priority: High Qualifiers: Fever type: unspecified Qualified Code(s): R50.9 - Fever, unspecified (3) Hypokalemia SNOMED Code(s): 94293220 ICD Code: E87.6 - HYPOKALEMIA Status: Acute Priority: High (4) Hypomagnesemia SNOMED Code(s): 970266840 ICD Code: E83.42 - HYPOMAGNESEMIA Status: Acute Priority: High (5) Hyponatremia SNOMED Code(s): 66216045 ICD Code: E87.1 - HYPO-OSMOLALITY AND HYPONATREMIA Status: Acute Priority : High (6) Leukocytosis SNOMED Code(s): 482020732, 625241416 ICD Code: D72.829 - ELEVATED WHITE BLOOD CELL COUNT, UNSPECIFIED Status: Acute Priority: High Qualifiers: Leukocytosis type: unspecified Qualified Code(s): D72.829 - Elevated white blood cell count, unspecified - Patient Summary/Data Consults: Consultations 01/08/20 21:39 Consult to Staff Physical Therapist [CONS] Routine 01/10/20 11:39 PT Evaluation and Treatment [CONS] Routine Hospital Course: Plan:: ASSESSMENT On admission -Patient came in complaining of fever, documented at home at 102, in route by EMS of 103 and 100.6. -Denies any urinary, gastrointestinal, skin symptoms -Does endorse dry cough, however states that this is an intermittent problem -Is currently receiving chemotherapy for her lung cancer with Keytruda last chemotherapy session was on 01/01 next one on 01/22 -Labs -Significant leukocytosis with neutrophilia and no bandemia -Elevated ferritin and CRP -Chest x-ray without any changes from previous studies -Hb at baseline -Hyponatremia, hypokalemia and hypomagnesemia -hypoalbuminemia -A lot of the lab test might be abnormal secondary to chemotherapy, she does not seem to be an active infection -Will work up for atypical pneumonia and start azithromycin -As for the falls patient has been loosing significant amount of weight so vitamin levels will be drawn 01/08 -Reports she feels much better -Negative COVID-19 -No fevers since admission -Positive mycoplasma infection -Continue azithromycin -Blood cultures pending 01/09 -Tm 102.6 -Complaining of chills -Positive mycoplasma IgM on admission and in September of this year increasing the likelihood of a false positive for this admission. -Decreased appetite -No bowel movement for 3-4 days -Strep pneumonia urine antigen negative 01/10 -Afebrile -Negative blood cultures -No source of infection -Fever likely secondary to either cancer and/or chemotherapy -Initial hemoglobin this morning was 7.2, repeat was 7.9. She is asymptomatic, therefore no indication for transfusion at this time. -She will follow-up with oncology on January 21 and . Fever Leukocytosis with neutrophilia Immunocompromised state Metastatic advanced lung cancer ? Mycoplasma infection - Panculture if febrile - Mycoplasma Positive IgM -she had a positive IgM in September, increasing the likelihood that this is a false positive - Strep. pneumo urine antigen negative - Continue Azithromycin - Request records from [facility] -Repeat 2 view chest x-ray -UA and micro Hypokalemia, Resolved Hypomagnesemia, Resolved Hyponatremia, stable - KCL replaced in ED - Discontinue IV fluids -Potassium 3.5 -Sodium 129 -Chronic hyponatremia -Start Thermotabs 1 tab 3 times daily Fall at home Generalized weakness Hypoalbuminemia due to protein-calorie malnutrition - Vitamin B 12, folic acid, vitamin D level - Dietary evaluation Constipation - Home bowel regimen Depression - Continue home medications - Patient Instructions Diet: Regular Diet as Tolerated Activity: As Tolerated Driving: May Drive Today Showering/Bathing: May Shower Other/Special Instructions: Please keep your appointment with oncology on January 21 and . You will need repeat metabolic panel and renal function panel. You will also need a hemoglobin check. If you start to become short of breath, develop palpitations, or increasing fatigue return to the emergency room for evaluation. - Discharge Plan *PRESCRIPTION DRUG MONITORING PROGRAM REVIEWED*: Not Applicable *COPY OF PRESCRIPTION DRUG MONITORING REPORT IN PATIENT RUFINO: Not Applicable Prescriptions/Med Rec: Acetaminophen/HYDROcodone [[place] 325-5 MG] 1 tab PO Q6H PRN #10 tablet PRN Reason: Pain Azithromycin [Zithromax] 500 mg PO DAILY #1 tablet Magnesium Oxide 400 mg PO BID #60 tablet Sodium Chloride/KCl [Thermotabs] 1 each PO TIDAC #90 tablet Home Medications: Home Meds traZODone HCl [Trazodone HCl] 150 mg PO BEDTIME 05/19/18 [History] Sertraline [Zoloft] 25 mg PO DAILY 08/14/19 [History] lamoTRIgine 150 mg PO BID 10/26/19 [History] Albuterol Sulfate [Albuterol Sulfate Hfa] 2 puff INH Q4H PRN 12/18/19 [History] Acetaminophen/HYDROcodone [[place] 325-5 MG] 1 tab PO Q6H PRN #10 tablet 01/11/20 [Rx] Azithromycin [Zithromax] 500 mg PO DAILY #1 tablet 01/11/20 [Rx] Magnesium Oxide 400 mg PO BID #60 tablet 01/11/20 [Rx] Sodium Chloride/KCl [Thermotabs] 1 each PO TIDAC #90 tablet 01/11/20 [Rx] Patient Handouts: Fall Prevention in the Home, Adult, [id number], Steps to Quit Smoking Referrals: Ping Tamez MD [Primary Care Provider] - 01/17/20 8:30 am (Please follow up with Dr. Tamez on January 16 at 8:30.) - Discharge Summary/Plan Comment DC Time >30 min.: Yes Discharge Summary/Plan Comment: Discharge home Follow-up with primary care next week Follow-up with oncology on January 21 and . - General Info Date of Service: 01/11/20 Admission Dx/Problem (Free Text: Fever Subjective Update: Patient states that she is feeling better. She denies any fatigue. Appetite is still poor. Functional Status: Reports: Pain Controlled - Review of Systems General: Reports: Fatigue HEENT: Reports: No Symptoms Pulmonary: Reports: No Symptoms Cardiovascular: Reports: No Symptoms Gastrointestinal: Reports: No Symptoms Musculoskeletal: Reports: No Symptoms - Patient Data Vitals - Most Recent: Last Vital Signs Temp 99.5 F 01/11/20 07:42 Pulse 91 01/11/20 07:42 Resp 20 01/11/20 07:42 BP 104/56 L 01/11/20 07:42 Pulse Ox 97 01/11/20 07:42 Orthostatic Blood Pressure [ 100/67 Standing] Orthostatic Blood Pressure [ 116/58 Supine] Weight - Most Recent: 101 lb 12.8 oz I&O - Last 24 hours: Intake & Output 01/10/20 01/11/20 01/11/20 22:59 06:59 14:59 Intake Total 1620 1703 420 Output Total 1350 2350 Balance 270 -647 420 Lab Results - Last 24 hrs: Laboratory Results - last 24 hr 01/10/20 01/11/20 01/11/20 Range/Units 12:45 05:10 05:10 WBC 13.90 H (3.98-10.04) K/mm3 RBC 2.54 L (3.98-5.22) M/mm3 Hgb 7.2 L* (11.2-15.7) gm/dl Hct 23.9 L (34.1-44.9) % MCV 94.1 (79.4-94.8) fl MCH 28.3 (25.6-32.2) pg MCHC 30.1 L (32.2-35.5) g/dl RDW Std Deviation 64.2 H (36.4-46.3) fL Plt Count 375 H (182-369) K/mm3 MPV 8.8 L (9.4-12.3) fl Neut % (Auto) 77.7 H (34.0-71.1) % Lymph % (Auto) 8.3 L (19.3-51.7) % [place] % (Auto) 13.2 H (4.7-12.5) % Eos % (Auto) 0.3 L (0.7-5.8) Baso % (Auto) 0.1 (0.1-1.2) % Neut # (Auto) 10.81 H (1.56-6.13) K/mm3 Lymph # (Auto) 1.15 L (1.18-3.74) K/mm3 [place] # (Auto) 1.84 H (0.24-0.36) K/mm3 Eos # (Auto) 0.04 (0.04-0.36) K/mm3 Baso # (Auto) 0.01 (0.01-0.08) K/mm3 Neutrophils % (Manual) Cancelled Band Neutrophils % Cancelled Lymphocytes % (Manual) Cancelled Atypical Lymphs % Cancelled Immat Monocytes % (Man) Cancelled Monocytes % (Manual) Cancelled Eosinophils % (Manual) Cancelled Basophils % (Manual) Cancelled Metamyelocytes % Cancelled Myelocytes % Cancelled Promyelocytes % Cancelled Blast Cells % Cancelled Plasma Cell % (Manual) Cancelled Immature Gran # Cancelled Absolute Neutrophils Cancelled Absolute Seg Neuts Cancelled Band Neutrophils # Cancelled Lymphocytes # (Manual) Cancelled Monocytes # (Manual) Cancelled Eosinophils # (Manual) Cancelled Basophils # (Manual) Cancelled Absolute Metamyelocyte Cancelled Absolute Myelocytes Cancelled Absolute Promyelocytes Cancelled Absolute Plasma Cells Cancelled Nucleated RBCs Cancelled Differential Comment Cancelled Manual Slide Review Abnormal smear Hypersegmented Neuts Cancelled Atypical Lymphocytes Cancelled Vacuolated Monocytes Cancelled Absolute Blast Cells Cancelled Toxic Granulation Cancelled Dohle Bodies Cancelled Pelger-Huet Cells Cancelled Megakaryocytic Frags Cancelled Malorie Rods Cancelled WBC Morphology Comment Cancelled Platelet Estimate Cancelled Clumped Platelets Cancelled Giant Platelets Cancelled Plt Morphology Comment Cancelled Polychromasia Cancelled Hypochromasia Cancelled Poikilocytosis Cancelled Basophilic Stippling Cancelled Anisocytosis Cancelled Microcytosis Cancelled Macrocytosis Cancelled Spherocytes Cancelled Pappenheimer Bodies Cancelled Sickle Cells Cancelled Target Cells Cancelled Tear Drop Cells Cancelled Ovalocytes Cancelled Stomatocytes Cancelled Helmet Cells Cancelled Aj-Greybull Bodies Cancelled [place] Rings Cancelled [place] Cells Cancelled Elliptocytes Cancelled Acanthocytes (Spur) Cancelled Rouleaux Cancelled Hemoglobin C Crystals Cancelled Schistocytes Cancelled RBC Morph Comment Cancelled Smear Path Review Cancelled Ross Bodies Cancelled Sodium 133 L (136-145) mEq/L Potassium 3.2 L (3.5-5.1) mEq/L Chloride 97 L (98-107) mEq/L Carbon Dioxide 27 (21-32) mEq/L Anion Gap 12.2 (5-15) BUN 7 (7-18) mg/dL Creatinine 0.6 (0.55-1.02) mg/dL Est Cr Clr Drug Dosing 79.98 mL/min Estimated GFR (MDRD) > 60 (>60) mL/min BUN/Creatinine Ratio 11.7 L (14-18) Glucose 85 (74-106) mg/dL Calcium 8.4 L (8.5-10.1) mg/dL Magnesium 1.6 L (1.8-2.4) mg/dl Total Bilirubin 0.5 (0.2-1.0) mg/dL AST 15 (15-37) U/L ALT 14 (14-59) U/L Alkaline Phosphatase 169 H (46-116) U/L C-Reactive Protein 19.9 H* (<1.0) mg/dL Total Protein 6.1 L (6.4-8.2) g/dl Albumin 1.9 L (3.4-5.0) g/dl Globulin 4.2 gm/dL Albumin/Globulin Ratio 0.5 L (1-2) Urine Color Yellow (Yellow) Urine Appearance Clear (Clear) Urine pH 7.0 (5.0-8.0) Ur Specific [place] 1.020 (1.005-1.030) Urine Protein Trace H (Negative) Urine Glucose (UA) Negative (Negative) Urine Ketones Negative (Negative) Urine Occult Blood 1+ H (Negative) Urine Nitrite Negative (Negative) Urine Bilirubin Negative (Negative) Urine Urobilinogen 0.2 (0.2-1.0) Ur Leukocyte Esterase Negative (Negative) Urine RBC 10-20 H (0-5) /hpf Urine WBC 0-5 (0-5) /hpf Ur Squamous Epith Cells 0-5 (0-5) /hpf Urine Bacteria Few (FEW) /hpf Urine Mucus Rare (FEW) /hpf Slides for Path Review Cancelled 01/11/20 Range/Units 06:44 WBC (3.98-10.04) K/mm3 RBC (3.98-5.22) M/mm3 Hgb 7.9 L (11.2-15.7) gm/dl Hct (34.1-44.9) % MCV (79.4-94.8) fl MCH (25.6-32.2) pg MCHC (32.2-35.5) g/dl RDW Std Deviation (36.4-46.3) fL Plt Count (182-369) K/mm3 MPV (9.4-12.3) fl Neut % (Auto) (34.0-71.1) % Lymph % (Auto) (19.3-51.7) % [place] % (Auto) (4.7-12.5) % Eos % (Auto) (0.7-5.8) Baso % (Auto) (0.1-1.2) % Neut # (Auto) (1.56-6.13) K/mm3 Lymph # (Auto) (1.18-3.74) K/mm3 [place] # (Auto) (0.24-0.36) K/mm3 Eos # (Auto) (0.04-0.36) K/mm3 Baso # (Auto) (0.01-0.08) K/mm3 Neutrophils % (Manual) Band Neutrophils % Lymphocytes % (Manual) Atypical Lymphs % Immat Monocytes % (Man) Monocytes % (Manual) Eosinophils % (Manual) Basophils % (Manual) Metamyelocytes % Myelocytes % Promyelocytes % Blast Cells % Plasma Cell % (Manual) Immature Gran # Absolute Neutrophils Absolute Seg Neuts Band Neutrophils # Lymphocytes # (Manual) Monocytes # (Manual) Eosinophils # (Manual) Basophils # (Manual) Absolute Metamyelocyte Absolute Myelocytes Absolute Promyelocytes Absolute Plasma Cells Nucleated RBCs Differential Comment Manual Slide Review Hypersegmented Neuts Atypical Lymphocytes Vacuolated Monocytes Absolute Blast Cells Toxic Granulation Dohle Bodies Pelger-Huet Cells Megakaryocytic Frags Malorie Rods WBC Morphology Comment Platelet Estimate Clumped Platelets Giant Platelets Plt Morphology Comment Polychromasia Hypochromasia Poikilocytosis Basophilic Stippling Anisocytosis Microcytosis Macrocytosis Spherocytes Pappenheimer Bodies Sickle Cells Target Cells Tear Drop Cells Ovalocytes Stomatocytes Helmet Cells Aj-Greybull Bodies [place] Rings [place] Cells Elliptocytes Acanthocytes (Spur) Rouleaux Hemoglobin C Crystals Schistocytes RBC Morph Comment Smear Path Review Ross Bodies Sodium (136-145) mEq/L Potassium (3.5-5.1) mEq/L Chloride (98-107) mEq/L Carbon Dioxide (21-32) mEq/L Anion Gap (5-15) BUN (7-18) mg/dL Creatinine (0.55-1.02) mg/dL Est Cr Clr Drug Dosing mL/min Estimated GFR (MDRD) (>60) mL/min BUN/Creatinine Ratio (14-18) Glucose (74-106) mg/dL Calcium (8.5-10.1) mg/dL Magnesium (1.8-2.4) mg/dl Total Bilirubin (0.2-1.0) mg/dL AST (15-37) U/L ALT (14-59) U/L Alkaline Phosphatase (46-116) U/L C-Reactive Protein (<1.0) mg/dL Total Protein (6.4-8.2) g/dl Albumin (3.4-5.0) g/dl Globulin gm/dL Albumin/Globulin Ratio (1-2) Urine Color (Yellow) Urine Appearance (Clear) Urine pH (5.0-8.0) Ur Specific [place] (1.005-1.030) Urine Protein (Negative) Urine Glucose (UA) (Negative) Urine Ketones (Negative) Urine Occult Blood (Negative) Urine Nitrite (Negative) Urine Bilirubin (Negative) Urine Urobilinogen (0.2-1.0) Ur Leukocyte Esterase (Negative) Urine RBC (0-5) /hpf Urine WBC (0-5) /hpf Ur Squamous Epith Cells (0-5) /hpf Urine Bacteria (FEW) /hpf Urine Mucus (FEW) /hpf Slides for Path Review TYREE Results - Last 24 hrs: Microbiology 01/08/20 17:30 Aerobic Blood Culture - Preliminary Blood - Venous - Lab Draw NO GROWTH AFTER 2 DAYS Anaerobic Blood Culture - Preliminary NO GROWTH AFTER 2 DAYS 01/08/20 17:45 Aerobic Blood Culture - Preliminary Blood - Venous NO GROWTH AFTER 2 DAYS Anaerobic Blood Culture - Preliminary NO GROWTH AFTER 2 DAYS 01/08/20 22:45 Streptococcus pneumoniae Antigen (M - Final Urine Med Orders - Current: Current Medications Acetaminophen (Tylenol) 650 mg PO Q4H PRN PRN Reason: Pain (Mild 1-3)/fever Last Admin: 01/10/20 00:24 Dose: 650 mg Hydrocodone Bitart/Acetaminophen ([place] 325-5 Mg) 1 tab PO Q6H PRN PRN Reason: Pain Last Admin: 01/11/20 08:11 Dose: 1 tab Albuterol (Proventil Hfa) 0 gm INH Q4H PRN PRN Reason: Shortness of Breath Azithromycin (Zithromax) 500 mg PO DAILY [facility] Last Admin: 01/11/20 08:56 Dose: 500 mg Magnesium Sulfate 4 gm/ Premix 50 mls @ 12.5 mls/hr IV ONETIME ONE Stop: 01/11/20 12:59 Last Admin: 01/11/20 09:47 Dose: 12.5 mls/hr Lamotrigine (Lamotrigine) 150 mg PO BID [facility] Last Admin: 01/11/20 08:55 Dose: 150 mg Lorazepam (Ativan) 1 mg PO Q4H PRN PRN Reason: Anxiety Last Admin: 01/10/20 16:05 Dose: 1 mg Magnesium Oxide (Magnesium Oxide) 400 mg PO BID [facility] Last Admin: 01/11/20 09:46 Dose: 400 mg Morphine Sulfate (Morphine) 2 mg IVPUSH Q6HR PRN PRN Reason: Pain Ondansetron HCl (Zofran Odt) 4 mg PO Q6H PRN PRN Reason: nausea, able to take PO Ondansetron HCl (Zofran) 4 mg IV Q6H PRN PRN Reason: Nausea/Vomiting Oral Electrolytes (Thermotabs) 1 each PO TIDAC [facility] Last Admin: 01/11/20 08:55 Dose: 1 each Sertraline HCl (Zoloft) 25 mg PO DAILY [facility] Last Admin: 01/11/20 08:56 Dose: 25 mg Trazodone HCl (Trazodone) 150 mg PO BEDTIME [facility] Last Admin: 01/10/20 21:28 Dose: 150 mg Discontinued Medications Bisacodyl (Dulcolax) 10 mg RECTAL ONETIME ONE Stop: 01/10/20 12:01 Last Admin: 01/10/20 11:54 Dose: 10 mg Lactated Ringer's (Ringers, Lactated) 1,000 mls @ 150 mls/hr IV ASDIRECTED [facility] Last Infusion: 01/08/20 20:50 Dose: 125 mls/hr Magnesium Sulfate 2 gm/ Premix 50 mls @ 25 mls/hr IV ONETIME ONE Stop: 01/08/20 22:30 Last Admin: 01/08/20 20:49 Dose: 25 mls/hr Lactated Ringer's (Ringers, Lactated) 1,000 mls @ 125 mls/hr IV ASDIRECTED [facility] Sodium Chloride (Normal Saline) 1,000 mls @ 125 mls/hr IV ASDIRECTED [facility] Last Admin: 01/09/20 07:04 Dose: 125 mls/hr Sodium Chloride (Normal Saline) 1,000 mls @ 75 mls/hr IV ASDIRECTED [facility] Last Admin: 01/10/20 18:57 Dose: 75 mls/hr Potassium Chloride (Klor-Con M20) 40 meq PO ONETIME ONE Stop: 01/11/20 09:01 Last Admin: 01/11/20 09:46 Dose: 40 meq Psyllium Husk (Metamucil Sugar Free) 2 packet PO TID [facility] Last Admin: 01/11/20 08:57 Dose: Not Given Trazodone HCl (Trazodone) 150 mg PO ONETIME ONE Stop: 01/09/20 00:31 Last Admin: 01/09/20 00:47 Dose: 150 mg - Exam General: Reports: Alert, Oriented HEENT: Reports: Pupils Equal, Mucous Membr. Moist/[place] Neck: Reports: Supple Lungs: Reports: Clear to Auscultation, Normal Respiratory Effort Cardiovascular: Reports: Regular Rate, Regular Rhythm GI/Abdominal Exam: Normal Bowel Sounds, Soft, Non-Tender, No Organomegaly, No Distention, No Abnormal Bruit, No Mass, Pelvis Stable Extremities: Normal Inspection, Normal Range of Motion, Non-Tender, No Pedal Edema, Normal Capillary Refill
== END 2020-01-11 13:20 | disposition home or self-care (01) | DRG 864 ==
LOC: JD.ED 16:44 → JD.MS 21:52
PROVIDERS: ADMIT Internal Medicine; ATTEND Internal Medicine
DX: R50.2 Drug induced fever (principal); E87.1 Hypo-osmolality and hyponatremia; E46 Unspecified protein-calorie malnutrition; C34.91 Malignant neoplasm of unspecified part of right bronchus or lung; Z20.828 Contact with and (suspected) exposure to other viral communicable diseases; E83.42 Hypomagnesemia; C79.31 Secondary malignant neoplasm of brain; T45.1X5A Adverse effect of antineoplastic and immunosuppressive drugs, initial encounter; E87.6 Hypokalemia; R53.1 Weakness; K59.00 Constipation, unspecified; D72.829 Elevated white blood cell count, unspecified; J44.9 Chronic obstructive pulmonary disease, unspecified; A49.3 Mycoplasma infection, unspecified site; W19.XXXA Unspecified fall, initial encounter; Z88.5 Allergy status to narcotic agent; Y92.89 Other specified places as the place of occurrence of the external cause; D64.9 Anemia, unspecified; H54.7 Unspecified visual loss; J43.9 Emphysema, unspecified; C34.90 Malignant neoplasm of unspecified part of unspecified bronchus or lung; C78.7 Secondary malignant neoplasm of liver and intrahepatic bile duct; Z86.19 Personal history of other infectious and parasitic diseases; M19.90 Unspecified osteoarthritis, unspecified site; F32.9 Major depressive disorder, single episode, unspecified; F41.9 Anxiety disorder, unspecified; Z90.49 Acquired absence of other specified parts of digestive tract; Z90.711 Acquired absence of uterus with remaining cervical stump; Z87.891 Personal history of nicotine dependence; Z88.6 Allergy status to analgesic agent; Z79.899 Other long term (current) drug therapy
CPT/HCPCS: 36415; 71045; 80053; 82728; 83605; 83615; 83735; 83880; 84145; 84484; 85007; 85027; 85379; 86140; 86738; 87040 ×2; 87635; 93005; 96361; 96365; 96366; 99285; J3475; J7120; 71046; 71046-26; 80048; 81001; 82306; 82607; 82746; 84100; 85018; 85025; 87899; 93010; 97110-GP; 97116-GP; 97162-GP; 99222; 99232; 99239; A9270-GY; J1642; J7030; U0002

== ENCOUNTER 2020-02-22 13:59 | Emergency (ER) | payer MEDICAID, OTHER ==
--- NOTE | 2020-02-22 14:20 | EDM.PDOC ---
ED HPI GENERAL MEDICAL PROBLEM - General Chief Complaint: Headache Stated Complaint: BUMP ON HEAD Time Seen by Provider: 02/22/20 14:14 Source of Information: Reports: Patient History Limitations: Reports: No Limitations - History of Present Illness INITIAL COMMENTS - FREE TEXT/NARRATIVE: pt reports R scalp contusion from 2 months ago that is still there and tender, pt reports at that time she had a same level fall and was seen here in the ER and had a head CT done, pt reprots that she continues to have tenderness to site and reports the contusion has not gone down, pt has hx of lung CA and her last chemo was 6 weeks ago, no fever, no chills, no neurological deficit no hemiplegia, pt reports she has been taking her norco for pain which has been controlling her pain Treatments PSYCHOLOGY PHYSICIAN: Reports: Other (see below) Other Treatments PSYCHOLOGY PHYSICIAN: norco Right Head Pain Score (Numeric/FACES): 7 - Related Data Allergies Allergy/AdvReac Type Severity Reaction Status Date / Time ketorolac [From Toradol] AdvReac Intermediate Vomiting Verified 01/09/20 13:38 Home Meds: Home Meds traZODone HCl [Trazodone HCl] 150 mg PO BEDTIME 05/19/18 [History] Sertraline [Zoloft] 25 mg PO DAILY 08/14/19 [History] lamoTRIgine 150 mg PO BID 10/26/19 [History] Albuterol Sulfate [Albuterol Sulfate Hfa] 2 puff INH Q4H PRN 12/18/19 [History] Magnesium Oxide 400 mg PO BID #60 tablet 01/11/20 [Rx] Acetaminophen/HYDROcodone [[place] 325-5 MG] 5 - 325 mg PO Q6H PRN 02/22/20 [History] Past Medical History HEENT History: Reports: Impaired Vision, Other (See Below) Other HEENT History: wears glasses Respiratory History: Reports: COPD, Other (See Below) Other Respiratory History: lung cancer, emphysema Gastrointestinal History: Reports: Hepatitis Other Gastrointestinal History: "cured for hepatitis C" Genitourinary History: Reports: None ENVIRONMENTAL COORDINATOR History: Reports: Other ENVIRONMENTAL COORDINATOR History: partial hysterectomy, vaginal x 3 deliveries Musculoskeletal History: Reports: Osteoarthritis Other Musculoskeletal History: and scoliosis of the spine Neurological History: Reports: Migraines, Seizure Psychiatric History: Reports: Anxiety, Depression, Suicide Attempt Immunologic History: Reports: Other (See Below) Other Immunologic History: Hep C- cured? Oncologic (Cancer) History: Reports: Liver, Lung, Metastatic Other Oncologic History: Last chemo-01/02/2020 Dermatologic History: Reports: Other (See Below) Other Dermatologic History: dry skin - Infectious Disease History Infectious Disease History: Reports: Chicken Pox, Hepatitis C Other Infectious Disease History: had treatment and now is clear since November. - Past Surgical History HEENT Surgical History: Reports: Oral Surgery Other HEENT Surgeries/Procedures: upper dentures in pt mouth Respiratory Surgical History: Reports: None GI Surgical History: Reports: Appendectomy, Cholecystectomy Female Surgical History: Reports: Hysterectomy Neurological Surgical History: Reports: None Musculoskeletal Surgical History: Reports: None Social & Family History - Family History Family Medical History: Noncontributory Cardiac: Reports: CAD Oncologic: Reports: Breast - Caffeine Use Caffeine Use: Reports: Coffee, Soda Other Caffeine Use: 2 cups a day sometimes 3 - Living Situation & Occupation Living situation: Reports: , with Family (Daughter, her 2 kids, and her boyfriend) Occupation: Disabled ED ROS GENERAL - Review of Systems Review Of Systems: See Below Constitutional: Denies: Fever, Chills Neurological: Reports: Headache. Denies: Confusion, Dizziness - Physical Exam Exam: See Below Exam Limited By: No Limitations General Appearance: Alert, WD/WN, Mild Distress Ears: Normal External Exam, Normal Canal, Hearing Grossly Normal, Normal TMs Throat/Mouth: Normal Inspection, Normal Lips, Normal Teeth, Normal Gums, Normal Oropharynx, Normal Voice, No Airway Compromise Head Exam: Scalp Hematoma (r posterior), Scalp Tenderness (r posterior), Other Neck: Normal Inspection, Supple, Non-Tender, Full Range of Motion Respiratory/Chest: No Respiratory Distress, Lungs Clear, Normal Breath Sounds, No Accessory Muscle Use, Chest Non-Tender, Other (r chest wall infusaport in place) Cardiovascular: Normal Peripheral Pulses, Regular Rate, Rhythm, No Edema, No Gallop, No JVD, No Murmur, No Rub GI/Abdominal: Normal Bowel Sounds, Soft, Non-Tender, No Organomegaly, No Distention, No Abnormal Bruit, No Mass Neuro Exam (Abbreviated): Alert, Oriented, CN II-XII Intact Back Exam: Normal Inspection, Full Range of Motion, NT Extremities: Normal Inspection, Normal Range of Motion, Non-Tender, No Pedal Edema, Normal Capillary Refill Skin Exam: Warm, Dry, Intact Course - Vital Signs Last Recorded V/S: Last Vital Signs Temp 97.4 F 02/22/20 14:10 Pulse 72 02/22/20 14:10 Resp 200 H 02/22/20 14:10 BP 89/57 L 02/22/20 14:10 Pulse Ox 96 02/22/20 14:10 Departure - Departure Time of Disposition: 14:21 Disposition: Home, Self-Care 01 Condition: Good Clinical Impression: Scalp contusion Qualifiers: Encounter type: subsequent encounter Qualified Code(s): S00.03XD - Contusion of scalp, subsequent encounter - Discharge Information Referrals: Ping Tamez MD [Primary Care Provider] - Forms: ED Department Discharge Additional Instructions: Home, Rest, Return as needed Sepsis Event Note (ED) - Evaluation Sepsis Screening Result: No Definite Risk - Focused Exam Vital Signs: Vital Signs Temp Pulse Resp BP Pulse Ox 02/22/20 14:10 97.4 F 72 200 H 89/57 L 96
== END 2020-02-22 14:50 | disposition home or self-care (01) ==
LOC: JD.ED 13:59
DX: S00.03XA Contusion of scalp, initial encounter (principal); M19.90 Unspecified osteoarthritis, unspecified site; F41.9 Anxiety disorder, unspecified; F32.9 Major depressive disorder, single episode, unspecified; Z88.6 Allergy status to analgesic agent; Z79.899 Other long term (current) drug therapy; W18.30XA Fall on same level, unspecified, initial encounter
CPT/HCPCS: 99282; 99283

== ENCOUNTER 2020-02-27 11:47 | Emergency (ER) | payer MEDICAID ==
--- NOTE | 2020-02-27 12:25 | EDM.PDOC ---
<OnurJustin R - Last Filed: 02/27/20 12:18> ED HPI GENERAL MEDICAL PROBLEM - General Chief Complaint: General Stated Complaint: R SIDE RIB PAIN W/DEEP BREATH Time Seen by Provider: 02/27/20 11:59 Source of Information: Reports: Patient History Limitations: Reports: No Limitations - History of Present Illness INITIAL COMMENTS - FREE TEXT/NARRATIVE: Florence is a 54 YO female that presents to the ED experiencing right sided chest pain. Pain began suddenly upon waking three days ago. Pain is described as a sharp, stabbing sensation located midaxillary in the 7-9th ribs. Rated at a 7 out of 10. Pain worsens upon deep inspiration. No relief with Agency or Tylenol. Denies fever, fatigue, cough, shortness of breath, nausea, vomiting, diarrhea, or recent trauma. Onset: Sudden Onset Date: 02/24/20 Duration: Day(s): Location: Reports: Chest Quality: Reports: Sharp, Stabbing Severity: Moderate Improves with: Reports: None Worsens with: Reports: Breathing Associated Symptoms: Reports: No Other Symptoms Other Treatments SENIOR QA ANALYST: Tylenol, Agency Right Chest Pain Score (Numeric/FACES): 8 - Related Data Allergies Allergy/AdvReac Type Severity Reaction Status Date / Time ketorolac [From Toradol] AdvReac Intermediate Vomiting Verified 02/27/20 12:00 Home Meds: Home Meds traZODone HCl [Trazodone HCl] 150 mg PO BEDTIME 05/19/18 [History] Sertraline [Zoloft] 50 mg PO DAILY 08/14/19 [History] lamoTRIgine 150 mg PO BID 10/26/19 [History] Albuterol Sulfate [Albuterol Sulfate Hfa] 2 puff INH Q4H PRN 12/18/19 [History] Magnesium Oxide 400 mg PO BID #60 tablet 01/11/20 [Rx] Acetaminophen/HYDROcodone [Agency 325-5 MG] 5 - 325 mg PO Q6H PRN 02/22/20 [History] Acetaminophen 500 mg PO Q6HR PRN 02/27/20 [History] Acetaminophen/HYDROcodone [Agency 325-5 MG] 1 tab PO Q6H PRN #30 tablet 02/27/20 [Rx] Celecoxib 100 mg PO BID 02/27/20 [History] dexAMETHasone [Dexamethasone] 4 mg PO ASDIRECTED 02/27/20 [History] Past Medical History HEENT History: Reports: Impaired Vision, Other (See Below) Other HEENT History: wears glasses Cardiovascular History: Reports: None Respiratory History: Reports: COPD, Other (See Below) Other Respiratory History: lung cancer, emphysema Gastrointestinal History: Reports: Hepatitis Other Gastrointestinal History: "cured for hepatitis C", Liver cancer Genitourinary History: Reports: None ELECTRIC ORGAN CHECKER History: Reports: Other ELECTRIC ORGAN CHECKER History: 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 Neurological History: Reports: Migraines, Seizure Psychiatric History: Reports: Anxiety, Depression, Suicide Attempt Endocrine/Metabolic History: Reports: None Hematologic History: Reports: None Immunologic History: Reports: None Other Immunologic History: Hep C- cured? Oncologic (Cancer) History: Reports: Liver, Lung, Metastatic Other Oncologic History: Last chemo-01/02/2020 Dermatologic History: Reports: Other (See Below) Other Dermatologic History: dry skin - Infectious Disease History Infectious Disease History: Reports: Hepatitis C Other Infectious Disease History: had treatment and now is clear since November. - Past Surgical History HEENT Surgical History: Reports: Oral Surgery Other HEENT Surgeries/Procedures: upper dentures in pt mouth Respiratory Surgical History: Reports: None GI Surgical History: Reports: Appendectomy, Cholecystectomy Female Surgical History: Reports: Hysterectomy Neurological Surgical History: Reports: None Musculoskeletal Surgical History: Reports: None Social & Family History - Family History Family Medical History: Noncontributory Cardiac: Reports: CAD Oncologic: Reports: Breast - Tobacco Use Smoking Status *Q: Former Smoker Used Tobacco, but Quit: Yes Month/Year Tobacco Last Used: 09/2019 - Caffeine Use Caffeine Use: Reports: Coffee, Soda Other Caffeine Use: 2 cups a day sometimes 3 - Recreational Drug Use Recreational Drug Use: No - Living Situation & Occupation Living situation: Reports: , with Family (Daughter, her 2 kids, and her boyfriend) Occupation: Disabled ED ROS GENERAL - Review of Systems Review Of Systems: See Below Constitutional: Denies: Fever, Chills, Fatigue Respiratory: Denies: Shortness of Breath, Cough Cardiovascular: Denies: Chest Pain GI/Abdominal: Denies: Abdominal Pain, Constipation, Nausea, Vomiting Musculoskeletal: Reports: Other (Pain located midaxillary from the 7-9 ribs.) ED EXAM, GENERAL - Physical Exam Exam: See Below Exam Limited By: No Limitations General Appearance: Alert, Mild Distress Respiratory/Chest: Wheezing, Other (Pain on deep inspiration. Located midaxillary from 7-9th ribs. ) Cardiovascular: Regular Rate, Rhythm, No Murmur, No Rub GI/Abdominal: Normal Bowel Sounds, Soft, Tender Skin Exam: Warm, Dry. No: Ecchymosis Departure - Departure Disposition: Home, Self-Care 01 Clinical Impression: Pleuritic chest pain, Multiple lesions of metastatic malignancy - Discharge Information Instructions: Pleurodynia Referrals: Ping Tamez MD [Primary Care Provider] - Forms: ED Department Discharge Additional Instructions: You were evaluated in the ER today for your right-sided rib/chest pain. A chest CT was performed to rule out the possibility of lytic lesions in the bones on this right side, there were no lytic lesions identified on the chest CT however the metastatic lesions with already within your lungs, seem to be enlarging, and there are also other small nodules growing which is suggestive of worsening metastatic disease. It appears that the lesions that are getting bigger, seem to be pushing on the pleural surface of the lung causing your pain. Recommend you increase your Agency intake to 1 tablets 3 times daily for further pain management, increase in a stepwise fashion, if 1 tablet isn't making the pain better, increase to 2 tablets TID, then 2 tabs QID if you are not receiving relief from the 2 tabs TID. I would highly recommend talking with your oncologist or primary care physician for increasing your pain medication, as you will be taking more tablets of this medication. We also strongly recommend, that you start MiraLAX in your daily routine, to help soften your stools, as the medications needed to control your pain relief, do also cause constipation. Please return to the ER at any time if your symptoms change or worsen. Sepsis Event Note (ED) - Evaluation Sepsis Screening Result: No Definite Risk <Romi Ford - Last Filed: 02/27/20 13:44> Course - Vital Signs Last Recorded V/S: Last Vital Signs Temp 97.7 F 02/27/20 11:57 Pulse 72 02/27/20 11:57 Resp 16 02/27/20 11:57 BP 116/59 L 02/27/20 11:57 Pulse Ox 99 02/27/20 11:57 - Orders/Labs/Meds Meds: Medications Discontinued Medications Generic Name Dose Route Start Last Admin Trade Name Rowan PRN Reason Stop Dose Admin Oxycodone/Acetaminophen 2 tab 02/27/20 12:32 02/27/20 12:39 Percocet 325-5 Mg PO 02/27/20 12:33 2 tab ONETIME ONE Administration - Re-Assessments/Exams Free Text/Narrative Re-Assessment/Exam: 02/27/20 12:39 I have read and reviewed the student's HPI and examined the patient and agree with Kip Mohr PA-student. Patient presents for painful inspirations on her right side, due to her history of lung cancer with bone mets, we will get chest CT to rule out bony mets in this area, although her presentation is highly suspicious for more of a deeper pleuritic type pain in nature. She will be given 2 tablets of Percocet 5/325 for pain management at this time. Official radiology read is pending at this time. 02/27/20 12:46 CT has been performed and read preliminarily by Dr. Sanders, He does note a lung mass on her right chest that appears to be pushing on her pleura in the area she is having the pain. This is likely the cause of her pain. I will likely have her discuss pain management options with her oncologist and/or primary care provider. She will likely have to increase her medication intake, or have it switched to a different medication. 02/27/20 13:[address] was compared from 12/16/2019, there are cavitary lesions within the right lung base which is now appearing to be solid, consistent with worsening neoplasm measures at 2.1 cm, and the second enlarging lesion is more inferiorly within the right lung base measuring 2.5 cm which is also felt compatible with worsening neoplasm. There is also multiple small pulmonary nodules within both sides inferior chest believed to represent small metastatic nodules, severe emphysematous change, but no other acute processes noted. There are no lytic lesions noted on the chest CT. I will discussed the findings with the patient, and have her increase her Agency intake, to 1 to 2 tablets 4 times a day to see if this does not help some of her pain. Departure - Departure Time of Disposition: 13:34 Condition: Good - Discharge Information *PRESCRIPTION DRUG MONITORING PROGRAM REVIEWED*: No *COPY OF PRESCRIPTION DRUG MONITORING REPORT IN PATIENT RUFINO: No Sepsis Event Note (ED) - Focused Exam Vital Signs: Vital Signs Temp Pulse Resp BP Pulse Ox 02/27/20 11:57 97.7 F 72 16 116/59 L 99
[2020-02-27] MEDS ORDERED: Acetaminophen/oxyCODONE 325-5 MG Tab PO ONE (12:32)
--- NOTE | 2020-02-27 13:15 | CT ---
CT chest Technique: Multiple axial sections through the chest were obtained. Intravenous contrast was not utilized. Comparison: Prior chest CT study of 12/16/19. Findings: Right-sided infusion port is seen. Mediastinum shows small lymph nodes believed to be within normal limits. Aorta shows no aneurysm. No axillary adenopathy is seen. Small pericardial effusion is noted. Noncontrast appearance of the visualized upper abdomen shows no discrete abnormality. Lung window settings were obtained which show severe emphysematous change. 2 solid abnormalities are seen within the right lung base 1 of which was cavitary on prior study. Findings felt compatible with worsening neoplasm which are pleural-based. Most superior lesion measures 2.1 cm. 2nd abnormality has increased from prior study which is more inferiorly measuring 2.5 cm. Smaller nodules are seen within the right lung base which are most likely due to additional metastatic nodules. Minimal nodules are seen within the left lung base. No acute parenchymal change is otherwise seen. Bone window settings were reviewed which shows scattered degenerative change within the spine. No acute osseous finding is appreciated. Impression: 1. Cavitary lesion within the right lung base is now solid felt mountable with worsening neoplasm. This finding measures 2.1 cm. 2nd enlarging lesion more inferiorly within the right base measuring 2.5 cm which is felt compatible with worsening neoplasm. 2. Multiple small pulmonary nodules within both sides of the inferior chest believed to represent small metastatic nodules. 3. Severe emphysematous change. 4. Nothing acute is appreciated. Diagnostic code #9 This report was dictated in MDT
== END 2020-02-27 14:00 | disposition home or self-care (01) ==
LOC: JD.ED 11:47
DX: G89.3 Neoplasm related pain (acute) (chronic) (principal); C34.91 Malignant neoplasm of unspecified part of right bronchus or lung; C79.51 Secondary malignant neoplasm of bone; R56.9 Unspecified convulsions; F41.9 Anxiety disorder, unspecified; F32.9 Major depressive disorder, single episode, unspecified; J44.9 Chronic obstructive pulmonary disease, unspecified; M41.9 Scoliosis, unspecified; Z87.891 Personal history of nicotine dependence; Z79.899 Other long term (current) drug therapy; Z88.6 Allergy status to analgesic agent
CPT/HCPCS: 71250; 99285; A9270; 99283

== ENCOUNTER 2020-04-14 09:32 | Emergency (ER) | payer MEDICAID ==
[2020-04-14] MEDS ORDERED: Dextrose 5%-0.9% NaCl 1,000 ML IV SCH (10:15)
--- NOTE | 2020-04-14 10:19 | EDM.PDOC ---
<Romi Ford V - Last Filed: 04/14/20 11:41> ED HPI GENERAL MEDICAL PROBLEM - General Chief Complaint: Respiratory Problem Stated Complaint: SOB AND DRY COUGH Time Seen by Provider: 04/14/20 11:10 Source of Information: Reports: Patient, Old Records, RN Notes Reviewed History Limitations: Reports: No Limitations - History of Present Illness INITIAL COMMENTS - FREE TEXT/NARRATIVE: Patient is a 55-year-old female who presents to the ED for the evaluation of her shortness of breath. The patient does have end-stage lung cancer, with mets to her bones and liver. She states that she is on chemo and last had radiation on 08 April. She states that she woke up this morning, feeling subjectively short of breath, like she just could not catch her breath, and she is appreciated a dry hacking cough for which she does not usually have. She is also complaining of a sore throat and a headache. She is not complaining of any nausea or vomiting or diarrhea. O2 sats are 98 to 100% on room air. She states that she is not been around anyone that she is known to be sick. Her daughter recently tested negative for COVID-19. But she states she did go to [place] this weekend, and she states not a lot of people were wearing masks, so she is unsure if any of those were sick. She further denies any fevers or chills. - Related Data Allergies Allergy/AdvReac Type Severity Reaction Status Date / Time paclitaxel [From Taxol] Allergy Severe Seizure Verified 04/14/20 10:03 ketorolac [From Toradol] AdvReac Intermediate Vomiting Verified 02/27/20 12:00 Home Meds: Home Meds traZODone HCl [Trazodone HCl] 150 mg PO BEDTIME 05/19/18 [History] Sertraline [Zoloft] 50 mg PO DAILY 08/14/19 [History] lamoTRIgine 150 mg PO BID 10/26/19 [History] Albuterol Sulfate [Albuterol Sulfate Hfa] 2 puff INH Q4H PRN 12/18/19 [History] Acetaminophen/HYDROcodone [[place] 325-5 MG] 5 - 325 mg PO Q6H PRN 02/22/20 [History] Acetaminophen/HYDROcodone [[place] 325-5 MG] 1 tab PO Q6H PRN #30 tablet 02/27/20 [Rx] Celecoxib 100 mg PO BID 02/27/20 [History] Acetaminophen [Tylenol Arthritis] 2 tab PO ASDIRECTED 04/14/20 [History] Acetaminophen/oxyCODONE [Percocet 325-5 MG] 1 each PO Q6H PRN #20 tab 04/14/20 [Rx] Magnesium Oxide 400 mg PO DAILY 04/14/20 [History] ED ROS GENERAL - Review of Systems Review Of Systems: Comprehensive ROS is negative, except as noted in HPI. ED EXAM, GENERAL - Physical Exam Exam: See Below Exam Limited By: No Limitations General Appearance: Alert, No Apparent Distress, Anxious, Cachetic Eye Exam: Bilateral Eye: Normal Inspection Respiratory/Chest: No Respiratory Distress, Lungs Clear, Normal Breath Sounds, No Accessory Muscle Use, Chest Non-Tender Cardiovascular: Normal Peripheral Pulses, Regular Rate, Rhythm, No Murmur Peripheral Pulses: 2+: Radial (L), Radial (R) Extremities: Normal Inspection, Normal Capillary Refill Neurological: Alert, Oriented, Normal Cognition, No Motor/Sensory Deficits Psychiatric: Normal Affect, Normal Mood, Anxious (states that she is scared, because she is already sick and does not want anything to be wrong) Skin Exam: Warm, Dry, Intact, Normal Color, No Rash EKG INTERPRETATION EKG Date: 04/14/20 Time: 10:46 Rhythm: NSR Rate (Beats/Min): 69 [place]: Normal P-Wave: Present QRS: Normal ST-T: Normal QT: Normal EKG Interpretation Comments: No obvious ischemia or acute ST changes noted, reviewed by myself and Dr. Sanders. He did note some possible Q waves in V1, V2 and T wave inversion. But the patient does have her leads placed in wrong position on exam. They are too high on the chest in V1 and V2, this could possibly make the changes seen on the EKG. Course - Re-Assessments/Exams Free Text/Narrative Re-Assessment/Exam: 04/14/20 11:24 Patient presents to the ED for evaluation of her shortness of breath. Multiple labs were put in by Dr. Sanders, but he had some subsequent traumas and was not able to go see the patient. I was in to evaluate the patient, she is complaining of a lot of pain as well. I do suspect that a lot of her shortness of breath is most likely anxiety in nature. Nonetheless we will try to let labs determine course of action with her. 04/14/20 11:41 Patient's labs have resulted, her white blood cell count is elevated at 23.54, but she does state that this is common for her. Her sed rate is elevated at 108, d-dimer elevated at 0.60, ferritin elevated at 644, ALP elevated at 235, CRP is elevated at 13.8, BNP is elevated 1043, her troponin and CK-MB are negative, UA is negative, and her COVID-19 test done at today's visit is also negative. Most of these lab values can be explained by her cancer process. I do highly suspect that that is why it those labs are elevated. Departure - Departure Time of Disposition: 11:46 Disposition: Home, Self-Care 01 Condition: Good Clinical Impression: Dyspnea Qualifiers: Dyspnea type: unspecified Qualified Code(s): R06.00 - Dyspnea, unspecified Metastatic primary lung cancer Qualifiers: Laterality: right Qualified Code(s): C34.91 - Malignant neoplasm of unspecified part of right bronchus or lung - Discharge Information *PRESCRIPTION DRUG MONITORING PROGRAM REVIEWED*: No *COPY OF PRESCRIPTION DRUG MONITORING REPORT IN PATIENT RUFINO: No Prescriptions: Acetaminophen/oxyCODONE [Percocet 325-5 MG] 1 each PO Q6H PRN #20 tab PRN Reason: Pain Instructions: Shortness of Breath, Adult, [id number] Referrals: Ping Tamez MD [Primary Care Provider] - Forms: ED Department Discharge Additional Instructions: You were evaluated in the ER today regarding your shortness of breath. Although there were multiple abnormalities within your labs, a lot of these can be explained by your cancer. Your COVID-19 test done at our hospital, was negative today. Your O2 sats were also great at 99 200% on room air, which would also correlate with the negative COVID-19 test. Your chest x-ray showed no sign of pneumonia. You were given a prescription for a strong pain medication, oxycodone/acetaminophen 5/325 mg, please take 1 tab every 6 hours as needed for pain not relieved by Tylenol or ibuprofen alone. Please note this medication does contain Tylenol in it, so do not take more than 4000 mg in a 24-hour time span. These medications can be addictive, so please take as few as possible to achieve adequate pain control. These meds can also be quite constipating, recommend that you increase your oral fluid intake and take a stool softener like MiraLAX while taking these medications. Do not drive while taking this medication. As always, please try to limit your interaction with the public, as you do have cancer, and are more susceptible to getting viral diseases like COVID-19. You need to be vigilant about who you are around. If you have to go out in public, please utilize hand rodeo performer and good hand hygiene practices. Wear your mask at all times. Please follow-up with your regular care provider this week as directed, for chemo and otherwise. If the [place] you have been given for pain management is not working well, I highly recommend that you follow-up with your palliative care doctor to request a change in medication. Please return to the ER at any time however if your symptoms change or worsen. <Osmani Sanders - Last Filed: 04/14/20 20:53> ED HPI GENERAL MEDICAL PROBLEM Back Pain Score (Numeric/FACES): 8 Past Medical History HEENT History: Reports: Impaired Vision, Other (See Below) Other HEENT History: wears glasses Cardiovascular History: Reports: None Respiratory History: Reports: COPD, Other (See Below) Other Respiratory History: lung cancer, emphysema Gastrointestinal History: Reports: Hepatitis Other Gastrointestinal History: "cured for hepatitis C", Liver cancer Genitourinary History: Reports: None COFFEE HOST History: Reports: Other COFFEE HOST History: 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 Neurological History: Reports: Migraines, Seizure Psychiatric History: Reports: Anxiety, Depression, Suicide Attempt Endocrine/Metabolic History: Reports: None Hematologic History: Reports: None Immunologic History: Reports: Other (See Below) Other Immunologic History: Hep C- cured? Oncologic (Cancer) History: Reports: Liver, Lung, Metastatic Other Oncologic History: Last chemo-01/02/2020 Dermatologic History: Reports: Other (See Below) Other Dermatologic History: dry skin - Infectious Disease History Infectious Disease History: Reports: Chicken Pox, Hepatitis C Other Infectious Disease History: had treatment and now is clear since November. - Past Surgical History HEENT Surgical History: Reports: Oral Surgery Other HEENT Surgeries/Procedures: upper dentures in pt mouth Respiratory Surgical History: Reports: None GI Surgical History: Reports: Appendectomy, Cholecystectomy Female Surgical History: Reports: Hysterectomy Neurological Surgical History: Reports: None Musculoskeletal Surgical History: Reports: None Social & Family History - Family History Family Medical History: Noncontributory Cardiac: Reports: CAD Oncologic: Reports: Breast - Tobacco Use Smoking Status *Q: Former Smoker Used Tobacco, but Quit: Yes Month/Year Tobacco Last Used: 2019 - Caffeine Use Caffeine Use: Reports: Coffee, Soda Other Caffeine Use: 2 cups a day sometimes 3 - Recreational Drug Use Recreational Drug Use: No - Living Situation & Occupation Living situation: Reports: , with Family (Daughter, her 2 kids, and her boyfriend) Occupation: Disabled Course - Vital Signs Last Recorded V/S: Last Vital Signs Temp 36.3 C 04/14/20 11:46 Pulse 77 04/14/20 11:46 Resp 18 04/14/20 11:46 BP 88/83 L 04/14/20 11:46 Pulse Ox 96 04/14/20 11:46 - Orders/Labs/Meds Orders: Active Orders 24 hr Category Date Time Status CULTURE BLOOD [BC] Stat Lab 04/14/20 10:30 Received CULTURE BLOOD [BC] Stat Lab 04/14/20 10:39 Received Blood Culture x2 Reflex Set [OM.PC] Stat Oth 04/14/20 10:09 Ordered Labs: Laboratory Tests 04/14/20 04/14/20 04/14/20 Range/Units 10:30 10:30 10:30 WBC 23.54 H (3.98-10.04) K/mm3 RBC 2.89 L (3.98-5.22) M/mm3 Hgb 7.6 L (11.2-15.7) gm/dl Hct 25.3 L (34.1-44.9) % MCV 87.5 D (79.4-94.8) fl MCH 26.3 (25.6-32.2) pg MCHC 30.0 L (32.2-35.5) g/dl RDW Std Deviation 46.0 (36.4-46.3) fL Plt Count 563 H D (182-369) K/mm3 MPV 8.1 L (9.4-12.3) fl Neut % (Auto) 82.4 H (34.0-71.1) % Lymph % (Auto) 5.5 L (19.3-51.7) % [place] % (Auto) 11.6 (4.7-12.5) % Eos % (Auto) 0 L (0.7-5.8) Baso % (Auto) 0.1 (0.1-1.2) % Neut # (Auto) 19.39 H (1.56-6.13) K/mm3 Lymph # (Auto) 1.30 (1.18-3.74) K/mm3 [place] # (Auto) 2.72 H (0.24-0.36) K/mm3 Eos # (Auto) 0.01 L (0.04-0.36) K/mm3 Baso # (Auto) 0.03 (0.01-0.08) K/mm3 Manual Slide Review Abnormal smear ESR (0-20) mm/hr PT 10.8 (9.7-12.0) SECONDS INR 1.01 APTT 31 (22-31) SECONDS D-Dimer, Quantitative (0.19-0.50) mg/L Sodium 134 L (136-145) mEq/L Potassium 4.2 (3.5-5.1) mEq/L Chloride 100 (98-107) mEq/L Carbon Dioxide 27 (21-32) mEq/L Anion Gap 11.2 (5-15) BUN 12 (7-18) mg/dL Creatinine 0.7 (0.55-1.02) mg/dL Est Cr Clr Drug Dosing 71.53 mL/min Estimated GFR (MDRD) > 60 (>60) mL/min BUN/Creatinine Ratio 17.1 (14-18) Glucose 63 L (74-106) mg/dL Calcium 9.0 (8.5-10.1) mg/dL Magnesium 2.1 (1.8-2.4) mg/dl Ferritin (8-252) ng/ml Total Bilirubin 0.2 (0.2-1.0) mg/dL AST 13 L (15-37) U/L ALT 14 (14-59) U/L Alkaline Phosphatase 235 H (46-116) U/L Lactate Dehydrogenase 145 (81-234) U/L CK-MB (CK-2) 0.5 (0-3.6) ng/ml Troponin I < 0.017 (0.00-0.056) ng/mL C-Reactive Protein 13.8 H* (<1.0) mg/dL NT-Pro-B Natriuret Pep (0-125) pg/mL Total Protein 7.2 (6.4-8.2) g/dl Albumin 2.7 L (3.4-5.0) g/dl Globulin 4.5 gm/dL Albumin/Globulin Ratio 0.6 L (1-2) Urine Color (Yellow) Urine Appearance (Clear) Urine pH (5.0-8.0) Ur Specific [place] (1.005-1.030) Urine Protein (Negative) Urine Glucose (UA) (Negative) Urine Ketones (Negative) Urine Occult Blood (Negative) Urine Nitrite (Negative) Urine Bilirubin (Negative) Urine Urobilinogen (0.2-1.0) Ur Leukocyte Esterase (Negative) Urine RBC (0-5) /hpf Urine WBC (0-5) /hpf Ur Squamous Epith Cells (0-5) /hpf Urine Bacteria (FEW) /hpf Urine Mucus (FEW) /hpf COVID-19 (ROWDY) (NEGATIVE) 04/14/20 04/14/20 04/14/20 Range/Units 10:30 10:30 10:30 WBC (3.98-10.04) K/mm3 RBC (3.98-5.22) M/mm3 Hgb (11.2-15.7) gm/dl Hct (34.1-44.9) % MCV (79.4-94.8) fl MCH (25.6-32.2) pg MCHC (32.2-35.5) g/dl RDW Std Deviation (36.4-46.3) fL Plt Count (182-369) K/mm3 MPV (9.4-12.3) fl Neut % (Auto) (34.0-71.1) % Lymph % (Auto) (19.3-51.7) % [place] % (Auto) (4.7-12.5) % Eos % (Auto) (0.7-5.8) Baso % (Auto) (0.1-1.2) % Neut # (Auto) (1.56-6.13) K/mm3 Lymph # (Auto) (1.18-3.74) K/mm3 [place] # (Auto) (0.24-0.36) K/mm3 Eos # (Auto) (0.04-0.36) K/mm3 Baso # (Auto) (0.01-0.08) K/mm3 Manual Slide Review ESR 108 H (0-20) mm/hr PT (9.7-12.0) SECONDS INR APTT (22-31) SECONDS D-Dimer, Quantitative 0.60 H (0.19-0.50) mg/L Sodium (136-145) mEq/L Potassium (3.5-5.1) mEq/L Chloride (98-107) mEq/L Carbon Dioxide (21-32) mEq/L Anion Gap (5-15) BUN (7-18) mg/dL Creatinine (0.55-1.02) mg/dL Est Cr Clr Drug Dosing mL/min Estimated GFR (MDRD) (>60) mL/min BUN/Creatinine Ratio (14-18) Glucose (74-106) mg/dL Calcium (8.5-10.1) mg/dL Magnesium (1.8-2.4) mg/dl Ferritin (8-252) ng/ml Total Bilirubin (0.2-1.0) mg/dL AST (15-37) U/L ALT (14-59) U/L Alkaline Phosphatase (46-116) U/L Lactate Dehydrogenase (81-234) U/L CK-MB (CK-2) (0-3.6) ng/ml Troponin I (0.00-0.056) ng/mL C-Reactive Protein (<1.0) mg/dL NT-Pro-B Natriuret Pep 1043 H (0-125) pg/mL Total Protein (6.4-8.2) g/dl Albumin (3.4-5.0) g/dl Globulin gm/dL Albumin/Globulin Ratio (1-2) Urine Color (Yellow) Urine Appearance (Clear) Urine pH (5.0-8.0) Ur Specific [place] (1.005-1.030) Urine Protein (Negative) Urine Glucose (UA) (Negative) Urine Ketones (Negative) Urine Occult Blood (Negative) Urine Nitrite (Negative) Urine Bilirubin (Negative) Urine Urobilinogen (0.2-1.0) Ur Leukocyte Esterase (Negative) Urine RBC (0-5) /hpf Urine WBC (0-5) /hpf Ur Squamous Epith Cells (0-5) /hpf Urine Bacteria (FEW) /hpf Urine Mucus (FEW) /hpf COVID-19 (ROWDY) (NEGATIVE) 04/14/20 04/14/20 04/14/20 Range/Units 10:30 10:40 10:45 WBC (3.98-10.04) K/mm3 RBC (3.98-5.22) M/mm3 Hgb (11.2-15.7) gm/dl Hct (34.1-44.9) % MCV (79.4-94.8) fl MCH (25.6-32.2) pg MCHC (32.2-35.5) g/dl RDW Std Deviation (36.4-46.3) fL Plt Count (182-369) K/mm3 MPV (9.4-12.3) fl Neut % (Auto) (34.0-71.1) % Lymph % (Auto) (19.3-51.7) % [place] % (Auto) (4.7-12.5) % Eos % (Auto) (0.7-5.8) Baso % (Auto) (0.1-1.2) % Neut # (Auto) (1.56-6.13) K/mm3 Lymph # (Auto) (1.18-3.74) K/mm3 [place] # (Auto) (0.24-0.36) K/mm3 Eos # (Auto) (0.04-0.36) K/mm3 Baso # (Auto) (0.01-0.08) K/mm3 Manual Slide Review ESR (0-20) mm/hr PT (9.7-12.0) SECONDS INR APTT (22-31) SECONDS D-Dimer, Quantitative (0.19-0.50) mg/L Sodium (136-145) mEq/L Potassium (3.5-5.1) mEq/L Chloride (98-107) mEq/L Carbon Dioxide (21-32) mEq/L Anion Gap (5-15) BUN (7-18) mg/dL Creatinine (0.55-1.02) mg/dL Est Cr Clr Drug Dosing mL/min Estimated GFR (MDRD) (>60) mL/min BUN/Creatinine Ratio (14-18) Glucose (74-106) mg/dL Calcium (8.5-10.1) mg/dL Magnesium (1.8-2.4) mg/dl Ferritin 644 H (8-252) ng/ml Total Bilirubin (0.2-1.0) mg/dL AST (15-37) U/L ALT (14-59) U/L Alkaline Phosphatase (46-116) U/L Lactate Dehydrogenase (81-234) U/L CK-MB (CK-2) (0-3.6) ng/ml Troponin I (0.00-0.056) ng/mL C-Reactive Protein (<1.0) mg/dL NT-Pro-B Natriuret Pep (0-125) pg/mL Total Protein (6.4-8.2) g/dl Albumin (3.4-5.0) g/dl Globulin gm/dL Albumin/Globulin Ratio (1-2) Urine Color Yellow (Yellow) Urine Appearance Clear (Clear) Urine pH 7.0 (5.0-8.0) Ur Specific [place] 1.010 (1.005-1.030) Urine Protein Negative (Negative) Urine Glucose (UA) Negative (Negative) Urine Ketones Negative (Negative) Urine Occult Blood Negative (Negative) Urine Nitrite Negative (Negative) Urine Bilirubin Negative (Negative) Urine Urobilinogen 0.2 (0.2-1.0) Ur Leukocyte Esterase Negative (Negative) Urine RBC 0-5 (0-5) /hpf Urine WBC 0-5 (0-5) /hpf Ur Squamous Epith Cells 0-5 (0-5) /hpf Urine Bacteria Rare (FEW) /hpf Urine Mucus Not seen (FEW) /hpf COVID-19 (ROWDY) Negative (NEGATIVE) Meds: Medications Discontinued Medications Generic Name Dose Route Start Last Admin Trade Name Freq PRN Reason Stop Dose Admin Heparin Sodium (Porcine) 500 units 04/14/20 11:54 04/14/20 12:09 Heparin Lock Flush 100 Units/Ml FLUSH 04/14/20 11:55 500 units ONETIME ONE Administration Hydromorphone HCl 1 mg 04/14/20 11:20 04/14/20 11:39 Dilaudid IVPUSH 04/14/20 11:21 1 mg ONETIME ONE Administration Dextrose/Sodium Chloride 1,000 mls @ 150 mls/hr 04/14/20 10:15 04/14/20 10:37 Dextrose 5%-Normal Saline IV 150 mls/hr ASDIRECTED IVONNE Administration Ondansetron HCl 4 mg 04/14/20 11:20 04/14/20 11:39 Zofran IVPUSH 04/14/20 11:21 4 mg ONETIME ONE Administration Sepsis Event Note (ED) - Evaluation Sepsis Screening Result: No Definite Risk - Focused Exam Vital Signs: Vital Signs Temp Pulse Resp BP Pulse Ox 04/14/20 11:46 36.3 C 77 18 88/83 L 96 04/14/20 09:58 36.2 C 84 18 103/51 L 99 - My Orders Last 24 Hours: My Active Orders 04/14/20 10:09 Blood Culture x2 Reflex Set [OM.PC] Stat 04/14/20 10:30 CULTURE BLOOD [BC] Stat 04/14/20 10:39 CULTURE BLOOD [BC] Stat - Assessment/Plan Last 24 Hours: My Active Orders 04/14/20 10:09 Blood Culture x2 Reflex Set [OM.PC] Stat 04/14/20 10:30 CULTURE BLOOD [BC] Stat 04/14/20 10:39 CULTURE BLOOD [BC] Stat
[2020-04-14] MEDS ORDERED: HYDROmorphone 1 MG/ML Syringe IVPUSH ONE (11:20)
[2020-04-14] MEDS ORDERED: Ondansetron 4 MG/2 ML SDV IVPUSH ONE (11:20)
--- NOTE | 2020-04-14 11:41 | CR ---
Chest: Portable view of the chest was obtained. Comparison: Prior chest x-ray of 01/08/20. Prior chest CT study of 02/27/20. Masslike density is noted within the right lung base. Lungs otherwise are clear. Bony structures are grossly intact. Right-sided infusion catheter is seen. Impression: 1. Masslike density within the right lung base which is more consolidated than on prior study. This most likely represents neoplasm. This finding measures approximately 2.3 cm. This finding is seen on prior chest CT. 2. Nothing acute is otherwise appreciated. Diagnostic code #9 This report was dictated in MDT
== END 2020-04-14 12:24 | disposition home or self-care (01) ==
LOC: JD.ED 09:32
DX: C34.91 Malignant neoplasm of unspecified part of right bronchus or lung (principal); Z88.6 Allergy status to analgesic agent; Z88.8 Allergy status to other drugs, medicaments and biological substances; Z79.899 Other long term (current) drug therapy; Z20.828 Contact with and (suspected) exposure to other viral communicable diseases; C79.51 Secondary malignant neoplasm of bone; C78.7 Secondary malignant neoplasm of liver and intrahepatic bile duct
CPT/HCPCS: 36415; 71045; 80053; 81001; 82553; 82728; 83615; 83735; 83880; 84484; 85025; 85379; 85610; 85652; 85730; 86140; 87040; 87635; 93005; 96361; 96374; 96375; 99285; J1170; J1642; J2405; J7042; 93010; 99283; U0002

== ENCOUNTER 2020-04-19 11:46 | Emergency (ER) | payer MEDICAID ==
--- NOTE | 2020-04-19 11:58 | EDM.PDOC ---
ED HPI GENERAL MEDICAL PROBLEM - General Chief Complaint: General Stated Complaint: HEADACHE/SORE THROA/DIZZY Time Seen by Provider: 04/19/20 11:57 - History of Present Illness INITIAL COMMENTS - FREE TEXT/NARRATIVE: 55-year-old female presents the emergency room with sore throat headache dizziness and fever. This all started roughly 2 days ago. 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 She just finished her radiation treatment series. She had chemo several days ago. She gets headaches on a regular basis this was different and seems involve the whole head but the worst area is where she normally has some which is been the radiation site on the right occiput. She seems to have some dizziness brought on by change in position. Headache Pain Score (Numeric/FACES): 9 - Related Data Allergies Allergy/AdvReac Type Severity Reaction Status Date / Time paclitaxel [From Taxol] Allergy Severe Seizure Verified 04/19/20 12:00 ketorolac [From Toradol] AdvReac Intermediate Vomiting Verified 04/19/20 12:00 Home Meds: Home Meds traZODone HCl [Trazodone HCl] 150 mg PO BEDTIME 05/19/18 [History] Sertraline [Zoloft] 50 mg PO DAILY 08/14/19 [History] lamoTRIgine 150 mg PO BID 10/26/19 [History] Albuterol Sulfate [Albuterol Sulfate Hfa] 2 puff INH Q4H PRN 12/18/19 [History] Acetaminophen/HYDROcodone [[place] 325-5 MG] 5 - 325 mg PO Q6H PRN 02/22/20 [History] Acetaminophen/HYDROcodone [[place] 325-5 MG] 1 tab PO Q6H PRN #30 tablet 02/27/20 [Rx] Celecoxib 100 mg PO BID 02/27/20 [History] Acetaminophen [Tylenol Arthritis] 2 tab PO ASDIRECTED 04/14/20 [History] Acetaminophen/oxyCODONE [Percocet 325-5 MG] 1 each PO Q6H PRN #20 tab 04/14/20 [Rx] Magnesium Oxide 400 mg PO DAILY 04/14/20 [History] Doxycycline [Vibramycin] 100 mg PO BID #14 cap 04/19/20 [Rx] Past Medical History HEENT History: Reports: Impaired Vision, Other (See Below) Other HEENT History: wears glasses Cardiovascular History: Reports: None Respiratory History: Reports: COPD, Other (See Below) Other Respiratory History: lung cancer, emphysema Gastrointestinal History: Reports: Hepatitis Other Gastrointestinal History: "cured for hepatitis C", Liver cancer Genitourinary History: Reports: None 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 Neurological History: Reports: Migraines, Seizure Psychiatric History: Reports: Anxiety, Depression, Suicide Attempt Endocrine/Metabolic History: Reports: None Hematologic History: Reports: None Immunologic History: Reports: Other (See Below) Other Immunologic History: Hep C- cured? Oncologic (Cancer) History: Reports: Liver, Lung, Metastatic Other Oncologic History: Last chemo-01/02/2020 Dermatologic History: Reports: Other (See Below) Other Dermatologic History: dry skin - Infectious Disease History Infectious Disease History: Reports: Chicken Pox, Hepatitis C Other Infectious Disease History: had treatment and now is clear since November. - Past Surgical History HEENT Surgical History: Reports: Oral Surgery Other HEENT Surgeries/Procedures: upper dentures in pt mouth Respiratory Surgical History: Reports: None GI Surgical History: Reports: Appendectomy, Cholecystectomy Female Surgical History: Reports: Hysterectomy Neurological Surgical History: Reports: None Musculoskeletal Surgical History: Reports: None Social & Family History - Family History Family Medical History: Noncontributory Cardiac: Reports: CAD Oncologic: Reports: Breast - Caffeine Use Caffeine Use: Reports: Coffee, Soda Other Caffeine Use: 2 cups a day sometimes 3 - Living Situation & Occupation Living situation: Reports: , with Family (Daughter, her 2 kids, and her boyfriend) Occupation: Disabled ED ROS GENERAL - Review of Systems Review Of Systems: See Below Constitutional: Reports: Fever. Denies: Chills HEENT: Reports: Throat Pain Respiratory: Reports: Cough, Sputum Cardiovascular: Denies: Chest Pain Endocrine: Reports: No Symptoms GI/Abdominal: Reports: No Symptoms : Reports: No Symptoms ED EXAM, GENERAL - Physical Exam Exam: See Below Exam Limited By: No Limitations General Appearance: Alert, No Apparent Distress Ears: Normal External Exam, Normal Canal, Hearing Grossly Normal, Normal TMs Nose: Normal Inspection, Normal Mucosa, No Blood Throat/Mouth: Normal Inspection, Normal Lips, Normal Oropharynx, Normal Voice, No Airway Compromise Head: Other (Over the lower margin of the right occiput the patient has discoloration where she received radiation therapy and this seems to be the center of her pain but she describes the pain is radiating all over her head.) Respiratory/Chest: No Respiratory Distress, Lungs Clear, Decreased Breath Sounds. No: Crackles, Rales, Rhonchi, Wheezing Cardiovascular: Regular Rate, Rhythm, No Edema, No Murmur GI/Abdominal: Normal Bowel Sounds, Soft, Non-Tender Back Exam: Normal Inspection. No: CVA Tenderness (L), CVA Tenderness (R) Extremities: Normal Inspection, No Pedal Edema Neurological: Alert, Oriented, Normal Cognition Course - Vital Signs Last Recorded V/S: Last Vital Signs Temp 36.5 C 04/19/20 11:56 Pulse 88 04/19/20 11:56 Resp 16 04/19/20 11:56 BP 103/55 L 04/19/20 11:56 Pulse Ox 93 L 04/19/20 11:56 - Orders/Labs/Meds Orders: Active Orders 24 hr Category Date Time Status CORONAVIRUS COVID-19 PCR PHL Stat Lab 04/19/20 13:18 Received CULTURE STREP A CONFIRMATION [RM] Stat Lab 04/19/20 15:31 Results Rapid Strep w/culture conf [STREP SCRN A RAPID W CULT Lab 04/19/20 15:31 Results CONF] [] Stat Labs: Laboratory Tests 04/19/20 04/19/20 04/19/20 Range/Units 12:55 12:55 13:00 WBC 20.82 H (3.98-10.04) K/mm3 RBC 3.30 L (3.98-5.22) M/mm3 Hgb 8.7 L (11.2-15.7) gm/dl Hct 28.6 L (34.1-44.9) % MCV 86.7 (79.4-94.8) fl MCH 26.4 (25.6-32.2) pg MCHC 30.4 L (32.2-35.5) g/dl RDW Std Deviation 46.9 H (36.4-46.3) fL Plt Count 360 D (182-369) K/mm3 MPV 8.9 L (9.4-12.3) fl Neutrophils % (Manual) 85 H (40-60) % Band Neutrophils % 0 (0-10) % Lymphocytes % (Manual) 13 L (20-40) % Atypical Lymphs % 0 % Monocytes % (Manual) 0 L (2-10) % Eosinophils % (Manual) 2 (0.7-5.8) % Basophils % (Manual) 0 L (0.1-1.2) Platelet Estimate Adequate Hypochromasia 1+ slight Anisocytosis 1+ slight Target Cells 1+ slight Tear Drop Cells 1+ slight RBC Morph Comment Not Reportable Sodium 131 L (136-145) mEq/L Potassium 4.1 (3.5-5.1) mEq/L Chloride 97 L (98-107) mEq/L Carbon Dioxide 28 (21-32) mEq/L Anion Gap 10.1 (5-15) BUN 13 (7-18) mg/dL Creatinine 0.8 (0.55-1.02) mg/dL Est Cr Clr Drug Dosing 64.86 mL/min Estimated GFR (MDRD) > 60 (>60) mL/min BUN/Creatinine Ratio 16.3 (14-18) Glucose 98 (74-106) mg/dL Calcium 8.4 L (8.5-10.1) mg/dL Total Bilirubin 0.8 (0.2-1.0) mg/dL AST 17 (15-37) U/L ALT 15 (14-59) U/L Alkaline Phosphatase 204 H (46-116) U/L Total Protein 6.9 (6.4-8.2) g/dl Albumin 2.6 L (3.4-5.0) g/dl Globulin 4.3 gm/dL Albumin/Globulin Ratio 0.6 L (1-2) Urine Color Yellow (Yellow) Urine Appearance Clear (Clear) Urine pH 7.0 (5.0-8.0) Ur Specific [place] 1.015 (1.005-1.030) Urine Protein Negative (Negative) Urine Glucose (UA) Negative (Negative) Urine Ketones Negative (Negative) Urine Occult Blood Negative (Negative) Urine Nitrite Negative (Negative) Urine Bilirubin Negative (Negative) Urine Urobilinogen 0.2 (0.2-1.0) Ur Leukocyte Esterase Negative (Negative) Meds: Medications Discontinued Medications Generic Name Dose Route Start Last Admin Trade Name Freq PRN Reason Stop Dose Admin Diphenhydramine HCl 25 mg 04/19/20 12:44 04/19/20 13:15 Benadryl IVPUSH 04/19/20 12:45 25 mg ONETIME ONE Administration Lactated Ringer's 1,000 mls @ 999 mls/hr 04/19/20 12:43 04/19/20 13:15 Ringers, Lactated IV 04/19/20 13:43 999 mls/hr .BOLUS ONE Administration Ondansetron HCl 4 mg 04/19/20 12:31 04/19/20 12:48 Zofran Odt PO 04/19/20 12:32 4 mg ONETIME ONE Administration - Re-Assessments/Exams Free Text/Narrative Re-Assessment/Exam: 04/19/20 15:07 I discussed situation with Dr. Vides on-call neurologist at [facility] in [place]. Her thoughts were that the elevated white count is most likely due to the steroids she received while getting chemotherapy. She agrees with a week's course of doxycycline and she should follow-up with Dr. St early this next week if needed. 04/19/20 15:13 Awaiting rapid strep 04/19/20 16:05 Rapid strep is negative, will discharge at this time. Departure - Departure Time of Disposition: 15:08 Disposition: Home, Self-Care 01 Clinical Impression: Pneumonia, Non-small cell lung cancer metastatic to bone - Discharge Information Prescriptions: Doxycycline [Vibramycin] 100 mg PO BID #14 cap Referrals: Ping Tamez MD [Primary Care Provider] - Forms: ED Department Discharge Additional Instructions: Return to the emergency room with any questions problems or worsening symptoms. You have been started on doxycycline, this is an antibiotic, take 1 twice daily until all gone. Follow-up with your oncologist early this next week to let them know how you are doing. And to be seen in the clinic if needed. Sepsis Event Note (ED) - Focused Exam Vital Signs: Vital Signs Temp Pulse Resp BP Pulse Ox 04/19/20 11:56 36.5 C 88 16 103/55 L 93 L - My Orders Last 24 Hours: My Active Orders 04/19/20 13:18 CORONAVIRUS COVID-19 PCR PHL Stat 04/19/20 15:31 CULTURE STREP A CONFIRMATION [RM] Stat Rapid Strep w/culture conf [STREP SCRN A RAPID W CULT CONF] [RM] Stat - Assessment/Plan Last 24 Hours: My Active Orders 04/19/20 13:18 CORONAVIRUS COVID-19 PCR PHL Stat 04/19/20 15:31 CULTURE STREP A CONFIRMATION [RM] Stat Rapid Strep w/culture conf [STREP SCRN A RAPID W CULT CONF] [RM] Stat
[2020-04-19] MEDS ORDERED: Ondansetron 4 MG Tab.DIS PO ONE (12:31)
[2020-04-19] MEDS ORDERED: Lactated Ringers 1,000 ML IV ONE (12:43)
[2020-04-19] MEDS ORDERED: diphenhydrAMINE 50 MG/ML SDV IVPUSH ONE (12:44)
--- NOTE | 2020-04-19 13:00 | CR ---
Chest: Portable view of the chest was obtained. Comparison: Prior chest x-ray of 04/14/20 Increased density seen within the right mid to lower lung. This is around and area of previously noted masslike density. Masslike densities does not appear to be unchanged in size from previous study. Right-sided infusion catheter is seen. Lungs otherwise are clear. Heart size and mediastinum are normal. Minimal scoliosis is noted. Impression: 1. Slight increased density around masslike area within the right mid to lower lung. Please correlate if patient has had interval treatment of this area for current findings to represent posttreatment change. If no prior treatment is present, difficult to exclude superimposed area of pneumonia. 2. Other stable findings as noted above. Diagnostic code #3 This report was dictated in MDT
== END 2020-04-19 16:26 | disposition home or self-care (01) ==
LOC: JD.ED 11:46
DX: J18.9 Pneumonia, unspecified organism (principal); C34.90 Malignant neoplasm of unspecified part of unspecified bronchus or lung; J43.9 Emphysema, unspecified; C79.51 Secondary malignant neoplasm of bone; M19.90 Unspecified osteoarthritis, unspecified site; F41.9 Anxiety disorder, unspecified; F32.9 Major depressive disorder, single episode, unspecified; Z88.6 Allergy status to analgesic agent; Z88.8 Allergy status to other drugs, medicaments and biological substances; Z79.899 Other long term (current) drug therapy; Z20.828 Contact with and (suspected) exposure to other viral communicable diseases
CPT/HCPCS: 36415; 71045; 80053; 81003; 85007; 85027; 87081; 87430; 87635; 96361; 96374; 99284; A9270; J1200; J7120; 99283; U0002

== ENCOUNTER 2020-04-22 08:54 | Emergency (ER) | payer MEDICAID ==
--- NOTE | 2020-04-22 09:57 | EDM.PDOC ---
ED HPI GENERAL MEDICAL PROBLEM - General Chief Complaint: ENT Problem Stated Complaint: POSS ALLERGIC REACTION TO ANTIBIOTICS Time Seen by Provider: 04/22/20 09:57 - History of Present Illness INITIAL COMMENTS - FREE TEXT/NARRATIVE: 55-year-old female presents the emergency room with possible allergic reaction to doxycycline. Patient was started on doxycycline 3 days ago for suspected early developing pneumonia visualized on chest x-ray. The patient has developed mid and upper abdominal discomfort and has had some swallowing difficulties this morning she could not swallow her pills very well. The patient has small cell cancer in the lungs with metastatic disease to the skull. She is completed radiation therapy and is still working on chemotherapy for this. I had the opportunity to evaluate the patient on Tuesday. It was suspected she had a developing pneumonia around her tumor and after discussion with oncology she was started on doxycycline. The patient is concerned that maybe she is having allergic reacti on to the doxycycline and she is having increased difficulty swallowing. She has not developed any shortness of breath she is drinking water without difficulty she has a painful sensation when she tries to eat. Her symptom complex started yesterday and is getting worse. Throat Pain Score (Numeric/FACES): 8 - Related Data Allergies Allergy/AdvReac Type Severity Reaction Status Date / Time paclitaxel [From Taxol] Allergy Severe Seizure Verified 04/22/20 09:20 ketorolac [From Toradol] AdvReac Intermediate Vomiting Verified 04/22/20 09:20 Home Meds: Home Meds traZODone HCl [Trazodone HCl] 150 mg PO BEDTIME 05/19/18 [History] Sertraline [Zoloft] 50 mg PO DAILY 08/14/19 [History] lamoTRIgine 150 mg PO BID 10/26/19 [History] Albuterol Sulfate [Albuterol Sulfate Hfa] 2 puff INH Q4H PRN 12/18/19 [History] Acetaminophen/HYDROcodone [[place] 325-5 MG] 5 - 325 mg PO Q6H PRN 02/22/20 [History] Acetaminophen/HYDROcodone [[place] 325-5 MG] 1 tab PO Q6H PRN #30 tablet 02/27/20 [Rx] Celecoxib 100 mg PO BID 02/27/20 [History] Acetaminophen [Tylenol Arthritis] 2 tab PO ASDIRECTED 04/14/20 [History] Acetaminophen/oxyCODONE [Percocet 325-5 MG] 1 each PO Q6H PRN #20 tab 04/14/20 [Rx] Magnesium Oxide 400 mg PO DAILY 04/14/20 [History] Doxycycline [Vibramycin] 100 mg PO BID #14 cap 04/19/20 [Rx] levoFLOXacin [Levaquin] 750 mg PO Q24H #7 tablet 04/22/20 [Rx] Past Medical History HEENT History: Reports: Impaired Vision, Other (See Below) Other HEENT History: wears glasses Cardiovascular History: Reports: None Respiratory History: Reports: COPD, Other (See Below) Other Respiratory History: lung cancer, emphysema Gastrointestinal History: Reports: Hepatitis Other Gastrointestinal History: "cured for hepatitis C", Liver cancer Genitourinary History: Reports: None 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 Neurological History: Reports: Migraines, Seizure Psychiatric History: Reports: Anxiety, Depression, Suicide Attempt Endocrine/Metabolic History: Reports: None Hematologic History: Reports: None Immunologic History: Reports: Other (See Below) Other Immunologic History: Hep C- cured? Oncologic (Cancer) History: Reports: Liver, Lung, Metastatic Other Oncologic History: Last chemo-01/02/2020 Dermatologic History: Reports: Other (See Below) Other Dermatologic History: dry skin - Infectious Disease History Infectious Disease History: Reports: Chicken Pox, Hepatitis C Other Infectious Disease History: had treatment and now is clear since November. - Past Surgical History HEENT Surgical History: Reports: Oral Surgery Other HEENT Surgeries/Procedures: upper dentures in pt mouth Respiratory Surgical History: Reports: None GI Surgical History: Reports: Appendectomy, Cholecystectomy Female Surgical History: Reports: Hysterectomy Neurological Surgical History: Reports: None Musculoskeletal Surgical History: Reports: None Social & Family History - Family History Family Medical History: Noncontributory Cardiac: Reports: CAD Oncologic: Reports: Breast - Tobacco Use Smoking Status *Q: Former Smoker Used Tobacco, but Quit: Yes Month/Year Tobacco Last Used: 2009 - Caffeine Use Caffeine Use: Reports: None Other Caffeine Use: 2 cups a day sometimes 3 - Recreational Drug Use Recreational Drug Use: No - Living Situation & Occupation Living situation: Reports: , with Family (Daughter, her 2 kids, and her boyfriend) Occupation: Disabled ED ROS ENT - Review of Systems Review Of Systems: See Below Constitutional: Reports: No Symptoms HEENT: Reports: No Symptoms Respiratory: Reports: No Symptoms Cardiovascular: Reports: Other (Vague midline discomfort) GI/Abdominal: Reports: Abdominal Pain, Nausea. Denies: Constipation, Diarrhea, Vomiting Musculoskeletal: Reports: No Symptoms Skin: Reports: No Symptoms Neurological: Reports: No Symptoms ED EXAM, ENT - Physical Exam Exam: See Below Exam Limited By: No Limitations General Appearance: Alert, No Apparent Distress Eye Exam: Bilateral Eye: Normal Inspection Ears: Normal External Exam, Normal Canal, Hearing Grossly Normal, Normal TMs Nose: Normal Inspection, Normal Mucousa, No Blood Mouth/Throat: Normal Inspection, Normal Gums, Normal Lips, Normal Oropharynx, Normal Teeth Head: Atraumatic, Normocephalic, Other (Radiation skin changes right lower occipital scalp she is losing her hair most likely due to the chemo now and has the changes from the radiation that she has done with) Neck: Normal Inspection, Supple, Non-Tender, Full Range of Motion Respiratory/Chest: No Respiratory Distress, Lungs Clear, Normal Breath Sounds Cardiovascular: Regular Rate, Rhythm, No Edema, No Murmur GI/Abdominal: Normal Bowel Sounds, Soft, Other (Vague mid epigastric discomfort and supraumbilical discomfort) Back: Normal Inspection. No: CVA Tenderness (L), CVA Tenderness (R) Extremities: Normal Inspection, Normal Range of Motion, Non-Tender Neurological: Alert, Oriented, Normal Cognition EKG INTERPRETATION EKG Date: 04/22/20 Rhythm: NSR Rate (Beats/Min): 84 [place]: Normal P-Wave: Present QRS: Normal ST-T: Other (Mostly normal she has inverted T waves in V2 and V1) QT: Normal Course - Vital Signs Last Recorded V/S: Last Vital Signs Temp 38.0 C 04/22/20 14:58 Pulse 77 04/22/20 09:16 Resp 20 04/22/20 09:16 BP 104/54 L 04/22/20 09:16 Pulse Ox 99 04/22/20 09:16 - Orders/Labs/Meds Orders: Active Orders 24 hr Category Date Time Status EKG Documentation Completion [RC] STAT Care 04/22/20 12:09 Active Labs: Laboratory Tests 04/22/20 04/22/20 04/22/20 Range/Units 12:03 12:03 12:03 WBC 6.67 (3.98-10.04) K/mm3 RBC 3.22 L (3.98-5.22) M/mm3 Hgb 8.4 L (11.2-15.7) gm/dl Hct 27.7 L (34.1-44.9) % MCV 86.0 (79.4-94.8) fl MCH 26.1 (25.6-32.2) pg MCHC 30.3 L (32.2-35.5) g/dl RDW Std Deviation 46.4 H (36.4-46.3) fL Plt Count 380 H (182-369) K/mm3 MPV 8.6 L (9.4-12.3) fl Neut % (Auto) 76.9 H (34.0-71.1) % Lymph % (Auto) 12.1 L (19.3-51.7) % [place] % (Auto) 8.5 (4.7-12.5) % Eos % (Auto) 0 L (0.7-5.8) Baso % (Auto) 1.8 H (0.1-1.2) % Neut # (Auto) 5.12 (1.56-6.13) K/mm3 Lymph # (Auto) 0.81 L (1.18-3.74) K/mm3 [place] # (Auto) 0.57 H (0.24-0.36) K/mm3 Eos # (Auto) 0.00 L (0.04-0.36) K/mm3 Baso # (Auto) 0.12 H (0.01-0.08) K/mm3 Sodium 134 L (136-145) mEq/L Potassium 4.7 (3.5-5.1) mEq/L Chloride 98 (98-107) mEq/L Carbon Dioxide 29 (21-32) mEq/L Anion Gap 11.7 (5-15) BUN 11 (7-18) mg/dL Creatinine 0.7 (0.55-1.02) mg/dL Est Cr Clr Drug Dosing 74.13 mL/min Estimated GFR (MDRD) > 60 (>60) mL/min BUN/Creatinine Ratio 15.7 (14-18) Glucose 88 (74-106) mg/dL Calcium 8.9 (8.5-10.1) mg/dL Total Bilirubin 0.5 (0.2-1.0) mg/dL AST 13 L (15-37) U/L ALT 13 L (14-59) U/L Alkaline Phosphatase 189 H (46-116) U/L Troponin I < 0.017 (0.00-0.056) ng/mL Total Protein 7.0 (6.4-8.2) g/dl Albumin 2.7 L (3.4-5.0) g/dl Globulin 4.3 gm/dL Albumin/Globulin Ratio 0.6 L (1-2) Lipase 21 L (73-393) U/L Meds: Medications Discontinued Medications Generic Name Dose Route Start Last Admin Trade Name Freq PRN Reason Stop Dose Admin Al Hydroxide/Mg Hydroxide 30 0 ml 04/22/20 10:09 04/22/20 10:22 ml/ Lidocaine HCl 15 ml PO 04/22/20 10:10 45 ml ONETIME ONE Administration Diphenhydramine HCl 50 mg 04/22/20 11:55 04/22/20 12:12 Benadryl IVPUSH 04/22/20 11:56 50 mg ONETIME ONE Administration Famotidine 40 mg 04/22/20 11:55 04/22/20 12:12 Pepcid IVPUSH 04/22/20 11:56 40 mg ONETIME ONE Administration Lactated Ringer's 1,000 mls @ 999 mls/hr 04/22/20 11:55 04/22/20 12:12 Ringers, Lactated IV 04/22/20 12:55 999 mls/hr .BOLUS ONE Administration - Re-Assessments/Exams Free Text/Narrative Re-Assessment/Exam: 04/22/20 12:41 Patient was given a GI cocktail with no improvement we will give her some Benadryl and Pepcid check labs including a troponin and an EKG then reassess after this. 04/22/20 15:58 The situation was discussed with he would like us to stop the doxycycline and start on Levaquin 750 mg daily for 7 days. Did review all the labs with him. Departure - Departure Time of Disposition: 15:22 Disposition: Home, Self-Care 01 Clinical Impression: Pneumonia, GERD (gastroesophageal reflux disease), Medication reaction - Discharge Information Referrals: Ping Tamez MD [Primary Care Provider] - Forms: ED Department Discharge Additional Instructions: Return to the emergency room with any questions problems or worsening symptoms. Stop the doxycycline. You have been started on Levaquin take 1 daily for the next 7 days. Do not take the trazodone while taking this medication. Follow-up with on of this week. Sepsis Event Note (ED) - Evaluation Sepsis Screening Result: No Definite Risk - Focused Exam Vital Signs: Vital Signs Temp Pulse Resp BP Pulse Ox 04/22/20 14:58 38.0 C 04/22/20 09:16 36.4 C 77 20 104/54 L 99 - My Orders Last 24 Hours: My Active Orders 04/22/20 12:09 EKG Documentation Completion [RC] STAT - Assessment/Plan Last 24 Hours: My Active Orders 04/22/20 12:09 EKG Documentation Completion [RC] STAT
[2020-04-22] MEDS ORDERED: Alum Hydrox/Mag Hydrox/Simeth 30 ML, Lidocaine 2% 15 ML PO ONE ×2 (10:09)
[2020-04-22] MEDS ORDERED: diphenhydrAMINE 50 MG/ML SDV IVPUSH ONE (11:55)
[2020-04-22] MEDS ORDERED: Lactated Ringers 1,000 ML IV ONE (11:55)
[2020-04-22] MEDS ORDERED: Famotidine 20 MG/2 ML SDV IVPUSH ONE (11:55)
== END 2020-04-22 16:25 | disposition home or self-care (01) ==
LOC: JD.ED 08:54
DX: J18.9 Pneumonia, unspecified organism (principal); K21.9 Gastro-esophageal reflux disease without esophagitis; T50.905A Adverse effect of unspecified drugs, medicaments and biological substances, initial encounter; J44.9 Chronic obstructive pulmonary disease, unspecified; M19.90 Unspecified osteoarthritis, unspecified site; F41.9 Anxiety disorder, unspecified; F32.9 Major depressive disorder, single episode, unspecified; Z87.891 Personal history of nicotine dependence; Z88.8 Allergy status to other drugs, medicaments and biological substances; Z88.5 Allergy status to narcotic agent; Z79.899 Other long term (current) drug therapy
CPT/HCPCS: 36415; 80053; 83690; 84484; 85025; 93005; 96361; 96374; 96375; 99284; A9270; J1200; J1642; J3490; J7120; 93010; 99283

== ENCOUNTER 2020-05-02 11:02 | Emergency (ER) | payer MEDICAID ==
[2020-05-02] MEDS ORDERED: diphenhydrAMINE 50 MG/ML SDV IVPUSH ONE (11:42)
[2020-05-02] MEDS ORDERED: Sodium Chloride 0.9% 1,000 ML IV ONE (11:42)
[2020-05-02] MEDS ORDERED: Ketorolac 30 MG/ML SDV IVPUSH ONE (11:42)
[2020-05-02] MEDS ORDERED: Metoclopramide 10 MG/2 ML SDV IVPUSH ONE (11:42)
--- NOTE | 2020-05-02 11:49 | EDM.PDOC ---
ED HPI GENERAL MEDICAL PROBLEM - General Chief Complaint: Headache Stated Complaint: HEADACHE/NECK PAIN Time Seen by Provider: 05/02/20 11:17 Source of Information: Reports: Patient, RN Notes Reviewed History Limitations: Reports: No Limitations - History of Present Illness INITIAL COMMENTS - FREE TEXT/NARRATIVE: Patient is a 55-year-old female who presents to the ED for the evaluation of her frontal headache. Patient has a history of bone mets, from primary lung cancer. She is on radiation and treatment for this. Her next visits will be on the and 09 May. Patient notes for the last 2 days she has had a frontal headache that radiates down the left side of her neck. She recently had radiation to her scalp for the bone mets. She took 2 extra strength Tylenol yesterday, and 1 Percocet for her headache, and states this helped pretty good, but the headache returned today so she took another extra strength Tylenol, but did not want to take another Percocet so she come to the ER for management. She states that she is seeing spots in her vision, and she does commonly get headaches, this 1 seems to be a little bit more worse than her normal. Blood pressure is low again today at 90/71, which is common for her. Patient's primary care provider Ping Tamez. She is not complaining of any fevers chills, cough/shortness of breath, nausea/vomiting/diarrhea. Frontal Headache Pain Score (Numeric/FACES): 9 - Related Data Allergies Allergy/AdvReac Type Severity Reaction Status Date / Time paclitaxel [From Taxol] Allergy Severe Seizure Verified 04/22/20 09:20 ketorolac [From Toradol] AdvReac Intermediate Vomiting Verified 04/22/20 09:20 Home Meds: Home Meds traZODone HCl [Trazodone HCl] 150 mg PO BEDTIME 05/19/18 [History] Sertraline [Zoloft] 50 mg PO DAILY 08/14/19 [History] lamoTRIgine 150 mg PO BID 10/26/19 [History] Albuterol Sulfate [Albuterol Sulfate Hfa] 2 puff INH Q4H PRN 12/18/19 [History] Acetaminophen/HYDROcodone [[place] 325-5 MG] 5 - 325 mg PO Q6H PRN 02/22/20 [History] Acetaminophen/HYDROcodone [[place] 325-5 MG] 1 tab PO Q6H PRN #30 tablet 02/27/20 [Rx] Celecoxib 100 mg PO BID 02/27/20 [History] Acetaminophen [Tylenol Arthritis] 2 tab PO ASDIRECTED 04/14/20 [History] Acetaminophen/oxyCODONE [Percocet 325-5 MG] 1 each PO Q6H PRN #20 tab 04/14/20 [Rx] Past Medical History HEENT History: Reports: Impaired Vision, Other (See Below) Other HEENT History: wears glasses Respiratory History: Reports: COPD, Other (See Below) Other Respiratory History: lung cancer, emphysema Gastrointestinal History: Reports: Hepatitis Other Gastrointestinal History: "cured for hepatitis C", Liver cancer 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 Neurological History: Reports: Migraines, Seizure Psychiatric History: Reports: Anxiety, Depression, Suicide Attempt Immunologic History: Reports: Other (See Below) Other Immunologic History: Hep C- cured? 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;scalp cancer Dermatologic History: Reports: Other (See Below) Other Dermatologic History: dry skin - Infectious Disease History Infectious Disease History: Reports: Chicken Pox, Hepatitis C Other Infectious Disease History: had treatment and now is clear since November - Past Surgical History HEENT Surgical History: Reports: Oral Surgery Other HEENT Surgeries/Procedures: upper dentures in pt mouth GI Surgical History: Reports: Appendectomy, Cholecystectomy Female Surgical History: Reports: Hysterectomy Social & Family History - Family History Family Medical History: Noncontributory Cardiac: Reports: CAD Oncologic: Reports: Breast - Tobacco Use Smoking Status *Q: Former Smoker Used Tobacco, but Quit: Yes Month/Year Tobacco Last Used: sep 2019 - Caffeine Use Caffeine Use: Reports: Coffee, Soda Other Caffeine Use: 2 cups a day sometimes 3 - Recreational Drug Use Recreational Drug Use: No Other Recreational Drug Type: clean of everything for 3 years - Living Situation & Occupation Living situation: Reports: , with Family (Daughter, her 2 kids, and her boyfriend) Occupation: Disabled ED ROS GENERAL - Review of Systems Review Of Systems: Comprehensive ROS is negative, except as noted in HPI. - Physical Exam Exam: See Below Exam Limited By: No Limitations General Appearance: Alert, No Apparent Distress, Cachetic (generalized) Eye Exam: Bilateral Eye: EOMI, Normal Inspection, PERRL Throat/Mouth: Normal Inspection, Normal Lips, Normal Teeth, Normal Gums, Normal Oropharynx, Normal Voice, No Airway Compromise Head Exam: Atraumatic, Normocephalic Neck: Normal Inspection, Supple, Non-Tender, Full Range of Motion Respiratory/Chest: No Respiratory Distress, Lungs Clear, Normal Breath Sounds, No Accessory Muscle Use, Chest Non-Tender Cardiovascular: Normal Peripheral Pulses, Regular Rate, Rhythm, No Murmur Neuro Exam (Abbreviated): Alert, Oriented, Normal Cognition, No Motor/Sensory Deficits Extremities: Normal Inspection, Normal Capillary Refill Psychiatric: Normal Affect, Normal Mood Skin Exam: Warm, Dry, Intact, Normal Color, No Rash Course - Vital Signs Last Recorded V/S: Last Vital Signs Temp 96.9 F 05/02/20 11:25 Pulse 70 05/02/20 11:25 Resp 20 05/02/20 11:25 BP 90/71 05/02/20 11:25 Pulse Ox 97 05/02/20 11:25 - Orders/Labs/Meds Orders: Active Orders 24 hr Category Date Time Status Implanted Port Access [RC] ONETIME Care 05/02/20 11:43 Ordered Heparin Sodium [Heparin Lock Flush 100 Units/ML] Med 05/02/20 13:14 Once 500 units FLUSH ASDIRECTED ONE Medication Orders Heparin Sodium (Porcine) (Heparin Lock Flush 100 Units/Ml) 500 units FLUSH ASDIRECTED ONE Stop: 05/02/20 13:15 Meds: Medications Generic Name Dose Route Start Last Admin Trade Name Freq PRN Reason Stop Dose Admin Heparin Sodium (Porcine) 500 units 05/02/20 13:14 Heparin Lock Flush 100 Units/Ml FLUSH 05/02/20 13:15 ASDIRECTED ONE Discontinued Medications Generic Name Dose Route Start Last Admin Trade Name Freq PRN Reason Stop Dose Admin Diphenhydramine HCl 25 mg 05/02/20 11:42 05/02/20 12:10 Benadryl IVPUSH 05/02/20 11:43 25 mg ONETIME ONE Administration Sodium Chloride 1,000 mls @ 999 mls/hr 05/02/20 11:42 05/02/20 12:08 Normal Saline IV 05/02/20 12:42 999 mls/hr ASDIRECTED ONE Administration Ketorolac Tromethamine 30 mg 05/02/20 11:42 05/02/20 12:10 Toradol IVPUSH 05/02/20 11:43 30 mg ONETIME ONE Administration Metoclopramide HCl 10 mg 05/02/20 11:42 05/02/20 12:09 Reglan IVPUSH 05/02/20 11:43 10 mg ONETIME ONE Administration - Re-Assessments/Exams Free Text/Narrative Re-Assessment/Exam: 05/02/20 11:49 Patient presents to the ED for the evaluation of her headache. We will give her Toradol, Benadryl and Reglan for management along with some IV fluids to see if this helps. Patient states that she has had allergy to Toradol in the past that has resulted in vomiting, she states she has not had it in a while so she would be willing to try it. She is also getting something for nausea along with it. 05/02/20 13:14 Patient was reassessed at bedside, states that her headache is much better. Patient will be discharged home in a little while with general recommendations. Departure - Departure Time of Disposition: 13:08 Disposition: Home, Self-Care 01 Condition: Good Clinical Impression: Migraine Qualifiers: Migraine type: with aura Status migrainosus presence: without status migrainosus Intractability: not intractable Qualified Code(s): G43.109 - Migraine with aura, not intractable, without status migrainosus - Discharge Information *PRESCRIPTION DRUG MONITORING PROGRAM REVIEWED*: No *COPY OF PRESCRIPTION DRUG MONITORING REPORT IN PATIENT RUFINO: No Instructions: Recurrent Migraine Headache, [id number] Referrals: Ping Tamez MD [Primary Care Provider] - Forms: ED Department Discharge Additional Instructions: You were evaluated in the ED for your headache. You were given a combination of medications and IV fluid for management. This did seem to provide you pretty good relief of your symptoms. Recommend that you go home and rest in a quiet, darkened room. Try also to keep well hydrated. Please return to the ED if your symptoms should change or worsen. Sepsis Event Note (ED) - Evaluation Sepsis Screening Result: No Definite Risk - Focused Exam Vital Signs: Vital Signs Temp Pulse Resp BP Pulse Ox 05/02/20 11:25 96.9 F 70 20 90/71 97 - My Orders Last 24 Hours: My Active Orders 05/02/20 11:43 Implanted Port Access [RC] ONETIME 05/02/20 13:14 Heparin Sodium [Heparin Lock Flush 100 Units/ML] 500 units FLUSH ASDIRECTED ONE - Assessment/Plan Last 24 Hours: My Active Orders 05/02/20 11:43 Implanted Port Access [RC] ONETIME 05/02/20 13:14 Heparin Sodium [Heparin Lock Flush 100 Units/ML] 500 units FLUSH ASDIRECTED ONE
== END 2020-05-02 13:57 | disposition home or self-care (01) ==
LOC: JD.ED 11:02
DX: G43.109 Migraine with aura, not intractable, without status migrainosus (principal); M41.9 Scoliosis, unspecified; F32.9 Major depressive disorder, single episode, unspecified; J44.9 Chronic obstructive pulmonary disease, unspecified; R56.9 Unspecified convulsions; F41.9 Anxiety disorder, unspecified; Z88.6 Allergy status to analgesic agent; Z88.8 Allergy status to other drugs, medicaments and biological substances; Z87.891 Personal history of nicotine dependence; Z79.899 Other long term (current) drug therapy
CPT/HCPCS: 96361; 96374; 96375; 99283; J1200; J1642; J1885; J2765; J7030

== ENCOUNTER 2020-05-09 16:20 | Emergency (ER) | payer MEDICAID ==
[2020-05-09] MEDS ORDERED: Metoclopramide 10 MG/2 ML SDV IVPUSH ONE (17:12)
[2020-05-09] MEDS ORDERED: HYDROmorphone 0.5 MG/0.5 ML Syringe IVPUSH ONE ×2 (17:12→19:08)
[2020-05-09] MEDS ORDERED: Sodium Chloride 0.9% 1,000 ML IV ONE (17:12)
[2020-05-09] MEDS ORDERED: diphenhydrAMINE 50 MG/ML SDV IVPUSH ONE (17:12)
--- NOTE | 2020-05-09 17:18 | EDM.PDOC ---
ED HPI GENERAL MEDICAL PROBLEM - General Chief Complaint: General Stated Complaint: WEAK, TIRED,HEADACHE Time Seen by Provider: 05/09/20 17:02 Source of Information: Reports: Patient, RN Notes Reviewed History Limitations: Reports: No Limitations - History of Present Illness INITIAL COMMENTS - FREE TEXT/NARRATIVE: Patient is a 55-year-old female who presents to the ED for the evaluation of severe fatigue, weakness and a headache. Patient is well-known to this ER, and has end-stage lung cancer that has mets to her bones, and into her skull. She notes that she went to [place] this morning for a routine checkup with her radiation doc, everything went well. She did note that she felt lethargic this morning, she is not really been eating much all day, due to just not feeling well. She is currently undergoing chemo and finished radiation in March for her cancers. She states that today she is felt very sleepy, she opted not to go to the emergency room in [place], and to come back here for evaluation, as she states that we know her here. She did state that her white blood cell count was high for her at 32-36,000. Her white blood cell count is normally in the low 20s. Patient states she has not had any fevers or chills, she is not really ate anything she is not nauseous, not having any vomiting, not having any diarrhea. She is not having any increased cough, or chest pain. She is not complaining of any urinary issues. She did take Tylenol arthritis for her headache and generalized feelings of being well today, but did not take her Percocet. She did note that her blood pressure was a little bit low at her appointment. But her blood pressure is normally on the low side. Blood pressure at today's visit is 94/40. Headache Pain Score (Numeric/FACES): 8 - Related Data Allergies Allergy/AdvReac Type Severity Reaction Status Date / Time paclitaxel [From Taxol] Allergy Severe Seizure Verified 05/09/20 16:40 ketorolac [From Toradol] AdvReac Intermediate Vomiting Verified 05/09/20 16:40 Home Meds: Home Meds traZODone HCl [Trazodone HCl] 150 mg PO BEDTIME 05/19/18 [History] Sertraline [Zoloft] 50 mg PO DAILY 08/14/19 [History] lamoTRIgine 150 mg PO BID 10/26/19 [History] Albuterol Sulfate [Albuterol Sulfate Hfa] 2 puff INH Q4H PRN 12/18/19 [History] Celecoxib 100 mg PO BID 02/27/20 [History] Acetaminophen/oxyCODONE [Percocet 325-5 MG] 1 each PO Q6H PRN #20 tab 04/14/20 [Rx] Aspirin [Aspirin EC] 81 mg PO DAILY 05/09/20 [History] Sennosides [Senna Lax] 8.6 mg PO DAILY 05/09/20 [History] Past Medical History HEENT History: Reports: Impaired Vision, Other (See Below) Other HEENT History: wears glasses Cardiovascular History: Reports: None Respiratory History: Reports: COPD, Other (See Below) Other Respiratory History: lung cancer, emphysema Gastrointestinal History: Reports: Hepatitis Other Gastrointestinal History: "cured for hepatitis C", Liver cancer Genitourinary History: Reports: None 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 Neurological History: Reports: Migraines, Seizure Psychiatric History: Reports: Anxiety, Depression, Suicide Attempt Endocrine/Metabolic History: Reports: None Hematologic History: Reports: None Immunologic History: Reports: Other (See Below) Other Immunologic History: Hep C- cured? 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;scalp cancer Dermatologic History: Reports: Other (See Below) Other Dermatologic History: dry skin - Infectious Disease History Infectious Disease History: Reports: Chicken Pox, Hepatitis C Other Infectious Disease History: had treatment and now is clear since November - Past Surgical History HEENT Surgical History: Reports: Oral Surgery Other HEENT Surgeries/Procedures: upper dentures in pt mouth GI Surgical History: Reports: Appendectomy, Cholecystectomy Female Surgical History: Reports: Hysterectomy Social & Family History - Family History Family Medical History: Noncontributory Cardiac: Reports: CAD Oncologic: Reports: Breast - Tobacco Use Smoking Status *Q: Former Smoker Used Tobacco, but Quit: Yes Month/Year Tobacco Last Used: 08/2019 - Caffeine Use Caffeine Use: Reports: Coffee, Soda Other Caffeine Use: 2 cups a day sometimes 3 - Recreational Drug Use Recreational Drug Use: Yes 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 ED EXAM, GENERAL - Physical Exam Exam: See Below Exam Limited By: No Limitations General Appearance: Alert, No Apparent Distress, Cachetic Eye Exam: Bilateral Eye: EOMI, Normal Inspection, PERRL Throat/Mouth: Normal Inspection, Normal Lips, Normal Teeth, Normal Gums, Normal Oropharynx, Normal Voice, No Airway Compromise Head: Atraumatic, Normocephalic Neck: Normal Inspection Respiratory/Chest: No Respiratory Distress, Lungs Clear, Normal Breath Sounds, No Accessory Muscle Use, Chest Non-Tender Cardiovascular: Normal Peripheral Pulses, Regular Rate, Rhythm, No Murmur Peripheral Pulses: 2+: Radial (L), Radial (R) Extremities: Normal Inspection, Normal Capillary Refill Neurological: Alert, Oriented, Normal Cognition, No Motor/Sensory Deficits Psychiatric: Normal Affect, Normal Mood Skin Exam: Warm, Dry, Intact, Normal Color, No Rash Course - Vital Signs Last Recorded V/S: Last Vital Signs Temp 99.4 F 05/09/20 19:00 Pulse 83 05/09/20 19:00 Resp 16 05/09/20 19:00 BP 95/69 05/09/20 19:00 Pulse Ox 95 05/09/20 19:00 - Orders/Labs/Meds Orders: Active Orders 24 hr Category Date Time Status Implanted Port Access [RC] ONETIME Care 05/09/20 17:12 Active Labs: Laboratory Tests 05/09/20 05/09/20 Range/Units 17:30 17:30 WBC 25.34 H (3.98-10.04) K/mm3 RBC 3.57 L (3.98-5.22) M/mm3 Hgb 9.0 L (11.2-15.7) gm/dl Hct 29.9 L (34.1-44.9) % MCV 83.8 (79.4-94.8) fl MCH 25.2 L (25.6-32.2) pg MCHC 30.1 L (32.2-35.5) g/dl RDW Std Deviation 47.0 H (36.4-46.3) fL Plt Count 417 H (182-369) K/mm3 MPV 8.7 L (9.4-12.3) fl Neutrophils % (Manual) 93 H (40-60) % Band Neutrophils % 0 (0-10) % Lymphocytes % (Manual) 5 L (20-40) % Atypical Lymphs % 0 % Monocytes % (Manual) 2 (2-10) % Eosinophils % (Manual) 0 L (0.7-5.8) % Basophils % (Manual) 0 L (0.1-1.2) Platelet Estimate Adequate Hypochromasia 1+ slight RBC Morph Comment Not Reportable Sodium 135 L (136-145) mEq/L Potassium 4.2 (3.5-5.1) mEq/L Chloride 98 (98-107) mEq/L Carbon Dioxide 26 (21-32) mEq/L Anion Gap 15.2 H (5-15) BUN 22 H (7-18) mg/dL Creatinine 0.8 (0.55-1.02) mg/dL Est Cr Clr Drug Dosing 63.15 mL/min Estimated GFR (MDRD) > 60 (>60) mL/min BUN/Creatinine Ratio 27.5 H (14-18) Glucose 105 (74-106) mg/dL Calcium 8.5 (8.5-10.1) mg/dL Magnesium 1.9 (1.8-2.4) mg/dl Total Bilirubin 0.4 (0.2-1.0) mg/dL AST 17 (15-37) U/L ALT 12 L (14-59) U/L Alkaline Phosphatase 185 H (46-116) U/L Total Protein 6.6 (6.4-8.2) g/dl Albumin 2.5 L (3.4-5.0) g/dl Globulin 4.1 gm/dL Albumin/Globulin Ratio 0.6 L (1-2) Meds: Medications Discontinued Medications Generic Name Dose Route Start Last Admin Trade Name Freq PRN Reason Stop Dose Admin Diphenhydramine HCl 25 mg 05/09/20 17:12 05/09/20 17:53 Benadryl IVPUSH 05/09/20 17:13 25 mg ONETIME ONE Administration Hydromorphone HCl 0.5 mg 05/09/20 17:12 05/09/20 17:57 Dilaudid IVPUSH 05/09/20 17:13 0.5 mg ONETIME ONE Administration Sodium Chloride 1,000 mls @ 999 mls/hr 05/09/20 17:12 05/09/20 18:00 Normal Saline IV 05/09/20 18:12 999 mls/hr ONETIME ONE Administration Metoclopramide HCl 10 mg 05/09/20 17:12 05/09/20 17:55 Reglan IVPUSH 05/09/20 17:13 10 mg ONETIME ONE Administration - Re-Assessments/Exams Free Text/Narrative Re-Assessment/Exam: 05/09/20 17:17 Patient presents to the ED for evaluation of her lethargy, fatigue, and headache. IV fluids to be given along with 0.5 mg Dilaudid, 10 mg Reglan and 25 mg IV Benadryl basic labs will be obtained. 05/09/20 19:06 Labs do demonstrate an elevated white blood cell count of 25,000. Patient has no focal source of infection at this time, is not likely that she has any sort of infection. She normally has an elevated white blood cell count. Patient states that her pain is better, but still having some neck pain, give another half milligram Dilaudid, she she is not opioid sherry. We will get her going home after this. Departure - Departure Time of Disposition: 19:09 Disposition: Home, Self-Care 01 Condition: Good Clinical Impression: Lethargy Headache Qualifiers: Headache type: unspecified Headache chronicity pattern: acute headache Intractability: not intractable Qualified Code(s): R51 - Headache - Discharge Information *PRESCRIPTION DRUG MONITORING PROGRAM REVIEWED*: No *COPY OF PRESCRIPTION DRUG MONITORING REPORT IN PATIENT RUFINO: No Instructions: General Headache Without Cause, [id number] Referrals: Ping Tamez MD [Primary Care Provider] - Forms: ED Department Discharge Additional Instructions: You were evaluated in the ER today for your ongoing lethargy, and headache. You were given some IV medications in the ER, that did seem to help relieve most of your symptoms. Please go home, rest in a quiet dark room, take your Percocet as directed for pain management. It is likely that due to your chemo, it is taking a lot out of you physically and emotionally. Please try to do some activities that are not health-related, to keep your mind off of your illness, as this might help you a little bit. Please follow-up with your previous providers as previously directed at any other scheduled appointments. As always please return to the ER at any time if your symptoms change or worsen. Sepsis Event Note (ED) - Evaluation Sepsis Screening Result: No Definite Risk - Focused Exam Vital Signs: Vital Signs Temp Pulse Resp BP Pulse Ox 05/09/20 19:00 99.4 F 83 16 95/69 95 05/09/20 16:36 98.2 F 72 16 94/40 L 95 - My Orders Last 24 Hours: My Active Orders 05/09/20 17:12 Implanted Port Access [RC] ONETIME - Assessment/Plan Last 24 Hours: My Active Orders 05/09/20 17:12 Implanted Port Access [RC] ONETIME
== END 2020-05-09 20:06 | disposition home or self-care (01) ==
LOC: JD.ED 16:20
DX: R53.83 Other fatigue (principal); R51 Headache; J44.9 Chronic obstructive pulmonary disease, unspecified; M19.90 Unspecified osteoarthritis, unspecified site; M41.9 Scoliosis, unspecified; R56.9 Unspecified convulsions; F41.9 Anxiety disorder, unspecified; F32.9 Major depressive disorder, single episode, unspecified; Z88.6 Allergy status to analgesic agent; Z88.8 Allergy status to other drugs, medicaments and biological substances; Z87.891 Personal history of nicotine dependence
CPT/HCPCS: 36415; 80053; 83735; 85007; 85027; 96361; 96374; 96375; 96376; 99283; J1170; J1200; J1642; J2765; J7030; 99284

== ENCOUNTER 2020-05-12 09:27 | Emergency (ER) | payer MEDICAID ==
--- NOTE | 2020-05-12 09:49 | EDM.PDOC ---
ED HPI GENERAL MEDICAL PROBLEM - General Chief Complaint: ENT Problem Stated Complaint: THROAT PAIN/SWELLING Time Seen by Provider: 05/12/20 09:49 Source of Information: Reports: Patient History Limitations: Reports: No Limitations - History of Present Illness INITIAL COMMENTS - FREE TEXT/NARRATIVE: 55-year-old female presents to the ED with sore throat and difficulty swallowing . Patient reports that she has not been taking adequate nutrition or fluids the last several days. 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 She finished radiation treatment series and is continuing chemotherapy. I believe radiation treatments were finished up the end of March. She had her last chemo treatments on the and of this month. She gets a lot of headaches on a regular basis. She states she has been a in bed a good portion of the last 3 days since chemo. Could barely get down her pills this morning due to sore throat. She gets intermittent sweats and nose but no she has an associated fever with them. Blood cell count usually lives in the 20,000 range. Often found to be hyponatremic. She has a Port-A-Cath right upper anterior chest. Onset: Gradual Onset Date: 05/11/20 (Mild difficulty swallowing her pills yesterday morning had a very tough time swallowing her pills with this morning due to dry sore throat.) Duration: Hour(s):, Constant Location: Reports: Generalized Quality: Reports: Other (While swallowing) Severity: Moderate (.) Improves with: Reports: None Worsens with: Reports: None Context: Reports: Other (Patient is receiving chemotherapy at present for metastatic lung cancer to the bones with primary in the lungs as small cell carcinoma. This resulted in continued slow weight loss loss of appetite and poor oral intake. She admits she has been lying in bed for the most part over the last 3 days and has not been taking adequate fluids or nutrition. She is not hungry.). Denies: Activity, Exercise, Lifting, Sick Contact, Trauma Associated Symptoms: Reports: Cough (On a cough very rarely productive. No hemoptysis.), cough w sputum, Loss of Appetite (Patiently.), Malaise, Shortness of Breath, Weakness. Denies: Nausea/Vomiting (Exertion.) Treatments MARKETING DEVELOPMENT MANAGER: Reports: Other (see below) (Only prescribed medications.) Throat Pain Score (Numeric/FACES): 8 - Related Data Allergies Allergy/AdvReac Type Severity Reaction Status Date / Time paclitaxel [From Taxol] Allergy Severe Seizure Verified 05/12/20 09:39 ketorolac [From Toradol] AdvReac Intermediate Vomiting Verified 05/12/20 09:39 Home Meds: Home Meds traZODone HCl [Trazodone HCl] 150 mg PO BEDTIME 05/19/18 [History] Sertraline [Zoloft] 50 mg PO DAILY 08/14/19 [History] lamoTRIgine 150 mg PO BID 10/26/19 [History] Albuterol Sulfate [Albuterol Sulfate Hfa] 2 puff INH Q4H PRN 12/18/19 [History] Celecoxib 100 mg PO BID 02/27/20 [History] Acetaminophen/oxyCODONE [Percocet 325-5 MG] 1 each PO Q6H PRN #20 tab 04/14/20 [Rx] Aspirin [Aspirin EC] 81 mg PO DAILY 05/09/20 [History] Sennosides [Senna Lax] 8.6 mg PO DAILY 05/09/20 [History] Ondansetron [Zofran] 4 mg BUCCAL Q6H PRN #15 tab 05/12/20 [Rx] oxyCODONE HCl/Acetaminophen [Percocet 5-325 mg Tablet] 1 - 2 each PO Q4H PRN #20 tablet 05/12/20 [Rx] Past Medical History HEENT History: Reports: Impaired Vision, Other (See Below) Other HEENT History: wears glasses Cardiovascular History: Reports: None Respiratory History: Reports: COPD, Other (See Below) Other Respiratory History: lung cancer, emphysema Gastrointestinal History: Reports: Hepatitis Other Gastrointestinal History: "cured for hepatitis C", Liver cancer Genitourinary History: Reports: None ACCOUNTS PAYABLE ADMINISTRATOR History: Reports: Other ACCOUNTS PAYABLE ADMINISTRATOR History: 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 Neurological History: Reports: Migraines, Seizure Psychiatric History: Reports: Anxiety, Depression, Suicide Attempt Endocrine/Metabolic History: Reports: None Hematologic History: Reports: None Immunologic History: Reports: Other (See Below) Other Immunologic History: Hep C- cured? 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;scalp cancer Dermatologic History: Reports: Other (See Below) Other Dermatologic History: dry skin - Infectious Disease History Infectious Disease History: Reports: Chicken Pox, Hepatitis C Other Infectious Disease History: had treatment and now is clear since November - Past Surgical History HEENT Surgical History: Reports: Oral Surgery Other HEENT Surgeries/Procedures: upper dentures in pt mouth GI Surgical History: Reports: Appendectomy, Cholecystectomy Female Surgical History: Reports: Hysterectomy Social & Family History - Family History Family Medical History: Noncontributory Cardiac: Reports: CAD Oncologic: Reports: Breast - Tobacco Use Smoking Status *Q: Former Smoker Tobacco Use Within Last Twelve Months: Cigarettes Used Tobacco, but Quit: Yes Month/Year Tobacco Last Used: 08/2019 - Caffeine Use Caffeine Use: Reports: Coffee Other Caffeine Use: 2 cups a day sometimes 3 - Recreational Drug Use Recreational Drug Use: No - Living Situation & Occupation Living situation: Reports: , with Family (Daughter, her 2 kids, and her boyfriend) Occupation: Disabled ED ROS ENT - Review of Systems Review Of Systems: See Below Constitutional: Reports: Chills, Malaise, Weakness, Fatigue, Decreased Appetite, Weight Loss. Denies: Fever HEENT: Reports: Glasses, Throat Pain (Throat pain difficulty swallowing.), Vertigo (Occasional problems of vertigo. Especially since radiation to the right side of her brain and skull.) Respiratory: Reports: Shortness of Breath, Wheezing, Cough. Denies: Pleuritic Chest Pain (Days no wheezing), Sputum, Hemoptysis (Neck cough rarely productive of any sputum.) Cardiovascular: Reports: Blood Pressure Problem (Always runs low particularly), Dyspnea on Exertion, Lightheadedness, Palpitations. Denies: Chest Pain, Claudication ( 90-100 systolically.), Edema (Occasionally with standing.), Orthopnea Endocrine: Reports: Fatigue GI/Abdominal: Reports: Constipation, Diarrhea (Sometimes diarrhea if she overdoes it on the stool softeners. She did have diarrhea this morning), Decreased Appetite (Stool softeners.), Difficulty Swallowing (Again noted this morning.) : Reports: No Symptoms Musculoskeletal: Reports: Back Pain Skin: Reports: No Symptoms Neurological: Reports: Dizziness (Patient will dizziness which I interpret is a bit of vertigo as well.) Psychiatric: Reports: Depression Hematologic/Lymphatic: Reports: Anemia Immunologic: Reports: No Symptoms ED EXAM, ENT - Physical Exam Exam: See Below Exam Limited By: No Limitations General Appearance: Alert, WD/WN, Mild Distress, Thin ( She appears very thin. Temperature right now is 36.3 although she feels a little bit warmer than this. Heart rate was 81 and sinus respiratory is 19 with O2 sats of 99% room air BP was 110/54 which is a little high for her. She equates this to being in pain.), Other (And has lost a good deal of weight since I last seen her.) Eye Exam: Bilateral Eye: Normal Inspection Ears: Normal TMs Mouth/Throat: Other (Times tongue is extremely dry and coated. The entire mouth is very dry. No erythema to suggest infection or exudate.) Head: Other (Care has been cut very close to the scalp. She has an area of hair that is growing back on the entire right temporal parietal lobe where she had recent radiation.) Neck: Normal Inspection, Supple, Non-Tender, Full Range of Motion. No: Carotid Bruit, Lymphadenopathy (L), Lymphadenopathy (R) Respiratory/Chest: Lungs Clear (Mild tachypnea.), Normal Breath Sounds, Respiratory Distress, Decreased Breath Sounds (Mildly decreased breath sounds to both posterior lung bases.), Other (Has a Port-A-Cath right upper anterior chest.) Cardiovascular: Normal Peripheral Pulses (Occasional cough during exam.), Regular Rate, Rhythm, No Edema, No Gallop, No Murmur, No Rub GI/Abdominal: Normal Bowel Sounds, Soft, Non-Tender, No Organomegaly, No Abnormal Bruit, No Mass, Pelvis Stable Back: Normal Inspection, Full Range of Motion, Other (All ribs and spinous processes are easily visible.). No: CVA Tenderness (L), CVA Tenderness (R) Extremities: Normal Inspection, Normal Range of Motion, Non-Tender, No Pedal Edema Neurological: Alert, Oriented, CN II-XII Intact, Normal Cognition Psychiatric: Flat Affect Skin: Warm, Dry, Intact, Normal Color, No Rash Course - Vital Signs Last Recorded V/S: Last Vital Signs Temp 36.3 C 05/12/20 09:36 Pulse 81 05/12/20 09:36 Resp 19 05/12/20 09:36 BP 110/54 L 05/12/20 09:36 Pulse Ox 99 05/12/20 09:36 - Orders/Labs/Meds Orders: Active Orders 24 hr Category Date Time Status Implanted Port Access [RC] DAILY Care 05/12/20 10:30 Active Implanted Port De-Access [RC] ONETIME Care 05/12/20 18:31 Active Dextrose 5%-0.9% NaCl [Dextrose 5%-Normal Saline] 1,000 Med 05/12/20 10:00 Active ml IV ASDIRECTED Medication Orders Dextrose/Sodium Chloride (Dextrose 5%-Normal Saline) 1,000 mls @ 999 mls/hr IV ASDIRECTED IVONNE Last Admin: 05/12/20 10:53 Dose: 999 mls/hr Documented by: BO Labs: Laboratory Tests 05/12/20 05/12/20 05/12/20 Range/Units 10:42 10:42 10:42 WBC 14.37 H (3.98-10.04) K/mm3 RBC 3.21 L (3.98-5.22) M/mm3 Hgb 8.0 L (11.2-15.7) gm/dl Hct 26.9 L (34.1-44.9) % MCV 83.8 (79.4-94.8) fl MCH 24.9 L (25.6-32.2) pg MCHC 29.7 L (32.2-35.5) g/dl RDW Std Deviation 46.5 H (36.4-46.3) fL Plt Count 332 D (182-369) K/mm3 MPV 8.9 L (9.4-12.3) fl Neutrophils % (Manual) 87 H (40-60) % Band Neutrophils % 0 (0-10) % Lymphocytes % (Manual) 8 L (20-40) % Atypical Lymphs % 0 % Monocytes % (Manual) 3 (2-10) % Eosinophils % (Manual) 2 (0.7-5.8) % Basophils % (Manual) 0 L (0.1-1.2) Platelet Estimate Adequate Hypochromasia 1+ slight Target Cells 1+ slight Tear Drop Cells 1+ slight RBC Morph Comment Not Reportable Sodium 135 L (136-145) mEq/L Potassium 3.5 (3.5-5.1) mEq/L Chloride 99 (98-107) mEq/L Carbon Dioxide 27 (21-32) mEq/L Anion Gap 12.5 (5-15) BUN 15 (7-18) mg/dL Creatinine 0.8 (0.55-1.02) mg/dL Est Cr Clr Drug Dosing 63.15 mL/min Estimated GFR (MDRD) > 60 (>60) mL/min BUN/Creatinine Ratio 18.8 H (14-18) Glucose 84 (74-106) mg/dL Calcium 8.1 L (8.5-10.1) mg/dL Magnesium 2.4 (1.8-2.4) mg/dl Total Bilirubin 0.4 (0.2-1.0) mg/dL AST 11 L (15-37) U/L ALT 11 L (14-59) U/L Alkaline Phosphatase 182 H (46-116) U/L C-Reactive Protein 19.8 H* (<1.0) mg/dL NT-Pro-B Natriuret Pep 230 H (0-125) pg/mL Total Protein 6.4 (6.4-8.2) g/dl Albumin 2.3 L (3.4-5.0) g/dl Globulin 4.1 gm/dL Albumin/Globulin Ratio 0.6 L (1-2) Urine Color (Yellow) Urine Appearance (Clear) Urine pH (5.0-8.0) Ur Specific [place] (1.005-1.030) Urine Protein (Negative) Urine Glucose (UA) (Negative) Urine Ketones (Negative) Urine Occult Blood (Negative) Urine Nitrite (Negative) Urine Bilirubin (Negative) Urine Urobilinogen (0.2-1.0) Ur Leukocyte Esterase (Negative) Urine RBC (0-5) /hpf Urine WBC (0-5) /hpf Ur Squamous Epith Cells (0-5) /hpf Urine Bacteria (FEW) /hpf Urine Mucus (FEW) /hpf 05/12/20 Range/Units 14:00 WBC (3.98-10.04) K/mm3 RBC (3.98-5.22) M/mm3 Hgb (11.2-15.7) gm/dl Hct (34.1-44.9) % MCV (79.4-94.8) fl MCH (25.6-32.2) pg MCHC (32.2-35.5) g/dl RDW Std Deviation (36.4-46.3) fL Plt Count (182-369) K/mm3 MPV (9.4-12.3) fl Neutrophils % (Manual) (40-60) % Band Neutrophils % (0-10) % Lymphocytes % (Manual) (20-40) % Atypical Lymphs % % Monocytes % (Manual) (2-10) % Eosinophils % (Manual) (0.7-5.8) % Basophils % (Manual) (0.1-1.2) Platelet Estimate Hypochromasia Target Cells Tear Drop Cells RBC Morph Comment Sodium (136-145) mEq/L Potassium (3.5-5.1) mEq/L Chloride (98-107) mEq/L Carbon Dioxide (21-32) mEq/L Anion Gap (5-15) BUN (7-18) mg/dL Creatinine (0.55-1.02) mg/dL Est Cr Clr Drug Dosing mL/min Estimated GFR (MDRD) (>60) mL/min BUN/Creatinine Ratio (14-18) Glucose (74-106) mg/dL Calcium (8.5-10.1) mg/dL Magnesium (1.8-2.4) mg/dl Total Bilirubin (0.2-1.0) mg/dL AST (15-37) U/L ALT (14-59) U/L Alkaline Phosphatase (46-116) U/L C-Reactive Protein (<1.0) mg/dL NT-Pro-B Natriuret Pep (0-125) pg/mL Total Protein (6.4-8.2) g/dl Albumin (3.4-5.0) g/dl Globulin gm/dL Albumin/Globulin Ratio (1-2) Urine Color Light yellow (Yellow) Urine Appearance Clear (Clear) Urine pH 6.0 (5.0-8.0) Ur Specific [place] 1.020 (1.005-1.030) Urine Protein Negative (Negative) Urine Glucose (UA) Trace H (Negative) Urine Ketones Negative (Negative) Urine Occult Blood Negative (Negative) Urine Nitrite Negative (Negative) Urine Bilirubin Negative (Negative) Urine Urobilinogen 0.2 (0.2-1.0) Ur Leukocyte Esterase Negative (Negative) Urine RBC 0-5 (0-5) /hpf Urine WBC 0-5 (0-5) /hpf Ur Squamous Epith Cells 0-5 (0-5) /hpf Urine Bacteria Few (FEW) /hpf Urine Mucus Few (FEW) /hpf Meds: Medications Generic Name Dose Route Start Last Admin Trade Name Rowan PRN Reason Stop Dose Admin Dextrose/Sodium Chloride 1,000 mls @ 999 mls/hr 05/12/20 10:00 05/12/20 10:53 Dextrose 5%-Normal Saline IV 999 mls/hr ASDIRECTED IVONNE Administration Discontinued Medications Generic Name Dose Route Start Last Admin Trade Name Rowan PRN Reason Stop Dose Admin Heparin Sodium (Porcine) 500 units 05/12/20 17:51 05/12/20 18:30 Heparin Lock Flush 100 Units/Ml FLUSH 05/12/20 17:52 500 units ONETIME ONE Administration Hydromorphone HCl 0.5 mg 05/12/20 09:59 05/12/20 10:53 Dilaudid IVPUSH 05/12/20 10:00 0.5 mg ONETIME ONE Administration Hydromorphone HCl 0.5 mg 05/12/20 12:17 05/12/20 13:00 Dilaudid IVPUSH 05/12/20 12:18 0.5 mg ONETIME ONE Administration Hydromorphone HCl 0.5 mg 05/12/20 17:08 05/12/20 17:17 Dilaudid IVPUSH 05/12/20 17:09 0.5 mg ONETIME ONE Administration Ondansetron HCl 4 mg 05/12/20 09:58 05/12/20 10:53 Zofran IVPUSH 05/12/20 09:59 4 mg ONETIME ONE Administration Ondansetron HCl 4 mg 05/12/20 17:04 05/12/20 17:17 Zofran IVPUSH 05/12/20 17:05 4 mg ONETIME ONE Administration - Radiology Interpretation Free Text/Narrative:: 55-year-old female presents to the ED complaining of some dysphagia and sore throat. She is currently being treated with chemotherapy for small cell lung cancer primarily in the right middle lobe with known metastatic disease to skull and other bones. She completed radiotherapy end of March. Last chemo was the and of this month. She reports she is been so fatigued she has been lying in bed for the most part for the last 3 days and has not been taking adequate nutrition. She had a heck of a time getting her medications as swallowed this morning and she was worried she may have a infected throat. However on examination tongue and throat are extremely dry and she appears to be volume depleted. Reading her old notes she has a history of hyponatremia chronic headaches some vertigo post radiation to the brain and skull. Plan IV D5 normal saline at open. Tentatively but will be warm fluids that she is quite cold at this time. Routine labs to be performed. We will access her Por t-A-Cath right anterior chest. Given Zofran 4 mg IV and Dilaudid 0.5 mg IV for headache and nausea relief. Did review a chest x-ray done portably from April 19 and she has a lesion in her right mid lobe of lung with changes induced by radiotherapy. - Re-Assessments/Exams Free Text/Narrative Re-Assessment/Exam: 05/12/20 11:16 White count is 14.37 today lower than her normal 20,000. Differential pending. Hemoglobin is low at 8.0 with hematocrit of 26.9. Platelet count 332,000 05/12/20 11:32 Chemistry reveals a sodium of 135 and a potassium low normal at 3.5. Chloride is 99 with a bicarb of 27. Anion gap is 12.5. BUN is 15 with a creatinine of 0.8. BUN/creatinine ratio was slightly elevated at 18.8. Glucose is 84 with a calcium of 8.1 slightly low. Magnesium normal at 2.4 alkaline phosphatase is elevated at 182 and she has known bone metastatic disease. BNP is 230. Total protein low at 6.4 with an albumin fraction of 2.3. CRP is p ending. 05/12/20 12:11 Differential on the white count reveals 87% neutrophils. There is 1+ hypochromasia 1+ target cells and 1+ teardrop cells. No bands cells reported. CRP is elevated at 19.8. 05/12/20 12:18 I had to wake her up from a sleep. She is complaining of still having a significant headache. Will repeat Dilaudid 0.5 mg IV. Her labs do not reveal a significant volume depletion and therefore no further fluids will be given. Were going to give her some oral fluids i.e. Gatorade and see if she want some soup etc. for dinner. Tentatively receive she will be going home as we have no beds at our hospital at this time. 05/12/20 14:43 portable chest x-ray repeated shows a mass in the right lower lobe or right middle lobe of the right lung with surrounding inflammation secondary to radiation treatment. No other masses are identified. Port-A-Cath present in the right upper anterior chest. Cardiac silhouette normal. No signs of pneumonia. 05/12/20 15:43 Urinalysis shows trace of glucose negative leukocyte esterase and no signs of infection. Has taken only a few sips of fluids. She remains afebrile. She is been sleeping a major proportion of the day. 05/12/20 17:00 patient once again is having more pain particular in her head at the site of previous radiation. She had metastatic disease to the bone of her skull. Right parietal area. Will repeat Dilaudid 0.5 mg IV and Zofran 4 mg IV. The plan will do not be to allow her to go home. I will write prescriptions for Zofran 4 mg sublingually every 4-6 hours necessary for nausea relief and Percocet tabs 5/ 325 mg 1 or 2 every 4-6 hours necessary for headache and bone pain. Patient is anemic and I believe is suffering adverse effects of chemotherapy. May have to return to the infusion clinic daily for IV fluid treatments if her symptoms persist. She seems to have very little to no appetite and I believe is likely depressed secondary to her diagnosis Departure - Departure Time of Disposition: 18:06 Disposition: Home, Self-Care 01 Condition: Fair Clinical Impression: Dehydration, Chronic pain syndrome, Primary cancer of right lung metastatic to other site Adverse effect of chemotherapy Qualifiers: Encounter type: initial encounter Qualified Code(s): T45.1X5A - Adverse effect of antineoplastic and immunosuppressive drugs, initial encounter Anemia Qualifiers: Folate deficiency anemia type: drug-induced - Discharge Information *PRESCRIPTION DRUG MONITORING PROGRAM REVIEWED*: Not Applicable *COPY OF PRESCRIPTION DRUG MONITORING REPORT IN PATIENT RUFINO: Not Applicable Prescriptions: oxyCODONE HCl/Acetaminophen [Percocet 5-325 mg Tablet] 1 - 2 each PO Q4H PRN #20 tablet PRN Reason: pain relief. Ondansetron [Zofran] 4 mg BUCCAL Q6H PRN #15 tab PRN Reason: nausea or vomiting Instructions: Anemia Referrals: Ping Tamez MD [Primary Care Provider] - Forms: ED Department Discharge Additional Instructions: Evaluation in the emergency room today primarily because you were having difficulties trying to swallow your medicine this morning due to sore throat. Sore throat was secondary to significant volume depletion or dehydration with no signs of infection of the throat. You are currently experiencing a good deal of adverse side effects to chemotherapy being used to treat lung cancer. It has lowered your hemoglobin to 8.0 and normal is around 14. 3 7. Platelet count remains normal at 332,000. Urinalysis was negative for any signs of infection chest x-ray reveals changes related to radiation in the right lung field but no sign of pneumonia or infection. You were treated with Dilaudid 0.5 mg x 3 doses for headache and pain relief as well as antinausea medication Zofran 4 mg IV on 2 occasions. He did complete a full liter of IV fluids to provide rehydration. Try drink as much fluids as possible to maintain hydration. Gatorade Powerade is an ideal source of fluid replacement as it is very similar to intravenous fluids. Diet as tolerable. Have written prescriptions for Zofran 4 mg which can be taken under the tongue 1 every 4-6 hours as necessary for relief of nausea. Percocet tabs 5/325 mg 1 or 2 every 6 hours as necessary for relief of pain. Follow-up with personal physician as planned Sepsis Event Note (ED) - Evaluation Sepsis Screening Result: No Definite Risk - Focused Exam Vital Signs: Vital Signs Temp Pulse Resp BP Pulse Ox 05/12/20 09:36 36.3 C 81 19 110/54 L 99 - My Orders Last 24 Hours: My Active Orders 05/12/20 10:00 Dextrose 5%-0.9% NaCl [Dextrose 5%-Normal Saline] 1,000 ml IV ASDIRECTED 05/12/20 10:30 Implanted Port Access [RC] DAILY 05/12/20 18:31 Implanted Port De-Access [RC] ONETIME - Assessment/Plan Last 24 Hours: My Active Orders 05/12/20 10:00 Dextrose 5%-0.9% NaCl [Dextrose 5%-Normal Saline] 1,000 ml IV ASDIRECTED 05/12/20 10:30 Implanted Port Access [RC] DAILY 05/12/20 18:31 Implanted Port De-Access [RC] ONETIME
[2020-05-12] MEDS ORDERED: Ondansetron 4 MG/2 ML SDV IVPUSH ONE ×2 (09:58→17:04)
[2020-05-12] MEDS ORDERED: HYDROmorphone 0.5 MG/0.5 ML Syringe IVPUSH ONE ×3 (09:59→17:08)
[2020-05-12] MEDS ORDERED: Dextrose 5%-0.9% NaCl 1,000 ML IV SCH (10:00)
--- NOTE | 2020-05-12 16:19 | CR ---
Chest: Portable view of the chest was obtained. Comparison: Prior chest x-ray of 04/19/20. Mass is noted within the right mid to lower lung. This shows spiculated margins. This finding is felt to be fairly stable from prior exam. Lungs otherwise are clear but hyperinflated compatible with emphysematous change. Infusion port is seen. Heart size and mediastinum are normal. Impression: 1. Stable mass within the right mid to lower lung. 2. Right sided infusion port. 3. Emphysematous change. Nothing acute is seen. Diagnostic code #9 Study was dictated in [facility]
== END 2020-05-12 18:38 | disposition home or self-care (01) ==
LOC: JD.ED 09:27
DX: E86.0 Dehydration (principal); G89.4 Chronic pain syndrome; C34.90 Malignant neoplasm of unspecified part of unspecified bronchus or lung; C79.51 Secondary malignant neoplasm of bone; D64.81 Anemia due to antineoplastic chemotherapy; T45.1X5A Adverse effect of antineoplastic and immunosuppressive drugs, initial encounter; J43.9 Emphysema, unspecified; J44.9 Chronic obstructive pulmonary disease, unspecified; F32.9 Major depressive disorder, single episode, unspecified; F41.9 Anxiety disorder, unspecified; Z88.8 Allergy status to other drugs, medicaments and biological substances; Z88.5 Allergy status to narcotic agent; Z79.82 Long term (current) use of aspirin; Z79.899 Other long term (current) drug therapy; Z87.891 Personal history of nicotine dependence; Z95.828 Presence of other vascular implants and grafts
CPT/HCPCS: 36415; 71045; 80053; 81001; 83735; 83880; 85007; 85027; 86140; 96361; 96374; 96375; 96376; 99284; J1170; J1642; J2405; J7042